=== PATIENT | female | born 1975 | race Caucasian/White ===

== ENCOUNTER 2017-04-26 12:59 | Inpatient (IN) | payer OTHER ==
[~2017-04-26] VITALS: Ht 157.5 cm; Wt 69.6 kg
[~2017-04-26 12:59] MED LIST: NORMOSOL R INJ 1,000 ML IV ONE; ONDANSETRON HCL 4 MG/2 ML VIAL IV PUSH ONE; PROPOFOL 200 MG/20 ML AMP IV ONE
[2017-04-26] MEDS ORDERED: SODIUM CHLOR 0.9% 1000 ML INJ 1,000 ML IV ONE (13:01)
[2017-04-26 13:13] LABS: BASOPHIL % 0.3 % (0.0-2.0); EOSINOPHIL # 0.3 TH/MM3 (0-0.4); EOSINOPHIL % 2.7 % (0.0-4.0); HEMATOCRIT 38.7 % (35.0-46.0); HEMO FLAGS DIFF FINAL; LYMPH % 26.9 % (9.0-44.0); LYMPHOCYTE # 2.6 TH/MM3 (1.0-4.8); MEAN CELL VOLUME 91.8 FL (80.0-100.0); MEAN CORPUSCULAR HEMOGLOBIN 31.3 PG (27.0-34.0); MONO % 9.7 % (0.0-8.0); NEUT % 60.4 % (16.0-70.0); PLATELET COUNT 364 TH/MM3 (150-450); RED BLOOD COUNT 4.22 MIL/MM3 (4.00-5.30); RED CELL DISTRIBUTION WIDTH 11.9 % (11.6-17.2); WHITE BLOOD COUNT 9.8 TH/MM3 (4.0-11.0)
--- NOTE | 2017-04-26 13:18 | RADHPO ---
EXAM DATE/TIME: 04/26/2017 12:51 [facility] COMPARISON: No previous studies available for comparison. INDICATIONS : Stroke alert. Left facial drooping and left extremity weakness. RADIATION DOSE: 58.56 CTDIvol (mGy) This report was called by Dr. Torres to Dr. Curtis at 1: 15 PM MEDICAL HISTORY : Non-responsive. SURGICAL HISTORY : Non-responsive. ENCOUNTER: Initial ACUITY: 1 day PAIN SCALE: Non-responsive LOCATION: cranial TECHNIQUE: Multiple contiguous axial images were obtained of the head. Using automated exposure control and adj ustment of the mA and/or kV according to patient size, radiation dose was kept as low as reasonably a chievable to obtain optimal diagnostic quality images. FINDINGS: CEREBRUM: The ventricles are normal for age. No evidence of midline shift, mass lesion, hemorrhage or acute in farction. No extra-axial fluid collections are seen. POSTERIOR FOSSA: The cerebellum and brainstem are intact. The 4th ventricle is midline. The cerebellopontine angle i s unremarkable. EXTRACRANIAL: The visualized portion of the orbits is intact. SKULL: The calvaria is intact. No evidence of skull fracture. CONCLUSION: Normal examination for a patient of this age. Jerry Torres MD on April 26, 2017 at 13:14 Board Certified Radiologist. This report was verified electronically.
[2017-04-26 13:23] LABS: CHLORIDE 106 MEQ/L (98-107); POTASSIUM 3.4 MEQ/L (3.5-5.1); SODIUM (NA) 138 MEQ/L (136-145)
[2017-04-26 13:30] VITALS: O2SAT 99
[2017-04-26] MEDS ORDERED: ALTEPLASE DRIP IV ONE (13:30)
[2017-04-26] MEDS ORDERED: MISCELLANEOUS NURSING INFORMATION XX PRN (13:30)
[2017-04-26] MEDS ORDERED: SODIUM CHLORIDE 0.9% 50 ML BAG IVF ONE (13:30)
[2017-04-26] MEDS ORDERED: ALTEPLASE BOLUS 9 MG/9 ML SYR IV ONE (13:30)
[2017-04-26 13:33] LABS: BETA HCG QUANT LESS THAN 1 MIU/ML (0-5)
[2017-04-26 13:36] LABS: BLOOD, URINE NEG (NEG); GLUCOSE,URINE NEG (NEG); KETONE, URINE NEG (NEG); NITRITE,URINE NEG (NEG)
[2017-04-26 13:40] LABS: METHOD OF COLLECTION CATH; URINE COLOR STRAW (YELLW/STRAW)
[2017-04-26 13:41] LABS: RBC, URINE 0-3 /hpf (0-3)
[2017-04-26 13:42] LABS: GLOMERULAR FILTRATION RATE 91 ML/MIN (>89)
[2017-04-26 13:43] LABS: BLOOD UREA NITROGEN 10 MG/DL (7-18)
--- NOTE | 2017-04-26 13:51 | PD ---
HPI Chief Complaint: Neuro Symptoms/ Deficits Time Seen by Provider: 13:01 Travel History International Travel<30 days: No Contact w/Intl Traveler<30days: No Traveled to known affect area: No History of Present Illness HPI Patient is a 42-year-old female who comes in with sudden onset of left-sided paralysis as well as left facial droop. 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 She says that she was feeling dizzy and hot and developed a right-sided headache prior to the symptoms. Per coworkers, she all of a sudden was unable to speak to them. On arrival to the emergency department, she is unable to move her left side. She says she has a slight right-sided headache, denies any other symptoms. She denies taking any medications or supplements. Her coworker says that she has been under a lot of stress lately. PFSH Past Medical History Medical other: Yes (UNABLE TO OBTAIN AT THIS TIME) ?: Unknown Social History Alcohol Use: No Tobacco Use: No Substance Use: No Allergies-Medications (Allergen,Severity, Reaction): Coded Allergies: Shellfish (Verified Allergy, Unknown, 04/26/17) Reported Meds & Prescriptions Reported Meds & Active Scripts Active No Active Prescriptions or Reported Medications Review of Systems Except as stated in HPI: all other systems reviewed are Neg General / Constitutional: No: Fever, Chills Eyes: No: Blurred Vision HENT: Positive: Headaches Cardiovascular: No: Chest Pain or Discomfort Respiratory: No: Shortness of Breath Gastrointestinal: No: Nausea, Vomiting Musculoskeletal: No: Pain Skin: No Change in Pigmentation Neurologic: Positive: Dizziness, Sensory Disturbance Physical Exam Narrative GENERAL: Awake and alert, in no acute distress. SKIN: Focused skin assessment warm/dry. HEAD: Atraumatic. Normocephalic. EYES: Pupils equal and round. No scleral icterus. Left-sided lateral gaze palsy. ENT: Mucous membranes pink and moist. NECK: Trachea midline. No JVD. CARDIOVASCULAR: Regular rate and rhythm. No murmur appreciated. RESPIRATORY: No accessory muscle use. Clear to auscultation. Breath sounds equal bilaterally. GASTROINTESTINAL: Abdomen soft, non-tender, nondistended. MUSCULOSKELETAL: No obvious deformities. No clubbing. No cyanosis. No edema. NEUROLOGICAL: Awake and alert. Left-sided facial droop. Slight slurring of speech. No resistance to gravity of the left arm. No resistance to gravity of the left leg. Slight movement of her left leg. PSYCHIATRIC: Appropriate mood and affect; insight and judgment normal. Data Data Last Documented VS Vital Signs Date Time Temp Pulse Resp B/P Pulse Ox O2 Delivery O2 Flow Rate FiO2 04/26/17 13:30 99 Room Air Orders Cath For Specimen (04/26/17 13:) Neuro Checks Q2HX12,Q4H (04/26/17 13:01) Nursing Bedside Swallow Assess .ONCE (04/26/17 13:) Activity Bed Rest (04/26/17 13:01) Diet Npo (04/26/17 Lunch) Prothrombin Time / Inr (Pt) (04/26/17 13:) Act Partial Throm Time (Ptt) (04/26/17 13:) Complete Blood Count With Diff (04/26/17 13:) Basic Metabolic Panel (Bmp) (04/26/17 13:) Fibrinogen (04/26/17 13:) Creatine Kinase (Cpk) (04/26/17 13:01) Troponin I (04/26/17 13:01) Ua Includes Microscopic (04/26/17 13:01) Drug Screen, Random Urine (04/26/17 13:) Type And Screen (04/26/17 13:) Ct Brain W/O Iv Contrast(Rout) (04/26/17 ) Chest, Single Ap (04/26/17 ) Beta Hcg (Quant/Titer) (04/26/17 13:01) Consult Neurology (04/26/17 13:01) Sodium Chlor 0.9% 1000 Ml Inj (Ns 1000 M (04/26/17 13:01) Blood Glucose (04/26/17 13:01) Ecg Monitoring (04/26/17 13:01) Iv Access Insert/Monitor (04/26/17 13:) NPO (04/26/17 13:01) Oximetry (04/26/17 13:01) Oxygen Administration (04/26/17 13:01) Resp Oxygen Hever C Titrat 1-4 L (04/26/17 13:01) Cta Brain W Iv Contrast W 3d (04/26/17 13:16) Cta Neck W Iv Contrast W 3d (04/26/17 13:16) ^ Call Pharmacy (04/26/17 13:16) Nih Stroke Scale - Nihss .ONCE (04/26/17 13:16) Urinary Catheter Management MEGHNA.Q8H (04/26/17 13:16) Urinary Catheter Insert/Apply (04/26/17 13:16) Anticoagulant Alert (04/26/17 13:16) ^ Post Infusion Restrictions (04/26/17 13:16) ^ Medication Alert (04/26/17 13:16) Vital Signs (Adult) .As directed (04/26/17 13:16) Notify Dr: Blood Pressure (04/26/17 13:16) ^ Medication Alert (04/26/17 13:16) Alteplase Bolus (Activase Bolus) (04/26/17 13:30) Alteplase Drip (Activase Drip) (04/26/17 13:30) Sodium Chloride 0.9% Inj (Ns Inj) (04/26/17 13:30) Misc Nursing Information (04/26/17 13:30) Resp Oxygen Hever C Titrat 1-4 L (04/26/17 ) (Hub Use Only)Inp Phy Cons/Ref (04/26/17 ) Lupus Anticoagulant Drvvt (04/26/17 13:41) Cardiolipin Abs Igg,Igm,Iga (04/26/17 13:41) Protein C Activity (04/26/17 13:41) Protein S Activity (04/26/17 13:41) Factor V (5) Mutation (Leiden) (04/26/17 13:41) Prothrombin [id number] Mutation (04/26/17 13:41) Lipid Profile (04/26/17 13:41) Scd Bilateral/Knee High MEGHNA.QSHIFT (04/26/17 13:41) Consult Rehab Medicine (04/26/17 ) Admit Order (Ed Use Only) (04/26/17 ) CKMB (04/26/17 13:05) CKMB% (04/26/17 13:05) Labs Laboratory Tests Test 04/26/17 04/26/17 13:05 13:33 White Blood Count 9.8 TH/MM3 Red Blood Count 4.22 MIL/MM3 Hemoglobin 13.2 GM/DL Hematocrit 38.7 % Mean Corpuscular Volume 91.8 FL Mean Corpuscular Hemoglobin 31.3 PG Mean Corpuscular Hemoglobin 34.0 % Concent Red Cell Distribution Width 11.9 % Platelet Count 364 TH/MM3 Mean Platelet Volume 8.0 FL Neutrophils (%) (Auto) 60.4 % Lymphocytes (%) (Auto) 26.9 % Monocytes (%) (Auto) 9.7 % Eosinophils (%) (Auto) 2.7 % Basophils (%) (Auto) 0.3 % Neutrophils # (Auto) 6.0 TH/MM3 Lymphocytes # (Auto) 2.6 TH/MM3 Monocytes # (Auto) 0.9 TH/MM3 Eosinophils # (Auto) 0.3 TH/MM3 Basophils # (Auto) 0.0 TH/MM3 CBC Comment DIFF FINAL Differential Comment Prothrombin Time 9.8 SEC Prothromb Time International 0.9 RATIO Ratio Activated Partial 25.8 SEC Thromboplast Time Fibrinogen 337 mg/dL Sodium Level 138 MEQ/L Potassium Level 3.4 MEQ/L Chloride Level 106 MEQ/L Carbon Dioxide Level 20.8 MEQ/L Anion Gap 11 MEQ/L Blood Urea Nitrogen 10 MG/DL Creatinine 0.70 MG/DL Estimat Glomerular Filtration 91 ML/MIN Rate Random Glucose 105 MG/DL Calcium Level 8.5 MG/DL Total Creatine Kinase 238 U/L Creatine Kinase MB 1.6 NG/ML Creatine Kinase MB % 0.7 % Troponin I LESS THAN 0.02 NG/ML Triglycerides Level 76 MG/DL Cholesterol Level 194 MG/DL LDL Cholesterol 81 MG/DL HDL Cholesterol 97.6 MG/DL Cholesterol/HDL Ratio 1.98 RATIO Human Chorionic Gonadotropin, LESS THAN 1 Quant MIU/ML Blood Type A POSITIVE Antibody Screen NEGATIVE Blood Bank Comment Urine Collection Type CATH Urine Color STRAW Urine Turbidity CLEAR Urine pH 6.0 Urine Specific [place] 1.005 Urine Protein NEG mg/dL Urine Glucose (UA) NEG mg/dL Urine Ketones NEG mg/dL Urine Occult Blood NEG Urine Nitrite NEG Urine Bilirubin NEG Urine Leukocyte Esterase NEG Urine RBC 0-3 /hpf Urine Opiates Screen NEG Urine Barbiturates Screen NEG Urine Amphetamines Screen NEG Urine Benzodiazepines Screen NEG Urine Cocaine Screen NEG Urine Cannabinoids Screen NEG MDM Medical Decision Making Medical Screen Exam Complete: Yes Emergency Medical Condition: Yes Interpretation(s) ECG shows normal sinus rhythm at 87, no ST elevation or depression, right bundle -branch block. Differential Diagnosis ICH versus ischemic stroke versus TIA Narrative Course Patient is a 42-year-old female comes in with sudden onset of left-sided weakness and facial droop. Exam shows a left-sided facial droop and flaccid paralysis of her left arm and leg. Patient placed on monitor, taken to CT immediately. CT head is negative for bleed. Patient's blood pressure is controlled. I spoke with Dr. Gomez of neurology who suggests starting TPA She was started on TPA. Labs were sent, so far show no acute abnormalities. CTA of the brain and neck performed. Patient monitored with there are checks. Monitored on patternmaker grader while on TPA. She'll be transferred to the main hospital for ICU admission. Critical Care Narrative Aggregate critical care time was 35 minutes. Time to perform other separately billable procedures was not included in the critical care time. My time did not include minutes spent treating any other patients simultaneously or on activities that did not directly contribute to the patient's treatment. The services I provided to this patient were to treat and/or prevent clinically significant deterioration that could result in: Serious injury or I provided critical care services requiring my management, as noted below: Chart data review, documentation time, medication orders and management, vital sign assessments/reviewing monitor data, ordering and reviewing lab tests, ordering and interpreting/reviewing x-rays and diagnostic studies, care of the patient and discussion of the patient with the admitting physicians. Diagnosis Primary Impression: CVA (cerebral vascular accident) Qualified Code: I63.9 - Cerebrovascular accident (CVA), unspecified mechanism Admitting Information Admitting Physician Requests: Admit Scripts No Active Prescriptions or Reported Meds Condition: Lisa Rankin MD April 26, 2017 13:51
[2017-04-26] MEDS: SODIUM CHLOR 0.9% 1000 ML INJ 1,000 ML IV SCH (14:10)
--- NOTE | 2017-04-26 14:11 | RADHPO ---
EXAM DATE/TIME: 04/26/2017 14:01 [facility] COMPARISON: No previous studies available for comparison. INDICATIONS : Stroke alert. MEDICAL HISTORY : None. SURGICAL HISTORY : None. ENCOUNTER: Initial ACUITY: 1 day PAIN SCORE: Non-responsive. LOCATION: Bilateral chest FINDINGS: A single view of the chest demonstrates the lungs to be symmetrically aerated without evidence of mas s, infiltrate or effusion. The cardiomediastinal contours are unremarkable. Osseous structures are intact. CONCLUSION: No acute cardiopulmonary disease radiographically. Cyrus Orozco MD on April 26, 2017 at 14:08 Board Certified Radiologist. This report was verified electronically.
[2017-04-26] MEDS ORDERED: MAGNESIUM OXIDE 400 MG TAB PO PRN (14:15)
[2017-04-26] MEDS ORDERED: POTASSIUM PHOSPHATE MONOBASIC 500 MG TAB PO PRN (14:15)
[2017-04-26] MEDS ORDERED: CHLORHEXIDINE GLUCONATE 2 % 1 PACK (2 CLOTHS) TOP PRN (14:15)
[2017-04-26] MEDS ORDERED: POTASSIUM CHLOR 20 MEQ PREMIX 100 ML IV PRN ×2 (14:15)
[2017-04-26] MEDS ORDERED: POTASSIUM PHOSPHATE MONOBASIC 500 MG TAB PO/TUBE PRN (14:15)
[2017-04-26] MEDS ORDERED: MAGNESIUM SULFATE INJ 4 GM in SODIUM CHLORIDE 0.9% INJ 92 ML IV PRN (14:15)
[2017-04-26] MEDS ORDERED: ONDANSETRON HCL 4 MG/2 ML VIAL IV PRN (14:15)
[2017-04-26] MEDS ORDERED: MISCELLANEOUS NURSING INFORMATION XX SCH (14:15)
[2017-04-26] MEDS ORDERED: MAGNESIUM SULFATE INJ 2 GM in SODIUM CHLORIDE 0.9% INJ 96 ML IV PRN (14:15)
[2017-04-26 14:22] LABS: APTT (PATIENT) 25.8 SEC (24.3-30.1); INTERNATIONAL NORMALIZED RATIO 0.9 RATIO; PROTHROMBIN TIME - PATIENT 9.8 SEC (9.8-11.6)
[2017-04-26] MEDS ORDERED: IOHEXOL 350 MG/ML 10 ML VIAL (for RAD DIAG) IV ONE (14:23)
--- NOTE | 2017-04-26 14:27 | RADHPO ---
EXAM DATE/TIME: 04/26/2017 13:39 [facility] COMPARISON: No previous studies available for comparison. INDICATIONS : Stroke alert. Left sided weakness and facial numbness. IV CONTRAST: 75 cc Omnipaque 350 (iohexol) IV ; Cumulative dose for multiple exams. RADIATION DOSE: 42.21 CTDIvol (mGy) ; Combined studies MEDICAL HISTORY : Non-responsive. SURGICAL HISTORY : Non-responsive. ENCOUNTER: Initial ACUITY: 1 day PAIN SCALE: 0/10 LOCATION: cranial TECHNIQUE: Volumetric scanning was performed using a multi-row detector CT scanner. The data was post processed with a variety of visualization algorithms including full volume maximum intensity projection, multi -planar sliding thin slab reformation, curved planar reformation, and surface rendering techniques. Using automated exposure control and adjustment of the mA and/or kV according to patient size, radiat ion dose was kept as low as reasonably achievable to obtain optimal diagnostic quality images. FINDINGS: CTA NECK: There is 3 vessel arch anatomy. The proximal arch vessels are widely patent. There is a dominant left vertebral artery. The vertebral arteies are otherwise patent bilaterally with filling of the basilar artery. The carotid arteries are patent bilaterally. There is no significant atherosclerosis or sten osis. Internal carotid arteries are patent with flow to the cervical vessels bilaterally. External ca rotid arteries are also patent bilaterally. CTA HEAD: There is occlusion of the right proximal M1 segment. There is collateral filling of the M2 and M3 bra nches. There is a complete point hope ira of [place]. There is excellent visualization of the major intracrani al arteries out to the second-order branch vessels. There is no evidence for aneurysm and no evidenc e for vascular malformation. NON-ANGIOGRAPHIC FINDINGS: The mendoza-white matter differentiation is grossly intact. Basal ganglia appear symmetrical bilaterally . Ventricles are normal in size without evidence for hydrocephalus. No significant intra-or extra-axi al fluid collections or hemorrhage. Paranasal sinuses are clear. No significant cervical adenopathy o r focal mass. Small 5 mm right thyroid nodule visualized lung apex is clear. The visualized main pulm onary artery branches are also patent. CONCLUSION: 1. Occlusion of the right M1 segment. Grossly intact mendoza-white matter differentiation with gross ASP ECT score of 10/10. 2. Incidental finding of 5 mm right thyroid nodule. This can be further evaluated with ultrasound on an outpatient basis. Cyrus Orozco MD on April 26, 2017 at 14:10 Board Certified Radiologist. This report was verified electronically.
--- NOTE | 2017-04-26 14:32 | RADHPO ---
EXAM DATE/TIME: 04/26/2017 13:39 [facility] COMPARISON: No previous studies available for comparison. INDICATIONS : Stroke alert. Left sided weakness and facial numbness. IV CONTRAST: 75 cc Omnipaque 350 (iohexol) IV ; Cumulative dose for multiple exams. RADIATION DOSE: 42.21 CTDIvol (mGy) ; Combined studies MEDICAL HISTORY : Non-responsive. SURGICAL HISTORY : Non-responsive. ENCOUNTER: Initial ACUITY: 1 day PAIN SCALE: 0/10 LOCATION: neck Elevated flow velocities and ICA/CCA ratios have been found to correlate with increased degrees of vessel stenosis, calculated as percentage of diameter relative to a normal segment of distal ICA/CCA. TECHNIQUE: Volumetric scanning was performed using a multirow detector CT scanner. The data was post processed with a variety of visualization algorithms including full-volume maximum intensity projection, multip lanar sliding thin-slab reformation, curved-planar reformation, and surface-rendering techniques. Us ing automated exposure control and adjustment of the mA and/or kV according to patient size, radiatio n dose was kept as low as reasonably achievable to obtain optimal diagnostic quality images. FINDINGS: AORTIC ARCH: There is a three-vessel origin of the great vessels from the aorta. No evidence of ostial narrowing. RIGHT CAROTID: The common carotid artery is intact. The carotid bulb has a normal configuration without ulceration o r narrowing. The internal carotid artery lumen is smooth without stenosis. The external carotid doretha ry is intact. LEFT CAROTID: The common carotid artery is intact. The carotid bulb has a normal configuration without ulceration or narrowing. The internal carotid artery lumen is smooth without stenosis. The external carotid ar keira is intact. VERTEBRALS: The right vertebral artery is small in caliber. No stenotic lesions are seen. NON-ANGIOGRAPHIC FINDINGS: No significant cervical mass or adenopathy. 5 mm right thyroid nodule. Lung apices are clear. Osseous structures are intact without evidence for acute bony fracture or focal bony destruction. CONCLUSION: 1. Standard 3 vessel arch anatomy. 2. Widely patent carotid arteries. 3. Dominant left vertebral artery. Vertebral arteries are patent bilaterally. 4. 5 mm right thyroid nodule. This can be further evaluated with ultrasound on an outpatient basis. Cyrus Orozco MD on April 26, 2017 at 14:26 Board Certified Radiologist. This report was verified electronically.
[2017-04-26] MEDS ORDERED: fentaNYL CITRATE 250 MCG/5 ML AMP ONE (14:43)
[2017-04-26] MEDS ORDERED: MIDAZOLAM HCL 5 MG/5 ML VIAL ONE (14:43)
[2017-04-26] MEDS ORDERED: VERAPAMIL HCL 5 MG/2 ML VIAL ONE ×3 (14:54→17:26)
[2017-04-26 15:00] LABS: AMPHETAMINE, URINE NEG (NEG); BARBITURATES, URINE NEG (NEG); COCAINE, URINE NEG (NEG)
[2017-04-26] MEDS ORDERED: DOPamine INJ PREMIX 500 ML ONE (15:03)
[2017-04-26] MEDS ORDERED: VASOPRESSIN INJ 20 UNITS/ML VIAL ONE ×2 (15:29→17:22)
[2017-04-26] MEDS ORDERED: niCARdipine INJ 25 MG in SODIUM CHLOR 0.9% 250 ML INJ 250 ML IV SCH (15:30)
--- NOTE | 2017-04-26 15:30 | HHI.HP ---
[facility] Service Critical Care Medicine Primary Care Physician Tenzin Villalba MD Admission Diagnosis CVA Diagnosis: Chief Complaint: left sided weakness Travel History International Travel<30 Days: No Contact w/Intl Traveler <30 Da: No Traveled to Known Affected Are: No History of Present Illness This is a 42yF with unremarkable past medical history who presents to the [facility] emergency department with new-onset left-sided weakness and slurred speech. She is an employee of [employer] who had a witnessed onset of her symptoms at 12:45pm. In the [facility] ED she was immediately taken for non-contrasted head CT which was negative for acute hemorrhage. She was given iv tpa which was instituted 36 minutes after arrival, per my conversation with the preventive maintenance coordinator. She was then emergently transferred to [facility]. CT angiography demonstrated acute right m1 cut-off. She was taken by [facility] and arrived directly to the IR suite, where I met and evaluated the patient. Due to the acute nature of her illness and her dysarthria, a complete history is not obtainable. She does endorse right-sided headache, although denied any chest pain, shortness of breath. Review of Systems ROS Limitations: Clinical Condition, Altered Mental Status, Speech Impaired Past Family Social History Allergies: Coded Allergies: Shellfish (Verified Allergy, Unknown, 04/26/17) Past Medical History per other records, none. patient is unable to participate in a complete past medical history. Past Surgical History per other records, none. patient is unable to participate in a complete past surgical history. Reported Medications per other records, none. patient is unable to participate in a complete medication list. she does deny any anticoagulant medicines. Active Ordered Medications See MAR Family History patient unable to participate in a complete family history due to her clinical condition. Social History patient is unable to participate in social history due to her clinical condition. 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 Physical Exam Vital Signs Vital Signs Date Time Temp Pulse Resp B/P Pulse Ox O2 Delivery O2 Flow Rate FiO2 04/26/17 13:30 99 Room Air 04/26/17 13:00 99 Physical Exam gen: middle-aged female, lying in bed, severe distress due to her new weakness heent: pupils, equal, round, reactive, conjugate. mucous membranes moist. noted left-sided facial droop neck: no jvd. trachea midline. chest: equal chest rise. not tachypneic cv: normal rate, regular rhythm. sinus by tele. abd: soft, nontender, nondistended. no guarding. extr: no peripheral edema. distal pulses 2+ neuro: RASS 0. MILY 0/5 in LUE/LLE. MILY 5/5 RUE/RLE. dysarthric. left-sided facial droop. receptive and expressive language intact. noted left-sided neglect.tongue is midline. Laboratory Laboratory Tests Test 04/26/17 04/26/17 13:05 13:33 White Blood Count 9.8 Red Blood Count 4.22 Hemoglobin 13.2 Hematocrit 38.7 Mean Corpuscular Volume 91.8 Mean Corpuscular Hemoglobin 31.3 Mean Corpuscular Hemoglobin 34.0 Concent Red Cell Distribution Width 11.9 Platelet Count 364 Mean Platelet Volume 8.0 Neutrophils (%) (Auto) 60.4 Lymphocytes (%) (Auto) 26.9 Monocytes (%) (Auto) 9.7 Eosinophils (%) (Auto) 2.7 Basophils (%) (Auto) 0.3 Neutrophils # (Auto) 6.0 Lymphocytes # (Auto) 2.6 Monocytes # (Auto) 0.9 Eosinophils # (Auto) 0.3 Basophils # (Auto) 0.0 CBC Comment DIFF FINAL Differential Comment Prothrombin Time 9.8 Prothromb Time International 0.9 Ratio Activated Partial 25.8 Thromboplast Time Fibrinogen 337 Sodium Level 138 Potassium Level 3.4 Chloride Level 106 Blood Urea Nitrogen 10 Creatinine 0.70 Estimat Glomerular Filtration 91 Rate Random Glucose 105 Human Chorionic Gonadotropin, LESS THAN 1 Quant Blood Type A POSITIVE Antibody Screen NEGATIVE Blood Bank Comment Urine Collection Type CATH Urine Color STRAW Urine Turbidity CLEAR Urine pH 6.0 Urine Specific [place] 1.005 Urine Protein NEG Urine Glucose (UA) NEG Urine Ketones NEG Urine Occult Blood NEG Urine Nitrite NEG Urine Bilirubin NEG Urine Leukocyte Esterase NEG Urine RBC 0-3 Urine Opiates Screen NEG Urine Barbiturates Screen NEG Urine Amphetamines Screen NEG Urine Benzodiazepines Screen NEG Urine Cocaine Screen NEG Urine Cannabinoids Screen NEG Result Diagram: 04/26/17 1305 04/26/17 1305 Imaging Last Impressions Neck CTA 04/26/17 1316 Signed Impressions: Service Date/Time: Wednesday, April 26, 2017 13:39 - CONCLUSION: 1. Standard 3 vessel arch anatomy. 2. Widely patent carotid arteries. 3. Dominant left vertebral artery. Vertebral arteries are patent bilaterally. 4. 5 mm right thyroid nodule. This can be further evaluated with ultrasound on an outpatient basis. Cyrus Orozco MD Head CTA 04/26/17 1316 Signed Impressions: Service Date/Time: Wednesday, April 26, 2017 13:39 - CONCLUSION: 1. Occlusion of the right M1 segment. Grossly intact mendoza-white matter differentiation with gross ASPECT score of 10/10. 2. Incidental finding of 5 mm right thyroid nodule. This can be further evaluated with ultrasound on an outpatient basis. Cyrus Orozco MD Head CT 04/26/17 0000 Signed Impressions: Service Date/Time: Wednesday, April 26, 2017 12:51 - CONCLUSION: Normal examination for a patient of this age. Jerry Torres MD Chest X-Ray 04/26/17 0000 Signed Impressions: Service Date/Time: Wednesday, April 26, 2017 14:01 - CONCLUSION: No acute cardiopulmonary disease radiographically. Cyrus Orozco MD Assessment and Plan Assessment and Plan Assessment: 42yF with acute right M1 MCA CVA now s/p systemic TPA and currently in interventional radiology for mechanical thrombectomy. She is very critically ill at this time. Active Problems: Acute right M1 MCA CVA s/p systemic TPA and endovascular thrombectomy Dysarthria Left-sided hemiparesis Left-sided facial droop Plan: -- admit to ICU -- SBP goals per my discussion with interventionalist will be 140 - 160 -- phenylephrine and nicardipine will be used prn to achieve these goals. -- q1h neuro checks -- interval head CT in 24h -- nursing bedside swallow eval before advancing diet -- 2d echo -- lipid panel -- telemetry -- holding off on ASA or anticoagulation given TPA. -- SCDs -- pepcid iv for gi prophylaxis Critical care time: 65 minutes, exclusive of separately billable procedures. Code Status Full Code Remi Freeman MD April 26, 2017 15:30
[2017-04-26 15:32] LABS: HDL CHOLESTEROL 97.6 MG/DL (40.0-60.0)
[2017-04-26] MEDS ORDERED: METOCLOPRAMIDE HCL 10 MG/2 ML VIAL ONE (15:38)
[2017-04-26 16:05] LABS: ANION GAP 11 MEQ/L (5-15); BICARBONATE 20.8 MEQ/L (21.0-32.0)
[2017-04-26 16:09] LABS: CREATINE KINASE 238 U/L (26-192)
[2017-04-26 16:26] LABS: CKMB 1.6 NG/ML (0.5-3.6)
[2017-04-26] MEDS ORDERED: HEPARIN SODIUM - IV 10,000 UNITS/10 ML VIAL ONE (16:32)
--- NOTE | 2017-04-26 17:04 | MB ---
cc: MIRIAM POP DATE OF CONSULTATION 04/26/17 REASON FOR CONSULTATION Stroke alert HISTORY OF PRESENT ILLNESS Ms. Toledo is a 42-year-old female who had the acute onset at 12:45 today of a dense left-sided weakness as well as speech difficulty. She came immediately to the emergency room and a stroke alert was called. In the interim, she has had improvement in his speech but continues with dense left-sided weakness as well as a left neglect. NIH stroke scale initially was 14. PAST MEDICAL HISTORY Unremarkable. MEDICATIONS None. ALLERGIES SHELLFISH She has never had IV contrast dye NEUROLOGIC EXAMINATION The patient is alert. Speech is dysarthric. Cranial nerves: There is a left facial droop. The pupils are equal. The extraocular movements are intact. She does have a left-sided neglect. On motor exam, she is very weak in the left arm rated at about 1/5 proximally and distally. Left leg is 2/5 proximal and distal. She has normal strength on the right side. Reflexes are symmetric. IMAGING STUDIES CT brain negative. LABORATORY DATA White count 9800, hemoglobin 13.2, hematocrit 38.7%, platelet count 364,000. Sodium is 138, potassium 3.4, chloride 106, glucose was normal at 98. Beta hCG less than one. Coags pending. UA pending. Telemetry sinus rhythm. IMPRESSION Acute right hemisphere stroke. RECOMMENDATIONS The patient is a candidate for IV TPA and has received the bolus of TPA and is currently receiving the infusion. Would also recommend CT angiography of the neck and brain stat to be sure there is no large vessel occlusion amendable to INR given the high NIH stroke scale. Follow the post TPA protocol. The patient will be transferred to the main hospital following the CT angiogram for further monitoring and evaluation. I discussed the case with Dr. Jason Grayson of interventional radiology who is going to be reviewing the CTA results as soon as they are available to determine whether or not she would be a candidate for intervention. MD DAKOTA Franco/ /1:42 PM /4:48 PM
[2017-04-26 17:47] LABS: BLOOD GAS BASE EXCESS -7.7 mmol/L (-2-2); BLOOD GAS CARBOXYHEMOGLOBIN 2.3 % (0-4); BLOOD GAS HCO3 17 mmol/L (22-26); BLOOD GAS METHEMOGLOBIN 0.7 % (0-2); BLOOD GAS O2 HGB SATURATION 96 % (90-100); BLOOD GAS OXYGEN CONTENT 14.3 Vol % (12.0-20.0); BLOOD GAS PCO2 35 mmHg (38-42); BLOOD GAS PO2 181 mmHG (61-120); BLOOD GAS TOTAL HGB 10.3 G/DL (12.0-16.0); TEMP CORR TO 98.6
[2017-04-26 17:48] LABS: CRITICAL VALUE NO; OXYGEN DEVICE VENTILATOR
[2017-04-26 17:52] LABS: DRAW SITE RT RADIAL; FIO2 100 %; NUMBER OF ARTERIAL PUNCTURES 1; STAT YES; ULNAR PULSE Y; VENT SETTINGS AC/VT500/R14/P5
--- NOTE | 2017-04-26 17:57 | PD.CONS ---
HPI Service Neurosurgery Consult Requested By Dr Freeman Reason for Consult Stroke alert Primary Care Physician Tenzin Villalba MD History of Present Illness This is a 42 year old female who presents to the [facility] emergency department with new-onset left-sided weakness and slurred speech. She is an employee of [employer] who had a witnessed onset of her symptoms at 12:45pm. In the [facility] ED she was immediately taken for non-contrasted head CT which was negative for acute hemorrhage. No seizure activity. She was given iv TPA. She was then emergently transferred to [facility]. CT angiography demonstrated acute right m1 cut-off. She was taken by [facility] and arrived directly to the IR suite Review of Systems ROS Limitations: Clinical Condition, Intubated, Altered Mental Status Past Family Social History Allergies: Coded Allergies: Shellfish (Verified Allergy, Unknown, 04/26/17) Past Medical History No medical conditions Active Ordered Medications Current Medications Sodium Chloride (NS 1000 ml Inj) 1,000 ml @ 70 mls/hr [id number] ONCE IV ; Start 04/26/17 at 13:01; Stop 04/27/17 at 03:18; Status DC Alteplase, Recombinant 5.6 mg 5.6 mg ONCE ONCE IV Last administered on 13:30; Start 04/26/17 at 13:30; Stop 04/26/17 at 13:31; Status DC Alteplase, Recombinant/ Syringe / Bag (Activase Drip/ Syringe/Bag) 50.4999 ml @ 50.5 mls/ hr ONCE ONCE IV Last administered on 04/26/17 13:30; Start at 13:30; Stop 04/26/17 at 14:29; Status DC Sodium Chloride (NS Inj) 30 ml ONCE ONCE IVF ; Start 04/26/17 at 13:30; Stop at 13:31; Status DC Miscellaneous Information No Heparin, Warfarin, Aspir... UNSCH PRN XX SEE DOSE INSTRUCTIONS; Start 04/26/17 at 13:30; Stop 04/27/17 at 13:29; Status DC Magnesium Oxide 800 mg 800 mg UNSCH PRN PO For Magnesium 1.2 - 1.6 mg/dL; Start 04/26/17 at 14:15 Magnesium Sulfate 4 gm/Sodium Chloride 100 ml @ 50 mls/hr UNSCH PRN IV For Magnesium 0.9 - 1.1 mg/dL; Start 04/26/17 at 14:15 Magnesium Sulfate 2 gm/Sodium Chloride 100 ml @ 50 mls/hr UNSCH PRN IV For Magnesium 1.2 - 1.6 mg/dL; Start 04/26/17 at 14:15 Potassium Chloride 100 ml @ 50 mls/hr Q2H PRN IV For Potassium 2.8 - 3.2 mEq/L ; Start 04/26/17 at 14:15 Potassium Chloride 100 ml @ 50 mls/hr Q2H PRN IV For Potassium 3.3 - 3.5 mEq/ L Last administered on 04/27/17 13:31; Start 04/26/17 at 14:15 Potassium Chloride 100 ml @ 50 mls/hr Q2H PRN IV For Potassium 2.8 - 3.2 mEq/ L Last administered on 04/30/17 01:53; Start 04/26/17 at 14:15 Potassium Chloride (KCl 40 Meq Premix Inj) 100 ml @ 25 mls/hr UNSCH PRN IV For Potassium 3.3 - 3.5 mEq/L Last administered on 04/29/17 06:28; Start at 14:15 Potassium Phosphate (K-Phos) 2,000 mg Q4H PRN PO For Phosphorus < 2.5 mg/dL Last administered on 04/28/17 05:25; Start 04/26/17 at 14:15 Potassium Phosphate 2000 mg 2,000 mg UNSCH PRN PO/TUBE SEE LABEL COMMENTS; Start 04/26/17 at 14:15 Sodium Phosphate/ Sodium Chloride (Sodium Phosphate Inj/NS 250 ml Inj) 250 ml @ 42 mls/hr UNSCH PRN IV For Phosphorus < 2.5 mg/dL Last administered on 18:52; Start 04/26/17 at 14:15 Dextrose (D50w (Vial) Inj) 25 ml UNSCH PRN IV PUSH HYPOGLYCEMIA-SEE COMMENTS; Start 04/26/17 at 14:15 Insulin Human Regular 1 1 ACHS AND 3AM SQ ; Start 04/26/17 at 16:00 Sodium Chloride (NS 1000 ml Inj) 1,000 ml @ 84 mls/hr [id number] IV ; Start at 14:10; Stop 04/27/17 at 13:32; Status DC Pantoprazole Sodium (Protonix Inj) 40 mg DAILY IV Last administered on 08:17; Start 04/27/17 at 09:00 Ondansetron HCl (Zofran Inj) 4 mg Q6H PRN IV NAUSEA OR VOMITING; Start at 14:15 Albuterol/ Ipratropium (Duoneb Neb) 1 ampule Q2HR NEB PRN INH WHEEZING; Start 04/26/17 at 14:15 Miscellaneous Information 1 [id number] XX ; Start 04/26/17 at 14:15 Chlorhexidine Gluconate (Chlorhexidine 2% Cloth) 3 pack Taper DAILY@04 TOP Last administered on 04/30/17 04:00; Start 04/27/17 at 04:00; Stop 04/23/18 at 03:59 Chlorhexidine Gluconate (Chlorhexidine 2% Cloth) 3 pack UNSCH PRN TOP HYGIENIC CARE; Start 04/26/17 at 14:15 Senna/Docusate Sodium (Avelina-Colace) 1 tab BID PO Last administered on 04/30/17 08:17; Start 04/26/17 at 21:00 Iohexol (Omnipaque 350 Inj) 75 ml STK-MED ONCE IV Last administered on 14:23; Start 04/26/17 at 14:23; Stop 04/26/17 at 14:24; Status DC Midazolam HCl (Versed Inj) 5 mg STK-MED ONCE .ROUTE ; Start 04/26/17 at 14:43; Stop 04/26/17 at 14:44; Status DC Fentanyl Citrate (fentaNYL INJ) 250 mcg STK-MED ONCE .ROUTE ; Start 04/26/17 at 14:43; Stop 04/26/17 at 14:44; Status DC Verapamil HCl 10 mg 10 mg STK-MED ONCE .ROUTE Last administered on 04/26/17 14 :54; Start 04/26/17 at 14:54; Stop 04/26/17 at 14:55; Status DC Dopamine HCl/ Dextrose (DOPamine INJ PREMIX) 500 ml @ As Directed STK-MED ONCE .ROUTE ; Start 04/26/17 at 15:03; Stop 04/26/17 at 15:04; Status DC Vasopressin 20 units 20 units STK-MED ONCE .ROUTE ; Start 04/26/17 at 15:29; Stop 04/26/17 at 15:30; Status DC Phenylephrine HCl 40 mg/Sodium Chloride 504 ml @ 0 mls/hr TITRATE IV Last administered on 04/30/17t 05:26; Start 04/26/17 at 16:30 Nicardipine HCl/ Sodium Chloride (Cardene Inj/NS 250 ml Inj) 260 ml @ 0 mls/hr TITRATE IV ; Start 04/26/17 at 15:30 Labetalol HCl (Trandate Inj) 20 mg Q15M PRN IV PUSH sbp > 160; Start 04/26/17 at 15:30 Hydralazine HCl (Apresoline Inj) 10 mg Q30M PRN IV PUSH sbp > 160; Start at 15:30 Metoclopramide HCl (Reglan Inj) 10 mg STK-MED ONCE .ROUTE ; Start 04/26/17 at 15 :38; Stop 04/26/17 at 15:39; Status DC Heparin Sodium (Porcine) (Heparin Inj) 10,000 units STK-MED ONCE .ROUTE ; Start 04/26/17 at 16:32; Stop 04/26/17 at 16:33; Status DC Verapamil HCl (Isoptin Inj) 5 mg STK-MED ONCE .ROUTE ; Start 04/26/17 at 16:57; Stop 04/26/17 at 16:58; Status DC Vasopressin (Pitressin Inj) 20 units STK-MED ONCE .ROUTE ; Start 04/26/17 at 17: 22; Stop 04/26/17 at 17:23; Status DC Verapamil HCl (Isoptin Inj) 30 mg STK-MED ONCE .ROUTE ; Start 04/26/17 at 17:26 ; Stop 04/26/17 at 17:27; Status DC Fentanyl Citrate 100 mcg 100 mcg STK-MED ONCE .ROUTE ; Start 04/26/17 at 18:14; Stop 04/26/17 at 18:15; Status DC Heparin Sodium/ Dextrose (Heparin-D5W Inj) 250 ml @ 0 mls/hr TITRATE IV Last administered on 04/26/17 21:26; Start 04/26/17 at 20:00; Stop 04/27/17 at 13:30 ; Status DC Iodixanol (VISIPAQUE 320 INJ (Rad Spec)) 165 ml STK-MED ONCE I-ARTERIAL Last administered on 04/26/17 20:00; Start 04/26/17 at 20:00; Stop 04/26/17 at 20:01 ; Status DC Heparin Sodium (Porcine) 70492 units 10,000 units STK-MED ONCE OTHER Last administered on 04/26/17 18:47; Start 04/26/17 at 18:47; Stop 04/26/17 at 20:21 ; Status DC Fentanyl Citrate 250 ml @ 0 mls/hr TITRATE IV Last administered on 04/30/17 14: 22; Start 04/26/17 at 21:45 Midazolam HCl 100 ml @ 0 mls/hr TITRATE IV Last administered on 04/28/17 06:49 ; Start 04/26/17 at 21:45; Stop 04/28/17 at 06:56; Status DC Propofol 100 ml @ 0 mls/hr TITRATE IV Last administered on 04/30/17 14:34; Start 04/26/17 at 22:00 Mannitol (Mannitol Inj) 50 ml @ As Directed STK-MED ONCE .ROUTE ; Start at 06:59; Stop 04/27/17 at 07:00; Status DC Fentanyl Citrate (fentaNYL INJ) 250 mcg STK-MED ONCE .ROUTE ; Start 04/27/17 at 07:16; Stop 04/27/17 at 07:17; Status DC Nicardipine HCl (Cardene Inj) 25 mg STK-MED ONCE .ROUTE ; Start 04/27/17 at 07: 18; Stop 04/27/17 at 07:19; Status DC Fentanyl Citrate (fentaNYL INJ) 250 mcg STK-MED ONCE .ROUTE ; Start 04/27/17 at 07:18; Stop 04/27/17 at 07:19; Status DC Vancomycin HCl (Vancomycin Inj) 1,000 mg STK-MED ONCE .ROUTE Last administered on 04/27/17 08:21; Start 04/27/17 at 07:24; Stop 04/27/17 at 07:25; Status DC Microfibriller Collagen Hemostat (Avitene Bandage) 1 bandage STK-MED ONCE .ROUTE Last administered on 04/27/17 09:58; Start 04/27/17 at 07:24; Stop at 07:25; Status DC Thrombin 09537 units 10,000 units STK-MED ONCE .ROUTE Last administered on 04/27 09:59; Start 04/27/17 at 07:24; Stop 04/27/17 at 07:25; Status DC Cefazolin Sodium/ Dextrose (Ancef 2 Gm Premix) 50 ml @ As Directed STK-MED ONCE .ROUTE ; Start 04/27/17 at 07:24; Stop 04/27/17 at 07:25; Status DC Gelatin (Gelfoam 100 Top) 1 foam STK-MED ONCE .ROUTE Last administered on 09:57; Start 04/27/17 at 07:24; Stop 04/27/17 at 07:25; Status DC Furosemide (Lasix Inj) 40 mg STK-MED ONCE .ROUTE ; Start 04/27/17 at 07:25; Stop 04/27/17 at 07:26; Status DC Levetriacetam (Keppra Inj) 1,000 mg STK-MED ONCE IV Last administered on 09:10; Start 04/27/17 at 07:25; Stop 04/27/17 at 07:26; Status DC Bacitracin (Baciguent Oint) 15 applic STK-MED ONCE .ROUTE Last administered on 04/27/17 09:57; Start 04/27/17 at 07:25; Stop 04/27/17 at 07:26; Status DC Gentamicin Sulfate 240 mg 240 mg STK-MED ONCE .ROUTE Last administered on 09:58; Start 04/27/17 at 07:25; Stop 04/27/17 at 07:26; Status DC Mannitol 50 ml @ As Directed STK-MED ONCE .ROUTE ; Start 04/27/17 at 07:25; Stop 04/27/17 at 07:26; Status DC Sodium Chloride (NS 250 ml Inj) 250 ml @ As Directed STK-MED ONCE .ROUTE ; Start 04/27/17 at 07:25; Stop 04/27/17 at 07:26; Status DC Mannitol 60 gm 60 gm NOW ONCE IV Last administered on 04/27/17 07:45; Start 04/27/17 at 07:45; Stop 04/27/17 at 07:46; Status DC Sodium Chloride (Sodium Chloride 3% Inj) 500 ml @ 10 mls/hr Q16H IV Last administered on 04/29/17 08:13; Start 04/27/17 at 07:45 Lidocaine/ Epinephrine 20 ml 20 ml STK-MED ONCE INFIL Last administered on 04/27 08:50; Start 04/27/17 at 08:50; Stop 04/27/17 at 10:02; Status DC Potassium Chloride/Sodium Chloride (NS + KCl 20 Meq Inj) 1,000 ml @ 20 mls/hr Q24H IV Last administered on 04/28/17 08:02; Start 04/27/17 at 10:16; Stop 04/28 at 11:42; Status DC IV Flush (NS Flush) 2 ml UNSCH PRN IVF FLUSH AFTER USING IV ACCESS; Start 04/27 at 10:30; Stop 04/29/17 at 17:45; Status DC IV Flush 2 ml 2 ml BID IVF Last administered on 04/29/17 08:16; Start 04/27/17 at 21:00; Stop 04/29/17 at 17:45; Status DC Cefazolin Sodium/ Dextrose 50 ml @ 100 mls/hr Q8H IV Last administered on 05:12; Start 04/27/17 at 14:00; Stop 04/28/17 at 06:29; Status DC Levetriacetam/ Sodium Chloride (Keppra Inj/NS Inj) 105 ml @ 400 mls/hr Q12H IV Last administered on 04/30/17 08:17; Start 04/27/17 at 21:00 Bisacodyl (Dulcolax Supp) 10 mg DAILY PRN RECTAL CONSTIPATION Last administered on 04/30/17 11:51; Start 04/27/17 at 10:30 Docusate Sodium (Colace) 100 mg BID PO Last administered on 04/30/17 08:17; Start 04/27/17 at 21:00 Pantoprazole Sodium (Protonix) 40 mg DAILY PO ; Start 04/28/17 at 09:00; Stop 04/28/17 at 09:00; Status DC Pantoprazole Sodium (Protonix Inj) 40 mg DAILY IVP ; Start 04/28/17 at 09:00; Status UNV Ondansetron HCl (Zofran Inj) 4 mg Q6H PRN IV NAUSEA OR VOMITING; Start at 10:30; Status UNV Calcium Gluconate 1 gm 1 gm UNSCH PRN IV SEE LABEL COMMENTS Last administered on 04/27/17 13:32; Start 04/27/17 at 10:30 Potassium Chloride 100 ml @ 50 mls/hr UNSCH PRN IV POTASSIUM LESS THAN 4; Start 04/27/17 at 10:30 Magnesium Sulfate/ Sodium Chloride (Magnesium Sulfate Inj/NS Inj) 108 ml @ 108 mls/hr UNSCH PRN IV MAGNESIUM LESS THAN 2 Last administered on 04/30/17 00:38; Start 04/27/17 at 10:30 Acetaminophen/ Hydrocodone Bitart (Eola 10-325 Mg) 1 tab Q4H PRN PO PAIN SCALE 1 TO 5; Start 04/27/17 at 10:30 Acetaminophen/ Hydrocodone Bitart (Eola 10-325 Mg) 2 tab Q4H PRN PO PAIN SCALE 6 TO 10 Last administered on 04/28/17 01:15; Start 04/27/17 at 10:30 Morphine Sulfate (Morphine Inj) 2 mg Q2H PRN IV PUSH PAIN SCALE 1 TO 6; Start 04/27/17 at 10:30 Morphine Sulfate (Morphine Inj) 4 mg Q2H PRN IV PUSH PAIN SCALE 7 TO 10 Last administered on 04/28/17 06:30; Start 04/27/17 at 10:30 Acetaminophen (Tylenol) 650 mg Q4HR PRN PO TEMPERATURE > 100.0 F; Start at 10:30 Lorazepam (Ativan Inj) 2 mg STK-MED ONCE .ROUTE ; Start 04/27/17 at 10:39; Stop 04/27/17 at 10:40; Status DC Lorazepam (Ativan Inj) 1 mg ONCE ONCE IV Last administered on 04/27/17 10:40 ; Start 04/27/17 at 13:45; Stop 04/27/17 at 13:46; Status DC Chlorhexidine Gluconate (Peridex 0.12% Liq) 15 ml BID@08,20 MT Last administered on 04/30/17 07:50; Start 04/27/17 at 20:00 Aspirin (Aspirin Supp) 300 mg DAILY RECTAL Last administered on 04/30/17 08:17 ; Start 04/27/17 at 16:15 Fentanyl Citrate (fentaNYL INJ) 100 mcg Q1H PRN IV PUSH SEE LABEL COMMENTS Last administered on 04/28/17 08:02; Start 04/28/17 at 02:00 Midazolam HCl (Versed Inj) 10 mg STK-MED ONCE .ROUTE Last administered on 06:48; Start 04/28/17 at 06:41; Stop 04/28/17 at 06:42; Status DC Midazolam HCl 10 mg 10 mg NOW ONCE IV PUSH ; Start 04/28/17 at 06:40; Stop at 06:55; Status DC Midazolam HCl 100 ml @ 0 mls/hr TITRATE IV Last administered on 04/30/17 04:43 ; Start 04/28/17 at 07:00 Sodium Chloride/ Syringe / Bag (Sodium Chloride 23.4% Inj/Syringe/ Bag) 60 ml @ 120 mls/hr ONCE ONCE IV Last administered on 04/28/17 08:25; Start 04/28/17 at 08:15; Stop 04/28/17 at 08:44; Status DC Acetaminophen (Ofirmev Inj) 1,000 mg Q6H PRN IV Temp > 101.; Start 04/28/17 at 08:15 Sodium Bicarbonate (Sodium Bicarbonate 8.4% Inj) 100 meq ONCE ONCE IV PUSH Last administered on 04/28/17 09:34; Start 04/28/17 at 08:15; Stop 04/28/17 at 08: 21; Status DC Propofol (Diprivan 200 Mg/20 ml Inj) 200 mg STK-MED ONCE IV ; Start 04/26/17 at 12:00; Stop 04/28/17 at 09:05; Status DC Ondansetron HCl 4 mg 4 mg STK-MED ONCE IV PUSH ; Start 04/26/17 at 12:00; Stop 04/28/17 at 09:05; Status DC Parenteral Electrolytes (Normosol R Inj) 1,000 ml @ As Directed STK-MED ONCE IV ; Start 04/26/17 at 12:00; Stop 04/28/17 at 09:05; Status DC Artificial Tears (Lacrilube Opht Oint) APPLY UNDER BOTH EYELIDS BID EACH EYE Last administered on 04/30/17 08:17; Start 04/28/17 at 21:00 Lorazepam 1 mg 1 mg Q1H PRN IV SEIZURES; Start 04/28/17 at 11:15 Miscellaneous Information ml @ 0 mls/hr UNSCH IV ; Start 04/28/17 at 11:15 Sodium Chloride (NS Flush) 2 ml UNSCH PRN IV FLUSH SEE LABEL COMMENTS Last administered on 04/29/17 08:14; Start 04/28/17 at 11:15 Sodium Chloride (NS Flush) 2 ml UNSCH PRN IV FLUSH IV FLUSH; Start 04/28/17 at 11:15 Meperidine HCl (Demerol Inj) 25 mg Q2H PRN IV PUSH SHIVERING; Start 04/28/17 at 11:15 Artificial Tears 1 applic 1 applic Q4H PRN EACH EYE SEE LABEL COMMENTS Last administered on 04/28/17 19:48; Start 04/28/17 at 11:15 Norepinephrine Bitartrate/Sodium Chloride (Levophed Inj/NS 250 ml Inj) 250 ml @ 0 mls/hr TITRATE IV Last administered on 04/29/17 10:58; Start 04/28/17 at 11:45 ; Stop 04/29/17 at 15:22; Status DC Terbutaline Sulfate (Brethine Inj) 1 mg UNSCH PRN SQ For Extravasation; Start 04/28/17 at 11:45 Propofol 200 mg 200 mg STK-MED ONCE IV ; Start 04/27/17 at 11:58; Stop 04/28/17 at 11:58; Status DC Lactated Ringer's 1,000 ml @ As Directed STK-MED ONCE IV ; Start 04/27/17 at 11 :58; Stop 04/28/17 at 11:58; Status DC Parenteral Electrolytes (Normosol R Inj) 1,000 ml @ As Directed STK-MED ONCE IV ; Start 04/27/17 at 11:58; Stop 04/28/17 at 11:58; Status DC Furosemide 20 mg 20 mg NOW ONCE IV PUSH Last administered on 04/28/17 17:29; Start 04/28/17 at 17:15; Stop 04/28/17 at 17:16; Status DC Potassium Phosphate 30 mmol/ Sodium Chloride 260 ml @ 43.333 mls/ hr NOW ONCE IV Last administered on 04/28/17 21:47; Start 04/28/17 at 21:45; Stop 04/29/17 at 03:44; Status DC Potassium Phosphate/Sodium Chloride (Potassium Phosphate Inj/NS 250 ml Inj) 250 ml @ 62.5 mls/hr ONCE ONCE IV Last administered on 04/29/17 06:45; Start 04/29 at 06:45; Stop 04/29/17 at 10:44; Status DC Furosemide 20 mg 20 mg ONCE ONCE IV PUSH Last administered on 04/29/17 15:32; Start 04/29/17 at 15:30; Stop 04/29/17 at 15:31; Status DC Norepinephrine Bitartrate 16 mg/ Sodium Chloride 250 ml @ 0 mls/hr TITRATE IV Last administered on 04/30/17 08:44; Start 04/29/17 at 15:30 Sodium Bicarbonate/ Sterile Water (Sodium Bicarbonate 8.4% Inj/Sterile Water For Inj) 1,000 ml @ 50 mls/hr Q20H IV Last administered on 04/30/17 12:32; Start 04/29/17 at 18:00 Sodium Bicarbonate (Sodium Bicarbonate 8.4% Inj) 100 meq ONCE ONCE IV PUSH Last administered on 04/29/17 19:03; Start 04/29/17 at 17:45; Stop 04/29/17 at 17: 46; Status DC Furosemide 20 mg 20 mg DAILY IV PUSH Last administered on 04/30/17 08:18; Start 04/30/17 at 06:45 Potassium Phosphate 30 mmol/ Sodium Chloride 250 ml @ 62.5 mls/hr ONCE ONCE IV Last administered on 04/30/17 08:18; Start 04/30/17 at 08:00; Stop 04/30/17 at 11:59; Status DC Potassium Phosphate/Sodium Chloride (Potassium Phosphate Inj/NS 250 ml Inj) 260 ml @ 43.333 mls/ hr UNSCH PRN IV ELECTROLYTE REPLACEMENT; Start 04/30/17 at 09: 00 Family History Father at young age due to heart attack Social History 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 No alcohol abuse No illicit drug use Physical Exam Vital Signs Vital Signs Date Time Temp Pulse Resp B/P Pulse Ox O2 Delivery O2 Flow Rate FiO2 04/26/17 13:30 99 Room Air 04/26/17 13:00 99 Physical Exam The patient is intubated and sedated. Localizes to painful stimuli with right side Cranial Nerves: Pupils equal, round, reactive to light. Eyes appear conjugated. There was no nystagmus, no papilledema. Face musculature appeared symmetrical at rest. Face sensation, olfaction, visual oquendo, and hearing cannot be adequately assessed due to her neurological condition. The patient has a corneal reflex. She has a gag reflex. The sternocleidomastoid and trapezius are symmetrical. Cervical Spine: Her neck is soft, supple Motor: muscle tone and bulk are normal on the right side. She moves purposefully right upper and lower extremities, no movement on the left Reflexes: Deep tendon reflexes are 1+ and symmetrical in the biceps, triceps, and brachioradialis, bilaterally, in the upper extremities. In the lower extremities, the patellar and ankles are 1+, bilaterally. There is a right plantar flexion response left Babinsky. There is no clonus Sensory: On examination there is response to painful stimuli, localizing with right upper and lower extremities. Cerebellar: Examination cannot be adequately assessed due to the patient's neurological condition. Laboratory Laboratory Tests Test 04/26/17 04/26/17 13:05 13:33 White Blood Count 9.8 Red Blood Count 4.22 Hemoglobin 13.2 Hematocrit 38.7 Mean Corpuscular Volume 91.8 Mean Corpuscular Hemoglobin 31.3 Mean Corpuscular Hemoglobin 34.0 Concent Red Cell Distribution Width 11.9 Platelet Count 364 Mean Platelet Volume 8.0 Neutrophils (%) (Auto) 60.4 Lymphocytes (%) (Auto) 26.9 Monocytes (%) (Auto) 9.7 Eosinophils (%) (Auto) 2.7 Basophils (%) (Auto) 0.3 Neutrophils # (Auto) 6.0 Lymphocytes # (Auto) 2.6 Monocytes # (Auto) 0.9 Eosinophils # (Auto) 0.3 Basophils # (Auto) 0.0 CBC Comment DIFF FINAL Differential Comment Prothrombin Time 9.8 Prothromb Time International 0.9 Ratio Activated Partial 25.8 Thromboplast Time Fibrinogen 337 Sodium Level 138 Potassium Level 3.4 Chloride Level 106 Carbon Dioxide Level 20.8 Anion Gap 11 Blood Urea Nitrogen 10 Creatinine 0.70 Estimat Glomerular Filtration 91 Rate Random Glucose 105 Calcium Level 8.5 Total Creatine Kinase 238 Creatine Kinase MB 1.6 Creatine Kinase MB % 0.7 Troponin I LESS THAN 0.02 Triglycerides Level 76 Cholesterol Level 194 LDL Cholesterol 81 HDL Cholesterol 97.6 Cholesterol/HDL Ratio 1.98 Human Chorionic Gonadotropin, LESS THAN 1 Quant Blood Type A POSITIVE Antibody Screen NEGATIVE Blood Bank Comment Urine Collection Type CATH Urine Color STRAW Urine Turbidity CLEAR Urine pH 6.0 Urine Specific Gilbert 1.005 Urine Protein NEG Urine Glucose (UA) NEG Urine Ketones NEG Urine Occult Blood NEG Urine Nitrite NEG Urine Bilirubin NEG Urine Leukocyte Esterase NEG Urine RBC 0-3 Urine Opiates Screen NEG Urine Barbiturates Screen NEG Urine Amphetamines Screen NEG Urine Benzodiazepines Screen NEG Urine Cocaine Screen NEG Urine Cannabinoids Screen NEG Result Diagram: 04/26/17 1305 04/26/17 1305 Imaging Last Impressions Neck CTA 04/26/17 1316 Signed Impressions: Service Date/Time: Wednesday, April 26, 2017 13:39 - CONCLUSION: 1. Standard 3 vessel arch anatomy. 2. Widely patent carotid arteries. 3. Dominant left vertebral artery. Vertebral arteries are patent bilaterally. 4. 5 mm right thyroid nodule. This can be further evaluated with ultrasound on an outpatient basis. Cyrus Orozco MD Head CTA 04/26/176 Signed Impressions: Service Date/Time: Wednesday, April 26, 2017 13:39 - CONCLUSION: 1. Occlusion of the right M1 segment. Grossly intact mendoza-white matter differentiation with gross ASPECT score of 10/10. 2. Incidental finding of 5 mm right thyroid nodule. This can be further evaluated with ultrasound on an outpatient basis. Cyrus Orozco MD Head CT 04/26/17 0000 Signed Impressions: Service Date/Time: Wednesday, April 26, 2017 12:51 - CONCLUSION: Normal examination for a patient of this age. Jerry Torres MD Chest X-Ray 04/26/17 0000 Signed Impressions: Service Date/Time: Wednesday, April 26, 2017 14:01 - CONCLUSION: No acute cardiopulmonary disease radiographically. Cyrus Orozco MD Attending Statement Continue neuro checks in a serial fashion. A follow-up CT of the head will be obtained upon completion of angiography. Recommend MRI of the brain in the morning If her condition worsens of if she develops midline shift, a surgical decompression will be performed Respiratory. Full mechanical ventilation in assist control mode of mechanical ventilation, pulmonary toilette, nasotracheal suction, and breathing treatments with nebulizers. Groing bleeding. Going to the operative room for repair by dr Chandler PT and OT eval Nutrition. NPO Renal. monitor closely urine output, BUN and creatinine Endocrine. Monitor serial Acu checks and SSI for tight control ID monitor for signs of infection Protonix for stress ulcer prophylaxis Jerome infante and SCD's for DVT prophylaxis Garry Nathan MD April 26, 2017 17:57
[2017-04-26] MEDS ORDERED: HEPARIN SODIUM - SQ 10,000 UNITS/ML VIAL OTHER ONE (18:47)
[2017-04-26] MEDS: PROPOFOL 1000 MG/100 ML IV SCH (19:00)
[2017-04-26 19:19] LABS: AUTOMATED NEUTROPHIL # 13.1 TH/MM3 (1.8-7.7); BASOPHIL % 0.1 % (0.0-2.0); EOSINOPHIL % 0.1 % (0.0-4.0); HEMO FLAGS DIFF FINAL; LYMPH % 4.3 % (9.0-44.0); LYMPHOCYTE # 0.6 TH/MM3 (1.0-4.8); MEAN CELL VOLUME 92.7 FL (80.0-100.0); MEAN CORPUSCULAR HEMOGLOBIN 31.3 PG (27.0-34.0); MEAN CORPUSCULAR HGB CONC 33.7 % (32.0-36.0); MONO % 3.2 % (0.0-8.0); NEUT % 92.3 % (16.0-70.0); PLATELET COUNT 259 TH/MM3 (150-450); RED BLOOD COUNT 3.45 MIL/MM3 (4.00-5.30); RED CELL DISTRIBUTION WIDTH 12.7 % (11.6-17.2); WHITE BLOOD COUNT 14.2 TH/MM3 (4.0-11.0)
[2017-04-26 20:00] VITALS: O2SAT 100
[2017-04-26] MEDS ORDERED: IODIXANOL 320 MG/ML 50 ML VIAL (for RAD SPEC) I-ARTERIAL ONE (20:00)
[2017-04-26] MEDS ORDERED: HEPARIN-D5W INJ 250 ML IV SCH (20:00)
[2017-04-26] MEDS: INSULIN NovoLIN REGULAR SUPPLEMENTAL SCALE SQ SCH (21:00)
[2017-04-26] MEDS: DOCUSATE SODIUM 50 MG/SENNA 8.6 MG TAB PO SCH (21:00)
[2017-04-26] MEDS ORDERED: MIDAZOLAM 100 MG/ML INJ 100 ML IV SCH (21:45)
[2017-04-26] MEDS: fentaNYL DRIP 250 ML IV SCH (21:51)
[2017-04-26 22:10] VITALS: O2SAT 100
[2017-04-26 23:48] LABS: HEMATOCRIT 28.8 % (35.0-46.0); MEAN CELL VOLUME 91.7 FL (80.0-100.0); MEAN CORPUSCULAR HGB CONC 33.8 % (32.0-36.0); PLATELET COUNT 240 TH/MM3 (150-450); RED BLOOD COUNT 3.14 MIL/MM3 (4.00-5.30); RED CELL DISTRIBUTION WIDTH 12.5 % (11.6-17.2); REVIEW FLAG FINAL; WHITE BLOOD COUNT 15.6 TH/MM3 (4.0-11.0)
[2017-04-27] VITALS (19 sets, daily range): BP systolic 129–153; BP diastolic 64–75; PULSE 48–72; RESP 12–20; TEMP 98.9–101.1; O2SAT 99–100
[2017-04-27 00:16] LABS: APTT (PATIENT) 54.4 SEC (24.3-30.1); PROTHROMBIN TIME - PATIENT 11.1 SEC (9.8-11.6)
[2017-04-27] MEDS: SODIUM CHLOR 0.9% 1000 ML INJ 1,000 ML IV SCH (02:05)
[2017-04-27] MEDS: INSULIN NovoLIN REGULAR SUPPLEMENTAL SCALE SQ SCH ×5 (03:00→20:40)
[2017-04-27] MEDS: CHLORHEXIDINE GLUCONATE 2 % 1 PACK (2 CLOTHS) TOP SCH (04:00)
[2017-04-27 05:33] LABS: HEMATOCRIT 27.9 % (35.0-46.0); MEAN CELL VOLUME 92.6 FL (80.0-100.0); MEAN CORPUSCULAR HEMOGLOBIN 30.9 PG (27.0-34.0); MEAN CORPUSCULAR HGB CONC 33.4 % (32.0-36.0); PLATELET COUNT 235 TH/MM3 (150-450); RED BLOOD COUNT 3.01 MIL/MM3 (4.00-5.30); RED CELL DISTRIBUTION WIDTH 12.5 % (11.6-17.2); REVIEW FLAG FINAL
[2017-04-27 06:00] LABS: APTT (PATIENT) 46.5 SEC (24.3-30.1)
[2017-04-27] MEDS: PROPOFOL 1000 MG/100 ML IV SCH ×4 (06:02→23:11)
[2017-04-27 06:04] LABS: BICARBONATE 23.5 MEQ/L (21.0-32.0); POTASSIUM 3.4 MEQ/L (3.5-5.1)
[2017-04-27 06:36] LABS: CALCIUM-PROTEIN CORRECTED 7.3 MG/DL (8.5-10.1)
--- NOTE | 2017-04-27 06:58 | MP ---
cc: CARLOS TURNER MD DATE OF SURGERY 04/26/2017 PREOPERATIVE DIAGNOSIS Acute MCA stroke status post embolectomy laceration of the right common femoral artery. POSTOPERATIVE DIAGNOSIS Acute MCA stroke status post embolectomy laceration of the right common femoral artery. OPERATIVE PROCEDURE Exploration and repair of the right femoral artery. SURGEON Carlos Turner MD ANESTHESIA General ESTIMATED BLOOD LOSS 50 cc INDICATIONS FOR PROCEDURE This pleasant 42-year-old lady suffered a right MCA stroke and went to the organic lab worker for transfemoral embolectomy and removal of the MCA clots and on completion of the procedure, the Perclose device failed creating, of course, a non-controlled opening in the femoral artery. The patient remains anticoagulated and hence the surgical procedure. PROCEDURE The patient was prepped and draped in the usual fashion and the right groin incision is made, deepened down to the level of the right common femoral artery. The first vessel is isolated above the level of the puncture while finger pressure is held on the vessel. A Vesseloop was placed around there and then distally the second Vesseloop was placed very carefully and then profunda clamps placed proximally and distally. The patient was fully heparinized. There is a small opening measure about 4 mm in the middle of the vessel. This one is closed with three interrupted 6-0 Prolene and then clamps are released. There is a bounding pulse in the vessel. The patient tolerated this part of the procedure well. The area was irrigated with saline. The incision closed in layers with 2-0 Vicryl and 4-0 subcuticular Monocryl. Carlos REESE/PB /7:49 PM /6:55 AM
[2017-04-27] MEDS ORDERED: MANNITOL INJ 50 ML ONE ×2 (06:59→07:25)
[2017-04-27] MEDS ORDERED: fentaNYL CITRATE 250 MCG/5 ML AMP ONE ×2 (07:16→07:18)
[2017-04-27] MEDS: MICROFIBRILLAR COLLAGEN HEMOSTAT 70 X 35 MM BANDAGE ONE ×2 (07:24→09:58)
[2017-04-27] MEDS: THROMBIN (TOPICAL) 5,000 UNIT VIAL ONE ×2 (07:24→09:59)
[2017-04-27] MEDS: VANCOMYCIN HCL 1000 MG VIAL ONE ×2 (07:24→08:21)
[2017-04-27] MEDS: GELFOAM SIZE 100 ONE ×2 (07:24→09:57)
[2017-04-27] MEDS ORDERED: ceFAZolin 2 GM PREMIX 50 ML ONE (07:24)
[2017-04-27] MEDS: BACITRACIN TOP OINT 15 GM TUBE ONE ×2 (07:25→09:57)
[2017-04-27] MEDS ORDERED: SODIUM CHLOR 0.9% 250 ML INJ 250 ML ONE (07:25)
[2017-04-27] MEDS ORDERED: FUROSEMIDE 40 MG/4 ML VIAL ONE (07:25)
[2017-04-27] MEDS: GENTAMICIN SULFATE 80 MG/2 ML VIAL ONE ×2 (07:25→09:58)
[2017-04-27] MEDS: levETIRAcetam 500 MG/5 ML VIAL IV ONE ×2 (07:25→09:10)
[2017-04-27] MEDS: 3% SALINE INJ 500 ML IV SCH ×3 (07:45→23:12)
[2017-04-27] MEDS ORDERED: MANNITOL 12.5 GM/50 ML VIAL IV ONE (07:45)
--- NOTE | 2017-04-27 08:26 | RADRPT ---
EXAM DATE/TIME: 04/27/2017 03:02 [facility] COMPARISON: No previous studies available for comparison. INDICATIONS : CVA. MEDICAL HISTORY : None. SURGICAL HISTORY : None. ENCOUNTER: Subsequent ACUITY: 1 day PAIN SCORE: Nonresponsive. LOCATION: cranial TECHNIQUE: Multiplanar, multisequence MRI of the brain was performed without contrast. FINDINGS: There is pronounced edema now present throughout the right hemisphere with some sparing of the fronta l region. The insular cortex and basal ganglia are involved. There is prominent compression of the ri ght lateral ventricle and about 1 cm of [id number] subfalcine shift. There is mild effacement of t he basal cisterns. CONCLUSION: Evolving right hemispheric stroke with prominent edema Juancho Jarvis MD on April 27, 2017 at 4:09 Board Certified Radiologist. This report was verified electronically.
--- NOTE | 2017-04-27 08:29 | RADRPT ---
EXAM DATE/TIME: 04/27/2017 07:10 [facility] COMPARISON: CHEST SINGLE AP, April 26, 2017, 14:01. INDICATIONS : Central line placement. MEDICAL HISTORY : Unobtainable. SURGICAL HISTORY : Unobtainable. ENCOUNTER: Subsequent ACUITY: 1 day PAIN SCORE: Non-responsive. LOCATION: Bilateral chest FINDINGS: ET tube, nasogastric tube are in good position. Central line is in the right atrium. Lungs are adriel r. Heart and pulmonary vascularity are normal. CONCLUSION: 1. Central line in the right atrium. 2. Lungs are clear. Phuc Younger MD FACR on April 27, 2017 at 7:49 Board Certified Radiologist. This report was verified electronically.
[2017-04-27] MEDS ORDERED: LIDOCAINE 1%/EPINEPHrine 1:200,000 PF SOLN 10 ML VIAL INFIL ONE (08:50)
[2017-04-27 08:58] LABS: BLOOD GAS BASE EXCESS -3.2 mmol/L (-2-2); BLOOD GAS CARBOXYHEMOGLOBIN 1.5 % (0-4); BLOOD GAS HCO3 20 mmol/L (22-26); BLOOD GAS METHEMOGLOBIN 1.6 % (0-2); BLOOD GAS O2 HGB SATURATION 97 % (90-100); BLOOD GAS OXYGEN CONTENT 13.9 Vol % (12.0-20.0); BLOOD GAS PCO2 29 mmHg (38-42); BLOOD GAS PO2 282 mmHg (61-120); BLOOD GAS TOTAL HGB 9.7 G/DL (12.0-16.0); TEMP CORR TO 98.6
[2017-04-27 08:59] LABS: CRITICAL VALUE NO; DRAW SITE ART LINE; FIO2 50 %; OXYGEN DEVICE VENTILATOR; STAT YES; VENT SETTINGS SEE OR
[2017-04-27] MEDS: DOCUSATE SODIUM 50 MG/SENNA 8.6 MG TAB PO SCH ×2 (09:00→20:39)
[2017-04-27] MEDS: PANTOPRAZOLE SODIUM 40 MG VIAL IV SCH (10:15)
[2017-04-27] MEDS ORDERED: SODIUM CHLORIDE 0.9% FLUSH 5 ML FLUSH IVF PRN (10:30)
[2017-04-27] MEDS ORDERED: MORPHINE SULFATE 4 MG/ML INJ IV PUSH PRN (10:30)
[2017-04-27] MEDS ORDERED: ONDANSETRON HCL 4 MG/2 ML VIAL IV PRN (10:30)
[2017-04-27] MEDS ORDERED: ACETAMINOPHEN 325 MG TAB PO PRN (10:30)
[2017-04-27] MEDS ORDERED: ACETAMINOPHEN/HYDROcodone 325 MG/10 MG TAB PO PRN ×2 (10:30)
[2017-04-27] MEDS ORDERED: LORazepam 2 MG/ML VIAL ONE (10:39)
[2017-04-27 11:17] LABS: BLOOD GAS BASE EXCESS -1.8 mmol/L (-2-2); BLOOD GAS CARBOXYHEMOGLOBIN 1.2 % (0-4); BLOOD GAS HCO3 21 mmol/L (22-26); BLOOD GAS O2 HGB SATURATION 97 % (90-100); BLOOD GAS OXYGEN CONTENT 12.6 Vol % (12.0-20.0); BLOOD GAS PCO2 28 mmHg (38-42); BLOOD GAS PO2 200 mmHg (61-120); BLOOD GAS TOTAL HGB 8.9 G/DL (12.0-16.0); CRITICAL VALUE NO; OXYGEN DEVICE VENTILATOR; TEMP CORR TO 98.6
[2017-04-27 11:18] LABS: DRAW SITE ART LINE; FIO2 40 %; STAT NO; VENT SETTINGS PRVC20 500IT.8PEEP5
[2017-04-27] MEDS ORDERED: PROPOFOL 200 MG/20 ML AMP IV ONE (11:58)
[2017-04-27] MEDS ORDERED: NORMOSOL R INJ 1,000 ML IV ONE (11:58)
[2017-04-27] MEDS ORDERED: LACTATED RINGER'S 1000 ML INJ 1,000 ML IV ONE (11:58)
[2017-04-27] MEDS: CALCIUM GLUCONATE 10% 1 GM/10 ML VIAL IV PRN (13:32)
[2017-04-27] MEDS: ceFAZolin 2 GM PREMIX 50 ML IV SCH ×2 (13:32→20:39)
[2017-04-27] MEDS: NS + KCL 20 MEQ INJ 1,000 ML IV SCH ×3 (13:32→23:11)
[2017-04-27] MEDS ORDERED: LORazepam 2 MG/ML VIAL IV ONE (13:45)
--- NOTE | 2017-04-27 14:14 | EC ---
Study Study Date:04/27/2017 STUDY CONCLUSIONS SUMMARY LEFT VENTRICLE: The cavity size was normal. Wall thickness was normal. Systolic function was normal. The estimated ejection fraction was 55%, in the range of 55% to 60%. Wall motion was normal; there were no regional wall motion abnormalities. Impressions: No cardiac source of emboli was indentified. Negative bubble study x2 consider MATY if clinically indicated If LV function is below 40, please consider prescribing an ACEI or ARB or document rationale for non-use. PROCEDURE DATA STUDY STATUS: Elective. Procedure: Transthoracic echocardiography. Image quality was good. Scanning was performed from the parasternal, apical, and subcostal acoustic windows. Study completion: The patient tolerated the procedure well. Transthoracic echocardiography. M-mode, complete 2D, complete spectral Doppler, and color Doppler. Patient status: Inpatient. CARDIAC ANATOMY LEFT VENTRICLE: The cavity size was normal. Wall thickness was normal. Systolic function was normal. The estimated ejection fraction was 55%, in the range of 55% to 60%. Wall motion was normal; there were no regional wall motion abnormalities. AORTIC VALVE: Trileaflet; normal thickness leaflets. Doppler: Transvalvular velocity was within the normal range. There was no stenosis. No regurgitation. Peak gradient: 16mm Hg (S). AORTA: Aortic root: The aortic root was normal in size. MITRAL VALVE: Structurally normal valve. Doppler: Transvalvular velocity was within the normal range. There was no evidence for stenosis. No regurgitation. Mean gradient: 2mm Hg (D). Peak gradient: 7mm Hg (D). LEFT ATRIUM: The atrium was normal in size. ATRIAL SEPTUM: Negative bubble study consider MATY if clinically indicated RIGHT VENTRICLE: The cavity size was normal. Wall thickness was normal. PULMONIC VALVE: Doppler: Transvalvular velocity was within the normal range. There was no evidence for stenosis. No regurgitation. TRICUSPID VALVE: Structurally normal valve. Doppler: Transvalvular velocity was within the normal range. No regurgitation. PULMONARY ARTERY: The main pulmonary artery was normal-sized. Systolic pressure was within the normal range. RIGHT ATRIUM: The atrium was normal in size. PERICARDIUM: There was no pericardial effusion. SYSTEMIC VEINS: Inferior vena cava: The vessel was normal in size. BASIC MEASUREMENTS ADULT Normal Left ventricle LV internal dimension, ED, chordal level, *40.8 mm 43-52 PLAX LV internal dimension, ES, chordal level, 26.7 mm 23-38 PLAX Fractional shortening, chordal level, PLAX 35 % >29 LV posterior wall thickness, ED 6.23 mm IVS/LVPW ratio, ED 1.13 <1.3 Ventricular septum Septal thickness, ED 7.05 mm Aortic valve Leaflet separation 20 mm 15-26 Left atrium Anterior-posterior dimension 28 mm Right ventricle RV internal dimension, ED, PLAX 19.6 mm 19-38 BASIC MEASUREMENTS ADULT Normal Aortic valve Leaflet separation 20 mm 15-26 Aorta Root diameter, ED 28 mm 20-37 DOPPLER MEASUREMENTS ADULT Normal Aortic valve Peak velocity, S 201 cm/s VTI, S 36.9 cm Peak gradient, S 16 mm Hg Mitral valve Peak E-wave velocity 98.1 cm/s Peak A-wave velocity 81.4 cm/s Mean velocity, D 64.9 cm/s Mean gradient, D 2 mm Hg Peak gradient, D 7 mm Hg Peak E/A ratio 1.2 Tricuspid valve Regurgitant peak velocity 191 cm/s Peak RV-RA gradient, S 15 mm Hg Maximal regurgitant velocity 191 cm/s LEGEND: Mean values are shown as u=mean value. Asterisk (*) adam values outside specified normal range. Prepared and signed by Milton Montalvo [id number]
--- NOTE | 2017-04-27 14:17 | HHI.CCPN ---
Subjective Remarks/Hospital Course This is a 42yF with unremarkable past medical history who presents to the [facility] emergency department with new-onset left-sided weakness and slurred speech. She is an employee of [employer] who had a witnessed onset of her symptoms at 12:45pm. In the [facility] ED she was immediately taken for non-contrasted head CT which was negative for acute hemorrhage. She was given iv tpa which was instituted 36 minutes after arrival, per my conversation with the regional education coordinator. She was then emergently transferred to [facility]. CT angiography demonstrated acute right m1 cut-off. She was taken by [facility] and arrived directly to the IR suite, where I met and evaluated the patient. Due to the acute nature of her illness and her dysarthria, a complete history is not obtainable. She does endorse right-sided headache, although denied any chest pain, shortness of breath. 04/27: Back from OR after right craniectomy for decompression s/p left MCA CVA. Heavily sedated. Some new history from a co-worker indicates that patient started taking oral contraceptive 2 months ago. 04/28: Continued problems with cerebral edema as expected. Push osmolality a little higher and restrict fluid. Tolerate pH mildly acidotic to avoid cerebral vascular constriction. Objective Vital Signs Date Time Temp Pulse Resp B/P Pulse Ox O2 Delivery O2 Flow Rate FiO2 04/27/17 13:20 100 40 04/27/17 06:00 62 04/26/17 19:00 Mechanical Ventilator Intake and Output 04/26/17 04/26/17 04/26/17 07:59 15:59 23:59 Intake Total 1680 ml Output Total 1050 ml Balance 630 ml Result Diagram: 04/27/1751904/27/17519 Other Results Laboratory Tests Test 04/26/17 04/27/17 04/27/17 17:35 08:45 10:56 Blood Gas Puncture Site RT RADIAL ART LINE ART LINE Blood Gas Patient Temperature 98.6 98.6 98.6 Blood Gas HCO3 17 mmol/L 20 mmol/L 21 mmol/L (22-26) (22-26) (22-26) Blood Gas Base Excess -7.7 mmol/L -3.2 mmol/L -1.8 mmol/L (-2-2) (-2-2) (-2-2) Blood Gas Oxygen Saturation 96 % (90-100) 97 % (90-100) 97 % (90-100) Arterial Blood pH 7.32 7.45 7.50 (7.380-7.420) (7.380-7.420) (7.380-7.420) Arterial Blood Partial 35 mmHg (38-42) 29 mmHg (38-42) 28 mmHg (38-42) Pressure CO2 Arterial Blood Partial 181 mmHG 282 mmHg 200 mmHg Pressure O2 (61-120) (61-120) (61-120) Arterial Blood Oxygen Content 14.3 Vol % 13.9 Vol % 12.6 Vol % (12.0-20.0) (12.0-20.0) (12.0-20.0) Arterial Blood 2.3 % (0-4) 1.5 % (0-4) 1.2 % (0-4) Carboxyhemoglobin Arterial Blood Methemoglobin 0.7 % (0-2) 1.6 % (0-2) 1.0 % (0-2) Blood Gas Hemoglobin 10.3 G/DL 9.7 G/DL 8.9 G/DL (12.0-16.0) (12.0-16.0) (12.0-16.0) Oxygen Delivery Device VENTILATOR VENTILATOR VENTILATOR Blood Gas Ventilator Setting AC/VT500/R14/P5 SEE OR PRVC20 [id number] Blood Gas Inspired Oxygen 100 % 50 % 40 % Imaging Last Impressions Neck CTA 04/26/176 Signed Impressions: Service Date/Time: Wednesday, April 26, 2017 13:39 - CONCLUSION: 1. Standard 3 vessel arch anatomy. 2. Widely patent carotid arteries. 3. Dominant left vertebral artery. Vertebral arteries are patent bilaterally. 4. 5 mm right thyroid nodule. This can be further evaluated with ultrasound on an outpatient basis. Cyrus Orozco MD Head CTA 04/26/17 1316 Signed Impressions: Service Date/Time: Wednesday, April 26, 2017 13:39 - CONCLUSION: 1. Occlusion of the right M1 segment. Grossly intact mendoza-white matter differentiation with gross ASPECT score of 10/10. 2. Incidental finding of 5 mm right thyroid nodule. This can be further evaluated with ultrasound on an outpatient basis. Cyrus Orozco MD Head CT 04/26/17 0000 Signed Impressions: Service Date/Time: Wednesday, April 26, 2017 12:51 - CONCLUSION: Normal examination for a patient of this age. Jerry Torres MD Chest X-Ray 04/26/17 0000 Signed Impressions: Service Date/Time: Wednesday, April 26, 2017 14:01 - CONCLUSION: No acute cardiopulmonary disease radiographically. Cyrus Orozco MD Objective Remarks gen: middle-aged female, heavily sedated for brain protection. heent: orally intubated. neck: trachea midline. chest: clear, no adventitious sounds, equal chest rise. not tachypneic cv: normal rate, regular rhythm. sinus by tele. no JVD. abd: soft, nontender, nondistended. no guarding. extr: no peripheral edema. distal pulses 2+ neuro: RASS -5; Heavily sedated. Left pupil 2 mm, reacts. Right pupil 3 mm, reacts slowly. Otherwise unresponsive as expected. A/P Assessment and Plan Assessment: 42yF with acute right M1 MCA CVA now s/p systemic TPA and currently in interventional radiology for mechanical thrombectomy. She is very critically ill at this time. Active Problems: Acute right M1 MCA CVA s/p systemic TPA and endovascular thrombectomy Dysarthria Left-sided hemiparesis Left-sided facial droop Plan: -- 3% saline -- SBP goals per my discussion with interventionalist will be 140 - 160 -- phenylephrine and nicardipine will be used prn to achieve these goals. -- Serial osmo, Na -- interval head CT in 24h -- nursing bedside swallow eval before advancing diet -- holding off on ASA or anticoagulation given TPA. -- SCDs -- pepcid iv for gi prophylaxis -- EtCO2 30 - 35 --Consider core cooling to 94 - 96 range --Further concentrate osmo. Overall impression: Large distribution right MCA CVA with shift requiring decompressive craniectomy in an attempt to rescue the dominant hemisphere. She is critically ill with an unstable neurological process and considerable cerebral edema. She may benefit from mild hypotehrmia for 2-3 days - will discuss with NS. Critical Care 60 mins Anthony Garcia MD April 27, 2017 14:16
[2017-04-27] MEDS: PHENYLEPHRINE INJ 40 MG in SODIUM CHLORID 0.9% 500 ML INJ 500 ML IV SCH ×2 (15:24→20:39)
--- NOTE | 2017-04-27 15:32 | RADRPT ---
EXAM DATE/TIME: 04/26/2017 14:57 [facility] COMPARISON: No previous studies available for comparison. INDICATIONS : MEDICAL HISTORY : Patient is a Stroke alert. No history obtainable SURGICAL HISTORY : No history obtainable ENCOUNTER: Initial ACUITY: 1 day PAIN SCORE: 3/10 LOCATION: Headache FLUORO TIME: 39 minutes IMAGE SERIES: 33 ACCESS SITE: Right Femoral artery CONTRAST: 165 cc Visipaque (iodixanol) MEDICATION(S): 1.) 10 mg Verapamil IV Proceduralists: Drs. Orozco and Renuka DEVICE(S): 1.) Right middle cerebral artery cello 9 fr/920mm mechanical thrombectomy 2.) Right midddle cerebral artery solitaire 6 -30 mechanical thrombectomy 3.) Right middle cerebral artery solitaire 4-40 mechanical thrombectomy 4.) Right middle cerebral artery ZAHEER 68 mechanical thrombectomy 5.) Right middle cerebral artery ZAHEER 60 mechanical thrombectomy TIMELINE: Interventional team called: Interventional team arrived: Interventional team ready: 1425 pm Patient arrival: 1431 pm Groin puncture: 1441 pm Recanalization: Anesthesia and pain control was provided by the Anesthesia department. PROCEDURE : 1. Ultrasound-guided puncture of the access site. 2. Conscious sedation with continuous EKG and Oximetry monitoring converted to general anesthesia du e to patient's inability to cooperate with exam 3. Selective catheter placement in the right internal carotid artery with string like jogger feeding 4. Multiple mechanical thrombectomy attempts utilizing a combination of 6 x 30 mm and 4 x 40 mm Shae tare retrieval devices utilizing Solumbra technique and 9 [place] occlusion balloon in the internal ca rotid artery (flow cessatiom) 5. multiple mechanical thrombectomy attempts utilizing a combination of Zaheer 68 and Zaheer 60 suction cat heters The risks, benefits and alternatives to the procedure were explained and verbal and written consent w as obtained. The site was prepped in sterile fashion. Full sterile technique was used, including ca p, mask, sterile gloves and gown and a large sterile sheet. Hand hygiene and 2% chlorhexidine and/or betadine/alcohol prep was utilized per protocol for cutaneous antisepsis. The skin and subcutaneous tissues were infiltrated with local anesthetic solution. Outside examination of the right common femoral artery demonstrated the artery to be patent. A single image was obtained and placed Micropuncture needle was advanced into the right common femoral artery under direct ultrasound alfa lugo. This was subsequently exchanged for a short 3-4 dilator over a 0.018 wire. Dilator was exchanged for a 9 [place]an sheath. Next, the right common carotid artery was selected with a MARIBELL 2 catheter which was subsequently advanced into the internal carotid artery. Cerebral angiography was then performed i n AP projection. This confirmed occlusion of the proximal right M1 segment with significant tortuosit y of the cavernous carotid. Next, catheter was exchanged for a 9 [place] Cello balloon catheter which was placed in the distal cervical segment. A Eurekaman microcatheter and Fathom 16 wire were then succ essfully advanced through the occluded proximal right M1 segment and an hand injection angiography wa s performed confirming patency of M2 segments. 6 x 30 mm Solitare stent retrieval device was then dep loyed. Angiography performed through the cello demonstrated patency of the M1 segment with the Solita re deployed. Following 5 minute all times the Solitare was retrieved followup angiography demonstrate d no significant interval improvement. Therefore, Solitare device was again redeployed and following 5 and well time retrieved. Followup angiography demonstrated patency of the proximal M1 segment with flow through the temporal M2 branches. There is continued significant occlusion involving the distal M1 branch at the bifurcation. Therefore, the 6 x 30 mm Solitare device was again redeployed and fol lowing 5 and well time retrieved. Followup angiography demonstrated occlusion of the MCA origin. Mult iple attempts to advance the Zaheer 68 suction catheter were unsuccessful. The 6 x 30 mm Solitare devic e was again redeployed and following 5 and well time retrieved. Followup angiography demonstrated min imal echographic improvement with continued occlusion of the proximal M1 segment. Therefore, the Zaheer 68 catheter was exchanged for an Zaheer 60 catheter which successfully advanced into the proximal M1 seg ment and following 2 separate suction thrombectomy attempts flow was not established. Zaheer 60 catheter was therefore exchanged for the Zaheer 68 catheter which was successfully advanced into the proximal M1 branch. Following 5 minutes dwell time, the catheter was retrieved and angiography was again perform ed. This demonstrated jew of flow to the M2 branches. There was continued occlusion of the t emporal branch with residual adherent thrombus distally at the MCA bifurcation. Delayed, approximatel y 30-60 seconds, angiography demonstrated rethrombosis of the middle cerebral arteries with thrombus now extending to the distal ICA. Repeat thrombectomy attempt was minimally successful restoring flow to the very proximal M1 segment. Subsequent thrombectomy attempt resulted in jew of flow with subtle non-flow limiting adherent thrombus in the distal M1 segment. Patient was fully anticoagulate d at this time to maintain patency. Wires and catheters were then removed. Closure attempts with an 8 [place] Angio-Seal was unsuccessful. Therefore, hemostasis was obtained with manual compression. The decision was made to surgically close the femoral puncture site due to need for full anticoagulation, 9 [place]an access, and patient's inability to cooperate with instructions. Patient was transferred to the OR suite for surgical femoral closure. CONCLUSION: 1. Proximal right M1 occlusion consistent with findings on CT exam. 2. Numerous mechanical thrombectomy attempts due to challenging thrombus extraction and rethrombosis following thrombectomy. In total, ten separate thrombectomy attempts were performed yielding TICI 2b recanalization. Cyrus Orozco MD on April 27, 2017 at 14:43 Board Certified Radiologist. This report was verified electronically.
--- NOTE | 2017-04-27 16:19 | OTSOAPIP ---
TIME SESSION COMPLETED: 1115 TREATMENT TIME: 0 MINS. CHART REVIEWED. RECEIVED ORDERS FOR OT CONSULT. PT S/P SURGERY THIS AM FOR CRANIOTOMY. WILL FOLLOW UP NEXT DAY. Therapist: ALFONZO IRWIN OT/L Signature on file
--- NOTE | 2017-04-27 16:22 | HHI.PR ---
Review/Management Diagnosis right MCA stroke, s/p iv tpa and thrombectomy of right M1 thrombus. Plan recheck CT in am start asa. Diagnosis/Plan: Subjective Subjective Comments s/p craniotomy for increasing edema associated with right MCA stroke with mass effect. Active Medications Current Medications Medications (Trade) Dose Ordered Sig/Elida Route Start Time Stop Time Status Last Admin Magnesium Oxide 800 mg 800 mg UNSCH PRN PO 04/26/17 14:15 Magnesium Sulfate 4 gm/Sodium Chloride 100 ml @ 50 mls/hr UNSCH PRN IV 04/26/17 14:15 Magnesium Sulfate 2 gm/Sodium Chloride 100 ml @ 50 mls/hr UNSCH PRN IV 04/26/17 14:15 Potassium Chloride 100 ml @ 50 mls/hr Q2H PRN IV 04/26/17 14:15 Potassium Chloride 100 ml @ 50 mls/hr Q2H PRN IV 04/26/17 14:15 04/27/17 13:31 Potassium Chloride 100 ml @ 50 mls/hr Q2H PRN IV 04/26/17 14:15 (KCl 40 Meq Premix Inj) 100 ml @ 25 mls/hr UNSCH PRN IV 04/26/17 14:15 (K-Phos) 2,000 mg Q4H PRN PO 04/26/17 14:15 Potassium Phosphate 2000 mg 2,000 mg UNSCH PRN PO/TUBE 04/26/17 14:15 (Sodium Phosphate Inj/NS 250 ml Inj) 250 ml @ 42 mls/hr UNSCH PRN IV 04/26/17 14:15 (D50w (Vial) Inj) 25 ml UNSCH PRN IV PUSH 04/26/17 14:15 (Protonix Inj) 40 mg DAILY IV 04/27/17 09:00 04/27/17 10:15 (Zofran Inj) 4 mg Q6H PRN IV 04/26/17 14:15 Miscellaneous Information 1 Q361D XX 04/26/17 14:15 (Chlorhexidine 2% Cloth) 3 pack Taper DAILY@04 TOP 04/27/17 04:00 04/23/18 03:59 (Chlorhexidine 2% Cloth) 3 pack UNSCH PRN TOP 04/26/17 14:15 Senna/Docusate Sodium 1 tab 1 tab BID PO 04/26/17 21:00 Phenylephrine HCl 40 mg/Sodium Chloride 504 ml @ 0 mls/hr TITRATE IV 04/26/17 16:30 04/27/17 15:24 (Cardene Inj/NS 250 ml Inj) 260 ml @ 0 mls/hr TITRATE IV 04/26/17 15:30 (Trandate Inj) 20 mg Q15M PRN IV PUSH 04/26/17 15:30 Hydralazine HCl 10 mg 10 mg Q30M PRN IV PUSH 04/26/17 15:30 Fentanyl Citrate 250 ml @ 0 mls/hr TITRATE IV 04/26/17 21:45 04/26/17 21:51 Midazolam HCl 100 ml @ 0 mls/hr TITRATE IV 04/26/17 21:45 Propofol 100 ml @ 0 mls/hr TITRATE IV 04/26/17 22:00 04/27/17 10:15 Sodium Chloride 500 ml @ 30 mls/hr Q16H IV 04/27/17 07:45 04/27/17 10:15 (NS + KCl 20 Meq Inj) 1,000 ml @ 100 mls/hr Q10H IV 04/27/17 10:16 04/27/17 13:32 (NS Flush) 2 ml UNSCH PRN IVF 04/27/17 10:30 IV Flush 2 ml 2 ml BID IVF 04/27/17 21:00 Cefazolin Sodium/ Dextrose 50 ml @ 100 mls/hr Q8H IV 04/27/17 14:00 04/28/17 06:29 04/27/17 13:32 (Keppra Inj/NS Inj) 105 ml @ 400 mls/hr Q12H IV 04/27/17 21:00 (Dulcolax Supp) 10 mg DAILY PRN RECTAL 04/27/17 10:30 (Colace) 100 mg BID PO 04/27/17 21:00 Calcium Gluconate 1 gm 1 gm UNSCH PRN IV 04/27/17 10:30 04/27/17 13:32 Potassium Chloride 100 ml @ 50 mls/hr UNSCH PRN IV 04/27/17 10:30 (Magnesium Sulfate Inj/NS Inj) 108 ml @ 108 mls/hr UNSCH PRN IV 04/27/17 10:30 ([place] 10-325 Mg) 1 tab Q4H PRN PO 04/27/17 10:30 ([place] 10-325 Mg) 2 tab Q4H PRN PO 04/27/17 10:30 (Morphine Inj) 2 mg Q2H PRN IV PUSH 04/27/17 10:30 (Morphine Inj) 4 mg Q2H PRN IV PUSH 04/27/17 10:30 (Tylenol) 650 mg Q4H PRN PO 04/27/17 10:30 (Peridex 0.12% Liq) 15 ml BID@08,20 MT 04/27/17 20:00 (Aspirin Supp) 300 mg DAILY RECTAL 04/27/17 16:15 UNV Allergies Allergies Coded Allergies Shellfish (Verified Allergy, Unknown, 04/26/17) Exam I&O / VS 04/26/17 04/26/17 04/27/17 15:00 23:00 07:00 Intake Total 1680 ml Output Total 1050 ml Balance 630 ml Intake IV Total 680 ml Other 1000 ml Output Urine Total 900 ml Gastric Drainage Total 150 ml # Bowel Movements 0 Vital Signs Date Time Temp Pulse Resp B/P Pulse Ox O2 Delivery O2 Flow Rate FiO2 04/27/17 13:20 100 40 04/27/17 10:48 100 40 04/27/17 06:00 62 04/27/17 04:00 62 04/27/17 02:40 100 100 04/27/17 02:00 64 04/27/17 01:41 100 50 04/27/17 00:00 62 04/26/17 22:10 100 100 04/26/17 20:00 100 50 04/26/17 19:00 100 Mechanical Ventilator 80 Exam Comments sedated pupils 2 mm symmetric and reactive no spontaneous limb movement and no withdrawal Objective Radiology Results MRI brain reviewed Micro and Labs Laboratory Tests Test 04/26/17 04/26/17 04/26/17 04/26/17 17:35 18:04 18:38 20:20 Blood Gas Puncture Site RT RADIAL Blood Gas Patient Temperature 98.6 Blood Gas HCO3 17 Blood Gas Base Excess -7.7 Blood Gas Oxygen Saturation 96 Arterial Blood pH 7.32 Arterial Blood Partial 35 Pressure CO2 Arterial Blood Partial 181 Pressure O2 Arterial Blood Oxygen Content 14.3 Arterial Blood 2.3 Carboxyhemoglobin Arterial Blood Methemoglobin 0.7 Blood Gas Hemoglobin 10.3 Oxygen Delivery Device VENTILATOR Blood Gas Ventilator Setting AC/VT500/R14/P5 Blood Gas Inspired Oxygen 100 Blood Type A POSITIVE A POSITIVE Crossmatch Leukocyte-Reduced Red Blood Cells Blood Bank Comment White Blood Count 14.2 Red Blood Count 3.45 Hemoglobin 10.8 Hematocrit 32.0 Mean Corpuscular Volume 92.7 Mean Corpuscular Hemoglobin 31.3 Mean Corpuscular Hemoglobin 33.7 Concent Red Cell Distribution Width 12.7 Platelet Count 259 Mean Platelet Volume 8.4 Neutrophils (%) (Auto) 92.3 Lymphocytes (%) (Auto) 4.3 Monocytes (%) (Auto) 3.2 Eosinophils (%) (Auto) 0.1 Basophils (%) (Auto) 0.1 Neutrophils # (Auto) 13.1 Lymphocytes # (Auto) 0.6 Monocytes # (Auto) 0.5 Eosinophils # (Auto) 0.0 Basophils # (Auto) 0.0 CBC Comment DIFF FINAL Differential Comment Nasal Screen MRSA (PCR) MRSA NOT DETECTED Test 04/26/17 04/27/17 04/27/17 04/27/17 23:30 05:20 08:45 10:56 White Blood Count 15.6 13.0 Red Blood Count 3.14 3.01 Hemoglobin 9.7 9.3 Hematocrit 28.8 27.9 Mean Corpuscular Volume 91.7 92.6 Mean Corpuscular Hemoglobin 31.0 30.9 Mean Corpuscular Hemoglobin 33.8 33.4 Concent Red Cell Distribution Width 12.5 12.5 Platelet Count 240 235 Mean Platelet Volume 8.2 8.1 Prothrombin Time 11.1 Prothromb Time International 1.0 Ratio Activated Partial 54.4 46.5 Thromboplast Time Sodium Level 138 Potassium Level 3.4 Chloride Level 105 Carbon Dioxide Level 23.5 Anion Gap 10 Blood Urea Nitrogen 4 Creatinine 0.50 Estimat Glomerular Filtration 134 Rate Random Glucose 120 Calcium Level 6.6 Protein Corrected Calcium 7.3 Total Protein 5.7 Blood Gas Puncture Site ART LINE ART LINE Blood Gas Patient Temperature 98.6 98.6 Blood Gas HCO3 20 21 Blood Gas Base Excess -3.2 -1.8 Blood Gas Oxygen Saturation 97 97 Arterial Blood pH 7.45 7.50 Arterial Blood Partial 29 28 Pressure CO2 Arterial Blood Partial 282 200 Pressure O2 Arterial Blood Oxygen Content 13.9 12.6 Arterial Blood 1.5 1.2 Carboxyhemoglobin Arterial Blood Methemoglobin 1.6 1.0 Blood Gas Hemoglobin 9.7 8.9 Oxygen Delivery Device VENTILATOR VENTILATOR Blood Gas Ventilator Setting SEE OR PRVC20 500IT.8PEEP5 Blood Gas Inspired Oxygen 50 40 Santana Gomez PhD April 27, 2017 16:22
--- NOTE | 2017-04-27 16:40 | PD.CAR.PN ---
CVT Progress Note Subjective/Hospital Course: Patient underwent yesterday repair of the right femoral artery laceration. Incisions clean and dry Good distal flow in both legs I reviewed the remainder of the today's notes and discussed her care The prognosis is unfortunately very poor in the current clinical and pathology setting. Objective: Vital Signs Date Time Temp Pulse Resp B/P Pulse Ox O2 Delivery O2 Flow Rate FiO2 04/27/17 13:20 100 40 04/27/17 10:48 100 40 04/27/17 06:00 62 04/27/17 04:00 62 04/27/17 02:40 100 100 04/27/17 02:00 64 04/27/17 01:41 100 50 04/27/17 00:00 62 04/26/17 22:10 100 100 04/26/17 20:00 100 50 04/26/17 19:00 100 Mechanical Ventilator 80 Labs: Laboratory Tests Test 04/27/17 04/27/17 04/27/17 05:20 08:45 10:56 White Blood Count 13.0 TH/MM3 (4.0-11.0) Red Blood Count 3.01 MIL/MM3 (4.00-5.30) Hemoglobin 9.3 GM/DL (11.6-15.3) Hematocrit 27.9 % (35.0-46.0) Mean Corpuscular Volume 92.6 FL (80.0-100.0) Mean Corpuscular Hemoglobin 30.9 PG (27.0-34.0) Mean Corpuscular Hemoglobin 33.4 % Concent (32.0-36.0) Red Cell Distribution Width 12.5 % (11.6-17.2) Platelet Count 235 TH/MM3 (150-450) Mean Platelet Volume 8.1 FL (7.0-11.0) Activated Partial 46.5 SEC Thromboplast Time (24.3-30.1) Sodium Level 138 MEQ/L (136-145) Potassium Level 3.4 MEQ/L (3.5-5.1) Chloride Level 105 MEQ/L (98-107) Carbon Dioxide Level 23.5 MEQ/L (21.0-32.0) Anion Gap 10 MEQ/L (5-15) Blood Urea Nitrogen 4 MG/DL (7-18) Creatinine 0.50 MG/DL (0.50-1.00) Estimat Glomerular Filtration 134 ML/MIN Rate (>89) Random Glucose 120 MG/DL (74-106) Calcium Level 6.6 MG/DL (8.5-10.1) Protein Corrected Calcium 7.3 MG/DL (8.5-10.1) Total Protein 5.7 GM/DL (6.4-8.2) Blood Gas Puncture Site ART LINE ART LINE Blood Gas Patient Temperature 98.6 98.6 Blood Gas HCO3 20 mmol/L 21 mmol/L (22-26) (22-26) Blood Gas Base Excess -3.2 mmol/L -1.8 mmol/L (-2-2) (-2-2) Blood Gas Oxygen Saturation 97 % (90-100) 97 % (90-100) Arterial Blood pH 7.45 7.50 (7.380-7.420) (7.380-7.420) Arterial Blood Partial 29 mmHg (38-42) 28 mmHg (38-42) Pressure CO2 Arterial Blood Partial 282 mmHg 200 mmHg Pressure O2 (61-120) (61-120) Arterial Blood Oxygen Content 13.9 Vol % 12.6 Vol % (12.0-20.0) (12.0-20.0) Arterial Blood 1.5 % (0-4) 1.2 % (0-4) Carboxyhemoglobin Arterial Blood Methemoglobin 1.6 % (0-2) 1.0 % (0-2) Blood Gas Hemoglobin 9.7 G/DL 8.9 G/DL (12.0-16.0) (12.0-16.0) Oxygen Delivery Device VENTILATOR VENTILATOR Blood Gas Ventilator Setting SEE OR PRVC20 500IT.8PEEP5 Blood Gas Inspired Oxygen 50 % 40 % Result Diagram: 04/27/1751904/27/17519 Carlos Edwards MD April 27, 2017 16:40
[2017-04-27] MEDS: fentaNYL DRIP 250 ML IV SCH ×2 (17:32→23:11)
[2017-04-27] MEDS: ASPIRIN 300 MG SUPP RECTAL SCH (17:52)
[2017-04-27 18:08] LABS: MAGNESIUM 1.8 MG/DL (1.5-2.5)
--- NOTE | 2017-04-27 18:10 | PD.OP ---
Operative Report Date of Surgery: April 27, 2017 Preoperative Diagnosis: Malignant right MCA infarction Postoperative Diagnosis: Malignant right MCA infarction Procedure: Right frontotemporal parietal decompressive craniectomy and cranioplasty Anesthesia: general Surgeon: Garry Nathan Easter Bunny(s): Janee Olivares Operation and Findings: INDICATIONS FOR THE PROCEDURE Ms Toledo is a 42-year-old female who suffered a very large right MCA territory infarction. Her condition was progressively deteriorating and she developed anisocoria with a right pupil dilated and fixed. A follow up MRI scan of the brain showed severe mass effect and midline shift. A surgical decompression was indicated in an attempt to save the patient's life. I have discussed the [id number] details of the procedure, its indications, alternatives, risks and potential complications with the patient's mother including but not limited to the risk of infection, hemorrhage, paralysis, stroke, heart attack, even vegetative state or even the possibility of . She understood All her questions were answered. No guarantees were given. She voiced requesting the procedure and provided informed consent. DETAILS OF THE SURGICAL PROCEDURE The patient was endotracheally intubated and mechanically ventilated. A Head catheter, bilateral ADDIE hose and sequential compression devices were placed and kept throughout the procedure. The patient was positioned supine on a 3080 table over a soft mattress. The head was placed on a horseshoe quantitative equity head over a horse shoe quantitative equity head. All pressure points were carefully padded with egg crate mattress. The eyes were tapped shut after ointment was applied by the anesthesiologist to prevent corneal abrasion. The frontotemporal parietal area was shaved, prepped and draped in the usual sterile fashion. A standard inverted question leslie incision was outlined on the right scalp and infiltrated with 1% lidocaine with epinephrine. The skin incision was made with a #10 blade down to the level of the periosteum in the frontoparietal region and to the temporalis fascia in the temporal region. Selin clips were applied to the scalp. Using a Bovie, the temporalis fascia and muscle were incised and a subperiosteal dissection was performed reflecting the scalp flap anteriorly. The scalp was covered with a moist sponge and held in position using fish hooks. The Mandyas Gerson was brought to the field and a bur hole was made in the temporal region using the craniotome attachment. Then, using the footplate attachment, a large frontotemporoparietal craniotomy flap was elevated. The dura was bulging, very tense with severe pressure. The dura was opened with a 15 blade and Metzenbaum scissors. The brain was bulging due to underling edema. The bone flap was packed in sterile conditions and stored in the operative room freezer. Then the incision was irrigated with saline solution. The dural edges were tacked to the bone. The Dura was losely reconstructed with Duragen. A 7 millimeter Pavan-Ariza drain was then left in the subgaleal space and externalized through a separate stab incision. The incision was then closed in layers. 0 Vicryl in interrupted sutures were used to close the temporalis fascia. The galea was closed with interrupted 3-0 Vicryl. Della were applied to the skin. The drain was secured with a 3-0 nylon. At the end of the procedure, the sponge, needle and instrument counts were all correct. Estimated blood loss was less than 100 cc. No blood transfusion was given. No intraoperative complications occurred. The patient received prophylactic antibiotics. The patient was then transferred to the recovery room in stable condition. COMPLICATIONS None ESTIMATED BLOOD LOSS Less than 100 cc. Garry Nathan MD April 27, 2017 18:10 Garry Nathan MD April 27, 2017 18:10
--- NOTE | 2017-04-27 18:15 | PD.OP ---
Operative Report Date of Surgery: April 27, 2017 Preoperative Diagnosis: Right malignant MCA infarction Postoperative Diagnosis: Right malignant MCA infarction Procedure: Left frontal bur hole with placement of an intracranial pressure monitor. Anesthesia: general Surgeon: Garry Nathan [employer] Management Professor(s): KWASI Operation and Findings: INDICATIONS FOR THE PROCEDURE Ms Toledo is a 42-year-old female who suffered a very large right MCA territory infarction. Her condition was progressively deteriorating and she developed anisocoria with a right pupil dilated and fixed. A follow up MRI scan of the brain showed severe mass effect and midline shift. Placement of ICP monitor was indicated as recommended by the [employer] [place] [employer] I have discussed the [id number] details of the procedure, its indications, alternatives, risks and potential complications with the patient's mother. All questions were answered. No guarantees were given. She voiced requesting the procedure and provided informed consent. DETAILS OF THE SURGICAL PROCEDURE The left frontal area was shaved, prepped and draped in the usual sterile fashion. An entry point was selected behind the hairline, approximately 30 mm lateral to the midline. The incision was infiltrated with 1% lidocaine with epinephrine 1:100,000 dilution. A small incision was made with a 15 blade down to the level of the periosteum. Using a twist drill a floresita hole was made. The dura was opened with a blunt stylet, and a Jalyn bolt was secured to the bone. A fiberoptic transducer was calibrated according to the wet process operator's instructions, and advanced into the parenchyma of the frontal lobe through the bolt. An intracranial pressure of 7 mmHg was achieved with a good waveform. A Betadine sterile dressing was applied. The patient tolerated the procedure well. There were no intraoperative complications. Blood loss was minimal. Garry Nathan MD April 27, 2017 18:15
[2017-04-27 18:34] LABS: BLOOD GAS BASE EXCESS -3.6 mmol/L (-2-2); BLOOD GAS CARBOXYHEMOGLOBIN 1.1 % (0-4); BLOOD GAS HCO3 20 mmol/L (22-26); BLOOD GAS O2 HGB SATURATION 97 % (90-100); BLOOD GAS OXYGEN CONTENT 16.1 Vol % (12.0-20.0); BLOOD GAS PCO2 29 mmHg (38-42); BLOOD GAS PO2 207 mmHg (61-120); BLOOD GAS TOTAL HGB 11.4 G/DL (12.0-16.0); CRITICAL VALUE NO; DRAW SITE ART LINE; FIO2 40 %; OXYGEN DEVICE VENTILATOR; TEMP CORR TO 98.6
[2017-04-27 18:35] LABS: STAT YES; ULNAR PULSE PRESENT
[2017-04-27] MEDS: levETIRAcetam INJ 500 MG in SODIUM CHLORIDE 0.9% INJ 100 ML IV SCH (20:39)
[2017-04-27] MEDS: CHLORHEXIDINE 0.12% (ORAL KIT) 15 ML CUP MT SCH (20:39)
[2017-04-27] MEDS: DOCUSATE SODIUM 100 MG CAP PO SCH (20:40)
[2017-04-27] MEDS: SODIUM CHLORIDE 0.9% FLUSH 5 ML FLUSH IVF SCH (20:40)
[2017-04-27] MEDS: SODIUM PHOSPHATE INJ 30 MMOL in SODIUM CHLOR 0.9% 250 ML INJ 240 ML IV PRN (20:41)
[2017-04-28] VITALS (20 sets, daily range): BP systolic 148–153; BP diastolic 71–80; PULSE 48–66; RESP 12–14; TEMP 93.6–98.8; O2SAT 100
[2017-04-28] MEDS: MORPHINE SULFATE 4 MG/ML INJ IV PUSH PRN ×2 (01:30→06:30)
[2017-04-28] MEDS: INSULIN NovoLIN REGULAR SUPPLEMENTAL SCALE SQ SCH ×5 (03:00→20:41)
[2017-04-28] MEDS: CHLORHEXIDINE GLUCONATE 2 % 1 PACK (2 CLOTHS) TOP SCH (04:00)
[2017-04-28 04:38] LABS: AUTOMATED NEUTROPHIL # 13.1 TH/MM3 (1.8-7.7); BASOPHIL % 0.2 % (0.0-2.0); EOSINOPHIL # 0.1 TH/MM3 (0-0.4); EOSINOPHIL % 0.4 % (0.0-4.0); HEMATOCRIT 25.3 % (35.0-46.0); HEMO FLAGS DIFF FINAL; LYMPH % 8.9 % (9.0-44.0); LYMPHOCYTE # 1.5 TH/MM3 (1.0-4.8); MEAN CELL VOLUME 94.9 FL (80.0-100.0); MEAN CORPUSCULAR HEMOGLOBIN 31.3 PG (27.0-34.0); MONO % 11.4 % (0.0-8.0); NEUT % 79.1 % (16.0-70.0); PLATELET COUNT 173 TH/MM3 (150-450); RED BLOOD COUNT 2.67 MIL/MM3 (4.00-5.30); RED CELL DISTRIBUTION WIDTH 13.1 % (11.6-17.2); WHITE BLOOD COUNT 16.5 TH/MM3 (4.0-11.0)
[2017-04-28 04:50] LABS: BLOOD GAS BASE EXCESS -7.2 mmol/L (-2-2); BLOOD GAS CARBOXYHEMOGLOBIN 0.9 % (0-4); BLOOD GAS HCO3 18 mmol/L (22-26); BLOOD GAS METHEMOGLOBIN 0.9 % (0-2); BLOOD GAS O2 HGB SATURATION 97 % (90-100); BLOOD GAS OXYGEN CONTENT 13.3 Vol % (12.0-20.0); BLOOD GAS PCO2 34 mmHg (38-42); BLOOD GAS PO2 159 mmHg (61-120); BLOOD GAS TOTAL HGB 9.5 G/DL (12.0-16.0); CRITICAL VALUE NO; OXYGEN DEVICE VENT; TEMP CORR TO 98.6
[2017-04-28 04:51] LABS: DRAW SITE ALINE; FIO2 40 %; STAT NO; ULNAR PULSE PRESENT; VENT SETTINGS SEE COMMENTS
[2017-04-28 05:04] LABS: MAGNESIUM 1.8 MG/DL (1.5-2.5)
[2017-04-28] MEDS: PROPOFOL 1000 MG/100 ML IV SCH ×5 (05:12→22:12)
[2017-04-28] MEDS: ceFAZolin 2 GM PREMIX 50 ML IV SCH (05:12)
[2017-04-28 05:16] LABS: POTASSIUM 3.6 MEQ/L (3.5-5.1)
[2017-04-28] MEDS: NS + KCL 20 MEQ INJ 1,000 ML IV SCH ×2 (05:24→08:02)
[2017-04-28] MEDS ORDERED: MIDAZOLAM HCL 5 MG/ML VIAL (1 ML) IV PUSH ONE (06:40)
[2017-04-28] MEDS ORDERED: MIDAZOLAM HCL 5 MG/ML VIAL (1 ML) ONE (06:41)
[2017-04-28] MEDS: levETIRAcetam INJ 500 MG in SODIUM CHLORIDE 0.9% INJ 100 ML IV SCH ×2 (08:01→19:48)
[2017-04-28] MEDS: DOCUSATE SODIUM 50 MG/SENNA 8.6 MG TAB PO SCH ×2 (08:02→19:49)
[2017-04-28] MEDS: PANTOPRAZOLE SODIUM 40 MG VIAL IV SCH (08:02)
[2017-04-28] MEDS: DOCUSATE SODIUM 100 MG CAP PO SCH ×2 (08:02→19:48)
[2017-04-28] MEDS ORDERED: SODIUM BICARBONATE 8.4% INJ 50 MEQ/50 ML SYR IV PUSH ONE (08:15)
[2017-04-28] MEDS ORDERED: SODIUM CHLORIDE 23.4% INJ 240 MEQ in SYRINGE/BAG 1 EA IV ONE (08:15)
[2017-04-28] MEDS ORDERED: ACETAMINOPHEN 1000 MG/100 ML VIAL IV PRN (08:15)
[2017-04-28] MEDS ORDERED: PANTOPRAZOLE SODIUM 40 MG VIAL IVP SCH (09:00)
[2017-04-28] MEDS ORDERED: PANTOPRAZOLE SOD 40 MG DELAYED RELEASE TAB PO SCH (09:00)
[2017-04-28] MEDS: ASPIRIN 300 MG SUPP RECTAL SCH (09:20)
[2017-04-28] MEDS: CHLORHEXIDINE 0.12% (ORAL KIT) 15 ML CUP MT SCH ×2 (09:20→19:48)
[2017-04-28] MEDS: SODIUM CHLORIDE 0.9% FLUSH 5 ML FLUSH IVF SCH ×2 (09:20→20:28)
[2017-04-28] MEDS: PHENYLEPHRINE INJ 40 MG in SODIUM CHLORID 0.9% 500 ML INJ 500 ML IV SCH (10:00)
[2017-04-28] MEDS ORDERED: MEPERIDINE HCL 25 MG/ML VIAL IV PUSH PRN (11:15)
[2017-04-28] MEDS ORDERED: LORazepam 2 MG/ML VIAL IV PRN (11:15)
[2017-04-28] MEDS ORDERED: SODIUM CHLORIDE 0.9% FLUSH 10 ML FLUSH IV FLUSH PRN (11:15)
[2017-04-28] MEDS ORDERED: Mix all IV Meds in NS IV SCH (11:15)
[2017-04-28] MEDS ORDERED: TERBUTALINE INJ 1 MG/ML AMP SQ PRN (11:45)
--- NOTE | 2017-04-28 12:07 | PD.PROCEDR ---
Procedure Note Procedure DX: Acute Right Hemispheric Stroke, Cerebral Edema OP: 1. Insertion Quattro Hypothermia Catheter (53799) 2. Insertion Arterial Monitoring Line (50410) Procedure: Time out identification performed. Left groin prepped and draped. Patient placed in steep reverse Trendelenburg position to maintain elevation of head. Using ultrasound guidance the left common femoral artery and vein were individually cannulated and wires advanced. A 2mm skin incision was made at the venous wire insertion site and dilators were passed. The Quattro cooling catheter was passed over the venous wire to 35 cm. The lumens aspirated and flushed. A 20 gauge cannula was then passed over the arterial wire to 12 cm , high pressure tubing connected, and a good waveform observed. Antibiotic patches were applied to both sites at the skin. Sutures placed to secure lines and dressings applied. DP pulse to left leg palpable at the end of the procedure. Anthony Garcia MD Apr 28, 2017 12:07
[2017-04-28] MEDS: NOREPINEPHRINE INJ 4 MG in SODIUM CHLOR 0.9% 250 ML INJ 246 ML IV SCH ×2 (13:13→20:31)
--- NOTE | 2017-04-28 13:37 | HHI.NSPN ---
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 Her MRI showed midline shift and was taken for emergent right decompressive craniectomy 04/27/17 with placement of ICP monitor. 04/28: pt seen this am during rounds: ICPs became elevated last evening and early this morning in the mid 20's. pt started on Versed drip with bolus of 23%. On Mannitol and 3% NS. ICPs now 11-14. Critical care aware will be initiating code cool. Unstable for repeat CT Head this am. (Sakina Israel) Labs, Micro, & Vital Signs Results Date Time Temp Pulse Resp B/P Pulse Ox O2 Delivery O2 Flow Rate FiO2 04/28/17 12:06 100 30 04/28/17 09:22 100 30 04/28/17 07:43 100 30 04/28/17 07:32 100 30 04/28/17 06:00 50 04/28/17 04:00 97.1 48 12 153/72 100 04/28/17 04:00 48 04/28/17 03:39 100 30 04/28/17 02:00 55 04/28/17 01:06 100 30 04/28/17 00:00 54 04/28/17 00:00 98.8 53 14 149/71 100 04/27/17 22:00 53 04/27/17 21:07 100 30 04/27/17 20:00 52 04/27/17 20:00 98.9 52 14 148/64 100 04/27/17 18:41 99 30 04/27/17 18:01 100 40 04/27/17 18:00 48 04/27/17 17:57 100 40 04/27/17 16:00 51 04/27/17 16:00 99.6 51 14 153/75 100 04/27/17 14:00 60 04/28/17 07:00 Intake Total 5144 ml Output Total 1960 ml Balance 3184 ml Constitutional Vital Signs Date Time Temp Pulse Resp B/P Pulse Ox O2 Delivery O2 Flow Rate FiO2 04/28/17 12:06 100 30 04/28/17 09:22 100 30 04/28/17 07:43 100 30 04/28/17 07:32 100 30 04/28/17 06:00 50 04/28/17 04:00 97.1 48 12 153/72 100 04/28/17 04:00 48 04/28/17 03:39 100 30 04/28/17 02:00 55 04/28/17 01:06 100 30 04/28/17 00:00 54 04/28/17 00:00 98.8 53 14 149/71 100 04/27/17 22:00 53 04/27/17 21:07 100 30 04/27/17 20:00 52 04/27/17 20:00 98.9 52 14 148/64 100 04/27/17 18:41 99 30 04/27/17 18:01 100 40 04/27/17 18:00 48 04/27/17 17:57 100 40 04/27/17 16:00 51 04/27/17 16:00 99.6 51 14 153/75 100 04/27/17 14:00 60 04/28/17 07:00 Intake Total 5144 ml Output Total 1960 ml Balance 3184 ml (Sakina Israel) Review of Systems/Exam Exam Ms. Toledo is intubated and currently well sedated on multiple sedatives. Right flap full and tight. ICP currently 14 - 16 Cranial Nerves: Left pupil 2. cannot assess right pupils due to severe eyelid swelling. Motor: No response, very well sedated Bilateral plantar response silent. (Sakina Israel) Medical Decision Making MDM Remarks 42 year old female with large right hemispheric CVA with mass effect and midline shift, s/p right decompressive craniectomy with placement of ICP monitor 04/27/17 (Sakina Israel) Plan Plan Remarks cont keep well sedated cont hyperosmotic tx with Mannitol and 3% NS, critical care mgt - code cool cont serial neuro checks nonchemical dvt prophylaxis due to ICH protonix for stress ulcer proph dw mother and fiance at bedside (Sakina Israel) Attending Statement The exam, history, and the medical decision-making described in the above note were completed with the assistance of the mid-level provider. I reviewed and agree with the findings presented. I attest that I had a [id number] encounter with the patient on the same day, and personally performed and documented my assessment and findings in the medical record. (Garry Nathan MD) Sakina Israel Apr 28, 2017 13:37 Garry Nathan MD Apr 30, 2017 20:16
[2017-04-28] MEDS: fentaNYL DRIP 250 ML IV SCH ×2 (13:58→22:12)
[2017-04-28 14:01] LABS: AUTOMATED NEUTROPHIL # 10.3 TH/MM3 (1.8-7.7); BASOPHIL % 0.1 % (0.0-2.0); EOSINOPHIL # 0.2 TH/MM3 (0-0.4); EOSINOPHIL % 1.3 % (0.0-4.0); HEMATOCRIT 25.1 % (35.0-46.0); HEMO FLAGS DIFF FINAL; LYMPH % 8.7 % (9.0-44.0); LYMPHOCYTE # 1.1 TH/MM3 (1.0-4.8); MEAN CELL VOLUME 95.2 FL (80.0-100.0); MEAN CORPUSCULAR HEMOGLOBIN 30.9 PG (27.0-34.0); MEAN CORPUSCULAR HGB CONC 32.5 % (32.0-36.0); MONO % 10.1 % (0.0-8.0); NEUT % 79.8 % (16.0-70.0); PLATELET COUNT 150 TH/MM3 (150-450); RED BLOOD COUNT 2.63 MIL/MM3 (4.00-5.30); RED CELL DISTRIBUTION WIDTH 13.4 % (11.6-17.2); WHITE BLOOD COUNT 12.9 TH/MM3 (4.0-11.0)
--- NOTE | 2017-04-28 14:01 | PD.CAR.PN ---
CVT Progress Note Subjective/Hospital Course: Patient underwent yesterday repair of the right femoral artery laceration. Incisions clean and dry Good distal flow in both legs I reviewed the remainder of the today's notes and discussed her care The prognosis is unfortunately very poor in the current clinical and pathology setting. 04/28/17 Right groin incisions clean and dry no swelling noted Can stay open to air Nothing to add from my point Objective: Vital Signs Date Time Temp Pulse Resp B/P Pulse Ox O2 Delivery O2 Flow Rate FiO2 04/28/17 12:06 100 30 04/28/17 09:22 100 30 04/28/17 07:43 100 30 04/28/17 07:32 100 30 04/28/17 06:00 50 04/28/17 04:00 97.1 48 12 153/72 100 04/28/17 04:00 48 04/28/17 03:39 100 30 04/28/17 02:00 55 04/28/17 01:06 100 30 04/28/17 00:00 54 04/28/17 00:00 98.8 53 14 149/71 100 04/27/17 22:00 53 04/27/17 21:07 100 30 04/27/17 20:00 52 04/27/17 20:00 98.9 52 14 148/64 100 04/27/17 18:41 99 30 04/27/17 18:01 100 40 04/27/17 18:00 48 04/27/17 17:57 100 40 04/27/17 16:00 51 04/27/17 16:00 99.6 51 14 153/75 100 Labs: Laboratory Tests Test 04/28/17 04/28/17 04/28/17 04:20 04:37 09:50 White Blood Count 16.5 TH/MM3 (4.0-11.0) Red Blood Count 2.67 MIL/MM3 (4.00-5.30) Hemoglobin 8.4 GM/DL (11.6-15.3) Hematocrit 25.3 % (35.0-46.0) Mean Corpuscular Volume 94.9 FL (80.0-100.0) Mean Corpuscular Hemoglobin 31.3 PG (27.0-34.0) Mean Corpuscular Hemoglobin 33.0 % Concent (32.0-36.0) Red Cell Distribution Width 13.1 % (11.6-17.2) Platelet Count 173 TH/MM3 (150-450) Mean Platelet Volume 8.4 FL (7.0-11.0) Neutrophils (%) (Auto) 79.1 % (16.0-70.0) Lymphocytes (%) (Auto) 8.9 % (9.0-44.0) Monocytes (%) (Auto) 11.4 % (0.0-8.0) Eosinophils (%) (Auto) 0.4 % (0.0-4.0) Basophils (%) (Auto) 0.2 % (0.0-2.0) Neutrophils # (Auto) 13.1 TH/MM3 (1.8-7.7) Lymphocytes # (Auto) 1.5 TH/MM3 (1.0-4.8) Monocytes # (Auto) 1.9 TH/MM3 (0-0.9) Eosinophils # (Auto) 0.1 TH/MM3 (0-0.4) Basophils # (Auto) 0.0 TH/MM3 (0-0.2) CBC Comment DIFF FINAL Differential Comment Sodium Level 151 MEQ/L 159 MEQ/L (136-145) (136-145) Potassium Level 3.6 MEQ/L (3.5-5.1) Serum Osmolality 305 MOSM/KG 315 MOSM/KG (275-295) (275-295) Phosphorus Level 2.4 MG/DL (2.5-4.9) Magnesium Level 1.8 MG/DL (1.5-2.5) Blood Gas Puncture Site MELVINA Blood Gas Patient Temperature 98.6 Blood Gas HCO3 18 mmol/L (22-26) Blood Gas Base Excess -7.2 mmol/L (-2-2) Blood Gas Oxygen Saturation 97 % (90-100) Arterial Blood pH 7.33 (7.380-7.420) Arterial Blood Partial 34 mmHg (38-42) Pressure CO2 Arterial Blood Partial 159 mmHg Pressure O2 (61-120) Arterial Blood Oxygen Content 13.3 Vol % (12.0-20.0) Arterial Blood 0.9 % (0-4) Carboxyhemoglobin Arterial Blood Methemoglobin 0.9 % (0-2) Blood Gas Hemoglobin 9.5 G/DL (12.0-16.0) Oxygen Delivery Device VENT Blood Gas Ventilator Setting SEE COMMENTS Blood Gas Inspired Oxygen 40 % Result Diagram: 04/28/17 0420 04/28/17 0950 Carlos Edwards MD Apr 28, 2017 14:01
[2017-04-28 14:23] LABS: CALCIUM-PROTEIN CORRECTED 8.4 MG/DL (8.5-10.1); POTASSIUM 3.5 MEQ/L (3.5-5.1); TOTAL BILIRUBIN ADULT 0.2 MG/DL (0.2-1.0)
[2017-04-28 15:01] LABS: BLOOD GAS BASE EXCESS -7.4 mmol/L (-2-2); BLOOD GAS CARBOXYHEMOGLOBIN 0.9 % (0-4); BLOOD GAS HCO3 18 mmol/L (22-26); BLOOD GAS O2 HGB SATURATION 94 % (90-100); BLOOD GAS OXYGEN CONTENT 11.3 Vol % (12.0-20.0); BLOOD GAS PCO2 41 mmHg (38-42); BLOOD GAS PO2 87 mmHg (61-120); BLOOD GAS TOTAL HGB 8.5 G/DL (12.0-16.0); CRITICAL VALUE YES; OXYGEN DEVICE VENTILATOR; TEMP CORR TO 98.6
[2017-04-28 15:03] LABS: DRAW SITE ART LINE; FIO2 30 %; NUMBER OF ARTERIAL PUNCTURES 0; STAT NO; ULNAR PULSE PRESENT; VENT SETTINGS PRVC/AC
[2017-04-28] MEDS: MIDAZOLAM 100 MG/NS 100 ML DRIP Premix IV SCH (16:19)
[2017-04-28] MEDS: 3% SALINE INJ 500 ML IV SCH (16:20)
[2017-04-28] MEDS ORDERED: FUROSEMIDE 20 MG/2 ML VIAL IV PUSH ONE (17:15)
--- NOTE | 2017-04-28 18:41 | HHI.PR ---
Review/Management Diagnosis right MCA stroke, s/p iv tpa and thrombectomy of right M1 thrombus. Diagnosis/Plan: Subjective Subjective Comments No acute events reported Active Medications Current Medications Medications (Trade) Dose Ordered Sig/Elida Route Start Time Stop Time Status Last Admin Magnesium Oxide 800 mg 800 mg UNSCH PRN PO 04/26/17 14:15 Magnesium Sulfate 4 gm/Sodium Chloride 100 ml @ 50 mls/hr UNSCH PRN IV 04/26/17 14:15 Magnesium Sulfate 2 gm/Sodium Chloride 100 ml @ 50 mls/hr UNSCH PRN IV 04/26/17 14:15 Potassium Chloride 100 ml @ 50 mls/hr Q2H PRN IV 04/26/17 14:15 Potassium Chloride 100 ml @ 50 mls/hr Q2H PRN IV 04/26/17 14:15 04/27/17 13:31 Potassium Chloride 100 ml @ 50 mls/hr Q2H PRN IV 04/26/17 14:15 (KCl 40 Meq Premix Inj) 100 ml @ 25 mls/hr UNSCH PRN IV 04/26/17 14:15 (K-Phos) 2,000 mg Q4H PRN PO 04/26/17 14:15 04/28/17 05:25 Potassium Phosphate 2000 mg 2,000 mg UNSCH PRN PO/TUBE 04/26/17 14:15 (Sodium Phosphate Inj/NS 250 ml Inj) 250 ml @ 42 mls/hr UNSCH PRN IV 04/26/17 14:15 04/27/17 20:41 (D50w (Vial) Inj) 25 ml UNSCH PRN IV PUSH 04/26/17 14:15 (Protonix Inj) 40 mg DAILY IV 04/27/17 09:00 04/28/17 08:02 (Zofran Inj) 4 mg Q6H PRN IV 04/26/17 14:15 Miscellaneous Information 1 Q361D XX 04/26/17 14:15 (Chlorhexidine 2% Cloth) 3 pack Taper DAILY@04 TOP 04/27/17 04:00 04/23/18 03:59 04/28/17 04:00 (Chlorhexidine 2% Cloth) 3 pack UNSCH PRN TOP 04/26/17 14:15 Senna/Docusate Sodium 1 tab 1 tab BID PO 04/26/17 21:00 04/28/17 08:02 Phenylephrine HCl 40 mg/Sodium Chloride 504 ml @ 0 mls/hr TITRATE IV 04/26/17 16:30 04/28/17 10:00 (Cardene Inj/NS 250 ml Inj) 260 ml @ 0 mls/hr TITRATE IV 04/26/17 15:30 (Trandate Inj) 20 mg Q15M PRN IV PUSH 04/26/17 15:30 Hydralazine HCl 10 mg 10 mg Q30M PRN IV PUSH 04/26/17 15:30 Fentanyl Citrate 250 ml @ 0 mls/hr TITRATE IV 04/26/17 21:45 04/28/17 13:58 Propofol 100 ml @ 0 mls/hr TITRATE IV 04/26/17 22:00 04/28/17 16:19 (Sodium Chloride 3% Inj) 500 ml @ 10 mls/hr Q16H IV 04/27/17 07:45 04/28/17 16:20 (NS Flush) 2 ml UNSCH PRN IVF 04/27/17 10:30 IV Flush 2 ml 2 ml BID IVF 04/27/17 21:00 04/28/17 09:20 (Keppra Inj/NS Inj) 105 ml @ 400 mls/hr Q12H IV 04/27/17 21:00 04/28/17 08:01 (Dulcolax Supp) 10 mg DAILY PRN RECTAL 04/27/17 10:30 (Colace) 100 mg BID PO 04/27/17 21:00 04/28/17 08:02 Calcium Gluconate 1 gm 1 gm UNSCH PRN IV 04/27/17 10:30 04/27/17 13:32 Potassium Chloride 100 ml @ 50 mls/hr UNSCH PRN IV 04/27/17 10:30 (Magnesium Sulfate Inj/NS Inj) 108 ml @ 108 mls/hr UNSCH PRN IV 04/27/17 10:30 ([place] 10-325 Mg) 1 tab Q4H PRN PO 04/27/17 10:30 ([place] 10-325 Mg) 2 tab Q4H PRN PO 04/27/17 10:30 04/28/17 01:15 (Morphine Inj) 2 mg Q2H PRN IV PUSH 04/27/17 10:30 (Morphine Inj) 4 mg Q2H PRN IV PUSH 04/27/17 10:30 04/28/17 06:30 (Tylenol) 650 mg Q4HR PRN PO 04/27/17 10:30 (Peridex 0.12% Liq) 15 ml BID@08,20 MT 04/27/17 20:00 04/28/17 09:20 (Aspirin Supp) 300 mg DAILY RECTAL 04/27/17 16:15 04/28/17 09:20 Fentanyl Citrate 100 mcg 100 mcg Q1H PRN IV PUSH 04/28/17 02:00 04/28/17 08:02 (Versed Inj) 100 ml @ 0 mls/hr TITRATE IV 04/28/17 07:00 04/28/17 16:19 (Ofirmev Inj) 1,000 mg Q6H PRN IV 04/28/17 08:15 (Lacrilube Opht Oint) APPLY UNDER BOTH EYELIDS BID EACH EYE 04/28/17 21:00 Lorazepam 1 mg 1 mg Q1H PRN IV 04/28/17 11:15 Miscellaneous Information ml @ 0 mls/hr UNSCH IV 04/28/17 11:15 (NS Flush) 2 ml UNSCH PRN IV FLUSH 04/28/17 11:15 (NS Flush) 2 ml UNSCH PRN IV FLUSH 04/28/17 11:15 (Demerol Inj) 25 mg Q2H PRN IV PUSH 04/28/17 11:15 Artificial Tears 1 applic 1 applic Q4H PRN EACH EYE 04/28/17 11:15 (Levophed Inj/NS 250 ml Inj) 250 ml @ 0 mls/hr TITRATE IV 04/28/17 11:45 04/28/17 13:13 (Brethine Inj) 1 mg UNSCH PRN SQ 04/28/17 11:45 Allergies Allergies Coded Allergies Shellfish (Verified Allergy, Unknown, 04/26/17) Exam I&O / VS 04/27/17 04/27/17 04/28/17 15:00 23:00 07:00 Intake Total 752 ml 2374 ml 2018 ml Output Total 1235 ml 375 ml 350 ml Balance -483 ml 1999 ml 1668 ml Intake Oral 0 ml IV Total 752 ml 2374 ml 2018 ml Output Urine Total 1000 ml 325 ml 350 ml Gastric Drainage Total 200 ml Drainage Total 35 ml 50 ml # Bowel Movements 0 Vital Signs Date Time Temp Pulse Resp B/P Pulse Ox O2 Delivery O2 Flow Rate FiO2 04/28/17 18:00 66 04/28/17 16:15 100 30 04/28/17 16:00 30 04/28/17 16:00 55 04/28/17 16:00 93.6 55 14 152/75 100 04/28/17 14:00 54 04/28/17 12:06 100 30 04/28/17 12:00 93.7 52 12 148/80 100 04/28/17 12:00 30 04/28/17 12:00 52 04/28/17 10:00 50 04/28/17 09:22 100 30 04/28/17 08:00 30 04/28/17 08:00 97.6 57 12 151/77 100 04/28/17 08:00 57 04/28/17 07:43 100 30 04/28/17 07:32 100 30 04/28/17 06:00 50 04/28/17 04:00 97.1 48 12 153/72 100 04/28/17 04:00 48 04/28/17 03:39 100 30 04/28/17 02:00 55 04/28/17 01:06 100 30 04/28/17 00:00 54 04/28/17 00:00 98.8 53 14 149/71 100 04/27/17 22:00 53 04/27/17 21:07 100 30 04/27/17 20:00 52 04/27/17 20:00 98.9 52 14 148/64 100 04/27/17 18:41 99 30 Exam Comments sedated pupils 2mm and reactive left. Unable to visualize pupil on right no spontaneous limb movement and no withdrawal Objective Micro and Labs Laboratory Tests Test 04/27/17 04/28/17 04/28/17 04/28/17 22:44 04:20 04:37 09:50 Sodium Level 148 151 159 Serum Osmolality 299 305 315 White Blood Count 16.5 Red Blood Count 2.67 Hemoglobin 8.4 Hematocrit 25.3 Mean Corpuscular Volume 94.9 Mean Corpuscular Hemoglobin 31.3 Mean Corpuscular Hemoglobin 33.0 Concent Red Cell Distribution Width 13.1 Platelet Count 173 Mean Platelet Volume 8.4 Neutrophils (%) (Auto) 79.1 Lymphocytes (%) (Auto) 8.9 Monocytes (%) (Auto) 11.4 Eosinophils (%) (Auto) 0.4 Basophils (%) (Auto) 0.2 Neutrophils # (Auto) 13.1 Lymphocytes # (Auto) 1.5 Monocytes # (Auto) 1.9 Eosinophils # (Auto) 0.1 Basophils # (Auto) 0.0 CBC Comment DIFF FINAL Differential Comment Potassium Level 3.6 Phosphorus Level 2.4 Magnesium Level 1.8 Blood Gas Puncture Site MELVINA Blood Gas Patient Temperature 98.6 Blood Gas HCO3 18 Blood Gas Base Excess -7.2 Blood Gas Oxygen Saturation 97 Arterial Blood pH 7.33 Arterial Blood Partial 34 Pressure CO2 Arterial Blood Partial 159 Pressure O2 Arterial Blood Oxygen Content 13.3 Arterial Blood 0.9 Carboxyhemoglobin Arterial Blood Methemoglobin 0.9 Blood Gas Hemoglobin 9.5 Oxygen Delivery Device VENT Blood Gas Ventilator Setting SEE COMMENTS Blood Gas Inspired Oxygen 40 Test 04/28/17 04/28/17 13:45 14:44 White Blood Count 12.9 Red Blood Count 2.63 Hemoglobin 8.1 Hematocrit 25.1 Mean Corpuscular Volume 95.2 Mean Corpuscular Hemoglobin 30.9 Mean Corpuscular Hemoglobin 32.5 Concent Red Cell Distribution Width 13.4 Platelet Count 150 Mean Platelet Volume 8.4 Neutrophils (%) (Auto) 79.8 Lymphocytes (%) (Auto) 8.7 Monocytes (%) (Auto) 10.1 Eosinophils (%) (Auto) 1.3 Basophils (%) (Auto) 0.1 Neutrophils # (Auto) 10.3 Lymphocytes # (Auto) 1.1 Monocytes # (Auto) 1.3 Eosinophils # (Auto) 0.2 Basophils # (Auto) 0.0 CBC Comment DIFF FINAL Differential Comment Sodium Level 158 Potassium Level 3.5 Chloride Level 128 Carbon Dioxide Level 22.0 Anion Gap 8 Blood Urea Nitrogen 4 Creatinine 0.38 Estimat Glomerular Filtration 184 Rate Random Glucose 94 Lactic Acid Level 1.1 Calcium Level 7.2 Protein Corrected Calcium 8.4 Total Bilirubin 0.2 Aspartate Amino Transf 87 (AST/SGOT) Alanine Aminotransferase 18 (ALT/SGPT) Alkaline Phosphatase 36 Total Protein 4.9 Albumin 1.9 Blood Gas Puncture Site ART LINE Blood Gas Patient Temperature 98.6 Blood Gas HCO3 18 Blood Gas Base Excess -7.4 Blood Gas Oxygen Saturation 94 Arterial Blood pH 7.27 Arterial Blood Partial 41 Pressure CO2 Arterial Blood Partial 87 Pressure O2 Arterial Blood Oxygen Content 11.3 Arterial Blood 0.9 Carboxyhemoglobin Arterial Blood Methemoglobin 1.0 Blood Gas Hemoglobin 8.5 Oxygen Delivery Device VENTILATOR Blood Gas Ventilator Setting [facility]/ Blood Gas Inspired Oxygen 30 Santana Gomez PhD Apr 28, 2017 18:41
[2017-04-28 18:46] LABS: BICARBONATE 21.7 MEQ/L (21.0-32.0); MAGNESIUM 1.8 MG/DL (1.5-2.5); POTASSIUM 3.3 MEQ/L (3.5-5.1)
[2017-04-28 19:14] LABS: CALCIUM-PROTEIN CORRECTED 8.3 MG/DL (8.5-10.1)
[2017-04-28] MEDS: ARTIFICIAL TEARS OPTH OINT 3.5 APPLIC/3.5 GM TUBO EACH EYE SCH (19:48)
[2017-04-28] MEDS: ARTIFICIAL TEARS OPTH OINT 3.5 APPLIC/3.5 GM TUBO EACH EYE PRN (19:48)
[2017-04-28] MEDS: POTASSIUM CHLOR 40 MEQ PREMIX 100 ML IV PRN ×2 (19:49→23:49)
[2017-04-28 21:17] LABS: BLOOD GAS BASE EXCESS -6.1 mmol/L (-2-2); BLOOD GAS CARBOXYHEMOGLOBIN 0.9 % (0-4); BLOOD GAS HCO3 19 mmol/L (22-26); BLOOD GAS O2 HGB SATURATION 97 % (90-100); BLOOD GAS OXYGEN CONTENT 12.2 Vol % (12.0-20.0); BLOOD GAS PCO2 30 mmHg (38-42); BLOOD GAS PO2 113 mmHg (61-120); BLOOD GAS TOTAL HGB 8.8 G/DL (12.0-16.0); TEMP CORR TO 93.2
[2017-04-28 21:18] LABS: CRITICAL VALUE NO; FIO2 30 %; OXYGEN DEVICE VENTILATOR; VENT SETTINGS PRVC/AC
[2017-04-28 21:19] LABS: DRAW SITE ART LINE; STAT NO
[2017-04-28] MEDS ORDERED: ICU - POTASSIUM PHOSPHATE 30 MMOL/NS 250 ML IV ONE ×2 (21:45)
[2017-04-28 23:43] LABS: BICARBONATE 20.3 MEQ/L (21.0-32.0); MAGNESIUM 1.8 MG/DL (1.5-2.5); POTASSIUM 3.8 MEQ/L (3.5-5.1)
[2017-04-29] VITALS (17 sets, daily range): BP systolic 134–157; BP diastolic 63–93; PULSE 59–84; RESP 14–16; TEMP 93–93.7; O2SAT 99–100
[2017-04-29] MEDS: MIDAZOLAM 100 MG/NS 100 ML DRIP Premix IV SCH ×3 (00:34→15:32)
[2017-04-29] MEDS: NOREPINEPHRINE INJ 4 MG in SODIUM CHLOR 0.9% 250 ML INJ 246 ML IV SCH ×3 (02:10→10:58)
[2017-04-29] MEDS: CHLORHEXIDINE GLUCONATE 2 % 1 PACK (2 CLOTHS) TOP SCH (02:12)
[2017-04-29] MEDS: PROPOFOL 1000 MG/100 ML IV SCH ×5 (02:15→20:45)
[2017-04-29] MEDS: INSULIN NovoLIN REGULAR SUPPLEMENTAL SCALE SQ SCH ×5 (03:00→21:00)
[2017-04-29 05:13] LABS: BLOOD GAS BASE EXCESS -7.4 mmol/L (-2-2); BLOOD GAS HCO3 17 mmol/L (22-26); BLOOD GAS METHEMOGLOBIN 0.9 % (0-2); BLOOD GAS O2 HGB SATURATION 97 % (90-100); BLOOD GAS OXYGEN CONTENT 11.5 Vol % (12.0-20.0); BLOOD GAS PCO2 26 mmHg (38-42); BLOOD GAS PO2 122 mmHg (61-120); BLOOD GAS TOTAL HGB 8.2 G/DL (12.0-16.0); CRITICAL VALUE NO; OXYGEN DEVICE VENTILATOR; TEMP CORR TO 93.2
[2017-04-29 05:14] LABS: DRAW SITE ART LINE; FIO2 30 %; STAT NO; VENT SETTINGS PRVC/AC
[2017-04-29 05:32] LABS: HEMATOCRIT 25.7 % (35.0-46.0); MEAN CELL VOLUME 94.5 FL (80.0-100.0); MEAN CORPUSCULAR HEMOGLOBIN 31.3 PG (27.0-34.0); MEAN CORPUSCULAR HGB CONC 33.2 % (32.0-36.0); PLATELET COUNT 153 TH/MM3 (150-450); RED BLOOD COUNT 2.72 MIL/MM3 (4.00-5.30); RED CELL DISTRIBUTION WIDTH 13.8 % (11.6-17.2); REVIEW FLAG FINAL; WHITE BLOOD COUNT 15.9 TH/MM3 (4.0-11.0)
[2017-04-29 05:52] LABS: BICARBONATE 19.5 MEQ/L (21.0-32.0); MAGNESIUM 1.7 MG/DL (1.5-2.5); POTASSIUM 3.4 MEQ/L (3.5-5.1)
[2017-04-29 06:06] LABS: CALCIUM-PROTEIN CORRECTED 8.4 MG/DL (8.5-10.1)
[2017-04-29] MEDS: POTASSIUM CHLOR 40 MEQ PREMIX 100 ML IV PRN (06:28)
[2017-04-29] MEDS ORDERED: SODIUM CHLOR 0.9% IV ONE (06:45)
[2017-04-29] MEDS ORDERED: POTASSIUM PHOSPHATE IV ONE (06:45)
--- NOTE | 2017-04-29 07:21 | HHI.CCPN ---
Subjective Remarks/Hospital Course This is a 42yF with unremarkable past medical history who presents to the [facility] emergency department with new-onset left-sided weakness and slurred speech. She is an employee of [email or web address] who had a witnessed onset of her symptoms at 12:45pm. In the [facility] ED she was immediately taken for non-contrasted head CT which was negative for acute hemorrhage. She was given iv tpa which was instituted 36 minutes after arrival, per my conversation with the international coordinator. She was then emergently transferred to [facility]. CT angiography demonstrated acute right m1 cut-off. She was taken by [facility] and arrived directly to the IR suite, where I met and evaluated the patient. Due to the acute nature of her illness and her dysarthria, a complete history is not obtainable. She does endorse right-sided headache, although denied any chest pain, shortness of breath. 04/27: Back from OR after right craniectomy for decompression s/p left MCA CVA. Heavily sedated. Some new history from a co-worker indicates that patient started taking oral contraceptive 2 months ago. 04/28: Continued problems with cerebral edema as expected. Push osmolality a little higher and restrict fluid. Tolerate pH mildly acidotic to avoid cerebral vascular constriction. 04/29: Osmolality in good range. ICP controlled. Hypothermia to 34 degrees. Raise to 35 slowly as long as ICP is acceptable. Unable to start tube feeds yet as gut motility will be poor at cooler temperature. Objective Vital Signs Date Time Temp Pulse Resp B/P Pulse Ox O2 Delivery O2 Flow Rate FiO2 04/29/17 06:00 78 04/29/17 04:15 100 30 04/29/17 04:00 93.6 16 157/74 04/27/17 07:00 Mechanical Ventilator Intake and Output 04/28/17 04/28/17 04/29/17 08:00 16:00 00:00 Intake Total 2018 ml 1976 ml 981 ml Output Total 350 ml 935 ml 1950 ml Balance 1668 ml 1041 ml -969 ml Result Diagram: 04/29/17 0510 04/29/17 0510 Other Results Laboratory Tests Test 04/28/17 04/28/17 04/29/17 14:44 21:02 05:02 Blood Gas Puncture Site ART LINE ART LINE ART LINE Blood Gas Patient Temperature 98.6 93.2 93.2 Blood Gas HCO3 18 mmol/L 19 mmol/L 17 mmol/L (22-26) (22-26) (22-26) Blood Gas Base Excess -7.4 mmol/L -6.1 mmol/L -7.4 mmol/L (-2-2) (-2-2) (-2-2) Blood Gas Oxygen Saturation 94 % (90-100) 97 % (90-100) 97 % (90-100) Arterial Blood pH 7.27 7.39 7.41 (7.380-7.420) (7.380-7.420) (7.380-7.420) Arterial Blood Partial 41 mmHg (38-42) 30 mmHg (38-42) 26 mmHg (38-42) Pressure CO2 Arterial Blood Partial 87 mmHg 113 mmHg 122 mmHg Pressure O2 (61-120) (61-120) (61-120) Arterial Blood Oxygen Content 11.3 Vol % 12.2 Vol % 11.5 Vol % (12.0-20.0) (12.0-20.0) (12.0-20.0) Arterial Blood 0.9 % (0-4) 0.9 % (0-4) 1.0 % (0-4) Carboxyhemoglobin Arterial Blood Methemoglobin 1.0 % (0-2) 1.0 % (0-2) 0.9 % (0-2) Blood Gas Hemoglobin 8.5 G/DL 8.8 G/DL 8.2 G/DL (12.0-16.0) (12.0-16.0) (12.0-16.0) Oxygen Delivery Device VENTILATOR VENTILATOR VENTILATOR Blood Gas Ventilator Setting PRVC/AC PRVC/AC PRVC/AC Blood Gas Inspired Oxygen 30 % 30 % 30 % Imaging Last Impressions Neck CTA 04/26/[id number] Signed Impressions: Service Date/Time: Wednesday, April 26, 2017 13:39 - CONCLUSION: 1. Standard 3 vessel arch anatomy. 2. Widely patent carotid arteries. 3. Dominant left vertebral artery. Vertebral arteries are patent bilaterally. 4. 5 mm right thyroid nodule. This can be further evaluated with ultrasound on an outpatient basis. Cyrus Orozco MD Head CTA 04/26/171315 Signed Impressions: Service Date/Time: Wednesday, April 26, 2017 13:39 - CONCLUSION: 1. Occlusion of the right M1 segment. Grossly intact mendoza-white matter differentiation with gross ASPECT score of 10/10. 2. Incidental finding of 5 mm right thyroid nodule. This can be further evaluated with ultrasound on an outpatient basis. Cyrus Orozco MD Head CT 04/26/17 0000 Signed Impressions: Service Date/Time: Wednesday, April 26, 2017 12:51 - CONCLUSION: Normal examination for a patient of this age. Jerry Torres MD Chest X-Ray 04/26/17 0000 Signed Impressions: Service Date/Time: Wednesday, April 26, 2017 14:01 - CONCLUSION: No acute cardiopulmonary disease radiographically. Cyrus Orozco MD Objective Remarks gen: middle-aged female, heavily sedated for brain protection. heent: orally intubated. mild facial edema. neck: trachea midline. orally intubated. chest: clear, no adventitious sounds, equal chest rise. not tachypneic cv: normal rate, regular rhythm. sinus by tele. no JVD. no m,r abd: soft, nontender, nondistended. no guarding. quiet. extr: no peripheral edema. distal pulses 2+, well perfused. neuro: RASS -5; Heavily sedated. Left pupil 2 mm, reacts. Right pupil 3 mm, reacts slowly. Otherwise unresponsive as expected. A/P Assessment and Plan Assessment: 42yF with acute right M1 MCA CVA now s/p systemic TPA and currently in interventional radiology for mechanical thrombectomy. She is very critically ill at this time. Active Problems: Acute right M1 MCA CVA s/p systemic TPA and endovascular thrombectomy Dysarthria Left-sided hemiparesis Left-sided facial droop Plan: -- 3% saline -- SBP goals per my discussion with interventionalist will be 140 - 160 -- phenylephrine and levophed will be used prn to achieve these goals. -- Serial osmo, Na -- interval head CT when more stable -- nursing bedside swallow eval before advancing diet, hold while cool -- OK for ASA, hold anticoagulation -- SCDs -- pepcid iv for gi prophylaxis -- EtCO2 27 - 33 --Core cooling to 34-35 --Stay with concentrated osmo. --Seizure prophylaxis with Keppra Overall impression: Large distribution right MCA CVA with shift required decompressive craniectomy 04/27 in an attempt to rescue the dominant hemisphere. She is critically ill with an unstable neurological process and considerable cerebral edema. We have induced hypothermia for protection of the perfused brain. Critical Care 55 mins Anthony Garcia MD Apr 29, 2017 07:21
[2017-04-29] MEDS: CHLORHEXIDINE 0.12% (ORAL KIT) 15 ML CUP MT SCH ×2 (08:12→20:00)
[2017-04-29] MEDS: levETIRAcetam INJ 500 MG in SODIUM CHLORIDE 0.9% INJ 100 ML IV SCH ×2 (08:13→20:44)
[2017-04-29] MEDS: 3% SALINE INJ 500 ML IV SCH ×2 (08:13→23:45)
[2017-04-29] MEDS: ARTIFICIAL TEARS OPTH OINT 3.5 APPLIC/3.5 GM TUBO EACH EYE SCH ×2 (08:13→20:41)
[2017-04-29] MEDS: fentaNYL DRIP 250 ML IV SCH ×2 (08:13→15:32)
[2017-04-29] MEDS: DOCUSATE SODIUM 50 MG/SENNA 8.6 MG TAB PO SCH ×2 (08:14→20:45)
[2017-04-29] MEDS: SODIUM CHLORIDE 0.9% FLUSH 10 ML FLUSH IV FLUSH PRN (08:14)
[2017-04-29] MEDS: ASPIRIN 300 MG SUPP RECTAL SCH (08:14)
[2017-04-29] MEDS: DOCUSATE SODIUM 100 MG CAP PO SCH ×2 (08:14→20:44)
[2017-04-29] MEDS: PANTOPRAZOLE SODIUM 40 MG VIAL IV SCH (08:14)
[2017-04-29] MEDS: SODIUM CHLORIDE 0.9% FLUSH 5 ML FLUSH IVF SCH (08:16)
--- NOTE | 2017-04-29 10:45 | HHI.NSPN ---
Note Status Status: Progress Note Interval History Interval History 42 y/o male suffered ischemic CVA, s/p tPA. Her MRI showed midline shift and was taken for emergent right decompressive craniectomy 04/27/17 with placement of ICP monitor. 04/28: pt seen this am during rounds: ICPs became elevated last evening and early this morning in the mid 20's. pt started on Versed drip with bolus of 23%. On Mannitol and 3% NS. ICPs now 11-14. Critical care aware will be initiating code cool. Unstable for repeat CT Head this am. 04/29: intubated and well sedated, hypothermic therapy. ICPs improved and stable overnight. Labs, Micro, & Vital Signs Results Date Time Temp Pulse Resp B/P Pulse Ox O2 Delivery O2 Flow Rate FiO2 04/29/17 10:00 81 04/29/17 08:49 100 30 04/29/17 08:00 84 04/29/17 08:00 93.6 84 15 134/63 100 04/29/17 08:00 30 04/29/17 06:00 78 04/29/17 04:15 100 30 04/29/17 04:00 30 04/29/17 04:00 93.6 60 16 157/74 100 04/29/17 04:00 62 04/29/17 02:00 62 04/29/17 01:19 100 30 04/29/17 00:00 59 04/29/17 00:00 30 04/29/17 00:00 93.6 67 14 144/66 100 04/28/17 22:00 56 04/28/17 20:12 100 30 04/28/17 20:00 62 04/28/17 20:00 93.6 62 14 148/73 100 04/28/17 20:00 30 04/28/17 18:00 66 04/28/17 16:15 100 30 04/28/17 16:00 30 04/28/17 16:00 55 04/28/17 16:00 93.6 55 14 152/75 100 04/28/17 14:00 54 04/28/17 12:06 100 30 04/28/17 12:00 93.7 52 12 148/80 100 04/28/17 12:00 30 04/28/17 12:00 52 04/29/17 07:00 Intake Total 4240 ml Output Total 3185 ml Balance 1055 ml Constitutional Vital Signs Date Time Temp Pulse Resp B/P Pulse Ox O2 Delivery O2 Flow Rate FiO2 04/29/17 10:00 81 04/29/17 08:49 100 30 04/29/17 08:00 84 04/29/17 08:00 93.6 84 15 134/63 100 04/29/17 08:00 30 04/29/17 06:00 78 04/29/17 04:15 100 30 04/29/17 04:00 30 04/29/17 04:00 93.6 60 16 157/74 100 04/29/17 04:00 62 04/29/17 02:00 62 04/29/17 01:19 100 30 04/29/17 00:00 59 04/29/17 00:00 30 04/29/17 00:00 93.6 67 14 144/66 100 04/28/17 22:00 56 04/28/17 20:12 100 30 04/28/17 20:00 62 04/28/17 20:00 93.6 62 14 148/73 100 04/28/17 20:00 30 04/28/17 18:00 66 04/28/17 16:15 100 30 04/28/17 16:00 30 04/28/17 16:00 55 04/28/17 16:00 93.6 55 14 152/75 100 04/28/17 14:00 54 04/28/17 12:06 100 30 04/28/17 12:00 93.7 52 12 148/80 100 04/28/17 12:00 30 04/28/17 12:00 52 04/29/17 07:00 Intake Total 4240 ml Output Total 3185 ml Balance 1055 ml Review of Systems/Exam Exam Ms. [place] is intubated and currently well sedated on multiple sedatives. Right flap full, slightly tight but felt better from yesterday. ICPs currently 12 Cranial Nerves: Left pupil 2. cannot assess right pupils due to severe eyelid swelling. Motor: No response, very well sedated Bilateral plantar response silent. Medications Current Medications Current Medications Medications (Trade) Dose Ordered Sig/Elida Route PRN Reason Start Time Stop Time Status Last Admin Dose Admin Magnesium Oxide 800 mg 800 mg UNSCH PRN PO For Magnesium 1.2 - 1.6 mg/dL 04/26/17 14:15 Magnesium Sulfate 4 gm/Sodium Chloride 100 ml @ 50 mls/hr UNSCH PRN IV For Magnesium 0.9 - 1.1 mg/dL 04/26/17 14:15 Magnesium Sulfate 2 gm/Sodium Chloride 100 ml @ 50 mls/hr UNSCH PRN IV For Magnesium 1.2 - 1.6 mg/dL 04/26/17 14:15 Potassium Chloride 100 ml @ 50 mls/hr Q2H PRN IV For Potassium 2.8 - 3.2 mEq/L 04/26/17 14:15 Potassium Chloride 100 ml @ 50 mls/hr Q2H PRN IV For Potassium 3.3 - 3.5 mEq/L 04/26/17 14:15 04/27/17 13:31 Potassium Chloride 100 ml @ 50 mls/hr Q2H PRN IV For Potassium 2.8 - 3.2 mEq/L 04/26/17 14:15 04/28/17 23:49 Potassium Chloride (KCl 40 Meq Premix Inj) 100 ml @ 25 mls/hr UNSCH PRN IV For Potassium 3.3 - 3.5 mEq/L 04/26/17 14:15 04/29/17 06:28 Potassium Phosphate (K-Phos) 2,000 mg Q4H PRN PO For Phosphorus < 2.5 mg/dL 04/26/17 14:15 04/28/17 05:25 Potassium Phosphate 2000 mg 2,000 mg UNSCH PRN PO/TUBE SEE LABEL COMMENTS 04/26/17 14:15 Sodium Phosphate/ Sodium Chloride (Sodium Phosphate Inj/NS 250 ml Inj) 250 ml @ 42 mls/hr UNSCH PRN IV For Phosphorus < 2.5 mg/dL 04/26/17 14:15 04/27/17 20:41 Dextrose (D50w (Vial) Inj) 25 ml UNSCH PRN IV PUSH HYPOGLYCEMIA-SEE COMMENTS 04/26/17 14:15 Pantoprazole Sodium (Protonix Inj) 40 mg DAILY IV 04/27/17 09:00 04/29/17 08:14 Ondansetron HCl (Zofran Inj) 4 mg Q6H PRN IV NAUSEA OR VOMITING 04/26/17 14:15 Miscellaneous Information 1 Q361D XX 04/26/17 14:15 Chlorhexidine Gluconate (Chlorhexidine 2% Cloth) 3 pack Taper DAILY@04 TOP 04/27/17 04:00 04/23/18 03:59 04/29/17 02:12 Chlorhexidine Gluconate (Chlorhexidine 2% Cloth) 3 pack UNSCH PRN TOP HYGIENIC CARE 04/26/17 14:15 Senna/Docusate Sodium 1 tab 1 tab BID PO 04/26/17 21:00 04/29/17 08:14 Phenylephrine HCl 40 mg/Sodium Chloride 504 ml @ 0 mls/hr TITRATE IV 04/26/17 16:30 04/28/17 10:00 Nicardipine HCl/ Sodium Chloride (Cardene Inj/NS 250 ml Inj) 260 ml @ 0 mls/hr TITRATE IV 04/26/17 15:30 Labetalol HCl (Trandate Inj) 20 mg Q15M PRN IV PUSH sbp > 160 04/26/17 15:30 Hydralazine HCl 10 mg 10 mg Q30M PRN IV PUSH sbp > 160 04/26/17 15:30 Fentanyl Citrate 250 ml @ 0 mls/hr TITRATE IV 04/26/17 21:45 04/29/17 08:13 Propofol 100 ml @ 0 mls/hr TITRATE IV 04/26/17 22:00 04/29/17 10:28 Sodium Chloride (Sodium Chloride 3% Inj) 500 ml @ 10 mls/hr Q16H IV 04/27/17 07:45 04/29/17 08:13 IV Flush (NS Flush) 2 ml UNSCH PRN IVF FLUSH AFTER USING IV ACCESS 04/27/17 10:30 IV Flush 2 ml 2 ml BID IVF 04/27/17 21:00 04/29/17 08:16 Levetriacetam/ Sodium Chloride (Keppra Inj/NS Inj) 105 ml @ 400 mls/hr Q12H IV 04/27/17 21:00 04/29/17 08:13 Bisacodyl (Dulcolax Supp) 10 mg DAILY PRN RECTAL CONSTIPATION 04/27/17 10:30 Docusate Sodium (Colace) 100 mg BID PO 04/27/17 21:00 04/29/17 08:14 Calcium Gluconate 1 gm 1 gm UNSCH PRN IV SEE LABEL COMMENTS 04/27/17 10:30 04/27/17 13:32 Potassium Chloride 100 ml @ 50 mls/hr UNSCH PRN IV POTASSIUM LESS THAN 4 04/27/17 10:30 Magnesium Sulfate/ Sodium Chloride (Magnesium Sulfate Inj/NS Inj) 108 ml @ 108 mls/hr UNSCH PRN IV MAGNESIUM LESS THAN 2 04/27/17 10:30 Acetaminophen/ Hydrocodone Bitart ([place] 10-325 Mg) 1 tab Q4H PRN PO PAIN SCALE 1 TO 5 04/27/17 10:30 Acetaminophen/ Hydrocodone Bitart ([place] 10-325 Mg) 2 tab Q4H PRN PO PAIN SCALE 6 TO 10 04/27/17 10:30 04/28/17 01:15 Morphine Sulfate (Morphine Inj) 2 mg Q2H PRN IV PUSH PAIN SCALE 1 TO 6 04/27/17 10:30 Morphine Sulfate (Morphine Inj) 4 mg Q2H PRN IV PUSH PAIN SCALE 7 TO 10 04/27/17 10:30 04/28/17 06:30 Acetaminophen (Tylenol) 650 mg Q4HR PRN PO TEMPERATURE > 100.0 F 04/27/17 10:30 Chlorhexidine Gluconate (Peridex 0.12% Liq) 15 ml BID@08,20 MT 04/27/17 20:00 04/29/17 08:12 Aspirin (Aspirin Supp) 300 mg DAILY RECTAL 04/27/17 16:15 04/29/17 08:14 Fentanyl Citrate 100 mcg 100 mcg Q1H PRN IV PUSH SEE LABEL COMMENTS 04/28/17 02:00 04/28/17 08:02 Midazolam HCl (Versed Inj) 100 ml @ 0 mls/hr TITRATE IV 04/28/17 07:00 04/29/17 10:14 Acetaminophen (Ofirmev Inj) 1,000 mg Q6H PRN IV Temp > 101. 04/28/17 08:15 Artificial Tears (Lacrilube Opht Oint) APPLY UNDER BOTH EYELIDS BID EACH EYE 04/28/17 21:00 04/29/17 08:13 Lorazepam 1 mg 1 mg Q1H PRN IV SEIZURES 04/28/17 11:15 Miscellaneous Information ml @ 0 mls/hr UNSCH IV 04/28/17 11:15 Sodium Chloride (NS Flush) 2 ml UNSCH PRN IV FLUSH SEE LABEL COMMENTS 04/28/17 11:15 04/29/17 08:14 Sodium Chloride (NS Flush) 2 ml UNSCH PRN IV FLUSH IV FLUSH 04/28/17 11:15 Meperidine HCl (Demerol Inj) 25 mg Q2H PRN IV PUSH SHIVERING 04/28/17 11:15 Artificial Tears 1 applic 1 applic Q4H PRN EACH EYE SEE LABEL COMMENTS 04/28/17 11:15 04/28/17 19:48 Norepinephrine Bitartrate/Sodium Chloride (Levophed Inj/NS 250 ml Inj) 250 ml @ 0 mls/hr TITRATE IV 04/28/17 11:45 04/29/17 06:28 Terbutaline Sulfate 1 mg 1 mg UNSCH PRN SQ For Extravasation 04/28/17 11:45 Potassium Phosphate/Sodium Chloride (Potassium Phosphate Inj/NS 250 ml Inj) 250 ml @ 62.5 mls/hr ONCE ONCE IV 04/29/17 06:45 04/29/17 10:44 04/29/17 06:45 Medical Decision Making MDM Remarks 42 year old female with large right hemispheric CVA with mass effect and midline shift, s/p right decompressive craniectomy with placement of ICP monitor 04/27/17 Plan Plan Remarks cont keep well sedated cont hyperosmotic tx with Mannitol and 3% NS, critical care mgt - hypothermic tx cont serial neuro checks nonchemical dvt prophylaxis due to ICH protonix for stress ulcer proph dw nursing Sakina Israel Apr 29, 2017 10:45
[2017-04-29 12:58] LABS: BICARBONATE 21.4 MEQ/L (21.0-32.0); MAGNESIUM 1.7 MG/DL (1.5-2.5); POTASSIUM 3.8 MEQ/L (3.5-5.1)
[2017-04-29] MEDS ORDERED: FUROSEMIDE 20 MG/2 ML VIAL IV PUSH ONE (15:30)
[2017-04-29] MEDS: NOREPINEPHRINE INJ 16 MG in SODIUM CHLOR 0.9% 250 ML INJ 234 ML IV SCH (15:33)
--- NOTE | 2017-04-29 17:07 | HHI.PR ---
Review/Management Diagnosis right MCA stroke, s/p iv tpa and thrombectomy of right M1 thrombus. Plan continue asa follow up hypercoag labs MATY when more stable Diagnosis/Plan: Subjective Subjective Comments No acute events reported Active Medications Current Medications Medications (Trade) Dose Ordered Sig/Elida Route Start Time Stop Time Status Last Admin Magnesium Oxide 800 mg 800 mg UNSCH PRN PO 04/26/17 14:15 Magnesium Sulfate 4 gm/Sodium Chloride 100 ml @ 50 mls/hr UNSCH PRN IV 04/26/17 14:15 Magnesium Sulfate 2 gm/Sodium Chloride 100 ml @ 50 mls/hr UNSCH PRN IV 04/26/17 14:15 Potassium Chloride 100 ml @ 50 mls/hr Q2H PRN IV 04/26/17 14:15 Potassium Chloride 100 ml @ 50 mls/hr Q2H PRN IV 04/26/17 14:15 04/27/17 13:31 Potassium Chloride 100 ml @ 50 mls/hr Q2H PRN IV 04/26/17 14:15 04/28/17 23:49 (KCl 40 Meq Premix Inj) 100 ml @ 25 mls/hr UNSCH PRN IV 04/26/17 14:15 04/29/17 06:28 (K-Phos) 2,000 mg Q4H PRN PO 04/26/17 14:15 04/28/17 05:25 Potassium Phosphate 2000 mg 2,000 mg UNSCH PRN PO/TUBE 04/26/17 14:15 (Sodium Phosphate Inj/NS 250 ml Inj) 250 ml @ 42 mls/hr UNSCH PRN IV 04/26/17 14:15 04/27/17 20:41 (D50w (Vial) Inj) 25 ml UNSCH PRN IV PUSH 04/26/17 14:15 (Protonix Inj) 40 mg DAILY IV 04/27/17 09:00 04/29/17 08:14 (Zofran Inj) 4 mg Q6H PRN IV 04/26/17 14:15 Miscellaneous Information 1 Q361D XX 04/26/17 14:15 (Chlorhexidine 2% Cloth) 3 pack Taper DAILY@04 TOP 04/27/17 04:00 04/23/18 03:59 04/29/17 02:12 (Chlorhexidine 2% Cloth) 3 pack UNSCH PRN TOP 04/26/17 14:15 Senna/Docusate Sodium 1 tab 1 tab BID PO 04/26/17 21:00 04/29/17 08:14 Phenylephrine HCl 40 mg/Sodium Chloride 504 ml @ 0 mls/hr TITRATE IV 04/26/17 16:30 04/28/17 10:00 (Cardene Inj/NS 250 ml Inj) 260 ml @ 0 mls/hr TITRATE IV 04/26/17 15:30 (Trandate Inj) 20 mg Q15M PRN IV PUSH 04/26/17 15:30 Hydralazine HCl 10 mg 10 mg Q30M PRN IV PUSH 04/26/17 15:30 Fentanyl Citrate 250 ml @ 0 mls/hr TITRATE IV 04/26/17 21:45 04/29/17 15:32 Propofol 100 ml @ 0 mls/hr TITRATE IV 04/26/17 22:00 04/29/17 15:33 (Sodium Chloride 3% Inj) 500 ml @ 10 mls/hr Q16H IV 04/27/17 07:45 04/29/17 08:13 (NS Flush) 2 ml UNSCH PRN IVF 04/27/17 10:30 IV Flush 2 ml 2 ml BID IVF 04/27/17 21:00 04/29/17 08:16 (Keppra Inj/NS Inj) 105 ml @ 400 mls/hr Q12H IV 04/27/17 21:00 04/29/17 08:13 (Dulcolax Supp) 10 mg DAILY PRN RECTAL 04/27/17 10:30 (Colace) 100 mg BID PO 04/27/17 21:00 04/29/17 08:14 Calcium Gluconate 1 gm 1 gm UNSCH PRN IV 04/27/17 10:30 04/27/17 13:32 Potassium Chloride 100 ml @ 50 mls/hr UNSCH PRN IV 04/27/17 10:30 (Magnesium Sulfate Inj/NS Inj) 108 ml @ 108 mls/hr UNSCH PRN IV 04/27/17 10:30 ([place] 10-325 Mg) 1 tab Q4H PRN PO 04/27/17 10:30 ([place] 10-325 Mg) 2 tab Q4H PRN PO 04/27/17 10:30 04/28/17 01:15 (Morphine Inj) 2 mg Q2H PRN IV PUSH 04/27/17 10:30 (Morphine Inj) 4 mg Q2H PRN IV PUSH 04/27/17 10:30 04/28/17 06:30 (Tylenol) 650 mg Q4HR PRN PO 04/27/17 10:30 (Peridex 0.12% Liq) 15 ml BID@08,20 MT 04/27/17 20:00 04/29/17 08:12 (Aspirin Supp) 300 mg DAILY RECTAL 04/27/17 16:15 04/29/17 08:14 Fentanyl Citrate 100 mcg 100 mcg Q1H PRN IV PUSH 04/28/17 02:00 04/28/17 08:02 (Versed Inj) 100 ml @ 0 mls/hr TITRATE IV 04/28/17 07:00 04/29/17 15:32 (Ofirmev Inj) 1,000 mg Q6H PRN IV 04/28/17 08:15 (Lacrilube Opht Oint) APPLY UNDER BOTH EYELIDS BID EACH EYE 04/28/17 21:00 04/29/17 08:13 Lorazepam 1 mg 1 mg Q1H PRN IV 04/28/17 11:15 Miscellaneous Information ml @ 0 mls/hr UNSCH IV 04/28/17 11:15 (NS Flush) 2 ml UNSCH PRN IV FLUSH 04/28/17 11:15 04/29/17 08:14 (NS Flush) 2 ml UNSCH PRN IV FLUSH 04/28/17 11:15 (Demerol Inj) 25 mg Q2H PRN IV PUSH 04/28/17 11:15 (Lacrilube Opht Oint) 1 applic Q4H PRN EACH EYE 04/28/17 11:15 04/28/17 19:48 Terbutaline Sulfate 1 mg 1 mg UNSCH PRN SQ 04/28/17 11:45 (Levophed Inj/NS 250 ml Inj) 250 ml @ 0 mls/hr TITRATE IV 04/29/17 15:30 04/29/17 15:33 Allergies Allergies Coded Allergies Shellfish (Verified Allergy, Unknown, 04/26/17) Exam I&O / VS 04/28/17 04/28/17 04/29/17 15:00 23:00 07:00 Intake Total 1976 ml 981 ml 1283 ml Output Total 935 ml 1950 ml 300 ml Balance 1041 ml -969 ml 983 ml Intake Oral 0 ml IV Total 1976 ml 981 ml 1283 ml Output Urine Total 850 ml 1750 ml 300 ml Gastric Drainage Total 50 ml 200 ml Drainage Total 35 ml 0 ml # Bowel Movements 0 Vital Signs Date Time Temp Pulse Resp B/P Pulse Ox O2 Delivery O2 Flow Rate FiO2 04/29/17 16:00 40 04/29/17 16:00 75 04/29/17 16:00 100 40 04/29/17 16:00 93.7 75 15 147/93 100 04/29/17 14:00 76 04/29/17 12:31 100 30 04/29/17 12:00 93.0 82 15 148/72 99 04/29/17 12:00 82 04/29/17 12:00 30 04/29/17 10:00 81 04/29/17 08:49 100 30 04/29/17 08:00 84 04/29/17 08:00 93.6 84 15 134/63 100 04/29/17 08:00 30 04/29/17 06:00 78 04/29/17 04:15 100 30 04/29/17 04:00 30 04/29/17 04:00 93.6 60 16 157/74 100 04/29/17 04:00 62 04/29/17 02:00 62 04/29/17 01:19 100 30 04/29/17 00:00 59 04/29/17 00:00 30 04/29/17 00:00 93.6 67 14 144/66 100 04/28/17 22:00 56 04/28/17 20:12 100 30 04/28/17 20:00 62 04/28/17 20:00 93.6 62 14 148/73 100 04/28/17 20:00 30 04/28/17 18:00 66 Exam Comments sedated pupils 2mm and reactive no spontaneous limb movement and no withdrawal Objective Micro and Labs Laboratory Tests Test 04/28/17 04/28/17 04/28/17 04/29/17 17:30 21:02 23:10 05:02 Sodium Level 158 153 Potassium Level 3.3 3.8 Chloride Level 127 124 Carbon Dioxide Level 21.7 20.3 Anion Gap 9 9 Blood Urea Nitrogen 5 4 Creatinine 0.39 0.43 Estimat Glomerular Filtration 179 160 Rate Random Glucose 110 124 Serum Osmolality 316 316 Calcium Level 7.2 7.8 Protein Corrected Calcium 8.3 Phosphorus Level 1.3 Magnesium Level 1.8 1.8 Total Protein 5.1 Blood Gas Puncture Site ART LINE ART LINE Blood Gas Patient Temperature 93.2 93.2 Blood Gas HCO3 19 17 Blood Gas Base Excess -6.1 -7.4 Blood Gas Oxygen Saturation 97 97 Arterial Blood pH 7.39 7.41 Arterial Blood Partial 30 26 Pressure CO2 Arterial Blood Partial 113 122 Pressure O2 Arterial Blood Oxygen Content 12.2 11.5 Arterial Blood 0.9 1.0 Carboxyhemoglobin Arterial Blood Methemoglobin 1.0 0.9 Blood Gas Hemoglobin 8.8 8.2 Oxygen Delivery Device VENTILATOR VENTILATOR Blood Gas Ventilator Setting PRVC/AC PRVC/AC Blood Gas Inspired Oxygen 30 30 Test 04/29/17 04/29/17 04/29/17 05:10 11:00 15:06 White Blood Count 15.9 Red Blood Count 2.72 Hemoglobin 8.5 Hematocrit 25.7 Mean Corpuscular Volume 94.5 Mean Corpuscular Hemoglobin 31.3 Mean Corpuscular Hemoglobin 33.2 Concent Red Cell Distribution Width 13.8 Platelet Count 153 Mean Platelet Volume 8.6 Sodium Level 155 156 Potassium Level 3.4 3.8 Chloride Level 127 128 Carbon Dioxide Level 19.5 21.4 Anion Gap 9 7 Blood Urea Nitrogen 4 4 Creatinine 0.37 0.35 Estimat Glomerular Filtration 190 202 Rate Random Glucose 114 101 Serum Osmolality 317 319 Calcium Level 7.4 7.5 Protein Corrected Calcium 8.4 Phosphorus Level 1.4 Magnesium Level 1.7 1.7 Total Protein 5.3 Blood Gas Puncture Site ART LINE Blood Gas Patient Temperature 98.6 Blood Gas HCO3 17 Blood Gas Base Excess -7.8 Blood Gas Oxygen Saturation 95 Arterial Blood pH 7.32 Arterial Blood Partial 34 Pressure CO2 Arterial Blood Partial 89 Pressure O2 Arterial Blood Oxygen Content 10.9 Arterial Blood 1.0 Carboxyhemoglobin Arterial Blood Methemoglobin 0.9 Blood Gas Hemoglobin 8.1 Oxygen Delivery Device VENTILATOR Blood Gas Ventilator Setting PRV/15/400/IT1.0/+5 Blood Gas Inspired Oxygen 30 Date/Time Procedure Status Source Growth 04/29/17 03:17 Aerobic Blood Culture Received Blood Peripheral Pending 04/29/17 03:17 Anaerobic Blood Culture Received Blood Peripheral Pending Santana Gomez PhD Apr 29, 2017 17:07
[2017-04-29 17:28] LABS: BICARBONATE 21.6 MEQ/L (21.0-32.0); POTASSIUM 3.6 MEQ/L (3.5-5.1)
[2017-04-29] MEDS ORDERED: SODIUM BICARBONATE 8.4% INJ 50 MEQ/50 ML SYR IV PUSH ONE (17:45)
[2017-04-29] MEDS: SODIUM BICARBONATE 8.4% INJ 150 MEQ in WATER STERILE FOR INJ 850 ML IV SCH (18:52)
[2017-04-29] MEDS: SODIUM PHOSPHATE INJ 30 MMOL in SODIUM CHLOR 0.9% 250 ML INJ 240 ML IV PRN (18:52)
[2017-04-29 22:59] LABS: BICARBONATE 25.4 MEQ/L (21.0-32.0); MAGNESIUM 1.5 MG/DL (1.5-2.5); POTASSIUM 3.2 MEQ/L (3.5-5.1)
[2017-04-29 23:22] LABS: CALCIUM-PROTEIN CORRECTED 8.2 MG/DL (8.5-10.1)
[2017-04-29 23:51] LABS: THROMBIN TIME FOR LA ND sec (13-19)
[2017-04-30] VITALS (19 sets, daily range): BP systolic 140–156; BP diastolic 69–81; PULSE 64–90; RESP 15–24; TEMP 93.3–95; O2SAT 97–100
[2017-04-30] MEDS: PROPOFOL 1000 MG/100 ML IV SCH ×6 (00:01→23:30)
[2017-04-30] MEDS: MAGNESIUM SULFATE INJ 4 GM in SODIUM CHLORIDE 0.9% INJ 100 ML IV PRN ×2 (00:38→18:31)
[2017-04-30] MEDS: POTASSIUM CHLOR 40 MEQ PREMIX 100 ML IV PRN ×3 (01:53→18:30)
[2017-04-30] MEDS: INSULIN NovoLIN REGULAR SUPPLEMENTAL SCALE SQ SCH ×5 (03:00→21:00)
[2017-04-30 03:21] LABS: BLOOD GAS BASE EXCESS -3.3 mmol/L (-2-2); BLOOD GAS CARBOXYHEMOGLOBIN 0.9 % (0-4); BLOOD GAS HCO3 21 mmol/L (22-26); BLOOD GAS METHEMOGLOBIN 1.1 % (0-2); BLOOD GAS O2 HGB SATURATION 92 % (90-100); BLOOD GAS OXYGEN CONTENT 11.4 Vol % (12.0-20.0); BLOOD GAS PCO2 32 mmHg (38-42); BLOOD GAS PO2 59 mmHg (61-120); BLOOD GAS TOTAL HGB 8.8 G/DL (12.0-16.0); TEMP CORR TO 93.1
[2017-04-30 03:22] LABS: CRITICAL VALUE YES; OXYGEN DEVICE VENTILATOR
[2017-04-30 03:24] LABS: DRAW SITE ART LINE; FIO2 40 %; STAT NO
[2017-04-30] MEDS: CHLORHEXIDINE GLUCONATE 2 % 1 PACK (2 CLOTHS) TOP SCH (04:00)
[2017-04-30] MEDS: MIDAZOLAM 100 MG/NS 100 ML DRIP Premix IV SCH ×2 (04:43→15:56)
[2017-04-30 04:47] LABS: HEMATOCRIT 23.3 % (35.0-46.0); MEAN CELL VOLUME 94.4 FL (80.0-100.0); MEAN CORPUSCULAR HEMOGLOBIN 31.5 PG (27.0-34.0); MEAN CORPUSCULAR HGB CONC 33.4 % (32.0-36.0); PLATELET COUNT 116 TH/MM3 (150-450); RED BLOOD COUNT 2.47 MIL/MM3 (4.00-5.30); RED CELL DISTRIBUTION WIDTH 13.7 % (11.6-17.2); REVIEW FLAG FINAL; WHITE BLOOD COUNT 7.6 TH/MM3 (4.0-11.0)
[2017-04-30] MEDS: PHENYLEPHRINE INJ 40 MG in SODIUM CHLORID 0.9% 500 ML INJ 500 ML IV SCH ×2 (05:26→21:59)
[2017-04-30 06:00] LABS: BICARBONATE 23.6 MEQ/L (21.0-32.0); POTASSIUM 3.7 MEQ/L (3.5-5.1)
[2017-04-30 06:19] LABS: CALCIUM-PROTEIN CORRECTED 8.6 MG/DL (8.5-10.1)
--- NOTE | 2017-04-30 06:35 | HHI.CCPN ---
Subjective Remarks/Hospital Course This is a 42yF with unremarkable past medical history who presents to the [facility] emergency department with new-onset left-sided weakness and slurred speech. She is an employee of [employer] who had a witnessed onset of her symptoms at 12:45pm. In the [facility] ED she was immediately taken for non-contrasted head CT which was negative for acute hemorrhage. She was given iv tpa which was instituted 36 minutes after arrival, per my conversation with the lean manufacturing coordinator. She was then emergently transferred to [facility]. CT angiography demonstrated acute right m1 cut-off. She was taken by [facility] and arrived directly to the IR suite, where I met and evaluated the patient. Due to the acute nature of her illness and her dysarthria, a complete history is not obtainable. She does endorse right-sided headache, although denied any chest pain, shortness of breath. 04/27: Back from OR after right craniectomy for decompression s/p left MCA CVA. Heavily sedated. Some new history from a co-worker indicates that patient started taking oral contraceptive 2 months ago. 04/28: Continued problems with cerebral edema as expected. Push osmolality a little higher and restrict fluid. Tolerate pH mildly acidotic to avoid cerebral vascular constriction. 04/29: Osmolality in good range. ICP controlled. Hypothermia to 34 degrees. Raise to 35 slowly as long as ICP is acceptable. Unable to start tube feeds yet as gut motility will be poor at cooler temperature. 04/30: ICP control good. Osmolality acceptable. Temp to 35 degrees. Objective Vital Signs Date Time Temp Pulse Resp B/P Pulse Ox O2 Delivery O2 Flow Rate FiO2 04/30/17 06:00 73 04/30/17 04:10 100 40 04/30/17 04:00 93.3 15 140/70 04/27/17 07:00 Mechanical Ventilator Intake and Output 04/29/17 04/29/17 04/30/17 08:00 16:00 00:00 Intake Total 1283 ml 1671 ml 1221 ml Output Total 300 ml 570 ml 1560 ml Balance 983 ml 1101 ml -339 ml Result Diagram: 04/30/17 0355 04/30/17 0355 Other Results Laboratory Tests Test 04/29/17 04/30/17 15:06 03:03 Blood Gas Puncture Site ART LINE ART LINE Blood Gas Patient Temperature 98.6 93.1 Blood Gas HCO3 17 mmol/L 21 mmol/L (22-26) (22-26) Blood Gas Base Excess -7.8 mmol/L -3.3 mmol/L (-2-2) (-2-2) Blood Gas Oxygen Saturation 95 % (90-100) 92 % (90-100) Arterial Blood pH 7.32 7.42 (7.380-7.420) (7.380-7.420) Arterial Blood Partial 34 mmHg (38-42) 32 mmHg (38-42) Pressure CO2 Arterial Blood Partial 89 mmHg 59 mmHg Pressure O2 (61-120) (61-120) Arterial Blood Oxygen Content 10.9 Vol % 11.4 Vol % (12.0-20.0) (12.0-20.0) Arterial Blood 1.0 % (0-4) 0.9 % (0-4) Carboxyhemoglobin Arterial Blood Methemoglobin 0.9 % (0-2) 1.1 % (0-2) Blood Gas Hemoglobin 8.1 G/DL 8.8 G/DL (12.0-16.0) (12.0-16.0) Oxygen Delivery Device VENTILATOR VENTILATOR Blood Gas Ventilator Setting PRVC/15/400/IT1.0/+5 COMMENT Blood Gas Inspired Oxygen 30 % 40 % Imaging Last Impressions Neck CTA 04/26/171315 Signed Impressions: Service Date/Time: Wednesday, April 26, 2017 13:39 - CONCLUSION: 1. Standard 3 vessel arch anatomy. 2. Widely patent carotid arteries. 3. Dominant left vertebral artery. Vertebral arteries are patent bilaterally. 4. 5 mm right thyroid nodule. This can be further evaluated with ultrasound on an outpatient basis. Cyrus Orozco MD Head CTA 04/26/176 Signed Impressions: Service Date/Time: Wednesday, April 26, 2017 13:39 - CONCLUSION: 1. Occlusion of the right M1 segment. Grossly intact mendoza-white matter differentiation with gross ASPECT score of 10/10. 2. Incidental finding of 5 mm right thyroid nodule. This can be further evaluated with ultrasound on an outpatient basis. Cyrus Orozco MD Head CT 04/26/17 0000 Signed Impressions: Service Date/Time: Wednesday, April 26, 2017 12:51 - CONCLUSION: Normal examination for a patient of this age. Jerry Torres MD Chest X-Ray 04/26/17 0000 Signed Impressions: Service Date/Time: Wednesday, April 26, 2017 14:01 - CONCLUSION: No acute cardiopulmonary disease radiographically. Cyrus Orozco MD Objective Remarks gen: middle-aged female, heavily sedated for brain protection. heent: orally intubated. mild facial edema. neck: trachea midline. orally intubated. chest: scattered rhonchi, good air movement equal chest rise. not tachypneic cv: normal rate, regular rhythm. sinus by tele. no JVD. no m,r abd: soft, nontender, nondistended. no guarding. quiet. extr: no peripheral edema. distal pulses palpable, well perfused. neuro: RASS -5; Heavily sedated. Left pupil 2 mm, reacts. Right pupil 3 mm, reacts slowly. Otherwise unresponsive as expected. Temp 34 degrees A/P Assessment and Plan Assessment: 42yF with acute right M1 MCA CVA now s/p systemic TPA and currently in interventional radiology for mechanical thrombectomy. She is very critically ill at this time. Active Problems: Acute right M1 MCA CVA s/p systemic TPA and endovascular thrombectomy Dysarthria Left-sided hemiparesis Left-sided facial droop Plan: -- 3% saline -- SBP goals per my discussion with interventionalist will be 140 - 160 -- phenylephrine and levophed will be used prn to achieve these goals. -- Serial osmo, Na -- interval head CT when more stable -- nursing bedside swallow eval before advancing diet, hold while cool -- OK for ASA, hold anticoagulation -- SCDs -- pepcid iv for gi prophylaxis -- EtCO2 26 - 33 --Core cooling to 35 --Stay with concentrated osmo. --Seizure prophylaxis with Keppra --PEEP to 8. --Lasix 20 X 1. Overall impression: Large distribution right MCA CVA with shift required decompressive craniectomy 04/27 in an attempt to rescue the dominant hemisphere. She is critically ill with an unstable neurological process and considerable cerebral edema. We have induced hypothermia for protection of the perfused brain and will raise temp to 35 today. Scalp tension right side is decreasing, ICP control acceptable. Swelling has hopefully peaked. Critical Care 48 mins Anthony Garcia MD Apr 30, 2017 06:35
[2017-04-30] MEDS: CHLORHEXIDINE 0.12% (ORAL KIT) 15 ML CUP MT SCH ×2 (07:50→20:00)
[2017-04-30] MEDS: FUROSEMIDE 20 MG/2 ML VIAL IV PUSH SCH ×2 (07:50→08:18)
[2017-04-30] MEDS ORDERED: SODIUM CHLOR 0.9% IV ONE (08:00)
[2017-04-30] MEDS ORDERED: POTASSIUM PHOSPHATE IV ONE (08:00)
[2017-04-30] MEDS: PANTOPRAZOLE SODIUM 40 MG VIAL IV SCH (08:17)
[2017-04-30] MEDS: DOCUSATE SODIUM 50 MG/SENNA 8.6 MG TAB PO SCH ×2 (08:17→20:04)
[2017-04-30] MEDS: levETIRAcetam INJ 500 MG in SODIUM CHLORIDE 0.9% INJ 100 ML IV SCH ×2 (08:17→20:04)
[2017-04-30] MEDS: ARTIFICIAL TEARS OPTH OINT 3.5 APPLIC/3.5 GM TUBO EACH EYE SCH ×2 (08:17→20:04)
[2017-04-30] MEDS: DOCUSATE SODIUM 100 MG CAP PO SCH ×2 (08:17→20:04)
[2017-04-30] MEDS: ASPIRIN 300 MG SUPP RECTAL SCH (08:17)
[2017-04-30] MEDS: NOREPINEPHRINE INJ 16 MG in SODIUM CHLOR 0.9% 250 ML INJ 234 ML IV SCH ×2 (08:44→21:59)
[2017-04-30] MEDS ORDERED: ICU - POTASSIUM PHOSPHATE 30 MMOL/NS 250 ML IV PRN ×2 (09:00)
[2017-04-30 11:35] LABS: BICARBONATE 28.5 MEQ/L (21.0-32.0); POTASSIUM 3.9 MEQ/L (3.5-5.1)
[2017-04-30] MEDS: BISACODYL 10 MG SUPP RECTAL PRN (11:51)
[2017-04-30] MEDS: SODIUM BICARBONATE 8.4% INJ 150 MEQ in WATER STERILE FOR INJ 850 ML IV SCH ×2 (12:32→18:00)
--- NOTE | 2017-04-30 12:47 | HHI.NSPN ---
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 Her MRI showed midline shift and was taken for emergent right decompressive craniectomy 04/27/17 with placement of ICP monitor. 04/28: pt seen this am during rounds: ICPs became elevated last evening and early this morning in the mid 20's. pt started on Versed drip with bolus of 23%. On Mannitol and 3% NS. ICPs now 11-14. Critical care aware will be initiating code cool. Unstable for repeat CT Head this am. 04/29: intubated and well sedated, hypothermic therapy. ICPs improved and stable overnight. 04/30: ICPs in the high teens. On max sedation. Elevated serums os and sodium levels. Increasing vent rate to decrease pCO2. Started rewarming. (Sakina Israel) Labs, Micro, & Vital Signs Results Date Time Temp Pulse Resp B/P Pulse Ox O2 Delivery O2 Flow Rate FiO2 04/30/17 12:10 97 30 04/30/17 12:00 95.0 90 17 146/69 97 04/30/17 08:43 99 30 04/30/17 08:40 99 40 04/30/17 08:00 73 04/30/17 08:00 40 04/30/17 08:00 94.0 73 15 144/71 99 04/30/17 06:00 73 04/30/17 04:10 100 40 04/30/17 04:00 93.3 70 15 140/70 100 04/30/17 04:00 40 04/30/17 04:00 70 04/30/17 02:00 65 04/30/17 00:39 100 40 04/30/17 00:00 40 04/30/17 00:00 93.3 64 15 156/81 100 04/30/17 00:00 64 04/29/17 22:00 63 04/29/17 21:42 100 40 04/29/17 20:00 93.3 66 15 144/68 100 04/29/17 20:00 66 04/29/17 20:00 40 04/29/17 18:00 72 04/29/17 16:00 40 04/29/17 16:00 75 04/29/17 16:00 100 40 04/29/17 16:00 93.7 75 15 147/93 100 04/29/17 14:00 76 04/30/17 07:00 Intake Total 4304 ml Output Total 3035 ml Balance 1269 ml Constitutional Vital Signs Date Time Temp Pulse Resp B/P Pulse Ox O2 Delivery O2 Flow Rate FiO2 04/30/17 12:10 97 30 04/30/17 12:00 95.0 90 17 146/69 97 04/30/17 08:43 99 30 04/30/17 08:40 99 40 04/30/17 08:00 73 04/30/17 08:00 40 04/30/17 08:00 94.0 73 15 144/71 99 04/30/17 06:00 73 04/30/17 04:10 100 40 04/30/17 04:00 93.3 70 15 140/70 100 04/30/17 04:00 40 04/30/17 04:00 70 04/30/17 02:00 65 04/30/17 00:39 100 40 04/30/17 00:00 40 04/30/17 00:00 93.3 64 15 156/81 100 04/30/17 00:00 64 04/29/17 22:00 63 04/29/17 21:42 100 40 04/29/17 20:00 93.3 66 15 144/68 100 04/29/17 20:00 66 04/29/17 20:00 40 04/29/17 18:00 72 04/29/17 16:00 40 04/29/17 16:00 75 04/29/17 16:00 100 40 04/29/17 16:00 93.7 75 15 147/93 100 04/29/17 14:00 76 04/30/17 07:00 Intake Total 4304 ml Output Total 3035 ml Balance 1269 ml (Sakina Israel) Review of Systems/Exam Exam Ms. [place] is intubated and currently well sedated on multiple sedatives. Right flap full and tight. ICPs currently 18-19 Facial swelling improving. Cranial Nerves: Left pupil 2. Right pupil 4 b/l nonreactive. Conjugate gaze. Motor: No response, very well sedated Bilateral plantar response silent. (Sakina Israel) Medications Current Medications Current Medications Medications (Trade) Dose Ordered Sig/Elida Route PRN Reason Start Time Stop Time Status Last Admin Dose Admin Magnesium Oxide 800 mg 800 mg UNSCH PRN PO For Magnesium 1.2 - 1.6 mg/dL 04/26/17 14:15 Magnesium Sulfate 4 gm/Sodium Chloride 100 ml @ 50 mls/hr UNSCH PRN IV For Magnesium 0.9 - 1.1 mg/dL 04/26/17 14:15 Magnesium Sulfate 2 gm/Sodium Chloride 100 ml @ 50 mls/hr UNSCH PRN IV For Magnesium 1.2 - 1.6 mg/dL 04/26/17 14:15 Potassium Chloride 100 ml @ 50 mls/hr Q2H PRN IV For Potassium 2.8 - 3.2 mEq/L 04/26/17 14:15 Potassium Chloride 100 ml @ 50 mls/hr Q2H PRN IV For Potassium 3.3 - 3.5 mEq/L 04/26/17 14:15 04/27/17 13:31 Potassium Chloride 100 ml @ 50 mls/hr Q2H PRN IV For Potassium 2.8 - 3.2 mEq/L 04/26/17 14:15 04/30/17 01:53 Potassium Chloride (KCl 40 Meq Premix Inj) 100 ml @ 25 mls/hr UNSCH PRN IV For Potassium 3.3 - 3.5 mEq/L 04/26/17 14:15 04/29/17 06:28 Potassium Phosphate (K-Phos) 2,000 mg Q4H PRN PO For Phosphorus < 2.5 mg/dL 04/26/17 14:15 04/28/17 05:25 Potassium Phosphate 2000 mg 2,000 mg UNSCH PRN PO/TUBE SEE LABEL COMMENTS 04/26/17 14:15 Sodium Phosphate/ Sodium Chloride (Sodium Phosphate Inj/NS 250 ml Inj) 250 ml @ 42 mls/hr UNSCH PRN IV For Phosphorus < 2.5 mg/dL 04/26/17 14:15 04/29/17 18:52 Dextrose (D50w (Vial) Inj) 25 ml UNSCH PRN IV PUSH HYPOGLYCEMIA-SEE COMMENTS 04/26/17 14:15 Pantoprazole Sodium (Protonix Inj) 40 mg DAILY IV 04/27/17 09:00 04/30/17 08:17 Ondansetron HCl (Zofran Inj) 4 mg Q6H PRN IV NAUSEA OR VOMITING 04/26/17 14:15 Miscellaneous Information 1 Q361D XX 04/26/17 14:15 Chlorhexidine Gluconate (Chlorhexidine 2% Cloth) 3 pack Taper DAILY@04 TOP 04/27/17 04:00 04/23/18 03:59 04/30/17 04:00 Chlorhexidine Gluconate (Chlorhexidine 2% Cloth) 3 pack UNSCH PRN TOP HYGIENIC CARE 04/26/17 14:15 Senna/Docusate Sodium 1 tab 1 tab BID PO 04/26/17 21:00 04/30/17 08:17 Phenylephrine HCl 40 mg/Sodium Chloride 504 ml @ 0 mls/hr TITRATE IV 04/26/17 16:30 04/30/17 05:26 Nicardipine HCl/ Sodium Chloride (Cardene Inj/NS 250 ml Inj) 260 ml @ 0 mls/hr TITRATE IV 04/26/17 15:30 Labetalol HCl (Trandate Inj) 20 mg Q15M PRN IV PUSH sbp > 160 04/26/17 15:30 Hydralazine HCl 10 mg 10 mg Q30M PRN IV PUSH sbp > 160 04/26/17 15:30 Fentanyl Citrate 250 ml @ 0 mls/hr TITRATE IV 04/26/17 21:45 04/30/17 00:00 Propofol 100 ml @ 0 mls/hr TITRATE IV 04/26/17 22:00 04/30/17 10:59 Sodium Chloride 500 ml @ 10 mls/hr Q16H IV 04/27/17 07:45 04/29/17 08:13 Levetriacetam/ Sodium Chloride (Keppra Inj/NS Inj) 105 ml @ 400 mls/hr Q12H IV 04/27/17 21:00 04/30/17 08:17 Bisacodyl (Dulcolax Supp) 10 mg DAILY PRN RECTAL CONSTIPATION 04/27/17 10:30 04/30/17 11:51 Docusate Sodium (Colace) 100 mg BID PO 04/27/17 21:00 04/30/17 08:17 Calcium Gluconate 1 gm 1 gm UNSCH PRN IV SEE LABEL COMMENTS 04/27/17 10:30 04/27/17 13:32 Potassium Chloride 100 ml @ 50 mls/hr UNSCH PRN IV POTASSIUM LESS THAN 4 04/27/17 10:30 Magnesium Sulfate/ Sodium Chloride (Magnesium Sulfate Inj/NS Inj) 108 ml @ 108 mls/hr UNSCH PRN IV MAGNESIUM LESS THAN 2 04/27/17 10:30 04/30/17 00:38 Acetaminophen/ Hydrocodone Bitart ([place] 10-325 Mg) 1 tab Q4H PRN PO PAIN SCALE 1 TO 5 04/27/17 10:30 Acetaminophen/ Hydrocodone Bitart ([place] 10-325 Mg) 2 tab Q4H PRN PO PAIN SCALE 6 TO 10 04/27/17 10:30 04/28/17 01:15 Morphine Sulfate (Morphine Inj) 2 mg Q2H PRN IV PUSH PAIN SCALE 1 TO 6 04/27/17 10:30 Morphine Sulfate (Morphine Inj) 4 mg Q2H PRN IV PUSH PAIN SCALE 7 TO 10 04/27/17 10:30 04/28/17 06:30 Acetaminophen (Tylenol) 650 mg Q4HR PRN PO TEMPERATURE > 100.0 F 04/27/17 10:30 Chlorhexidine Gluconate (Peridex 0.12% Liq) 15 ml BID@08,20 MT 04/27/17 20:00 04/30/17 07:50 Aspirin (Aspirin Supp) 300 mg DAILY RECTAL 04/27/17 16:15 04/30/17 08:17 Fentanyl Citrate 100 mcg 100 mcg Q1H PRN IV PUSH SEE LABEL COMMENTS 04/28/17 02:00 04/28/17 08:02 Midazolam HCl (Versed Inj) 100 ml @ 0 mls/hr TITRATE IV 04/28/17 07:00 04/30/17 04:43 Acetaminophen (Ofirmev Inj) 1,000 mg Q6H PRN IV Temp > 101. 04/28/17 08:15 Artificial Tears (Lacrilube Opht Oint) APPLY UNDER BOTH EYELIDS BID EACH EYE 04/28/17 21:00 04/30/17 08:17 Lorazepam 1 mg 1 mg Q1H PRN IV SEIZURES 04/28/17 11:15 Miscellaneous Information ml @ 0 mls/hr UNSCH IV 04/28/17 11:15 Sodium Chloride (NS Flush) 2 ml UNSCH PRN IV FLUSH SEE LABEL COMMENTS 04/28/17 11:15 04/29/17 08:14 Sodium Chloride (NS Flush) 2 ml UNSCH PRN IV FLUSH IV FLUSH 04/28/17 11:15 Meperidine HCl (Demerol Inj) 25 mg Q2H PRN IV PUSH SHIVERING 04/28/17 11:15 Artificial Tears (Lacrilube Opht Oint) 1 applic Q4H PRN EACH EYE SEE LABEL COMMENTS 04/28/17 11:15 04/28/17 19:48 Terbutaline Sulfate 1 mg 1 mg UNSCH PRN SQ For Extravasation 04/28/17 11:45 Norepinephrine Bitartrate 16 mg/ Sodium Chloride 250 ml @ 0 mls/hr TITRATE IV 04/29/17 15:30 04/30/17 08:44 Sodium Bicarbonate/ Sterile Water (Sodium Bicarbonate 8.4% Inj/Sterile Water For Inj) 1,000 ml @ 50 mls/hr Q20H IV 04/29/17 18:00 04/30/17 12:32 Furosemide 20 mg 20 mg DAILY IV PUSH 04/30/17 06:45 04/30/17 08:18 Potassium Phosphate/Sodium Chloride (Potassium Phosphate Inj/NS 250 ml Inj) 260 ml @ 43.333 mls/ hr UNSCH PRN IV ELECTROLYTE REPLACEMENT 04/30/17 09:00 (Sakina Israel) Medical Decision Making MDM Remarks 42 year old female with large right hemispheric CVA with mass effect and midline shift, s/p right decompressive craniectomy with placement of ICP monitor 04/27/17 hypothermic therapy, rewarming (Sakina Israel) Plan Plan Remarks cont keep well sedated cont close ICP monitoring f/u serum os and sodium levels for hyperosmotic tx critical care mgt - hypothermic tx cont serial neuro checks dw fiance in room (Sakina Israel) Attending Statement The exam, history, and the medical decision-making described in the above note were completed with the assistance of the mid-level provider. I reviewed and agree with the findings presented. I attest that I had a [id number] encounter with the patient on the same day, and personally performed and documented my assessment and findings in the medical record. (Garry Nathan MD) Sakina Israel Apr 30, 2017 12:47 Garry Nathan MD Apr 30, 2017 20:26
[2017-04-30] MEDS: fentaNYL DRIP 250 ML IV SCH ×3 (14:22→23:31)
[2017-04-30 14:59] LABS: BLOOD GAS BASE EXCESS -0.4 mmol/L (-2-2); BLOOD GAS CARBOXYHEMOGLOBIN 0.9 % (0-4); BLOOD GAS HCO3 24 mmol/L (22-26); BLOOD GAS METHEMOGLOBIN 0.9 % (0-2); BLOOD GAS O2 HGB SATURATION 90 % (90-100); BLOOD GAS OXYGEN CONTENT 13.3 Vol % (12.0-20.0); BLOOD GAS PCO2 42 mmHg (38-42); BLOOD GAS PO2 66 mmHg (61-120); BLOOD GAS TOTAL HGB 10.5 G/DL (12.0-16.0); CRITICAL VALUE NO; FIO2 30 %; OXYGEN DEVICE VENTILATOR; TEMP CORR TO 98.6; VENT SETTINGS PRVC 17/400/1.0IT/8+
[2017-04-30 15:00] LABS: DRAW SITE ART LINE; STAT NO
[2017-04-30] MEDS: 3% SALINE INJ 500 ML IV SCH (15:45)
[2017-04-30 18:08] LABS: BICARBONATE 25.2 MEQ/L (21.0-32.0); MAGNESIUM 1.9 MG/DL (1.5-2.5); POTASSIUM 3.4 MEQ/L (3.5-5.1)
[2017-04-30] MEDS ORDERED: MAGNESIUM SULFATE 1 GM PREMIX 100 ML ONE (18:26)
[2017-04-30 18:42] LABS: CALCIUM-PROTEIN CORRECTED 8.2 MG/DL (8.5-10.1)
[2017-04-30] MEDS: CALCIUM GLUCONATE 10% 1 GM/10 ML VIAL IV PRN (19:04)
[2017-04-30 21:28] LABS: BLOOD GAS BASE EXCESS -3.6 mmol/L (-2-2); BLOOD GAS CARBOXYHEMOGLOBIN 1.2 % (0-4); BLOOD GAS HCO3 19 mmol/L (22-26); BLOOD GAS O2 HGB SATURATION 95 % (90-100); BLOOD GAS OXYGEN CONTENT 16.1 Vol % (12.0-20.0); BLOOD GAS PCO2 26 mmHg (38-42); BLOOD GAS PO2 92 mmHg (61-120); CRITICAL VALUE NO; OXYGEN DEVICE VENT; TEMP CORR TO 98.6
[2017-04-30 21:29] LABS: DRAW SITE ALINE; FIO2 30 %; STAT NO; ULNAR PULSE PRESENT; VENT SETTINGS SEE COMMENTS
[2017-04-30] MEDS ORDERED: SODIUM CHLORIDE 23.4% INJ 120 MEQ in SYRINGE/BAG 1 EA IV ONE (22:30)
[2017-04-30 22:48] LABS: BLOOD GAS BASE EXCESS -3.4 mmol/L (-2-2); BLOOD GAS CARBOXYHEMOGLOBIN 1.1 % (0-4); BLOOD GAS HCO3 21 mmol/L (22-26); BLOOD GAS O2 HGB SATURATION 93 % (90-100); BLOOD GAS OXYGEN CONTENT 14.9 Vol % (12.0-20.0); BLOOD GAS PCO2 33 mmHg (38-42); BLOOD GAS PO2 79 mmHg (61-120); BLOOD GAS TOTAL HGB 11.3 G/DL (12.0-16.0); TEMP CORR TO 98.6
[2017-04-30 22:49] LABS: CRITICAL VALUE NO; DRAW SITE ALINE; FIO2 30 %; OXYGEN DEVICE PRVC18/400/1.0/+8; STAT NO; ULNAR PULSE PRESENT
[2017-05-01] VITALS (18 sets, daily range): BP systolic 141–151; BP diastolic 68–76; PULSE 61–90; RESP 18–23; TEMP 95–96.8; O2SAT 98–100
[2017-05-01 00:29] LABS: BICARBONATE 23.7 MEQ/L (21.0-32.0); POTASSIUM 4.3 MEQ/L (3.5-5.1)
[2017-05-01] MEDS: MIDAZOLAM 100 MG/NS 100 ML DRIP Premix IV SCH ×3 (01:00→19:48)
[2017-05-01] MEDS: INSULIN NovoLIN REGULAR SUPPLEMENTAL SCALE SQ SCH ×5 (03:00→21:00)
[2017-05-01] MEDS: CHLORHEXIDINE GLUCONATE 2 % 1 PACK (2 CLOTHS) TOP SCH (03:36)
[2017-05-01 04:20] LABS: HEMATOCRIT 24.3 % (35.0-46.0); MEAN CELL VOLUME 93.9 FL (80.0-100.0); MEAN CORPUSCULAR HEMOGLOBIN 31.7 PG (27.0-34.0); MEAN CORPUSCULAR HGB CONC 33.8 % (32.0-36.0); PLATELET COUNT 111 TH/MM3 (150-450); RED BLOOD COUNT 2.59 MIL/MM3 (4.00-5.30); RED CELL DISTRIBUTION WIDTH 13.7 % (11.6-17.2); REVIEW FLAG FINAL; WHITE BLOOD COUNT 8.4 TH/MM3 (4.0-11.0)
[2017-05-01 04:39] LABS: BICARBONATE 25.2 MEQ/L (21.0-32.0); POTASSIUM 4.1 MEQ/L (3.5-5.1)
[2017-05-01 05:02] LABS: BLOOD GAS BASE EXCESS -4.7 mmol/L (-2-2); BLOOD GAS CARBOXYHEMOGLOBIN 1.4 % (0-4); BLOOD GAS HCO3 20 mmol/L (22-26); BLOOD GAS O2 HGB SATURATION 91 % (90-100); BLOOD GAS OXYGEN CONTENT 12.8 Vol % (12.0-20.0); BLOOD GAS PCO2 35 mmHg (38-42); BLOOD GAS PO2 73 mmHg (61-120); BLOOD GAS TOTAL HGB 9.9 G/DL (12.0-16.0); TEMP CORR TO 98.6
[2017-05-01 05:03] LABS: CRITICAL VALUE NO
[2017-05-01 05:04] LABS: OXYGEN DEVICE VENT
[2017-05-01 05:05] LABS: DRAW SITE ALINE; FIO2 30 %; STAT NO; ULNAR PULSE PRESENT; VENT SETTINGS SEE COMMENTS
[2017-05-01 05:09] LABS: CALCIUM-PROTEIN CORRECTED 8.6 MG/DL (8.5-10.1)
[2017-05-01] MEDS: PROPOFOL 1000 MG/100 ML IV SCH ×5 (05:30→19:49)
[2017-05-01] MEDS: ALBUMIN HUMAN 5% 25 GM/500 ML BOTTLE IV SCH ×2 (05:34→17:44)
--- NOTE | 2017-05-01 05:41 | RADRPT ---
EXAM DATE/TIME: 05/01/2017 04:53 [place] COMPARISON: CHEST SINGLE AP, April 27, 2017, 7:10. INDICATIONS : Shortness of breath. MEDICAL HISTORY : None. SURGICAL HISTORY : None. ENCOUNTER: Subsequent ACUITY: 4 - 6 days PAIN SCORE: Non-responsive. LOCATION: Bilateral chest FINDINGS: Lines and tubes are present not significantly changed. There is significant bilateral mainly air spac e process in mid and lower lung oquendo not present previously. Heart and mediastinum are unremarkable for technique. CONCLUSION: Interval development of bilateral air space process. Ct Serrano MD on May 01, 2017 at 5:39 Board Certified Radiologist. This report was verified electronically.
--- NOTE | 2017-05-01 06:38 | HHI.CCPN ---
Subjective Remarks/Hospital Course This is a 42yF with unremarkable past medical history who presents to the [facility] emergency department with new-onset left-sided weakness and slurred speech. She is an employee of [employer] who had a witnessed onset of her symptoms at 12:45pm. In the [facility] ED she was immediately taken for non-contrasted head CT which was negative for acute hemorrhage. She was given iv tpa which was instituted 36 minutes after arrival, per my conversation with the international guest coordinator. She was then emergently transferred to [facility]. CT angiography demonstrated acute right m1 cut-off. She was taken by [facility] and arrived directly to the IR suite, where I met and evaluated the patient. Due to the acute nature of her illness and her dysarthria, a complete history is not obtainable. She does endorse right-sided headache, although denied any chest pain, shortness of breath. 04/27: Back from OR after right craniectomy for decompression s/p left MCA CVA. Heavily sedated. Some new history from a co-worker indicates that patient started taking oral contraceptive 2 months ago. 04/28: Continued problems with cerebral edema as expected. Push osmolality a little higher and restrict fluid. Tolerate pH mildly acidotic to avoid cerebral vascular constriction. 04/29: Osmolality in good range. ICP controlled. Hypothermia to 34 degrees. Raise to 35 slowly as long as ICP is acceptable. Unable to start tube feeds yet as gut motility will be poor at cooler temperature. 04/30: ICP control good. Osmolality acceptable. Temp to 35 degrees. 05/01: Raise temp to 36 degrees and hold. CXR with light basilar infiltrates, no leukocytosis. Heavily sedated for brain protection/ICP control. Persistent blood sugars 60s range - will start D5/NS at 30/hr. Objective Vital Signs Date Time Temp Pulse Resp B/P Pulse Ox O2 Delivery O2 Flow Rate FiO2 05/01/17 06:00 80 05/01/17 05:16 100 40 05/01/17 04:00 95.0 18 145/69 04/27/17 07:00 Mechanical Ventilator Intake and Output 04/30/17 04/30/17 04/30/17 07:59 15:59 23:59 Intake Total 1412 ml 1733 ml 1877 ml Output Total 905 ml 2225 ml 915 ml Balance 507 ml -492 ml 962 ml Result Diagram: 05/01/17 0350 05/01/17 0350 Other Results Laboratory Tests Test 04/30/17 04/30/17 04/30/17 05/01/17 14:55 21:14 22:40 04:50 Blood Gas Puncture Site ART LINE MELVINA HEIN Blood Gas Patient Temperature 98.6 98.6 98.6 98.6 Blood Gas HCO3 24 mmol/L 19 mmol/L 21 mmol/L 20 mmol/L (22-26) (22-26) (22-26) (22-26) Blood Gas Base Excess -0.4 mmol/L -3.6 mmol/L -3.4 mmol/L -4.7 mmol/L (-2-2) (-2-2) (-2-2) (-2-2) Blood Gas Oxygen Saturation 90 % (90-100) 95 % (90-100) 93 % (90-100) 91 % (90- 100) Arterial Blood pH 7.38 7.48 7.41 7.37 (7.380-7.420) (7.380-7.420) (7.380-7.420) (7.380-7.420) Arterial Blood Partial 42 mmHg (38-42) 26 mmHg (38-42) 33 mmHg (38-42) 35 mmHg ( 38-42) Pressure CO2 Arterial Blood Partial 66 mmHg 92 mmHg 79 mmHg 73 mmHg Pressure O2 (61-120) (61-120) (61-120) (61-120) Arterial Blood Oxygen Content 13.3 Vol % 16.1 Vol % 14.9 Vol % 12.8 Vol % (12.0-20.0) (12.0-20.0) (12.0-20.0) (12.0-20.0) Arterial Blood 0.9 % (0-4) 1.2 % (0-4) 1.1 % (0-4) 1.4 % (0-4) Carboxyhemoglobin Arterial Blood Methemoglobin 0.9 % (0-2) 1.0 % (0-2) 1.0 % (0-2) 1.0 % (0-2) Blood Gas Hemoglobin 10.5 G/DL 12.0 G/DL 11.3 G/DL 9.9 G/DL (12.0-16.0) (12.0-16.0) (12.0-16.0) (12.0-16.0) Oxygen Delivery Device VENTILATOR VENT PRVC18/400/1.0/+8 VENT Blood Gas Ventilator Setting PRVC SEE COMMENTS SEE COMMENTS 400/1.0IT/8+ Blood Gas Inspired Oxygen 30 % 30 % 30 % 30 % Imaging Last Impressions Neck CTA 04/26/17 1316 Signed Impressions: Service Date/Time: Wednesday, April 26, 2017 13:39 - CONCLUSION: 1. Standard 3 vessel arch anatomy. 2. Widely patent carotid arteries. 3. Dominant left vertebral artery. Vertebral arteries are patent bilaterally. 4. 5 mm right thyroid nodule. This can be further evaluated with ultrasound on an outpatient basis. Cyrus Orozco MD Head CTA 04/26/17 1316 Signed Impressions: Service Date/Time: Wednesday, April 26, 2017 13:39 - CONCLUSION: 1. Occlusion of the right M1 segment. Grossly intact mendoza-white matter differentiation with gross ASPECT score of 10/10. 2. Incidental finding of 5 mm right thyroid nodule. This can be further evaluated with ultrasound on an outpatient basis. Cyrus Orozco MD Head CT 04/26/17 0000 Signed Impressions: Service Date/Time: Wednesday, April 26, 2017 12:51 - CONCLUSION: Normal examination for a patient of this age. Jerry Torres MD Chest X-Ray 04/26/17 0000 Signed Impressions: Service Date/Time: Wednesday, April 26, 2017 14:01 - CONCLUSION: No acute cardiopulmonary disease radiographically. Cyrus Orozco MD Objective Remarks gen: middle-aged female, heavily sedated for brain protection. heent: mild facial edema resolving. neck: trachea midline. orally intubated. chest: few rhonchi, good air movement equal chest rise. PCO2 control good. cv: normal rate, regular rhythm. sinus by tele. no JVD. no m,r abd: soft, nontender, nondistended. no guarding. quiet. extr: no peripheral edema. distal pulses palpable, well perfused. neuro: RASS -5; Heavily sedated. Left pupil 2 mm, reacts. Right pupil 3 mm, reacts. Otherwise unresponsive as expected. Temp 35 degrees A/P Assessment and Plan Assessment: 42yF with acute right M1 MCA CVA now s/p systemic TPA and currently in interventional radiology for mechanical thrombectomy. She is very critically ill at this time. Active Problems: Acute right M1 MCA CVA s/p systemic TPA and endovascular thrombectomy Dysarthria Left-sided hemiparesis Left-sided facial droop Plan: -- 3% saline, keep osmo 310 - 320 for first few days, follow ICP -- SBP goals per my discussion with interventionalist will be 140 - 160 -- phenylephrine and levophed will be used prn to achieve these goals. -- Serial osmo, Na -- interval head CT when more stable -- nursing bedside swallow eval before advancing diet, hold while cool -- OK for ASA, hold anticoagulation -- SCDs -- pepcid iv for gi prophylaxis -- EtCO2 26 - 33 --Core cooling to 35 --Stay with concentrated osmo. --Seizure prophylaxis with Keppra --PEEP to 8. --Lasix 20 mg daily --Start trickle feeds --Add reglan. Hypoglycemia -- Start D5/NS at 30/hr. Titrate to keep glucose > 90. Overall impression: Large distribution right MCA CVA with shift required decompressive craniectomy 04/27 in an attempt to rescue the dominant hemisphere. She is critically ill with an unstable neurological process and considerable cerebral edema. We have induced hypothermia for protection of the perfused brain and will raise temp to 36 today. Scalp tension right side is decreasing, ICP control acceptable. Swelling has hopefully peaked; watch carefully during slow rewarming. Plan rewarming to 37 and hold tuesday, then d/c cooling catheter. Move a-line to wrist. (Both radial a-lines lasted only 12 hours each.) Start to lighten sedation starting tuesday if OK with Dr. Nathan. Critical Care 42 mins Anthony Garcia MD May 01, 2017 06:38
[2017-05-01] MEDS: 3% SALINE INJ 500 ML IV SCH ×2 (07:45→21:09)
[2017-05-01] MEDS: CHLORHEXIDINE 0.12% (ORAL KIT) 15 ML CUP MT SCH ×2 (08:00→19:48)
[2017-05-01] MEDS: BISACODYL 10 MG SUPP RECTAL PRN (08:29)
[2017-05-01] MEDS: DOCUSATE SODIUM 50 MG/SENNA 8.6 MG TAB PO SCH ×2 (08:29→19:49)
[2017-05-01] MEDS: DOCUSATE SODIUM 100 MG CAP PO SCH ×2 (08:29→19:49)
[2017-05-01] MEDS: ARTIFICIAL TEARS OPTH OINT 3.5 APPLIC/3.5 GM TUBO EACH EYE SCH ×2 (08:30→20:01)
[2017-05-01] MEDS: FUROSEMIDE 20 MG/2 ML VIAL IV PUSH SCH (08:30)
[2017-05-01] MEDS: PANTOPRAZOLE SODIUM 40 MG VIAL IV SCH (08:30)
[2017-05-01] MEDS: levETIRAcetam INJ 500 MG in SODIUM CHLORIDE 0.9% INJ 100 ML IV SCH ×2 (08:30→19:48)
[2017-05-01] MEDS: ASPIRIN 300 MG SUPP RECTAL SCH (08:30)
[2017-05-01] MEDS: METOCLOPRAMIDE HCL 10 MG/2 ML VIAL IV PUSH SCH ×2 (08:30→16:23)
[2017-05-01] MEDS: DEXTROSE 50% IN WATER 50 ML VIAL(D50) IV PUSH PRN ×4 (08:38→16:54)
[2017-05-01] MEDS: fentaNYL DRIP 250 ML IV SCH ×3 (09:07→19:48)
[2017-05-01] MEDS: PHENYLEPHRINE INJ 40 MG in SODIUM CHLORID 0.9% 500 ML INJ 500 ML IV SCH (10:00)
[2017-05-01 11:41] LABS: BICARBONATE 24.6 MEQ/L (21.0-32.0); POTASSIUM 3.9 MEQ/L (3.5-5.1)
[2017-05-01] MEDS: NOREPINEPHRINE INJ 16 MG in SODIUM CHLOR 0.9% 250 ML INJ 234 ML IV SCH ×2 (12:35→22:35)
--- NOTE | 2017-05-01 12:45 | HHI.NSPN ---
(Sakina Isreal) Note Status Status: Progress Note (Sakina Israel) Interval History Interval History 42 y/o male suffered ischemic CVA, s/p tPA. Her MRI showed midline shift and was taken for emergent right decompressive craniectomy 04/27/17 with placement of ICP monitor. 04/28: pt seen this am during rounds: ICPs became elevated last evening and early this morning in the mid 20's. pt started on Versed drip with bolus of 23%. On Mannitol and 3% NS. ICPs now 11-14. Critical care aware will be initiating code cool. Unstable for repeat CT Head this am. 04/29: intubated and well sedated, hypothermic therapy. ICPs improved and stable overnight. 04/30: ICPs in the high teens. On max sedation. Elevated serums os and sodium levels. Increasing vent rate to decrease pCO2. 05/01: slowly being rewarmed. ICPs high teens but stable. remains well sedated. (Sakina Israel) Labs, Micro, & Vital Signs Results Date Time Temp Pulse Resp B/P Pulse Ox O2 Delivery O2 Flow Rate FiO2 05/01/17 12:00 90 05/01/17 12:00 96.8 90 20 141/68 100 05/01/17 10:47 100 40 05/01/17 08:00 86 05/01/17 08:00 95.0 86 18 151/76 100 05/01/17 08:00 40 05/01/17 07:48 100 40 05/01/17 06:00 80 05/01/17 05:16 100 40 05/01/17 04:00 81 05/01/17 04:00 30 05/01/17 04:00 95.0 81 18 145/69 100 05/01/17 03:30 98 30 05/01/17 02:00 61 05/01/17 01:30 100 30 05/01/17 00:00 30 05/01/17 00:00 95.0 80 18 146/76 100 05/01/17 00:00 85 04/30/17 22:52 100 30 04/30/17 22:00 85 04/30/17 20:11 100 30 04/30/17 20:00 30 04/30/17 20:00 85 04/30/17 20:00 95.0 85 24 147/76 100 04/30/17 18:24 99 30 04/30/17 16:00 95.0 87 24 144/72 97 04/30/17 16:00 87 04/30/17 15:07 98 30 04/30/17 15:06 98 30 05/01/17 07:00 Intake Total 4427 ml Output Total 3340 ml Balance 1087 ml Constitutional Vital Signs Date Time Temp Pulse Resp B/P Pulse Ox O2 Delivery O2 Flow Rate FiO2 05/01/17 12:00 90 05/01/17 12:00 96.8 90 20 141/68 100 05/01/17 10:47 100 40 05/01/17 08:00 86 05/01/17 08:00 95.0 86 18 151/76 100 05/01/17 08:00 40 05/01/17 07:48 100 40 05/01/17 06:00 80 05/01/17 05:16 100 40 05/01/17 04:00 81 05/01/17 04:00 30 05/01/17 04:00 95.0 81 18 145/69 100 05/01/17 03:30 98 30 05/01/17 02:00 61 05/01/17 01:30 100 30 05/01/17 00:00 30 05/01/17 00:00 95.0 80 18 146/76 100 05/01/17 00:00 85 04/30/17 22:52 100 30 04/30/17 22:00 85 04/30/17 20:11 100 30 04/30/17 20:00 30 04/30/17 20:00 85 04/30/17 20:00 95.0 85 24 147/76 100 04/30/17 18:24 99 30 04/30/17 16:00 95.0 87 24 144/72 97 04/30/17 16:00 87 04/30/17 15:07 98 30 04/30/17 15:06 98 30 05/01/17 07:00 Intake Total 4427 ml Output Total 3340 ml Balance 1087 ml (Sakina Israel) Review of Systems/Exam Exam Ms. Toledo is intubated and currently well sedated on multiple sedatives. Right flap remains full and tight. ICPs 18 Facial swelling improving. Cranial Nerves: Left pupil 2. Right pupil 4 b/l nonreactive. Conjugate gaze. Motor: No response, very well sedated Bilateral plantar response silent. (Sakina Israel) Medications Current Medications Current Medications Medications (Trade) Dose Ordered Sig/Elida Route PRN Reason Start Time Stop Time Status Last Admin Dose Admin Magnesium Oxide 800 mg 800 mg UNSCH PRN PO For Magnesium 1.2 - 1.6 mg/dL 04/26/17 14:15 Magnesium Sulfate 4 gm/Sodium Chloride 100 ml @ 50 mls/hr UNSCH PRN IV For Magnesium 0.9 - 1.1 mg/dL 04/26/17 14:15 Magnesium Sulfate 2 gm/Sodium Chloride 100 ml @ 50 mls/hr UNSCH PRN IV For Magnesium 1.2 - 1.6 mg/dL 04/26/17 14:15 Potassium Chloride 100 ml @ 50 mls/hr Q2H PRN IV For Potassium 2.8 - 3.2 mEq/L 04/26/17 14:15 Potassium Chloride 100 ml @ 50 mls/hr Q2H PRN IV For Potassium 3.3 - 3.5 mEq/L 04/26/17 14:15 04/27/17 13:31 Potassium Chloride 100 ml @ 50 mls/hr Q2H PRN IV For Potassium 2.8 - 3.2 mEq/L 04/26/17 14:15 04/30/17 01:53 Potassium Chloride (KCl 40 Meq Premix Inj) 100 ml @ 25 mls/hr UNSCH PRN IV For Potassium 3.3 - 3.5 mEq/L 04/26/17 14:15 04/30/17 18:30 Potassium Phosphate (K-Phos) 2,000 mg Q4H PRN PO For Phosphorus < 2.5 mg/dL 04/26/17 14:15 04/28/17 05:25 Potassium Phosphate 2000 mg 2,000 mg UNSCH PRN PO/TUBE SEE LABEL COMMENTS 04/26/17 14:15 Sodium Phosphate/ Sodium Chloride (Sodium Phosphate Inj/NS 250 ml Inj) 250 ml @ 42 mls/hr UNSCH PRN IV For Phosphorus < 2.5 mg/dL 04/26/17 14:15 04/29/17 18:52 Dextrose (D50w (Vial) Inj) 25 ml UNSCH PRN IV PUSH HYPOGLYCEMIA-SEE COMMENTS 04/26/17 14:15 05/01/17 12:32 Pantoprazole Sodium (Protonix Inj) 40 mg DAILY IV 04/27/17 09:00 05/01/17 08:30 Ondansetron HCl (Zofran Inj) 4 mg Q6H PRN IV NAUSEA OR VOMITING 04/26/17 14:15 Miscellaneous Information 1 Q361D XX 04/26/17 14:15 Chlorhexidine Gluconate (Chlorhexidine 2% Cloth) 3 pack Taper DAILY@04 TOP 04/27/17 04:00 04/23/18 03:59 04/30/17 04:00 Chlorhexidine Gluconate (Chlorhexidine 2% Cloth) 3 pack UNSCH PRN TOP HYGIENIC CARE 04/26/17 14:15 Senna/Docusate Sodium 1 tab 1 tab BID PO 04/26/17 21:00 05/01/17 08:29 Phenylephrine HCl 40 mg/Sodium Chloride 504 ml @ 0 mls/hr TITRATE IV 04/26/17 16:30 05/01/17 10:00 Nicardipine HCl/ Sodium Chloride (Cardene Inj/NS 250 ml Inj) 260 ml @ 0 mls/hr TITRATE IV 04/26/17 15:30 Labetalol HCl (Trandate Inj) 20 mg Q15M PRN IV PUSH sbp > 160 04/26/17 15:30 Hydralazine HCl 10 mg 10 mg Q30M PRN IV PUSH sbp > 160 04/26/17 15:30 Fentanyl Citrate 250 ml @ 0 mls/hr TITRATE IV 04/26/17 21:45 05/01/17 09:07 Propofol 100 ml @ 0 mls/hr TITRATE IV 04/26/17 22:00 05/01/17 09:44 Sodium Chloride 500 ml @ 10 mls/hr Q16H IV 04/27/17 07:45 04/29/17 08:13 Levetriacetam/ Sodium Chloride (Keppra Inj/NS Inj) 105 ml @ 400 mls/hr Q12H IV 04/27/17 21:00 05/01/17 08:30 Bisacodyl (Dulcolax Supp) 10 mg DAILY PRN RECTAL CONSTIPATION 04/27/17 10:30 05/01/17 08:29 Docusate Sodium (Colace) 100 mg BID PO 04/27/17 21:00 05/01/17 08:29 Calcium Gluconate 1 gm 1 gm UNSCH PRN IV SEE LABEL COMMENTS 04/27/17 10:30 04/30/17 19:04 Potassium Chloride 100 ml @ 50 mls/hr UNSCH PRN IV POTASSIUM LESS THAN 4 04/27/17 10:30 Magnesium Sulfate/ Sodium Chloride (Magnesium Sulfate Inj/NS Inj) 108 ml @ 108 mls/hr UNSCH PRN IV MAGNESIUM LESS THAN 2 04/27/17 10:30 04/30/17 18:31 Acetaminophen/ Hydrocodone Bitart ([place] 10-325 Mg) 1 tab Q4H PRN PO PAIN SCALE 1 TO 5 04/27/17 10:30 Acetaminophen/ Hydrocodone Bitart ([place] 10-325 Mg) 2 tab Q4H PRN PO PAIN SCALE 6 TO 10 04/27/17 10:30 04/28/17 01:15 Morphine Sulfate (Morphine Inj) 2 mg Q2H PRN IV PUSH PAIN SCALE 1 TO 6 04/27/17 10:30 Morphine Sulfate (Morphine Inj) 4 mg Q2H PRN IV PUSH PAIN SCALE 7 TO 10 04/27/17 10:30 04/28/17 06:30 Acetaminophen (Tylenol) 650 mg Q4HR PRN PO TEMPERATURE > 100.0 F 04/27/17 10:30 Chlorhexidine Gluconate (Peridex 0.12% Liq) 15 ml BID@08,20 MT 04/27/17 20:00 05/01/17 08:00 Aspirin (Aspirin Supp) 300 mg DAILY RECTAL 04/27/17 16:15 05/01/17 08:30 Fentanyl Citrate 100 mcg 100 mcg Q1H PRN IV PUSH SEE LABEL COMMENTS 04/28/17 02:00 04/28/17 08:02 Midazolam HCl (Versed Inj) 100 ml @ 0 mls/hr TITRATE IV 04/28/17 07:00 05/01/17 05:34 Acetaminophen (Ofirmev Inj) 1,000 mg Q6H PRN IV Temp > 101. 04/28/17 08:15 Artificial Tears (Lacrilube Opht Oint) APPLY UNDER BOTH EYELIDS BID EACH EYE 04/28/17 21:00 05/01/17 08:30 Lorazepam 1 mg 1 mg Q1H PRN IV SEIZURES 04/28/17 11:15 Miscellaneous Information ml @ 0 mls/hr UNSCH IV 04/28/17 11:15 Sodium Chloride (NS Flush) 2 ml UNSCH PRN IV FLUSH SEE LABEL COMMENTS 04/28/17 11:15 04/29/17 08:14 Sodium Chloride (NS Flush) 2 ml UNSCH PRN IV FLUSH IV FLUSH 04/28/17 11:15 Meperidine HCl (Demerol Inj) 25 mg Q2H PRN IV PUSH SHIVERING 04/28/17 11:15 Artificial Tears (Lacrilube Opht Oint) 1 applic Q4H PRN EACH EYE SEE LABEL COMMENTS 04/28/17 11:15 04/28/17 19:48 Terbutaline Sulfate 1 mg 1 mg UNSCH PRN SQ For Extravasation 04/28/17 11:45 Norepinephrine Bitartrate/Sodium Chloride (Levophed Inj/NS 250 ml Inj) 250 ml @ 0 mls/hr TITRATE IV 04/29/17 15:30 05/01/17 12:35 Furosemide 20 mg 20 mg DAILY IV PUSH 04/30/17 06:45 05/01/17 08:30 Potassium Phosphate/Sodium Chloride (Potassium Phosphate Inj/NS 250 ml Inj) 260 ml @ 43.333 mls/ hr UNSCH PRN IV ELECTROLYTE REPLACEMENT 04/30/17 09:00 Albumin Human (Albumin 5% Inj) 25 gm Q12H IV 05/01/17 06:00 05/01/17 05:34 Metoclopramide HCl (Reglan Inj) 10 mg Q8H IV PUSH 05/01/17 08:00 05/01/17 08:30 (Sakina Israel) Medical Decision Making MDM Remarks 42 year old female with large right hemispheric CVA with mass effect and midline shift, s/p right decompressive craniectomy with placement of ICP monitor 04/27/17 hypothermic therapy, being rewarmed (Sakina Israel) Plan Plan Remarks cont keep well sedated cont ICP monitoring f/u serum os and sodium levels for hyperosmotic tx critical care mgt - hypothermic mgt, rewarming cont serial neuro checks dw fiance in room (Sakina Israel) Attending Statement The exam, history, and the medical decision-making described in the above note were completed with the assistance of the mid-level provider. I reviewed and agree with the findings presented. I attest that I had a [id number] encounter with the patient on the same day, and personally performed and documented my assessment and findings in the medical record. (Garry Nathan MD) Sakina Israel May 01, 2017 12:45 Garry Nathan MD May 01, 2017 18:32
[2017-05-01] MEDS: PHENYLEPHRINE INJ 160 MG in SODIUM CHLORID 0.9% 500 ML INJ 484 ML IV SCH ×2 (13:32→22:35)
[2017-05-01 13:35] LABS: BLOOD GAS BASE EXCESS -3.2 mmol/L (-2-2); BLOOD GAS CARBOXYHEMOGLOBIN 1.3 % (0-4); BLOOD GAS HCO3 21 mmol/L (22-26); BLOOD GAS METHEMOGLOBIN 1.3 % (0-2); BLOOD GAS O2 HGB SATURATION 91 % (90-100); BLOOD GAS OXYGEN CONTENT 9.9 Vol % (12.0-20.0); BLOOD GAS PCO2 36 mmHg (38-42); BLOOD GAS PO2 70 mmHg (61-120); BLOOD GAS TOTAL HGB 7.6 G/DL (12.0-16.0); CRITICAL VALUE NO; OXYGEN DEVICE VENTILATOR; TEMP CORR TO 98.6; VENT SETTINGS PRVC22/400/PEEP8IT1.
[2017-05-01 13:36] LABS: DRAW SITE ART LINE; FIO2 40 %; STAT NO
[2017-05-01] MEDS ORDERED: PHENYLEPHRINE HCL 160 MG/D5W 484 ML ADMIX IV SCH ×2 (15:00)
[2017-05-01] MEDS ORDERED: TERBUTALINE INJ 1 MG/ML AMP SQ PRN (15:00)
[2017-05-01] MEDS ORDERED: DEXT 5%-NACL 0.9% 1000 ML INJ 1,000 ML IV ONE (16:15)
[2017-05-01 17:48] LABS: BICARBONATE 24.9 MEQ/L (21.0-32.0); MAGNESIUM 1.8 MG/DL (1.5-2.5); POTASSIUM 3.7 MEQ/L (3.5-5.1)
[2017-05-01] MEDS ORDERED: MAGNESIUM SULFATE 1 GM PREMIX 100 ML ONE ×2 (17:53→18:16)
[2017-05-01] MEDS: MAGNESIUM SULFATE INJ 4 GM in SODIUM CHLORIDE 0.9% INJ 100 ML IV PRN (17:56)
[2017-05-01] MEDS ORDERED: DEXT 5%-NACL 0.9% 1000 ML INJ 1,000 ML IV SCH (19:00)
[2017-05-01] MEDS: ARTIFICIAL TEARS OPTH OINT 3.5 APPLIC/3.5 GM TUBO EACH EYE PRN (19:49)
[2017-05-01 23:12] LABS: BICARBONATE 24.2 MEQ/L (21.0-32.0); POTASSIUM 3.7 MEQ/L (3.5-5.1)
[2017-05-02] VITALS (22 sets, daily range): BP systolic 115–161; BP diastolic 57–78; PULSE 89–98; RESP 23–24; TEMP 95–97; O2SAT 93–100
[2017-05-02] MEDS: METOCLOPRAMIDE HCL 10 MG/2 ML VIAL IV PUSH SCH ×4 (00:24→22:33)
[2017-05-02] MEDS: PROPOFOL 1000 MG/100 ML IV SCH ×6 (00:24→22:33)
[2017-05-02] MEDS: INSULIN NovoLIN REGULAR SUPPLEMENTAL SCALE SQ SCH ×5 (03:00→20:15)
[2017-05-02] MEDS: MIDAZOLAM 100 MG/NS 100 ML DRIP Premix IV SCH ×2 (03:32→13:09)
[2017-05-02] MEDS: fentaNYL DRIP 250 ML IV SCH ×2 (03:33→20:14)
[2017-05-02] MEDS: CHLORHEXIDINE GLUCONATE 2 % 1 PACK (2 CLOTHS) TOP SCH (04:00)
[2017-05-02 04:04] LABS: HEMATOCRIT 23.6 % (35.0-46.0); MEAN CELL VOLUME 93.6 FL (80.0-100.0); MEAN CORPUSCULAR HEMOGLOBIN 30.7 PG (27.0-34.0); MEAN CORPUSCULAR HGB CONC 32.8 % (32.0-36.0); PLATELET COUNT 101 TH/MM3 (150-450); RED BLOOD COUNT 2.52 MIL/MM3 (4.00-5.30); RED CELL DISTRIBUTION WIDTH 13.7 % (11.6-17.2); REVIEW FLAG FINAL; WHITE BLOOD COUNT 13.3 TH/MM3 (4.0-11.0)
[2017-05-02 04:20] LABS: BICARBONATE 23.2 MEQ/L (21.0-32.0); MAGNESIUM 2.1 MG/DL (1.5-2.5); POTASSIUM 3.5 MEQ/L (3.5-5.1)
[2017-05-02] MEDS: ALBUMIN HUMAN 5% 25 GM/500 ML BOTTLE IV SCH (04:25)
[2017-05-02] MEDS: 3% SALINE INJ 500 ML IV SCH ×2 (04:54→21:41)
[2017-05-02] MEDS ORDERED: ICU - POTASSIUM PHOSPHATE 30 MMOL/NS 250 ML IV ONE ×2 (05:00)
[2017-05-02] MEDS: MORPHINE SULFATE 4 MG/ML INJ IV PUSH PRN (05:29)
[2017-05-02] MEDS: DEXTROSE 50% IN WATER 50 ML VIAL(D50) IV PUSH PRN (05:32)
[2017-05-02] MEDS: POTASSIUM CHLOR 40 MEQ PREMIX 100 ML IV PRN (05:33)
[2017-05-02 05:40] LABS: BLOOD GAS BASE EXCESS -4.8 mmol/L (-2-2); BLOOD GAS HCO3 20 mmol/L (22-26); BLOOD GAS METHEMOGLOBIN 1.2 % (0-2); BLOOD GAS O2 HGB SATURATION 89 % (90-100); BLOOD GAS OXYGEN CONTENT 10.4 Vol % (12.0-20.0); BLOOD GAS PCO2 35 mmHg (38-42); BLOOD GAS PO2 68 mmHg (61-120); BLOOD GAS TOTAL HGB 8.2 G/DL (12.0-16.0); TEMP CORR TO 98.6
[2017-05-02 05:42] LABS: CRITICAL VALUE YES; OXYGEN DEVICE VENTILATOR
[2017-05-02 05:43] LABS: DRAW SITE ALINE; FIO2 40 %; STAT NO
[2017-05-02] MEDS: DEXT 5%-NACL 0.9% 1000 ML INJ 1,000 ML IV SCH ×2 (05:44→10:34)
[2017-05-02] MEDS: CHLORHEXIDINE 0.12% (ORAL KIT) 15 ML CUP MT SCH ×2 (08:12→20:14)
[2017-05-02] MEDS: FUROSEMIDE 20 MG/2 ML VIAL IV PUSH SCH (08:13)
[2017-05-02] MEDS: DOCUSATE SODIUM 50 MG/SENNA 8.6 MG TAB PO SCH ×2 (08:13→20:15)
[2017-05-02] MEDS: ARTIFICIAL TEARS OPTH OINT 3.5 APPLIC/3.5 GM TUBO EACH EYE SCH ×2 (08:13→21:00)
[2017-05-02] MEDS: PANTOPRAZOLE SODIUM 40 MG VIAL IV SCH (08:13)
[2017-05-02] MEDS: DOCUSATE SODIUM 100 MG CAP PO SCH ×2 (08:13→20:15)
[2017-05-02] MEDS: SODIUM CHLORIDE 0.9% FLUSH 10 ML FLUSH IV FLUSH PRN (08:14)
[2017-05-02] MEDS: ASPIRIN 300 MG SUPP RECTAL SCH (08:14)
[2017-05-02] MEDS: NOREPINEPHRINE INJ 16 MG in SODIUM CHLOR 0.9% 250 ML INJ 234 ML IV SCH (08:14)
[2017-05-02] MEDS: levETIRAcetam INJ 500 MG in SODIUM CHLORIDE 0.9% INJ 100 ML IV SCH ×2 (08:14→20:14)
--- NOTE | 2017-05-02 10:03 | HHI.CCPN ---
Subjective Remarks/Hospital Course This is a 42yF with unremarkable past medical history who presents to the [facility] emergency department with new-onset left-sided weakness and slurred speech. She is an employee of [employer] who had a witnessed onset of her symptoms at 12:45pm. In the [facility] ED she was immediately taken for non-contrasted head CT which was negative for acute hemorrhage. She was given iv tpa which was instituted 36 minutes after arrival, per my conversation with the coding quality coordinator. She was then emergently transferred to [facility]. CT angiography demonstrated acute right m1 cut-off. She was taken by [facility] and arrived directly to the IR suite, where I met and evaluated the patient. Due to the acute nature of her illness and her dysarthria, a complete history is not obtainable. She does endorse right-sided headache, although denied any chest pain, shortness of breath. 04/27: Back from OR after right craniectomy for decompression s/p left MCA CVA. Heavily sedated. Some new history from a co-worker indicates that patient started taking oral contraceptive 2 months ago. 04/28: Continued problems with cerebral edema as expected. Push osmolality a little higher and restrict fluid. Tolerate pH mildly acidotic to avoid cerebral vascular constriction. 04/29: Osmolality in good range. ICP controlled. Hypothermia to 34 degrees. Raise to 35 slowly as long as ICP is acceptable. Unable to start tube feeds yet as gut motility will be poor at cooler temperature. 04/30: ICP control good. Osmolality acceptable. Temp to 35 degrees. 05/01: Raise temp to 36 degrees and hold. CXR with light basilar infiltrates, no leukocytosis. Heavily sedated for brain protection/ICP control. Persistent blood sugars 60s range - will start D5/NS at 30/hr. 05/02: vasopressor requirement uptrending. wbc uptrending as well. repeat head ct with persistent edema, although ICPs slightly improved. Objective Vital Signs Date Time Temp Pulse Resp B/P Pulse Ox O2 Delivery O2 Flow Rate FiO2 05/02/17 08:09 98 45 05/02/17 06:00 93 05/02/17 04:00 96.8 23 141/59 Intake and Output 05/01/17 05/01/17 05/02/17 08:00 16:00 00:00 Intake Total 817 ml 1467 ml 2532 ml Output Total 200 ml 1600.0 ml 700 ml Balance 617 ml -133.0 ml 1832 ml Result Diagram: 05/02/17 0340 05/02/17 0340 Other Results Laboratory Tests Test 05/01/17 05/02/17 14:35 05:30 Blood Gas Puncture Site ART LINE MELVINA Blood Gas Patient Temperature 98.6 98.6 Blood Gas HCO3 21 mmol/L 20 mmol/L (22-26) (22-26) Blood Gas Base Excess -3.2 mmol/L -4.8 mmol/L (-2-2) (-2-2) Blood Gas Oxygen Saturation 91 % (90-100) 89 % (90-100) Arterial Blood pH 7.39 7.37 (7.380-7.420) (7.380-7.420) Arterial Blood Partial 36 mmHg (38-42) 35 mmHg (38-42) Pressure CO2 Arterial Blood Partial 70 mmHg 68 mmHg Pressure O2 (61-120) (61-120) Arterial Blood Oxygen Content 9.9 Vol % 10.4 Vol % (12.0-20.0) (12.0-20.0) Arterial Blood 1.3 % (0-4) 1.0 % (0-4) Carboxyhemoglobin Arterial Blood Methemoglobin 1.3 % (0-2) 1.2 % (0-2) Blood Gas Hemoglobin 7.6 G/DL 8.2 G/DL (12.0-16.0) (12.0-16.0) Oxygen Delivery Device VENTILATOR VENTILATOR Blood Gas Ventilator Setting [id number]. SEE COMMENT Blood Gas Inspired Oxygen 40 % 40 % Imaging Last Impressions Neck CTA 04/26/171315 Signed Impressions: Service Date/Time: Wednesday, April 26, 2017 13:39 - CONCLUSION: 1. Standard 3 vessel arch anatomy. 2. Widely patent carotid arteries. 3. Dominant left vertebral artery. Vertebral arteries are patent bilaterally. 4. 5 mm right thyroid nodule. This can be further evaluated with ultrasound on an outpatient basis. yCrus Orozco MD Head CTA 04/26/171315 Signed Impressions: Service Date/Time: Wednesday, April 26, 2017 13:39 - CONCLUSION: 1. Occlusion of the right M1 segment. Grossly intact mendoza-white matter differentiation with gross ASPECT score of 10/10. 2. Incidental finding of 5 mm right thyroid nodule. This can be further evaluated with ultrasound on an outpatient basis. Cyrus Orozco MD Head CT 04/26/17 Signed Impressions: Service Date/Time: Wednesday, April 26, 2017 12:51 - CONCLUSION: Normal examination for a patient of this age. Jerry Torres MD Chest X-Ray 04/26/17 Signed Impressions: Service Date/Time: Wednesday, April 26, 2017 14:01 - CONCLUSION: No acute cardiopulmonary disease radiographically. Cyrus Orozco MD Objective Remarks gen: middle-aged female, heavily sedated for brain protection. heent: mild facial edema resolving. neck: trachea midline. orally intubated. chest: few rhonchi, good air movement equal chest rise. PCO2 control good. cv: normal rate, regular rhythm. sinus by tele. no JVD. no m,r abd: soft, nontender, nondistended. no guarding. quiet. extr: no peripheral edema. distal pulses palpable, well perfused. neuro: RASS -5; Heavily sedated. Left pupil 2 mm, reacts. Right pupil 3 mm, reacts. Otherwise unresponsive as expected. Temp 36 degrees A/P Assessment and Plan Assessment: 42yF with acute right M1 MCA CVA now s/p systemic TPA and attempted interventional mechanical thrombectomy. Her course is complicated by malignant cerebral edema requiring decompressive craniectomy and therapeutic hypothermia. She remains with significant cerebral edema, very critically ill, and with high vasopressor requirements. She has a lactic acidosis and this may represent a component of distributive shock on top of her other ongoing critical illnesses. She is very critically ill at this time. Plan by Systems: Neuro: Acute right M1 MCA CVA s/p systemic TPA and endovascular thrombectomy Dysarthria Left-sided hemiparesis Left-sided facial droop Malignant Cerebral Edema s/p Decompressive Craniectomy Elevated ICP -- q1h neuro checks -- no sedation vacation -- continue propofol, fentanyl -- wean versed today as long as ICP < 15. -- repeat head CT 05/02: stable edema, slightly enlarged left lateral ventricle, evolving right hemispheric cva -- will remove cooling catheter. maintain temp 36 - 37 with cooling blanket. -- 3% nacl @ 10cc/hr. goal Na 145-155. -- serial bmps -- SBP goal 140 - 160. -- keppra for seizure ppx Respiratory: Acute hypoxic and Hypercarbic respiratory failure -- no SBT today given persistent cerebral edema -- wean fio2 for goal spo2 > 90% -- etco2 monitoring with q12h abg. goal pco2 35 - 40. -- vent bundle -- elevated HOB Cardiovascular Distributive Shock -- goal sbp 140 - 160 for cerebral perfusion -- levophed, phenylephrine titrated to obtain goal -- trend lactates -- 2L NS bolus x 1 -- increase ivf to 150cc/hr maintenance. -- d/c lasix -- pulse contour analysis and cvp monitoring. Renal: Acute Kidney Injury -- likely secondary to intravascular volume depletion -- hold lasix -- continue ribera with strict i/o's -- trend Cr on daily bmp -- ivf as above. FEN/GI Acute protein calorie malnutrition- mild Intravascular volume depletion Hypernatremia Lactic Acidosis Anion-gap metabolic acidosis -- hold TF given high vasopressor requirements with elevated lactate -- ICU electrolyte protocol -- ivf resuscitation as above -- daily bmp -- hold on further diuresis. Heme/ID: Anemia secondary to acute blood loss Leukocytosis -- 1 unit prbc given worsening anemia -- start Zosyn 4.5 gm iv q6h -- recheck sputum, blood, urine cultures -- daily cbc -- am cxr Endo: Hypoglycemia -- continue d5NS @ 75cc/hr -- frequent glucose checks. Prophy: -- SCDs -- pepcid iv for gi prophylaxis Lines: -- LIJ TLC -- left femoral art line -- cooling catheter- will remove today. Overall impression: Large distribution right MCA CVA with shift required decompressive craniectomy 04/27 in an attempt to rescue the dominant hemisphere. She is critically ill with an unstable neurological process and considerable cerebral edema. This patient remains critically ill with one or more organ systems which are or may become a threat to life. I have spent in excess of 83 minutes discontinuously in the care and management of this patient. This time is exclusive of procedures, and includes, but is not limited to, evaluation of the patient, review of the medical record, discussions with family, consultants, nursing staff, or respiratory therapy, and documentation in the medical record. Remi Freeman MD May 02, 2017 10:03
[2017-05-02] MEDS: PHENYLEPHRINE INJ 160 MG in SODIUM CHLORID 0.9% 500 ML INJ 484 ML IV SCH ×2 (10:48→18:07)
[2017-05-02 11:15] LABS: BICARBONATE 23.4 MEQ/L (21.0-32.0); MAGNESIUM 2.1 MG/DL (1.5-2.5); POTASSIUM 4.1 MEQ/L (3.5-5.1)
--- NOTE | 2017-05-02 11:48 | RADRPT ---
EXAM DATE/TIME: 05/02/2017 11:18 [place] COMPARISON: CT BRAIN W/O CONTRAST, April 26, 2017, 12:51. INDICATIONS : Post craniotomy, stroke RADIATION DOSE: 55.10 CTDIvol (mGy) MEDICAL HISTORY : None SURGICAL HISTORY : None. ENCOUNTER: Initial ACUITY: 1 week PAIN SCALE: Non-responsive LOCATION: Cranial TECHNIQUE: Multiple contiguous axial images were obtained of the head. Using automated exposure control and adj ustment of the mA and/or kV according to patient size, radiation dose was kept as low as reasonably a chievable to obtain optimal diagnostic quality images. FINDINGS: There is a large infarct involving most of the right cerebral hemisphere with parenchymal hemorrhage deep in the basal ganglia. There is effacement of the lateral ventricle. Small amount of hygroma persists along the tentorial edge posteriorly. There is compression across the third ventricle. The left ventricle is becoming prominent. Posterio r fossa is unremarkable. CONCLUSION: 1. Significant edema in the right hemisphere. 2. Third ventricle is compressed. The left lateral ventricle is becoming larger. 3. Large amount of parenchymal hemorrhage is present in the deep right thalamus. Phuc Younger MD FACR on May 02, 2017 at 11:30 Board Certified Radiologist. This report was verified electronically.
--- NOTE | 2017-05-02 11:58 | HHI.NSPN ---
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 Her MRI showed midline shift and was taken for emergent right decompressive craniectomy 04/27/17 with placement of ICP monitor. 04/28: pt seen this am during rounds: ICPs became elevated last evening and early this morning in the mid 20's. pt started on Versed drip with bolus of 23%. On Mannitol and 3% NS. ICPs now 11-14. Critical care aware will be initiating code cool. Unstable for repeat CT Head this am. 04/29: intubated and well sedated, hypothermic therapy. ICPs improved and stable overnight. 04/30: ICPs in the high teens. On max sedation. Elevated serums os and sodium levels. Increasing vent rate to decrease pCO2. Started rewarming. 05/01: slowly being rewarmed. ICPs high teens but stable. remains well sedated 05/02: ICPs better today in the mid teens. Well sedated. Febrile. (Sakina Israel) Labs, Micro, & Vital Signs Results Date Time Temp Pulse Resp B/P Pulse Ox O2 Delivery O2 Flow Rate FiO2 05/02/17 08:09 98 45 05/02/17 06:00 93 05/02/17 04:07 95 40 05/02/17 04:00 30 05/02/17 04:00 96.8 96 23 141/59 100 05/02/17 04:00 95 05/02/17 02:00 90 05/02/17 01:18 99 40 05/02/17 00:00 89 05/02/17 00:00 30 05/02/17 00:00 96.8 89 23 134/65 100 05/01/17 22:09 100 40 05/01/17 22:00 87 05/01/17 20:00 30 05/01/17 20:00 90 05/01/17 20:00 96.8 89 23 146/72 100 05/01/17 19:15 98 40 05/01/17 16:00 96.8 90 22 141/68 100 05/01/17 16:00 90 05/01/17 15:12 100 40 05/01/17 13:07 99 40 05/01/17 12:00 90 05/01/17 12:00 96.8 90 20 141/68 100 05/02/17 07:00 Intake Total 6028 ml Output Total 2750.0 ml Balance 3278.0 ml Constitutional Vital Signs Date Time Temp Pulse Resp B/P Pulse Ox O2 Delivery O2 Flow Rate FiO2 05/02/17 08:09 98 45 05/02/17 06:00 93 05/02/17 04:07 95 40 05/02/17 04:00 30 05/02/17 04:00 96.8 96 23 141/59 100 05/02/17 04:00 95 05/02/17 02:00 90 05/02/17 01:18 99 40 05/02/17 00:00 89 05/02/17 00:00 30 05/02/17 00:00 96.8 89 23 134/65 100 05/01/17 22:09 100 40 05/01/17 22:00 87 05/01/17 20:00 30 05/01/17 20:00 90 05/01/17 20:00 96.8 89 23 146/72 100 05/01/17 19:15 98 40 05/01/17 16:00 96.8 90 22 141/68 100 05/01/17 16:00 90 05/01/17 15:12 100 40 05/01/17 13:07 99 40 05/01/17 12:00 90 05/01/17 12:00 96.8 90 20 141/68 100 05/02/17 07:00 Intake Total 6028 ml Output Total 2750.0 ml Balance 3278.0 ml (Sakina Israel) Review of Systems/Exam Exam Ms. [place] is intubated and currently well sedated on multiple sedatives. No eye opening. Right flap remains full, slightly softer to palpate today. ICPs 13. Left bolt intact, clean with iodine gauze dressing Cranial Nerves: Left pupil 4, right pupil 6, b/l nonreactive. Conjugate gaze. Motor: No response, very well sedated Generalized edema to extremities Bilateral plantar response silent. (Sakina Israel) Medications Current Medications Current Medications Medications (Trade) Dose Ordered Sig/Elida Route PRN Reason Start Time Stop Time Status Last Admin Dose Admin Magnesium Oxide 800 mg 800 mg UNSCH PRN PO For Magnesium 1.2 - 1.6 mg/dL 04/26/17 14:15 Magnesium Sulfate 4 gm/Sodium Chloride 100 ml @ 50 mls/hr UNSCH PRN IV For Magnesium 0.9 - 1.1 mg/dL 04/26/17 14:15 Magnesium Sulfate 2 gm/Sodium Chloride 100 ml @ 50 mls/hr UNSCH PRN IV For Magnesium 1.2 - 1.6 mg/dL 04/26/17 14:15 Potassium Chloride 100 ml @ 50 mls/hr Q2H PRN IV For Potassium 2.8 - 3.2 mEq/L 04/26/17 14:15 Potassium Chloride 100 ml @ 50 mls/hr Q2H PRN IV For Potassium 3.3 - 3.5 mEq/L 04/26/17 14:15 04/27/17 13:31 Potassium Chloride 100 ml @ 50 mls/hr Q2H PRN IV For Potassium 2.8 - 3.2 mEq/L 04/26/17 14:15 04/30/17 01:53 Potassium Chloride (KCl 40 Meq Premix Inj) 100 ml @ 25 mls/hr UNSCH PRN IV For Potassium 3.3 - 3.5 mEq/L 04/26/17 14:15 05/02/17 05:33 Potassium Phosphate (K-Phos) 2,000 mg Q4H PRN PO For Phosphorus < 2.5 mg/dL 04/26/17 14:15 04/28/17 05:25 Potassium Phosphate 2000 mg 2,000 mg UNSCH PRN PO/TUBE SEE LABEL COMMENTS 04/26/17 14:15 Sodium Phosphate/ Sodium Chloride (Sodium Phosphate Inj/NS 250 ml Inj) 250 ml @ 42 mls/hr UNSCH PRN IV For Phosphorus < 2.5 mg/dL 04/26/17 14:15 04/29/17 18:52 Dextrose (D50w (Vial) Inj) 25 ml UNSCH PRN IV PUSH HYPOGLYCEMIA-SEE COMMENTS 04/26/17 14:15 05/02/17 05:32 Pantoprazole Sodium (Protonix Inj) 40 mg DAILY IV 04/27/17 09:00 05/02/17 08:13 Ondansetron HCl (Zofran Inj) 4 mg Q6H PRN IV NAUSEA OR VOMITING 04/26/17 14:15 Miscellaneous Information 1 [id number] XX 04/26/17 14:15 Chlorhexidine Gluconate (Chlorhexidine 2% Cloth) Taper DAILY@04 TOP 04/27/17 04:00 04/23/18 03:59 04/30/17 04:00 Chlorhexidine Gluconate (Chlorhexidine 2% Cloth) 3 pack UNSCH PRN TOP HYGIENIC CARE 04/26/17 14:15 Senna/Docusate Sodium 1 tab 1 tab BID PO 04/26/17 21:00 05/02/17 08:13 Nicardipine HCl/ Sodium Chloride (Cardene Inj/NS 250 ml Inj) 260 ml @ 0 mls/hr TITRATE IV 04/26/17 15:30 Labetalol HCl (Trandate Inj) 20 mg Q15M PRN IV PUSH sbp > 160 04/26/17 15:30 Hydralazine HCl 10 mg 10 mg Q30M PRN IV PUSH sbp > 160 04/26/17 15:30 Fentanyl Citrate 250 ml @ 0 mls/hr TITRATE IV 04/26/17 21:45 05/02/17 03:33 Propofol 100 ml @ 0 mls/hr TITRATE IV 04/26/17 22:00 05/02/17 10:34 Levetriacetam/ Sodium Chloride (Keppra Inj/NS Inj) 105 ml @ 400 mls/hr Q12H IV 04/27/17 21:00 05/02/17 08:14 Bisacodyl (Dulcolax Supp) 10 mg DAILY PRN RECTAL CONSTIPATION 04/27/17 10:30 05/01/17 08:29 Docusate Sodium (Colace) 100 mg BID PO 04/27/17 21:00 05/02/17 08:13 Calcium Gluconate 1 gm 1 gm UNSCH PRN IV SEE LABEL COMMENTS 04/27/17 10:30 04/30/17 19:04 Potassium Chloride 100 ml @ 50 mls/hr UNSCH PRN IV POTASSIUM LESS THAN 4 04/27/17 10:30 Magnesium Sulfate/ Sodium Chloride (Magnesium Sulfate Inj/NS Inj) 108 ml @ 108 mls/hr UNSCH PRN IV MAGNESIUM LESS THAN 2 04/27/17 10:30 05/01/17 17:56 Morphine Sulfate (Morphine Inj) 2 mg Q2H PRN IV PUSH PAIN SCALE 1 TO 6 04/27/17 10:30 Morphine Sulfate (Morphine Inj) 4 mg Q2H PRN IV PUSH PAIN SCALE 7 TO 10 04/27/17 10:30 05/02/17 05:29 Chlorhexidine Gluconate (Peridex 0.12% Liq) 15 ml BID@08,20 MT 04/27/17 20:00 05/02/17 08:12 Fentanyl Citrate 100 mcg 100 mcg Q1H PRN IV PUSH SEE LABEL COMMENTS 04/28/17 02:00 05/02/17 05:29 Midazolam HCl (Versed Inj) 100 ml @ 0 mls/hr TITRATE IV 04/28/17 07:00 05/02/17 03:32 Artificial Tears (Lacrilube Opht Oint) APPLY UNDER BOTH EYELIDS BID EACH EYE 04/28/17 21:00 05/02/17 08:13 Lorazepam 1 mg 1 mg Q1H PRN IV SEIZURES 04/28/17 11:15 Miscellaneous Information ml @ 0 mls/hr UNSCH IV 04/28/17 11:15 Sodium Chloride (NS Flush) 2 ml UNSCH PRN IV FLUSH SEE LABEL COMMENTS 04/28/17 11:15 05/02/17 08:14 Sodium Chloride (NS Flush) 2 ml UNSCH PRN IV FLUSH IV FLUSH 04/28/17 11:15 Artificial Tears 1 applic 1 applic Q4H PRN EACH EYE SEE LABEL COMMENTS 04/28/17 11:15 05/01/17 19:49 Potassium Phosphate/Sodium Chloride (Potassium Phosphate Inj/NS 250 ml Inj) 260 ml @ 43.333 mls/ hr UNSCH PRN IV ELECTROLYTE REPLACEMENT 04/30/17 09:00 Albumin Human (Albumin 5% Inj) 25 gm Q12H IV 05/01/17 06:00 05/02/17 04:25 Metoclopramide HCl 10 mg 10 mg Q8H IV PUSH 05/01/17 08:00 05/02/17 08:12 Phenylephrine HCl 160 mg/Sodium Chloride 500 ml @ 0 mls/hr TITRATE IV 05/01/17 15:00 05/02/17 10:48 Norepinephrine Bitartrate 16 mg/ Sodium Chloride 250 ml @ 0 mls/hr TITRATE IV 05/01/17 21:45 05/02/17 08:14 Sodium Chloride 500 ml @ 5 mls/hr Q24H IV 05/02/17 04:54 Dextrose/Sodium Chloride (D5W-NS 1000 ml Inj) 1,000 ml @ 75 mls/hr [id number] IV 05/02/17 05:45 05/02/17 10:34 Acetaminophen (Ofirmev Inj) 1,000 mg Q6H PRN IV temp > 37 05/02/17 09:45 Aspirin (Aspirin) 325 mg DAILY PO 05/03/17 09:00 (Sakina Israel) Medical Decision Making MDM Remarks 42 year old female with large right hemispheric CVA with mass effect and midline shift, s/p right decompressive craniectomy with placement of ICP monitor 04/27/17 hypothermic therapy, rewarming (Sakina Israel) Plan Plan Remarks critical care management f/u CT Head today, discontinue intracranial PJ drains x 2 cont keep well sedated cont ICP monitoring f/u serum os and sodium levels for hyperosmotic tx critical care mgt - hypothermic mgt, rewarming cont serial neuro checks Dr. Jac Freeman (Sakina Israel) Attending Statement The exam, history, and the medical decision-making described in the above note were completed with the assistance of the mid-level provider. I reviewed and agree with the findings presented. I attest that I had a [id number] encounter with the patient on the same day, and personally performed and documented my assessment and findings in the medical record. (Garry Nathan MD) Sakina Israel May 02, 2017 11:58 Garry Nathan MD May 08, 2017 19:13
[2017-05-02 15:16] LABS: BLOOD GAS CARBOXYHEMOGLOBIN 0.7 % (0-4); BLOOD GAS HCO3 20 mmol/L (22-26); BLOOD GAS METHEMOGLOBIN 1.3 % (0-2); BLOOD GAS O2 HGB SATURATION 86 % (90-100); BLOOD GAS OXYGEN CONTENT 11.2 Vol % (12.0-20.0); BLOOD GAS PCO2 42 mmHg (38-42); BLOOD GAS PO2 64 mmHg (61-120); BLOOD GAS TOTAL HGB 9.1 G/DL (12.0-16.0); TEMP CORR TO 98.6
[2017-05-02 15:17] LABS: CRITICAL VALUE YES; DRAW SITE ART LINE; FIO2 45 %; NUMBER OF ARTERIAL PUNCTURES 0; OXYGEN DEVICE VENTILATOR; STAT NO; ULNAR PULSE PRESENT; VENT SETTINGS PRVC/AC
[2017-05-02 15:30] LABS: BLOOD, URINE NEG (NEG); COMMENT (UR) CULT NOT INDICATED; CULTURE IF INDICATED CULT NOT INDICATED; GLUCOSE,URINE NEG (NEG); KETONE, URINE NEG (NEG); MUCUS URINE FEW /lpf (OCC); NITRITE,URINE NEG (NEG); URINE COLOR LIGHT-YELLOW (YELLW/STRAW)
--- NOTE | 2017-05-02 16:29 | OTSOAPIP ---
TIME SESSION COMPLETED: AM TREATMENT TIME: 0 MINS. CHART REVIEWED. PT REMAINS ON HOLD. ASSESSMENT TO BE COMPLETED WHEN STABLE AND APPROPRIATE. Therapist: ALFONZO IRWIN OT/L Signature on file
[2017-05-02 17:06] LABS: HEMATOCRIT 21.9 % (35.0-46.0); MEAN CELL VOLUME 92.8 FL (80.0-100.0); MEAN CORPUSCULAR HEMOGLOBIN 31.3 PG (27.0-34.0); MEAN CORPUSCULAR HGB CONC 33.7 % (32.0-36.0); PLATELET COUNT 83 TH/MM3 (150-450); RED BLOOD COUNT 2.36 MIL/MM3 (4.00-5.30); WHITE BLOOD COUNT 16.4 TH/MM3 (4.0-11.0)
[2017-05-02 17:10] LABS: REVIEW FLAG FINAL
[2017-05-02] MEDS ORDERED: SODIUM CHLOR 0.9% 250 ML INJ 250 ML IV ONE (17:30)
[2017-05-02 17:40] LABS: BICARBONATE 23.7 MEQ/L (21.0-32.0); MAGNESIUM 1.9 MG/DL (1.5-2.5); POTASSIUM 3.8 MEQ/L (3.5-5.1)
[2017-05-02] MEDS: SODIUM CHLOR 0.9% 1000 ML INJ 1,000 ML IV SCH (17:54)
[2017-05-02] MEDS: PIPERACIL-TAZO 4.5 GM PREMIX 100 ML IV SCH ×2 (17:54→22:33)
[2017-05-02] MEDS ORDERED: SODIUM CHLOR 0.9% 1000 ML INJ 1,000 ML IV ONE ×2 (18:00)
--- NOTE | 2017-05-02 19:57 | HHI.PR ---
Review/Management Diagnosis right MCA stroke, s/p iv tpa and thrombectomy of right M1 thrombus. Plan continue asa, hypertonic saline Diagnosis/Plan: Subjective Subjective Comments No acute events reported Active Medications Current Medications Medications (Trade) Dose Ordered Sig/Elida Route Start Time Stop Time Status Last Admin Magnesium Oxide 800 mg 800 mg UNSCH PRN PO 04/26/17 14:15 Magnesium Sulfate 4 gm/Sodium Chloride 100 ml @ 50 mls/hr UNSCH PRN IV 04/26/17 14:15 Magnesium Sulfate 2 gm/Sodium Chloride 100 ml @ 50 mls/hr UNSCH PRN IV 04/26/17 14:15 Potassium Chloride 100 ml @ 50 mls/hr Q2H PRN IV 04/26/17 14:15 Potassium Chloride 100 ml @ 50 mls/hr Q2H PRN IV 04/26/17 14:15 04/27/17 13:31 Potassium Chloride 100 ml @ 50 mls/hr Q2H PRN IV 04/26/17 14:15 04/30/17 01:53 (KCl 40 Meq Premix Inj) 100 ml @ 25 mls/hr UNSCH PRN IV 04/26/17 14:15 05/02/17 05:33 (K-Phos) 2,000 mg Q4H PRN PO 04/26/17 14:15 04/28/17 05:25 Potassium Phosphate 2000 mg 2,000 mg UNSCH PRN PO/TUBE 04/26/17 14:15 (Sodium Phosphate Inj/NS 250 ml Inj) 250 ml @ 42 mls/hr UNSCH PRN IV 04/26/17 14:15 04/29/17 18:52 (D50w (Vial) Inj) 25 ml UNSCH PRN IV PUSH 04/26/17 14:15 05/02/17 05:32 (Protonix Inj) 40 mg DAILY IV 04/27/17 09:00 05/02/17 08:13 (Zofran Inj) 4 mg Q6H PRN IV 04/26/17 14:15 Miscellaneous Information 1 [id number] XX 04/26/17 14:15 (Chlorhexidine 2% Cloth) Taper DAILY@04 TOP 04/27/17 04:00 04/23/18 03:59 04/30/17 04:00 (Chlorhexidine 2% Cloth) 3 pack UNSCH PRN TOP 04/26/17 14:15 Senna/Docusate Sodium 1 tab 1 tab BID PO 04/26/17 21:00 05/02/17 08:13 (Cardene Inj/NS 250 ml Inj) 260 ml @ 0 mls/hr TITRATE IV 04/26/17 15:30 (Trandate Inj) 20 mg Q15M PRN IV PUSH 04/26/17 15:30 Hydralazine HCl 10 mg 10 mg Q30M PRN IV PUSH 04/26/17 15:30 Fentanyl Citrate 250 ml @ 0 mls/hr TITRATE IV 04/26/17 21:45 05/02/17 03:33 Propofol 100 ml @ 0 mls/hr TITRATE IV 04/26/17 22:00 05/02/17 17:53 (Keppra Inj/NS Inj) 105 ml @ 400 mls/hr Q12H IV 04/27/17 21:00 05/02/17 08:14 (Dulcolax Supp) 10 mg DAILY PRN RECTAL 04/27/17 10:30 05/01/17 08:29 (Colace) 100 mg BID PO 04/27/17 21:00 05/02/17 08:13 Calcium Gluconate 1 gm 1 gm UNSCH PRN IV 04/27/17 10:30 04/30/17 19:04 Potassium Chloride 100 ml @ 50 mls/hr UNSCH PRN IV 04/27/17 10:30 (Magnesium Sulfate Inj/NS Inj) 108 ml @ 108 mls/hr UNSCH PRN IV 04/27/17 10:30 05/01/17 17:56 (Morphine Inj) 2 mg Q2H PRN IV PUSH 04/27/17 10:30 (Morphine Inj) 4 mg Q2H PRN IV PUSH 04/27/17 10:30 05/02/17 05:29 (Peridex 0.12% Liq) 15 ml BID@08,20 MT 04/27/17 20:00 05/02/17 08:12 Fentanyl Citrate 100 mcg 100 mcg Q1H PRN IV PUSH 04/28/17 02:00 05/02/17 05:29 (Versed Inj) 100 ml @ 0 mls/hr TITRATE IV 04/28/17 07:00 05/02/17 13:09 (Lacrilube Opht Oint) APPLY UNDER BOTH EYELIDS BID EACH EYE 04/28/17 21:00 05/02/17 08:13 Lorazepam 1 mg 1 mg Q1H PRN IV 04/28/17 11:15 Miscellaneous Information ml @ 0 mls/hr UNSCH IV 04/28/17 11:15 (NS Flush) 2 ml UNSCH PRN IV FLUSH 04/28/17 11:15 05/02/17 08:14 (NS Flush) 2 ml UNSCH PRN IV FLUSH 04/28/17 11:15 Artificial Tears 1 applic 1 applic Q4H PRN EACH EYE 04/28/17 11:15 05/01/17 19:49 (Potassium Phosphate Inj/NS 250 ml Inj) 260 ml @ 43.333 mls/ hr UNSCH PRN IV 04/30/17 09:00 Metoclopramide HCl 10 mg 10 mg Q8H IV PUSH 05/01/17 08:00 05/02/17 17:54 Phenylephrine HCl 160 mg/Sodium Chloride 500 ml @ 0 mls/hr TITRATE IV 05/01/17 15:00 05/02/17 18:07 Norepinephrine Bitartrate 16 mg/ Sodium Chloride 250 ml @ 0 mls/hr TITRATE IV 05/01/17 21:45 05/02/17 08:14 Sodium Chloride 500 ml @ 5 mls/hr Q24H IV 05/02/17 04:54 (D5W-NS 1000 ml Inj) 1,000 ml @ 75 mls/hr [id number] IV 05/02/17 05:45 05/02/17 10:34 (Ofirmev Inj) 1,000 mg Q6H PRN IV 05/02/17 09:45 Aspirin 325 mg 325 mg DAILY PO 05/03/17 09:00 Sodium Chloride 1,000 ml @ 75 mls/hr [id number] IV 05/02/17 17:15 05/02/17 17:54 Piperacillin Sod/ Tazobactam Sod 100 ml @ 200 mls/hr Q6H IV 05/02/17 18:00 05/02/17 17:54 (NS 250 ml Inj) 250 ml @ 15 mls/hr ONCE ONCE IV 05/02/17 17:30 05/03/17 10:09 05/02/17 18:07 Allergies Allergies Coded Allergies Shellfish (Verified Allergy, Unknown, 04/26/17) Exam I&O / VS 05/01/17 05/01/17 05/02/17 15:00 23:00 07:00 Intake Total 1467 ml 2532 ml 2029 ml Output Total 1600 ml 700 ml 450 ml Balance -133 ml 1832 ml 1579 ml IV Total 1467 ml 2032 ml 1248 ml Albumin 500 ml 500 ml Tube Irrigant 281 ml Output Urine Total 1600 ml 700 ml 450 ml Gastric Drainage Total 0 ml Tube Feeding Residual Discard 0 ml 0 ml Drainage Total 0 ml # Bowel Movements 0 Vital Signs Date Time Temp Pulse Resp B/P Pulse Ox O2 Delivery O2 Flow Rate FiO2 05/02/17 18:00 96 05/02/17 16:00 60 05/02/17 16:00 95.7 94 23 153/59 95 05/02/17 16:00 94 05/02/17 15:30 93 45 05/02/17 14:00 98 05/02/17 12:31 95 45 05/02/17 12:00 45 05/02/17 12:00 96 05/02/17 12:00 97.0 96 23 115/58 98 05/02/17 10:30 99 60 05/02/17 10:00 94 05/02/17 08:09 98 45 05/02/17 08:00 95 05/02/17 08:00 97.0 95 23 130/57 98 05/02/17 08:00 45 05/02/17 06:00 93 05/02/17 04:07 95 40 05/02/17 04:00 30 05/02/17 04:00 96.8 96 23 141/59 100 05/02/17 04:00 95 05/02/17 02:00 90 05/02/17 01:18 99 40 05/02/17 00:00 89 05/02/17 00:00 30 05/02/17 00:00 96.8 89 23 134/65 100 05/01/17 22:09 100 40 05/01/17 22:00 87 05/01/17 20:00 30 05/01/17 20:00 90 05/01/17 20:00 96.8 89 23 146/72 100 Exam Comments sedated pupils 4 mm right nonreactive, 2 mm left and reactive no spontaneous limb movement and no withdrawal Objective Radiology Results CT brain--right hemisphere edema with right to left shift and small amount of hemorrhage Micro and Labs Laboratory Tests Test 05/01/17 05/02/17 05/02/17 05/02/17 22:30 03:40 05:30 10:44 Sodium Level 154 154 154 Potassium Level 3.7 3.5 4.1 Chloride Level 122 121 122 Carbon Dioxide Level 24.2 23.2 23.4 Anion Gap 8 10 9 Blood Urea Nitrogen 3 3 4 Creatinine 1.13 1.22 1.33 Estimat Glomerular Filtration 52 48 43 Rate Random Glucose 78 72 80 Calcium Level 7.7 7.7 7.9 White Blood Count 13.3 Red Blood Count 2.52 Hemoglobin 7.7 Hematocrit 23.6 Mean Corpuscular Volume 93.6 Mean Corpuscular Hemoglobin 30.7 Mean Corpuscular Hemoglobin 32.8 Concent Red Cell Distribution Width 13.7 Platelet Count 101 Mean Platelet Volume 9.0 Phosphorus Level 3.8 Magnesium Level 2.1 2.1 Blood Gas Puncture Site MELVINA Blood Gas Patient Temperature 98.6 Blood Gas HCO3 20 Blood Gas Base Excess -4.8 Blood Gas Oxygen Saturation 89 Arterial Blood pH 7.37 Arterial Blood Partial 35 Pressure CO2 Arterial Blood Partial 68 Pressure O2 Arterial Blood Oxygen Content 10.4 Arterial Blood 1.0 Carboxyhemoglobin Arterial Blood Methemoglobin 1.2 Blood Gas Hemoglobin 8.2 Oxygen Delivery Device VENTILATOR Blood Gas Ventilator Setting SEE COMMENT Blood Gas Inspired Oxygen 40 Lactic Acid Level 3.0 Test 05/02/17 05/02/17 05/02/17 05/02/17 14:10 15:00 16:45 18:04 Urine Color LIGHT-YELLOW Urine Turbidity CLEAR Urine pH 5.0 Urine Specific [place] 1.006 Urine Protein NEG Urine Glucose (UA) NEG Urine Ketones NEG Urine Occult Blood NEG Urine Nitrite NEG Urine Bilirubin NEG Urine Urobilinogen LESS THAN 2.0 Urine Leukocyte Esterase NEG Urine RBC LESS THAN 1 Urine WBC 1 Urine Mucus FEW Microscopic Urinalysis Comment CULT NOT INDICATED Blood Gas Puncture Site ART LINE Blood Gas Patient Temperature 98.6 Blood Gas HCO3 20 Blood Gas Base Excess -5.0 Blood Gas Oxygen Saturation 86 Arterial Blood pH 7.30 Arterial Blood Partial 42 Pressure CO2 Arterial Blood Partial 64 Pressure O2 Arterial Blood Oxygen Content 11.2 Arterial Blood 0.7 Carboxyhemoglobin Arterial Blood Methemoglobin 1.3 Blood Gas Hemoglobin 9.1 Oxygen Delivery Device VENTILATOR Blood Gas Ventilator Setting PRVC/AC Blood Gas Inspired Oxygen 45 White Blood Count 16.4 Red Blood Count 2.36 Hemoglobin 7.4 Hematocrit 21.9 Mean Corpuscular Volume 92.8 Mean Corpuscular Hemoglobin 31.3 Mean Corpuscular Hemoglobin 33.7 Concent Red Cell Distribution Width 14.0 Platelet Count 83 Mean Platelet Volume 9.3 Sodium Level 154 Potassium Level 3.8 Chloride Level 123 Carbon Dioxide Level 23.7 Anion Gap 7 Blood Urea Nitrogen 4 Creatinine 1.30 Estimat Glomerular Filtration 44 Rate Random Glucose 73 Calcium Level 7.5 Phosphorus Level 4.9 Magnesium Level 1.9 Blood Type A POSITIVE Antibody Screen NEGATIVE Crossmatch Leukocyte-Reduced Red Blood Cells Blood Bank Comment Date/Time Procedure Status Source Growth 05/02/17 13:30 Aerobic Blood Culture Received Blood Peripheral Pending 05/02/17 13:30 Anaerobic Blood Culture Received Blood Peripheral Pending 05/01/17 06:58 Gram Stain - Final Resulted Sputum Endotracheal 05/01/17 06:58 Sputum Culture - Preliminary Resulted Gram Negative Nadeem 04/29/17 03:17 Aerobic Blood Culture - Preliminary Resulted Blood Peripheral NO GROWTH IN 3 DAYS 04/29/17 03:17 Anaerobic Blood Culture - Preliminary Resulted Blood Peripheral NO GROWTH IN 3 DAYS Santana Gomez PhD May 02, 2017 19:57
[2017-05-02 23:39] LABS: BICARBONATE 19.9 MEQ/L (21.0-32.0); POTASSIUM 3.3 MEQ/L (3.5-5.1)
[2017-05-03] VITALS (18 sets, daily range): BP systolic 123–154; BP diastolic 56–87; PULSE 73–97; RESP 24; TEMP 95–97.9; O2SAT 94–100
[2017-05-03 00:10] LABS: CALCIUM-PROTEIN CORRECTED 8.9 MG/DL (8.5-10.1)
[2017-05-03] MEDS: PROPOFOL 1000 MG/100 ML IV SCH ×4 (02:37→23:20)
[2017-05-03] MEDS: MIDAZOLAM 100 MG/NS 100 ML DRIP Premix IV SCH (02:37)
[2017-05-03] MEDS: fentaNYL DRIP 250 ML IV SCH ×2 (02:37→10:04)
[2017-05-03] MEDS: PHENYLEPHRINE INJ 160 MG in SODIUM CHLORID 0.9% 500 ML INJ 484 ML IV SCH ×2 (02:37→12:02)
[2017-05-03] MEDS: CHLORHEXIDINE GLUCONATE 2 % 1 PACK (2 CLOTHS) TOP SCH (02:37)
[2017-05-03] MEDS: INSULIN NovoLIN REGULAR SUPPLEMENTAL SCALE SQ SCH ×5 (03:00→21:00)
[2017-05-03] MEDS: 3% SALINE INJ 500 ML IV SCH (04:32)
[2017-05-03 04:33] LABS: HEMATOCRIT 27.6 % (35.0-46.0); MEAN CELL VOLUME 91.7 FL (80.0-100.0); MEAN CORPUSCULAR HEMOGLOBIN 30.5 PG (27.0-34.0); MEAN CORPUSCULAR HGB CONC 33.3 % (32.0-36.0); PLATELET COUNT 71 TH/MM3 (150-450); RED BLOOD COUNT 3.01 MIL/MM3 (4.00-5.30); RED CELL DISTRIBUTION WIDTH 15.1 % (11.6-17.2); WHITE BLOOD COUNT 14.9 TH/MM3 (4.0-11.0)
[2017-05-03 04:35] LABS: REVIEW FLAG FINAL
[2017-05-03] MEDS: POTASSIUM CHLOR 40 MEQ PREMIX 100 ML IV PRN ×2 (04:56→05:44)
[2017-05-03] MEDS: PIPERACIL-TAZO 4.5 GM PREMIX 100 ML IV SCH ×4 (04:56→23:21)
[2017-05-03 05:03] LABS: BICARBONATE 20.1 MEQ/L (21.0-32.0); MAGNESIUM 1.8 MG/DL (1.5-2.5)
[2017-05-03 05:24] LABS: POTASSIUM 2.7 MEQ/L (3.5-5.1)
[2017-05-03] MEDS: SODIUM CHLOR 0.9% 1000 ML INJ 1,000 ML IV SCH ×2 (05:37→18:06)
[2017-05-03 05:46] LABS: BLOOD GAS BASE EXCESS -6.8 mmol/L (-2-2); BLOOD GAS CARBOXYHEMOGLOBIN 0.9 % (0-4); BLOOD GAS HCO3 18 mmol/L (22-26); BLOOD GAS METHEMOGLOBIN 1.5 % (0-2); BLOOD GAS O2 HGB SATURATION 91 % (90-100); BLOOD GAS OXYGEN CONTENT 11.4 Vol % (12.0-20.0); BLOOD GAS PCO2 37 mmHg (38-42); BLOOD GAS PO2 73 mmHg (61-120); BLOOD GAS TOTAL HGB 8.9 G/DL (12.0-16.0); CRITICAL VALUE NO; OXYGEN DEVICE VENTILATOR; TEMP CORR TO 98.6
[2017-05-03 05:48] LABS: DRAW SITE ART LINE; FIO2 60 %; NUMBER OF ARTERIAL PUNCTURES 0; STAT NO
--- NOTE | 2017-05-03 05:57 | RADRPT ---
EXAM DATE/TIME: 05/03/2017 04:35 [facility] COMPARISON: CHEST SINGLE AP, May 01, 2017, 4:53. INDICATIONS : Short of breath. MEDICAL HISTORY : None. SURGICAL HISTORY : None. ENCOUNTER: Subsequent ACUITY: 1 week PAIN SCORE: Non-responsive. LOCATION: Bilateral chest FINDINGS: A single view of the chest demonstrates the endotracheal tube, nasogastric tube and left IJ central l ine all in good position. There is persistent small lung volumes with bibasilar areas of infiltrate a nd consolidation which are unchanged.. The cardiomediastinal contours are unremarkable. Osseous str uctures are intact. CONCLUSION: Tubes and the catheter are in good position. Bilateral lower lobe areas of consolidation with small lung volumes unchanged Bertin White MD on May 03, 2017 at 5:54 Board Certified Radiologist. This report was verified electronically.
[2017-05-03] MEDS: DEXTROSE 50% IN WATER 50 ML VIAL(D50) IV PUSH PRN (06:49)
[2017-05-03] MEDS ORDERED: Vancomycin Consult Pharmacy 1 EA OTHER SCH (08:00)
[2017-05-03] MEDS ORDERED: HYDROCORTISONE SOD SUCCINATE 100 MG VIAL IV PUSH ONE (08:30)
[2017-05-03] MEDS ORDERED: VANCOMYCIN INJ 1,250 MG in SODIUM CHLOR 0.9% 250 ML INJ 250 ML IV ONE (09:00)
[2017-05-03] MEDS: ARTIFICIAL TEARS OPTH OINT 3.5 APPLIC/3.5 GM TUBO EACH EYE SCH ×2 (09:00→20:11)
[2017-05-03] MEDS: DOCUSATE SODIUM 50 MG/SENNA 8.6 MG TAB PO SCH ×2 (09:00→20:11)
[2017-05-03 09:48] LABS: BLOOD GAS BASE EXCESS -7.9 mmol/L (-2-2); BLOOD GAS CARBOXYHEMOGLOBIN 0.8 % (0-4); BLOOD GAS HCO3 17 mmol/L (22-26); BLOOD GAS METHEMOGLOBIN 1.5 % (0-2); BLOOD GAS O2 HGB SATURATION 93 % (90-100); BLOOD GAS OXYGEN CONTENT 12.3 Vol % (12.0-20.0); BLOOD GAS PCO2 35 mmHg (38-42); BLOOD GAS PO2 83 mmHg (61-120); BLOOD GAS TOTAL HGB 9.4 G/DL (12.0-16.0); TEMP CORR TO 98.6
[2017-05-03 09:49] LABS: CRITICAL VALUE NO; FIO2 60 %; OXYGEN DEVICE VENTILATOR
[2017-05-03 09:50] LABS: DRAW SITE ART LINE; STAT NO
[2017-05-03] MEDS: VASOPRESSIN INJ 40 UNITS in DEXTROSE 5% IN WATER 100ML INJ 98 ML IV SCH ×4 (10:03→23:51)
[2017-05-03] MEDS: PANTOPRAZOLE SODIUM 40 MG VIAL IV SCH (10:04)
[2017-05-03] MEDS: levETIRAcetam INJ 500 MG in SODIUM CHLORIDE 0.9% INJ 100 ML IV SCH ×2 (10:04→20:11)
[2017-05-03] MEDS: ASPIRIN 325 MG TAB PO SCH (10:05)
[2017-05-03] MEDS: DOCUSATE SODIUM 100 MG CAP PO SCH ×2 (10:05→20:11)
[2017-05-03] MEDS: METOCLOPRAMIDE HCL 10 MG/2 ML VIAL IV PUSH SCH ×3 (10:05→23:21)
[2017-05-03] MEDS: DEXT 5%-NACL 0.9% 1000 ML INJ 1,000 ML IV SCH ×2 (10:06→21:07)
[2017-05-03] MEDS: CHLORHEXIDINE 0.12% (ORAL KIT) 15 ML CUP MT SCH ×2 (10:06→20:10)
[2017-05-03 11:21] LABS: BICARBONATE 19.5 MEQ/L (21.0-32.0); POTASSIUM 3.8 MEQ/L (3.5-5.1)
[2017-05-03] MEDS: NOREPINEPHRINE INJ 16 MG in SODIUM CHLOR 0.9% 250 ML INJ 234 ML IV SCH (12:02)
[2017-05-03] MEDS: HYDROCORTISONE SOD SUCCINATE 100 MG VIAL IV PUSH SCH ×3 (12:11→23:21)
--- NOTE | 2017-05-03 12:32 | HHI.NSPN ---
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 Her MRI showed midline shift and was taken for emergent right decompressive craniectomy 04/27/17 with placement of ICP monitor. 04/28: pt seen this am during rounds: ICPs became elevated last evening and early this morning in the mid 20's. pt started on Versed drip with bolus of 23%. On Mannitol and 3% NS. ICPs now 11-14. Critical care aware will be initiating code cool. Unstable for repeat CT Head this am. 04/29: intubated and well sedated, hypothermic therapy. ICPs improved and stable overnight. 04/30: ICPs in the high teens. On max sedation. Elevated serums os and sodium levels. Increasing vent rate to decrease pCO2. Started rewarming. 05/01: slowly being rewarmed. ICPs high teens but stable. remains well sedated 05/02: ICPs better today in the mid teens. Well sedated. Febrile. 05/03: ICPs 11-17 overnight, currently 12. Versed off, and off hypothermic tx. ( Sakina Israel) Labs, Micro, & Vital Signs Results Date Time Temp Pulse Resp B/P Pulse Ox O2 Delivery O2 Flow Rate FiO2 05/03/17 12:04 97 60 05/03/17 09:15 96 60 05/03/17 06:00 96 05/03/17 04:24 100 60 05/03/17 04:00 95.4 97 24 144/68 100 05/03/17 04:00 96 05/03/17 04:00 60 05/03/17 02:00 92 05/03/17 01:12 100 60 05/03/17 00:00 60 05/03/17 00:00 91 05/03/17 00:00 95.2 91 24 152/73 99 05/02/17 22:36 95.0 93 24 157/77 100 05/02/17 22:25 98 60 05/02/17 22:00 94 05/02/17 20:43 95.2 94 24 161/78 100 05/02/17 20:07 99 60 05/02/17 20:00 95.2 97 24 147/69 99 05/02/17 20:00 60 05/02/17 20:00 96 05/02/17 18:00 96 05/02/17 16:00 60 05/02/17 16:00 95.7 94 23 153/59 95 05/02/17 16:00 94 05/02/17 15:30 93 45 05/02/17 14:00 98 05/02/17 12:31 95 45 05/03/17 07:00 Intake Total 8688 ml Output Total 6855.0 ml Balance 1833.0 ml Constitutional Vital Signs Date Time Temp Pulse Resp B/P Pulse Ox O2 Delivery O2 Flow Rate FiO2 05/03/17 12:04 97 60 05/03/17 09:15 96 60 05/03/17 06:00 96 05/03/17 04:24 100 60 05/03/17 04:00 95.4 97 24 144/68 100 05/03/17 04:00 96 05/03/17 04:00 60 05/03/17 02:00 92 05/03/17 01:12 100 60 05/03/17 00:00 60 05/03/17 00:00 91 05/03/17 00:00 95.2 91 24 152/73 99 05/02/17 22:36 95.0 93 24 157/77 100 05/02/17 22:25 98 60 05/02/17 22:00 94 05/02/17 20:43 95.2 94 24 161/78 100 05/02/17 20:07 99 60 05/02/17 20:00 95.2 97 24 147/69 99 05/02/17 20:00 60 05/02/17 20:00 96 05/02/17 18:00 96 05/02/17 16:00 60 05/02/17 16:00 95.7 94 23 153/59 95 05/02/17 16:00 94 05/02/17 15:30 93 45 05/02/17 14:00 98 05/02/17 12:31 95 45 05/03/17 07:00 Intake Total 8688 ml Output Total 6855.0 ml Balance 1833.0 ml (Sakina Israel) Review of Systems/Exam Exam Ms. [place]edo is intubated and currently well sedated on fentanyl and Diprivan. No eye opening. Right flap remains full, slightly softer to palpate today. ICPs 13. Left bolt intact, clean with iodine gauze dressing Cranial Nerves: Left pupil 4, right pupil 6, b/l nonreactive. Conjugate gaze. Motor: No response, very well sedated Generalized edema to extremities Bilateral plantar response silent. (Sakina Israel) Medical Decision Making MDM Remarks 42 year old female with large right hemispheric CVA with mass effect and midline shift, s/p right decompressive craniectomy with placement of ICP monitor 04/27/17 hypothermic therapy, rewarming (Sakina Israel) Plan Plan Remarks cont ICP monitor for f/u CT Head tomorrow am clear to start decreasing sedation with close ICP monitoring f/u serum os and sodium levels for hyperosmotic tx (Sakina Israel) Attending Statement The exam, history, and the medical decision-making described in the above note were completed with the assistance of the mid-level provider. I reviewed and agree with the findings presented. I attest that I had a [id number] encounter with the patient on the same day, and personally performed and documented my assessment and findings in the medical record. (Garry Nathan MD) Sakina Israel May 03, 2017 12:32 Garry Nathan MD May 08, 2017 19:15
--- NOTE | 2017-05-03 13:09 | HHI.CCPN ---
Subjective Remarks/Hospital Course This is a 42yF with unremarkable past medical history who presents to the [facility] emergency department with new-onset left-sided weakness and slurred speech. She is an employee of [employer] who had a witnessed onset of her symptoms at 12:45pm. In the [facility] ED she was immediately taken for non-contrasted head CT which was negative for acute hemorrhage. She was given iv tpa which was instituted 36 minutes after arrival, per my conversation with the health coordinator. She was then emergently transferred to [facility]. CT angiography demonstrated acute right m1 cut-off. She was taken by [facility] and arrived directly to the IR suite, where I met and evaluated the patient. Due to the acute nature of her illness and her dysarthria, a complete history is not obtainable. She does endorse right-sided headache, although denied any chest pain, shortness of breath. 04/27: Back from OR after right craniectomy for decompression s/p left MCA CVA. Heavily sedated. Some new history from a co-worker indicates that patient started taking oral contraceptive 2 months ago. 04/28: Continued problems with cerebral edema as expected. Push osmolality a little higher and restrict fluid. Tolerate pH mildly acidotic to avoid cerebral vascular constriction. 04/29: Osmolality in good range. ICP controlled. Hypothermia to 34 degrees. Raise to 35 slowly as long as ICP is acceptable. Unable to start tube feeds yet as gut motility will be poor at cooler temperature. 04/30: ICP control good. Osmolality acceptable. Temp to 35 degrees. 05/01: Raise temp to 36 degrees and hold. CXR with light basilar infiltrates, no leukocytosis. Heavily sedated for brain protection/ICP control. Persistent blood sugars 60s range - will start D5/NS at 30/hr. 05/02: vasopressor requirement uptrending. wbc uptrending as well. repeat head ct with persistent edema, although ICPs slightly improved. 05/03: slight improvement in vasopressors and lactate with ivf resuscitation. however, still persists on high doses of multiple vasopressors. ICPs stable. off versed. sputum growing chowdhury-sensitive e-coli. I performed critical care bedside echo this morning which demonstrated preserved biventricular function, no significant valvular lesions, ivc with 20% variability and measures at 1.6cm. by echo appears clinically euvolemic. Objective Vital Signs Date Time Temp Pulse Resp B/P Pulse Ox O2 Delivery O2 Flow Rate FiO2 05/03/17 12:04 97 60 05/03/17 06:00 96 05/03/17 04:00 95.4 24 144/68 Intake and Output 05/02/17 05/02/17 05/03/17 08:00 16:00 00:00 Intake Total 2029 ml 1627 ml 4764 ml Output Total 1050.0 ml 2780 ml 1775 ml Balance 979.0 ml -1153 ml 2989 ml Result Diagram: 05/03/17 0410 05/03/17 1030 Other Results Microbiology Date/Time Procedure Status Source Growth 05/01/17 06:58 Gram Stain - Final Complete Sputum Endotracheal 05/01/17 06:58 Sputum Culture - Final Complete Escherichia Coli Laboratory Tests Test 05/02/17 05/03/17 05/03/17 15:00 05:30 09:39 Blood Gas Puncture Site ART LINE ART LINE ART LINE Blood Gas Patient Temperature 98.6 98.6 98.6 Blood Gas HCO3 20 mmol/L 18 mmol/L 17 mmol/L (22-26) (22-26) (22-26) Blood Gas Base Excess -5.0 mmol/L -6.8 mmol/L -7.9 mmol/L (-2-2) (-2-2) (-2-2) Blood Gas Oxygen Saturation 86 % (90-100) 91 % (90-100) 93 % (90-100) Arterial Blood pH 7.30 7.32 7.31 (7.380-7.420) (7.380-7.420) (7.380-7.420) Arterial Blood Partial 42 mmHg (38-42) 37 mmHg (38-42) 35 mmHg (38-42) Pressure CO2 Arterial Blood Partial 64 mmHg 73 mmHg 83 mmHg Pressure O2 (61-120) (61-120) (61-120) Arterial Blood Oxygen Content 11.2 Vol % 11.4 Vol % 12.3 Vol % (12.0-20.0) (12.0-20.0) (12.0-20.0) Arterial Blood 0.7 % (0-4) 0.9 % (0-4) 0.8 % (0-4) Carboxyhemoglobin Arterial Blood Methemoglobin 1.3 % (0-2) 1.5 % (0-2) 1.5 % (0-2) Blood Gas Hemoglobin 9.1 G/DL 8.9 G/DL 9.4 G/DL (12.0-16.0) (12.0-16.0) (12.0-16.0) Oxygen Delivery Device VENTILATOR VENTILATOR VENTILATOR Blood Gas Ventilator Setting PRVC/AC Blood Gas Inspired Oxygen 45 % 60 % 60 % Imaging Last Impressions Neck CTA 04/26/17 1316 Signed Impressions: Service Date/Time: Wednesday, April 26, 2017 13:39 - CONCLUSION: 1. Standard 3 vessel arch anatomy. 2. Widely patent carotid arteries. 3. Dominant left vertebral artery. Vertebral arteries are patent bilaterally. 4. 5 mm right thyroid nodule. This can be further evaluated with ultrasound on an outpatient basis. Cyrus Orozco MD Head CTA 04/26/17 1316 Signed Impressions: Service Date/Time: Wednesday, April 26, 2017 13:39 - CONCLUSION: 1. Occlusion of the right M1 segment. Grossly intact mendoza-white matter differentiation with gross ASPECT score of 10/10. 2. Incidental finding of 5 mm right thyroid nodule. This can be further evaluated with ultrasound on an outpatient basis. Cyrus Orozco MD Head CT 04/26/17 0000 Signed Impressions: Service Date/Time: Wednesday, April 26, 2017 12:51 - CONCLUSION: Normal examination for a patient of this age. Jerry Torres MD Chest X-Ray 04/26/17 0000 Signed Impressions: Service Date/Time: Wednesday, April 26, 2017 14:01 - CONCLUSION: No acute cardiopulmonary disease radiographically. Cyrus Orozco MD Objective Remarks gen: middle-aged female, heavily sedated for brain protection. heent: mild facial edema resolving. neck: trachea midline. orally intubated. chest: few rhonchi, good air movement equal chest rise. PCO2 control good. cv: normal rate, regular rhythm. sinus by tele. no JVD. no m,r abd: soft, nontender, nondistended. no guarding. quiet. extr: no peripheral edema. distal pulses palpable, well perfused. neuro: RASS -5; Heavily sedated. Left pupil 2 mm, reacts. Right pupil 3 mm, reacts. Otherwise unresponsive as expected. A/P Assessment and Plan Assessment: 42yF with acute right M1 MCA CVA now s/p systemic TPA and attempted interventional mechanical thrombectomy. Her course is complicated by malignant cerebral edema requiring decompressive craniectomy and therapeutic hypothermia. She remains with significant cerebral edema, very critically ill, and with high vasopressor requirements. She persists in what appears to now be septic shock. Her lactate is slowly improving. We will add vancomycin to our empiric abx coverage and follow culture data. Her random cortisol is 6 which is inappropriately low for her critical illness so we will start empiric therapy for presumed adrenal insufficiency. She is very critically ill at this time. Plan by Systems: Neuro: Acute right M1 MCA CVA s/p systemic TPA and endovascular thrombectomy Dysarthria Left-sided hemiparesis Left-sided facial droop Malignant Cerebral Edema s/p Decompressive Craniectomy Elevated ICP -- q1h neuro checks -- no sedation vacation -- continue propofol, fentanyl -- off versed. -- repeat head CT 05/02: stable edema, slightly enlarged left lateral ventricle, evolving right hemispheric cva -- will remove cooling catheter. maintain temp 36 - 37 with cooling blanket. -- 3% nacl currently on hold. goal Na 145-155. -- serial bmps -- SBP goal 140 - 160. -- keppra for seizure ppx Respiratory: Acute hypoxic and Hypercarbic respiratory failure -- no SBT today given persistent cerebral edema -- wean fio2 for goal spo2 > 90% -- etco2 monitoring with q12h abg. goal pco2 35 - 40. -- vent bundle -- elevated HOB Cardiovascular Septic Shock Adrenal Insufficiency -- goal sbp 140 - 160 for cerebral perfusion -- levophed, phenylephrine titrated to obtain goal -- start vasopressin. -- trend lactates -- continue ivf 150cc/hr -- continue to hold lasix -- pulse contour analysis and cvp monitoring. Renal: Acute Kidney Injury -- likely secondary to intravascular volume depletion -- hold lasix -- continue ribera with strict i/o's -- trend Cr on daily bmp -- ivf as above. FEN/GI Acute protein calorie malnutrition- mild Intravascular volume depletion Hypernatremia Lactic Acidosis Anion-gap metabolic acidosis -- hold TF given high vasopressor requirements with elevated lactate -- ICU electrolyte protocol -- ivf resuscitation as above -- daily bmp -- hold on further diuresis. Heme/ID: Anemia secondary to acute blood loss Leukocytosis E. Coli Pneumonia, likely secondary to aspiration at time of stroke -- Zosyn 4.5 gm iv q6h -- add vancomycin with pharmacy dosing. -- sputum culture 05/01: e.coli, chowdhury sensitive -- urine, blood cultures 05/02 NGTD. -- daily cbc Endo: Hypoglycemia Adrenal Insufficiency -- continue d5NS @ 75cc/hr -- frequent glucose checks. -- hydrocortisone 150mg iv x 1 then 50mg iv q6h. Prophy: -- SCDs -- pepcid iv for gi prophylaxis Lines: -- LIJ TLC -- left femoral art line, will attempt to place radial arterial line and d/c femoral art line, though in the past, she has clotted radial arterial lines. Overall impression: Large distribution right MCA CVA with shift required decompressive craniectomy 04/27 in an attempt to rescue the dominant hemisphere. She is critically ill with an unstable neurological process and considerable cerebral edema. This patient remains critically ill with one or more organ systems which are or may become a threat to life. I have spent in excess of 77 minutes discontinuously in the care and management of this patient. This time is exclusive of procedures, and includes, but is not limited to, evaluation of the patient, review of the medical record, discussions with family, consultants, nursing staff, or respiratory therapy, and documentation in the medical record. Remi Freeman MD May 03, 2017 13:09
[2017-05-03 17:14] LABS: MAGNESIUM 1.8 MG/DL (1.5-2.5); POTASSIUM 5.5 MEQ/L (3.5-5.1)
--- NOTE | 2017-05-03 20:53 | HHI.PR ---
Review/Management Diagnosis right MCA stroke, s/p iv tpa and thrombectomy of right M1 thrombus. Plan continue asa, repeat CT in am Diagnosis/Plan: Subjective Subjective Comments No acute events reported Active Medications Current Medications Medications (Trade) Dose Ordered Sig/Elida Route Start Time Stop Time Status Last Admin Magnesium Oxide 800 mg 800 mg UNSCH PRN PO 04/26/17 14:15 Magnesium Sulfate 4 gm/Sodium Chloride 100 ml @ 50 mls/hr UNSCH PRN IV 04/26/17 14:15 Magnesium Sulfate 2 gm/Sodium Chloride 100 ml @ 50 mls/hr UNSCH PRN IV 04/26/17 14:15 Potassium Chloride 100 ml @ 50 mls/hr Q2H PRN IV 04/26/17 14:15 Potassium Chloride 100 ml @ 50 mls/hr Q2H PRN IV 04/26/17 14:15 04/27/17 13:31 Potassium Chloride 100 ml @ 50 mls/hr Q2H PRN IV 04/26/17 14:15 05/03/17 05:44 (KCl 40 Meq Premix Inj) 100 ml @ 25 mls/hr UNSCH PRN IV 04/26/17 14:15 05/03/17 04:56 (K-Phos) 2,000 mg Q4H PRN PO 04/26/17 14:15 04/28/17 05:25 Potassium Phosphate 2000 mg 2,000 mg UNSCH PRN PO/TUBE 04/26/17 14:15 (Sodium Phosphate Inj/NS 250 ml Inj) 250 ml @ 42 mls/hr UNSCH PRN IV 04/26/17 14:15 04/29/17 18:52 (D50w (Vial) Inj) 25 ml UNSCH PRN IV PUSH 04/26/17 14:15 05/03/17 06:49 (Protonix Inj) 40 mg DAILY IV 04/27/17 09:00 05/03/17 10:04 (Zofran Inj) 4 mg Q6H PRN IV 04/26/17 14:15 Miscellaneous Information 1 Q361D XX 04/26/17 14:15 (Chlorhexidine 2% Cloth) Taper DAILY@04 TOP 04/27/17 04:00 04/23/18 03:59 04/30/17 04:00 (Chlorhexidine 2% Cloth) 3 pack UNSCH PRN TOP 04/26/17 14:15 Senna/Docusate Sodium 1 tab 1 tab BID PO 04/26/17 21:00 05/03/17 09:00 (Cardene Inj/NS 250 ml Inj) 260 ml @ 0 mls/hr TITRATE IV 04/26/17 15:30 (Trandate Inj) 20 mg Q15M PRN IV PUSH 04/26/17 15:30 Hydralazine HCl 10 mg 10 mg Q30M PRN IV PUSH 04/26/17 15:30 Fentanyl Citrate 250 ml @ 0 mls/hr TITRATE IV 04/26/17 21:45 05/03/17 10:04 Propofol 100 ml @ 0 mls/hr TITRATE IV 04/26/17 22:00 05/03/17 16:22 (Keppra Inj/NS Inj) 105 ml @ 400 mls/hr Q12H IV 04/27/17 21:00 05/03/17 20:11 (Dulcolax Supp) 10 mg DAILY PRN RECTAL 04/27/17 10:30 05/01/17 08:29 (Colace) 100 mg BID PO 04/27/17 21:00 05/03/17 10:05 Calcium Gluconate 1 gm 1 gm UNSCH PRN IV 04/27/17 10:30 04/30/17 19:04 Potassium Chloride 100 ml @ 50 mls/hr UNSCH PRN IV 04/27/17 10:30 (Magnesium Sulfate Inj/NS Inj) 108 ml @ 108 mls/hr UNSCH PRN IV 04/27/17 10:30 05/01/17 17:56 (Morphine Inj) 2 mg Q2H PRN IV PUSH 04/27/17 10:30 (Morphine Inj) 4 mg Q2H PRN IV PUSH 04/27/17 10:30 05/02/17 05:29 (Peridex 0.12% Liq) 15 ml BID@08,20 MT 04/27/17 20:00 05/03/17 20:10 Fentanyl Citrate 100 mcg 100 mcg Q1H PRN IV PUSH 04/28/17 02:00 05/02/17 05:29 (Versed Inj) 100 ml @ 0 mls/hr TITRATE IV 04/28/17 07:00 05/03/17 02:37 (Lacrilube Opht Oint) APPLY UNDER BOTH EYELIDS BID EACH EYE 04/28/17 21:00 05/03/17 20:11 Lorazepam 1 mg 1 mg Q1H PRN IV 04/28/17 11:15 Miscellaneous Information ml @ 0 mls/hr UNSCH IV 04/28/17 11:15 (NS Flush) 2 ml UNSCH PRN IV FLUSH 04/28/17 11:15 05/02/17 08:14 (NS Flush) 2 ml UNSCH PRN IV FLUSH 04/28/17 11:15 Artificial Tears 1 applic 1 applic Q4H PRN EACH EYE 04/28/17 11:15 05/01/17 19:49 (Potassium Phosphate Inj/NS 250 ml Inj) 260 ml @ 43.333 mls/ hr UNSCH PRN IV 04/30/17 09:00 Metoclopramide HCl 10 mg 10 mg Q8H IV PUSH 05/01/17 08:00 05/03/17 16:22 Phenylephrine HCl 160 mg/Sodium Chloride 500 ml @ 0 mls/hr TITRATE IV 05/01/17 15:00 05/03/17 12:02 Norepinephrine Bitartrate 16 mg/ Sodium Chloride 250 ml @ 0 mls/hr TITRATE IV 05/01/17 21:45 05/03/17 12:02 Sodium Chloride 500 ml @ 5 mls/hr Q24H IV 05/02/17 04:54 05/02/17 21:41 (D5W-NS 1000 ml Inj) 1,000 ml @ 75 mls/hr [id number] IV 05/02/17 05:45 05/03/17 10:06 (Ofirmev Inj) 1,000 mg Q6H PRN IV 05/02/17 09:45 Aspirin 325 mg 325 mg DAILY PO 05/03/17 09:00 05/03/17 10:05 Sodium Chloride 1,000 ml @ 75 mls/hr [id number] IV 05/02/17 17:15 05/03/17 18:06 Piperacillin Sod/ Tazobactam Sod 100 ml @ 200 mls/hr Q6H IV 05/02/17 18:00 05/03/17 18:05 Pharmacy Profile Note 0 ml @ 0 mls/hr UNSCH OTHER 05/03/17 08:00 (Pitressin Inj/ D5W 100 ml Inj) 100 ml @ 4.5 mls/hr [id number] IV 05/03/17 08:00 05/03/17 10:03 (SoluCORTEF INJ) 50 mg Q6HR IV PUSH 05/03/17 12:00 05/03/17 18:05 Allergies Allergies Coded Allergies Shellfish (Verified Allergy, Unknown, 04/26/17) Exam I&O / VS 05/02/17 05/02/17 05/03/17 15:00 23:00 07:00 Intake Total 1627 ml 4764 ml 2297 ml Output Total 3380.0 ml 1775 ml 1700 ml Balance -1753.0 ml 2989 ml 597 ml IV Total 1445 ml 4514 ml 2297 ml Tube Feeding 182 ml Packed Cells 250 ml Output Urine Total 2175 ml 1525 ml 1550 ml Gastric Drainage Total 600 ml 250 ml 150 ml Tube Feeding Residual Discard 600.0 ml Drainage Total 5 ml # Bowel Movements 1 Vital Signs Date Time Temp Pulse Resp B/P Pulse Ox O2 Delivery O2 Flow Rate FiO2 05/03/17 20:13 98 60 05/03/17 20:00 83 05/03/17 20:00 97.3 84 24 140/87 99 05/03/17 20:00 60 05/03/17 18:00 90 05/03/17 17:27 98 60 05/03/17 16:00 95 05/03/17 16:00 60 05/03/17 16:00 97.9 95 24 154/81 96 05/03/17 14:00 96 05/03/17 12:04 97 60 05/03/17 12:00 96.3 93 24 139/68 98 05/03/17 12:00 93 05/03/17 12:00 60 05/03/17 10:00 94 05/03/17 09:15 96 60 05/03/17 08:00 60 05/03/17 08:00 96 05/03/17 08:00 95.0 96 24 123/56 94 05/03/17 06:00 96 05/03/17 04:24 100 60 05/03/17 04:00 95.4 97 24 144/68 100 05/03/17 04:00 96 05/03/17 04:00 60 05/03/17 02:00 92 05/03/17 01:12 100 60 05/03/17 00:00 60 05/03/17 00:00 91 05/03/17 00:00 95.2 91 24 152/73 99 05/02/17 22:36 95.0 93 24 157/77 100 05/02/17 22:25 98 60 05/02/17 22:00 94 Exam Comments sedated pupils 4 mm right nonreactive, 2 mm left and reactive no spontaneous limb movement and no withdrawal Objective Micro and Labs Laboratory Tests Test 05/02/17 05/03/17 05/03/17 05/03/17 22:51 04:10 05:30 07:11 Sodium Level 157 156 Potassium Level 3.3 2.7 Chloride Level 126 126 Carbon Dioxide Level 19.9 20.1 Anion Gap 11 10 Blood Urea Nitrogen 4 5 Creatinine 1.26 1.30 Estimat Glomerular Filtration 46 44 Rate Random Glucose 91 75 Calcium Level 7.4 7.6 Protein Corrected Calcium 8.9 Total Protein 4.5 White Blood Count 14.9 Red Blood Count 3.01 Hemoglobin 9.2 Hematocrit 27.6 Mean Corpuscular Volume 91.7 Mean Corpuscular Hemoglobin 30.5 Mean Corpuscular Hemoglobin 33.3 Concent Red Cell Distribution Width 15.1 Platelet Count 71 Mean Platelet Volume 9.1 Lactic Acid Level 2.2 Phosphorus Level 3.1 Magnesium Level 1.8 Blood Gas Puncture Site ART LINE Blood Gas Patient Temperature 98.6 Blood Gas HCO3 18 Blood Gas Base Excess -6.8 Blood Gas Oxygen Saturation 91 Arterial Blood pH 7.32 Arterial Blood Partial 37 Pressure CO2 Arterial Blood Partial 73 Pressure O2 Arterial Blood Oxygen Content 11.4 Arterial Blood 0.9 Carboxyhemoglobin Arterial Blood Methemoglobin 1.5 Blood Gas Hemoglobin 8.9 Oxygen Delivery Device VENTILATOR Blood Gas Ventilator Setting Blood Gas Inspired Oxygen 60 Random Cortisol 6.4 Test 05/03/17 05/03/17 05/03/17 05/03/17 09:39 10:30 13:05 16:15 Blood Gas Puncture Site ART LINE Blood Gas Patient Temperature 98.6 Blood Gas HCO3 17 Blood Gas Base Excess -7.9 Blood Gas Oxygen Saturation 93 Arterial Blood pH 7.31 Arterial Blood Partial 35 Pressure CO2 Arterial Blood Partial 83 Pressure O2 Arterial Blood Oxygen Content 12.3 Arterial Blood 0.8 Carboxyhemoglobin Arterial Blood Methemoglobin 1.5 Blood Gas Hemoglobin 9.4 Oxygen Delivery Device VENTILATOR Blood Gas Ventilator Setting Blood Gas Inspired Oxygen 60 Sodium Level 159 152 Potassium Level 3.8 5.5 Chloride Level 128 125 Carbon Dioxide Level 19.5 20.0 Anion Gap 12 7 Blood Urea Nitrogen 5 6 Creatinine 1.31 1.38 Estimat Glomerular Filtration 44 42 Rate Random Glucose 72 104 Calcium Level 7.6 7.8 Lactic Acid Level 2.0 Phosphorus Level 5.2 Magnesium Level 1.8 Date/Time Procedure Status Source Growth 05/02/17 13:30 Aerobic Blood Culture - Preliminary Resulted Blood Peripheral NO GROWTH IN 1 DAY 05/02/17 13:30 Anaerobic Blood Culture - Preliminary Resulted Blood Peripheral NO GROWTH IN 1 DAY 05/01/17 06:58 Gram Stain - Final Complete Sputum Endotracheal 05/01/17 06:58 Sputum Culture - Final Complete Escherichia Coli Santana Gomez PhD May 03, 2017 20:53
[2017-05-03 22:46] LABS: BLOOD GAS BASE EXCESS -8.5 mmol/L (-2-2); BLOOD GAS CARBOXYHEMOGLOBIN 0.9 % (0-4); BLOOD GAS HCO3 16 mmol/L (22-26); BLOOD GAS METHEMOGLOBIN 1.4 % (0-2); BLOOD GAS O2 HGB SATURATION 95 % (90-100); BLOOD GAS OXYGEN CONTENT 11.9 Vol % (12.0-20.0); BLOOD GAS PCO2 29 mmHg (38-42); BLOOD GAS PO2 91 mmHg (61-120); BLOOD GAS TOTAL HGB 8.8 G/DL (12.0-16.0); TEMP CORR TO 96.4
[2017-05-03 22:48] LABS: CRITICAL VALUE YES; DRAW SITE ART LINE; FIO2 60 %; OXYGEN DEVICE VENTILATOR; STAT NO; VENT SETTINGS PRVC/AC
[2017-05-03 23:51] LABS: BICARBONATE 19.3 MEQ/L (21.0-32.0); POTASSIUM 5.3 MEQ/L (3.5-5.1)
[2017-05-04] VITALS (19 sets, daily range): BP systolic 113–153; BP diastolic 67–86; PULSE 63–81; RESP 18–22; TEMP 96.2–98.5; O2SAT 94–100
[2017-05-04 00:05] LABS: CALCIUM-PROTEIN CORRECTED 8.7 MG/DL (8.5-10.1)
[2017-05-04] MEDS: PHENYLEPHRINE INJ 160 MG in SODIUM CHLORID 0.9% 500 ML INJ 484 ML IV SCH (02:41)
[2017-05-04] MEDS: NOREPINEPHRINE INJ 16 MG in SODIUM CHLOR 0.9% 250 ML INJ 234 ML IV SCH (02:41)
[2017-05-04] MEDS: DEXT 5%-NACL 0.9% 1000 ML INJ 1,000 ML IV SCH ×2 (02:47→11:43)
[2017-05-04] MEDS: INSULIN NovoLIN REGULAR SUPPLEMENTAL SCALE SQ SCH ×5 (03:00→21:00)
[2017-05-04 03:57] LABS: HEMATOCRIT 26.2 % (35.0-46.0); MEAN CELL VOLUME 91.9 FL (80.0-100.0); MEAN CORPUSCULAR HGB CONC 32.7 % (32.0-36.0); PLATELET COUNT 69 TH/MM3 (150-450); RED BLOOD COUNT 2.85 MIL/MM3 (4.00-5.30); RED CELL DISTRIBUTION WIDTH 15.7 % (11.6-17.2); WHITE BLOOD COUNT 15.6 TH/MM3 (4.0-11.0)
[2017-05-04] MEDS: CHLORHEXIDINE GLUCONATE 2 % 1 PACK (2 CLOTHS) TOP SCH (04:00)
[2017-05-04 04:03] LABS: REVIEW FLAG FINAL
[2017-05-04 04:35] LABS: BICARBONATE 20.2 MEQ/L (21.0-32.0); POTASSIUM 5.1 MEQ/L (3.5-5.1)
[2017-05-04] MEDS: 3% SALINE INJ 500 ML IV SCH (04:54)
--- NOTE | 2017-05-04 04:57 | RADRPT ---
EXAM DATE/TIME: 05/04/2017 04:34 [place] COMPARISON: No previous studies available for comparison. INDICATIONS : Follow up hydrocephalus. RADIATION DOSE: 50.66 CTDIvol (mGy) MEDICAL HISTORY : None SURGICAL HISTORY : None. ENCOUNTER: Subsequent ACUITY: 1 day PAIN SCALE: Non-responsive LOCATION: cranial TECHNIQUE: Multiple contiguous axial images were obtained of the head. Using automated exposure control and adj ustment of the mA and/or kV according to patient size, radiation dose was kept as low as reasonably a chievable to obtain optimal diagnostic quality images. FINDINGS: CEREBRUM: Patient's had a right-sided temporal craniotomy with a large right MCA stroke continuing to involve . There is significant brain herniating through the defect with considerable edema and slight shift f rom [id number] at the level of the third ventricle . The left sided lateral ventricle may be slig htly smaller than on the fifth. No evidence of new hemorrhage or acute infarction. Some mixed areas of density in the right centrum semi-ovale region and basal ganglia continuing to evolve as hemorrhag e No extra-axial fluid collections are seen. POSTERIOR FOSSA: The cerebellum and brainstem are intact. The 4th ventricle is midline. The cerebellopontine angle i s unremarkable. EXTRACRANIAL: The visualized portion of the orbits is intact. SKULL: The calvaria is intact. No evidence of skull fracture. CONCLUSION: Continued evolution of the large right MCA stroke with significant herniation of soft tissue out the craniotomy defect. Continued significant mass effect and evolving areas of small hemorrhage. The lef t lateral ventricle may be slightly more decompressed today than on the fifth Bertin White MD on May 04, 2017 at 4:53 Board Certified Radiologist. This report was verified electronically.
[2017-05-04] MEDS: PIPERACIL-TAZO 4.5 GM PREMIX 100 ML IV SCH ×4 (05:49→23:45)
[2017-05-04] MEDS: fentaNYL DRIP 250 ML IV SCH (05:49)
[2017-05-04] MEDS: HYDROCORTISONE SOD SUCCINATE 100 MG VIAL IV PUSH SCH ×4 (05:49→23:45)
[2017-05-04] MEDS: VASOPRESSIN INJ 40 UNITS in DEXTROSE 5% IN WATER 100ML INJ 98 ML IV SCH ×4 (05:49→23:46)
[2017-05-04 06:01] LABS: BLOOD GAS BASE EXCESS -8.3 mmol/L (-2-2); BLOOD GAS CARBOXYHEMOGLOBIN 0.8 % (0-4); BLOOD GAS HCO3 17 mmol/L (22-26); BLOOD GAS METHEMOGLOBIN 1.1 % (0-2); BLOOD GAS O2 HGB SATURATION 94 % (90-100); BLOOD GAS OXYGEN CONTENT 10.9 Vol % (12.0-20.0); BLOOD GAS PCO2 34 mmHg (38-42); BLOOD GAS PO2 85 mmHg (61-120); BLOOD GAS TOTAL HGB 8.2 G/DL (12.0-16.0); CRITICAL VALUE NO; OXYGEN DEVICE VENTILATOR; TEMP CORR TO 98.6
[2017-05-04 06:02] LABS: DRAW SITE ART LINE; FIO2 60 %; STAT NO; VENT SETTINGS PRVC/AC
[2017-05-04] MEDS: SODIUM CHLOR 0.9% 1000 ML INJ 1,000 ML IV SCH ×2 (06:09→09:40)
[2017-05-04 07:00] LABS: BLOOD, URINE SMALL (NEG); GLUCOSE,URINE NEG (NEG); KETONE, URINE NEG (NEG); MUCUS URINE FEW /lpf (OCC); NITRITE,URINE NEG (NEG); PH, URINE 5.5 (5.0-8.5); SQUAMOUS EPITHELIAL CELL URINE 1 /hpf (0-5); URINE COLOR YELLOW (YELLW/STRAW)
[2017-05-04] MEDS: DOCUSATE SODIUM 100 MG CAP PO SCH ×2 (09:00→21:03)
[2017-05-04] MEDS: levETIRAcetam INJ 500 MG in SODIUM CHLORIDE 0.9% INJ 100 ML IV SCH ×2 (09:38→21:03)
[2017-05-04] MEDS: ASPIRIN 325 MG TAB PO SCH (09:38)
[2017-05-04] MEDS: PANTOPRAZOLE SODIUM 40 MG VIAL IV SCH (09:39)
[2017-05-04] MEDS: METOCLOPRAMIDE HCL 10 MG/2 ML VIAL IV PUSH SCH ×3 (09:39→23:45)
[2017-05-04] MEDS: ARTIFICIAL TEARS OPTH OINT 3.5 APPLIC/3.5 GM TUBO EACH EYE SCH ×2 (09:39→23:32)
[2017-05-04] MEDS: DOCUSATE SODIUM 50 MG/SENNA 8.6 MG TAB PO SCH ×2 (09:39→21:03)
[2017-05-04] MEDS: CHLORHEXIDINE 0.12% (ORAL KIT) 15 ML CUP MT SCH ×2 (09:39→21:04)
--- NOTE | 2017-05-04 09:47 | PD.CONS ---
HPI Service Rehabilitation Medicine Consult Requested By Reason for Consult Comprehensive rehabilitation evaluation. Primary Care Physician Tenzin Villalba MD Past Family Social History Allergies: Coded Allergies: Shellfish (Verified Allergy, Unknown, 04/26/17) Current Medications Current Medications Medications (Trade) Dose Ordered Sig/Elida Route Start Time Stop Time Status Last Admin Magnesium Oxide 800 mg 800 mg UNSCH PRN PO 04/26/17 14:15 Magnesium Sulfate 4 gm/Sodium Chloride 100 ml @ 50 mls/hr UNSCH PRN IV 04/26/17 14:15 Magnesium Sulfate 2 gm/Sodium Chloride 100 ml @ 50 mls/hr UNSCH PRN IV 04/26/17 14:15 Potassium Chloride 100 ml @ 50 mls/hr Q2H PRN IV 04/26/17 14:15 Potassium Chloride 100 ml @ 50 mls/hr Q2H PRN IV 04/26/17 14:15 04/27/17 13:31 Potassium Chloride 100 ml @ 50 mls/hr Q2H PRN IV 04/26/17 14:15 05/03/17 05:44 (KCl 40 Meq Premix Inj) 100 ml @ 25 mls/hr UNSCH PRN IV 04/26/17 14:15 05/03/17 04:56 (K-Phos) 2,000 mg Q4H PRN PO 04/26/17 14:15 04/28/17 05:25 Potassium Phosphate 2000 mg 2,000 mg UNSCH PRN PO/TUBE 04/26/17 14:15 (Sodium Phosphate Inj/NS 250 ml Inj) 250 ml @ 42 mls/hr UNSCH PRN IV 04/26/17 14:15 04/29/17 18:52 (D50w (Vial) Inj) 25 ml UNSCH PRN IV PUSH 04/26/17 14:15 05/03/17 06:49 (Protonix Inj) 40 mg DAILY IV 04/27/17 09:00 05/04/17 09:39 (Zofran Inj) 4 mg Q6H PRN IV 04/26/17 14:15 Miscellaneous Information 1 Q361D XX 04/26/17 14:15 (Chlorhexidine 2% Cloth) Taper DAILY@04 TOP 04/27/17 04:00 04/23/18 03:59 04/30/17 04:00 (Chlorhexidine 2% Cloth) 3 pack UNSCH PRN TOP 04/26/17 14:15 Senna/Docusate Sodium 1 tab 1 tab BID PO 04/26/17 21:00 05/04/17 09:39 (Cardene Inj/NS 250 ml Inj) 260 ml @ 0 mls/hr TITRATE IV 04/26/17 15:30 (Trandate Inj) 20 mg Q15M PRN IV PUSH 04/26/17 15:30 Hydralazine HCl 10 mg 10 mg Q30M PRN IV PUSH 04/26/17 15:30 Fentanyl Citrate 250 ml @ 0 mls/hr TITRATE IV 04/26/17 21:45 05/04/17 05:49 Propofol 100 ml @ 0 mls/hr TITRATE IV 04/26/17 22:00 05/03/17 23:20 (Keppra Inj/NS Inj) 105 ml @ 400 mls/hr Q12H IV 04/27/17 21:00 05/04/17 09:38 (Dulcolax Supp) 10 mg DAILY PRN RECTAL 04/27/17 10:30 05/01/17 08:29 (Colace) 100 mg BID PO 04/27/17 21:00 05/03/17 10:05 Calcium Gluconate 1 gm 1 gm UNSCH PRN IV 04/27/17 10:30 04/30/17 19:04 Potassium Chloride 100 ml @ 50 mls/hr UNSCH PRN IV 04/27/17 10:30 (Magnesium Sulfate Inj/NS Inj) 108 ml @ 108 mls/hr UNSCH PRN IV 04/27/17 10:30 05/01/17 17:56 (Morphine Inj) 2 mg Q2H PRN IV PUSH 04/27/17 10:30 (Morphine Inj) 4 mg Q2H PRN IV PUSH 04/27/17 10:30 05/02/17 05:29 (Peridex 0.12% Liq) 15 ml BID@08,20 MT 04/27/17 20:00 05/04/17 09:39 Fentanyl Citrate 100 mcg 100 mcg Q1H PRN IV PUSH 04/28/17 02:00 05/02/17 05:29 (Versed Inj) 100 ml @ 0 mls/hr TITRATE IV 04/28/17 07:00 05/03/17 02:37 (Lacrilube Opht Oint) APPLY UNDER BOTH EYELIDS BID EACH EYE 04/28/17 21:00 05/04/17 09:39 Lorazepam 1 mg 1 mg Q1H PRN IV 04/28/17 11:15 Miscellaneous Information ml @ 0 mls/hr UNSCH IV 04/28/17 11:15 (NS Flush) 2 ml UNSCH PRN IV FLUSH 04/28/17 11:15 05/02/17 08:14 (NS Flush) 2 ml UNSCH PRN IV FLUSH 04/28/17 11:15 Artificial Tears 1 applic 1 applic Q4H PRN EACH EYE 04/28/17 11:15 05/01/17 19:49 (Potassium Phosphate Inj/NS 250 ml Inj) 260 ml @ 43.333 mls/ hr UNSCH PRN IV 04/30/17 09:00 Metoclopramide HCl 10 mg 10 mg Q8H IV PUSH 05/01/17 08:00 05/04/17 09:39 Phenylephrine HCl 160 mg/Sodium Chloride 500 ml @ 0 mls/hr TITRATE IV 05/01/17 15:00 05/04/17 02:41 Norepinephrine Bitartrate 16 mg/ Sodium Chloride 250 ml @ 0 mls/hr TITRATE IV 05/01/17 21:45 05/04/17 02:41 Sodium Chloride 500 ml @ 5 mls/hr Q24H IV 05/02/17 04:54 05/02/17 21:41 (D5W-NS 1000 ml Inj) 1,000 ml @ 75 mls/hr [id number] IV 05/02/17 05:45 05/04/17 02:47 (Ofirmev Inj) 1,000 mg Q6H PRN IV 05/02/17 09:45 Aspirin 325 mg 325 mg DAILY PO 05/03/17 09:00 05/04/17 09:38 Sodium Chloride 1,000 ml @ 75 mls/hr [id number] IV 05/02/17 17:15 05/04/17 09:40 Piperacillin Sod/ Tazobactam Sod 100 ml @ 200 mls/hr Q6H IV 05/02/17 18:00 05/04/17 05:49 Pharmacy Profile Note 0 ml @ 0 mls/hr UNSCH OTHER 05/03/17 08:00 (Pitressin Inj/ D5W 100 ml Inj) 100 ml @ 4.5 mls/hr [id number] IV 05/03/17 08:00 05/03/17 23:51 Hydrocortisone Sodium Succinate 50 mg 50 mg Q6HR IV PUSH 05/03/17 12:00 05/04/17 05:49 (Vancomycin Inj/ NS 250 ml Inj) 262.5 ml @ 250 mls/hr Q24H IV 05/04/17 11:00 Miscellaneous Information SPECIFIC LAB TO BE DRAWN:VANCOMYCIN TROUGH DATE TO... ONCE ONCE .XX 05/06/17 10:45 05/06/17 10:46 Exam I&O / VS 05/03/17 05/03/17 05/04/17 15:00 23:00 07:00 Intake Total 2823 ml 2124 ml 1580 ml Output Total 2000 ml 650 ml 400 ml Balance 823 ml 1474 ml 1180 ml IV Total 2823 ml 2124 ml 1580 ml Output Urine Total 1300 ml 550 ml 300 ml Stool Total 600 ml Gastric Drainage Total 100 ml 100 ml 100 ml Vital Signs Date Time Temp Pulse Resp B/P Pulse Ox O2 Delivery O2 Flow Rate FiO2 05/04/17 07:44 96 60 05/04/17 06:00 71 05/04/17 04:45 99 60 05/04/17 04:00 98.5 80 20 129/67 94 05/04/17 04:00 60 05/04/17 04:00 67 05/04/17 02:00 81 05/04/17 00:14 99 60 05/04/17 00:00 73 05/04/17 00:00 96.2 74 18 129/72 99 05/04/17 00:00 60 05/03/17 22:00 73 05/03/17 20:13 98 60 05/03/17 20:00 83 05/03/17 20:00 97.3 84 24 140/87 99 05/03/17 20:00 60 05/03/17 18:00 90 05/03/17 17:27 98 60 05/03/17 16:00 95 05/03/17 16:00 60 05/03/17 16:00 97.9 95 24 154/81 96 05/03/17 14:00 96 05/03/17 12:04 97 60 05/03/17 12:00 96.3 93 24 139/68 98 05/03/17 12:00 93 05/03/17 12:00 60 05/03/17 10:00 94 Assessment and Plan Diagnosis: (1) CVA (cerebral vascular accident) CVA mechanism: unspecified Qualified Code: I63.9 - Cerebrovascular accident (CVA), unspecified mechanism Assessment Plan 1. PT/OT on hold until medical/neurological status allows 2. Will follow regarding rehabilitation needs while hospitalized and at discharge in conjunction with case management. Rehab plan of care discussed with patient's brother and questions answered 3. SCDs in place for DVT prophylaxis 4. Monitor skin carefully and continue to reposition Thank you for this consult Fany Dupont MD May 04, 2017 09:47
[2017-05-04] MEDS ORDERED: VANCOMYCIN INJ 1,250 MG in SODIUM CHLOR 0.9% 250 ML INJ 250 ML IV SCH (11:00)
--- NOTE | 2017-05-04 11:09 | HHI.NSPN ---
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 Her MRI showed midline shift and was taken for emergent right decompressive craniectomy 04/27/17 with placement of ICP monitor. 04/28: pt seen this am during rounds: ICPs became elevated last evening and early this morning in the mid 20's. pt started on Versed drip with bolus of 23%. On Mannitol and 3% NS. ICPs now 11-14. Critical care aware will be initiating code cool. Unstable for repeat CT Head this am. 04/29: intubated and well sedated, hypothermic therapy. ICPs improved and stable overnight. 04/30: ICPs in the high teens. On max sedation. Elevated serums os and sodium levels. Increasing vent rate to decrease pCO2. Started rewarming. 05/01: slowly being rewarmed. ICPs high teens but stable. remains well sedated 05/02: ICPs better today in the mid teens. Well sedated. Febrile. 05/03: ICPs 11-17 overnight, currently 12. Versed off, and off hypothermic tx. 05/04: stable ICPs overnight, no changes to neuro check (Sakina Israel) Labs, Micro, & Vital Signs Results Date Time Temp Pulse Resp B/P Pulse Ox O2 Delivery O2 Flow Rate FiO2 05/04/17 10:30 97 60 05/04/17 10:00 71 05/04/17 08:00 97.9 71 22 149/81 96 05/04/17 08:00 71 05/04/17 08:00 60 05/04/17 07:44 96 60 05/04/17 06:00 71 05/04/17 04:45 99 60 05/04/17 04:00 98.5 80 20 129/67 94 05/04/17 04:00 60 05/04/17 04:00 67 05/04/17 02:00 81 05/04/17 00:14 99 60 05/04/17 00:00 73 05/04/17 00:00 96.2 74 18 129/72 99 05/04/17 00:00 60 05/03/17 22:00 73 05/03/17 20:13 98 60 05/03/17 20:00 83 05/03/17 20:00 97.3 84 24 140/87 99 05/03/17 20:00 60 05/03/17 18:00 90 05/03/17 17:27 98 60 05/03/17 16:00 95 05/03/17 16:00 60 05/03/17 16:00 97.9 95 24 154/81 96 05/03/17 14:00 96 05/03/17 12:04 97 60 05/03/17 12:00 96.3 93 24 139/68 98 05/03/17 12:00 93 05/03/17 12:00 60 05/04/17 07:00 Intake Total 6527 ml Output Total 3050 ml Balance 3477 ml Constitutional Vital Signs Date Time Temp Pulse Resp B/P Pulse Ox O2 Delivery O2 Flow Rate FiO2 05/04/17 10:30 97 60 05/04/17 10:00 71 05/04/17 08:00 97.9 71 22 149/81 96 05/04/17 08:00 71 05/04/17 08:00 60 05/04/17 07:44 96 60 05/04/17 06:00 71 05/04/17 04:45 99 60 05/04/17 04:00 98.5 80 20 129/67 94 05/04/17 04:00 60 05/04/17 04:00 67 05/04/17 02:00 81 05/04/17 00:14 99 60 05/04/17 00:00 73 05/04/17 00:00 96.2 74 18 129/72 99 05/04/17 00:00 60 05/03/17 22:00 73 05/03/17 20:13 98 60 05/03/17 20:00 83 05/03/17 20:00 97.3 84 24 140/87 99 05/03/17 20:00 60 05/03/17 18:00 90 05/03/17 17:27 98 60 05/03/17 16:00 95 05/03/17 16:00 60 05/03/17 16:00 97.9 95 24 154/81 96 05/03/17 14:00 96 05/03/17 12:04 97 60 05/03/17 12:00 96.3 93 24 139/68 98 05/03/17 12:00 93 05/03/17 12:00 60 05/04/17 07:00 Intake Total 6527 ml Output Total 3050 ml Balance 3477 ml (Sakina Israel) Review of Systems/Exam Exam Ms. Toledo is intubated and sedated on fentanyl and Diprivan which is being decreased. No eye opening. Right flap remains full, slightly softer to palpate today. Left bolt removed with steri strips place, bolt site is clean, dry, no redness, swelling or signs of infection. Surgical wound healing well. clean and dry. Cranial Nerves: Left pupil 4, right pupil 6, b/l nonreactive. Conjugate gaze. Motor: No response, very well sedated Generalized edema to extremities Bilateral plantar response silent. (Sakina Israel) Medications Current Medications Current Medications Medications (Trade) Dose Ordered Sig/Elida Route PRN Reason Start Time Stop Time Status Last Admin Dose Admin Magnesium Oxide 800 mg 800 mg UNSCH PRN PO For Magnesium 1.2 - 1.6 mg/dL 04/26/17 14:15 Magnesium Sulfate 4 gm/Sodium Chloride 100 ml @ 50 mls/hr UNSCH PRN IV For Magnesium 0.9 - 1.1 mg/dL 04/26/17 14:15 Magnesium Sulfate 2 gm/Sodium Chloride 100 ml @ 50 mls/hr UNSCH PRN IV For Magnesium 1.2 - 1.6 mg/dL 04/26/17 14:15 Potassium Chloride 100 ml @ 50 mls/hr Q2H PRN IV For Potassium 2.8 - 3.2 mEq/L 04/26/17 14:15 Potassium Chloride 100 ml @ 50 mls/hr Q2H PRN IV For Potassium 3.3 - 3.5 mEq/L 04/26/17 14:15 04/27/17 13:31 Potassium Chloride 100 ml @ 50 mls/hr Q2H PRN IV For Potassium 2.8 - 3.2 mEq/L 04/26/17 14:15 05/03/17 05:44 Potassium Chloride (KCl 40 Meq Premix Inj) 100 ml @ 25 mls/hr UNSCH PRN IV For Potassium 3.3 - 3.5 mEq/L 04/26/17 14:15 05/03/17 04:56 Potassium Phosphate (K-Phos) 2,000 mg Q4H PRN PO For Phosphorus < 2.5 mg/dL 04/26/17 14:15 04/28/17 05:25 Potassium Phosphate 2000 mg 2,000 mg UNSCH PRN PO/TUBE SEE LABEL COMMENTS 04/26/17 14:15 Sodium Phosphate/ Sodium Chloride (Sodium Phosphate Inj/NS 250 ml Inj) 250 ml @ 42 mls/hr UNSCH PRN IV For Phosphorus < 2.5 mg/dL 04/26/17 14:15 04/29/17 18:52 Dextrose (D50w (Vial) Inj) 25 ml UNSCH PRN IV PUSH HYPOGLYCEMIA-SEE COMMENTS 04/26/17 14:15 05/03/17 06:49 Pantoprazole Sodium (Protonix Inj) 40 mg DAILY IV 04/27/17 09:00 05/04/17 09:39 Ondansetron HCl (Zofran Inj) 4 mg Q6H PRN IV NAUSEA OR VOMITING 04/26/17 14:15 Miscellaneous Information 1 Q361D XX 04/26/17 14:15 Chlorhexidine Gluconate (Chlorhexidine 2% Cloth) Taper DAILY@04 TOP 04/27/17 04:00 04/23/18 03:59 04/30/17 04:00 Chlorhexidine Gluconate (Chlorhexidine 2% Cloth) 3 pack UNSCH PRN TOP HYGIENIC CARE 04/26/17 14:15 Senna/Docusate Sodium 1 tab 1 tab BID PO 04/26/17 21:00 05/04/17 09:39 Nicardipine HCl/ Sodium Chloride (Cardene Inj/NS 250 ml Inj) 260 ml @ 0 mls/hr TITRATE IV 04/26/17 15:30 Labetalol HCl (Trandate Inj) 20 mg Q15M PRN IV PUSH sbp > 160 04/26/17 15:30 Hydralazine HCl 10 mg 10 mg Q30M PRN IV PUSH sbp > 160 04/26/17 15:30 Fentanyl Citrate 250 ml @ 0 mls/hr TITRATE IV 04/26/17 21:45 05/04/17 05:49 Propofol 100 ml @ 0 mls/hr TITRATE IV 04/26/17 22:00 05/03/17 23:20 Levetriacetam/ Sodium Chloride (Keppra Inj/NS Inj) 105 ml @ 400 mls/hr Q12H IV 04/27/17 21:00 05/04/17 09:38 Bisacodyl (Dulcolax Supp) 10 mg DAILY PRN RECTAL CONSTIPATION 04/27/17 10:30 05/01/17 08:29 Docusate Sodium (Colace) 100 mg BID PO 04/27/17 21:00 05/03/17 10:05 Calcium Gluconate 1 gm 1 gm UNSCH PRN IV SEE LABEL COMMENTS 04/27/17 10:30 04/30/17 19:04 Potassium Chloride 100 ml @ 50 mls/hr UNSCH PRN IV POTASSIUM LESS THAN 4 04/27/17 10:30 Magnesium Sulfate/ Sodium Chloride (Magnesium Sulfate Inj/NS Inj) 108 ml @ 108 mls/hr UNSCH PRN IV MAGNESIUM LESS THAN 2 04/27/17 10:30 05/01/17 17:56 Morphine Sulfate (Morphine Inj) 2 mg Q2H PRN IV PUSH PAIN SCALE 1 TO 6 04/27/17 10:30 Morphine Sulfate (Morphine Inj) 4 mg Q2H PRN IV PUSH PAIN SCALE 7 TO 10 04/27/17 10:30 05/02/17 05:29 Chlorhexidine Gluconate (Peridex 0.12% Liq) 15 ml BID@08,20 MT 04/27/17 20:00 05/04/17 09:39 Fentanyl Citrate 100 mcg 100 mcg Q1H PRN IV PUSH SEE LABEL COMMENTS 04/28/17 02:00 05/02/17 05:29 Midazolam HCl (Versed Inj) 100 ml @ 0 mls/hr TITRATE IV 04/28/17 07:00 05/03/17 02:37 Artificial Tears (Lacrilube Opht Oint) APPLY UNDER BOTH EYELIDS BID EACH EYE 04/28/17 21:00 05/04/17 09:39 Lorazepam 1 mg 1 mg Q1H PRN IV SEIZURES 04/28/17 11:15 Miscellaneous Information ml @ 0 mls/hr UNSCH IV 04/28/17 11:15 Sodium Chloride (NS Flush) 2 ml UNSCH PRN IV FLUSH SEE LABEL COMMENTS 04/28/17 11:15 05/02/17 08:14 Sodium Chloride (NS Flush) 2 ml UNSCH PRN IV FLUSH IV FLUSH 04/28/17 11:15 Artificial Tears 1 applic 1 applic Q4H PRN EACH EYE SEE LABEL COMMENTS 04/28/17 11:15 05/01/17 19:49 Potassium Phosphate/Sodium Chloride (Potassium Phosphate Inj/NS 250 ml Inj) 260 ml @ 43.333 mls/ hr UNSCH PRN IV ELECTROLYTE REPLACEMENT 04/30/17 09:00 Metoclopramide HCl 10 mg 10 mg Q8H IV PUSH 05/01/17 08:00 05/04/17 09:39 Phenylephrine HCl 160 mg/Sodium Chloride 500 ml @ 0 mls/hr TITRATE IV 05/01/17 15:00 05/04/17 02:41 Norepinephrine Bitartrate 16 mg/ Sodium Chloride 250 ml @ 0 mls/hr TITRATE IV 05/01/17 21:45 05/04/17 02:41 Sodium Chloride 500 ml @ 5 mls/hr Q24H IV 05/02/17 04:54 05/02/17 21:41 Dextrose/Sodium Chloride (D5W-NS 1000 ml Inj) 1,000 ml @ 75 mls/hr [id number] IV 05/02/17 05:45 05/04/17 02:47 Acetaminophen (Ofirmev Inj) 1,000 mg Q6H PRN IV temp > 37 05/02/17 09:45 Aspirin 325 mg 325 mg DAILY PO 05/03/17 09:00 05/04/17 09:38 Sodium Chloride 1,000 ml @ 75 mls/hr [id number] IV 05/02/17 17:15 05/04/17 09:40 Piperacillin Sod/ Tazobactam Sod 100 ml @ 200 mls/hr Q6H IV 05/02/17 18:00 05/04/17 05:49 Pharmacy Profile Note 0 ml @ 0 mls/hr UNSCH OTHER 05/03/17 08:00 Vasopressin/ Dextrose (Pitressin Inj/ D5W 100 ml Inj) 100 ml @ 4.5 mls/hr [id number] IV 05/03/17 08:00 05/03/17 23:51 Hydrocortisone Sodium Succinate 50 mg 50 mg Q6HR IV PUSH 05/03/17 12:00 05/04/17 05:49 Vancomycin HCl/ Sodium Chloride (Vancomycin Inj/ NS 250 ml Inj) 262.5 ml @ 250 mls/hr Q24H IV 05/04/17 11:00 Miscellaneous Information SPECIFIC LAB TO BE DRAWN:VANCOMYCIN TROUGH DATE TO... ONCE ONCE .XX 05/06/17 10:45 05/06/17 10:46 (Sakina Israel) Medical Decision Making MDM Remarks 42 year old female with large right hemispheric CVA with mass effect and midline shift, s/p right decompressive craniectomy with placement of ICP monitor 04/27/17 s/p hypothermic therapy (Sakina Israel) Plan Plan Remarks ICPs remains stable, bolt monitor removed cont sedation weaning cont critical care management f/u neuro examination (Sakina Israel) Attending Statement The exam, history, and the medical decision-making described in the above note were completed with the assistance of the mid-level provider. I reviewed and agree with the findings presented. I attest that I had a [id number] encounter with the patient on the same day, and personally performed and documented my assessment and findings in the medical record. (Garry Nathan MD) Sakina Israel May 04, 2017 11:09 Garry Nathan MD May 08, 2017 19:18
--- NOTE | 2017-05-04 11:38 | HHI.PR ---
Review/Management Diagnosis right MCA stroke, s/p iv tpa and thrombectomy of right M1 thrombus. Plan continue asa, Diagnosis/Plan: Subjective Subjective Comments No acute events reported Active Medications Current Medications Medications (Trade) Dose Ordered Sig/Elida Route Start Time Stop Time Status Last Admin Magnesium Oxide 800 mg 800 mg UNSCH PRN PO 04/26/17 14:15 Magnesium Sulfate 4 gm/Sodium Chloride 100 ml @ 50 mls/hr UNSCH PRN IV 04/26/17 14:15 Magnesium Sulfate 2 gm/Sodium Chloride 100 ml @ 50 mls/hr UNSCH PRN IV 04/26/17 14:15 Potassium Chloride 100 ml @ 50 mls/hr Q2H PRN IV 04/26/17 14:15 Potassium Chloride 100 ml @ 50 mls/hr Q2H PRN IV 04/26/17 14:15 04/27/17 13:31 Potassium Chloride 100 ml @ 50 mls/hr Q2H PRN IV 04/26/17 14:15 05/03/17 05:44 (KCl 40 Meq Premix Inj) 100 ml @ 25 mls/hr UNSCH PRN IV 04/26/17 14:15 05/03/17 04:56 (K-Phos) 2,000 mg Q4H PRN PO 04/26/17 14:15 04/28/17 05:25 Potassium Phosphate 2000 mg 2,000 mg UNSCH PRN PO/TUBE 04/26/17 14:15 (Sodium Phosphate Inj/NS 250 ml Inj) 250 ml @ 42 mls/hr UNSCH PRN IV 04/26/17 14:15 04/29/17 18:52 (D50w (Vial) Inj) 25 ml UNSCH PRN IV PUSH 04/26/17 14:15 05/03/17 06:49 (Protonix Inj) 40 mg DAILY IV 04/27/17 09:00 05/04/17 09:39 (Zofran Inj) 4 mg Q6H PRN IV 04/26/17 14:15 Miscellaneous Information 1 Q361D XX 04/26/17 14:15 (Chlorhexidine 2% Cloth) Taper DAILY@04 TOP 04/27/17 04:00 04/23/18 03:59 04/30/17 04:00 (Chlorhexidine 2% Cloth) 3 pack UNSCH PRN TOP 04/26/17 14:15 Senna/Docusate Sodium 1 tab 1 tab BID PO 04/26/17 21:00 05/04/17 09:39 (Cardene Inj/NS 250 ml Inj) 260 ml @ 0 mls/hr TITRATE IV 04/26/17 15:30 (Trandate Inj) 20 mg Q15M PRN IV PUSH 04/26/17 15:30 Hydralazine HCl 10 mg 10 mg Q30M PRN IV PUSH 04/26/17 15:30 Fentanyl Citrate 250 ml @ 0 mls/hr TITRATE IV 04/26/17 21:45 05/04/17 05:49 Propofol 100 ml @ 0 mls/hr TITRATE IV 04/26/17 22:00 05/03/17 23:20 (Keppra Inj/NS Inj) 105 ml @ 400 mls/hr Q12H IV 04/27/17 21:00 05/04/17 09:38 (Dulcolax Supp) 10 mg DAILY PRN RECTAL 04/27/17 10:30 05/01/17 08:29 (Colace) 100 mg BID PO 04/27/17 21:00 05/03/17 10:05 Calcium Gluconate 1 gm 1 gm UNSCH PRN IV 04/27/17 10:30 04/30/17 19:04 Potassium Chloride 100 ml @ 50 mls/hr UNSCH PRN IV 04/27/17 10:30 (Magnesium Sulfate Inj/NS Inj) 108 ml @ 108 mls/hr UNSCH PRN IV 04/27/17 10:30 05/01/17 17:56 (Morphine Inj) 2 mg Q2H PRN IV PUSH 04/27/17 10:30 (Morphine Inj) 4 mg Q2H PRN IV PUSH 04/27/17 10:30 05/02/17 05:29 (Peridex 0.12% Liq) 15 ml BID@08,20 MT 04/27/17 20:00 05/04/17 09:39 Fentanyl Citrate 100 mcg 100 mcg Q1H PRN IV PUSH 04/28/17 02:00 05/02/17 05:29 (Versed Inj) 100 ml @ 0 mls/hr TITRATE IV 04/28/17 07:00 05/03/17 02:37 (Lacrilube Opht Oint) APPLY UNDER BOTH EYELIDS BID EACH EYE 04/28/17 21:00 05/04/17 09:39 Lorazepam 1 mg 1 mg Q1H PRN IV 04/28/17 11:15 Miscellaneous Information ml @ 0 mls/hr UNSCH IV 04/28/17 11:15 (NS Flush) 2 ml UNSCH PRN IV FLUSH 04/28/17 11:15 05/02/17 08:14 (NS Flush) 2 ml UNSCH PRN IV FLUSH 04/28/17 11:15 Artificial Tears 1 applic 1 applic Q4H PRN EACH EYE 04/28/17 11:15 05/01/17 19:49 (Potassium Phosphate Inj/NS 250 ml Inj) 260 ml @ 43.333 mls/ hr UNSCH PRN IV 04/30/17 09:00 Metoclopramide HCl 10 mg 10 mg Q8H IV PUSH 05/01/17 08:00 05/04/17 09:39 Phenylephrine HCl 160 mg/Sodium Chloride 500 ml @ 0 mls/hr TITRATE IV 05/01/17 15:00 05/04/17 02:41 Norepinephrine Bitartrate 16 mg/ Sodium Chloride 250 ml @ 0 mls/hr TITRATE IV 05/01/17 21:45 05/04/17 02:41 Sodium Chloride 500 ml @ 5 mls/hr Q24H IV 05/02/17 04:54 05/02/17 21:41 (D5W-NS 1000 ml Inj) 1,000 ml @ 75 mls/hr [id number] IV 05/02/17 05:45 05/04/17 02:47 (Ofirmev Inj) 1,000 mg Q6H PRN IV 05/02/17 09:45 Aspirin 325 mg 325 mg DAILY PO 05/03/17 09:00 05/04/17 09:38 Sodium Chloride 1,000 ml @ 75 mls/hr [id number] IV 05/02/17 17:15 05/04/17 09:40 Piperacillin Sod/ Tazobactam Sod 100 ml @ 200 mls/hr Q6H IV 05/02/17 18:00 05/04/17 05:49 Pharmacy Profile Note 0 ml @ 0 mls/hr UNSCH OTHER 05/03/17 08:00 (Pitressin Inj/ D5W 100 ml Inj) 100 ml @ 4.5 mls/hr [id number] IV 05/03/17 08:00 05/03/17 23:51 Hydrocortisone Sodium Succinate 50 mg 50 mg Q6HR IV PUSH 05/03/17 12:00 05/04/17 05:49 (Vancomycin Inj/ NS 250 ml Inj) 262.5 ml @ 250 mls/hr Q24H IV 05/04/17 11:00 Miscellaneous Information SPECIFIC LAB TO BE DRAWN:VANCOMYCIN TROUGH DATE TO... ONCE ONCE .XX 05/06/17 10:45 05/06/17 10:46 Allergies Allergies Coded Allergies Shellfish (Verified Allergy, Unknown, 04/26/17) Exam I&O / VS 05/03/17 05/03/17 05/04/17 15:00 23:00 07:00 Intake Total 2823 ml 2124 ml 1580 ml Output Total 2000 ml 650 ml 400 ml Balance 823 ml 1474 ml 1180 ml IV Total 2823 ml 2124 ml 1580 ml Output Urine Total 1300 ml 550 ml 300 ml Stool Total 600 ml Gastric Drainage Total 100 ml 100 ml 100 ml Vital Signs Date Time Temp Pulse Resp B/P Pulse Ox O2 Delivery O2 Flow Rate FiO2 05/04/17 10:30 97 60 05/04/17 10:00 71 05/04/17 08:00 97.9 71 22 149/81 96 05/04/17 08:00 71 05/04/17 08:00 60 05/04/17 07:44 96 60 05/04/17 06:00 71 05/04/17 04:45 99 60 05/04/17 04:00 98.5 80 20 129/67 94 05/04/17 04:00 60 05/04/17 04:00 67 05/04/17 02:00 81 05/04/17 00:14 99 60 05/04/17 00:00 73 05/04/17 00:00 96.2 74 18 129/72 99 05/04/17 00:00 60 05/03/17 22:00 73 05/03/17 20:13 98 60 05/03/17 20:00 83 05/03/17 20:00 97.3 84 24 140/87 99 05/03/17 20:00 60 05/03/17 18:00 90 05/03/17 17:27 98 60 05/03/17 16:00 95 05/03/17 16:00 60 05/03/17 16:00 97.9 95 24 154/81 96 05/03/17 14:00 96 05/03/17 12:04 97 60 05/03/17 12:00 96.3 93 24 139/68 98 05/03/17 12:00 93 05/03/17 12:00 60 Exam Comments sedated pupils 4 mm right nonreactive, 2 mm left and reactive no spontaneous limb movement and no withdrawal Objective Micro and Labs Laboratory Tests Test 05/03/17 05/03/17 05/03/17 05/03/17 13:05 16:15 22:25 23:15 Lactic Acid Level 2.0 Sodium Level 152 154 Potassium Level 5.5 5.3 Chloride Level 125 126 Carbon Dioxide Level 20.0 19.3 Anion Gap 7 9 Blood Urea Nitrogen 6 9 Creatinine 1.38 1.36 Estimat Glomerular Filtration 42 42 Rate Random Glucose 104 140 Calcium Level 7.8 7.3 Phosphorus Level 5.2 Magnesium Level 1.8 Blood Gas Puncture Site ART LINE Blood Gas Patient Temperature 96.4 Blood Gas HCO3 16 Blood Gas Base Excess -8.5 Blood Gas Oxygen Saturation 95 Arterial Blood pH 7.36 Arterial Blood Partial 29 Pressure CO2 Arterial Blood Partial 91 Pressure O2 Arterial Blood Oxygen Content 11.9 Arterial Blood 0.9 Carboxyhemoglobin Arterial Blood Methemoglobin 1.4 Blood Gas Hemoglobin 8.8 Oxygen Delivery Device VENTILATOR Blood Gas Ventilator Setting PRVC/AC Blood Gas Inspired Oxygen 60 Protein Corrected Calcium 8.7 Total Protein 4.6 Test 05/04/17 05/04/17 05/04/17 03:40 05:45 06:12 White Blood Count 15.6 Red Blood Count 2.85 Hemoglobin 8.6 Hematocrit 26.2 Mean Corpuscular Volume 91.9 Mean Corpuscular Hemoglobin 30.0 Mean Corpuscular Hemoglobin 32.7 Concent Red Cell Distribution Width 15.7 Platelet Count 69 Mean Platelet Volume 9.8 Sodium Level 156 Potassium Level 5.1 Chloride Level 125 Carbon Dioxide Level 20.2 Anion Gap 11 Blood Urea Nitrogen 11 Creatinine 1.45 Estimat Glomerular Filtration 39 Rate Random Glucose 133 Serum Osmolality 318 Calcium Level 7.9 Phosphorus Level 4.9 Magnesium Level 2.0 Random Vancomycin Level 9.0 Blood Gas Puncture Site ART LINE Blood Gas Patient Temperature 98.6 Blood Gas HCO3 17 Blood Gas Base Excess -8.3 Blood Gas Oxygen Saturation 94 Arterial Blood pH 7.32 Arterial Blood Partial 34 Pressure CO2 Arterial Blood Partial 85 Pressure O2 Arterial Blood Oxygen Content 10.9 Arterial Blood 0.8 Carboxyhemoglobin Arterial Blood Methemoglobin 1.1 Blood Gas Hemoglobin 8.2 Oxygen Delivery Device VENTILATOR Blood Gas Ventilator Setting PRVC/AC Blood Gas Inspired Oxygen 60 Urine Color YELLOW Urine Turbidity CLOUDY Urine pH 5.5 Urine Specific [place] 1.029 Urine Protein 100 Urine Glucose (UA) NEG Urine Ketones NEG Urine Occult Blood SMALL Urine Nitrite NEG Urine Bilirubin NEG Urine Urobilinogen LESS THAN 2.0 Urine Leukocyte Esterase LARGE Urine RBC 6 Urine WBC 80 Urine WBC Clumps OCC Urine Squamous Epithelial 1 Cells Urine Amorphous Sediment FEW Urine Mucus FEW Urine Yeast (Budding) FEW Microscopic Urinalysis Comment Date/Time Procedure Status Source Growth 05/02/17 13:30 Aerobic Blood Culture - Preliminary Resulted Blood Peripheral NO GROWTH IN 2 DAYS 05/02/17 13:30 Anaerobic Blood Culture - Preliminary Resulted Blood Peripheral NO GROWTH IN 2 DAYS 05/01/17 06:58 Gram Stain - Final Complete Sputum Endotracheal 05/01/17 06:58 Sputum Culture - Final Complete Escherichia Coli Santana Gomez PhD May 04, 2017 11:38
[2017-05-04 15:08] LABS: BLOOD GAS BASE EXCESS -8.2 mmol/L (-2-2); BLOOD GAS CARBOXYHEMOGLOBIN 0.6 % (0-4); BLOOD GAS HCO3 17 mmol/L (22-26); BLOOD GAS METHEMOGLOBIN 1.1 % (0-2); BLOOD GAS O2 HGB SATURATION 93 % (90-100); BLOOD GAS OXYGEN CONTENT 16.8 Vol % (12.0-20.0); BLOOD GAS PCO2 36 mmHg (38-42); BLOOD GAS PO2 84 mmHg (61-120); BLOOD GAS TOTAL HGB 12.8 G/DL (12.0-16.0); TEMP CORR TO 98.6
[2017-05-04 15:09] LABS: CRITICAL VALUE YES; DRAW SITE ART LINE; FIO2 60 %; NUMBER OF ARTERIAL PUNCTURES 0; OXYGEN DEVICE VENTILATOR; STAT NO; ULNAR PULSE PRESENT; VENT SETTINGS PRVC/AC
[2017-05-04] MEDS ORDERED: FUROSEMIDE 40 MG/4 ML VIAL IV PUSH ONE (16:00)
[2017-05-04] MEDS: DEXTROSE 10%-NS 1000 ML IV SCH ×2 (16:38)
--- NOTE | 2017-05-04 18:57 | HHI.CCPN ---
Subjective Remarks/Hospital Course This is a 42yF with unremarkable past medical history who presents to the [facility] emergency department with new-onset left-sided weakness and slurred speech. She is an employee of [employer] who had a witnessed onset of her symptoms at 12:45pm. In the [facility] ED she was immediately taken for non-contrasted head CT which was negative for acute hemorrhage. She was given iv tpa which was instituted 36 minutes after arrival, per my conversation with the educational technology coordinator. She was then emergently transferred to [facility]. CT angiography demonstrated acute right m1 cut-off. She was taken by [facility] and arrived directly to the IR suite, where I met and evaluated the patient. Due to the acute nature of her illness and her dysarthria, a complete history is not obtainable. She does endorse right-sided headache, although denied any chest pain, shortness of breath. 04/27: Back from OR after right craniectomy for decompression s/p left MCA CVA. Heavily sedated. Some new history from a co-worker indicates that patient started taking oral contraceptive 2 months ago. 04/28: Continued problems with cerebral edema as expected. Push osmolality a little higher and restrict fluid. Tolerate pH mildly acidotic to avoid cerebral vascular constriction. 04/29: Osmolality in good range. ICP controlled. Hypothermia to 34 degrees. Raise to 35 slowly as long as ICP is acceptable. Unable to start tube feeds yet as gut motility will be poor at cooler temperature. 04/30: ICP control good. Osmolality acceptable. Temp to 35 degrees. 05/01: Raise temp to 36 degrees and hold. CXR with light basilar infiltrates, no leukocytosis. Heavily sedated for brain protection/ICP control. Persistent blood sugars 60s range - will start D5/NS at 30/hr. 05/02: vasopressor requirement uptrending. wbc uptrending as well. repeat head ct with persistent edema, although ICPs slightly improved. 05/03: slight improvement in vasopressors and lactate with ivf resuscitation. however, still persists on high doses of multiple vasopressors. ICPs stable. off versed. sputum growing chowdhury-sensitive e-coli. I performed critical care bedside echo this morning which demonstrated preserved biventricular function, no significant valvular lesions, ivc with 20% variability and measures at 1.6cm. by echo appears clinically euvolemic. 05/04: vasopressors significantly improved throughout the night. but remains on two vasopressors. this morning, cvp climbing. weaning off sedation. bolt removed. icp's controlled. still poor neurologic exam, despite weaning off sedation. (delayed note entry. seen and evaluated at 06:20am). Objective Vital Signs Date Time Temp Pulse Resp B/P Pulse Ox O2 Delivery O2 Flow Rate FiO2 05/04/17 17:07 97 50 05/04/17 16:00 66 05/04/17 12:00 98.2 22 140/77 Intake and Output 05/03/17 05/03/17 05/03/17 07:59 15:59 23:59 Intake Total 2297 ml 2823 ml 2124 ml Output Total 1700 ml 2000 ml 650 ml Balance 597 ml 823 ml 1474 ml Result Diagram: 05/04/17 0340 05/04/17 0340 Other Results Laboratory Tests Test 05/03/17 05/04/17 05/04/17 22:25 05:45 14:55 Blood Gas Puncture Site ART LINE ART LINE ART LINE Blood Gas Patient Temperature 96.4 98.6 98.6 Blood Gas HCO3 16 mmol/L 17 mmol/L 17 mmol/L (22-26) (22-26) (22-26) Blood Gas Base Excess -8.5 mmol/L -8.3 mmol/L -8.2 mmol/L (-2-2) (-2-2) (-2-2) Blood Gas Oxygen Saturation 95 % (90-100) 94 % (90-100) 93 % (90-100) Arterial Blood pH 7.36 7.32 7.29 (7.380-7.420) (7.380-7.420) (7.380-7.420) Arterial Blood Partial 29 mmHg (38-42) 34 mmHg (38-42) 36 mmHg (38-42) Pressure CO2 Arterial Blood Partial 91 mmHg 85 mmHg 84 mmHg Pressure O2 (61-120) (61-120) (61-120) Arterial Blood Oxygen Content 11.9 Vol % 10.9 Vol % 16.8 Vol % (12.0-20.0) (12.0-20.0) (12.0-20.0) Arterial Blood 0.9 % (0-4) 0.8 % (0-4) 0.6 % (0-4) Carboxyhemoglobin Arterial Blood Methemoglobin 1.4 % (0-2) 1.1 % (0-2) 1.1 % (0-2) Blood Gas Hemoglobin 8.8 G/DL 8.2 G/DL 12.8 G/DL (12.0-16.0) (12.0-16.0) (12.0-16.0) Oxygen Delivery Device VENTILATOR VENTILATOR VENTILATOR Blood Gas Ventilator Setting PRVC/AC PRVC/AC PRVC/AC Blood Gas Inspired Oxygen 60 % 60 % 60 % Imaging Last Impressions Neck CTA 04/26/171315 Signed Impressions: Service Date/Time: Wednesday, April 26, 2017 13:39 - CONCLUSION: 1. Standard 3 vessel arch anatomy. 2. Widely patent carotid arteries. 3. Dominant left vertebral artery. Vertebral arteries are patent bilaterally. 4. 5 mm right thyroid nodule. This can be further evaluated with ultrasound on an outpatient basis. Cyrus Orozco MD Head CTA 04/26/171315 Signed Impressions: Service Date/Time: Wednesday, April 26, 2017 13:39 - CONCLUSION: 1. Occlusion of the right M1 segment. Grossly intact mendoza-white matter differentiation with gross ASPECT score of 10/10. 2. Incidental finding of 5 mm right thyroid nodule. This can be further evaluated with ultrasound on an outpatient basis. Cyrus Orozco MD Head CT 04/26/17 Signed Impressions: Service Date/Time: Wednesday, April 26, 2017 12:51 - CONCLUSION: Normal examination for a patient of this age. Jerry Torres MD Chest X-Ray 04/26/17 Signed Impressions: Service Date/Time: Wednesday, April 26, 2017 14:01 - CONCLUSION: No acute cardiopulmonary disease radiographically. Cyrus Orozco MD Objective Remarks gen: middle-aged female, lying in bed, unresponsive. heent: mild facial edema resolving. neck: trachea midline. orally intubated. chest: few rhonchi, good air movement equal chest rise. PCO2 control good. cv: normal rate, regular rhythm. sinus by tele. no JVD. no m,r abd: soft, nontender, nondistended. no guarding. quiet. extr: no peripheral edema. distal pulses palpable, well perfused. neuro: RASS -5;. Left pupil 2 mm, reacts. Right pupil 3 mm, reacts. Otherwise unresponsive. weak cough. A/P Assessment and Plan Assessment: 42yF with acute right M1 MCA CVA now s/p systemic TPA and attempted interventional mechanical thrombectomy. Her course is complicated by malignant cerebral edema requiring decompressive craniectomy and therapeutic hypothermia. She remains with significant cerebral edema, very critically ill, and with high vasopressor requirements. Vasopressors slightly improved, but neuro exam remains poor despite weaning sedation. we will repeat EEG to confirm she is not in subclinical status. She is also becoming more volume overloaded, likely secondary to her acute kidney injury and large volume resuscitation. we may be forced to pursue diuresis despite vasopressors at this point. She is very critically ill at this time. Plan by Systems: Neuro: Acute right M1 MCA CVA s/p systemic TPA and endovascular thrombectomy Dysarthria Left-sided hemiparesis Left-sided facial droop Malignant Cerebral Edema s/p Decompressive Craniectomy Elevated ICP -- q1h neuro checks -- wean sedation to obtain neuro exam. -- continue propofol, fentanyl -- repeat EEG today. -- repeat head CT 05/02, 05/04: stable edema, slightly enlarged left lateral ventricle, evolving right hemispheric cva -- 3% nacl currently on hold. goal Na 145-155. -- serial bmps -- SBP goal 110 - 160. -- keppra for seizure ppx Respiratory: Acute hypoxic and Hypercarbic respiratory failure -- no SBT today given persistent cerebral edema -- wean fio2 for goal spo2 > 90% -- etco2 monitoring with q12h abg. goal pco2 35 - 40. -- vent bundle -- elevated HOB Cardiovascular Septic Shock- resolving. Adrenal Insufficiency -- goal sbp 110 - 160 -- levophed, phenylephrine titrated to obtain goal -- vasopressin. -- d/c mivf given rising filling pressures. -- pulse contour analysis and cvp monitoring. Renal: Acute Kidney Injury -- likely multifactorial at this point including ATN. currently starting to become hypervolemic. -- continue ribera with strict i/o's -- trend Cr on daily bmp -- may be forced to start diuresis despite FADUMO. FEN/GI Acute protein calorie malnutrition- mild Hypernatremia Lactic Acidosis- resolving. Anion-gap metabolic acidosis -- hold TF given high vasopressor requirements with elevated lactate -- ICU electrolyte protocol -- daily bmp Heme/ID: Anemia secondary to acute blood loss Leukocytosis E. Coli Pneumonia, likely secondary to aspiration at time of stroke -- Zosyn 4.5 gm iv q6h -- keep vancomycin 1 more day. if cultures remain negative, will d/c. -- sputum culture 05/01: e.coli, chowdhury sensitive -- urine, blood cultures 05/02 NGTD. -- daily cbc Endo: Hypoglycemia Adrenal Insufficiency -- d/c d5NS and start d10NS for dextrose source to minimize fluids. -- frequent glucose checks. -- hydrocortisone 50mg iv q6h. Prophy: -- SCDs -- pepcid iv for gi prophylaxis Lines: -- LIJ TLC -- left femoral art line Overall impression: Large distribution right MCA CVA with shift required decompressive craniectomy 04/27 in an attempt to rescue the dominant hemisphere. She is critically ill with an unstable neurological process and considerable cerebral edema. This patient remains critically ill with one or more organ systems which are or may become a threat to life. I have spent in excess of 47 minutes discontinuously in the care and management of this patient. This time is exclusive of procedures, and includes, but is not limited to, evaluation of the patient, review of the medical record, discussions with family, consultants, nursing staff, or respiratory therapy, and documentation in the medical record. Remi Freeman MD May 04, 2017 18:57
--- NOTE | 2017-05-04 20:24 | MG ---
cc: MIRIAM POP M.D. Lab No: Date: 05/04/2017 Age: Sex: F Race: TEST NUMBER [id number] Christina. TECHNIQUE This is 17 channel EEG. DESCRIPTION The background activity reveals a severely attenuated rhythm with very low amplitude roughly 2 microvolts. There are periodic bilateral delta waves of higher amplitude with some sharp transients over the right hemisphere very rarely. Almost a burst suppression type pattern. Photic stimulation was done with no significant driving response. INTERPRETATION Severely abnormal EEG on the basis of severely attenuated amplitude as well as a burst suppression type pattern. In addition there is occasional sharp activity over the right hemisphere. This is indicative of a significant severe encephalopathic state, as well as possible epileptogenic focus over the right hemisphere. MD DAKOTA Franco/KK /6:23 PM /8:11 PM
[2017-05-05] VITALS (22 sets, daily range): BP systolic 97–136; BP diastolic 52–79; PULSE 54–67; RESP 22; TEMP 97.2–98.2; O2SAT 91–100
[2017-05-05] MEDS: INSULIN NovoLIN REGULAR SUPPLEMENTAL SCALE SQ SCH ×5 (03:00→21:00)
[2017-05-05] MEDS: CHLORHEXIDINE GLUCONATE 2 % 1 PACK (2 CLOTHS) TOP SCH (04:00)
[2017-05-05 04:34] LABS: BLOOD GAS BASE EXCESS -6.6 mmol/L (-2-2); BLOOD GAS HCO3 18 mmol/L (22-26); BLOOD GAS METHEMOGLOBIN 1.3 % (0-2); BLOOD GAS O2 HGB SATURATION 94 % (90-100); BLOOD GAS OXYGEN CONTENT 10.1 Vol % (12.0-20.0); BLOOD GAS PCO2 36 mmHg (38-42); BLOOD GAS PO2 97 mmHg (61-120); BLOOD GAS TOTAL HGB 7.5 G/DL (12.0-16.0); CRITICAL VALUE NO; OXYGEN DEVICE VENTILATOR; TEMP CORR TO 98.6
[2017-05-05 04:34] LABS: AUTOMATED NEUTROPHIL # 7.8 TH/MM3 (1.8-7.7); BASOPHIL % 0.4 % (0.0-2.0); EOSINOPHIL % 0.1 % (0.0-4.0); HEMATOCRIT 22.9 % (35.0-46.0); HEMO FLAGS AUTO DIFF; LYMPH % 13.8 % (9.0-44.0); LYMPHOCYTE # 1.4 TH/MM3 (1.0-4.8); MEAN CORPUSCULAR HEMOGLOBIN 30.5 PG (27.0-34.0); MEAN CORPUSCULAR HGB CONC 33.5 % (32.0-36.0); MONO % 9.9 % (0.0-8.0); NEUT % 75.8 % (16.0-70.0); PLATELET COUNT 61 TH/MM3 (150-450); RED BLOOD COUNT 2.52 MIL/MM3 (4.00-5.30); RED CELL DISTRIBUTION WIDTH 15.6 % (11.6-17.2); WHITE BLOOD COUNT 10.2 TH/MM3 (4.0-11.0)
[2017-05-05 04:35] LABS: DRAW SITE ART LINE; FIO2 100 %; STAT NO; VENT SETTINGS PRVC/AC
[2017-05-05] MEDS ORDERED: FUROSEMIDE 100 MG/10 ML VIAL IV PUSH ONE (04:45)
--- NOTE | 2017-05-05 04:48 | RADRPT ---
EXAM DATE/TIME: 05/05/2017 03:59 [place] COMPARISON: CHEST SINGLE AP, May 03, 2017, 4:35. INDICATIONS : Short of breath. MEDICAL HISTORY : None. SURGICAL HISTORY : None. ENCOUNTER: Subsequent ACUITY: 1 week PAIN SCORE: Non-responsive. LOCATION: Bilateral chest FINDINGS: A single view of the chest demonstrates the endotracheal tube, nasogastric tube and left IJ central v enous catheter in good position. There moderate size bilateral pleural effusion with bibasilar infilt rates, stable. Osseous structures are intact. CONCLUSION: Prominent bibasilar infiltrates. Tubes and catheters are all in good position Bertin White MD on May 05, 2017 at 4:46 Board Certified Radiologist. This report was verified electronically.
[2017-05-05] MEDS: 3% SALINE INJ 500 ML IV SCH (04:54)
[2017-05-05 05:02] LABS: BANDS 8 % (0-6); BASOPHILS 1 % (0-2); BICARBONATE 20.7 MEQ/L (21.0-32.0); CORRECTED NUCLEATED RBC 5 /100 WBC (0-0); METAMYELOCYTES 2 % (0-1); MYELOCYTES 1 % (0-0); NEUTROPHIL # MANUAL DIFF 7.9 TH/MM3 (1.8-7.7); PLATELET ESTIMATE SMEAR LOW (NORMAL); PLATELET MORPHOLOGY NORMAL (NORMAL); POLYS (SEG NEUTROPHILS) 66 % (16-70); POTASSIUM 3.6 MEQ/L (3.5-5.1); SCAN/DIFF FINAL DIFF MANUAL; WBC DIFF SAMPLE 100
[2017-05-05 05:04] LABS: ACANTHOCYTES OCC (NORMAL); DOHLE BODIES PRESENT (NONE SEEN); KERATOCYTES OCC (NORMAL); OVALOCYTES 1+ (NORMAL)
[2017-05-05] MEDS: PIPERACIL-TAZO 4.5 GM PREMIX 100 ML IV SCH (05:11)
[2017-05-05] MEDS: HYDROCORTISONE SOD SUCCINATE 100 MG VIAL IV PUSH SCH ×4 (05:12→23:45)
[2017-05-05] MEDS: CHLORHEXIDINE 0.12% (ORAL KIT) 15 ML CUP MT SCH ×2 (08:00→20:00)
[2017-05-05] MEDS: ARTIFICIAL TEARS OPTH OINT 3.5 APPLIC/3.5 GM TUBO EACH EYE SCH ×2 (08:19→21:00)
[2017-05-05] MEDS: ASPIRIN 325 MG TAB PO SCH (08:19)
[2017-05-05] MEDS: DOCUSATE SODIUM 50 MG/SENNA 8.6 MG TAB PO SCH ×2 (08:19→21:00)
[2017-05-05] MEDS: PANTOPRAZOLE SODIUM 40 MG VIAL IV SCH (08:19)
[2017-05-05] MEDS: levETIRAcetam INJ 500 MG in SODIUM CHLORIDE 0.9% INJ 100 ML IV SCH ×2 (08:19→22:17)
[2017-05-05] MEDS: DOCUSATE SODIUM 100 MG CAP PO SCH ×2 (08:20→22:17)
[2017-05-05] MEDS: METOCLOPRAMIDE HCL 10 MG/2 ML VIAL IV PUSH SCH ×3 (09:31→23:46)
[2017-05-05] MEDS ORDERED: PHARMACY ORDERED LAB ONE (10:45)
[2017-05-05 12:42] LABS: BICARBONATE 19.6 MEQ/L (21.0-32.0); MAGNESIUM 2.2 MG/DL (1.5-2.5); POTASSIUM 3.4 MEQ/L (3.5-5.1)
[2017-05-05] MEDS ORDERED: VANCOMYCIN INJ 1,250 MG in SODIUM CHLOR 0.9% 250 ML INJ 250 ML IV ONE (13:00)
--- NOTE | 2017-05-05 14:06 | HHI.NSPN ---
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 Her MRI showed midline shift and was taken for emergent right decompressive craniectomy 04/27/17 with placement of ICP monitor. 04/28: pt seen this am during rounds: ICPs became elevated last evening and early this morning in the mid 20's. pt started on Versed drip with bolus of 23%. On Mannitol and 3% NS. ICPs now 11-14. Critical care aware will be initiating code cool. Unstable for repeat CT Head this am. 04/29: intubated and well sedated, hypothermic therapy. ICPs improved and stable overnight. 04/30: ICPs in the high teens. On max sedation. Elevated serums os and sodium levels. Increasing vent rate to decrease pCO2. Started rewarming. 05/01: slowly being rewarmed. ICPs high teens but stable. remains well sedated 05/02: ICPs better today in the mid teens. Well sedated. Febrile. 05/03: ICPs 11-17 overnight, currently 12. Versed off, and off hypothermic tx. 05/04: stable ICPs overnight, no changes to neuro check 05/05: sedation off since 1529 yesterday. No eye opening, no spontaneous movements. (Sakina Israel) Labs, Micro, & Vital Signs Results Date Time Temp Pulse Resp B/P Pulse Ox O2 Delivery O2 Flow Rate FiO2 05/05/17 13:55 94 80 05/05/17 12:00 97.3 54 22 123/60 96 97/52 05/05/17 12:00 60 05/05/17 12:00 80 05/05/17 11:10 96 100 05/05/17 10:00 60 05/05/17 08:00 61 05/05/17 08:00 100 05/05/17 08:00 97.9 61 22 131/71 92 112/79 05/05/17 07:50 96 100 05/05/17 06:00 135/74 109/74 05/05/17 06:00 60 05/05/17 04:49 100 05/05/17 04:45 95 100 05/05/17 04:12 96 100 05/05/17 04:00 62 05/05/17 04:00 100 05/05/17 04:00 98.2 62 22 136/75 96 109/77 05/05/17 03:45 100 05/05/17 03:45 94 100 05/05/17 03:30 91 70 05/05/17 03:10 70 05/05/17 02:00 67 05/05/17 00:23 100 45 05/05/17 00:00 64 05/05/17 00:00 98.1 64 22 135/75 100 112/73 05/05/17 00:00 45 05/04/17 22:00 64 05/04/17 20:59 100 50 05/04/17 20:00 133/72 113/67 05/04/17 20:00 98.1 66 22 130/68 100 113/67 05/04/17 20:00 66 05/04/17 20:00 50 05/04/17 18:00 63 05/04/17 17:07 97 50 05/04/17 16:00 66 05/04/17 16:00 50 05/04/17 16:00 97.7 66 22 153/86 97 05/05/17 07:00 Intake Total 2591 ml Output Total 2450 ml Balance 141 ml Constitutional Vital Signs Date Time Temp Pulse Resp B/P Pulse Ox O2 Delivery O2 Flow Rate FiO2 05/05/17 13:55 94 80 05/05/17 12:00 97.3 54 22 123/60 96 97/52 05/05/17 12:00 60 05/05/17 12:00 80 05/05/17 11:10 96 100 05/05/17 10:00 60 05/05/17 08:00 61 05/05/17 08:00 100 05/05/17 08:00 97.9 61 22 131/71 92 112/79 05/05/17 07:50 96 100 05/05/17 06:00 135/74 109/74 05/05/17 06:00 60 05/05/17 04:49 100 05/05/17 04:45 95 100 6/8/17 04:12 96 100 05/05/17 04:00 62 05/05/17 04:00 100 05/05/17 04:00 98.2 62 22 136/75 96 109/77 05/05/17 03:45 100 05/05/17 03:45 94 100 05/05/17 03:30 91 70 05/05/17 03:10 70 05/05/17 02:00 67 05/05/17 00:23 100 45 05/05/17 00:00 64 05/05/17 00:00 98.1 64 22 135/75 100 112/73 05/05/17 00:00 45 05/04/17 22:00 64 05/04/17 20:59 100 50 05/04/17 20:00 133/72 113/67 05/04/17 20:00 98.1 66 22 130/68 100 113/67 05/04/17 20:00 66 05/04/17 20:00 50 05/04/17 18:00 63 05/04/17 17:07 97 50 05/04/17 16:00 66 05/04/17 16:00 50 05/04/17 16:00 97.7 66 22 153/86 97 05/05/17 07:00 Intake Total 2591 ml Output Total 2450 ml Balance 141 ml (Sakina Israel) Review of Systems/Exam Exam Ms. Toledo is intubated, off IV sedation. No eye opening. Right flap remains full, slightly softer to palpate today. Surgical wound healing well. clean and dry. Cranial Nerves: Left pupil 4, right pupil 6, b/l nonreactive. Conjugate gaze. Motor: No response, very well sedated Generalized edema to extremities Bilateral plantar response silent. (Sakina Israel) Medications Current Medications Current Medications Medications (Trade) Dose Ordered Sig/Elida Route PRN Reason Start Time Stop Time Status Last Admin Dose Admin Dextrose (D50w (Vial) Inj) 25 ml UNSCH PRN IV PUSH HYPOGLYCEMIA-SEE COMMENTS 04/26/17 14:15 05/03/17 06:49 Pantoprazole Sodium (Protonix Inj) 40 mg DAILY IV 04/27/17 09:00 05/05/17 08:19 Ondansetron HCl (Zofran Inj) 4 mg Q6H PRN IV NAUSEA OR VOMITING 04/26/17 14:15 Miscellaneous Information 1 Q361D XX 04/26/17 14:15 Chlorhexidine Gluconate (Chlorhexidine 2% Cloth) Taper DAILY@04 TOP 04/27/17 04:00 04/23/18 03:59 04/30/17 04:00 Chlorhexidine Gluconate (Chlorhexidine 2% Cloth) 3 pack UNSCH PRN TOP HYGIENIC CARE 04/26/17 14:15 Senna/Docusate Sodium (Avelina-Colace) 1 tab BID PO 04/26/17 21:00 05/05/17 08:19 Labetalol HCl (Trandate Inj) 20 mg Q15M PRN IV PUSH sbp > 160 04/26/17 15:30 Hydralazine HCl 10 mg 10 mg Q30M PRN IV PUSH sbp > 160 04/26/17 15:30 Fentanyl Citrate 250 ml @ 0 mls/hr TITRATE IV 04/26/17 21:45 05/04/17 05:49 Propofol 100 ml @ 0 mls/hr TITRATE IV 04/26/17 22:00 05/03/17 23:20 Levetriacetam/ Sodium Chloride (Keppra Inj/NS Inj) 105 ml @ 400 mls/hr Q12H IV 04/27/17 21:00 05/05/17 08:19 Bisacodyl (Dulcolax Supp) 10 mg DAILY PRN RECTAL CONSTIPATION 04/27/17 10:30 05/01/17 08:29 Docusate Sodium (Colace) 100 mg BID PO 04/27/17 21:00 05/04/17 21:03 Calcium Gluconate 1 gm 1 gm UNSCH PRN IV SEE LABEL COMMENTS 04/27/17 10:30 04/30/17 19:04 Potassium Chloride 100 ml @ 50 mls/hr UNSCH PRN IV POTASSIUM LESS THAN 4 04/27/17 10:30 Magnesium Sulfate/ Sodium Chloride (Magnesium Sulfate Inj/NS Inj) 108 ml @ 108 mls/hr UNSCH PRN IV MAGNESIUM LESS THAN 2 04/27/17 10:30 05/01/17 17:56 Morphine Sulfate (Morphine Inj) 2 mg Q2H PRN IV PUSH PAIN SCALE 1 TO 6 04/27/17 10:30 Morphine Sulfate (Morphine Inj) 4 mg Q2H PRN IV PUSH PAIN SCALE 7 TO 10 04/27/17 10:30 05/02/17 05:29 Chlorhexidine Gluconate (Peridex 0.12% Liq) 15 ml BID@08,20 MT 04/27/17 20:00 05/05/17 08:00 Fentanyl Citrate (fentaNYL INJ) 100 mcg Q1H PRN IV PUSH SEE LABEL COMMENTS 04/28/17 02:00 05/02/17 05:29 Artificial Tears (Lacrilube Opht Oint) APPLY UNDER BOTH EYELIDS BID EACH EYE 04/28/17 21:00 05/05/17 08:19 Lorazepam 1 mg 1 mg Q1H PRN IV SEIZURES 04/28/17 11:15 Miscellaneous Information ml @ 0 mls/hr UNSCH IV 04/28/17 11:15 Sodium Chloride (NS Flush) 2 ml UNSCH PRN IV FLUSH SEE LABEL COMMENTS 04/28/17 11:15 05/02/17 08:14 Sodium Chloride (NS Flush) 2 ml UNSCH PRN IV FLUSH IV FLUSH 04/28/17 11:15 Artificial Tears (Lacrilube Opht Oint) 1 applic Q4H PRN EACH EYE SEE LABEL COMMENTS 04/28/17 11:15 05/01/17 19:49 Metoclopramide HCl 10 mg 10 mg Q8H IV PUSH 05/01/17 08:00 05/05/17 09:31 Phenylephrine HCl 160 mg/Sodium Chloride 500 ml @ 0 mls/hr TITRATE IV 05/01/17 15:00 05/04/17 02:41 Sodium Chloride (Sodium Chloride 3% Inj) 500 ml @ 5 mls/hr Q24H IV 05/02/17 04:54 05/02/17 21:41 Acetaminophen (Ofirmev Inj) 1,000 mg Q6H PRN IV temp > 37 05/02/17 09:45 Aspirin 325 mg 325 mg DAILY PO 05/03/17 09:00 05/05/17 08:19 Piperacillin Sod/ Tazobactam Sod 100 ml @ 200 mls/hr Q6H IV 05/02/17 18:00 05/05/17 05:11 Pharmacy Profile Note (Vancomycin Consult Pharmacy) 0 ml @ 0 mls/hr UNSCH OTHER 05/03/17 08:00 Hydrocortisone Sodium Succinate 50 mg 50 mg Q6HR IV PUSH 05/03/17 12:00 05/05/17 11:26 Sodium Chloride 154 meq/Dextrose 1,000 ml @ 30 mls/hr Q24H IV 05/04/17 17:00 05/04/17 16:38 Vancomycin HCl/ Sodium Chloride (Vancomycin Inj/ NS 250 ml Inj) 262.5 ml @ 250 mls/hr ONCE ONCE IV 05/05/17 13:00 05/05/17 14:02 05/05/17 12:41 (Sakina Israel) Medical Decision Making MDM Remarks 42 year old female with large right hemispheric CVA with mass effect and midline shift, s/p right decompressive craniectomy with placement of ICP monitor 04/27/17, ICP monitor dc'ed 05/04/17 s/p hypothermic therapy IV sedation off 05/04/17 afternoon (Sakina Israel) Plan Plan Remarks cont neuro check follow up neurological examination cont critical care management dw fiance again in room (Sakina Israel) Attending Statement The exam, history, and the medical decision-making described in the above note were completed with the assistance of the mid-level provider. I reviewed and agree with the findings presented. I attest that I had a [id number] encounter with the patient on the same day, and personally performed and documented my assessment and findings in the medical record. (Garry Nathan MD) Sakina Israel May 05, 2017 14:06 Garry Nathan MD May 08, 2017 19:24
[2017-05-05 15:40] LABS: BLOOD GAS BASE EXCESS -5.2 mmol/L (-2-2); BLOOD GAS CARBOXYHEMOGLOBIN 0.9 % (0-4); BLOOD GAS HCO3 19 mmol/L (22-26); BLOOD GAS O2 HGB SATURATION 92 % (90-100); BLOOD GAS OXYGEN CONTENT 9.5 Vol % (12.0-20.0); BLOOD GAS PCO2 36 mmHg (38-42); BLOOD GAS PO2 74 mmHg (61-120); BLOOD GAS TOTAL HGB 7.3 G/DL (12.0-16.0); CRITICAL VALUE NO; TEMP CORR TO 98.6
[2017-05-05 15:41] LABS: OXYGEN DEVICE VENTILATOR
[2017-05-05 15:42] LABS: FIO2 80 %
[2017-05-05 15:43] LABS: DRAW SITE ART LINE; NUMBER OF ARTERIAL PUNCTURES 0; STAT NO; ULNAR PULSE PRESENT; VENT SETTINGS PRVC22/400/1.0/12
[2017-05-05] MEDS: ALBUMIN HUMAN 25% 25 GM/100 ML BAGP IV SCH ×2 (16:28→23:44)
[2017-05-05] MEDS: PIPERACIL-TAZO 3.375 GM PREMIX 50 ML IV SCH ×2 (16:28→22:17)
[2017-05-05] MEDS: BUMETANIDE INJ 100 ML IV SCH (16:48)
[2017-05-05] MEDS: POTASSIUM CHLORIDE 30 MEQ/NS 100 ML IV-CENTRAL SCH ×4 (16:49→20:00)
[2017-05-05] MEDS ORDERED: BUMETANIDE INJ 1 MG/4 ML VIAL IV PUSH ONE (17:00)
[2017-05-05] MEDS: DEXTROSE 10%-NS 1000 ML IV SCH ×4 (17:00→22:22)
[2017-05-05] MEDS ORDERED: CHLOROTHIAZIDE SOD 500 MG VIAL IV ONE (17:00)
[2017-05-05 18:28] LABS: BICARBONATE 22.3 MEQ/L (21.0-32.0); MAGNESIUM 2.3 MG/DL (1.5-2.5); POTASSIUM 3.4 MEQ/L (3.5-5.1)
[2017-05-05] MEDS ORDERED: POTASSIUM CHLOR 40 MEQ PREMIX 100 ML IV ONE (19:45)
--- NOTE | 2017-05-05 19:45 | HHI.CCPN ---
Subjective Remarks/Hospital Course This is a 42yF with unremarkable past medical history who presents to the [facility] emergency department with new-onset left-sided weakness and slurred speech. She is an employee of [employer] who had a witnessed onset of her symptoms at 12:45pm. In the [facility] ED she was immediately taken for non-contrasted head CT which was negative for acute hemorrhage. She was given iv tpa which was instituted 36 minutes after arrival, per my conversation with the relations coordinator. She was then emergently transferred to [facility]. CT angiography demonstrated acute right m1 cut-off. She was taken by [facility] and arrived directly to the IR suite, where I met and evaluated the patient. Due to the acute nature of her illness and her dysarthria, a complete history is not obtainable. She does endorse right-sided headache, although denied any chest pain, shortness of breath. 04/27: Back from OR after right craniectomy for decompression s/p left MCA CVA. Heavily sedated. Some new history from a co-worker indicates that patient started taking oral contraceptive 2 months ago. 04/28: Continued problems with cerebral edema as expected. Push osmolality a little higher and restrict fluid. Tolerate pH mildly acidotic to avoid cerebral vascular constriction. 04/29: Osmolality in good range. ICP controlled. Hypothermia to 34 degrees. Raise to 35 slowly as long as ICP is acceptable. Unable to start tube feeds yet as gut motility will be poor at cooler temperature. 04/30: ICP control good. Osmolality acceptable. Temp to 35 degrees. 05/01: Raise temp to 36 degrees and hold. CXR with light basilar infiltrates, no leukocytosis. Heavily sedated for brain protection/ICP control. Persistent blood sugars 60s range - will start D5/NS at 30/hr. 05/02: vasopressor requirement uptrending. wbc uptrending as well. repeat head ct with persistent edema, although ICPs slightly improved. 05/03: slight improvement in vasopressors and lactate with ivf resuscitation. however, still persists on high doses of multiple vasopressors. ICPs stable. off versed. sputum growing chowdhury-sensitive e-coli. I performed critical care bedside echo this morning which demonstrated preserved biventricular function, no significant valvular lesions, ivc with 20% variability and measures at 1.6cm. by echo appears clinically euvolemic. 05/04: vasopressors significantly improved throughout the night. but remains on two vasopressors. this morning, cvp climbing. weaning off sedation. bolt removed. icp's controlled. still poor neurologic exam, despite weaning off sedation. (delayed note entry. seen and evaluated at 06:20am). 05/05: patient seen and evaluated at 06:15am. almost off vasopressors. however, renal function significantly worse. patient is non-oliguric, but failing to diurese fast enough for rising filling pressures. FIO2 up to 100% this morning. CXR with evidence of volume overload. bedside ultrasound of the lungs demonstrate trace pleural effusions with densely consolidated lung oquendo. echo with dilated ivc without respiratory variation, RVSP ~50 mmHg based on trace TR jet. preserved LV and RV function. neuro exam remains poor. Objective Vital Signs Date Time Temp Pulse Resp B/P Pulse Ox O2 Delivery O2 Flow Rate FiO2 05/05/17 18:00 56 05/05/17 18:00 125/68 127/74 Arterial Line 05/05/17 17:01 95 100 05/05/17 16:00 97.2 22 Intake and Output 05/04/17 05/04/17 05/05/17 08:00 16:00 00:00 Intake Total 1580 ml 1824 ml 337 ml Output Total 400 ml 500 ml 1050 ml Balance 1180 ml 1324 ml -713 ml Result Diagram: 05/05/17 0410 05/05/17 1747 Other Results Laboratory Tests Test 05/05/17 05/05/17 04:21 15:31 Blood Gas Puncture Site ART LINE ART LINE Blood Gas Patient Temperature 98.6 98.6 Blood Gas HCO3 18 mmol/L 19 mmol/L (22-26) (22-26) Blood Gas Base Excess -6.6 mmol/L -5.2 mmol/L (-2-2) (-2-2) Blood Gas Oxygen Saturation 94 % (90-100) 92 % (90-100) Arterial Blood pH 7.33 7.35 (7.380-7.420) (7.380-7.420) Arterial Blood Partial 36 mmHg (38-42) 36 mmHg (38-42) Pressure CO2 Arterial Blood Partial 97 mmHg 74 mmHg Pressure O2 (61-120) (61-120) Arterial Blood Oxygen Content 10.1 Vol % 9.5 Vol % (12.0-20.0) (12.0-20.0) Arterial Blood 1.0 % (0-4) 0.9 % (0-4) Carboxyhemoglobin Arterial Blood Methemoglobin 1.3 % (0-2) 1.0 % (0-2) Blood Gas Hemoglobin 7.5 G/DL 7.3 G/DL (12.0-16.0) (12.0-16.0) Oxygen Delivery Device VENTILATOR VENTILATOR Blood Gas Ventilator Setting PRVC/AC PRVC22/400/1.0/12 Blood Gas Inspired Oxygen 100 % 80 % Imaging Last 24 hours Impressions Chest X-Ray 05/05/17 0000 Signed Impressions: Service Date/Time: April 03:59 - CONCLUSION: Prominent bibasilar infiltrates. Tubes and catheters are all in good position Bertin White MD Objective Remarks gen: middle-aged female, lying in bed, unresponsive. heent: mild facial edema resolving. neck: trachea midline. orally intubated. chest: coarse crackles at the bases, good air movement equal chest rise. PCO2 control good. fio2 100%. peep 12. cv: normal rate, regular rhythm. sinus by tele. + JVD. no m,r abd: soft, nontender, nondistended. no guarding. quiet. extr: no peripheral edema. distal pulses palpable, well perfused. neuro: RASS -5;. Left pupil 2 mm, reacts. Right pupil 3 mm, reacts. Otherwise unresponsive. weak cough. A/P Assessment and Plan Assessment: 42yF with acute right M1 MCA CVA now s/p systemic TPA and attempted interventional mechanical thrombectomy. Her course is complicated by malignant cerebral edema requiring decompressive craniectomy and therapeutic hypothermia. She remains with cerebral edema, very critically ill, on vasopressors and now with worsening acute kidney injury and severe volume overload. Neuro exam remains poor despite weaning sedation. I do not think she will do well with renal replacement therapy given cerebral edema. we will ask nephrology to weigh in, and will start more aggressive forced diuresis, but it appears her volume overload is contributing significantly to her maximal ventilatory support. She is very critically ill at this time. Plan by Systems: Neuro: Acute right M1 MCA CVA s/p systemic TPA and endovascular thrombectomy Dysarthria Left-sided hemiparesis Left-sided facial droop Malignant Cerebral Edema s/p Decompressive Craniectomy Elevated ICP -- q1h neuro checks -- wean sedation to obtain neuro exam. -- continue propofol, fentanyl, though hold both of these as long as neuro exam is poor. -- repeat EEG 05/04: generalized slowing. ?ictal focus over right hemisphere. -- repeat head CT 05/02, 05/04: stable edema, slightly enlarged left lateral ventricle, evolving right hemispheric cva -- 3% nacl currently on hold. goal Na 145-155. -- serial bmps -- SBP goal 110 - 160. -- keppra for seizure ppx Respiratory: Acute hypoxic and Hypercarbic respiratory failure -- no SBT today given persistent cerebral edema -- wean fio2 for goal spo2 > 90% -- etco2 monitoring with q12h abg. goal pco2 35 - 40. -- vent bundle -- elevated HOB Cardiovascular Septic Shock- resolved Adrenal Insufficiency Acute intravascular volume overload -- goal sbp 110 - 160 -- phenylephrine titrated to obtain goal -- vasopressin. -- pulse contour analysis and cvp monitoring. Renal: Acute Kidney Injury -- likely multifactorial at this point including ATN. currently hypervolemic. -- continue ribera with strict i/o's -- trend Cr on daily bmp -- start aggressive forced diuresis: Bumex drip 2mg/hr, diuril 500mg iv x 1. FEN/GI Acute protein calorie malnutrition- mild Hypernatremia Lactic Acidosis- resolved. Anion-gap metabolic acidosis -- start trickle TF, nepro. -- ICU electrolyte protocol -- daily bmp, mg, phos. serial electrolytes while on bumex drip. Heme/ID: Anemia secondary to acute blood loss Leukocytosis E. Coli Pneumonia, likely secondary to aspiration at time of stroke -- Zosyn 2.5 gm iv q8h, renally dosed, pulmonary source. -- d/c vancomycin. -- sputum culture 05/01: e.coli, chowdhury sensitive -- urine, blood cultures 05/02 NGTD. -- daily cbc Endo: Hypoglycemia Adrenal Insufficiency -- d10NS for dextrose source to minimize fluids. -- frequent glucose checks. -- hydrocortisone 50mg iv q6h, continue this while still on vasopressors. Prophy: -- SCDs -- pepcid iv for gi prophylaxis Lines: -- LIJ TLC -- left femoral art line. d/c and place radial art line. Overall impression: Large distribution right MCA CVA with shift required decompressive craniectomy 04/27 in an attempt to rescue the dominant hemisphere. She is critically ill with an unstable neurological process and considerable cerebral edema, along with multi organ system dysfunction at this point. This patient remains critically ill with one or more organ systems which are or may become a threat to life. I have spent in excess of 55 minutes discontinuously in the care and management of this patient. This time is exclusive of procedures, and includes, but is not limited to, evaluation of the patient, review of the medical record, discussions with family, consultants, nursing staff, or respiratory therapy, and documentation in the medical record. Remi Freeman MD May 05, 2017 19:45
--- NOTE | 2017-05-05 19:46 | PD.PROCEDR ---
Procedure Note Procedure Procedure: Arterial Line Placement Right radial arterial line placement Diagnosis: Right MCA CVA Indications: Need for beat to beat hemodynamic monitoring Consent: Consent was obtained from the mother Description of the Procedure: The right wrist was prepped and draped sterilely. 1% lidocaine was used for local anesthesia. Ultrasound guidance was used. Under direct ultrasound guidance, the right radial artery was identified. The vascular anatomy of the right wrist was deemed normal. Under direct ultrasound visualization, a needle was advanced into the artery. A 20 gauge, 12 cm catheter was advanced into the artery using a modified Seldinger technique. The catheter was sutured to the skin and a sterile dressing was applied. The catheter was connected to a pressure transducer and an arterial waveform was noted. There were no immediate complications noted. There was minimal EBL. I personally performed the procedure. Remi Freeman MD May 05, 2017 19:46
--- NOTE | 2017-05-05 20:42 | HHI.PR ---
Review/Management Diagnosis right MCA stroke, s/p iv tpa and thrombectomy of right M1 thrombus. Plan continue asa, Diagnosis/Plan: Subjective Subjective Comments No acute events reported Active Medications Current Medications Medications (Trade) Dose Ordered Sig/Elida Route Start Time Stop Time Status Last Admin (D50w (Vial) Inj) 25 ml UNSCH PRN IV PUSH 04/26/17 14:15 05/03/17 06:49 (Protonix Inj) 40 mg DAILY IV 04/27/17 09:00 05/05/17 08:19 (Zofran Inj) 4 mg Q6H PRN IV 04/26/17 14:15 Miscellaneous Information 1 Q361D XX 04/26/17 14:15 (Chlorhexidine 2% Cloth) Taper DAILY@04 TOP 04/27/17 04:00 04/23/18 03:59 04/30/17 04:00 (Chlorhexidine 2% Cloth) 3 pack UNSCH PRN TOP 04/26/17 14:15 (Avelina-Colace) 1 tab BID PO 04/26/17 21:00 05/05/17 08:19 (Trandate Inj) 20 mg Q15M PRN IV PUSH 04/26/17 15:30 Hydralazine HCl 10 mg 10 mg Q30M PRN IV PUSH 04/26/17 15:30 Fentanyl Citrate 250 ml @ 0 mls/hr TITRATE IV 04/26/17 21:45 05/04/17 05:49 Propofol 100 ml @ 0 mls/hr TITRATE IV 04/26/17 22:00 05/03/17 23:20 (Keppra Inj/NS Inj) 105 ml @ 400 mls/hr Q12H IV 04/27/17 21:00 05/05/17 08:19 (Dulcolax Supp) 10 mg DAILY PRN RECTAL 04/27/17 10:30 05/01/17 08:29 (Colace) 100 mg BID PO 04/27/17 21:00 05/04/17 21:03 Calcium Gluconate 1 gm 1 gm UNSCH PRN IV 04/27/17 10:30 04/30/17 19:04 Potassium Chloride 100 ml @ 50 mls/hr UNSCH PRN IV 04/27/17 10:30 (Magnesium Sulfate Inj/NS Inj) 108 ml @ 108 mls/hr UNSCH PRN IV 04/27/17 10:30 05/01/17 17:56 (Morphine Inj) 2 mg Q2H PRN IV PUSH 04/27/17 10:30 (Morphine Inj) 4 mg Q2H PRN IV PUSH 04/27/17 10:30 05/02/17 05:29 (Peridex 0.12% Liq) 15 ml BID@08,20 MT 04/27/17 20:00 05/05/17 08:00 (fentaNYL INJ) 100 mcg Q1H PRN IV PUSH 04/28/17 02:00 05/02/17 05:29 (Lacrilube Opht Oint) APPLY UNDER BOTH EYELIDS BID EACH EYE 04/28/17 21:00 05/05/17 08:19 Lorazepam 1 mg 1 mg Q1H PRN IV 04/28/17 11:15 Miscellaneous Information ml @ 0 mls/hr UNSCH IV 04/28/17 11:15 (NS Flush) 2 ml UNSCH PRN IV FLUSH 04/28/17 11:15 05/02/17 08:14 (NS Flush) 2 ml UNSCH PRN IV FLUSH 04/28/17 11:15 (Lacrilube Opht Oint) 1 applic Q4H PRN EACH EYE 04/28/17 11:15 05/01/17 19:49 Metoclopramide HCl 10 mg 10 mg Q8H IV PUSH 05/01/17 08:00 05/05/17 16:28 Phenylephrine HCl 160 mg/Sodium Chloride 500 ml @ 0 mls/hr TITRATE IV 05/01/17 15:00 05/04/17 02:41 (Sodium Chloride 3% Inj) 500 ml @ 5 mls/hr Q24H IV 05/02/17 04:54 05/02/17 21:41 (Ofirmev Inj) 1,000 mg Q6H PRN IV 05/02/17 09:45 (Aspirin) 325 mg DAILY PO 05/03/17 09:00 05/05/17 08:19 Hydrocortisone Sodium Succinate 50 mg 50 mg Q6HR IV PUSH 05/03/17 12:00 05/05/17 18:00 Sodium Chloride 154 meq/Dextrose 1,000 ml @ 30 mls/hr Q24H IV 05/04/17 17:00 05/05/17 17:00 (Bumex Inj) 100 ml @ 8 mls/hr CONTINUOUS IV 05/05/17 17:00 05/05/17 16:48 Albumin Human 25 gm 25 gm Q8H IV 05/05/17 17:00 05/06/17 09:01 05/05/17 16:28 Piperacillin Sod/ Tazobactam Sod 50 ml @ 100 mls/hr Q6H IV 05/05/17 16:00 05/05/17 16:28 (KCl Inj/NS Inj) 100 ml @ 33.333 mls/ hr Q3H IV-CENTRAL 05/05/17 17:00 05/05/17 22:59 05/05/17 16:49 Allergies Allergies Coded Allergies Shellfish (Verified Allergy, Unknown, 04/26/17) Exam I&O / VS 05/04/17 05/04/17 05/05/17 15:00 23:00 07:00 Intake Total 1824 ml 337 ml 430 ml Output Total 500 ml 1050 ml 900 ml Balance 1324 ml -713 ml -470 ml IV Total 1824 ml 337 ml 430 ml Output Urine Total 300 ml 1000 ml 750 ml Stool Total 100 ml 0 ml 100 ml Gastric Drainage Total 100 ml 50 ml 50 ml Vital Signs Date Time Temp Pulse Resp B/P Pulse Ox O2 Delivery O2 Flow Rate FiO2 05/05/17 18:00 56 05/05/17 18:00 125/68 127/74 Arterial Line 05/05/17 17:01 95 100 05/05/17 17:00 100 05/05/17 16:30 100 05/05/17 16:00 56 05/05/17 16:00 80 05/05/17 16:00 97.2 56 22 119/65 93 105/69 05/05/17 14:00 60 05/05/17 13:55 94 80 05/05/17 12:00 97.3 54 22 123/60 96 97/52 05/05/17 12:00 60 05/05/17 12:00 80 05/05/17 11:10 96 100 05/05/17 10:00 60 05/05/17 08:00 61 05/05/17 08:00 100 05/05/17 08:00 97.9 61 22 131/71 92 112/79 05/05/17 07:50 96 100 05/05/17 06:00 135/74 109/74 05/05/17 06:00 60 05/05/17 04:49 100 05/05/17 04:45 95 100 05/05/17 04:12 96 100 05/05/17 04:00 62 05/05/17 04:00 100 05/05/17 04:00 98.2 62 22 136/75 96 109/77 05/05/17 03:45 100 05/05/17 03:45 94 100 05/05/17 03:30 91 70 05/05/17 03:10 70 05/05/17 02:00 67 05/05/17 00:23 100 45 05/05/17 00:00 64 05/05/17 00:00 98.1 64 22 135/75 100 112/73 05/05/17 00:00 45 05/04/17 22:00 64 05/04/17 20:59 100 50 Exam Comments sedated pupils 4 mm right nonreactive, 2 mm left and reactive no spontaneous limb movement and no withdrawal Objective Micro and Labs Laboratory Tests Test 05/05/17 05/05/17 05/05/17 05/05/17 04:10 04:21 10:45 11:40 White Blood Count 10.2 Red Blood Count 2.52 Hemoglobin 7.7 Hematocrit 22.9 Mean Corpuscular Volume 91.0 Mean Corpuscular Hemoglobin 30.5 Mean Corpuscular Hemoglobin 33.5 Concent Red Cell Distribution Width 15.6 Platelet Count 61 Mean Platelet Volume 10.5 Neutrophils (%) (Auto) 75.8 Lymphocytes (%) (Auto) 13.8 Monocytes (%) (Auto) 9.9 Eosinophils (%) (Auto) 0.1 Basophils (%) (Auto) 0.4 Neutrophils # (Auto) 7.8 Lymphocytes # (Auto) 1.4 Monocytes # (Auto) 1.0 Eosinophils # (Auto) 0.0 Basophils # (Auto) 0.0 CBC Comment AUTO DIFF Differential Total Cells 100 Counted Neutrophils % (Manual) 66 Band Neutrophils % 8 Lymphocytes % 15 Monocytes % 7 Basophils % 1 Neutrophils # (Manual) 7.9 Metamyelocytes 2 Myelocytes 1 Nucleated Red Blood Cells 5 Differential Comment FINAL DIFF MANUAL Dohle Bodies PRESENT Platelet Estimate LOW Platelet Morphology Comment NORMAL Ovalocytes 1+ Acanthocytes OCC Keratocytes OCC Sodium Level 155 156 Potassium Level 3.6 3.4 Chloride Level 123 124 Carbon Dioxide Level 20.7 19.6 Anion Gap 11 12 Blood Urea Nitrogen 27 34 Creatinine 2.03 2.24 Estimat Glomerular Filtration 27 24 Rate Random Glucose 120 127 Calcium Level 7.9 7.8 Blood Gas Puncture Site ART LINE Blood Gas Patient Temperature 98.6 Blood Gas HCO3 18 Blood Gas Base Excess -6.6 Blood Gas Oxygen Saturation 94 Arterial Blood pH 7.33 Arterial Blood Partial 36 Pressure CO2 Arterial Blood Partial 97 Pressure O2 Arterial Blood Oxygen Content 10.1 Arterial Blood 1.0 Carboxyhemoglobin Arterial Blood Methemoglobin 1.3 Blood Gas Hemoglobin 7.5 Oxygen Delivery Device VENTILATOR Blood Gas Ventilator Setting PRVC/AC Blood Gas Inspired Oxygen 100 Vancomycin Level Trough 13.3 Magnesium Level 2.2 Test 05/05/17 05/05/17 05/05/17 12:37 15:31 17:47 B-Type Natriuretic Peptide 1238 Blood Gas Puncture Site ART LINE Blood Gas Patient Temperature 98.6 Blood Gas HCO3 19 Blood Gas Base Excess -5.2 Blood Gas Oxygen Saturation 92 Arterial Blood pH 7.35 Arterial Blood Partial 36 Pressure CO2 Arterial Blood Partial 74 Pressure O2 Arterial Blood Oxygen Content 9.5 Arterial Blood 0.9 Carboxyhemoglobin Arterial Blood Methemoglobin 1.0 Blood Gas Hemoglobin 7.3 Oxygen Delivery Device VENTILATOR Blood Gas Ventilator Setting PRVC22/400/1.0/12 Blood Gas Inspired Oxygen 80 Sodium Level 156 Potassium Level 3.4 Chloride Level 122 Carbon Dioxide Level 22.3 Anion Gap 12 Blood Urea Nitrogen 40 Creatinine 2.34 Estimat Glomerular Filtration 23 Rate Random Glucose 125 Calcium Level 8.0 Magnesium Level 2.3 Date/Time Procedure Status Source Growth 05/02/17 13:30 Aerobic Blood Culture - Preliminary Resulted Blood Peripheral NO GROWTH IN 3 DAYS 05/02/17 13:30 Anaerobic Blood Culture - Preliminary Resulted Blood Peripheral NO GROWTH IN 3 DAYS 05/01/17 06:58 Gram Stain - Final Complete Sputum Endotracheal 05/01/17 06:58 Sputum Culture - Final Complete Escherichia Coli Santana Gomez PhD May 05, 2017 20:42
[2017-05-06] VITALS (21 sets, daily range): BP systolic 113–170; BP diastolic 65–89; PULSE 61–94; RESP 22–24; TEMP 96.8–98.8; O2SAT 93–98
[2017-05-06 00:55] LABS: BICARBONATE 24.6 MEQ/L (21.0-32.0); MAGNESIUM 2.4 MG/DL (1.5-2.5); POTASSIUM 3.3 MEQ/L (3.5-5.1)
[2017-05-06] MEDS ORDERED: POTASSIUM CHLORIDE 25 MEQ EFFERVESCENT TAB OG-TUBE ONE (02:15)
[2017-05-06] MEDS ORDERED: SODIUM CHLOR 0.45% IV ONE ×2 (02:30→20:00)
[2017-05-06] MEDS ORDERED: POTASSIUM CHLORIDE IV ONE ×2 (02:30→20:00)
[2017-05-06] MEDS: INSULIN NovoLIN REGULAR SUPPLEMENTAL SCALE SQ SCH ×5 (03:00→21:00)
[2017-05-06] MEDS: CHLORHEXIDINE GLUCONATE 2 % 1 PACK (2 CLOTHS) TOP SCH (04:00)
[2017-05-06] MEDS: 3% SALINE INJ 500 ML IV SCH (04:54)
[2017-05-06 05:41] LABS: BLOOD GAS BASE EXCESS -1.3 mmol/L (-2-2); BLOOD GAS HCO3 23 mmol/L (22-26); BLOOD GAS METHEMOGLOBIN 1.3 % (0-2); BLOOD GAS O2 HGB SATURATION 91 % (90-100); BLOOD GAS OXYGEN CONTENT 9.8 Vol % (12.0-20.0); BLOOD GAS PCO2 37 mmHg (38-42); BLOOD GAS PO2 72 mmHg (61-120); BLOOD GAS TOTAL HGB 7.6 G/DL (12.0-16.0); CRITICAL VALUE NO; FIO2 90 %; OXYGEN DEVICE VENTILATOR; TEMP CORR TO 98.6; VENT SETTINGS PRVC/AC
[2017-05-06 05:42] LABS: DRAW SITE ART LINE; STAT NO
[2017-05-06] MEDS: PHENYLEPHRINE INJ 160 MG in SODIUM CHLORID 0.9% 500 ML INJ 484 ML IV SCH (05:55)
[2017-05-06] MEDS: HYDROCORTISONE SOD SUCCINATE 100 MG VIAL IV PUSH SCH ×3 (05:55→17:20)
[2017-05-06] MEDS: PIPERACIL-TAZO 3.375 GM PREMIX 50 ML IV SCH ×3 (05:55→17:21)
[2017-05-06 06:16] LABS: HEMATOCRIT 22.4 % (35.0-46.0); MEAN CELL VOLUME 90.1 FL (80.0-100.0); MEAN CORPUSCULAR HEMOGLOBIN 29.8 PG (27.0-34.0); MEAN CORPUSCULAR HGB CONC 33.1 % (32.0-36.0); PLATELET COUNT 59 TH/MM3 (150-450); RED BLOOD COUNT 2.49 MIL/MM3 (4.00-5.30); RED CELL DISTRIBUTION WIDTH 15.1 % (11.6-17.2); WHITE BLOOD COUNT 12.4 TH/MM3 (4.0-11.0)
[2017-05-06 06:21] LABS: REVIEW FLAG FINAL
[2017-05-06 06:46] LABS: BICARBONATE 25.3 MEQ/L (21.0-32.0); MAGNESIUM 2.5 MG/DL (1.5-2.5); POTASSIUM 3.6 MEQ/L (3.5-5.1)
[2017-05-06] MEDS: CHLORHEXIDINE 0.12% (ORAL KIT) 15 ML CUP MT SCH ×2 (08:00→20:00)
[2017-05-06] MEDS: METOCLOPRAMIDE HCL 10 MG/2 ML VIAL IV PUSH SCH ×3 (08:00→17:21)
[2017-05-06] MEDS: DOCUSATE SODIUM 50 MG/SENNA 8.6 MG TAB PO SCH ×2 (08:54→20:32)
[2017-05-06] MEDS: PANTOPRAZOLE SODIUM 40 MG VIAL IV SCH (08:54)
[2017-05-06] MEDS: ASPIRIN 325 MG TAB PO SCH (08:54)
[2017-05-06] MEDS: ARTIFICIAL TEARS OPTH OINT 3.5 APPLIC/3.5 GM TUBO EACH EYE SCH ×2 (08:55→20:33)
[2017-05-06] MEDS: DOCUSATE SODIUM 100 MG CAP PO SCH ×2 (08:55→20:32)
[2017-05-06] MEDS: levETIRAcetam INJ 500 MG in SODIUM CHLORIDE 0.9% INJ 100 ML IV SCH ×2 (08:55→20:33)
[2017-05-06] MEDS: ALBUMIN HUMAN 25% 25 GM/100 ML BAGP IV SCH (08:55)
[2017-05-06 10:03] LABS: BICARBONATE 23.9 MEQ/L (21.0-32.0); POTASSIUM 3.6 MEQ/L (3.5-5.1)
--- NOTE | 2017-05-06 10:35 | HHI.PR ---
Review/Management Diagnosis right MCA stroke, s/p iv tpa and thrombectomy of right M1 thrombus. Plan continue asa, Diagnosis/Plan: Subjective Subjective Comments No acute events reported Active Medications Current Medications Medications (Trade) Dose Ordered Sig/Elida Route Start Time Stop Time Status Last Admin (D50w (Vial) Inj) 25 ml UNSCH PRN IV PUSH 04/26/17 14:15 05/03/17 06:49 (Protonix Inj) 40 mg DAILY IV 04/27/17 09:00 05/06/17 08:54 (Zofran Inj) 4 mg Q6H PRN IV 04/26/17 14:15 Miscellaneous Information 1 Q361D XX 04/26/17 14:15 (Chlorhexidine 2% Cloth) Taper DAILY@04 TOP 04/27/17 04:00 04/23/18 03:59 04/30/17 04:00 (Chlorhexidine 2% Cloth) 3 pack UNSCH PRN TOP 04/26/17 14:15 (Avelina-Colace) 1 tab BID PO 04/26/17 21:00 05/06/17 08:54 (Trandate Inj) 20 mg Q15M PRN IV PUSH 04/26/17 15:30 Hydralazine HCl 10 mg 10 mg Q30M PRN IV PUSH 04/26/17 15:30 Fentanyl Citrate 250 ml @ 0 mls/hr TITRATE IV 04/26/17 21:45 05/04/17 05:49 Propofol 100 ml @ 0 mls/hr TITRATE IV 04/26/17 22:00 05/03/17 23:20 (Keppra Inj/NS Inj) 105 ml @ 400 mls/hr Q12H IV 04/27/17 21:00 05/06/17 08:55 (Dulcolax Supp) 10 mg DAILY PRN RECTAL 04/27/17 10:30 05/01/17 08:29 (Colace) 100 mg BID PO 04/27/17 21:00 05/05/17 22:17 Calcium Gluconate 1 gm 1 gm UNSCH PRN IV 04/27/17 10:30 04/30/17 19:04 Potassium Chloride 100 ml @ 50 mls/hr UNSCH PRN IV 04/27/17 10:30 (Magnesium Sulfate Inj/NS Inj) 108 ml @ 108 mls/hr UNSCH PRN IV 04/27/17 10:30 05/01/17 17:56 (Morphine Inj) 2 mg Q2H PRN IV PUSH 04/27/17 10:30 (Morphine Inj) 4 mg Q2H PRN IV PUSH 04/27/17 10:30 05/02/17 05:29 (Peridex 0.12% Liq) 15 ml BID@08,20 MT 04/27/17 20:00 05/06/17 08:00 (fentaNYL INJ) 100 mcg Q1H PRN IV PUSH 04/28/17 02:00 05/02/17 05:29 (Lacrilube Opht Oint) APPLY UNDER BOTH EYELIDS BID EACH EYE 04/28/17 21:00 05/06/17 08:55 Lorazepam 1 mg 1 mg Q1H PRN IV 04/28/17 11:15 Miscellaneous Information ml @ 0 mls/hr UNSCH IV 04/28/17 11:15 (NS Flush) 2 ml UNSCH PRN IV FLUSH 04/28/17 11:15 05/02/17 08:14 (NS Flush) 2 ml UNSCH PRN IV FLUSH 04/28/17 11:15 Artificial Tears 1 applic 1 applic Q4H PRN EACH EYE 04/28/17 11:15 05/01/17 19:49 Phenylephrine HCl 160 mg/Sodium Chloride 500 ml @ 0 mls/hr TITRATE IV 05/01/17 15:00 05/06/17 05:55 (Sodium Chloride 3% Inj) 500 ml @ 5 mls/hr Q24H IV 05/02/17 04:54 05/02/17 21:41 (Ofirmev Inj) 1,000 mg Q6H PRN IV 05/02/17 09:45 (Aspirin) 325 mg DAILY PO 05/03/17 09:00 05/06/17 08:54 Hydrocortisone Sodium Succinate 50 mg 50 mg Q6HR IV PUSH 05/03/17 12:00 05/06/17 05:55 Sodium Chloride 154 meq/Dextrose 1,000 ml @ 30 mls/hr Q24H IV 05/04/17 17:00 05/05/17 22:22 Bumetanide 100 ml @ 8 mls/hr CONTINUOUS IV 05/05/17 17:00 05/05/17 16:48 (Zosyn 3.375 Gm Premix) 50 ml @ 100 mls/hr Q6H IV 05/05/17 16:00 05/06/17 08:56 (Reglan Inj) 5 mg Q8H IV PUSH 05/06/17 00:00 05/06/17 08:00 Allergies Allergies Coded Allergies Shellfish (Verified Allergy, Unknown, 04/26/17) Exam I&O / VS 05/05/17 05/05/17 05/06/17 15:00 23:00 07:00 Intake Total 748 ml 747 ml Output Total 1700 ml 3950 ml 2900 ml Balance -952 ml -3203 ml -2900 ml IV Total 748 ml 747 ml Output Urine Total 1450 ml 3800 ml 2800 ml Stool Total 100 ml 100 ml 0 ml Gastric Drainage Total 150 ml 50 ml 100 ml Vital Signs Date Time Temp Pulse Resp B/P Pulse Ox O2 Delivery O2 Flow Rate FiO2 05/06/17 10:00 73 05/06/17 08:20 93 60 05/06/17 08:00 73 05/06/17 08:00 60 05/06/17 08:00 97.2 73 22 156/79 95 132/82 05/06/17 06:12 93 60 05/06/17 06:00 63 157/85 144/75 05/06/17 06:00 64 05/06/17 04:33 98 90 05/06/17 04:00 66 05/06/17 04:00 96.8 66 22 144/75 96 139/78 05/06/17 04:00 90 05/06/17 02:00 94 05/06/17 01:29 97 90 05/06/17 00:00 90 05/06/17 00:00 61 05/06/17 00:00 98.6 61 22 145/89 96 05/05/17 22:00 60 05/05/17 21:34 95 90 05/05/17 20:00 98.1 61 22 135/75 96 05/05/17 20:00 61 05/05/17 20:00 90 05/05/17 18:00 56 05/05/17 18:00 125/68 127/74 Arterial Line 05/05/17 17:01 95 100 05/05/17 17:00 100 05/05/17 16:30 100 05/05/17 16:00 56 05/05/17 16:00 80 05/05/17 16:00 97.2 56 22 119/65 93 105/69 05/05/17 14:00 60 05/05/17 13:55 94 80 05/05/17 12:00 97.3 54 22 123/60 96 97/52 05/05/17 12:00 60 05/05/17 12:00 80 05/05/17 11:10 96 100 Exam Comments nonresponsive pupils 3 mm right nonreactive, 2 mm left and reactive no spontaneous limb movement and no withdrawal Objective Micro and Labs Laboratory Tests Test 05/05/17 05/05/17 05/05/17 05/05/17 10:45 11:40 12:37 15:31 Vancomycin Level Trough 13.3 Sodium Level 156 Potassium Level 3.4 Chloride Level 124 Carbon Dioxide Level 19.6 Anion Gap 12 Blood Urea Nitrogen 34 Creatinine 2.24 Estimat Glomerular Filtration 24 Rate Random Glucose 127 Calcium Level 7.8 Magnesium Level 2.2 B-Type Natriuretic Peptide 1238 Blood Gas Puncture Site ART LINE Blood Gas Patient Temperature 98.6 Blood Gas HCO3 19 Blood Gas Base Excess -5.2 Blood Gas Oxygen Saturation 92 Arterial Blood pH 7.35 Arterial Blood Partial 36 Pressure CO2 Arterial Blood Partial 74 Pressure O2 Arterial Blood Oxygen Content 9.5 Arterial Blood 0.9 Carboxyhemoglobin Arterial Blood Methemoglobin 1.0 Blood Gas Hemoglobin 7.3 Oxygen Delivery Device VENTILATOR Blood Gas Ventilator Setting PRVC22/400/1.0/12 Blood Gas Inspired Oxygen 80 Test 05/05/17 05/06/17 05/06/17 05/06/17 17:47 00:15 05:29 06:00 Sodium Level 156 156 155 Potassium Level 3.4 3.3 3.6 Chloride Level 122 120 119 Carbon Dioxide Level 22.3 24.6 25.3 Anion Gap 12 11 11 Blood Urea Nitrogen 40 46 47 Creatinine 2.34 2.40 2.46 Estimat Glomerular Filtration 23 22 21 Rate Random Glucose 125 114 116 Calcium Level 8.0 8.4 8.5 Magnesium Level 2.3 2.4 2.5 Blood Gas Puncture Site ART LINE Blood Gas Patient Temperature 98.6 Blood Gas HCO3 23 Blood Gas Base Excess -1.3 Blood Gas Oxygen Saturation 91 Arterial Blood pH 7.40 Arterial Blood Partial 37 Pressure CO2 Arterial Blood Partial 72 Pressure O2 Arterial Blood Oxygen Content 9.8 Arterial Blood 1.0 Carboxyhemoglobin Arterial Blood Methemoglobin 1.3 Blood Gas Hemoglobin 7.6 Oxygen Delivery Device VENTILATOR Blood Gas Ventilator Setting PRVC/AC Blood Gas Inspired Oxygen 90 White Blood Count 12.4 Red Blood Count 2.49 Hemoglobin 7.4 Hematocrit 22.4 Mean Corpuscular Volume 90.1 Mean Corpuscular Hemoglobin 29.8 Mean Corpuscular Hemoglobin 33.1 Concent Red Cell Distribution Width 15.1 Platelet Count 59 Mean Platelet Volume 9.4 Phosphorus Level 4.6 Test 05/06/17 09:18 Sodium Level 155 Potassium Level 3.6 Chloride Level 119 Carbon Dioxide Level 23.9 Anion Gap 12 Blood Urea Nitrogen 50 Creatinine 2.45 Estimat Glomerular Filtration 21 Rate Random Glucose 106 Calcium Level 8.7 Date/Time Procedure Status Source Growth 05/02/17 13:30 Aerobic Blood Culture - Preliminary Resulted Blood Peripheral NO GROWTH IN 3 DAYS 05/02/17 13:30 Anaerobic Blood Culture - Preliminary Resulted Blood Peripheral NO GROWTH IN 3 DAYS Santana Gomez PhD May 06, 2017 10:34
--- NOTE | 2017-05-06 10:44 | HHI.CCPN ---
Subjective Remarks/Hospital Course This is a 42yF with unremarkable past medical history who presents to the [facility] emergency department with new-onset left-sided weakness and slurred speech. She is an employee of [employer] who had a witnessed onset of her symptoms at 12:45pm. In the [facility] ED she was immediately taken for non-contrasted head CT which was negative for acute hemorrhage. She was given iv tpa which was instituted 36 minutes after arrival, per my conversation with the real estate transaction coordinator. She was then emergently transferred to [facility]. CT angiography demonstrated acute right m1 cut-off. She was taken by [facility] and arrived directly to the IR suite, where I met and evaluated the patient. Due to the acute nature of her illness and her dysarthria, a complete history is not obtainable. She does endorse right-sided headache, although denied any chest pain, shortness of breath. 04/27: Back from OR after right craniectomy for decompression s/p left MCA CVA. Heavily sedated. Some new history from a co-worker indicates that patient started taking oral contraceptive 2 months ago. 04/28: Continued problems with cerebral edema as expected. Push osmolality a little higher and restrict fluid. Tolerate pH mildly acidotic to avoid cerebral vascular constriction. 04/29: Osmolality in good range. ICP controlled. Hypothermia to 34 degrees. Raise to 35 slowly as long as ICP is acceptable. Unable to start tube feeds yet as gut motility will be poor at cooler temperature. 04/30: ICP control good. Osmolality acceptable. Temp to 35 degrees. 05/01: Raise temp to 36 degrees and hold. CXR with light basilar infiltrates, no leukocytosis. Heavily sedated for brain protection/ICP control. Persistent blood sugars 60s range - will start D5/NS at 30/hr. 05/02: vasopressor requirement uptrending. wbc uptrending as well. repeat head ct with persistent edema, although ICPs slightly improved. 05/03: slight improvement in vasopressors and lactate with ivf resuscitation. however, still persists on high doses of multiple vasopressors. ICPs stable. off versed. sputum growing chowdhury-sensitive e-coli. I performed critical care bedside echo this morning which demonstrated preserved biventricular function, no significant valvular lesions, ivc with 20% variability and measures at 1.6cm. by echo appears clinically euvolemic. 05/04: vasopressors significantly improved throughout the night. but remains on two vasopressors. this morning, cvp climbing. weaning off sedation. bolt removed. icp's controlled. still poor neurologic exam, despite weaning off sedation. (delayed note entry. seen and evaluated at 06:20am). 05/05: patient seen and evaluated at 06:15am. almost off vasopressors. however, renal function significantly worse. patient is non-oliguric, but failing to diurese fast enough for rising filling pressures. FIO2 up to 100% this morning. CXR with evidence of volume overload. bedside ultrasound of the lungs demonstrate trace pleural effusions with densely consolidated lung oquendo. echo with dilated ivc without respiratory variation, RVSP ~50 mmHg based on trace TR jet. preserved LV and RV function. neuro exam remains poor. 05/06: diuresed > 8L uop overnight. fio2 down to 60%. Cr stabilized. Nephrology consulted. neuro exam still poor. Objective Vital Signs Date Time Temp Pulse Resp B/P Pulse Ox O2 Delivery O2 Flow Rate FiO2 05/06/17 10:00 73 05/06/17 08:20 93 60 05/06/17 08:00 97.2 22 156/79 132/82 Intake and Output 05/05/17 05/05/17 05/06/17 08:00 16:00 00:00 Intake Total 430 ml 748 ml 747 ml Output Total 900 ml 1700 ml 3950 ml Balance -470 ml -952 ml -3203 ml Result Diagram: 05/06/17 0600 05/06/17 0918 Other Results Laboratory Tests Test 05/05/17 05/06/17 15:31 05:29 Blood Gas Puncture Site ART LINE ART LINE Blood Gas Patient Temperature 98.6 98.6 Blood Gas HCO3 19 mmol/L 23 mmol/L (22-26) (22-26) Blood Gas Base Excess -5.2 mmol/L -1.3 mmol/L (-2-2) (-2-2) Blood Gas Oxygen Saturation 92 % (90-100) 91 % (90-100) Arterial Blood pH 7.35 7.40 (7.380-7.420) (7.380-7.420) Arterial Blood Partial 36 mmHg (38-42) 37 mmHg (38-42) Pressure CO2 Arterial Blood Partial 74 mmHg 72 mmHg Pressure O2 (61-120) (61-120) Arterial Blood Oxygen Content 9.5 Vol % 9.8 Vol % (12.0-20.0) (12.0-20.0) Arterial Blood 0.9 % (0-4) 1.0 % (0-4) Carboxyhemoglobin Arterial Blood Methemoglobin 1.0 % (0-2) 1.3 % (0-2) Blood Gas Hemoglobin 7.3 G/DL 7.6 G/DL (12.0-16.0) (12.0-16.0) Oxygen Delivery Device VENTILATOR VENTILATOR Blood Gas Ventilator Setting PRVC22/400/1.0/12 PRVC/AC Blood Gas Inspired Oxygen 80 % 90 % Imaging Last 24 hours Impressions Chest X-Ray 05/05/17 0000 Signed Impressions: Service Date/Time: April 03:59 - CONCLUSION: Prominent bibasilar infiltrates. Tubes and catheters are all in good position Bertin White MD Objective Remarks gen: middle-aged female, lying in bed, unresponsive. heent: mild facial edema resolving. neck: trachea midline. orally intubated. chest: coarse crackles at the bases, good air movement equal chest rise. PCO2 control good. fio2 60%. peep 12. cv: normal rate, regular rhythm. sinus by tele. + JVD. no m,r abd: soft, nontender, nondistended. no guarding. extr: no peripheral edema. distal pulses palpable, well perfused. neuro: RASS -5;. Left pupil 2 mm, reacts. Right pupil 3 mm, reacts. Otherwise unresponsive. weak cough. A/P Assessment and Plan Assessment: 42yF with acute right M1 MCA CVA now s/p systemic TPA and attempted interventional mechanical thrombectomy. Her course is complicated by malignant cerebral edema requiring decompressive craniectomy and therapeutic hypothermia. She remains with cerebral edema, very critically ill, on vasopressors and now with worsening acute kidney injury and severe volume overload. Neuro exam remains poor despite weaning sedation. I do not think she will do well with renal replacement therapy given cerebral edema. Continue aggressive forced diuresis in an attempt to improve oxygenation. She is very critically ill at this time and off pathway. without current maximal level of support, she would . Plan by Systems: Neuro: Acute right M1 MCA CVA s/p systemic TPA and endovascular thrombectomy Dysarthria Left-sided hemiparesis Left-sided facial droop Malignant Cerebral Edema s/p Decompressive Craniectomy Elevated ICP -- q1h neuro checks -- wean sedation to obtain neuro exam. -- continue to hold all sedation. -- repeat EEG 05/04: generalized slowing. ?ictal focus over right hemisphere. -- repeat head CT 05/02, 05/04: stable edema, slightly enlarged left lateral ventricle, evolving right hemispheric cva -- 3% nacl currently on hold. goal Na 145-155. -- serial bmps -- SBP goal 110 - 160. -- keppra for seizure ppx Respiratory: Acute hypoxic and Hypercarbic respiratory failure -- no SBT today given persistent cerebral edema and high vent requirements. -- wean fio2 for goal spo2 > 90% -- etco2 monitoring with q12h abg. goal pco2 35 - 40. -- vent bundle -- elevated HOB Cardiovascular Septic Shock- resolved Adrenal Insufficiency Acute intravascular volume overload -- goal sbp 110 - 160 -- phenylephrine titrated to obtain goal -- pulse contour analysis and cvp monitoring. Renal: Acute Kidney Injury -- likely multifactorial at this point including ATN. currently hypervolemic. -- continue ribera with strict i/o's -- trend Cr on daily bmp -- continue aggressive forced diuresis: Bumex drip 2mg/hr FEN/GI Acute protein calorie malnutrition- mild Hypernatremia Lactic Acidosis- resolved. Anion-gap metabolic acidosis -- TF, nepro. -- ICU electrolyte protocol -- daily bmp, mg, phos. serial electrolytes while on bumex drip. Heme/ID: Anemia secondary to acute blood loss Leukocytosis E. Coli Pneumonia, likely secondary to aspiration at time of stroke -- Zosyn 2.5 gm iv q8h, renally dosed, pulmonary source. -- sputum culture 05/01: e.coli, chowdhury sensitive -- urine, blood cultures 05/02 NGTD. -- daily cbc Endo: Hypoglycemia Adrenal Insufficiency -- d10NS for dextrose source to minimize fluids. -- frequent glucose checks. -- hydrocortisone 50mg iv q6h, continue this while still on vasopressors. Prophy: -- SCDs -- pepcid iv for gi prophylaxis Lines: -- LIJ TLC -- right radial art line 05/05 Overall impression: Large distribution right MCA CVA with shift required decompressive craniectomy 04/27 in an attempt to rescue the dominant hemisphere. She is critically ill with an unstable neurological process and considerable cerebral edema, along with multi organ system dysfunction at this point. This patient remains critically ill with one or more organ systems which are or may become a threat to life. I have spent in excess of 39 minutes discontinuously in the care and management of this patient. This time is exclusive of procedures, and includes, but is not limited to, evaluation of the patient, review of the medical record, discussions with family, consultants, nursing staff, or respiratory therapy, and documentation in the medical record. Remi Freeman MD May 06, 2017 10:43
[2017-05-06] MEDS ORDERED: PHARMACY ORDERED LAB ONE (10:45)
--- NOTE | 2017-05-06 11:17 | PD.CONS ---
HPI Service Nephrology Consult Requested By Reason for Consult Acute renal failure, fluid overload Primary Care Physician Tenzin Villalba MD History of Present Illness This is a 42 y/o female with no PMH. She was at work when she suffered a CVA, received TPA. That was on 04/26. She later went to OR for craniotomy, clot removal, apparently suffered pawan in femoral artery that was later repaired in OR. She received a blood transfusion at that time. She became hypotensive and was on mulitple pressors, the last of which was turned off this morning and BP is holding. Her renal function was normal on arrival, creatinine was 0.5. On 05/01 it was 0.96. Since then it has been fluctuant and is 2.46 today. As of yesterday her urine output had dropped, she was demonstrating fluid overload, and was started on Bumex gtt at 2 mg/hr. She has permissive hypernatremia for cerebral edema. We were consulted for renal management. (Edna Nicole) Review of Systems ROS Limitations: Intubated, Unresponsive (Edna Nicole) Past Family Social History Allergies: Coded Allergies: Shellfish (Verified Allergy, Unknown, 04/26/17) Past Medical History NOne Past Surgical History None Reported Medications None Active Ordered Medications Current Medications Medications (Trade) Dose Ordered Sig/Elida Route Start Time Stop Time Status Last Admin (D50w (Vial) Inj) 25 ml UNSCH PRN IV PUSH 04/26/17 14:15 05/03/17 06:49 (Protonix Inj) 40 mg DAILY IV 04/27/17 09:00 05/06/17 08:54 (Zofran Inj) 4 mg Q6H PRN IV 04/26/17 14:15 Miscellaneous Information 1 Q361D XX 04/26/17 14:15 (Chlorhexidine 2% Cloth) Taper DAILY@04 TOP 04/27/17 04:00 04/23/18 03:59 04/30/17 04:00 (Chlorhexidine 2% Cloth) 3 pack UNSCH PRN TOP 04/26/17 14:15 (Avelina-Colace) 1 tab BID PO 04/26/17 21:00 05/06/17 08:54 (Trandate Inj) 20 mg Q15M PRN IV PUSH 04/26/17 15:30 Hydralazine HCl 10 mg 10 mg Q30M PRN IV PUSH 04/26/17 15:30 (Keppra Inj/NS Inj) 105 ml @ 400 mls/hr Q12H IV 04/27/17 21:00 05/06/17 08:55 (Dulcolax Supp) 10 mg DAILY PRN RECTAL 04/27/17 10:30 05/01/17 08:29 (Colace) 100 mg BID PO 04/27/17 21:00 05/05/17 22:17 Calcium Gluconate 1 gm 1 gm UNSCH PRN IV 04/27/17 10:30 04/30/17 19:04 Potassium Chloride 100 ml @ 50 mls/hr UNSCH PRN IV 04/27/17 10:30 (Magnesium Sulfate Inj/NS Inj) 108 ml @ 108 mls/hr UNSCH PRN IV 04/27/17 10:30 05/01/17 17:56 (Morphine Inj) 2 mg Q2H PRN IV PUSH 04/27/17 10:30 (Morphine Inj) 4 mg Q2H PRN IV PUSH 04/27/17 10:30 05/02/17 05:29 (Peridex 0.12% Liq) 15 ml BID@08,20 MT 04/27/17 20:00 05/06/17 08:00 (Lacrilube Opht Oint) APPLY UNDER BOTH EYELIDS BID EACH EYE 04/28/17 21:00 05/06/17 08:55 Lorazepam 1 mg 1 mg Q1H PRN IV 04/28/17 11:15 Miscellaneous Information ml @ 0 mls/hr UNSCH IV 04/28/17 11:15 (NS Flush) 2 ml UNSCH PRN IV FLUSH 04/28/17 11:15 05/02/17 08:14 (NS Flush) 2 ml UNSCH PRN IV FLUSH 04/28/17 11:15 Artificial Tears 1 applic 1 applic Q4H PRN EACH EYE 04/28/17 11:15 05/01/17 19:49 (Neosynephrine Inj/NS 500 ml Inj) 500 ml @ 0 mls/hr TITRATE IV 05/01/17 15:00 05/06/17 05:55 (Ofirmev Inj) 1,000 mg Q6H PRN IV 05/02/17 09:45 (Aspirin) 325 mg DAILY PO 05/03/17 09:00 05/06/17 08:54 Hydrocortisone Sodium Succinate 50 mg 50 mg Q6HR IV PUSH 05/03/17 12:00 05/06/17 05:55 Sodium Chloride 154 meq/Dextrose 1,000 ml @ 30 mls/hr Q24H IV 05/04/17 17:00 05/05/17 22:22 Bumetanide 100 ml @ 8 mls/hr CONTINUOUS IV 05/05/17 17:00 05/05/17 16:48 (Zosyn 3.375 Gm Premix) 50 ml @ 100 mls/hr Q6H IV 05/05/17 16:00 05/06/17 08:56 (Reglan Inj) 5 mg Q8H IV PUSH 05/06/17 00:00 05/06/17 08:00 Family History unable to obtain Social History no smoking unable to obtain other information 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 [employer] (Edna Nicole) Physical Exam Vital Signs Vital Signs Date Time Temp Pulse Resp B/P Pulse Ox O2 Delivery O2 Flow Rate FiO2 05/06/17 10:00 73 05/06/17 08:20 93 60 05/06/17 08:00 73 05/06/17 08:00 60 05/06/17 08:00 97.2 73 22 156/79 95 132/82 05/06/17 06:12 93 60 05/06/17 06:00 63 157/85 144/75 05/06/17 06:00 64 05/06/17 04:33 98 90 05/06/17 04:00 66 05/06/17 04:00 96.8 66 22 144/75 96 139/78 05/06/17 04:00 90 05/06/17 02:00 94 05/06/17 01:29 97 90 05/06/17 00:00 90 05/06/17 00:00 61 05/06/17 00:00 98.6 61 22 145/89 96 05/05/17 22:00 60 05/05/17 21:34 95 90 05/05/17 20:00 98.1 61 22 135/75 96 05/05/17 20:00 61 05/05/17 20:00 90 05/05/17 18:00 56 05/05/17 18:00 125/68 127/74 Arterial Line 05/05/17 17:01 95 100 05/05/17 17:00 100 05/05/17 16:30 100 05/05/17 16:00 56 05/05/17 16:00 80 05/05/17 16:00 97.2 56 22 119/65 93 105/69 05/05/17 14:00 60 05/05/17 13:55 94 80 05/05/17 12:00 97.3 54 22 123/60 96 97/52 05/05/17 12:00 60 05/05/17 12:00 80 05/05/17 11:10 96 100 Physical Exam Young female, on vent, unresponsive does not open eyes S1/S2, regular without murmurs lungs; rales throughout abdomen soft, NG tube to suction Ext: 3+ edema throughout skin intact aside from craniotomy site with anne Laboratory Laboratory Tests Test 05/05/17 05/05/17 05/05/17 05/05/17 11:40 12:37 15:31 17:47 Sodium Level 156 156 Potassium Level 3.4 3.4 Chloride Level 124 122 Carbon Dioxide Level 19.6 22.3 Anion Gap 12 12 Blood Urea Nitrogen 34 40 Creatinine 2.24 2.34 Estimat Glomerular Filtration 24 23 Rate Random Glucose 127 125 Calcium Level 7.8 8.0 Magnesium Level 2.2 2.3 B-Type Natriuretic Peptide 1238 Blood Gas Puncture Site ART LINE Blood Gas Patient Temperature 98.6 Blood Gas HCO3 19 Blood Gas Base Excess -5.2 Blood Gas Oxygen Saturation 92 Arterial Blood pH 7.35 Arterial Blood Partial 36 Pressure CO2 Arterial Blood Partial 74 Pressure O2 Arterial Blood Oxygen Content 9.5 Arterial Blood 0.9 Carboxyhemoglobin Arterial Blood Methemoglobin 1.0 Blood Gas Hemoglobin 7.3 Oxygen Delivery Device VENTILATOR Blood Gas Ventilator Setting PRVC22/400/1.0/12 Blood Gas Inspired Oxygen 80 Test 05/06/17 05/06/17 05/06/17 05/06/17 00:15 05:29 06:00 09:18 Sodium Level 156 155 155 Potassium Level 3.3 3.6 3.6 Chloride Level 120 119 119 Carbon Dioxide Level 24.6 25.3 23.9 Anion Gap 11 11 12 Blood Urea Nitrogen 46 47 50 Creatinine 2.40 2.46 2.45 Estimat Glomerular Filtration 22 21 21 Rate Random Glucose 114 116 106 Calcium Level 8.4 8.5 8.7 Magnesium Level 2.4 2.5 Blood Gas Puncture Site ART LINE Blood Gas Patient Temperature 98.6 Blood Gas HCO3 23 Blood Gas Base Excess -1.3 Blood Gas Oxygen Saturation 91 Arterial Blood pH 7.40 Arterial Blood Partial 37 Pressure CO2 Arterial Blood Partial 72 Pressure O2 Arterial Blood Oxygen Content 9.8 Arterial Blood 1.0 Carboxyhemoglobin Arterial Blood Methemoglobin 1.3 Blood Gas Hemoglobin 7.6 Oxygen Delivery Device VENTILATOR Blood Gas Ventilator Setting PRVC/AC Blood Gas Inspired Oxygen 90 White Blood Count 12.4 Red Blood Count 2.49 Hemoglobin 7.4 Hematocrit 22.4 Mean Corpuscular Volume 90.1 Mean Corpuscular Hemoglobin 29.8 Mean Corpuscular Hemoglobin 33.1 Concent Red Cell Distribution Width 15.1 Platelet Count 59 Mean Platelet Volume 9.4 Phosphorus Level 4.6 Date/Time Procedure Status Source Growth 05/02/17 13:30 Aerobic Blood Culture - Preliminary Resulted Blood Peripheral NO GROWTH IN 4 DAYS 05/02/17 13:30 Anaerobic Blood Culture - Preliminary Resulted Blood Peripheral NO GROWTH IN 4 DAYS (Edna Nicole) Result Diagram: 05/06/17 0600 05/06/17 0918 Imaging Last Impressions Chest X-Ray 05/05/17 0000 Signed Impressions: Service Date/Time: April 03:59 - CONCLUSION: Prominent bibasilar infiltrates. Tubes and catheters are all in good position Bertin White MD Head CT 05/04/17 0600 Signed Impressions: Service Date/Time: Thursday, May 04, 2017 04:34 - CONCLUSION: Continued evolution of the large right MCA stroke with significant herniation of soft tissue out the craniotomy defect. Continued significant mass effect and evolving areas of small hemorrhage. The left lateral ventricle may be slightly more decompressed today than on the fifth Bertin White MD Neck CTA 04/26/17 1316 Signed Impressions: Service Date/Time: Wednesday, April 26, 2017 13:39 - CONCLUSION: 1. Standard 3 vessel arch anatomy. 2. Widely patent carotid arteries. 3. Dominant left vertebral artery. Vertebral arteries are patent bilaterally. 4. 5 mm right thyroid nodule. This can be further evaluated with ultrasound on an outpatient basis. Cyrus Orozco MD Head CTA 04/26/17 1316 Signed Impressions: Service Date/Time: Wednesday, April 26, 2017 13:39 - CONCLUSION: 1. Occlusion of the right M1 segment. Grossly intact mendoza-white matter differentiation with gross ASPECT score of 10/10. 2. Incidental finding of 5 mm right thyroid nodule. This can be further evaluated with ultrasound on an outpatient basis. Cyrus Orozco MD Cerebral Arteriogram 04/26/17 0000 Signed Impressions: Service Date/Time: Wednesday, April 26, 2017 14:57 - CONCLUSION: 1. Proximal right M1 occlusion consistent with findings on CT exam. 2. Numerous mechanical thrombectomy attempts due to challenging thrombus extraction and rethrombosis following thrombectomy. In total, ten separate thrombectomy attempts were performed yielding TICI 2b recanalization. Cyrus Orozco MD Brain MRI 04/26/17 0000 Signed Impressions: Service Date/Time: Thursday, April 27, 2017 03:02 - CONCLUSION: Evolving right hemispheric stroke with prominent edema Juancho Jarvis MD (Edna Nicole) Assessment and Plan Problem List: (1) FADUMO (acute kidney injury) Plan: In a pt with normal renal function at baseline renal function has stabilized overnight FADUMO likely due to hypotension and decreased renal perfusion, may have progressed to ATN her urine output had dropped but has responded to diuretics continue diuresis, cautiously follow electrolytes daily renal panel (2) CVA (cerebral vascular accident) Plan: neurosurgery following s/p crani unsure what penitentiary prognosis is permissive hypernatremia (3) Fluid overload Plan: cautious diuresis, on Bumex 2 BID continue and monitor response avoid IVF (Edna Nicole) Problem List: (1) FADUMO (acute kidney injury) Plan: In a pt with normal renal function at baseline renal function has stabilized overnight FADUMO likely due to hypotension and decreased renal perfusion, may have progressed to ATN her urine output had dropped but has responded to diuretics continue diuresis, cautiously follow electrolytes daily renal panel (2) CVA (cerebral vascular accident) Plan: neurosurgery following s/p crani 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 continue and monitor response avoid IVF Assessment and Plan patient was seen and examined. FADUMO due to ATN most likely. Continue diuresis. Prognosis is guarded to poor. (Rohit Bains MD) Problem Qualifiers (1) CVA (cerebral vascular accident): Qualified Code: I63.9 - Cerebrovascular accident (CVA), unspecified mechanism Edna Nicole [facility] May 06, 2017 11:17 Rohit Bains MD May 06, 2017 17:31
[2017-05-06] MEDS ORDERED: POTASSIUM CHLOR 40 MEQ PREMIX 100 ML IV ONE (11:30)
--- NOTE | 2017-05-06 13:09 | HHI.NSPN ---
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 Her MRI showed midline shift and was taken for emergent right decompressive craniectomy 04/27/17 with placement of ICP monitor. 04/28: pt seen this am during rounds: ICPs became elevated last evening and early this morning in the mid 20's. pt started on Versed drip with bolus of 23%. On Mannitol and 3% NS. ICPs now 11-14. Critical care aware will be initiating code cool. Unstable for repeat CT Head this am. 04/29: intubated and well sedated, hypothermic therapy. ICPs improved and stable overnight. 04/30: ICPs in the high teens. On max sedation. Elevated serums os and sodium levels. Increasing vent rate to decrease pCO2. Started rewarming. 05/01: slowly being rewarmed. ICPs high teens but stable. remains well sedated 05/02: ICPs better today in the mid teens. Well sedated. Febrile. 05/03: ICPs 11-17 overnight, currently 12. Versed off, and off hypothermic tx. 05/04: stable ICPs overnight, no changes to neuro check 05/05: sedation off since 1529 yesterday. No eye opening, no spontaneous movements. 05/06: positive for pneumonia, poor renal function. no changes to neuro checks. ( Sakina Israel) Labs, Micro, & Vital Signs Results Date Time Temp Pulse Resp B/P Pulse Ox O2 Delivery O2 Flow Rate FiO2 05/06/17 12:46 96 60 05/06/17 12:00 98.4 71 22 144/71 94 113/65 05/06/17 12:00 60 05/06/17 12:00 73 05/06/17 10:00 73 05/06/17 08:20 93 60 05/06/17 08:00 73 05/06/17 08:00 60 05/06/17 08:00 97.2 73 22 156/79 95 132/82 05/06/17 06:12 93 60 05/06/17 06:00 63 157/85 144/75 05/06/17 06:00 64 05/06/17 04:33 98 90 05/06/17 04:00 66 05/06/17 04:00 96.8 66 22 144/75 96 139/78 05/06/17 04:00 90 05/06/17 02:00 94 05/06/17 01:29 97 90 05/06/17 00:00 90 05/06/17 00:00 61 05/06/17 00:00 98.6 61 22 145/89 96 05/05/17 22:00 60 05/05/17 21:34 95 90 05/05/17 20:00 98.1 61 22 135/75 96 05/05/17 20:00 61 05/05/17 20:00 90 05/05/17 18:00 56 05/05/17 18:00 125/68 127/74 Arterial Line 05/05/17 17:01 95 100 05/05/17 17:00 100 05/05/17 16:30 100 05/05/17 16:00 56 05/05/17 16:00 80 05/05/17 16:00 97.2 56 22 119/65 93 105/69 05/05/17 14:00 60 05/05/17 13:55 94 80 05/06/17 07:00 Intake Total 1495 ml Output Total 8550 ml Balance -7055 ml Constitutional Vital Signs Date Time Temp Pulse Resp B/P Pulse Ox O2 Delivery O2 Flow Rate FiO2 05/06/17 12:46 96 60 05/06/17 12:00 98.4 71 22 144/71 94 113/65 05/06/17 12:00 60 05/06/17 12:00 73 05/06/17 10:00 73 05/06/17 08:20 93 60 05/06/17 08:00 73 05/06/17 08:00 60 05/06/17 08:00 97.2 73 22 156/79 95 132/82 05/06/17 06:12 93 60 05/06/17 06:00 63 157/85 144/75 05/06/17 06:00 64 05/06/17 04:33 98 90 05/06/17 04:00 66 05/06/17 04:00 96.8 66 22 144/75 96 139/78 05/06/17 04:00 90 05/06/17 02:00 94 05/06/17 01:29 97 90 05/06/17 00:00 90 05/06/17 00:00 61 05/06/17 00:00 98.6 61 22 145/89 96 05/05/17 22:00 60 05/05/17 21:34 95 90 05/05/17 20:00 98.1 61 22 135/75 96 05/05/17 20:00 61 05/05/17 20:00 90 05/05/17 18:00 56 05/05/17 18:00 125/68 127/74 Arterial Line 05/05/17 17:01 95 100 05/05/17 17:00 100 05/05/17 16:30 100 05/05/17 16:00 56 05/05/17 16:00 80 05/05/17 16:00 97.2 56 22 119/65 93 105/69 05/05/17 14:00 60 05/05/17 13:55 94 80 05/06/17 07:00 Intake Total 1495 ml Output Total 8550 ml Balance -7055 ml (Sakina Israel) Review of Systems/Exam Exam Ms. Toledo is intubated, no IV sedatives. She does not eye opening. No spontaneous movements. Right flap remains full, soft to palpate. Surgical wound healing well. clean and dry. Cranial Nerves: Left pupil 4, right pupil 6, b/l nonreactive. mild right lateral disconjugate. Motor: No response, very well sedated Generalized edema to extremities Bilateral plantar response silent. Absent corneals b/l. Nursing reports positive cough when suctioned. (Sakina Israel) Medications Current Medications Current Medications Medications (Trade) Dose Ordered Sig/Elida Route PRN Reason Start Time Stop Time Status Last Admin Dose Admin Dextrose (D50w (Vial) Inj) 25 ml UNSCH PRN IV PUSH HYPOGLYCEMIA-SEE COMMENTS 04/26/17 14:15 05/03/17 06:49 Pantoprazole Sodium (Protonix Inj) 40 mg DAILY IV 04/27/17 09:00 05/06/17 08:54 Ondansetron HCl (Zofran Inj) 4 mg Q6H PRN IV NAUSEA OR VOMITING 04/26/17 14:15 Miscellaneous Information 1 Q361D XX 04/26/17 14:15 Chlorhexidine Gluconate (Chlorhexidine 2% Cloth) Taper DAILY@04 TOP 04/27/17 04:00 04/23/18 03:59 04/30/17 04:00 Chlorhexidine Gluconate (Chlorhexidine 2% Cloth) 3 pack UNSCH PRN TOP HYGIENIC CARE 04/26/17 14:15 Senna/Docusate Sodium (Avelina-Colace) 1 tab BID PO 04/26/17 21:00 05/06/17 08:54 Labetalol HCl (Trandate Inj) 20 mg Q15M PRN IV PUSH sbp > 160 04/26/17 15:30 Hydralazine HCl 10 mg 10 mg Q30M PRN IV PUSH sbp > 160 04/26/17 15:30 Levetriacetam/ Sodium Chloride (Keppra Inj/NS Inj) 105 ml @ 400 mls/hr Q12H IV 04/27/17 21:00 05/06/17 08:55 Bisacodyl (Dulcolax Supp) 10 mg DAILY PRN RECTAL CONSTIPATION 04/27/17 10:30 05/01/17 08:29 Docusate Sodium (Colace) 100 mg BID PO 04/27/17 21:00 05/05/17 22:17 Calcium Gluconate 1 gm 1 gm UNSCH PRN IV SEE LABEL COMMENTS 04/27/17 10:30 04/30/17 19:04 Potassium Chloride 100 ml @ 50 mls/hr UNSCH PRN IV POTASSIUM LESS THAN 4 04/27/17 10:30 Magnesium Sulfate/ Sodium Chloride (Magnesium Sulfate Inj/NS Inj) 108 ml @ 108 mls/hr UNSCH PRN IV MAGNESIUM LESS THAN 2 04/27/17 10:30 05/01/17 17:56 Morphine Sulfate (Morphine Inj) 2 mg Q2H PRN IV PUSH PAIN SCALE 1 TO 6 04/27/17 10:30 Morphine Sulfate (Morphine Inj) 4 mg Q2H PRN IV PUSH PAIN SCALE 7 TO 10 04/27/17 10:30 05/02/17 05:29 Chlorhexidine Gluconate (Peridex 0.12% Liq) 15 ml BID@08,20 MT 04/27/17 20:00 05/06/17 08:00 Artificial Tears (Lacrilube Opht Oint) APPLY UNDER BOTH EYELIDS BID EACH EYE 04/28/17 21:00 05/06/17 08:55 Lorazepam 1 mg 1 mg Q1H PRN IV SEIZURES 04/28/17 11:15 Miscellaneous Information ml @ 0 mls/hr UNSCH IV 04/28/17 11:15 Sodium Chloride (NS Flush) 2 ml UNSCH PRN IV FLUSH SEE LABEL COMMENTS 04/28/17 11:15 05/02/17 08:14 Sodium Chloride (NS Flush) 2 ml UNSCH PRN IV FLUSH IV FLUSH 04/28/17 11:15 Artificial Tears 1 applic 1 applic Q4H PRN EACH EYE SEE LABEL COMMENTS 04/28/17 11:15 05/01/17 19:49 Phenylephrine HCl/ Sodium Chloride (Neosynephrine Inj/NS 500 ml Inj) 500 ml @ 0 mls/hr TITRATE IV 05/01/17 15:00 05/06/17 05:55 Acetaminophen (Ofirmev Inj) 1,000 mg Q6H PRN IV temp > 37 05/02/17 09:45 Aspirin (Aspirin) 325 mg DAILY PO 05/03/17 09:00 05/06/17 08:54 Hydrocortisone Sodium Succinate 50 mg 50 mg Q6HR IV PUSH 05/03/17 12:00 05/06/17 11:10 Sodium Chloride 154 meq/Dextrose 1,000 ml @ 30 mls/hr Q24H IV 05/04/17 17:00 05/05/17 22:22 Bumetanide 100 ml @ 8 mls/hr CONTINUOUS IV 05/05/17 17:00 05/05/17 16:48 Piperacillin Sod/ Tazobactam Sod (Zosyn 3.375 Gm Premix) 50 ml @ 100 mls/hr Q6H IV 05/05/17 16:00 05/06/17 08:56 Metoclopramide HCl 5 mg 5 mg Q8H IV PUSH 05/06/17 00:00 05/06/17 08:00 Potassium Chloride (KCl 40 Meq Premix Inj) 100 ml @ 25 mls/hr ONCE ONCE IV 05/06/17 11:30 05/06/17 15:29 05/06/17 11:23 (Sakina Israel) Medical Decision Making MDM Remarks 42 year old female with large right hemispheric CVA with mass effect and midline shift, s/p right decompressive craniectomy with placement of ICP monitor 04/27/17, ICP monitor dc'ed 05/04/17 s/p hypothermic therapy (Sakina Israel) Plan Plan Remarks critical care management cont neuro checks follow up neurological examination Dr. Jac Freeman (Sakina Israel) Attending Statement The exam, history, and the medical decision-making described in the above note were completed with the assistance of the mid-level provider. I reviewed and agree with the findings presented. I attest that I had a [id number] encounter with the patient on the same day, and personally performed and documented my assessment and findings in the medical record. (Garry Nathan MD) Sakina Israel May 06, 2017 13:09 Garry Nathan MD May 08, 2017 19:28
[2017-05-06 14:53] LABS: BICARBONATE 28.4 MEQ/L (21.0-32.0); MAGNESIUM 2.4 MG/DL (1.5-2.5); POTASSIUM 3.4 MEQ/L (3.5-5.1)
[2017-05-06] MEDS: BUMETANIDE INJ 100 ML IV SCH (15:17)
[2017-05-06] MEDS: DEXTROSE 10%-NS 1000 ML IV SCH ×2 (17:00)
[2017-05-06] MEDS: ACETAMINOPHEN 1000 MG/100 ML VIAL IV PRN (18:05)
[2017-05-06 18:48] LABS: BICARBONATE 26.9 MEQ/L (21.0-32.0); MAGNESIUM 2.5 MG/DL (1.5-2.5); POTASSIUM 3.1 MEQ/L (3.5-5.1)
[2017-05-06] MEDS: hydrALAZINE HCL 20 MG/ML VIAL IV PUSH PRN (20:33)
[2017-05-06] MEDS: RESP: ALBUTEROL 2.5 MG/IPRATROPIUM 0.5 MG NEB (PRN) INH ×2 (21:47→23:47)
[2017-05-07] VITALS (20 sets, daily range): BP systolic 113–168; BP diastolic 53–88; PULSE 61–109; RESP 23–28; TEMP 98.6–99.2; O2SAT 92–100
[2017-05-07] MEDS: PIPERACIL-TAZO 3.375 GM PREMIX 50 ML IV SCH ×5 (00:09→20:32)
[2017-05-07] MEDS: METOCLOPRAMIDE HCL 10 MG/2 ML VIAL IV PUSH SCH ×4 (00:09→23:01)
[2017-05-07] MEDS: HYDROCORTISONE SOD SUCCINATE 100 MG VIAL IV PUSH SCH ×5 (00:09→23:02)
[2017-05-07 01:26] LABS: BICARBONATE 29.3 MEQ/L (21.0-32.0); MAGNESIUM 2.6 MG/DL (1.5-2.5); POTASSIUM 3.1 MEQ/L (3.5-5.1)
[2017-05-07] MEDS: INSULIN NovoLIN REGULAR SUPPLEMENTAL SCALE SQ SCH ×5 (03:00→20:58)
[2017-05-07] MEDS: CHLORHEXIDINE GLUCONATE 2 % 1 PACK (2 CLOTHS) TOP SCH (04:00)
[2017-05-07] MEDS: RESP: ALBUTEROL 2.5 MG/IPRATROPIUM 0.5 MG NEB (PRN) INH ×5 (04:40→20:19)
[2017-05-07 05:32] LABS: HEMATOCRIT 23.4 % (35.0-46.0); MEAN CELL VOLUME 90.1 FL (80.0-100.0); MEAN CORPUSCULAR HEMOGLOBIN 29.8 PG (27.0-34.0); MEAN CORPUSCULAR HGB CONC 33.1 % (32.0-36.0); PLATELET COUNT 101 TH/MM3 (150-450); RED CELL DISTRIBUTION WIDTH 14.8 % (11.6-17.2); REVIEW FLAG FINAL; WHITE BLOOD COUNT 16.6 TH/MM3 (4.0-11.0)
[2017-05-07 05:41] LABS: BLOOD GAS BASE EXCESS 5.9 mmol/L (-2-2); BLOOD GAS CARBOXYHEMOGLOBIN 1.1 % (0-4); BLOOD GAS HCO3 29 mmol/L (22-26); BLOOD GAS METHEMOGLOBIN 1.2 % (0-2); BLOOD GAS O2 HGB SATURATION 90 % (90-100); BLOOD GAS OXYGEN CONTENT 10.1 Vol % (12.0-20.0); BLOOD GAS PCO2 38 mmHg (38-42); BLOOD GAS PO2 66 mmHg (61-120); BLOOD GAS TOTAL HGB 7.9 G/DL (12.0-16.0); CRITICAL VALUE NO; OXYGEN DEVICE VENTILATOR; TEMP CORR TO 98.6
[2017-05-07 05:42] LABS: DRAW SITE ART LINE; FIO2 60 %; STAT NO; VENT SETTINGS PRVC/AC
[2017-05-07] MEDS: AMANTADINE HCL SOLN 100 MG/10 ML UDC PO SCH ×2 (05:43→11:55)
[2017-05-07 06:23] LABS: BICARBONATE 31.9 MEQ/L (21.0-32.0); MAGNESIUM 2.8 MG/DL (1.5-2.5); POTASSIUM 3.2 MEQ/L (3.5-5.1)
[2017-05-07] MEDS: CHLORHEXIDINE 0.12% (ORAL KIT) 15 ML CUP MT SCH ×2 (08:00→20:32)
[2017-05-07] MEDS: levETIRAcetam INJ 500 MG in SODIUM CHLORIDE 0.9% INJ 100 ML IV SCH ×2 (08:41→20:32)
[2017-05-07] MEDS: PANTOPRAZOLE SODIUM 40 MG VIAL IV SCH (08:41)
[2017-05-07] MEDS: DOCUSATE SODIUM 50 MG/SENNA 8.6 MG TAB PO SCH ×2 (08:42→20:33)
[2017-05-07] MEDS: ASPIRIN 325 MG TAB PO SCH (08:42)
[2017-05-07] MEDS: POTASSIUM CHLOR 40 MEQ PREMIX 100 ML IV SCH ×5 (08:42→20:34)
[2017-05-07] MEDS: ARTIFICIAL TEARS OPTH OINT 3.5 APPLIC/3.5 GM TUBO EACH EYE SCH ×2 (08:43→20:32)
[2017-05-07] MEDS: DOCUSATE SODIUM 100 MG CAP PO SCH ×2 (09:00→20:32)
--- NOTE | 2017-05-07 09:32 | HHI.NSPN ---
History Chief Complaint: right hemisphere CVA status post right decompressive craniectomy Interval History 42 y/o male suffered ischemic CVA, s/p tPA. Her MRI showed midline shift and was taken for emergent right decompressive craniectomy 04/27/17 with placement of ICP monitor. 04/28: pt seen this am during rounds: ICPs became elevated last evening and early this morning in the mid 20's. pt started on Versed drip with bolus of 23%. On Mannitol and 3% NS. ICPs now 11-14. Critical care aware will be initiating code cool. Unstable for repeat CT Head this am. 04/29: intubated and well sedated, hypothermic therapy. ICPs improved and stable overnight. 04/30: ICPs in the high teens. On max sedation. Elevated serums os and sodium levels. Increasing vent rate to decrease pCO2. Started rewarming. 05/01: slowly being rewarmed. ICPs high teens but stable. remains well sedated 05/02: ICPs better today in the mid teens. Well sedated. Febrile. 05/03: ICPs 11-17 overnight, currently 12. Versed off, and off hypothermic tx. 05/04: stable ICPs overnight, no changes to neuro check 05/05: sedation off since 1530 yesterday. No eye opening, no spontaneous movements. 05/06: positive for pneumonia, poor renal function. no changes to neuro checks. 05/07: Patient opening eyes not following commands. Right pupil 4 mm nonreactive left pupil 3 mm nonreactive. Patient is not on any sedative drips. System Review Comments Not able to obtain given clinical condition. Exam Results Vital Signs Date Time Temp Pulse Resp B/P Pulse Ox O2 Delivery O2 Flow Rate FiO2 05/07/17 06:00 87 161/68 124/83 05/07/17 04:41 92 60 05/07/17 04:00 98.8 25 Intake and Output 05/06/17 05/06/17 05/07/17 08:00 16:00 00:00 Intake Total 1432 ml 773 ml Output Total 2900 ml 3500 ml 4000 ml Balance -2900 ml -2068 ml -3227 ml Physical Examination Resp: CTA bilaterally. Intubated. PRPC. Rate 22 PEEP 10 FiO2 60% Heart: NSR no murmrus Abd: Soft positive bs Skin: Incision clean and dry. No signs of infection Muscle: Not following for muscle testing. Reportedly patient withdraws right side to pain without withdrawal from left side. Neuro: Pt off sedative drips. Not opening eyes. Right pupil 4 mm nonreactive left pupil 3 mm nonreactive. Not following commands. Lab, Micro, Other Results Last Impressions Chest X-Ray 05/05/17 0000 Signed Impressions: Service Date/Time: April 03:59 - CONCLUSION: Prominent bibasilar infiltrates. Tubes and catheters are all in good position Bertin White MD Head CT 05/04/17 0600 Signed Impressions: Service Date/Time: Thursday, May 04, 2017 04:34 - CONCLUSION: Continued evolution of the large right MCA stroke with significant herniation of soft tissue out the craniotomy defect. Continued significant mass effect and evolving areas of small hemorrhage. The left lateral ventricle may be slightly more decompressed today than on the fifth Bertin White MD Neck CTA 04/26/17 1316 Signed Impressions: Service Date/Time: Wednesday, April 26, 2017 13:39 - CONCLUSION: 1. Standard 3 vessel arch anatomy. 2. Widely patent carotid arteries. 3. Dominant left vertebral artery. Vertebral arteries are patent bilaterally. 4. 5 mm right thyroid nodule. This can be further evaluated with ultrasound on an outpatient basis. Cyrus Orozco MD Head CTA 04/26/17 1316 Signed Impressions: Service Date/Time: Wednesday, April 26, 2017 13:39 - CONCLUSION: 1. Occlusion of the right M1 segment. Grossly intact mendoza-white matter differentiation with gross ASPECT score of 10/10. 2. Incidental finding of 5 mm right thyroid nodule. This can be further evaluated with ultrasound on an outpatient basis. Cyrus Orozco MD Cerebral Arteriogram 04/26/17 0000 Signed Impressions: Service Date/Time: Wednesday, April 26, 2017 14:57 - CONCLUSION: 1. Proximal right M1 occlusion consistent with findings on CT exam. 2. Numerous mechanical thrombectomy attempts due to challenging thrombus extraction and rethrombosis following thrombectomy. In total, ten separate thrombectomy attempts were performed yielding TICI 2b recanalization. Cyrus Orozco MD Brain MRI 04/26/17 0000 Signed Impressions: Service Date/Time: Thursday, April 27, 2017 03:02 - CONCLUSION: Evolving right hemispheric stroke with prominent edema Juancho Jarvis MD Laboratory Tests Test 05/06/17 05/06/17 05/07/17 05/07/17 13:27 18:15 00:30 05:20 Sodium Level 154 MEQ/L 154 MEQ/L 155 MEQ/L 154 MEQ/L Potassium Level 3.4 MEQ/L 3.1 MEQ/L 3.1 MEQ/L 3.2 MEQ/L Chloride Level 118 MEQ/L 117 MEQ/L 115 MEQ/L 114 MEQ/L Carbon Dioxide Level 28.4 MEQ/L 26.9 MEQ/L 29.3 MEQ/L 31.9 MEQ/L Anion Gap 8 MEQ/L 10 MEQ/L 11 MEQ/L 8 MEQ/L Blood Urea Nitrogen 57 MG/DL 59 MG/DL 61 MG/DL 64 MG/DL Creatinine 2.51 MG/DL 2.54 MG/DL 2.46 MG/DL 2.39 MG/DL Estimat Glomerular Filtration 21 ML/MIN 21 ML/MIN 21 ML/MIN 22 ML/MIN Rate Random Glucose 94 MG/DL 100 MG/DL 107 MG/DL 109 MG/DL Calcium Level 8.6 MG/DL 8.2 MG/DL 8.6 MG/DL 8.7 MG/DL Magnesium Level 2.4 MG/DL 2.5 MG/DL 2.6 MG/DL 2.8 MG/DL Random Vancomycin Level 18.1 COMMENT White Blood Count 16.6 TH/MM3 Red Blood Count 2.60 MIL/MM3 Hemoglobin 7.8 GM/DL Hematocrit 23.4 % Mean Corpuscular Volume 90.1 FL Mean Corpuscular Hemoglobin 29.8 PG Mean Corpuscular Hemoglobin 33.1 % Concent Red Cell Distribution Width 14.8 % Platelet Count 101 TH/MM3 Mean Platelet Volume 10.3 FL Phosphorus Level 4.5 MG/DL Test 05/07/17 05:27 Blood Gas Puncture Site ART LINE Blood Gas Patient Temperature 98.6 Blood Gas HCO3 29 mmol/L Blood Gas Base Excess 5.9 mmol/L Blood Gas Oxygen Saturation 90 % Arterial Blood pH 7.50 Arterial Blood Partial 38 mmHg Pressure CO2 Arterial Blood Partial 66 mmHg Pressure O2 Arterial Blood Oxygen Content 10.1 Vol % Arterial Blood 1.1 % Carboxyhemoglobin Arterial Blood Methemoglobin 1.2 % Blood Gas Hemoglobin 7.9 G/DL Oxygen Delivery Device VENTILATOR Blood Gas Ventilator Setting PRVC/AC Blood Gas Inspired Oxygen 60 % 05/06/17 05/06/17 05/07/17 15:00 23:00 07:00 Intake Total 1432 ml 773 ml 630 ml Output Total 3500 ml 4000 ml 4200 ml Balance -2068 ml -3227 ml -3570 ml IV Total 1332 ml 653 ml 510 ml Albumin 100 ml Other 120 ml 120 ml Output Urine Total 3300 ml 3900 ml 4000 ml Stool Total 0 ml 100 ml 100 ml Gastric Drainage Total 200 ml 100 ml Medical Decision Making Impression and Plan A: 42 year old female with large right hemispheric CVA with mass effect and midline shift, s/p right decompressive craniectomy with placement of ICP monitor 04/27/17, ICP monitor dc'ed 05/04/17 s/p hypothermic therapy Plan Plan Plan Remarks continue with critical care cont with neuro checks Jarrell Fitzgerald May 07, 2017 09:32
--- NOTE | 2017-05-07 10:50 | RADRPT ---
EXAM DATE/TIME: 05/07/2017 10:19 [facility] COMPARISON: MRI BRAIN W/O CONTRAST, April 27, 2017, 3:02. INDICATIONS : CVA. MEDICAL HISTORY : None. SURGICAL HISTORY : Craniotomy. ENCOUNTER: Initial ACUITY: 1 week PAIN SCORE: 0/10 LOCATION: Cranial TECHNIQUE: Multiplanar, multisequence MRI of the brain was performed without contrast. FINDINGS: There is significantly less edema present. There is evolving hemorrhage involving the deep white mat ter on the right. Structures containing hemorrhage include the head of the caudate globus pallidus. There is hemorrhage across the deep white matter tracts in the anterior limb of the internal capsule . Minimal involvement of the genu and posterior limb are evident. There are no ischemic changes in the right hemisphere. Restricted diffusion in a punctate fashion is seen scattered in the right cerebellar hemisphere. There are no extra-axial fluid collections appreciated. Midline shift has substantially improved. CONCLUSION: Interval improvement. Significant hemorrhagic inversion remains in the deep white matter structures involving head of the caudate globus pallidus, anterior limb of internal capsule and part of the post erior limb. There are no new areas of ischemia. There are scattered areas of lenticular type hemorr jean involving the cortical surface of the left sylvian region that is new from the comparison study. There is no evidence for an evolving infarct in the left hemisphere. Phuc Younger MD FACR on May 07, 2017 at 10:39 Board Certified Radiologist. This report was verified electronically.
[2017-05-07] MEDS ORDERED: BUMETANIDE INJ 100 ML IV SCH (12:00)
[2017-05-07 12:45] LABS: BICARBONATE 29.4 MEQ/L (21.0-32.0); MAGNESIUM 2.8 MG/DL (1.5-2.5)
[2017-05-07 12:50] LABS: POTASSIUM 2.8 MEQ/L (3.5-5.1)
[2017-05-07] MEDS: hydrALAZINE HCL 20 MG/ML VIAL IV PUSH PRN ×3 (12:55→20:32)
--- NOTE | 2017-05-07 13:15 | HHI.NPPN ---
Subjective History of Present Illness 42 y/o female with no PMH. She was at work when she suffered a CVA, received TPA. That was on 04/26. She later went to OR for craniotomy, clot removal. She received a blood transfusion at that time. She became hypotensive and was on multiple pressors Additional Remarks Patient remain intubated and sedated, off pressors, on Bumex infusion. Objective Data Data 05/06/17 05/07/17 19:00 07:00 Intake Total 1432 ml 1403 ml Output Total 3500 ml 8200 ml Balance -2068 ml -6797 ml IV Total 1332 ml 1163 ml Albumin 100 ml Other 240 ml Output Urine Total 3300 ml 7900 ml Stool Total 0 ml 200 ml Gastric Drainage Total 200 ml 100 ml Vital Signs Date Time Temp Pulse Resp B/P Pulse Ox O2 Delivery O2 Flow Rate FiO2 05/07/17 12:59 96 60 05/07/17 12:00 83 05/07/17 10:10 98 100 05/07/17 10:00 83 05/07/17 09:20 94 60 05/07/17 09:20 94 60 05/07/17 08:00 99.1 78 25 127/67 94 136/81 05/07/17 08:00 60 05/07/17 08:00 78 05/07/17 06:00 87 161/68 124/83 05/07/17 06:00 89 05/07/17 04:41 92 60 05/07/17 04:00 84 05/07/17 04:00 98.8 83 25 168/70 94 146/88 05/07/17 04:00 45 05/07/17 02:00 61 05/07/17 01:42 100 60 05/07/17 00:00 45 05/07/17 00:00 71 05/07/17 00:00 98.6 72 23 100 129/74 05/06/17 23:53 70 05/06/17 23:47 97 70 05/06/17 22:00 69 05/06/17 21:53 94 75 05/06/17 21:28 95 45 05/06/17 20:00 98.6 65 24 170/82 94 141/84 05/06/17 20:00 45 05/06/17 20:00 71 05/06/17 18:11 97 45 05/06/17 18:00 73 05/06/17 18:00 63 166/81 129/78 05/06/17 16:00 45 05/06/17 16:00 60 05/06/17 16:00 98.8 75 22 160/79 97 05/06/17 16:00 73 05/06/17 14:00 73 -: 05/07/17 0520 05/07/17 1205 Physical Exam General Appearance Remarks Intubated and sedated. Eyes Eye Exam: Pupils Equal Throat Throat Exam: Oral Mucosa Gautier & Moist Neck Neck Exam: Neck Supple Pulmonary Resp Exam: No Distress, Rhonchi, Decreased Bases Cardiology CV Exam: Regular, Normal Sinus Rhythm Gastrointestinal/Abdomen GI Exam: Soft, Non-Tender, Bowel Sounds Present Extremeties Extremities Exam: Trace Edema Neurologic Neuro Exam: Unresponsive, Sedated Assessment/Plan Assessment Summary: FADUMO/Acute Renal Failure Problem List: (1) FADUMO (acute kidney injury) Plan: In a pt with normal renal function at baseline renal function has stabilized overnight FADUMO likely due to hypotension and decreased renal perfusion, may have progressed to ATN her urine output had dropped but has responded to diuretics continue diuresis, cautiously Creatinine is slightly better. K is low, and Na. is elevated, to replace K. (2) CVA (cerebral vascular accident) Plan: neurosurgery following s/p crani unsure what senior care prognosis is 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 continue and monitor response avoid IVF Problem Qualifiers (1) CVA (cerebral vascular accident): Qualified Code: I63.9 - Cerebrovascular accident (CVA), unspecified mechanism Satnam Torres MD May 07, 2017 13:15
[2017-05-07 15:07] LABS: BLOOD GAS BASE EXCESS 6.9 mmol/L (-2-2); BLOOD GAS HCO3 30 mmol/L (22-26); BLOOD GAS METHEMOGLOBIN 1.3 % (0-2); BLOOD GAS O2 HGB SATURATION 96 % (90-100); BLOOD GAS OXYGEN CONTENT 11.2 Vol % (12.0-20.0); BLOOD GAS PCO2 38 mmHg (38-42); BLOOD GAS PO2 102 mmHg (61-120); BLOOD GAS TOTAL HGB 8.2 G/DL (12.0-16.0); TEMP CORR TO 98.6
[2017-05-07 15:09] LABS: CRITICAL VALUE YES; DRAW SITE ART LINE; FIO2 60 %; OXYGEN DEVICE VENTILATOR
[2017-05-07 15:10] LABS: STAT NO
--- NOTE | 2017-05-07 15:52 | HHI.PR ---
Review/Management Diagnosis right MCA stroke, s/p iv tpa and thrombectomy of right M1 thrombus. Diagnosis/Plan: Subjective Subjective Comments No acute events reported Active Medications Current Medications Medications (Trade) Dose Ordered Sig/Elida Route Start Time Stop Time Status Last Admin (D50w (Vial) Inj) 25 ml UNSCH PRN IV PUSH 04/26/17 14:15 05/03/17 06:49 (Protonix Inj) 40 mg DAILY IV 04/27/17 09:00 05/07/17 08:41 (Zofran Inj) 4 mg Q6H PRN IV 04/26/17 14:15 Miscellaneous Information 1 Q361D XX 04/26/17 14:15 (Chlorhexidine 2% Cloth) Taper DAILY@04 TOP 04/27/17 04:00 04/23/18 03:59 04/30/17 04:00 (Chlorhexidine 2% Cloth) 3 pack UNSCH PRN TOP 04/26/17 14:15 (Avelina-Colace) 1 tab BID PO 04/26/17 21:00 05/07/17 08:42 (Trandate Inj) 20 mg Q15M PRN IV PUSH 04/26/17 15:30 Hydralazine HCl 10 mg 10 mg Q30M PRN IV PUSH 04/26/17 15:30 05/07/17 12:55 (Keppra Inj/NS Inj) 105 ml @ 400 mls/hr Q12H IV 04/27/17 21:00 05/07/17 08:41 (Dulcolax Supp) 10 mg DAILY PRN RECTAL 04/27/17 10:30 05/01/17 08:29 (Colace) 100 mg BID PO 04/27/17 21:00 05/06/17 20:32 Calcium Gluconate 1 gm 1 gm UNSCH PRN IV 04/27/17 10:30 04/30/17 19:04 Potassium Chloride 100 ml @ 50 mls/hr UNSCH PRN IV 04/27/17 10:30 (Magnesium Sulfate Inj/NS Inj) 108 ml @ 108 mls/hr UNSCH PRN IV 04/27/17 10:30 05/01/17 17:56 (Morphine Inj) 2 mg Q2H PRN IV PUSH 04/27/17 10:30 (Morphine Inj) 4 mg Q2H PRN IV PUSH 04/27/17 10:30 6/5/17 05:29 (Peridex 0.12% Liq) 15 ml BID@08,20 MT 04/27/17 20:00 05/07/17 08:00 (Lacrilube Opht Oint) APPLY UNDER BOTH EYELIDS BID EACH EYE 04/28/17 21:00 05/07/17 08:43 Lorazepam 1 mg 1 mg Q1H PRN IV 04/28/17 11:15 Miscellaneous Information ml @ 0 mls/hr UNSCH IV 04/28/17 11:15 (NS Flush) 2 ml UNSCH PRN IV FLUSH 04/28/17 11:15 05/02/17 08:14 (NS Flush) 2 ml UNSCH PRN IV FLUSH 04/28/17 11:15 Artificial Tears 1 applic 1 applic Q4H PRN EACH EYE 04/28/17 11:15 05/01/17 19:49 (Neosynephrine Inj/NS 500 ml Inj) 500 ml @ 0 mls/hr TITRATE IV 05/01/17 15:00 05/06/17 05:55 (Ofirmev Inj) 1,000 mg Q6H PRN IV 05/02/17 09:45 05/06/17 18:05 (Aspirin) 325 mg DAILY PO 05/03/17 09:00 05/07/17 08:42 Hydrocortisone Sodium Succinate 50 mg 50 mg Q6HR IV PUSH 05/03/17 12:00 05/07/17 11:55 Sodium Chloride 154 meq/Dextrose 1,000 ml @ 30 mls/hr Q24H IV 05/04/17 17:00 05/06/17 17:00 (Zosyn 3.375 Gm Premix) 50 ml @ 100 mls/hr Q6H IV 05/05/17 16:00 05/07/17 08:42 (Reglan Inj) 5 mg Q8H IV PUSH 05/06/17 00:00 05/07/17 08:42 (Symmetrel Liq) 200 mg BID@07,12 PO 05/07/17 07:00 05/07/17 11:55 Acetazolamide Sodium 500 mg 500 mg Q8H IV PUSH 05/07/17 06:00 05/07/17 22:01 05/07/17 13:31 (Bumex Inj) 100 ml @ 4 mls/hr CONTINUOUS IV 05/07/17 12:00 Allergies Allergies Coded Allergies Shellfish (Verified Allergy, Unknown, 04/26/17) Exam I&O / VS 05/06/17 05/06/17 05/07/17 15:00 23:00 07:00 Intake Total 1432 ml 773 ml 630 ml Output Total 3500 ml 4000 ml 4200 ml Balance -2068 ml -3227 ml -3570 ml IV Total 1332 ml 653 ml 510 ml Albumin 100 ml Other 120 ml 120 ml Output Urine Total 3300 ml 3900 ml 4000 ml Stool Total 0 ml 100 ml 100 ml Gastric Drainage Total 200 ml 100 ml Vital Signs Date Time Temp Pulse Resp B/P Pulse Ox O2 Delivery O2 Flow Rate FiO2 05/07/17 14:00 83 05/07/17 12:59 96 60 05/07/17 12:00 83 05/07/17 12:00 60 05/07/17 12:00 99.2 68 24 136/81 97 130/74 05/07/17 10:10 98 100 05/07/17 10:00 83 05/07/17 09:20 94 60 05/07/17 09:20 94 60 05/07/17 08:00 99.1 78 25 127/67 94 136/81 05/07/17 08:00 60 05/07/17 08:00 78 05/07/17 06:00 87 161/68 124/83 05/07/17 06:00 89 05/07/17 04:41 92 60 05/07/17 04:00 84 05/07/17 04:00 98.8 83 25 168/70 94 146/88 05/07/17 04:00 45 05/07/17 02:00 61 05/07/17 01:42 100 60 05/07/17 00:00 45 05/07/17 00:00 71 05/07/17 00:00 98.6 72 23 100 129/74 05/06/17 23:53 70 05/06/17 23:47 97 70 05/06/17 22:00 69 05/06/17 21:53 94 75 05/06/17 21:28 95 45 05/06/17 20:00 98.6 65 24 170/82 94 141/84 05/06/17 20:00 45 05/06/17 20:00 71 05/06/17 18:11 97 45 05/06/17 18:00 73 05/06/17 18:00 63 166/81 129/78 05/06/17 16:00 45 05/06/17 16:00 60 05/06/17 16:00 98.8 75 22 160/79 97 05/06/17 16:00 73 Exam Comments nonresponsive pupils 3 mm right nonreactive, 2 mm left and reactive no spontaneous limb movement and no withdrawal Objective Radiology Results MRI brain--reduced amount of edema. hemorrhage in right cva present and new hamorrhage left temporal lobe Micro and Labs Laboratory Tests Test 05/06/17 05/07/17 05/07/17 05/07/17 18:15 00:30 05:20 05:27 Sodium Level 154 155 154 Potassium Level 3.1 3.1 3.2 Chloride Level 117 115 114 Carbon Dioxide Level 26.9 29.3 31.9 Anion Gap 10 11 8 Blood Urea Nitrogen 59 61 64 Creatinine 2.54 2.46 2.39 Estimat Glomerular Filtration 21 21 22 Rate Random Glucose 100 107 109 Calcium Level 8.2 8.6 8.7 Magnesium Level 2.5 2.6 2.8 Random Vancomycin Level 18.1 White Blood Count 16.6 Red Blood Count 2.60 Hemoglobin 7.8 Hematocrit 23.4 Mean Corpuscular Volume 90.1 Mean Corpuscular Hemoglobin 29.8 Mean Corpuscular Hemoglobin 33.1 Concent Red Cell Distribution Width 14.8 Platelet Count 101 Mean Platelet Volume 10.3 Phosphorus Level 4.5 Blood Gas Puncture Site ART LINE Blood Gas Patient Temperature 98.6 Blood Gas HCO3 29 Blood Gas Base Excess 5.9 Blood Gas Oxygen Saturation 90 Arterial Blood pH 7.50 Arterial Blood Partial 38 Pressure CO2 Arterial Blood Partial 66 Pressure O2 Arterial Blood Oxygen Content 10.1 Arterial Blood 1.1 Carboxyhemoglobin Arterial Blood Methemoglobin 1.2 Blood Gas Hemoglobin 7.9 Oxygen Delivery Device VENTILATOR Blood Gas Ventilator Setting PRVC/AC Blood Gas Inspired Oxygen 60 Test 05/07/17 05/07/17 12:05 14:53 Sodium Level 156 Potassium Level 2.8 Chloride Level 112 Carbon Dioxide Level 29.4 Anion Gap 15 Blood Urea Nitrogen 66 Creatinine 2.30 Estimat Glomerular Filtration 23 Rate Random Glucose 115 Calcium Level 8.9 Magnesium Level 2.8 Blood Gas Puncture Site ART LINE Blood Gas Patient Temperature 98.6 Blood Gas HCO3 30 Blood Gas Base Excess 6.9 Blood Gas Oxygen Saturation 96 Arterial Blood pH 7.52 Arterial Blood Partial 38 Pressure CO2 Arterial Blood Partial 102 Pressure O2 Arterial Blood Oxygen Content 11.2 Arterial Blood 1.0 Carboxyhemoglobin Arterial Blood Methemoglobin 1.3 Blood Gas Hemoglobin 8.2 Oxygen Delivery Device VENTILATOR Blood Gas Ventilator Setting SEE NOTE Blood Gas Inspired Oxygen 60 Santana Gomez PhD, MD May 07, 2017 15:52
[2017-05-07] MEDS: ACETAMINOPHEN 1000 MG/100 ML VIAL IV PRN ×2 (16:10→21:32)
[2017-05-07] MEDS: DEXTROSE 10%-NS 1000 ML IV SCH ×2 (16:15)
--- NOTE | 2017-05-07 16:17 | HHI.CCPN ---
Subjective Remarks/Hospital Course This is a 42yF with unremarkable past medical history who presents to the [facility] emergency department with new-onset left-sided weakness and slurred speech. She is an employee of [employer] who had a witnessed onset of her symptoms at 12:45pm. In the [facility] ED she was immediately taken for non-contrasted head CT which was negative for acute hemorrhage. She was given iv tpa which was instituted 36 minutes after arrival, per my conversation with the yoga coordinator. She was then emergently transferred to [facility]. CT angiography demonstrated acute right m1 cut-off. She was taken by [facility] and arrived directly to the IR suite, where I met and evaluated the patient. Due to the acute nature of her illness and her dysarthria, a complete history is not obtainable. She does endorse right-sided headache, although denied any chest pain, shortness of breath. 04/27: Back from OR after right craniectomy for decompression s/p left MCA CVA. Heavily sedated. Some new history from a co-worker indicates that patient started taking oral contraceptive 2 months ago. 04/28: Continued problems with cerebral edema as expected. Push osmolality a little higher and restrict fluid. Tolerate pH mildly acidotic to avoid cerebral vascular constriction. 04/29: Osmolality in good range. ICP controlled. Hypothermia to 34 degrees. Raise to 35 slowly as long as ICP is acceptable. Unable to start tube feeds yet as gut motility will be poor at cooler temperature. 04/30: ICP control good. Osmolality acceptable. Temp to 35 degrees. 05/01: Raise temp to 36 degrees and hold. CXR with light basilar infiltrates, no leukocytosis. Heavily sedated for brain protection/ICP control. Persistent blood sugars 60s range - will start D5/NS at 30/hr. 05/02: vasopressor requirement uptrending. wbc uptrending as well. repeat head ct with persistent edema, although ICPs slightly improved. 05/03: slight improvement in vasopressors and lactate with ivf resuscitation. however, still persists on high doses of multiple vasopressors. ICPs stable. off versed. sputum growing chowdhury-sensitive e-coli. I performed critical care bedside echo this morning which demonstrated preserved biventricular function, no significant valvular lesions, ivc with 20% variability and measures at 1.6cm. by echo appears clinically euvolemic. 05/04: vasopressors significantly improved throughout the night. but remains on two vasopressors. this morning, cvp climbing. weaning off sedation. bolt removed. icp's controlled. still poor neurologic exam, despite weaning off sedation. (delayed note entry. seen and evaluated at 06:20am). 05/05: patient seen and evaluated at 06:15am. almost off vasopressors. however, renal function significantly worse. patient is non-oliguric, but failing to diurese fast enough for rising filling pressures. FIO2 up to 100% this morning. CXR with evidence of volume overload. bedside ultrasound of the lungs demonstrate trace pleural effusions with densely consolidated lung oquendo. echo with dilated ivc without respiratory variation, RVSP ~50 mmHg based on trace TR jet. preserved LV and RV function. neuro exam remains poor. 05/06: diuresed > 8L uop overnight. fio2 down to 60%. Cr stabilized. Nephrology consulted. neuro exam still poor. 05/07: continues to diurese, >7L/24h. fio2 still at 50%. Cr stable. neuro exam: starting to withdraw x 4. MRI today without evidence of new infarction on the left. Objective Vital Signs Date Time Temp Pulse Resp B/P Pulse Ox O2 Delivery O2 Flow Rate FiO2 05/07/17 14:00 83 05/07/17 12:59 96 60 05/07/17 12:00 99.2 24 136/81 130/74 Intake and Output 05/06/17 05/06/17 05/07/17 08:00 16:00 00:00 Intake Total 1432 ml 773 ml Output Total 2900 ml 3500 ml 4000 ml Balance -2900 ml -2068 ml -3227 ml Result Diagram: 05/07/17 0520 05/07/17 1205 Other Results Laboratory Tests Test 05/07/17 05/07/17 05:27 14:53 Blood Gas Puncture Site ART LINE ART LINE Blood Gas Patient Temperature 98.6 98.6 Blood Gas HCO3 29 mmol/L 30 mmol/L (22-26) (22-26) Blood Gas Base Excess 5.9 mmol/L 6.9 mmol/L (-2-2) (-2-2) Blood Gas Oxygen Saturation 90 % (90-100) 96 % (90-100) Arterial Blood pH 7.50 7.52 (7.380-7.420) (7.380-7.420) Arterial Blood Partial 38 mmHg (38-42) 38 mmHg (38-42) Pressure CO2 Arterial Blood Partial 66 mmHg 102 mmHg Pressure O2 (61-120) (61-120) Arterial Blood Oxygen Content 10.1 Vol % 11.2 Vol % (12.0-20.0) (12.0-20.0) Arterial Blood 1.1 % (0-4) 1.0 % (0-4) Carboxyhemoglobin Arterial Blood Methemoglobin 1.2 % (0-2) 1.3 % (0-2) Blood Gas Hemoglobin 7.9 G/DL 8.2 G/DL (12.0-16.0) (12.0-16.0) Oxygen Delivery Device VENTILATOR VENTILATOR Blood Gas Ventilator Setting PRVC/AC SEE NOTE Blood Gas Inspired Oxygen 60 % 60 % Imaging Last 24 hours Impressions Chest X-Ray 05/05/17 0000 Signed Impressions: Service Date/Time: April 03:59 - CONCLUSION: Prominent bibasilar infiltrates. Tubes and catheters are all in good position Bertin White MD Objective Remarks gen: middle-aged female, lying in bed, unresponsive. heent: mild facial edema resolving. neck: trachea midline. orally intubated. chest: coarse crackles at the bases, good air movement equal chest rise. PCO2 control good. fio2 60%. peep 12. cv: normal rate, regular rhythm. sinus by tele. + JVD. no m,r abd: soft, nontender, nondistended. no guarding. extr: no peripheral edema. distal pulses palpable, well perfused. neuro: RASS -4;. pupils are now 3mm, equal and reactive. withdraws x 4 weakly. weak cough. A/P Assessment and Plan Assessment: 42yF with acute right M1 MCA CVA now s/p systemic TPA and attempted interventional mechanical thrombectomy. Her course is complicated by malignant cerebral edema requiring decompressive craniectomy and therapeutic hypothermia. She remains with cerebral edema, very critically ill, on vasopressors and now with worsening acute kidney injury and severe volume overload. First evidence of slight neuro improvement, although overall neuro exam is poor. Continue aggressive forced diuresis in an attempt to improve oxygenation. She is very critically ill at this time and off pathway. without current maximal level of support, she would . Plan by Systems: Neuro: Acute right M1 MCA CVA s/p systemic TPA and endovascular thrombectomy Dysarthria Left-sided hemiparesis Left-sided facial droop Malignant Cerebral Edema s/p Decompressive Craniectomy Elevated ICP -- q1h neuro checks -- wean sedation to obtain neuro exam. -- continue to hold all sedation. -- repeat EEG 05/04: generalized slowing. ?ictal focus over right hemisphere. -- repeat head CT 05/02, 05/04: stable edema, slightly enlarged left lateral ventricle, evolving right hemispheric cva -- 3% nacl currently on hold. goal Na 145-155. -- serial bmps -- SBP goal 110 - 160. -- keppra for seizure ppx Respiratory: Acute hypoxic and Hypercarbic respiratory failure -- no SBT today given persistent cerebral edema and high vent requirements. -- wean fio2 for goal spo2 > 90% -- etco2 monitoring with q12h abg. goal pco2 35 - 40. -- vent bundle -- elevated HOB Cardiovascular Septic Shock- resolved Adrenal Insufficiency Acute intravascular volume overload -- goal sbp 110 - 160 -- off vasopressors. -- pulse contour analysis and cvp monitoring. Renal: Acute Kidney Injury -- likely multifactorial at this point including ATN. currently hypervolemic. -- continue ribera with strict i/o's -- trend Cr on daily bmp -- continue aggressive forced diuresis: Bumex drip 2mg/hr FEN/GI Acute protein calorie malnutrition- mild Hypernatremia Lactic Acidosis- resolved. Anion-gap metabolic acidosis- resolved. Metabolic Alkalosis secondary to intravascular contraction -- TF, nepro. -- ICU electrolyte protocol -- daily bmp, mg, phos. serial electrolytes while on bumex drip. -- diamox 500mg iv q8h. Heme/ID: Anemia secondary to acute blood loss Leukocytosis E. Coli Pneumonia, likely secondary to aspiration at time of stroke -- Zosyn 2.5 gm iv q8h, renally dosed, pulmonary source. -- sputum culture 05/01: e.coli, chowdhury sensitive -- urine, blood cultures 05/02 NGTD. -- daily cbc Endo: Hypoglycemia Adrenal Insufficiency -- d10NS for dextrose source to minimize fluids. -- frequent glucose checks. -- hydrocortisone 50mg iv q6h, continue this while still on vasopressors. Prophy: -- SCDs -- pepcid iv for gi prophylaxis Lines: -- LIJ TLC -- right radial art line 05/05 Overall impression: Large distribution right MCA CVA with shift required decompressive craniectomy 04/27 in an attempt to rescue the dominant hemisphere. She is critically ill with an unstable neurological process and considerable cerebral edema, along with multi organ system dysfunction at this point. This patient remains critically ill with one or more organ systems which are or may become a threat to life. I have spent in excess of 32 minutes discontinuously in the care and management of this patient. This time is exclusive of procedures, and includes, but is not limited to, evaluation of the patient, review of the medical record, discussions with family, consultants, nursing staff, or respiratory therapy, and documentation in the medical record. Remi Freeman MD May 07, 2017 16:17
[2017-05-07 19:16] LABS: BICARBONATE 30.9 MEQ/L (21.0-32.0)
[2017-05-08] VITALS (18 sets, daily range): BP systolic 99–156; BP diastolic 52–68; PULSE 65–94; RESP 22–28; TEMP 97.5–99.3; O2SAT 97–100
[2017-05-08] MEDS: LABETALOL HCL 100 MG/20 ML VIAL IV PUSH PRN ×2 (00:09→06:45)
[2017-05-08] MEDS: INSULIN NovoLIN REGULAR SUPPLEMENTAL SCALE SQ SCH ×5 (03:00→21:00)
[2017-05-08] MEDS: POTASSIUM CHLOR 20 MEQ PREMIX 100 ML IV PRN ×5 (03:20→14:40)
[2017-05-08] MEDS: PIPERACIL-TAZO 3.375 GM PREMIX 50 ML IV SCH ×4 (03:21→21:25)
[2017-05-08] MEDS: ACETAMINOPHEN 1000 MG/100 ML VIAL IV PRN ×2 (03:21→14:37)
[2017-05-08] MEDS: CHLORHEXIDINE GLUCONATE 2 % 1 PACK (2 CLOTHS) TOP SCH (03:22)
[2017-05-08] MEDS: hydrALAZINE HCL 20 MG/ML VIAL IV PUSH PRN ×3 (03:52→14:38)
[2017-05-08] MEDS: DEXTROSE 10%-NS 1000 ML IV SCH ×2 (04:10)
[2017-05-08 05:26] LABS: BLOOD GAS BASE EXCESS 7.2 mmol/L (-2-2); BLOOD GAS CARBOXYHEMOGLOBIN 1.1 % (0-4); BLOOD GAS HCO3 31 mmol/L (22-26); BLOOD GAS METHEMOGLOBIN 1.2 % (0-2); BLOOD GAS O2 HGB SATURATION 95 % (90-100); BLOOD GAS OXYGEN CONTENT 10.9 Vol % (12.0-20.0); BLOOD GAS PCO2 41 mmHg (38-42); BLOOD GAS PO2 100 mmHg (61-120); CRITICAL VALUE NO; DRAW SITE ART LINE; FIO2 45 %; OXYGEN DEVICE VENTILATOR; TEMP CORR TO 98.6; VENT SETTINGS PRVC/AC
[2017-05-08 05:27] LABS: STAT NO
[2017-05-08 05:47] LABS: HEMATOCRIT 23.2 % (35.0-46.0); MEAN CELL VOLUME 92.1 FL (80.0-100.0); MEAN CORPUSCULAR HEMOGLOBIN 30.2 PG (27.0-34.0); MEAN CORPUSCULAR HGB CONC 32.8 % (32.0-36.0); PLATELET COUNT 166 TH/MM3 (150-450); RED BLOOD COUNT 2.52 MIL/MM3 (4.00-5.30); RED CELL DISTRIBUTION WIDTH 15.2 % (11.6-17.2); REVIEW FLAG FINAL; WHITE BLOOD COUNT 20.3 TH/MM3 (4.0-11.0)
[2017-05-08] MEDS: HYDROCORTISONE SOD SUCCINATE 100 MG VIAL IV PUSH SCH ×3 (05:54→21:25)
[2017-05-08] MEDS: AMANTADINE HCL SOLN 100 MG/10 ML UDC PO SCH ×2 (05:55→12:37)
[2017-05-08 06:57] LABS: BICARBONATE 29.9 MEQ/L (21.0-32.0); MAGNESIUM 3.5 MG/DL (1.5-2.5)
[2017-05-08] MEDS: FREE WATER PO SCH ×4 (07:17→23:36)
--- NOTE | 2017-05-08 07:43 | HHI.NSPN ---
History Chief Complaint: right hemisphere CVA status post right decompressive craniectomy Interval History 42 y/o FM suffered ischemic CVA, s/p tPA. Her MRI showed midline shift and was taken for emergent right decompressive craniectomy 04/27/17 with placement of ICP monitor. 04/28: pt seen this am during rounds: ICPs became elevated last evening and early this morning in the mid 20's. pt started on Versed drip with bolus of 23%. On Mannitol and 3% NS. ICPs now 11-14. Critical care aware will be initiating code cool. Unstable for repeat CT Head this am. 04/29: intubated and well sedated, hypothermic therapy. ICPs improved and stable overnight. 04/30: ICPs in the high teens. On max sedation. Elevated serums os and sodium levels. Increasing vent rate to decrease pCO2. Started rewarming. 05/01: slowly being rewarmed. ICPs high teens but stable. remains well sedated 05/02: ICPs better today in the mid teens. Well sedated. Febrile. 05/03: ICPs 11-17 overnight, currently 12. Versed off, and off hypothermic tx. 05/04: stable ICPs overnight, no changes to neuro check 05/05: sedation off since 1530 yesterday. No eye opening, no spontaneous movements. 05/06: positive for pneumonia, poor renal function. no changes to neuro checks. 05/07: Patient not opening eyes not following commands. Right pupil 4 mm nonreactive left pupil 3 mm nonreactive. Patient is not on any sedative drips. 05/08: Patient not opening eyes. She is not on any sedative drips. Right pupil 5 mm nonreactive left pupil 3 mm slight reaction. Not following commands. Patient withdraws extremities to pain. System Review Comments Not able to obtain given clinical condition. Exam Results Vital Signs Date Time Temp Pulse Resp B/P Pulse Ox O2 Delivery O2 Flow Rate FiO2 05/08/17 06:00 85 05/08/17 06:00 156/67 122/65 05/08/17 04:19 99 45 05/08/17 04:00 99.3 28 Intake and Output 05/07/17 05/07/17 05/08/17 08:00 16:00 00:00 Intake Total 630 ml 633 ml 856 ml Output Total 4200 ml 300 ml 3700 ml Balance -3570 ml 333 ml -2844 ml Physical Examination Resp: CTA bilaterally. Intubated. PRVC. A/C Rate 22 PEEP 8 FiO2 40% Heart: NSR Abd: Soft positive bs Skin: Incision clean and dry. No signs of infection Muscle: Not following for muscle testing. Patient withdraws all 4. Withdraws the LUE a little more than the right. Neuro: Pt off sedative drips. Not opening eyes. Right pupil 4 mm nonreactive left pupil 3 mm nonreactive. Not following commands. Lab, Micro, Other Results Last Impressions Brain MRI 05/07/17 0000 Signed Impressions: Service Date/Time: Sunday, May 07, 2017 10:19 - CONCLUSION: Interval improvement. Significant hemorrhagic inversion remains in the deep white matter structures involving head of the caudate globus pallidus, anterior limb of internal capsule and part of the posterior limb. There are no new areas of ischemia. There are scattered areas of lenticular type hemorrhage involving the cortical surface of the left sylvian region that is new from the comparison study. There is no evidence for an evolving infarct in the left hemisphere. Phuc Younger MD FACR Chest X-Ray 05/05/17 0000 Signed Impressions: Service Date/Time: April 03:59 - CONCLUSION: Prominent bibasilar infiltrates. Tubes and catheters are all in good position Bertin White MD Head CT 05/04/17 0600 Signed Impressions: Service Date/Time: Thursday, May 04, 2017 04:34 - CONCLUSION: Continued evolution of the large right MCA stroke with significant herniation of soft tissue out the craniotomy defect. Continued significant mass effect and evolving areas of small hemorrhage. The left lateral ventricle may be slightly more decompressed today than on the fifth Bertin White MD Neck CTA 04/26/17 1316 Signed Impressions: Service Date/Time: Wednesday, April 26, 2017 13:39 - CONCLUSION: 1. Standard 3 vessel arch anatomy. 2. Widely patent carotid arteries. 3. Dominant left vertebral artery. Vertebral arteries are patent bilaterally. 4. 5 mm right thyroid nodule. This can be further evaluated with ultrasound on an outpatient basis. Cyrus Orozco MD Head CTA 04/26/17 1316 Signed Impressions: Service Date/Time: Wednesday, April 26, 2017 13:39 - CONCLUSION: 1. Occlusion of the right M1 segment. Grossly intact mendoza-white matter differentiation with gross ASPECT score of 10/10. 2. Incidental finding of 5 mm right thyroid nodule. This can be further evaluated with ultrasound on an outpatient basis. Cyrus Orozco MD Cerebral Arteriogram 04/26/17 0000 Signed Impressions: Service Date/Time: Wednesday, April 26, 2017 14:57 - CONCLUSION: 1. Proximal right M1 occlusion consistent with findings on CT exam. 2. Numerous mechanical thrombectomy attempts due to challenging thrombus extraction and rethrombosis following thrombectomy. In total, ten separate thrombectomy attempts were performed yielding TICI 2b recanalization. Cyrus Orozco MD Laboratory Tests Test 05/07/17 05/07/17 05/07/17 05/07/17 12:05 14:30 14:53 18:30 Sodium Level 156 MEQ/L 156 MEQ/L Potassium Level 2.8 MEQ/L 3.0 MEQ/L Chloride Level 112 MEQ/L 113 MEQ/L Carbon Dioxide Level 29.4 MEQ/L 30.9 MEQ/L Anion Gap 15 MEQ/L 12 MEQ/L Blood Urea Nitrogen 66 MG/DL 69 MG/DL Creatinine 2.30 MG/DL 2.45 MG/DL Estimat Glomerular Filtration 23 ML/MIN 21 ML/MIN Rate Random Glucose 115 MG/DL 121 MG/DL Calcium Level 8.9 MG/DL 8.1 MG/DL Magnesium Level 2.8 MG/DL 3.0 MG/DL Urine Eosinophils NONE SEEN /HPF Blood Gas Puncture Site ART LINE Blood Gas Patient Temperature 98.6 Blood Gas HCO3 30 mmol/L Blood Gas Base Excess 6.9 mmol/L Blood Gas Oxygen Saturation 96 % Arterial Blood pH 7.52 Arterial Blood Partial 38 mmHg Pressure CO2 Arterial Blood Partial 102 mmHg Pressure O2 Arterial Blood Oxygen Content 11.2 Vol % Arterial Blood 1.0 % Carboxyhemoglobin Arterial Blood Methemoglobin 1.3 % Blood Gas Hemoglobin 8.2 G/DL Oxygen Delivery Device VENTILATOR Blood Gas Ventilator Setting SEE NOTE Blood Gas Inspired Oxygen 60 % Test 05/08/17 05/08/17 05:03 05:16 Blood Gas Puncture Site ART LINE Blood Gas Patient Temperature 98.6 Blood Gas HCO3 31 mmol/L Blood Gas Base Excess 7.2 mmol/L Blood Gas Oxygen Saturation 95 % Arterial Blood pH 7.49 Arterial Blood Partial 41 mmHg Pressure CO2 Arterial Blood Partial 100 mmHg Pressure O2 Arterial Blood Oxygen Content 10.9 Vol % Arterial Blood 1.1 % Carboxyhemoglobin Arterial Blood Methemoglobin 1.2 % Blood Gas Hemoglobin 8.0 G/DL Oxygen Delivery Device VENTILATOR Blood Gas Ventilator Setting PRVC/AC Blood Gas Inspired Oxygen 45 % White Blood Count 20.3 TH/MM3 Red Blood Count 2.52 MIL/MM3 Hemoglobin 7.6 GM/DL Hematocrit 23.2 % Mean Corpuscular Volume 92.1 FL Mean Corpuscular Hemoglobin 30.2 PG Mean Corpuscular Hemoglobin 32.8 % Concent Red Cell Distribution Width 15.2 % Platelet Count 166 TH/MM3 Mean Platelet Volume 10.9 FL Sodium Level 157 MEQ/L Potassium Level 3.0 MEQ/L Chloride Level 115 MEQ/L Carbon Dioxide Level 29.9 MEQ/L Anion Gap 12 MEQ/L Blood Urea Nitrogen 73 MG/DL Creatinine 2.54 MG/DL Estimat Glomerular Filtration 21 ML/MIN Rate Random Glucose 119 MG/DL Calcium Level 8.6 MG/DL Phosphorus Level 4.9 MG/DL Magnesium Level 3.5 MG/DL 05/07/17 05/07/17 05/08/17 15:00 23:00 07:00 Intake Total 633 ml 856 ml 730 ml Output Total 300 ml 3700 ml 2900 ml Balance 333 ml -2844 ml -2170 ml IV Total 513 ml 816 ml 730 ml Other 120 ml 40 ml 0 ml Output Urine Total 200 ml 3400 ml 2600 ml Stool Total 100 ml 200 ml 300 ml Gastric Drainage Total 0 ml 100 ml 0 ml Medical Decision Making Impression and Plan A: 42 year old female with large right hemispheric CVA with mass effect and midline shift, s/p right decompressive craniectomy with placement of ICP monitor 04/27/17, ICP monitor dc'ed 05/04/17 s/p hypothermic therapy Plan Plan Plan Remarks continue with critical care cont with neuro checks Jarrell Fitzgerald May 08, 2017 07:43
--- NOTE | 2017-05-08 08:22 | HHI.CCPN ---
Subjective Remarks/Hospital Course This is a 42yF with unremarkable past medical history who presents to the [facility] emergency department with new-onset left-sided weakness and slurred speech. She is an employee of [employer] who had a witnessed onset of her symptoms at 12:45pm. In the [facility] ED she was immediately taken for non-contrasted head CT which was negative for acute hemorrhage. She was given iv tpa which was instituted 36 minutes after arrival, per my conversation with the manufacturing coordinator. She was then emergently transferred to [facility]. CT angiography demonstrated acute right m1 cut-off. She was taken by [facility] and arrived directly to the IR suite, where I met and evaluated the patient. Due to the acute nature of her illness and her dysarthria, a complete history is not obtainable. She does endorse right-sided headache, although denied any chest pain, shortness of breath. 04/27: Back from OR after right craniectomy for decompression s/p left MCA CVA. Heavily sedated. Some new history from a co-worker indicates that patient started taking oral contraceptive 2 months ago. 04/28: Continued problems with cerebral edema as expected. Push osmolality a little higher and restrict fluid. Tolerate pH mildly acidotic to avoid cerebral vascular constriction. 04/29: Osmolality in good range. ICP controlled. Hypothermia to 34 degrees. Raise to 35 slowly as long as ICP is acceptable. Unable to start tube feeds yet as gut motility will be poor at cooler temperature. 04/30: ICP control good. Osmolality acceptable. Temp to 35 degrees. 05/01: Raise temp to 36 degrees and hold. CXR with light basilar infiltrates, no leukocytosis. Heavily sedated for brain protection/ICP control. Persistent blood sugars 60s range - will start D5/NS at 30/hr. 05/02: vasopressor requirement uptrending. wbc uptrending as well. repeat head ct with persistent edema, although ICPs slightly improved. 05/03: slight improvement in vasopressors and lactate with ivf resuscitation. however, still persists on high doses of multiple vasopressors. ICPs stable. off versed. sputum growing chowdhury-sensitive e-coli. I performed critical care bedside echo this morning which demonstrated preserved biventricular function, no significant valvular lesions, ivc with 20% variability and measures at 1.6cm. by echo appears clinically euvolemic. 05/04: vasopressors significantly improved throughout the night. but remains on two vasopressors. this morning, cvp climbing. weaning off sedation. bolt removed. icp's controlled. still poor neurologic exam, despite weaning off sedation. (delayed note entry. seen and evaluated at 06:20am). 05/05: patient seen and evaluated at 06:15am. almost off vasopressors. however, renal function significantly worse. patient is non-oliguric, but failing to diurese fast enough for rising filling pressures. FIO2 up to 100% this morning. CXR with evidence of volume overload. bedside ultrasound of the lungs demonstrate trace pleural effusions with densely consolidated lung oquendo. echo with dilated ivc without respiratory variation, RVSP ~50 mmHg based on trace TR jet. preserved LV and RV function. neuro exam remains poor. 05/06: diuresed > 8L uop overnight. fio2 down to 60%. Cr stabilized. Nephrology consulted. neuro exam still poor. 05/07: continues to diurese, >7L/24h. fio2 still at 50%. Cr stable. neuro exam: starting to withdraw x 4. MRI today without evidence of new infarction on the left. 05/08: slowly improving neurologic exam. fio2 improved as well. continues to diurese, and almost at dry weight. wbc uptrending and low-grade fever. remains on broad spectrum abx. Objective Vital Signs Date Time Temp Pulse Resp B/P Pulse Ox O2 Delivery O2 Flow Rate FiO2 05/08/17 06:00 85 05/08/17 06:00 156/67 122/65 05/08/17 04:19 99 45 05/08/17 04:00 99.3 28 Intake and Output 05/07/17 05/07/17 05/08/17 08:00 16:00 00:00 Intake Total 630 ml 633 ml 856 ml Output Total 4200 ml 300 ml 3700 ml Balance -3570 ml 333 ml -2844 ml Result Diagram: 05/08/17 0516 05/08/17 0516 Other Results Laboratory Tests Test 05/07/17 05/08/17 14:53 05:03 Blood Gas Puncture Site ART LINE ART LINE Blood Gas Patient Temperature 98.6 98.6 Blood Gas HCO3 30 mmol/L 31 mmol/L (22-26) (22-26) Blood Gas Base Excess 6.9 mmol/L 7.2 mmol/L (-2-2) (-2-2) Blood Gas Oxygen Saturation 96 % (90-100) 95 % (90-100) Arterial Blood pH 7.52 7.49 (7.380-7.420) (7.380-7.420) Arterial Blood Partial 38 mmHg (38-42) 41 mmHg (38-42) Pressure CO2 Arterial Blood Partial 102 mmHg 100 mmHg Pressure O2 (61-120) (61-120) Arterial Blood Oxygen Content 11.2 Vol % 10.9 Vol % (12.0-20.0) (12.0-20.0) Arterial Blood 1.0 % (0-4) 1.1 % (0-4) Carboxyhemoglobin Arterial Blood Methemoglobin 1.3 % (0-2) 1.2 % (0-2) Blood Gas Hemoglobin 8.2 G/DL 8.0 G/DL (12.0-16.0) (12.0-16.0) Oxygen Delivery Device VENTILATOR VENTILATOR Blood Gas Ventilator Setting SEE NOTE PRVC/AC Blood Gas Inspired Oxygen 60 % 45 % Imaging Last 24 hours Impressions Chest X-Ray 05/05/17 0000 Signed Impressions: Service Date/Time: April 03:59 - CONCLUSION: Prominent bibasilar infiltrates. Tubes and catheters are all in good position Bertin White MD Objective Remarks gen: middle-aged female, lying in bed, encephalopathic heent: mild facial edema resolving. neck: trachea midline. orally intubated. chest: coarse crackles at the bases, improved from yesterday, good air movement equal chest rise. PCO2 control good. fio2 40%. peep 8. cv: normal rate, regular rhythm. sinus by tele. - JVD. no m,r abd: soft, nontender, nondistended. no guarding. extr: no peripheral edema. distal pulses palpable, well perfused. neuro: RASS -4;. pupils are now 3mm, equal and reactive. withdraws x 4. is now almost purposeful with the LUE. weak cough. A/P Assessment and Plan Assessment: 42yF with acute right M1 MCA CVA now s/p systemic TPA and attempted interventional mechanical thrombectomy. Her course is complicated by malignant cerebral edema requiring decompressive craniectomy and therapeutic hypothermia. She remains with cerebral edema, very critically ill, on vasopressors and now with worsening acute kidney injury and severe volume overload. First evidence of slight neuro improvement, although overall neuro exam is poor. Now almost at dry weight. will stop aggressive forced diuresis and attempt to maintain euvolemia to a slightly negative balance today. will start to gently normalize sodium as well. Family meeting planned for today, will update family on progress. From my standpoint, I think a trach/peg is reasonable as her neuro exam begins to slowly improve. She still remains very critically ill, however, with ongoing end organ dysfunction and off pathway. Plan by Systems: Neuro: Acute right M1 MCA CVA s/p systemic TPA and endovascular thrombectomy Dysarthria Left-sided hemiparesis Left-sided facial droop Malignant Cerebral Edema s/p Decompressive Craniectomy Elevated ICP -- q1h neuro checks -- wean sedation to obtain neuro exam. -- continue to hold all sedation. -- repeat EEG 05/04: generalized slowing. ?ictal focus over right hemisphere. -- repeat head CT 05/02, 05/04: stable edema, slightly enlarged left lateral ventricle, evolving right hemispheric cva -- stop hyperosmolar therapy. slowly normalize sodium. -- serial bmps -- SBP goal 110 - 160. -- keppra for seizure ppx Respiratory: Acute hypoxic and Hypercarbic respiratory failure -- start SBTs today. unlikely to pass due to mental status. -- wean fio2 for goal spo2 > 90% -- d/c etco2 monitoring. -- vent bundle -- elevated HOB Cardiovascular Septic Shock- resolved Adrenal Insufficiency Acute intravascular volume overload -- goal sbp 110 - 160 -- off vasopressors. -- pulse contour analysis and cvp monitoring. Renal: Acute Kidney Injury -- likely multifactorial at this point including ATN. currently hypervolemic. -- continue ribera with strict i/o's -- trend Cr on daily bmp -- stop bumex drip. FEN/GI Acute protein calorie malnutrition- mild Hypernatremia Lactic Acidosis- resolved. Anion-gap metabolic acidosis- resolved. Metabolic Alkalosis secondary to intravascular contraction -- TF, nepro. -- ICU electrolyte protocol -- daily bmp, mg, phos. -- diamox 500mg iv q8h. -- start gentle free water per tube: 200 q6h. Heme/ID: Anemia secondary to acute blood loss Leukocytosis E. Coli Pneumonia, likely secondary to aspiration at time of stroke -- Zosyn, renally dosed, pulmonary source. -- sputum culture 05/01: e.coli, chowdhury sensitive -- urine, blood cultures 05/02 NGTD. -- daily cbc -- leukocytosis is concerning, but patient is nontoxic appearing and on BSAbx. will replace CVL and send u/a, keep current abx regimen. today would be day 7/7 of full abx course, but will keep zosyn today and repeat cbc in AM, if it improves, will consider d/c abx tomorrow. Endo: Hypoglycemia- improved. Adrenal Insufficiency -- d/c d10w, glycemic control improved. -- frequent glucose checks. -- out of shock. decrease hydrocortisone to 50 mg iv q12h. would plan on a very slow taper given degree of adrenal insufficiency with random cortisol in shock of 6. Prophy: -- SCDs -- pepcid iv for gi prophylaxis Lines: -- LIJ TLC- will change today. -- right radial art line 05/05 Overall impression: Large distribution right MCA CVA with shift required decompressive craniectomy 04/27 in an attempt to rescue the dominant hemisphere. She is critically ill with an unstable neurological process, along with multi organ system dysfunction at this point. This patient remains critically ill with one or more organ systems which are or may become a threat to life. I have spent in excess of 44 minutes discontinuously in the care and management of this patient. This time is exclusive of procedures, and includes, but is not limited to, evaluation of the patient, review of the medical record, discussions with family, consultants, nursing staff, or respiratory therapy, and documentation in the medical record. Remi Freeman MD May 08, 2017 08:21
[2017-05-08] MEDS: RESP: ALBUTEROL 2.5 MG/IPRATROPIUM 0.5 MG NEB (PRN) INH ×2 (08:45→17:15)
[2017-05-08] MEDS: SODIUM CHLORIDE 0.9% FLUSH 10 ML FLUSH IV FLUSH PRN (08:47)
[2017-05-08] MEDS: PANTOPRAZOLE SODIUM 40 MG VIAL IV SCH (08:47)
[2017-05-08] MEDS: DOCUSATE SODIUM 100 MG CAP PO SCH ×2 (08:49→21:26)
[2017-05-08] MEDS: DOCUSATE SODIUM 50 MG/SENNA 8.6 MG TAB PO SCH ×2 (08:49→21:25)
[2017-05-08] MEDS: METOCLOPRAMIDE HCL 10 MG/2 ML VIAL IV PUSH SCH ×3 (08:49→23:33)
[2017-05-08] MEDS: ASPIRIN 325 MG TAB PO SCH (08:49)
[2017-05-08] MEDS: levETIRAcetam INJ 500 MG in SODIUM CHLORIDE 0.9% INJ 100 ML IV SCH ×2 (08:49→21:25)
[2017-05-08] MEDS: CHLORHEXIDINE 0.12% (ORAL KIT) 15 ML CUP MT SCH ×2 (08:50→21:23)
[2017-05-08] MEDS: ARTIFICIAL TEARS OPTH OINT 3.5 APPLIC/3.5 GM TUBO EACH EYE SCH ×2 (08:50→21:00)
--- NOTE | 2017-05-08 10:00 | EKG ---
Date Performed: 05/06/2017 Time Performed: 21:24:18 PTAGE: 42 years EKG: Sinus rhythm Anterior T wave changes are nonspecific Borderline ECG PREVIOUS TRACING : 05/06/2017 21.22 DOCTOR: Bertin Veliz Interpretating Date/Time 05/08/2017 09:48:14
[2017-05-08 11:15] LABS: BACTERIA, URINE OCC /hpf; BLOOD, URINE NEG (NEG); COMMENT (UR) CATH-CULTURE IND; CULTURE IF INDICATED CATH CULTURE IND; GLUCOSE,URINE NEG (NEG); KETONE, URINE NEG (NEG); MUCUS URINE FEW /lpf (OCC); NITRITE,URINE NEG (NEG); PH, URINE 8.5 (5.0-8.5); URINE COLOR LIGHT-YELLOW (YELLW/STRAW)
--- NOTE | 2017-05-08 11:41 | HHI.NPPN ---
Subjective History of Present Illness 42 y/o female with no PMH. She was at work when she suffered a CVA, received TPA. That was on 04/26. She later went to OR for craniotomy, clot removal. She received a blood transfusion at that time. She became hypotensive and was on multiple pressors Additional Remarks Patient remain intubated and sedated, on CPAP now. Objective Data Data 05/07/17 05/08/17 19:00 07:00 Intake Total 633 ml 1586 ml Output Total 300 ml 6600 ml Balance 333 ml -5014 ml IV Total 513 ml 1546 ml Other 120 ml 40 ml Output Urine Total 200 ml 6000 ml Stool Total 100 ml 500 ml Gastric Drainage Total 0 ml 100 ml Vital Signs Date Time Temp Pulse Resp B/P Pulse Ox O2 Delivery O2 Flow Rate FiO2 05/08/17 08:20 99 40 05/08/17 08:20 100 Ventilator 40 05/08/17 08:20 40 05/08/17 06:00 85 05/08/17 06:00 85 156/67 122/65 05/08/17 04:19 99 45 05/08/17 04:00 99.3 92 28 156/67 100 120/68 05/08/17 04:00 92 05/08/17 04:00 45 05/08/17 02:00 87 05/08/17 00:00 98.3 94 26 155/66 100 124/61 05/08/17 00:00 45 05/08/17 00:00 86 05/07/17 23:58 100 45 05/07/17 23:46 28 05/07/17 22:15 23 05/07/17 22:00 86 05/07/17 20:30 45 05/07/17 20:00 98.9 92 28 159/63 94 126/65 05/07/17 20:00 92 05/07/17 20:00 45 05/07/17 19:57 93 45 05/07/17 18:00 107 05/07/17 18:00 109 138/53 113/53 05/07/17 16:41 95 45 05/07/17 16:00 99.2 73 25 168/71 99 126/65 05/07/17 16:00 83 05/07/17 16:00 45 05/07/17 14:00 83 05/07/17 12:59 96 60 05/07/17 12:00 83 05/07/17 12:00 60 05/07/17 12:00 99.2 68 24 136/81 97 130/74 -: 05/08/17 0516 05/08/17 0516 Microbiology 05/08/17 Urine Culture, Received Pending Physical Exam General Appearance Remarks Intubated and unresponsive. Eyes Eye Exam: Pupils Equal Throat Throat Exam: Oral Mucosa [place] & Moist Neck Neck Exam: Neck Supple Pulmonary Resp Exam: No Distress, Rhonchi, Decreased Bases Cardiology CV Exam: Regular, Normal Sinus Rhythm Gastrointestinal/Abdomen GI Exam: Soft, Non-Tender, Bowel Sounds Present Extremeties Extremities Exam: Trace Edema Neurologic Neuro Exam: Unresponsive Assessment/Plan Assessment Summary: FADUMO/Acute Renal Failure Problem List: (1) FADUMO (acute kidney injury) Plan: In a pt with normal renal function at baseline renal function has stabilized overnight FADUMO likely due to hypotension and decreased renal perfusion, may have progressed to ATN her urine output had dropped but has responded to diuretics continue diuresis, cautiously Creatinine is almost same. K is low, and Na. is elevated. Bumex stopped, started on Diamox, as PH increased. Also started on free water, need to keep Na 145-150. Dr. Bains will follow in AM. (2) CVA (cerebral vascular accident) Plan: neurosurgery following s/p crani unsure what manager intermediate prognosis is 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 continue and monitor response avoid IVF Problem Qualifiers (1) CVA (cerebral vascular accident): Qualified Code: I63.9 - Cerebrovascular accident (CVA), unspecified mechanism Satnam Torres MD May 08, 2017 11:41
--- NOTE | 2017-05-08 11:57 | PD.PROCEDR ---
Procedure Note Procedure Central Line Procedure Note Right subclavian triple lumen catheter Diagnosis: Right MCA CVA Indications: Need for central pressure monitoring in a patient with acute volume overload and acute kidney injury Consent: Written consent was obtained Anesthesia: Lidocaine 1% locally Description of the Procedure: The patient was placed in the supine, mild- Trendelenburg position. The area was prepped and draped sterilely. A 19g needle was inserted under negative pressure aspiration and dark venous blood was obtained. A guidewire was inserted easily without resistance. A small incision was made using a #11 blade. Using a modified Seldinger technique, the dilator and 7 [place], 20 cm catheter were advanced over the guidewire without resistance. All ports were aspirated and flushed, and had brisk blood return. The line was secured at 18 cm at the skin using 2-0 silk interrupted sutures. A Biopatch and Transparent sterile dressing were applied. There were no immediate complications noted. There was minimal EBL. The patient tolerated the procedure well. Ultrasound guidance was not used for this procedure A Chest x-ray has been ordered. I personally performed the procedure. Remi Freeman MD May 08, 2017 11:56
--- NOTE | 2017-05-08 12:16 | RADRPT ---
EXAM DATE/TIME: 05/08/2017 11:52 [facility] COMPARISON: CHEST SINGLE AP, April 26, 2017, 14:01. INDICATIONS : Central line placement. MEDICAL HISTORY : None. SURGICAL HISTORY : None. ENCOUNTER: Initial ACUITY: 1 day PAIN SCORE: Non-responsive. LOCATION: Bilateral chest FINDINGS: Decreased consolidation of the bases, now very mild on the right and [id number] on the left. Sm all left pleural effusion possible. No pneumothorax. I believe there may be a hiatal hernia. Nasogastric tube courses below the diaphragm. Endotracheal tube tip is about 4 cm above the tricia. T here is a left internal jugular central venous catheter with tip in the right atrium and a new right subclavian central venous catheter with tip at the atriocaval junction. CONCLUSION: 1. New right subclavian central venous catheter with tip at the atriocaval junction. No pneumothorax. 2. Unchanged other lines and tubes, including a left internal jugular central venous catheter with ti p in the right atrium. 3. Left greater than right basilar consolidation, both sides improved. Juancho Dolan MD on May 08, 2017 at 12:11 Board Certified Radiologist. This report was verified electronically.
[2017-05-08 13:13] LABS: MAGNESIUM 3.5 MG/DL (1.5-2.5)
[2017-05-08 13:17] LABS: POTASSIUM 2.6 MEQ/L (3.5-5.1)
--- NOTE | 2017-05-08 13:42 | RADRPT ---
EXAM DATE/TIME: 05/08/2017 13:20 [facility] COMPARISON: CT BRAIN W/O CONTRAST, April 26, 2017, 12:51. MRI BRAIN W/O CONTRAST, May 07, 2017, 10:19. CT BRAIN W/O CONTRAST, May 04, 2017, 4:34. INDICATIONS : Altered mental status. RADIATION DOSE: 56.35 CTDIvol (mGy) MEDICAL HISTORY : Stroke. SURGICAL HISTORY : Craniotomy. ENCOUNTER: Subsequent ACUITY: 1 day PAIN SCALE: Non-responsive LOCATION: Bilateral head TECHNIQUE: Multiple contiguous axial images were obtained of the head. Using automated exposure control and adj ustment of the mA and/or kV according to patient size, radiation dose was kept as low as reasonably a chievable to obtain optimal diagnostic quality images. FINDINGS: Subacute, evolving right middle cerebral artery distribution infarct again noted status post cranioto my decompression. Large area of herniation seen in the right temporal, parietal and frontal lobes. An approximately 3.2 cm area of parenchymal hemorrhage has developed of the right temporal lobe within the herniated area, series 2 image 13. Approximately 2 mm of leftward midline shift present. No new ischemic event demonstrated. No mass lesion seen. CONCLUSION: Evolving subacute right middle cerebral artery distribution infarct. 3.2 cm acute parenchymal hemorrh age has developed within the infarcted and herniated right temporal lobe. Minimal midline shift. Juancho Dolan MD on May 08, 2017 at 13:33 Board Certified Radiologist. This report was verified electronically.
--- NOTE | 2017-05-08 13:59 | HHI.PR ---
Review/Management Diagnosis right MCA stroke, s/p iv tpa and thrombectomy of right M1 thrombus. Plan stop aspirin given the hemorrhage in right mca stroke. recheck coags and lft hematology consult RE elevated aptt and r/o hypercoag state Diagnosis/Plan: Subjective Subjective Comments pt developed left eye deviation Active Medications Current Medications Medications (Trade) Dose Ordered Sig/Elida Route Start Time Stop Time Status Last Admin (D50w (Vial) Inj) 25 ml UNSCH PRN IV PUSH 04/26/17 14:15 05/03/17 06:49 (Protonix Inj) 40 mg DAILY IV 04/27/17 09:00 05/08/17 08:47 (Zofran Inj) 4 mg Q6H PRN IV 04/26/17 14:15 Miscellaneous Information 1 Q361D XX 04/26/17 14:15 (Chlorhexidine 2% Cloth) Taper DAILY@04 TOP 04/27/17 04:00 04/23/18 03:59 04/30/17 04:00 (Chlorhexidine 2% Cloth) 3 pack UNSCH PRN TOP 04/26/17 14:15 (Avelina-Colace) 1 tab BID PO 04/26/17 21:00 05/07/17 08:42 (Trandate Inj) 20 mg Q15M PRN IV PUSH 04/26/17 15:30 05/08/17 06:45 Hydralazine HCl 10 mg 10 mg Q30M PRN IV PUSH 04/26/17 15:30 05/08/17 08:53 (Keppra Inj/NS Inj) 105 ml @ 400 mls/hr Q12H IV 04/27/17 21:00 05/08/17 08:49 (Dulcolax Supp) 10 mg DAILY PRN RECTAL 04/27/17 10:30 05/01/17 08:29 (Colace) 100 mg BID PO 04/27/17 21:00 05/06/17 20:32 Calcium Gluconate 1 gm 1 gm UNSCH PRN IV 04/27/17 10:30 04/30/17 19:04 Potassium Chloride 100 ml @ 50 mls/hr UNSCH PRN IV 04/27/17 10:30 05/08/17 03:20 (Magnesium Sulfate Inj/NS Inj) 108 ml @ 108 mls/hr UNSCH PRN IV 04/27/17 10:30 05/01/17 17:56 (Morphine Inj) 2 mg Q2H PRN IV PUSH 04/27/17 10:30 05/07/17 23:02 (Morphine Inj) 4 mg Q2H PRN IV PUSH 04/27/17 10:30 05/02/17 05:29 (Peridex 0.12% Liq) 15 ml BID@08,20 MT 04/27/17 20:00 05/08/17 08:50 (Lacrilube Opht Oint) APPLY UNDER BOTH EYELIDS BID EACH EYE 04/28/17 21:00 05/08/17 08:50 Lorazepam 1 mg 1 mg Q1H PRN IV 04/28/17 11:15 Miscellaneous Information ml @ 0 mls/hr UNSCH IV 04/28/17 11:15 (NS Flush) 2 ml UNSCH PRN IV FLUSH 04/28/17 11:15 05/08/17 08:47 (NS Flush) 2 ml UNSCH PRN IV FLUSH 04/28/17 11:15 Artificial Tears 1 applic 1 applic Q4H PRN EACH EYE 04/28/17 11:15 05/01/17 19:49 (Neosynephrine Inj/NS 500 ml Inj) 500 ml @ 0 mls/hr TITRATE IV 05/01/17 15:00 05/06/17 05:55 Acetaminophen 1000 mg 1,000 mg Q6H PRN IV 05/02/17 09:45 05/08/17 03:21 (Zosyn 3.375 Gm Premix) 50 ml @ 100 mls/hr Q6H IV 05/05/17 16:00 05/08/17 08:49 (Reglan Inj) 5 mg Q8H IV PUSH 05/06/17 00:00 05/08/17 08:49 (Symmetrel Liq) 200 mg BID@07,12 PO 05/07/17 07:00 05/08/17 12:37 (Diamox Inj) 500 mg Q8H IV PUSH 05/08/17 07:00 05/08/17 23:01 05/08/17 08:48 (SoluCORTEF INJ) 50 mg Q12HR IV PUSH 05/08/17 09:00 05/08/17 08:48 (Free Water) 200 ml Q6HR PO 05/08/17 07:17 05/08/17 12:00 Allergies Allergies Coded Allergies Shellfish (Verified Allergy, Unknown, 04/26/17) Exam I&O / VS 05/07/17 05/07/17 05/08/17 15:00 23:00 07:00 Intake Total 633 ml 856 ml 730 ml Output Total 300 ml 3700 ml 2900 ml Balance 333 ml -2844 ml -2170 ml IV Total 513 ml 816 ml 730 ml Other 120 ml 40 ml 0 ml Output Urine Total 200 ml 3400 ml 2600 ml Stool Total 100 ml 200 ml 300 ml Gastric Drainage Total 0 ml 100 ml 0 ml Vital Signs Date Time Temp Pulse Resp B/P Pulse Ox O2 Delivery O2 Flow Rate FiO2 05/08/17 13:15 99 100 05/08/17 08:20 99 40 05/08/17 08:20 100 Ventilator 40 05/08/17 08:20 40 05/08/17 06:00 85 05/08/17 06:00 85 156/67 122/65 05/08/17 04:19 99 45 05/08/17 04:00 99.3 92 28 156/67 100 120/68 05/08/17 04:00 92 05/08/17 04:00 45 05/08/17 02:00 87 05/08/17 00:00 98.3 94 26 155/66 100 124/61 05/08/17 00:00 45 05/08/17 00:00 86 05/07/17 23:58 100 45 05/07/17 23:46 28 05/07/17 22:15 23 05/07/17 22:00 86 05/07/17 20:30 45 05/07/17 20:00 98.9 92 28 159/63 94 126/65 05/07/17 20:00 92 05/07/17 20:00 45 05/07/17 19:57 93 45 05/07/17 18:00 107 05/07/17 18:00 109 138/53 113/53 05/07/17 16:41 95 45 05/07/17 16:00 99.2 73 25 168/71 99 126/65 05/07/17 16:00 83 05/07/17 16:00 45 05/07/17 14:00 83 Exam Comments nonresponsive pupils 3 mm right nonreactive, 2 mm left and reactive, disconjugate gaze with left eye deviated temporally does withdraw BLE Objective Radiology Results CT brain--new area of hemorrhage in right parietal infarct. Still with significant mass effect. Micro and Labs Laboratory Tests Test 05/07/17 05/07/17 05/07/17 05/08/17 14:30 14:53 18:30 05:03 Urine Eosinophils NONE SEEN Blood Gas Puncture Site ART LINE ART LINE Blood Gas Patient Temperature 98.6 98.6 Blood Gas HCO3 30 31 Blood Gas Base Excess 6.9 7.2 Blood Gas Oxygen Saturation 96 95 Arterial Blood pH 7.52 7.49 Arterial Blood Partial 38 41 Pressure CO2 Arterial Blood Partial 102 100 Pressure O2 Arterial Blood Oxygen Content 11.2 10.9 Arterial Blood 1.0 1.1 Carboxyhemoglobin Arterial Blood Methemoglobin 1.3 1.2 Blood Gas Hemoglobin 8.2 8.0 Oxygen Delivery Device VENTILATOR VENTILATOR Blood Gas Ventilator Setting SEE NOTE PRVC/AC Blood Gas Inspired Oxygen 60 45 Sodium Level 156 Potassium Level 3.0 Chloride Level 113 Carbon Dioxide Level 30.9 Anion Gap 12 Blood Urea Nitrogen 69 Creatinine 2.45 Estimat Glomerular Filtration 21 Rate Random Glucose 121 Calcium Level 8.1 Magnesium Level 3.0 Test 05/08/17 05/08/17 05/08/17 05:16 10:35 12:15 White Blood Count 20.3 Red Blood Count 2.52 Hemoglobin 7.6 Hematocrit 23.2 Mean Corpuscular Volume 92.1 Mean Corpuscular Hemoglobin 30.2 Mean Corpuscular Hemoglobin 32.8 Concent Red Cell Distribution Width 15.2 Platelet Count 166 Mean Platelet Volume 10.9 Sodium Level 157 160 Potassium Level 3.0 2.6 Chloride Level 115 119 Carbon Dioxide Level 29.9 32.0 Anion Gap 12 9 Blood Urea Nitrogen 73 75 Creatinine 2.54 2.47 Estimat Glomerular Filtration 21 21 Rate Random Glucose 119 117 Calcium Level 8.6 8.6 Phosphorus Level 4.9 Magnesium Level 3.5 3.5 Urine Color LIGHT-YELLOW Urine Turbidity CLEAR Urine pH 8.5 Urine Specific [place] 1.015 Urine Protein TRACE Urine Glucose (UA) NEG Urine Ketones NEG Urine Occult Blood NEG Urine Nitrite NEG Urine Bilirubin NEG Urine Urobilinogen LESS THAN 2.0 Urine Leukocyte Esterase NEG Urine RBC 2 Urine WBC 6 Urine Bacteria OCC Urine Mucus FEW Urine Yeast (Budding) FEW Microscopic Urinalysis Comment CATH-CULTURE IND Date/Time Procedure Status Source Growth 05/08/17 10:35 Urine Culture Received Urine Catheterized Urine Pending Santana Gomez PhD May 08, 2017 13:59
[2017-05-08] MEDS: MORPHINE SULFATE 4 MG/ML INJ IV PUSH PRN ×2 (14:47→21:25)
--- NOTE | 2017-05-08 16:00 | MG ---
cc: MIRIAM POP M.D. Lab No: [id number] Date: 05/09/2017 Age: Sex: F Race: TECHNIQUE: 17 channel EEG. DESCRIPTION: Background rhythm reveals generalized slowing in the delta frequency at about 3-4 Hz. There is some muscle artifact present bilaterally. The response is attenuated over the right hemisphere. No epileptiform features are identified. INTERPRETATION: Abnormal study consistent with a diffuse encephalopathy with attenuated activity over the right hemisphere consistent with the patient's known history of cerebral infarction in that distribution. No epileptiform features are seen. MD DAKOTA Franco/OLENA /3:55 PM /4:03 PM
[2017-05-08 16:42] LABS: BLOOD GAS BASE EXCESS 3.2 mmol/L (-2-2); BLOOD GAS HCO3 27 mmol/L (22-26); BLOOD GAS METHEMOGLOBIN 1.3 % (0-2); BLOOD GAS O2 HGB SATURATION 96 % (90-100); BLOOD GAS OXYGEN CONTENT 10.6 Vol % (12.0-20.0); BLOOD GAS PCO2 41 mmHg (38-42); BLOOD GAS PO2 111 mmHg (61-120); BLOOD GAS TOTAL HGB 7.8 G/DL (12.0-16.0); CRITICAL VALUE NO; OXYGEN DEVICE VENTILATOR; TEMP CORR TO 98.6
[2017-05-08 16:43] LABS: DRAW SITE ART LINE; FIO2 40 %; STAT NO; VENT SETTINGS PRVC/AC 400/22/
[2017-05-08 16:49] LABS: AUTOMATED NEUTROPHIL # 17.7 TH/MM3 (1.8-7.7); BASOPHIL % 0.2 % (0.0-2.0); HEMATOCRIT 23.7 % (35.0-46.0); LYMPH % 6.2 % (9.0-44.0); LYMPHOCYTE # 1.2 TH/MM3 (1.0-4.8); MEAN CELL VOLUME 95.9 FL (80.0-100.0); MEAN CORPUSCULAR HEMOGLOBIN 29.9 PG (27.0-34.0); MEAN CORPUSCULAR HGB CONC 31.2 % (32.0-36.0); MONO % 3.7 % (0.0-8.0); NEUT % 89.9 % (16.0-70.0); PLATELET COUNT 181 TH/MM3 (150-450); RED BLOOD COUNT 2.48 MIL/MM3 (4.00-5.30); RED CELL DISTRIBUTION WIDTH 15.6 % (11.6-17.2); WHITE BLOOD COUNT 19.8 TH/MM3 (4.0-11.0)
[2017-05-08 16:55] LABS: HEMO FLAGS AUTO DIFF
[2017-05-08 16:57] LABS: APTT (PATIENT) 24.6 SEC (24.3-30.1); INTERNATIONAL NORMALIZED RATIO 1.1 RATIO; PROTHROMBIN TIME - PATIENT 12.4 SEC (9.8-11.6)
[2017-05-08 17:13] LABS: INDIRECT BILIRUBIN 0.3 MG/DL (0.0-0.8); TOTAL BILIRUBIN ADULT 0.5 MG/DL (0.2-1.0)
[2017-05-08 17:42] LABS: BANDS 24 % (0-6); NEUTROPHIL # MANUAL DIFF 18.8 TH/MM3 (1.8-7.7); POLYS (SEG NEUTROPHILS) 71 % (16-70); WBC DIFF SAMPLE 100
[2017-05-08 17:43] LABS: PLATELET ESTIMATE SMEAR NORMAL (NORMAL); PLATELET MORPHOLOGY NORMAL (NORMAL); SCAN/DIFF FINAL DIFF MANUAL
[2017-05-08] MEDS: ARTIFICIAL TEARS OPTH OINT 3.5 APPLIC/3.5 GM TUBO EACH EYE PRN ×2 (23:32→23:34)
[2017-05-09] VITALS (19 sets, daily range): BP systolic 121–157; BP diastolic 59–80; PULSE 65–102; RESP 20–25; TEMP 97.7–99.2; O2SAT 98–100
[2017-05-09] MEDS: INSULIN NovoLIN REGULAR SUPPLEMENTAL SCALE SQ SCH ×5 (03:00→21:00)
[2017-05-09] MEDS: ACETAMINOPHEN 1000 MG/100 ML VIAL IV PRN ×3 (03:34→20:39)
[2017-05-09] MEDS: PIPERACIL-TAZO 3.375 GM PREMIX 50 ML IV SCH ×4 (03:34→21:47)
[2017-05-09] MEDS: CHLORHEXIDINE GLUCONATE 2 % 1 PACK (2 CLOTHS) TOP SCH (03:36)
[2017-05-09 05:05] LABS: BLOOD GAS CARBOXYHEMOGLOBIN 1.1 % (0-4); BLOOD GAS HCO3 24 mmol/L (22-26); BLOOD GAS METHEMOGLOBIN 1.2 % (0-2); BLOOD GAS O2 HGB SATURATION 97 % (90-100); BLOOD GAS OXYGEN CONTENT 9.6 Vol % (12.0-20.0); BLOOD GAS PCO2 36 mmHg (38-42); BLOOD GAS PO2 173 mmHg (61-120); BLOOD GAS TOTAL HGB 6.7 G/DL (12.0-16.0); CRITICAL VALUE YES; OXYGEN DEVICE VENTILATOR; TEMP CORR TO 98.6
[2017-05-09 05:06] LABS: DRAW SITE ART LINE; FIO2 40 %; STAT NO; VENT SETTINGS PRVC/AC
[2017-05-09 05:49] LABS: HEMATOCRIT 21.6 % (35.0-46.0); MEAN CELL VOLUME 95.4 FL (80.0-100.0); MEAN CORPUSCULAR HEMOGLOBIN 30.5 PG (27.0-34.0); PLATELET COUNT 204 TH/MM3 (150-450); RED BLOOD COUNT 2.26 MIL/MM3 (4.00-5.30); RED CELL DISTRIBUTION WIDTH 15.5 % (11.6-17.2); WHITE BLOOD COUNT 17.4 TH/MM3 (4.0-11.0)
[2017-05-09 05:56] LABS: REVIEW FLAG FINAL
[2017-05-09 06:13] LABS: BICARBONATE 27.9 MEQ/L (21.0-32.0); MAGNESIUM 3.4 MG/DL (1.5-2.5)
[2017-05-09 06:38] LABS: POTASSIUM 2.6 MEQ/L (3.5-5.1)
[2017-05-09] MEDS: AMANTADINE HCL SOLN 100 MG/10 ML UDC PO SCH ×2 (07:00→14:03)
--- NOTE | 2017-05-09 07:06 | MB ---
cc: MIRIAM GOMEZ M.D., ABDUL J. M.D. DATE OF CONSULTATION 05/08/2017 REASON FOR CONSULTATION Consult requested by Dr. Gomez for evaluation of a prolonged PTT and hypercoagulable state. HISTORY OF PRESENT ILLNESS Linda is a pleasant 42-year-old female. 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 She was at work on April 26. She developed slurring of speech and left-sided weakness. She came down to the emergency room. The patient underwent immediate CAT scan of the head which was read as normal. Clearly the patient had a stroke with no brain hemorrhage. She had received t-PA and was transferred to the [facility]. The patient underwent cerebral angiogram which showed proximal right M1 occlusion consistent with findings on the CAT scan. Numerous mechanical thrombectomy attempts were done due to challenging thrombus extraction and the thrombosis following the thrombectomy. In total 10 separate thrombectomy attempts were performed yielding recanalization. The patient had a laceration of the femoral artery which was repaired by Dr. Chandler. Subsequent to that the patient's neurological condition deteriorated. The MRI of the brain showed evolving right hemispheric stroke with prominent edema. The patient had developed severe mass effect and midline shift and required decompressive craniotomy and cranioplasty which was performed by Dr. Nathan on April 27. Hypercoagulable workup was ordered at that time. Her PTT was prolonged on April 26 at 54 and on April [address] Gomez is requesting hematology consult for elevated PTT but he also ordered to repeat the PTT and PT for today. He is asking for hypercoagulable workup and prolonged PTT. The patient is on the ventilator, unable to give any history. Mother was present at the bedside. REVIEW OF SYSTEMS Not possible. The patient is on the ventilator, sedated. PAST MEDICAL HISTORY None. PAST SURGICAL HISTORY Prior to admission was none. ALLERGIES SHELLFISH. MEDICATIONS Prior to coming to the were none. FAMILY HISTORY No family history of thromboembolic disease. SOCIAL HISTORY The patient does not smoke cigarettes, does not drink alcohol. She is a nurse pr manager for [employer]. PHYSICAL EXAMINATION GENERAL: This is a well-developed, ill-appearing white female who is sedated. VITAL SIGNS: Temperature 97.5, heart rate is 65, blood pressure is 110/59. HEENT: Pupils are reactive but unequal. ET-tube noted. NECK: No lymphadenopathy. LUNGS: Clear. No wheezing, rhonchi or rales. HEART: Regular rate and rhythm. ABDOMEN: Soft, nondistended. EXTREMITIES: No pedal edema. NEUROLOGY: The patient is sedated. SKIN: No significant lesions noted. ASSESSMENT 1. Prolonged PTT which is due to the t-PA on April 26. Now the repeat PTT is back to normal as of today. No evidence of coagulopathy. 2. Massive acute MCA, status post t-PA, status post thrombectomy, status post decompressive craniotomy with cranioplasty. PLAN I have reviewed her available records and I have discussed with the patient's mom regarding the prolonged PTT and hypercoagulable panel results. On April 26 prior to the t-PA her PTT was normal at 25.8. After the t-PA was on the same night her PTT was prolonged at 54.4 and the next day in the morning the PTT was 46.5. She has not had a repeat PTT up until this afternoon when it came back at 24.6. So the prolonged PTT was due to the t-PA infusion. Now the PTT is back to normal. No further intervention is required for that. Regarding the hypercoagulable state, the patient underwent hypercoagulable panel on April 26. The patient does not have Factor V Leiden mutation. The prothrombin gene mutation is also negative. She does not have any lupus anticoagulant. The protein C and S both are normal. Phospholipid antibodies were negative. Antithrombin III and other tests were not ordered. Her hypercoagulable panel is essentially negative except that the antithrombin III , homocysteine and full APL panel needs to be checked to complete the hypercoagulable work up. Her acute stroke management is per Dr. Gomez and Dr. Nathan. No further oncology intervention is required. I will order the antithrombin III , homocystine and full APL panel. Further recommendations based on her hospital stay. Thank you for asking my opinion. MD LAUREN Patel/CAIT /2:31 AM /6:53 AM SERGE
[2017-05-09] MEDS: CHLORHEXIDINE 0.12% (ORAL KIT) 15 ML CUP MT SCH ×2 (07:56→21:48)
[2017-05-09] MEDS: METOCLOPRAMIDE HCL 10 MG/2 ML VIAL IV PUSH SCH ×3 (08:00→23:06)
[2017-05-09] MEDS ORDERED: POTASSIUM CHLOR 40 MEQ PREMIX 100 ML IV ONE ×4 (08:00→22:00)
[2017-05-09] MEDS: FREE WATER PO SCH ×3 (08:21→18:00)
[2017-05-09] MEDS: DOCUSATE SODIUM 50 MG/SENNA 8.6 MG TAB PO SCH ×2 (09:00→20:39)
[2017-05-09] MEDS: DOCUSATE SODIUM 100 MG CAP PO SCH ×2 (09:00→20:39)
--- NOTE | 2017-05-09 09:38 | RADRPT ---
EXAM DATE/TIME: 05/09/2017 08:46 [place] COMPARISON: CT BRAIN W/O CONTRAST, May 08, 2017, 13:20. INDICATIONS : Follow up bleed RADIATION DOSE: 35 CTDIvol (mGy) MEDICAL HISTORY : None SURGICAL HISTORY : Craniotomy. ENCOUNTER: Subsequent ACUITY: 2 weeks PAIN SCALE: Non-responsive LOCATION: Cranial TECHNIQUE: Multiple contiguous axial images were obtained of the head. Using automated exposure control and adj ustment of the mA and/or kV according to patient size, radiation dose was kept as low as reasonably a chievable to obtain optimal diagnostic quality images. FINDINGS: There is no significant change in the areas of intraparenchymal hemorrhage within the right temporal and parietal lobes. The largest of intraparenchymal hemorrhage measures 3 cm. There is persistent herniation of the right temporal, parietal and frontal lobes through the craniectomy defect which is stable. Large area of c ytotoxic edema is noted throughout the right middle cerebral artery distribution and is stable. No significan t midline shift is noted. no new areas of acute intraparenchymal or extraaxial bleed are noted. CONCLUSION: 1. Stable areas of acute intraparenchymal hemorrhage within the right temporal and parietal lobes wi th the largest area measuring 3 cm. Extensive cytotoxic edema is also noted throughout the right mid dle cerebral artery distribution and is stable. There is persistent herniation of the right temporal , parietal and frontal lobes through the right craniectomy defect which is stable. Nam Rivas MD on May 09, 2017 at 9:25 Board Certified Radiologist. This report was verified electronically.
[2017-05-09] MEDS: PANTOPRAZOLE SODIUM 40 MG VIAL IV SCH (10:11)
[2017-05-09] MEDS: levETIRAcetam INJ 500 MG in SODIUM CHLORIDE 0.9% INJ 100 ML IV SCH ×2 (10:11→20:38)
[2017-05-09] MEDS: ARTIFICIAL TEARS OPTH OINT 3.5 APPLIC/3.5 GM TUBO EACH EYE SCH ×2 (10:11→20:47)
[2017-05-09] MEDS: hydrALAZINE HCL 20 MG/ML VIAL IV PUSH PRN ×2 (10:11→21:47)
[2017-05-09] MEDS: HYDROCORTISONE SOD SUCCINATE 100 MG VIAL IV PUSH SCH ×2 (10:12→20:38)
--- NOTE | 2017-05-09 11:15 | HHI.NSPN ---
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 Her MRI showed midline shift and was taken for emergent right decompressive craniectomy 04/27/17 with placement of ICP monitor. 04/28: pt seen this am during rounds: ICPs became elevated last evening and early this morning in the mid 20's. pt started on Versed drip with bolus of 23%. On Mannitol and 3% NS. ICPs now 11-14. Critical care aware will be initiating code cool. Unstable for repeat CT Head this am. 04/29: intubated and well sedated, hypothermic therapy. ICPs improved and stable overnight. 04/30: ICPs in the high teens. On max sedation. Elevated serums os and sodium levels. Increasing vent rate to decrease pCO2. Started rewarming. 05/01: slowly being rewarmed. ICPs high teens but stable. remains well sedated 05/02: ICPs better today in the mid teens. Well sedated. Febrile. 05/03: ICPs 11-17 overnight, currently 12. Versed off, and off hypothermic tx. 05/04: stable ICPs overnight, no changes to neuro check 05/05: sedation off since 1529 yesterday. No eye opening, no spontaneous movements. 05/06: positive for pneumonia, poor renal function. no changes to neuro checks. 05/09: remains off sedation, nursing reports ? tried to reach when being suctioned. EEG 05/08 neg for seizures. f/u CT Head completed this am (Sakina Israel) Labs, Micro, & Vital Signs Results Date Time Temp Pulse Resp B/P Pulse Ox O2 Delivery O2 Flow Rate FiO2 05/09/17 10:00 67 05/09/17 09:33 40 05/09/17 09:29 100 40 05/09/17 09:04 100 100 05/09/17 08:00 40 05/09/17 08:00 98.9 67 25 155/79 100 05/09/17 08:00 67 05/09/17 06:00 85 157/80 123/68 05/09/17 06:00 65 05/09/17 04:12 100 40 05/09/17 04:00 98.7 75 24 153/77 100 05/09/17 04:00 74 05/09/17 04:00 40 05/09/17 02:00 74 05/09/17 00:20 100 40 05/09/17 00:00 74 05/09/17 00:00 98.0 74 24 132/59 100 05/09/17 00:00 40 05/08/17 22:00 87 05/08/17 20:43 100 40 05/08/17 20:00 82 05/08/17 20:00 98.0 91 25 145/65 100 05/08/17 20:00 40 05/08/17 18:00 82 05/08/17 18:00 85 127/52 99/57 05/08/17 17:16 97 40 05/08/17 16:00 45 05/08/17 16:00 97.5 89 22 110/59 99 05/08/17 16:00 65 05/08/17 14:07 100 40 05/08/17 14:00 89 05/08/17 13:15 99 100 05/08/17 13:00 45 05/08/17 12:00 98.3 77 23 154/67 98 05/08/17 12:00 77 05/09/17 07:00 Intake Total 3428 ml Output Total 4500.0 ml Balance -1072.0 ml Constitutional Vital Signs Date Time Temp Pulse Resp B/P Pulse Ox O2 Delivery O2 Flow Rate FiO2 05/09/17 10:00 67 05/09/17 09:33 40 05/09/17 09:29 100 40 05/09/17 09:04 100 100 05/09/17 08:00 40 05/09/17 08:00 98.9 67 25 155/79 100 05/09/17 08:00 67 05/09/17 06:00 85 157/80 123/68 05/09/17 06:00 65 05/09/17 04:12 100 40 05/09/17 04:00 98.7 75 24 153/77 100 05/09/17 04:00 74 05/09/17 04:00 40 05/09/17 02:00 74 05/09/17 00:20 100 40 05/09/17 00:00 74 05/09/17 00:00 98.0 74 24 132/59 100 05/09/17 00:00 40 05/08/17 22:00 87 05/08/17 20:43 100 40 05/08/17 20:00 82 05/08/17 20:00 98.0 91 25 145/65 100 05/08/17 20:00 40 05/08/17 18:00 82 05/08/17 18:00 85 127/52 99/57 05/08/17 17:16 97 40 05/08/17 16:00 45 05/08/17 16:00 97.5 89 22 110/59 99 05/08/17 16:00 65 05/08/17 14:07 100 40 05/08/17 14:00 89 05/08/17 13:15 99 100 05/08/17 13:00 45 05/08/17 12:00 98.3 77 23 154/67 98 05/08/17 12:00 77 05/09/17 07:00 Intake Total 3428 ml Output Total 4500.0 ml Balance -1072.0 ml (Sakina Israel) Review of Systems/Exam Exam Ms. Toledo is intubated, no IV sedatives. Eyes appear slightly open but does not focus or track No spontaneous movements. Right flap remains full, soft to palpate. Surgical wound healing well. clean and dry. Cranial Nerves: Left pupil 4, right pupil 6, b/l nonreactive. left disconjugate gaze. Prince: mild withdrawals in feet to nailbed stimulation Bilateral plantar response silent. (Sakina Israel) Medications Current Medications Current Medications Medications (Trade) Dose Ordered Sig/Elida Route PRN Reason Start Time Stop Time Status Last Admin Dose Admin Dextrose (D50w (Vial) Inj) 25 ml UNSCH PRN IV PUSH HYPOGLYCEMIA-SEE COMMENTS 04/26/17 14:15 05/03/17 06:49 Pantoprazole Sodium (Protonix Inj) 40 mg DAILY IV 04/27/17 09:00 05/09/17 10:11 Ondansetron HCl (Zofran Inj) 4 mg Q6H PRN IV NAUSEA OR VOMITING 04/26/17 14:15 Miscellaneous Information 1 Q361D XX 04/26/17 14:15 Chlorhexidine Gluconate (Chlorhexidine 2% Cloth) Taper DAILY@04 TOP 04/27/17 04:00 04/23/18 03:59 05/09/17 03:36 Chlorhexidine Gluconate (Chlorhexidine 2% Cloth) 3 pack UNSCH PRN TOP HYGIENIC CARE 04/26/17 14:15 Senna/Docusate Sodium (Avelina-Colace) 1 tab BID PO 04/26/17 21:00 05/08/17 21:25 Labetalol HCl (Trandate Inj) 20 mg Q15M PRN IV PUSH sbp > 160 04/26/17 15:30 05/08/17 06:45 Hydralazine HCl 10 mg 10 mg Q30M PRN IV PUSH sbp > 160 04/26/17 15:30 05/09/17 10:11 Levetriacetam/ Sodium Chloride (Keppra Inj/NS Inj) 105 ml @ 400 mls/hr Q12H IV 04/27/17 21:00 05/09/17 10:11 Bisacodyl (Dulcolax Supp) 10 mg DAILY PRN RECTAL CONSTIPATION 04/27/17 10:30 05/01/17 08:29 Docusate Sodium (Colace) 100 mg BID PO 04/27/17 21:00 05/08/17 21:26 Calcium Gluconate 1 gm 1 gm UNSCH PRN IV SEE LABEL COMMENTS 04/27/17 10:30 04/30/17 19:04 Potassium Chloride 100 ml @ 50 mls/hr UNSCH PRN IV POTASSIUM LESS THAN 4 04/27/17 10:30 05/08/17 14:40 Magnesium Sulfate/ Sodium Chloride (Magnesium Sulfate Inj/NS Inj) 108 ml @ 108 mls/hr UNSCH PRN IV MAGNESIUM LESS THAN 2 04/27/17 10:30 05/01/17 17:56 Morphine Sulfate (Morphine Inj) 2 mg Q2H PRN IV PUSH PAIN SCALE 1 TO 6 04/27/17 10:30 05/07/17 23:02 Morphine Sulfate (Morphine Inj) 4 mg Q2H PRN IV PUSH PAIN SCALE 7 TO 10 04/27/17 10:30 05/08/17 21:25 Chlorhexidine Gluconate (Peridex 0.12% Liq) 15 ml BID@08,20 MT 04/27/17 20:00 05/09/17 07:56 Artificial Tears (Lacrilube Opht Oint) APPLY UNDER BOTH EYELIDS BID EACH EYE 04/28/17 21:00 05/09/17 10:11 Lorazepam 1 mg 1 mg Q1H PRN IV SEIZURES 04/28/17 11:15 Miscellaneous Information ml @ 0 mls/hr UNSCH IV 04/28/17 11:15 Sodium Chloride (NS Flush) 2 ml UNSCH PRN IV FLUSH SEE LABEL COMMENTS 04/28/17 11:15 05/08/17 08:47 Sodium Chloride (NS Flush) 2 ml UNSCH PRN IV FLUSH IV FLUSH 04/28/17 11:15 Artificial Tears 1 applic 1 applic Q4H PRN EACH EYE SEE LABEL COMMENTS 04/28/17 11:15 05/08/17 23:34 Phenylephrine HCl/ Sodium Chloride (Neosynephrine Inj/NS 500 ml Inj) 500 ml @ 0 mls/hr TITRATE IV 05/01/17 15:00 05/06/17 05:55 Acetaminophen 1000 mg 1,000 mg Q6H PRN IV temp > 37 05/02/17 09:45 05/09/17 10:11 Piperacillin Sod/ Tazobactam Sod (Zosyn 3.375 Gm Premix) 50 ml @ 100 mls/hr Q6H IV 05/05/17 16:00 05/09/17 10:12 Metoclopramide HCl (Reglan Inj) 5 mg Q8H IV PUSH 05/06/17 00:00 05/08/17 23:33 Amantadine HCl (Symmetrel Liq) 200 mg BID@07,12 PO 05/07/17 07:00 05/08/17 12:37 Hydrocortisone Sodium Succinate (SoluCORTEF INJ) 50 mg Q12HR IV PUSH 05/08/17 09:00 05/09/17 10:12 Water 200 ml 200 ml Q6HR PO 05/08/17 07:17 05/09/17 08:21 Potassium Chloride 100 ml @ 25 mls/hr ONCE ONCE IV 05/09/17 08:00 05/09/17 11:59 05/09/17 07:55 Potassium Chloride 100 ml @ 25 mls/hr ONCE ONCE IV 05/09/17 11:00 05/09/17 14:59 05/09/17 10:12 Dextrose (D5W 1000 ml Inj) 1,000 ml @ 75 mls/hr [id number] IV 05/09/17 11:00 (Sakina Israel) Medical Decision Making MDM Remarks 42 year old female with large right hemispheric CVA with mass effect and midline shift, s/p right decompressive craniectomy with placement of ICP monitor 04/27/17, ICP monitor dc'ed 05/04/17 IV sedation off 05/04/17 f/u CT Head 05/09 stable right temporal intraparenchymal bleed (Sakina Irsael) Plan Plan Remarks f/u CT Head reviewed, cont neuro check cont follow up neuro examination cont critical care management cont nonchemical dvt prophylaxis in view of ICH (Sakina Israel) Attending Statement The exam, history, and the medical decision-making described in the above note were completed with the assistance of the mid-level provider. I reviewed and agree with the findings presented. I attest that I had a [id number] encounter with the patient on the same day, and personally performed and documented my assessment and findings in the medical record. (Garry Nathan MD) Sakina Israel May 09, 2017 11:15 Garry Nathan MD May 10, 2017 20:45
--- NOTE | 2017-05-09 11:15 | HHI.NPPN ---
Subjective General Problems: Anemia Renal Failure: Acute Interval History renal function is better. She is severely hypokalemic and anemic. Family at bedside. (Edna Nicole) Review of Systems General General Remarks unable to obtain (Edna Nicole) Objective Data Data 05/08/17 05/09/17 19:00 07:00 Intake Total 933 ml 2495 ml Output Total 2000.0 ml 2500 ml Balance -1067.0 ml -5 ml IV Total 270 ml 1377 ml Tube Feeding 263 ml 598 ml Other 400 ml 520 ml Output Urine Total 1500 ml 1900 ml Stool Total 500 ml 600 ml Tube Feeding Residual Discard 0 ml Vital Signs Date Time Temp Pulse Resp B/P Pulse Ox O2 Delivery O2 Flow Rate FiO2 05/09/17 10:00 67 05/09/17 09:33 40 05/09/17 09:29 100 40 05/09/17 09:04 100 100 05/09/17 08:00 40 05/09/17 08:00 98.9 67 25 155/79 100 05/09/17 08:00 67 05/09/17 06:00 85 157/80 123/68 05/09/17 06:00 65 05/09/17 04:12 100 40 05/09/17 04:00 98.7 75 24 153/77 100 05/09/17 04:00 74 05/09/17 04:00 40 05/09/17 02:00 74 05/09/17 00:20 100 40 05/09/17 00:00 74 05/09/17 00:00 98.0 74 24 132/59 100 05/09/17 00:00 40 05/08/17 22:00 87 05/08/17 20:43 100 40 05/08/17 20:00 82 05/08/17 20:00 98.0 91 25 145/65 100 05/08/17 20:00 40 05/08/17 18:00 82 05/08/17 18:00 85 127/52 99/57 05/08/17 17:16 97 40 05/08/17 16:00 45 05/08/17 16:00 97.5 89 22 110/59 99 05/08/17 16:00 65 05/08/17 14:07 100 40 05/08/17 14:00 89 05/08/17 13:15 99 100 05/08/17 13:00 45 05/08/17 12:00 98.3 77 23 154/67 98 05/08/17 12:00 77 (Edna Nicole) -: 05/09/17 0530 05/09/17 0530 Imaging Last [address] 05/09/17 0800 Signed Impressions: Service Date/Time: Tuesday, May 09, 2017 08:46 - CONCLUSION: 1. Stable areas of acute intraparenchymal hemorrhage within the right temporal and parietal lobes with the largest area measuring 3 cm. Extensive cytotoxic edema is also noted throughout the right middle cerebral artery distribution and is stable. There is persistent herniation of the right temporal, parietal and frontal lobes through the right craniectomy defect which is stable. Nam Rivas MD Head CT 05/08/17 0000 Signed Impressions: Service Date/Time: Monday, May 08, 2017 13:20 - CONCLUSION: Evolving subacute right middle cerebral artery distribution infarct. 3.2 cm acute parenchymal hemorrhage has developed within the infarcted and herniated right temporal lobe. Minimal midline shift. Juancho Doaln MD Chest X-Ray 05/08/17 0000 Signed Impressions: Service Date/Time: Monday, May 08, 2017 11:52 - CONCLUSION: 1. New right subclavian central venous catheter with tip at the atriocaval junction. No pneumothorax. 2. Unchanged other lines and tubes, including a left internal jugular central venous catheter with tip in the right atrium. 3. Left greater than right basilar consolidation, both sides improved. Juancho Dolan MD Brain MRI 05/07/17 0000 Signed Impressions: Service Date/Time: Sunday, May 07, 2017 10:19 - CONCLUSION: Interval improvement. Significant hemorrhagic inversion remains in the deep white matter structures involving head of the caudate globus pallidus, anterior limb of internal capsule and part of the posterior limb. There are no new areas of ischemia. There are scattered areas of lenticular type hemorrhage involving the cortical surface of the left sylvian region that is new from the comparison study. There is no evidence for an evolving infarct in the left hemisphere. Phuc Younger MD FACR Tubes & Lines: Head Tubes & Lines Comment A line right radial; TLC right IJ (Corey,Edna B. DIST[employer]ED [employer]ATION PROJECT MANAGER) Physical Exam General Appearance: Well Developed, Comfortable, Sleeping (Edna Nicole [employer]ED [employer] PROJECT MANAGER) Eyes Eye Exam: Pupils Equal (Edna Nicole [employer]ED [employer] PROJECT MANAGER) Throat Throat Exam: Oral Mucosa [place] & Moist (Edna Nicole [employer]ED [employer] PROJECT MANAGER) Neck Neck Exam: Neck Supple (Edna Nicole [employer]ED [employer] PROJECT MANAGER) Pulmonary Resp Exam: No Distress, Rhonchi, Decreased Bases Resp Remarks intubated, vented lung sounds (Edna Nicole [employer]ED [employer] MANAGER) Cardiology CV Exam: Regular, Normal Sinus Rhythm (Edna Nicole [employer]ED [employer] MANAGER) Gastrointestinal/Abdomen GI Exam: Soft, Non-Tender, Bowel Sounds Present (Edna Nicole [employer]ED [employer] MANAGER) Musculoskeletal MS Exam: Joints Intact, Good Strength (Edna Nicole) Integumentary Skin Exam: Warm, Dry (Edna Nicole [employer]ED [employer] MANAGER) Extremeties Extremities Exam: No Edema, Pedal Pulses Palpable (Edna Nicole) Neurologic Neuro Exam: Unresponsive (Edna Nicole) Assessment/Plan Discussed Condition With: Son Assessment Summary: FADUMO/Acute Renal Failure Problem List: (1) FADUMO (acute kidney injury) Plan: In a pt with normal renal function at baseline renal function has improved FADUMO likely due to hypotension and decreased renal perfusion, may have progressed to ATN her urine output is adequate replace potassium IV she is off diuretics daily renal panel (2) CVA (cerebral vascular accident) Plan: neurosurgery following, s/p crani unsure what long line teamster prognosis is CT head today showing continued cerebral edema permissive hypernatremia, goal 155mg/dL, begin D5W at 75cc/hr, check serum Na Q6h (3) Fluid overload Plan: improved, now with negative fluid balance off bumex gtt (4) Anemia Plan: blood transfusion ordered (Edna Nicole) Plan patient was seen and examined. GFR is better. Replace potassium. Started D5W because of extreme hypernatremia. Discussed with Dr. Acuan. When serum Na improves to about 155, to stop D5W. (Rohit Bains MD) Problem Qualifiers (1) CVA (cerebral vascular accident): Qualified Code: I63.9 - Cerebrovascular accident (CVA), unspecified mechanism Edna Nicole May 09, 2017 11:15 Rohit Bains MD May 10, 2017 14:51
--- NOTE | 2017-05-09 11:40 | PD.ONC.PN ---
Subjective Subjective Remarks Afebrile overnight. Patient intubated, sedated. No family members at bedside. Per nurse no overnight events. No obvious bleeding. Objective Data Date Time Temp Pulse Resp B/P Pulse Ox O2 Delivery O2 Flow Rate FiO2 05/09/17 10:00 67 05/09/17 09:33 40 05/09/17 09:29 100 40 05/09/17 09:04 100 100 05/09/17 08:00 40 05/09/17 08:00 98.9 67 25 155/79 100 05/09/17 08:00 67 05/09/17 06:00 85 157/80 123/68 05/09/17 06:00 65 05/09/17 04:12 100 40 05/09/17 04:00 98.7 75 24 153/77 100 05/09/17 04:00 74 05/09/17 04:00 40 05/09/17 02:00 74 05/09/17 00:20 100 40 05/09/17 00:00 74 05/09/17 00:00 98.0 74 24 132/59 100 05/09/17 00:00 40 05/08/17 22:00 87 05/08/17 20:43 100 40 05/08/17 20:00 82 05/08/17 20:00 98.0 91 25 145/65 100 05/08/17 20:00 40 05/08/17 18:00 82 05/08/17 18:00 85 127/52 99/57 05/08/17 17:16 97 40 05/08/17 16:00 45 05/08/17 16:00 97.5 89 22 110/59 99 05/08/17 16:00 65 05/08/17 14:07 100 40 05/08/17 14:00 89 05/08/17 13:15 99 100 05/08/17 13:00 45 05/08/17 12:00 98.3 77 23 154/67 98 05/08/17 12:00 77 05/09/17 05/09/17 05/09/17 07:00 15:00 23:00 Intake Total 1254 ml Output Total 1150 ml Balance 104 ml Result Diagram: 05/09/1730 05/09/1730 Laboratory Results Laboratory Tests Test 05/08/17 05/08/17 05/08/17 6/12/17 12:15 15:30 16:34 04:49 Sodium Level 160 MEQ/L Potassium Level 2.6 MEQ/L Chloride Level 119 MEQ/L Carbon Dioxide Level 32.0 MEQ/L Anion Gap 9 MEQ/L Blood Urea Nitrogen 75 MG/DL Creatinine 2.47 MG/DL Estimat Glomerular Filtration 21 ML/MIN Rate Random Glucose 117 MG/DL Calcium Level 8.6 MG/DL Magnesium Level 3.5 MG/DL White Blood Count 19.8 TH/MM3 Red Blood Count 2.48 MIL/MM3 Hemoglobin 7.4 GM/DL Hematocrit 23.7 % Mean Corpuscular Volume 95.9 FL Mean Corpuscular Hemoglobin 29.9 PG Mean Corpuscular Hemoglobin 31.2 % Concent Red Cell Distribution Width 15.6 % Platelet Count 181 TH/MM3 Mean Platelet Volume 11.1 FL Neutrophils (%) (Auto) 89.9 % Lymphocytes (%) (Auto) 6.2 % Monocytes (%) (Auto) 3.7 % Eosinophils (%) (Auto) 0.0 % Basophils (%) (Auto) 0.2 % Neutrophils # (Auto) 17.7 TH/MM3 Lymphocytes # (Auto) 1.2 TH/MM3 Monocytes # (Auto) 0.7 TH/MM3 Eosinophils # (Auto) 0.0 TH/MM3 Basophils # (Auto) 0.0 TH/MM3 CBC Comment AUTO DIFF Differential Total Cells 100 Counted Neutrophils % (Manual) 71 % Band Neutrophils % 24 % Lymphocytes % 4 % Monocytes % 1 % Neutrophils # (Manual) 18.8 TH/MM3 Differential Comment FINAL DIFF MANUAL Platelet Estimate NORMAL Platelet Morphology Comment NORMAL Red Cell Morphology Comment NORMAL Prothrombin Time 12.4 SEC Prothromb Time International 1.1 RATIO Ratio Activated Partial 24.6 SEC Thromboplast Time Serum Osmolality 362 MOSM/KG Total Bilirubin 0.5 MG/DL Direct Bilirubin 0.2 MG/DL Indirect Bilirubin 0.3 MG/DL Aspartate Amino Transf 37 U/L (AST/SGOT) Alanine Aminotransferase 30 U/L (ALT/SGPT) Alkaline Phosphatase 105 U/L Total Protein 6.9 GM/DL Albumin 3.1 GM/DL Blood Gas Puncture Site ART LINE ART LINE Blood Gas Patient Temperature 98.6 98.6 Blood Gas HCO3 27 mmol/L 24 mmol/L Blood Gas Base Excess 3.2 mmol/L 0.0 mmol/L Blood Gas Oxygen Saturation 96 % 97 % Arterial Blood pH 7.44 7.44 Arterial Blood Partial 41 mmHg 36 mmHg Pressure CO2 Arterial Blood Partial 111 mmHg 173 mmHg Pressure O2 Arterial Blood Oxygen Content 10.6 Vol % 9.6 Vol % Arterial Blood 1.0 % 1.1 % Carboxyhemoglobin Arterial Blood Methemoglobin 1.3 % 1.2 % Blood Gas Hemoglobin 7.8 G/DL 6.7 G/DL Oxygen Delivery Device VENTILATOR VENTILATOR Blood Gas Ventilator Setting PRVC/AC PRVC/AC 400/22/ Blood Gas Inspired Oxygen 40 % 40 % Test 05/09/17 05:30 White Blood Count 17.4 TH/MM3 Red Blood Count 2.26 MIL/MM3 Hemoglobin 6.9 GM/DL Hematocrit 21.6 % Mean Corpuscular Volume 95.4 FL Mean Corpuscular Hemoglobin 30.5 PG Mean Corpuscular Hemoglobin 32.0 % Concent Red Cell Distribution Width 15.5 % Platelet Count 204 TH/MM3 Mean Platelet Volume 10.6 FL Sodium Level 162 MEQ/L Potassium Level 2.6 MEQ/L Chloride Level 124 MEQ/L Carbon Dioxide Level 27.9 MEQ/L Anion Gap 10 MEQ/L Blood Urea Nitrogen 72 MG/DL Creatinine 2.00 MG/DL Estimat Glomerular Filtration 27 ML/MIN Rate Random Glucose 105 MG/DL Calcium Level 8.5 MG/DL Phosphorus Level 3.5 MG/DL Magnesium Level 3.4 MG/DL Culture Results Microbiology Date/Time Procedure Status Source Growth 05/08/17 10:35 Urine Culture Received Urine Catheterized Urine Pending Imaging Studies Last [address] 05/09/17 0800 Signed Impressions: Service Date/Time: Tuesday, May 09, 2017 08:46 - CONCLUSION: 1. Stable areas of acute intraparenchymal hemorrhage within the right temporal and parietal lobes with the largest area measuring 3 cm. Extensive cytotoxic edema is also noted throughout the right middle cerebral artery distribution and is stable. There is persistent herniation of the right temporal, parietal and frontal lobes through the right craniectomy defect which is stable. Nam Rivas MD Administered Medications Medications (Trade) Dose Ordered Sig/Elida Route PRN Reason Start Time Stop Time Status Last Admin Dose Admin Dextrose (D50w (Vial) Inj) 25 ml UNSCH PRN IV PUSH HYPOGLYCEMIA-SEE COMMENTS 04/26/17 14:15 05/03/17 06:49 Pantoprazole Sodium (Protonix Inj) 40 mg DAILY IV 04/27/17 09:00 05/09/17 10:11 Chlorhexidine Gluconate (Chlorhexidine 2% Cloth) Taper DAILY@04 TOP 04/27/17 04:00 04/23/18 03:59 05/09/17 03:36 Senna/Docusate Sodium (Avelina-Colace) 1 tab BID PO 04/26/17 21:00 05/08/17 21:25 Labetalol HCl (Trandate Inj) 20 mg Q15M PRN IV PUSH sbp > 160 04/26/17 15:30 05/08/17 06:45 Hydralazine HCl 10 mg 10 mg Q30M PRN IV PUSH sbp > 160 04/26/17 15:30 05/09/17 10:11 Levetriacetam/ Sodium Chloride (Keppra Inj/NS Inj) 105 ml @ 400 mls/hr Q12H IV 04/27/17 21:00 05/09/17 10:11 Bisacodyl (Dulcolax Supp) 10 mg DAILY PRN RECTAL CONSTIPATION 04/27/17 10:30 05/01/17 08:29 Docusate Sodium (Colace) 100 mg BID PO 04/27/17 21:00 05/08/17 21:26 Calcium Gluconate 1 gm 1 gm UNSCH PRN IV SEE LABEL COMMENTS 04/27/17 10:30 04/30/17 19:04 Potassium Chloride 100 ml @ 50 mls/hr UNSCH PRN IV POTASSIUM LESS THAN 4 04/27/17 10:30 05/08/17 14:40 Magnesium Sulfate/ Sodium Chloride (Magnesium Sulfate Inj/NS Inj) 108 ml @ 108 mls/hr UNSCH PRN IV MAGNESIUM LESS THAN 2 04/27/17 10:30 05/01/17 17:56 Morphine Sulfate (Morphine Inj) 2 mg Q2H PRN IV PUSH PAIN SCALE 1 TO 6 04/27/17 10:30 05/07/17 23:02 Morphine Sulfate (Morphine Inj) 4 mg Q2H PRN IV PUSH PAIN SCALE 7 TO 10 04/27/17 10:30 05/08/17 21:25 Chlorhexidine Gluconate (Peridex 0.12% Liq) 15 ml BID@08,20 MT 04/27/17 20:00 05/09/17 07:56 Artificial Tears (Lacrilube Opht Oint) APPLY UNDER BOTH EYELIDS BID EACH EYE 04/28/17 21:00 05/09/17 10:11 Sodium Chloride (NS Flush) 2 ml UNSCH PRN IV FLUSH SEE LABEL COMMENTS 04/28/17 11:15 05/08/17 08:47 Artificial Tears 1 applic 1 applic Q4H PRN EACH EYE SEE LABEL COMMENTS 04/28/17 11:15 05/08/17 23:34 Phenylephrine HCl/ Sodium Chloride (Neosynephrine Inj/NS 500 ml Inj) 500 ml @ 0 mls/hr TITRATE IV 05/01/17 15:00 05/06/17 05:55 Acetaminophen 1000 mg 1,000 mg Q6H PRN IV temp > 37 05/02/17 09:45 05/09/17 10:11 Piperacillin Sod/ Tazobactam Sod (Zosyn 3.375 Gm Premix) 50 ml @ 100 mls/hr Q6H IV 05/05/17 16:00 05/09/17 10:12 Metoclopramide HCl (Reglan Inj) 5 mg Q8H IV PUSH 05/06/17 00:00 05/08/17 23:33 Amantadine HCl (Symmetrel Liq) 200 mg BID@07,12 PO 05/07/17 07:00 05/08/17 12:37 Hydrocortisone Sodium Succinate (SoluCORTEF INJ) 50 mg Q12HR IV PUSH 05/08/17 09:00 05/09/17 10:12 Water 200 ml 200 ml Q6HR PO 05/08/17 07:17 05/09/17 08:21 Potassium Chloride 100 ml @ 25 mls/hr ONCE ONCE IV 05/09/17 08:00 05/09/17 11:59 05/09/17 07:55 Potassium Chloride (KCl 40 Meq Premix Inj) 100 ml @ 25 mls/hr ONCE ONCE IV 05/09/17 11:00 05/09/17 14:59 05/09/17 10:12 Objective Remarks GENERAL: Young woman, lying supine in bed intubated, sedated SKIN: Warm and dry. HEAD: Normocephalic. EYES: No injection or drainage. NECK: Supple, trachea midline. CARDIOVASCULAR: Regular rate and rhythm RESPIRATORY: anterior oquendo clear. on mechanical ventilation. GASTROINTESTINAL: Abdomen nondistended. EXTREMITIES: No cyanosis NEUROLOGICAL: intubated, sedated Assessment/Plan Problem List: (1) CVA (cerebral vascular accident) Status: Acute Plan: 05/09: await antithrombin III. monitor clinical status. --Massive acute MCA, status post t-PA, status post thrombectomy, status post decompressive craniotomy with cranioplasty. --no Factor V Leiden mutation. --prothrombin gene mutation negative. --no lupus anticoagulant. --protein C and S are normal. --Phospholipid antibodies negative. --Antithrombin III pending. Assessment 42y/o female admitted with CVA, s/p t-PA Hematology consulted for prolonged PTT and question of hypercoagulable state. History (from initial consult): cerebral angiogram showed proximal right M1 occlusion consistent with findings on the CAT scan. --patient developed laceration of the femoral artery which was repaired by Dr. Chandler. Subsequent to that the patient's neurological condition deteriorated. MRI of the brain showed evolving right hemispheric stroke with prominent edema. The patient had developed severe mass effect and midline shift and required decompressive craniotomy and cranioplasty which was performed by Dr. Nathan on April 27. Attending Statement Patient is Sedated and on the ventilator No bleeding noted PTT is normal Rest of the Hyper coag panel is still Pending The exam, history, and the medical decision-making described in the above note were completed with the assistance of the mid-level provider. I reviewed and agree with the findings presented. I attest that I had a [id number] encounter with the patient on the same day, and personally performed and documented my assessment and findings in the medical record. Problem Qualifiers (1) CVA (cerebral vascular accident): Qualified Code: I63.9 - Cerebrovascular accident (CVA), unspecified mechanism Yue Castorena May 09, 2017 11:40 Ruddy Ward MD May 09, 2017 23:54
[2017-05-09] MEDS: DEXTROSE 5% IN WATE 1000ML INJ 1,000 ML IV SCH (14:04)
--- NOTE | 2017-05-09 16:15 | HHI.CCPN ---
Subjective Remarks/Hospital Course This is a 42yF with unremarkable past medical history who presents to the [facility] emergency department with new-onset left-sided weakness and slurred speech. She is an employee of [email or web address] who had a witnessed onset of her symptoms at 12:45pm. In the [facility] ED she was immediately taken for non-contrasted head CT which was negative for acute hemorrhage. She was given iv tpa which was instituted 36 minutes after arrival, per my conversation with the accounting coordinator. She was then emergently transferred to [facility]. CT angiography demonstrated acute right m1 cut-off. She was taken by [facility] and arrived directly to the IR suite, where I met and evaluated the patient. Due to the acute nature of her illness and her dysarthria, a complete history is not obtainable. She does endorse right-sided headache, although denied any chest pain, shortness of breath. 04/27: Back from OR after right craniectomy for decompression s/p left MCA CVA. Heavily sedated. Some new history from a co-worker indicates that patient started taking oral contraceptive 2 months ago. 04/28: Continued problems with cerebral edema as expected. Push osmolality a little higher and restrict fluid. Tolerate pH mildly acidotic to avoid cerebral vascular constriction. 04/29: Osmolality in good range. ICP controlled. Hypothermia to 34 degrees. Raise to 35 slowly as long as ICP is acceptable. Unable to start tube feeds yet as gut motility will be poor at cooler temperature. 04/30: ICP control good. Osmolality acceptable. Temp to 35 degrees. 05/01: Raise temp to 36 degrees and hold. CXR with light basilar infiltrates, no leukocytosis. Heavily sedated for brain protection/ICP control. Persistent blood sugars 60s range - will start D5/NS at 30/hr. 05/02: vasopressor requirement uptrending. wbc uptrending as well. repeat head ct with persistent edema, although ICPs slightly improved. 05/03: slight improvement in vasopressors and lactate with ivf resuscitation. however, still persists on high doses of multiple vasopressors. ICPs stable. off versed. sputum growing chowdhury-sensitive e-coli. I performed critical care bedside echo this morning which demonstrated preserved biventricular function, no significant valvular lesions, ivc with 20% variability and measures at 1.6cm. by echo appears clinically euvolemic. 05/04: vasopressors significantly improved throughout the night. but remains on two vasopressors. this morning, cvp climbing. weaning off sedation. bolt removed. icp's controlled. still poor neurologic exam, despite weaning off sedation. (delayed note entry. seen and evaluated at 06:20am). 05/05: patient seen and evaluated at 06:15am. almost off vasopressors. however, renal function significantly worse. patient is non-oliguric, but failing to diurese fast enough for rising filling pressures. FIO2 up to 100% this morning. CXR with evidence of volume overload. bedside ultrasound of the lungs demonstrate trace pleural effusions with densely consolidated lung oquendo. echo with dilated ivc without respiratory variation, RVSP ~50 mmHg based on trace TR jet. preserved LV and RV function. neuro exam remains poor. 05/06: diuresed > 8L uop overnight. fio2 down to 60%. Cr stabilized. Nephrology consulted. neuro exam still poor. 05/07: continues to diurese, >7L/24h. fio2 still at 50%. Cr stable. neuro exam: starting to withdraw x 4. MRI today without evidence of new infarction on the left. 05/08: slowly improving neurologic exam. fio2 improved as well. continues to diurese, and almost at dry weight. wbc uptrending and low-grade fever. remains on broad spectrum abx. 05/09: Remains encephalopathic off sedation, orally intubated on mechanical ventilation. One unit PRBCs ordered this morning for hemoglobin 6.9. No melena or rectal bleeding per RN. Objective Vital Signs Date Time Temp Pulse Resp B/P Pulse Ox O2 Delivery O2 Flow Rate FiO2 05/09/17 15:28 100 40 05/09/17 12:00 78 05/09/17 08:00 98.9 25 155/79 05/08/17 08:20 Ventilator Intake and Output 05/08/17 05/08/17 05/09/17 08:00 16:00 00:00 Intake Total 730 ml 933 ml 1241 ml Output Total 2900.0 ml 2000.0 ml 1350 ml Balance -2170.0 ml -1067.0 ml -109 ml Result Diagram: 05/09/17 0530 05/09/17 0530 Other Results Laboratory Tests Test 05/08/17 05/09/17 05/09/17 05/09/17 16:34 04:49 05:30 10:58 Blood Gas Puncture Site ART LINE ART LINE Blood Gas Patient Temperature 98.6 98.6 Blood Gas HCO3 27 mmol/L 24 mmol/L Blood Gas Base Excess 3.2 mmol/L 0.0 mmol/L Blood Gas Oxygen Saturation 96 % 97 % Arterial Blood pH 7.44 7.44 Arterial Blood Partial 41 mmHg 36 mmHg Pressure CO2 Arterial Blood Partial 111 mmHg 173 mmHg Pressure O2 Arterial Blood Oxygen Content 10.6 Vol % 9.6 Vol % Arterial Blood 1.0 % 1.1 % Carboxyhemoglobin Arterial Blood Methemoglobin 1.3 % 1.2 % Blood Gas Hemoglobin 7.8 G/DL 6.7 G/DL Oxygen Delivery Device VENTILATOR VENTILATOR Blood Gas Ventilator Setting PRVC/AC PRVC/AC 400/22/ Blood Gas Inspired Oxygen 40 % 40 % White Blood Count 17.4 TH/MM3 Red Blood Count 2.26 MIL/MM3 Hemoglobin 6.9 GM/DL Hematocrit 21.6 % Mean Corpuscular Volume 95.4 FL Mean Corpuscular Hemoglobin 30.5 PG Mean Corpuscular Hemoglobin 32.0 % Concent Red Cell Distribution Width 15.5 % Platelet Count 204 TH/MM3 Mean Platelet Volume 10.6 FL Sodium Level 162 MEQ/L Potassium Level 2.6 MEQ/L Chloride Level 124 MEQ/L Carbon Dioxide Level 27.9 MEQ/L Anion Gap 10 MEQ/L Blood Urea Nitrogen 72 MG/DL Creatinine 2.00 MG/DL Estimat Glomerular Filtration 27 ML/MIN Rate Random Glucose 105 MG/DL Calcium Level 8.5 MG/DL Phosphorus Level 3.5 MG/DL Magnesium Level 3.4 MG/DL Blood Type A POSITIVE Antibody Screen NEGATIVE Crossmatch Leukocyte-Reduced Red Blood Cells Blood Bank Comment Imaging Last [address] 05/09/17 0800 Signed Impressions: Service Date/Time: Tuesday, May 09, 2017 08:46 - CONCLUSION: 1. Stable areas of acute intraparenchymal hemorrhage within the right temporal and parietal lobes with the largest area measuring 3 cm. Extensive cytotoxic edema is also noted throughout the right middle cerebral artery distribution and is stable. There is persistent herniation of the right temporal, parietal and frontal lobes through the right craniectomy defect which is stable. aNm Rivas MD Head CT 05/08/17 0000 Signed Impressions: Service Date/Time: Monday, May 08, 2017 13:20 - CONCLUSION: Evolving subacute right middle cerebral artery distribution infarct. 3.2 cm acute parenchymal hemorrhage has developed within the infarcted and herniated right temporal lobe. Minimal midline shift. Juancho Dolan MD Chest X-Ray 05/08/17 0000 Signed Impressions: Service Date/Time: Monday, May 08, 2017 11:52 - CONCLUSION: 1. New right subclavian central venous catheter with tip at the atriocaval junction. No pneumothorax. 2. Unchanged other lines and tubes, including a left internal jugular central venous catheter with tip in the right atrium. 3. Left greater than right basilar consolidation, both sides improved. Juancho Dolan MD Last 24 hours Impressions Chest X-Ray 05/05/17 0000 Signed Impressions: Service Date/Time: April 03:59 - CONCLUSION: Prominent bibasilar infiltrates. Tubes and catheters are all in good position Bertin White MD Objective Remarks gen: middle-aged female, lying in bed, encephalopathic heent: mild facial edema resolving. neck: trachea midline. orally intubated. chest: coarse crackles at the bases, improved from yesterday, good air movement equal chest rise. PCO2 control good. fio2 40%. peep 8. cv: normal rate, regular rhythm. sinus by tele. - JVD. no m,r abd: soft, nontender, nondistended. no guarding. extr: no peripheral edema. distal pulses palpable, well perfused. neuro: RASS -4;. pupils are now 3mm, equal and reactive. withdraws x 4. is now almost purposeful with the LUE. weak cough. A/P Assessment and Plan Assessment: 42yF with acute right M1 MCA CVA now s/p systemic TPA and attempted interventional mechanical thrombectomy. Her course is complicated by malignant cerebral edema requiring decompressive craniectomy and therapeutic hypothermia. She remains with cerebral edema, very critically ill, off pressors now. First evidence of slight neuro improvement, although overall neuro exam is poor. Now almost at dry weight.Off aggressive forced diuresis and attempt to maintain euvolemia to a slightly negative balance today. will start to gently normalize sodium as well. Trach/peg is reasonable as her neuro exam begins to slowly improve. She still remains very critically ill, however, with ongoing end organ dysfunction and off pathway. Plan by Systems: Neuro: Acute right M1 MCA CVA s/p systemic TPA and endovascular thrombectomy Dysarthria Left-sided hemiparesis Left-sided facial droop Malignant Cerebral Edema s/p Decompressive Craniectomy Elevated ICP -- q1h neuro checks -- wean sedation to obtain neuro exam. -- continue to hold all sedation. -- repeat EEG 05/04: generalized slowing. ?ictal focus over right hemisphere. -- repeat head CT 05/02, 05/04: stable edema, slightly enlarged left lateral ventricle, evolving right hemispheric cva. Head CT 05/08 and 05/09 with right temporopareital 3cm intraparenchymal hemorrhage in herniated area. Neurosurgery following. -- stop hyperosmolar therapy. slowly normalize sodium. -- serial bmps -- SBP goal 110 - 160. -- keppra for seizure ppx Respiratory: Acute hypoxic and Hypercarbic respiratory failure --Daily C Pap trials as tolerated. Unable to protect airway currently and will need a tracheostomy. -- wean fio2 for goal spo2 > 90% -- vent bundle -- elevated HOB Cardiovascular Septic Shock- resolved Adrenal Insufficiency Acute intravascular volume overload -- goal sbp 110 - 160 -- off vasopressors. -- cvp monitoring. Renal: Acute Kidney Injury -- likely multifactorial at this point including ATN. . -- continue ribera with strict i/o's -- Sodium up to 162. Nephrology started D5, will hold when sodium gets closer to 155. -- Off bumex drip/ Diamox since 05/08 FEN/GI Acute protein calorie malnutrition- mild Hypernatremia Lactic Acidosis- resolved. Anion-gap metabolic acidosis- resolved. Metabolic Alkalosis secondary to intravascular contraction -- TF, nepro. -- ICU electrolyte protocol -- daily bmp, mg, phos. -- diamox 500mg iv q8h - stopped 05/08 -- Free water per tube: 200 q6h. Nephrology started D5W, will stop when sodium gets to 155. Heme/ID: Anemia secondary to acute blood loss Leukocytosis E. Coli Pneumonia, likely secondary to aspiration at time of stroke -- Zosyn, renally dosed, pulmonary source. -- sputum culture 05/01: e.coli, chowdhury sensitive -- urine, blood cultures 05/02 NGTD. -- daily cbc -- leukocytosis is concerning, CVL replaced 05/08, urine culture with Myla from 05/08, will replace Ribera and resend urine culture and start fluconazole 100 mg via OG tube daily on 05/09. On Zosyn day #8. Leukocytosis persists. Will consider stopping Zosyn following 10 days of therapy. Endo: Hypoglycemia- improved. Adrenal Insufficiency -- Off d10w, glycemic control improved. -- frequent glucose checks. -- out of shock. decrease hydrocortisone to 50 mg iv q12h. would plan on a very slow taper given degree of adrenal insufficiency with random cortisol in shock of 6. Prophy: -- SCDs -- pepcid iv for gi prophylaxis Lines: -- LIJ TLC-discontinued 05/08. Right subclavian central line placed 05/08 -- right radial art line 05/05 Overall impression: Large distribution right MCA CVA with shift required decompressive craniectomy 04/27 in an attempt to rescue the dominant hemisphere. She is critically ill with an unstable neurological process, along with multi organ system dysfunction at this point. This patient remains critically ill with one or more organ systems which are or may become a threat to life. I have spent in excess of 40 minutes discontinuously in the care and management of this patient. This time is exclusive of procedures, and includes, but is not limited to, evaluation of the patient, review of the medical record, discussions with family, consultants, nursing staff, or respiratory therapy, and documentation in the medical record. Casa Acuna MD May 09, 2017 16:15
[2017-05-09 17:01] LABS: BLOOD GAS BASE EXCESS -2.9 mmol/L (-2-2); BLOOD GAS CARBOXYHEMOGLOBIN 1.3 % (0-4); BLOOD GAS HCO3 21 mmol/L (22-26); BLOOD GAS METHEMOGLOBIN 1.2 % (0-2); BLOOD GAS O2 HGB SATURATION 97 % (90-100); BLOOD GAS OXYGEN CONTENT 11.2 Vol % (12.0-20.0); BLOOD GAS PCO2 33 mmHg (38-42); BLOOD GAS PO2 164 mmHg (61-120); BLOOD GAS TOTAL HGB 7.9 G/DL (12.0-16.0); TEMP CORR TO 98.6
[2017-05-09 17:02] LABS: CRITICAL VALUE YES; FIO2 40 %; OXYGEN DEVICE VENT
[2017-05-09 17:04] LABS: DRAW SITE ALINE; STAT NO
[2017-05-09 17:49] LABS: POTASSIUM 2.4 MEQ/L (3.5-5.1)
[2017-05-09] MEDS ORDERED: POTASSIUM CHLORIDE 25 MEQ EFFERVESCENT TAB PO ONE ×2 (18:00→20:00)
--- NOTE | 2017-05-09 20:17 | HHI.PR ---
Review/Management Diagnosis right MCA stroke, s/p iv tpa and thrombectomy of right M1 thrombus. Plan stop aspirin given the hemorrhage in right mca stroke. Diagnosis/Plan: Subjective Subjective Comments No acute events reported Active Medications Current Medications Medications (Trade) Dose Ordered Sig/Elida Route Start Time Stop Time Status Last Admin (D50w (Vial) Inj) 25 ml UNSCH PRN IV PUSH 04/26/17 14:15 05/03/17 06:49 (Protonix Inj) 40 mg DAILY IV 04/27/17 09:00 05/09/17 10:11 (Zofran Inj) 4 mg Q6H PRN IV 04/26/17 14:15 Miscellaneous Information 1 Q361D XX 04/26/17 14:15 (Chlorhexidine 2% Cloth) Taper DAILY@04 TOP 04/27/17 04:00 04/23/18 03:59 05/09/17 03:36 (Chlorhexidine 2% Cloth) 3 pack UNSCH PRN TOP 04/26/17 14:15 (Avelina-Colace) 1 tab BID PO 04/26/17 21:00 05/08/17 21:25 (Trandate Inj) 20 mg Q15M PRN IV PUSH 04/26/17 15:30 05/08/17 06:45 Hydralazine HCl 10 mg 10 mg Q30M PRN IV PUSH 04/26/17 15:30 05/09/17 10:11 (Keppra Inj/NS Inj) 105 ml @ 400 mls/hr Q12H IV 04/27/17 21:00 05/09/17 10:11 (Dulcolax Supp) 10 mg DAILY PRN RECTAL 04/27/17 10:30 05/01/17 08:29 (Colace) 100 mg BID PO 04/27/17 21:00 05/08/17 21:26 Calcium Gluconate 1 gm 1 gm UNSCH PRN IV 04/27/17 10:30 04/30/17 19:04 Potassium Chloride 100 ml @ 50 mls/hr UNSCH PRN IV 04/27/17 10:30 05/08/17 14:40 (Magnesium Sulfate Inj/NS Inj) 108 ml @ 108 mls/hr UNSCH PRN IV 04/27/17 10:30 05/01/17 17:56 (Morphine Inj) 2 mg Q2H PRN IV PUSH 04/27/17 10:30 05/07/17 23:02 (Morphine Inj) 4 mg Q2H PRN IV PUSH 04/27/17 10:30 05/08/17 21:25 (Peridex 0.12% Liq) 15 ml BID@08,20 MT 04/27/17 20:00 05/09/17 07:56 (Lacrilube Opht Oint) APPLY UNDER BOTH EYELIDS BID EACH EYE 04/28/17 21:00 05/09/17 10:11 Lorazepam 1 mg 1 mg Q1H PRN IV 04/28/17 11:15 Miscellaneous Information ml @ 0 mls/hr UNSCH IV 04/28/17 11:15 (NS Flush) 2 ml UNSCH PRN IV FLUSH 04/28/17 11:15 05/08/17 08:47 (NS Flush) 2 ml UNSCH PRN IV FLUSH 04/28/17 11:15 Artificial Tears 1 applic 1 applic Q4H PRN EACH EYE 04/28/17 11:15 05/08/17 23:34 (Neosynephrine Inj/NS 500 ml Inj) 500 ml @ 0 mls/hr TITRATE IV 05/01/17 15:00 05/06/17 05:55 Acetaminophen 1000 mg 1,000 mg Q6H PRN IV 05/02/17 09:45 05/09/17 10:11 (Zosyn 3.375 Gm Premix) 50 ml @ 100 mls/hr Q6H IV 05/05/17 16:00 05/09/17 18:01 (Reglan Inj) 5 mg Q8H IV PUSH 05/06/17 00:00 05/08/17 23:33 (Symmetrel Liq) 200 mg BID@07,12 PO 05/07/17 07:00 05/09/17 14:03 (SoluCORTEF INJ) 50 mg Q12HR IV PUSH 05/08/17 09:00 05/09/17 10:12 Water 200 ml 200 ml Q6HR PO 05/08/17 07:17 05/09/17 18:00 (D5W 1000 ml Inj) 1,000 ml @ 75 mls/hr [id number] IV 05/09/17 11:00 05/09/17 14:04 Fluconazole 100 mg 100 mg DAILY OG-TUBE 05/09/17 20:00 Potassium Chloride 100 ml @ 25 mls/hr ONCE ONCE IV 05/09/17 18:00 05/09/17 21:59 05/09/17 18:00 (KCl 40 Meq Premix Inj) 100 ml @ 25 mls/hr ONCE ONCE IV 05/09/17 22:00 05/10/17 01:59 Allergies Allergies Coded Allergies Shellfish (Verified Allergy, Unknown, 04/26/17) Exam I&O / VS 05/08/17 05/08/17 05/09/17 15:00 23:00 07:00 Intake Total 933 ml 1241 ml 1254 ml Output Total 2000 ml 1350 ml 1150 ml Balance -1067 ml -109 ml 104 ml IV Total 270 ml 836 ml 541 ml Tube Feeding 263 ml 285 ml 313 ml Other 400 ml 120 ml 400 ml Output Urine Total 1500 ml 950 ml 950 ml Stool Total 500 ml 400 ml 200 ml Tube Feeding Residual Discard 0 ml 0 ml Vital Signs Date Time Temp Pulse Resp B/P Pulse Ox O2 Delivery O2 Flow Rate FiO2 05/09/17 18:00 84 121/64 123/68 05/09/17 18:00 84 05/09/17 16:00 40 05/09/17 16:00 69 05/09/17 16:00 98.2 86 20 135/74 100 05/09/17 15:28 100 40 05/09/17 14:00 77 05/09/17 12:13 98 40 05/09/17 12:00 97.7 102 24 135/68 99 05/09/17 12:00 78 05/09/17 12:00 40 05/09/17 10:00 67 05/09/17 09:33 40 05/09/17 09:29 100 40 05/09/17 09:04 100 100 05/09/17 08:00 40 05/09/17 08:00 98.9 67 25 155/79 100 05/09/17 08:00 67 05/09/17 06:00 85 157/80 123/68 05/09/17 06:00 65 05/09/17 04:12 100 40 05/09/17 04:00 98.7 75 24 153/77 100 05/09/17 04:00 74 05/09/17 04:00 40 05/09/17 02:00 74 05/09/17 00:20 100 40 05/09/17 00:00 74 05/09/17 00:00 98.0 74 24 132/59 100 05/09/17 00:00 40 05/08/17 22:00 87 05/08/17 20:43 100 40 Exam Comments nonresponsive pupils 3 mm right nonreactive, 2 mm left and reactive, disconjugate gaze improved today does withdraw BLE Objective Micro and Labs Laboratory Tests Test 05/09/17 05/09/17 05/09/17 05/09/17 04:49 05:30 10:58 16:18 Blood Gas Puncture Site ART LINE Blood Gas Patient Temperature 98.6 Blood Gas HCO3 24 Blood Gas Base Excess 0.0 Blood Gas Oxygen Saturation 97 Arterial Blood pH 7.44 Arterial Blood Partial 36 Pressure CO2 Arterial Blood Partial 173 Pressure O2 Arterial Blood Oxygen Content 9.6 Arterial Blood 1.1 Carboxyhemoglobin Arterial Blood Methemoglobin 1.2 Blood Gas Hemoglobin 6.7 Oxygen Delivery Device VENTILATOR Blood Gas Ventilator Setting PRVC/AC Blood Gas Inspired Oxygen 40 White Blood Count 17.4 Red Blood Count 2.26 Hemoglobin 6.9 Hematocrit 21.6 Mean Corpuscular Volume 95.4 Mean Corpuscular Hemoglobin 30.5 Mean Corpuscular Hemoglobin 32.0 Concent Red Cell Distribution Width 15.5 Platelet Count 204 Mean Platelet Volume 10.6 Sodium Level 162 159 Potassium Level 2.6 2.4 Chloride Level 124 126 Carbon Dioxide Level 27.9 24.0 Anion Gap 10 9 Blood Urea Nitrogen 72 63 Creatinine 2.00 1.70 Estimat Glomerular Filtration 27 33 Rate Random Glucose 105 122 Calcium Level 8.5 8.2 Phosphorus Level 3.5 Magnesium Level 3.4 Blood Type A POSITIVE Antibody Screen NEGATIVE Crossmatch Leukocyte-Reduced Red Blood Cells Blood Bank Comment Test 05/09/17 16:55 Blood Gas Puncture Site MELVINA Blood Gas Patient Temperature 98.6 Blood Gas HCO3 21 Blood Gas Base Excess -2.9 Blood Gas Oxygen Saturation 97 Arterial Blood pH 7.42 Arterial Blood Partial 33 Pressure CO2 Arterial Blood Partial 164 Pressure O2 Arterial Blood Oxygen Content 11.2 Arterial Blood 1.3 Carboxyhemoglobin Arterial Blood Methemoglobin 1.2 Blood Gas Hemoglobin 7.9 Oxygen Delivery Device VENT Blood Gas Ventilator Setting Blood Gas Inspired Oxygen 40 Date/Time Procedure Status Source Growth 05/09/17 17:51 Urine Culture Received Urine Catheterized Urine Pending 05/09/17 17:51 Gram Stain Ordered Sputum Endotracheal Pending 05/09/17 17:51 Sputum Culture Ordered Sputum Endotracheal Pending 05/08/17 10:35 Urine Culture - Preliminary Resulted Urine Catheterized Urine Myla Albicans Santana Gomez PhD May 09, 2017 20:17
[2017-05-09] MEDS: ARTIFICIAL TEARS OPTH OINT 3.5 APPLIC/3.5 GM TUBO EACH EYE PRN (20:38)
[2017-05-09] MEDS: FLUCONAZOLE 100 MG TAB OG-TUBE SCH (20:47)
[2017-05-09 21:31] LABS: HEMATOCRIT 25.5 % (35.0-46.0); MEAN CELL VOLUME 94.7 FL (80.0-100.0); MEAN CORPUSCULAR HEMOGLOBIN 29.8 PG (27.0-34.0); MEAN CORPUSCULAR HGB CONC 31.5 % (32.0-36.0); PLATELET COUNT 248 TH/MM3 (150-450); RED BLOOD COUNT 2.69 MIL/MM3 (4.00-5.30); RED CELL DISTRIBUTION WIDTH 15.6 % (11.6-17.2); REVIEW FLAG FINAL; WHITE BLOOD COUNT 17.9 TH/MM3 (4.0-11.0)
[2017-05-09] MEDS: LABETALOL HCL 100 MG/20 ML VIAL IV PUSH PRN (22:57)
[2017-05-10] VITALS (18 sets, daily range): BP systolic 125–143; BP diastolic 67–82; PULSE 64–87; RESP 24–30; TEMP 98.3–99.5; O2SAT 99–100
[2017-05-10] MEDS: DEXTROSE 5% IN WATE 1000ML INJ 1,000 ML IV SCH (02:29)
[2017-05-10] MEDS: ACETAMINOPHEN 1000 MG/100 ML VIAL IV PRN ×4 (02:30→22:54)
[2017-05-10] MEDS: INSULIN NovoLIN REGULAR SUPPLEMENTAL SCALE SQ SCH ×5 (03:00→20:41)
[2017-05-10] MEDS: PIPERACIL-TAZO 3.375 GM PREMIX 50 ML IV SCH ×4 (03:25→22:55)
[2017-05-10] MEDS: MORPHINE SULFATE 4 MG/ML INJ IV PUSH PRN (03:25)
[2017-05-10] MEDS: CHLORHEXIDINE GLUCONATE 2 % 1 PACK (2 CLOTHS) TOP SCH (03:25)
[2017-05-10 05:30] LABS: HEMATOCRIT 23.3 % (35.0-46.0); MEAN CELL VOLUME 94.7 FL (80.0-100.0); MEAN CORPUSCULAR HGB CONC 31.7 % (32.0-36.0); PLATELET COUNT 225 TH/MM3 (150-450); RED BLOOD COUNT 2.46 MIL/MM3 (4.00-5.30); RED CELL DISTRIBUTION WIDTH 15.3 % (11.6-17.2); REVIEW FLAG FINAL
[2017-05-10 05:54] LABS: BICARBONATE 19.2 MEQ/L (21.0-32.0); MAGNESIUM 2.7 MG/DL (1.5-2.5); POTASSIUM 3.1 MEQ/L (3.5-5.1)
[2017-05-10] MEDS: FREE WATER PO SCH ×5 (06:00→22:55)
[2017-05-10] MEDS ORDERED: POTASSIUM PHOSPHATE MONOBASIC 500 MG TAB PO ONE (06:45)
[2017-05-10] MEDS: CHLORHEXIDINE 0.12% (ORAL KIT) 15 ML CUP MT SCH ×2 (08:00→20:00)
[2017-05-10] MEDS: levETIRAcetam INJ 500 MG in SODIUM CHLORIDE 0.9% INJ 100 ML IV SCH ×2 (08:16→20:40)
[2017-05-10] MEDS: HYDROCORTISONE SOD SUCCINATE 100 MG VIAL IV PUSH SCH ×2 (08:16→20:40)
[2017-05-10] MEDS: PANTOPRAZOLE SODIUM 40 MG VIAL IV SCH (08:16)
[2017-05-10] MEDS: FLUCONAZOLE 100 MG TAB OG-TUBE SCH (08:17)
[2017-05-10] MEDS: METOCLOPRAMIDE HCL 10 MG/2 ML VIAL IV PUSH SCH ×3 (08:17→22:55)
[2017-05-10] MEDS: DOCUSATE SODIUM 50 MG/SENNA 8.6 MG TAB PO SCH ×2 (08:17→20:41)
[2017-05-10] MEDS: AMANTADINE HCL SOLN 100 MG/10 ML UDC PO SCH ×2 (08:17→11:26)
[2017-05-10] MEDS: ARTIFICIAL TEARS OPTH OINT 3.5 APPLIC/3.5 GM TUBO EACH EYE SCH ×2 (08:18→20:40)
[2017-05-10] MEDS: DOCUSATE SODIUM 100 MG CAP PO SCH ×4 (09:00→22:55)
--- NOTE | 2017-05-10 09:44 | HHI.NPPN ---
Subjective General Problems: Anemia Renal Failure: Acute Interval History Renal function and sodium are better. Family at bedside. (Edna Nicole) Review of Systems General General Remarks unable to obtain (Edna Nicole) Objective Data Data 05/09/17 05/10/17 19:00 07:00 Intake Total 1492 ml 2735 ml Output Total 1000 ml 2100 ml Balance 492 ml 635 ml IV Total 669 ml 1609 ml Tube Feeding 423 ml 526 ml Other 400 ml 600 ml Output Urine Total 600 ml 1600 ml Stool Total 400 ml 500 ml Vital Signs Date Time Temp Pulse Resp B/P Pulse Ox O2 Delivery O2 Flow Rate FiO2 05/10/17 08:15 100 40 05/10/17 08:09 100 40 05/10/17 06:00 84 133/80 130/74 05/10/17 06:00 78 05/10/17 04:38 100 40 05/10/17 04:00 40 05/10/17 04:00 98.9 76 27 131/76 99 05/10/17 02:00 70 05/10/17 00:20 99 40 05/10/17 00:00 98.3 74 24 125/73 99 05/10/17 00:00 40 05/10/17 00:00 74 05/09/17 22:00 84 05/09/17 20:32 100 40 05/09/17 20:00 40 05/09/17 20:00 97 05/09/17 20:00 99.2 97 24 127/77 99 05/09/17 18:00 84 121/64 123/68 05/09/17 18:00 84 05/09/17 16:00 40 05/09/17 16:00 69 05/09/17 16:00 98.2 86 20 135/74 100 05/09/17 15:28 100 40 05/09/17 14:00 77 05/09/17 12:13 98 40 05/09/17 12:00 97.7 102 24 135/68 99 05/09/17 12:00 78 05/09/17 12:00 40 05/09/17 10:00 67 (Edna Nicole) -: 05/10/17 0520 05/10/17 0520 Microbiology 05/09/17 Gram Stain - Final, Resulted 05/09/17 Sputum Culture, Resulted Pending 05/09/17 Gram Stain, Ordered Pending 05/09/17 Sputum Culture, Ordered Pending 05/09/17 Urine Culture, Received Pending Imaging Last [address] 05/09/17 0800 Signed Impressions: Service Date/Time: Tuesday, May 09, 2017 08:46 - CONCLUSION: 1. Stable areas of acute intraparenchymal hemorrhage within the right temporal and parietal lobes with the largest area measuring 3 cm. Extensive cytotoxic edema is also noted throughout the right middle cerebral artery distribution and is stable. There is persistent herniation of the right temporal, parietal and frontal lobes through the right craniectomy defect which is stable. Nam Rivas MD Head CT 05/08/17 0000 Signed Impressions: Service Date/Time: Monday, May 08, 2017 13:20 - CONCLUSION: Evolving subacute right middle cerebral artery distribution infarct. 3.2 cm acute parenchymal hemorrhage has developed within the infarcted and herniated right temporal lobe. Minimal midline shift. Juancho Dolan MD Chest X-Ray 05/08/17 0000 Signed Impressions: Service Date/Time: Monday, May 08, 2017 11:52 - CONCLUSION: 1. New right subclavian central venous catheter with tip at the atriocaval junction. No pneumothorax. 2. Unchanged other lines and tubes, including a left internal jugular central venous catheter with tip in the right atrium. 3. Left greater than right basilar consolidation, both sides improved. Juancho Dolan MD Tubes & Lines: Head Tubes & Lines Comment A line right radial; TLC right IJ (Edna Nicole) Physical Exam General Appearance: Well Developed, Comfortable, Sleeping (Edna Nicole) Eyes Eye Exam: Pupils Equal (Edna Nicole) Throat Throat Exam: Oral Mucosa [place] & Moist (Edna Nicole) Neck Neck Exam: Neck Supple (Edna Nicole) Pulmonary Resp Exam: No Distress, Rhonchi, Decreased Bases Resp Remarks intubated, vented lung sounds (Edna Nicole) Cardiology CV Exam: Regular, Normal Sinus Rhythm (Edna Nicole) Gastrointestinal/Abdomen GI Exam: Soft, Non-Tender, Bowel Sounds Present (Edna Nicole) Musculoskeletal MS Exam: Joints Intact, Good Strength (Edna Nicole) Integumentary Skin Exam: Warm, Dry (Edna Nicole) Extremeties Extremities Exam: No Edema, Pedal Pulses Palpable (Edna Nicole) Neurologic Neuro Exam: Unresponsive (Edna Nicole) Assessment/Plan Discussed Condition With: Relative Assessment Summary: FADUMO/Acute Renal Failure Electrolyte Assessment: Hypernatremia Problem List: (1) FADUMO (acute kidney injury) Plan: In a pt with normal renal function at baseline renal function improving FADUMO likely due to hypotension and decreased renal perfusion, may have progressed to ATN her urine output is adequate continue to replace potassium, also replaced phosphorus she is off diuretics obtain daily renal panel (2) CVA (cerebral vascular accident) Plan: neurosurgery following, s/p crani unsure what rn long term care prognosis is CT head showing continued cerebral edema permissive hypernatremia, goal 155mg/dL, continue D5W at 75cc/hr, check serum Na Q6h (3) Fluid overload Plan: improved, now with negative fluid balance off diuretics (4) Anemia Plan: persistent anemia despite blood transfusions (Edna Nicole) Plan patient was seen and examined. Agree with above assessment and plan. D5W can be stopped. (Rohit Bains MD) Problem Qualifiers (1) CVA (cerebral vascular accident): Qualified Code: I63.9 - Cerebrovascular accident (CVA), unspecified mechanism Edna Nicole May 10, 2017 09:44 Rohit Bains MD May 10, 2017 15:04
--- NOTE | 2017-05-10 10:07 | PD.ONC.PN ---
Subjective Subjective Remarks Afebrile overnight. patient intubated, sedated. Hgb with slight drop overnight, but no obvious bleeding per nursing staff. No overnight events. Objective Data Date Time Temp Pulse Resp B/P Pulse Ox O2 Delivery O2 Flow Rate FiO2 05/10/17 08:15 100 40 05/10/17 08:09 100 40 05/10/17 08:00 98.3 64 27 138/72 100 05/10/17 08:00 78 05/10/17 08:00 40 05/10/17 06:00 84 133/80 130/74 05/10/17 06:00 78 05/10/17 04:38 100 40 05/10/17 04:00 40 05/10/17 04:00 98.9 76 27 131/76 99 05/10/17 02:00 70 05/10/17 00:20 99 40 05/10/17 00:00 98.3 74 24 125/73 99 05/10/17 00:00 40 05/10/17 00:00 74 05/09/17 22:00 84 05/09/17 20:32 100 40 05/09/17 20:00 40 05/09/17 20:00 97 05/09/17 20:00 99.2 97 24 127/77 99 05/09/17 18:00 84 121/64 123/68 05/09/17 18:00 84 05/09/17 16:00 40 05/09/17 16:00 69 05/09/17 16:00 98.2 86 20 135/74 100 05/09/17 15:28 100 40 05/09/17 14:00 77 05/09/17 12:13 98 40 05/09/17 12:00 97.7 102 24 135/68 99 05/09/17 12:00 78 05/09/17 12:00 40 05/10/17 05/10/17 05/10/17 07:00 15:00 23:00 Intake Total 1408 ml Output Total 1100 ml Balance 308 ml Result Diagram: 05/10/1751905/10/17519 Laboratory Results Laboratory Tests Test 05/09/17 05/09/17 05/09/17 05/09/17 10:58 16:18 16:55 20:20 Blood Type A POSITIVE Antibody Screen NEGATIVE Crossmatch Leukocyte-Reduced Red Blood Cells Blood Bank Comment Sodium Level 159 MEQ/L 160 MEQ/L Potassium Level 2.4 MEQ/L Chloride Level 126 MEQ/L Carbon Dioxide Level 24.0 MEQ/L Anion Gap 9 MEQ/L Blood Urea Nitrogen 63 MG/DL Creatinine 1.70 MG/DL Estimat Glomerular Filtration 33 ML/MIN Rate Random Glucose 122 MG/DL Calcium Level 8.2 MG/DL Blood Gas Puncture Site MELVINA Blood Gas Patient Temperature 98.6 Blood Gas HCO3 21 mmol/L Blood Gas Base Excess -2.9 mmol/L Blood Gas Oxygen Saturation 97 % Arterial Blood pH 7.42 Arterial Blood Partial 33 mmHg Pressure CO2 Arterial Blood Partial 164 mmHg Pressure O2 Arterial Blood Oxygen Content 11.2 Vol % Arterial Blood 1.3 % Carboxyhemoglobin Arterial Blood Methemoglobin 1.2 % Blood Gas Hemoglobin 7.9 G/DL Oxygen Delivery Device VENT Blood Gas Ventilator Setting Blood Gas Inspired Oxygen 40 % White Blood Count 17.9 TH/MM3 Red Blood Count 2.69 MIL/MM3 Hemoglobin 8.0 GM/DL Hematocrit 25.5 % Mean Corpuscular Volume 94.7 FL Mean Corpuscular Hemoglobin 29.8 PG Mean Corpuscular Hemoglobin 31.5 % Concent Red Cell Distribution Width 15.6 % Platelet Count 248 TH/MM3 Mean Platelet Volume 10.8 FL Test 05/10/17 05:20 White Blood Count 13.0 TH/MM3 Red Blood Count 2.46 MIL/MM3 Hemoglobin 7.4 GM/DL Hematocrit 23.3 % Mean Corpuscular Volume 94.7 FL Mean Corpuscular Hemoglobin 30.0 PG Mean Corpuscular Hemoglobin 31.7 % Concent Red Cell Distribution Width 15.3 % Platelet Count 225 TH/MM3 Mean Platelet Volume 10.3 FL Sodium Level 157 MEQ/L Potassium Level 3.1 MEQ/L Chloride Level 126 MEQ/L Carbon Dioxide Level 19.2 MEQ/L Anion Gap 12 MEQ/L Blood Urea Nitrogen 50 MG/DL Creatinine 1.43 MG/DL Estimat Glomerular Filtration 40 ML/MIN Rate Random Glucose 135 MG/DL Calcium Level 7.7 MG/DL Phosphorus Level 2.2 MG/DL Magnesium Level 2.7 MG/DL Culture Results Microbiology Date/Time Procedure Status Source Growth 05/08/17 10:35 Urine Culture - Final Complete Urine Catheterized Urine Myla Albicans 05/09/17 17:10 Gram Stain - Final Resulted Sputum Endotracheal 05/09/17 17:10 Sputum Culture Resulted Sputum Endotracheal Pending 05/09/17 17:51 Gram Stain Ordered Sputum Endotracheal Pending 05/09/17 17:51 Sputum Culture Ordered Sputum Endotracheal Pending 05/09/17 17:51 Urine Culture Received Urine Catheterized Urine Pending Administered Medications Medications (Trade) Dose Ordered Sig/Elida Route PRN Reason Start Time Stop Time Status Last Admin Dose Admin Dextrose (D50w (Vial) Inj) 25 ml UNSCH PRN IV PUSH HYPOGLYCEMIA-SEE COMMENTS 04/26/17 14:15 05/03/17 06:49 Pantoprazole Sodium (Protonix Inj) 40 mg DAILY IV 04/27/17 09:00 05/10/17 08:16 Chlorhexidine Gluconate (Chlorhexidine 2% Cloth) Taper DAILY@04 TOP 04/27/17 04:00 04/23/18 03:59 05/10/17 03:25 Senna/Docusate Sodium (Avelina-Colace) 1 tab BID PO 04/26/17 21:00 05/10/17 08:17 Labetalol HCl (Trandate Inj) 20 mg Q15M PRN IV PUSH sbp > 160 04/26/17 15:30 05/09/17 22:57 Hydralazine HCl 10 mg 10 mg Q30M PRN IV PUSH sbp > 160 04/26/17 15:30 05/09/17 21:47 Levetriacetam/ Sodium Chloride (Keppra Inj/NS Inj) 105 ml @ 400 mls/hr Q12H IV 04/27/17 21:00 05/10/17 08:16 Bisacodyl (Dulcolax Supp) 10 mg DAILY PRN RECTAL CONSTIPATION 04/27/17 10:30 05/01/17 08:29 Docusate Sodium (Colace) 100 mg BID PO 04/27/17 21:00 05/09/17 20:39 Calcium Gluconate 1 gm 1 gm UNSCH PRN IV SEE LABEL COMMENTS 04/27/17 10:30 04/30/17 19:04 Potassium Chloride 100 ml @ 50 mls/hr UNSCH PRN IV POTASSIUM LESS THAN 4 04/27/17 10:30 05/08/17 14:40 Magnesium Sulfate/ Sodium Chloride (Magnesium Sulfate Inj/NS Inj) 108 ml @ 108 mls/hr UNSCH PRN IV MAGNESIUM LESS THAN 2 04/27/17 10:30 05/01/17 17:56 Morphine Sulfate (Morphine Inj) 2 mg Q2H PRN IV PUSH PAIN SCALE 1 TO 6 04/27/17 10:30 05/07/17 23:02 Morphine Sulfate (Morphine Inj) 4 mg Q2H PRN IV PUSH PAIN SCALE 7 TO 10 04/27/17 10:30 05/10/17 03:25 Chlorhexidine Gluconate (Peridex 0.12% Liq) 15 ml BID@08,20 MT 04/27/17 20:00 05/10/17 08:00 Artificial Tears (Lacrilube Opht Oint) APPLY UNDER BOTH EYELIDS BID EACH EYE 04/28/17 21:00 05/10/17 08:18 Sodium Chloride (NS Flush) 2 ml UNSCH PRN IV FLUSH SEE LABEL COMMENTS 04/28/17 11:15 05/08/17 08:47 Artificial Tears 1 applic 1 applic Q4H PRN EACH EYE SEE LABEL COMMENTS 04/28/17 11:15 05/09/17 20:38 Phenylephrine HCl/ Sodium Chloride (Neosynephrine Inj/NS 500 ml Inj) 500 ml @ 0 mls/hr TITRATE IV 05/01/17 15:00 05/06/17 05:55 Acetaminophen 1000 mg 1,000 mg Q6H PRN IV temp > 37 05/02/17 09:45 05/10/17 02:30 Piperacillin Sod/ Tazobactam Sod (Zosyn 3.375 Gm Premix) 50 ml @ 100 mls/hr Q6H IV 05/05/17 16:00 05/10/17 08:16 Metoclopramide HCl (Reglan Inj) 5 mg Q8H IV PUSH 05/06/17 00:00 05/10/17 08:17 Amantadine HCl (Symmetrel Liq) 200 mg BID@07,12 PO 05/07/17 07:00 05/10/17 08:17 Hydrocortisone Sodium Succinate (SoluCORTEF INJ) 50 mg Q12HR IV PUSH 05/08/17 09:00 05/10/17 08:16 Water 200 ml 200 ml Q6HR PO 05/08/17 07:17 05/10/17 00:00 Dextrose (D5W 1000 ml Inj) 1,000 ml @ 75 mls/hr [id number] IV 05/09/17 11:00 05/10/17 02:29 Fluconazole (Diflucan) 100 mg DAILY OG-TUBE 05/09/17 20:00 05/10/17 08:17 Objective Remarks GENERAL: Intubated, sedated young woman, supine in bed. SKIN: Warm and dry. bandages along right groin, no swelling, no ecchymoses, no bleeding. HEAD: Normocephalic. EYES: No injection or drainage. NECK: Supple, trachea midline. CARDIOVASCULAR: Regular rate and rhythm RESPIRATORY: anterior oquendo clear. on mechanical ventilation. GASTROINTESTINAL: Abdomen nondistended. EXTREMITIES: No cyanosis NEUROLOGICAL: intubated, sedated Assessment/Plan Problem List: (1) CVA (cerebral vascular accident) Status: Acute Plan: 05/10: await rest of hypercoagulable workup. monitor CBC --Massive acute MCA, status post t-PA, status post thrombectomy, status post decompressive craniotomy with cranioplasty. --no Factor V Leiden mutation. --prothrombin gene mutation negative. --no lupus anticoagulant. --protein C and S are normal. --Phospholipid antibodies negative. --Antithrombin III pending. Assessment 42y/o female admitted with CVA, s/p t-PA Hematology consulted for prolonged PTT and question of hypercoagulable state. History (from initial consult): cerebral angiogram showed proximal right M1 occlusion consistent with findings on the CAT scan. --patient developed laceration of the femoral artery which was repaired by Dr. Chandler. Subsequent to that the patient's neurological condition deteriorated. MRI of the brain showed evolving right hemispheric stroke with prominent edema. The patient had developed severe mass effect and midline shift and required decompressive craniotomy and cranioplasty which was performed by Dr. Nathan on April 27. Attending Statement Patient is on the ventilator Rest of the hypercoagulable work up is still pending Discuss with the [place] surgeon Dr. Nathan. He agrees to resume aspirin The exam, history, and the medical decision-making described in the above note were completed with the assistance of the mid-level provider. I reviewed and agree with the findings presented. I attest that I had a [id number] encounter with the patient on the same day, and personally performed and documented my assessment and findings in the medical record. Problem Qualifiers (1) CVA (cerebral vascular accident): Qualified Code: I63.9 - Cerebrovascular accident (CVA), unspecified mechanism Yue Castorena May 10, 2017 10:07 Ruddy Ward MD May 11, 2017 01:28
[2017-05-10 12:23] LABS: BICARBONATE 20.6 MEQ/L (21.0-32.0); POTASSIUM 3.2 MEQ/L (3.5-5.1)
[2017-05-10] MEDS: POTASSIUM CHLOR 20 MEQ PREMIX 100 ML IV SCH ×4 (13:37→17:48)
--- NOTE | 2017-05-10 13:49 | HHI.NSPN ---
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 Her MRI showed midline shift and was taken for emergent right decompressive craniectomy 04/27/17 with placement of ICP monitor. 04/28: pt seen this am during rounds: ICPs became elevated last evening and early this morning in the mid 20's. pt started on Versed drip with bolus of 23%. On Mannitol and 3% NS. ICPs now 11-14. Critical care aware will be initiating code cool. Unstable for repeat CT Head this am. 04/29: intubated and well sedated, hypothermic therapy. ICPs improved and stable overnight. 04/30: ICPs in the high teens. On max sedation. Elevated serums os and sodium levels. Increasing vent rate to decrease pCO2. Started rewarming. 05/01: slowly being rewarmed. ICPs high teens but stable. remains well sedated 05/02: ICPs better today in the mid teens. Well sedated. Febrile. 05/03: ICPs 11-17 overnight, currently 12. Versed off, and off hypothermic tx. 05/04: stable ICPs overnight, no changes to neuro check 05/05: sedation off since 1529 yesterday. No eye opening, no spontaneous movements. 05/06: positive for pneumonia, poor renal function. no changes to neuro checks. 05/09: remains off sedation, nursing reports ? tried to reach when being suctioned. EEG 05/08 neg for seizures. f/u CT Head completed this am 05/10: fiance reports patient lifted arms yesterday. Still no eye opening, not following commands. (Sakina Israel) Labs, Micro, & Vital Signs Results Date Time Temp Pulse Resp B/P Pulse Ox O2 Delivery O2 Flow Rate FiO2 05/10/17 13:00 100 40 05/10/17 12:00 40 05/10/17 12:00 81 05/10/17 12:00 99.5 72 26 142/82 100 05/10/17 10:00 81 05/10/17 08:15 100 40 05/10/17 08:09 100 40 05/10/17 08:00 98.3 64 27 138/72 100 05/10/17 08:00 78 05/10/17 08:00 40 05/10/17 06:00 84 133/80 130/74 05/10/17 06:00 78 05/10/17 04:38 100 40 05/10/17 04:00 40 05/10/17 04:00 98.9 76 27 131/76 99 05/10/17 02:00 70 05/10/17 00:20 99 40 05/10/17 00:00 98.3 74 24 125/73 99 05/10/17 00:00 40 05/10/17 00:00 74 05/09/17 22:00 84 05/09/17 20:32 100 40 05/09/17 20:00 40 05/09/17 20:00 97 05/09/17 20:00 99.2 97 24 127/77 99 05/09/17 18:00 84 121/64 123/68 05/09/17 18:00 84 05/09/17 16:00 40 05/09/17 16:00 69 05/09/17 16:00 98.2 86 20 135/74 100 05/09/17 15:28 100 40 05/09/17 14:00 77 05/10/17 07:00 Intake Total 4227 ml Output Total 3100 ml Balance 1127 ml Constitutional Vital Signs Date Time Temp Pulse Resp B/P Pulse Ox O2 Delivery O2 Flow Rate FiO2 05/10/17 13:00 100 40 05/10/17 12:00 40 05/10/17 12:00 81 05/10/17 12:00 99.5 72 26 142/82 100 05/10/17 10:00 81 05/10/17 08:15 100 40 05/10/17 08:09 100 40 05/10/17 08:00 98.3 64 27 138/72 100 05/10/17 08:00 78 05/10/17 08:00 40 05/10/17 06:00 84 133/80 130/74 05/10/17 06:00 78 05/10/17 04:38 100 40 05/10/17 04:00 40 05/10/17 04:00 98.9 76 27 131/76 99 05/10/17 02:00 70 05/10/17 00:20 99 40 05/10/17 00:00 98.3 74 24 125/73 99 05/10/17 00:00 40 05/10/17 00:00 74 05/09/17 22:00 84 05/09/17 20:32 100 40 05/09/17 20:00 40 05/09/17 20:00 97 05/09/17 20:00 99.2 97 24 127/77 99 05/09/17 18:00 84 121/64 123/68 05/09/17 18:00 84 05/09/17 16:00 40 05/09/17 16:00 69 05/09/17 16:00 98.2 86 20 135/74 100 05/09/17 15:28 100 40 05/09/17 14:00 77 05/10/17 07:00 Intake Total 4227 ml Output Total 3100 ml Balance 1127 ml (Sakina Israel) Review of Systems/Exam Exam Ms. Toledo is intubated, no IV sedatives. Eyes appear slightly open but does not focus or track No spontaneous movements. Right flap remains full, soft to palpate. Surgical wound healing well. clean and dry. Cranial Nerves: Left pupil 4, right pupil 6, b/l nonreactive. left disconjugate gaze. Prince: withdraws to all four extremities Bilateral plantar response silent. (Sakina Israel) Medications Current Medications Current Medications Medications (Trade) Dose Ordered Sig/Elida Route PRN Reason Start Time Stop Time Status Last Admin Dose Admin Dextrose (D50w (Vial) Inj) 25 ml UNSCH PRN IV PUSH HYPOGLYCEMIA-SEE COMMENTS 04/26/17 14:15 05/03/17 06:49 Pantoprazole Sodium (Protonix Inj) 40 mg DAILY IV 04/27/17 09:00 05/10/17 08:16 Ondansetron HCl (Zofran Inj) 4 mg Q6H PRN IV NAUSEA OR VOMITING 04/26/17 14:15 Miscellaneous Information 1 Q361D XX 04/26/17 14:15 Chlorhexidine Gluconate (Chlorhexidine 2% Cloth) Taper DAILY@04 TOP 04/27/17 04:00 04/23/18 03:59 05/10/17 03:25 Chlorhexidine Gluconate (Chlorhexidine 2% Cloth) 3 pack UNSCH PRN TOP HYGIENIC CARE 04/26/17 14:15 Senna/Docusate Sodium (Avelina-Colace) 1 tab BID PO 04/26/17 21:00 05/10/17 08:17 Labetalol HCl (Trandate Inj) 20 mg Q15M PRN IV PUSH sbp > 160 04/26/17 15:30 05/09/17 22:57 Hydralazine HCl 10 mg 10 mg Q30M PRN IV PUSH sbp > 160 04/26/17 15:30 05/09/17 21:47 Levetriacetam/ Sodium Chloride (Keppra Inj/NS Inj) 105 ml @ 400 mls/hr Q12H IV 04/27/17 21:00 05/10/17 08:16 Bisacodyl (Dulcolax Supp) 10 mg DAILY PRN RECTAL CONSTIPATION 04/27/17 10:30 05/01/17 08:29 Docusate Sodium (Colace) 100 mg BID PO 04/27/17 21:00 05/09/17 20:39 Calcium Gluconate 1 gm 1 gm UNSCH PRN IV SEE LABEL COMMENTS 04/27/17 10:30 04/30/17 19:04 Potassium Chloride 100 ml @ 50 mls/hr UNSCH PRN IV POTASSIUM LESS THAN 4 04/27/17 10:30 05/08/17 14:40 Magnesium Sulfate/ Sodium Chloride (Magnesium Sulfate Inj/NS Inj) 108 ml @ 108 mls/hr UNSCH PRN IV MAGNESIUM LESS THAN 2 04/27/17 10:30 05/01/17 17:56 Morphine Sulfate (Morphine Inj) 2 mg Q2H PRN IV PUSH PAIN SCALE 1 TO 6 04/27/17 10:30 05/07/17 23:02 Morphine Sulfate (Morphine Inj) 4 mg Q2H PRN IV PUSH PAIN SCALE 7 TO 10 04/27/17 10:30 05/10/17 03:25 Chlorhexidine Gluconate (Peridex 0.12% Liq) 15 ml BID@08,20 MT 04/27/17 20:00 05/10/17 08:00 Artificial Tears (Lacrilube Opht Oint) APPLY UNDER BOTH EYELIDS BID EACH EYE 04/28/17 21:00 05/10/17 08:18 Lorazepam 1 mg 1 mg Q1H PRN IV SEIZURES 04/28/17 11:15 Miscellaneous Information ml @ 0 mls/hr UNSCH IV 04/28/17 11:15 Sodium Chloride (NS Flush) 2 ml UNSCH PRN IV FLUSH SEE LABEL COMMENTS 04/28/17 11:15 05/08/17 08:47 Sodium Chloride (NS Flush) 2 ml UNSCH PRN IV FLUSH IV FLUSH 04/28/17 11:15 Artificial Tears 1 applic 1 applic Q4H PRN EACH EYE SEE LABEL COMMENTS 04/28/17 11:15 05/09/17 20:38 Phenylephrine HCl/ Sodium Chloride (Neosynephrine Inj/NS 500 ml Inj) 500 ml @ 0 mls/hr TITRATE IV 05/01/17 15:00 05/06/17 05:55 Acetaminophen 1000 mg 1,000 mg Q6H PRN IV temp > 37 05/02/17 09:45 05/10/17 10:34 Piperacillin Sod/ Tazobactam Sod (Zosyn 3.375 Gm Premix) 50 ml @ 100 mls/hr Q6H IV 05/05/17 16:00 05/10/17 08:16 Metoclopramide HCl (Reglan Inj) 5 mg Q8H IV PUSH 05/06/17 00:00 05/10/17 08:17 Amantadine HCl (Symmetrel Liq) 200 mg BID@07,12 PO 05/07/17 07:00 05/10/17 11:26 Hydrocortisone Sodium Succinate (SoluCORTEF INJ) 50 mg Q12HR IV PUSH 05/08/17 09:00 05/10/17 08:16 Water (Free Water) 200 ml Q6HR PO 05/08/17 07:17 05/10/17 11:26 Fluconazole 100 mg 100 mg DAILY OG-TUBE 05/09/17 20:00 05/10/17 08:17 Potassium Chloride (KCl 20 Meq Premix Inj) 100 ml @ 50 mls/hr Q2H IV 05/10/17 13:30 05/10/17 21:29 05/10/17 13:37 (Sakina Israel) Medical Decision Making MDM Remarks 42 year old female with large right hemispheric CVA with mass effect and midline shift, s/p right decompressive craniectomy with placement of ICP monitor 04/27/17, ICP monitor dc'ed 05/04/17 IV sedation off 05/04/17 f/u CT Head 05/09 stable right temporal intraparenchymal bleed (Sakina Israel) Plan Plan Remarks cont current care, ok to start ASA 325 from NRS standpoint, cont follow up neuro examination (Sakina Israel) Attending Statement The exam, history, and the medical decision-making described in the above note were completed with the assistance of the mid-level provider. I reviewed and agree with the findings presented. I attest that I had a [id number] encounter with the patient on the same day, and personally performed and documented my assessment and findings in the medical record. (Garry Nathan MD) Sakina Israel May 10, 2017 13:49 Garry Nathan MD May 13, 2017 16:02
--- NOTE | 2017-05-10 14:59 | HHI.CCPN ---
Subjective Remarks/Hospital Course This is a 42yF with unremarkable past medical history who presents to the [facility] emergency department with new-onset left-sided weakness and slurred speech. She is an employee of [employer] who had a witnessed onset of her symptoms at 12:45pm. In the [facility] ED she was immediately taken for non-contrasted head CT which was negative for acute hemorrhage. She was given iv tpa which was instituted 36 minutes after arrival, per my conversation with the after school program coordinator. She was then emergently transferred to [facility]. CT angiography demonstrated acute right m1 cut-off. She was taken by [facility] and arrived directly to the IR suite, where I met and evaluated the patient. Due to the acute nature of her illness and her dysarthria, a complete history is not obtainable. She does endorse right-sided headache, although denied any chest pain, shortness of breath. 04/27: Back from OR after right craniectomy for decompression s/p left MCA CVA. Heavily sedated. Some new history from a co-worker indicates that patient started taking oral contraceptive 2 months ago. 04/28: Continued problems with cerebral edema as expected. Push osmolality a little higher and restrict fluid. Tolerate pH mildly acidotic to avoid cerebral vascular constriction. 04/29: Osmolality in good range. ICP controlled. Hypothermia to 34 degrees. Raise to 35 slowly as long as ICP is acceptable. Unable to start tube feeds yet as gut motility will be poor at cooler temperature. 04/30: ICP control good. Osmolality acceptable. Temp to 35 degrees. 05/01: Raise temp to 36 degrees and hold. CXR with light basilar infiltrates, no leukocytosis. Heavily sedated for brain protection/ICP control. Persistent blood sugars 60s range - will start D5/NS at 30/hr. 05/02: vasopressor requirement uptrending. wbc uptrending as well. repeat head ct with persistent edema, although ICPs slightly improved. 05/03: slight improvement in vasopressors and lactate with ivf resuscitation. however, still persists on high doses of multiple vasopressors. ICPs stable. off versed. sputum growing chowdhury-sensitive e-coli. I performed critical care bedside echo this morning which demonstrated preserved biventricular function, no significant valvular lesions, ivc with 20% variability and measures at 1.6cm. by echo appears clinically euvolemic. 05/04: vasopressors significantly improved throughout the night. but remains on two vasopressors. this morning, cvp climbing. weaning off sedation. bolt removed. icp's controlled. still poor neurologic exam, despite weaning off sedation. (delayed note entry. seen and evaluated at 06:20am). 05/05: patient seen and evaluated at 06:15am. almost off vasopressors. however, renal function significantly worse. patient is non-oliguric, but failing to diurese fast enough for rising filling pressures. FIO2 up to 100% this morning. CXR with evidence of volume overload. bedside ultrasound of the lungs demonstrate trace pleural effusions with densely consolidated lung oquendo. echo with dilated ivc without respiratory variation, RVSP ~50 mmHg based on trace TR jet. preserved LV and RV function. neuro exam remains poor. 05/06: diuresed > 8L uop overnight. fio2 down to 60%. Cr stabilized. Nephrology consulted. neuro exam still poor. 05/07: continues to diurese, >7L/24h. fio2 still at 50%. Cr stable. neuro exam: starting to withdraw x 4. MRI today without evidence of new infarction on the left. 05/08: slowly improving neurologic exam. fio2 improved as well. continues to diurese, and almost at dry weight. wbc uptrending and low-grade fever. remains on broad spectrum abx. 05/09: Remains encephalopathic off sedation, orally intubated on mechanical ventilation. One unit PRBCs ordered this morning for hemoglobin 6.9. No melena or rectal bleeding per RN. 05/10: Remains encephalopathic off sedation. Withdraws all 4 extremities to pain. Remains orally intubated on mechanical ventilation. Tolerating tube feeds. Objective Vital Signs Date Time Temp Pulse Resp B/P Pulse Ox O2 Delivery O2 Flow Rate FiO2 05/10/17 13:00 100 40 05/10/17 12:00 81 05/10/17 12:00 99.5 26 142/82 05/08/17 08:20 Ventilator Intake and Output 05/09/17 05/09/17 05/10/17 08:00 16:00 00:00 Intake Total 1254 ml 1492 ml 1327 ml Output Total 1150 ml 1000 ml 1000 ml Balance 104 ml 492 ml 327 ml Result Diagram: 05/10/17 0520 05/10/17 1147 Other Results Laboratory Tests Test 05/09/17 05/09/17 05/09/17 05/10/17 16:18 16:55 20:20 05:20 Sodium Level 159 MEQ/L 160 MEQ/L 157 MEQ/L Potassium Level 2.4 MEQ/L 3.1 MEQ/L Chloride Level 126 MEQ/L 126 MEQ/L Carbon Dioxide Level 24.0 MEQ/L 19.2 MEQ/L Anion Gap 9 MEQ/L 12 MEQ/L Blood Urea Nitrogen 63 MG/DL 50 MG/DL Creatinine 1.70 MG/DL 1.43 MG/DL Estimat Glomerular Filtration 33 ML/MIN 40 ML/MIN Rate Random Glucose 122 MG/DL 135 MG/DL Calcium Level 8.2 MG/DL 7.7 MG/DL Blood Gas Puncture Site MELVINA Blood Gas Patient Temperature 98.6 Blood Gas HCO3 21 mmol/L Blood Gas Base Excess -2.9 mmol/L Blood Gas Oxygen Saturation 97 % Arterial Blood pH 7.42 Arterial Blood Partial 33 mmHg Pressure CO2 Arterial Blood Partial 164 mmHg Pressure O2 Arterial Blood Oxygen Content 11.2 Vol % Arterial Blood 1.3 % Carboxyhemoglobin Arterial Blood Methemoglobin 1.2 % Blood Gas Hemoglobin 7.9 G/DL Oxygen Delivery Device VENT Blood Gas Ventilator Setting Blood Gas Inspired Oxygen 40 % White Blood Count 17.9 TH/MM3 13.0 TH/MM3 Red Blood Count 2.69 MIL/MM3 2.46 MIL/MM3 Hemoglobin 8.0 GM/DL 7.4 GM/DL Hematocrit 25.5 % 23.3 % Mean Corpuscular Volume 94.7 FL 94.7 FL Mean Corpuscular Hemoglobin 29.8 PG 30.0 PG Mean Corpuscular Hemoglobin 31.5 % 31.7 % Concent Red Cell Distribution Width 15.6 % 15.3 % Platelet Count 248 TH/MM3 225 TH/MM3 Mean Platelet Volume 10.8 FL 10.3 FL Phosphorus Level 2.2 MG/DL Magnesium Level 2.7 MG/DL Test 05/10/17 11:47 Sodium Level 155 MEQ/L Potassium Level 3.2 MEQ/L Chloride Level 125 MEQ/L Carbon Dioxide Level 20.6 MEQ/L Anion Gap 9 MEQ/L Blood Urea Nitrogen 49 MG/DL Creatinine 1.46 MG/DL Estimat Glomerular Filtration 39 ML/MIN Rate Random Glucose 136 MG/DL Calcium Level 8.5 MG/DL Microbiology Date/Time Procedure Status Source Growth 05/08/17 10:35 Urine Culture - Final Complete Urine Catheterized Urine [facility] Last [address] 05/09/17 0800 Signed Impressions: Service Date/Time: Tuesday, May 09, 2017 08:46 - CONCLUSION: 1. Stable areas of acute intraparenchymal hemorrhage within the right temporal and parietal lobes with the largest area measuring 3 cm. Extensive cytotoxic edema is also noted throughout the right middle cerebral artery distribution and is stable. There is persistent herniation of the right temporal, parietal and frontal lobes through the right craniectomy defect which is stable. Nam Rivas MD Head CT 05/08/17 0000 Signed Impressions: Service Date/Time: Monday, May 08, 2017 13:20 - CONCLUSION: Evolving subacute right middle cerebral artery distribution infarct. 3.2 cm acute parenchymal hemorrhage has developed within the infarcted and herniated right temporal lobe. Minimal midline shift. Juancho Dolan MD Chest X-Ray 05/08/17 0000 Signed Impressions: Service Date/Time: Monday, May 08, 2017 11:52 - CONCLUSION: 1. New right subclavian central venous catheter with tip at the atriocaval junction. No pneumothorax. 2. Unchanged other lines and tubes, including a left internal jugular central venous catheter with tip in the right atrium. 3. Left greater than right basilar consolidation, both sides improved. Juancho Dolan MD Last 24 hours Impressions Chest X-Ray 05/05/17 0000 Signed Impressions: Service Date/Time: April 03:59 - CONCLUSION: Prominent bibasilar infiltrates. Tubes and catheters are all in good position Bertin White MD Objective Remarks gen: middle-aged female, lying in bed, encephalopathic heent: mild facial edema resolving. neck: trachea midline. orally intubated. chest: coarse crackles at the bases, improved from yesterday, good air movement equal chest rise. PCO2 control good. fio2 40%. peep 8. cv: normal rate, regular rhythm. sinus by tele. - JVD. no m,r abd: soft, nontender, nondistended. no guarding. extr: no peripheral edema. distal pulses palpable, well perfused. neuro: Remains encephalopathic, pupils are now 3mm, equal and reactive. withdraws x 4. Weak gag. Urinary Catheter: Yes Assessment to: Continue Vascular Central Line Catheter: Yes Assessment to: Continue A/P Assessment and Plan Assessment: 42yF with acute right M1 MCA CVA now s/p systemic TPA and attempted interventional mechanical thrombectomy. Her course is complicated by malignant cerebral edema requiring decompressive craniectomy and therapeutic hypothermia. She remains with cerebral edema, very critically ill, off pressors now. Trach/peg is reasonable as her neuro exam begins to slowly improve. She still remains very critically ill, however, with ongoing end organ dysfunction and off pathway. Plan by Systems: Neuro: Acute right M1 MCA CVA s/p systemic TPA and endovascular thrombectomy Dysarthria Left-sided hemiparesis Left-sided facial droop Malignant Cerebral Edema s/p Decompressive Craniectomy Elevated ICP -- q1h neuro checks -- wean sedation to obtain neuro exam. -- continue to hold all sedation. -- repeat EEG 05/04: generalized slowing. ?ictal focus over right hemisphere. -- repeat head CT 05/02, 05/04: stable edema, slightly enlarged left lateral ventricle, evolving right hemispheric cva. Head CT 05/08 and 05/09 with right temporopareital 3cm intraparenchymal hemorrhage in herniated area. Neurosurgery following. -- Off hyperosmolar therapy. slowly normalize sodium. -- serial bmps -- SBP goal 110 - 160. -- keppra for seizure ppx Respiratory: Acute hypoxic and Hypercarbic respiratory failure --Daily C Pap trials as tolerated. Unable to protect airway currently. Schedule for perc tracheostomy on 05/11. -- wean fio2 for goal spo2 > 90% -- vent bundle -- elevated HOB Cardiovascular Septic Shock- resolved Adrenal Insufficiency Acute intravascular volume overload -- goal sbp 110 - 160 -- off vasopressors. -- cvp monitoring. Renal: Acute Kidney Injury -- likely multifactorial at this point including ATN. . -- continue ribera with strict i/o's -- Nephrology started D5, hold when sodium gets closer to 155. -- Off bumex drip/ Diamox since 05/08 FEN/GI Acute protein calorie malnutrition- mild Hypernatremia Lactic Acidosis- resolved. Anion-gap metabolic acidosis- resolved. Metabolic Alkalosis secondary to intravascular contraction -- TF, nepro. -- ICU electrolyte protocol -- daily bmp, mg, phos. -- diamox 500mg iv q8h - stopped 05/08 -- Free water per tube: 200 q6h. Nephrology started D5W on 05/09, stopped on 05/10 Heme/ID: Anemia secondary to acute blood loss Leukocytosis E. Coli Pneumonia, likely secondary to aspiration at time of stroke -- Zosyn, renally dosed, pulmonary source. -- sputum culture 05/01: e.coli, chowdhury sensitive -- urine, blood cultures 05/02 NGTD. -- daily cbc -- leukocytosis is concerning, CVL replaced 05/08, urine culture with Myla from 05/08, replaced Ribera and resent urine culture. Started fluconazole 100 mg via OG tube daily on 05/09. On Zosyn day #9. Leukocytosis improving. Will consider stopping Zosyn following 10 days of therapy. Endo: Hypoglycemia- improved. Adrenal Insufficiency -- Off d10w, glycemic control improved. -- frequent glucose checks. -- out of shock. decrease hydrocortisone to 50 mg iv q12h. would plan on a very slow taper given degree of adrenal insufficiency with random cortisol in shock of 6. Prophy: -- SCDs -- pepcid iv for gi prophylaxis Lines: -- LIJ TLC-discontinued 05/08. Right subclavian central line placed 05/08 -- right radial art line 05/05 Discussed with patient's mother at bedside in detail. Awaiting improvement in neurologic status. Discussed need for tracheostomy and PEG tube placement and she has agreed. Consulted GI for PEG tube placement. Schedule for perc trach on 05/11. Overall impression: Large distribution right MCA CVA with shift required decompressive craniectomy 04/27 in an attempt to rescue the dominant hemisphere. She is critically ill with an unstable neurological process, along with multi organ system dysfunction at this point. This patient remains critically ill with one or more organ systems which are or may become a threat to life. I have spent in excess of 40 minutes discontinuously in the care and management of this patient. This time is exclusive of procedures, and includes, but is not limited to, evaluation of the patient, review of the medical record, discussions with family, consultants, nursing staff, or respiratory therapy, and documentation in the medical record. Casa Acuna MD May 10, 2017 14:59
--- NOTE | 2017-05-10 16:43 | PD.CONS ---
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 She is intubated on the ventilator and unable to provide any history and therefore the history has been obtained from the EMR. She was seen as a stroke alert, given TPA, and then transferred as an emergent transfer to [facility]. She then went for a right craniectomy for decompression on 04/27/17. She remains in the surgical ICU, being treated for the above, as well as acute hypoxic and hypercarbic respiratory failure, adrenal insufficiency, acute kidney injury, acute protein calorie malnutrition, hypernatremia, anemia, leukocytosis, and E. Coli pneumonia. She is off of sedation, but is not waking up/following. She does move some spontaneously and withdraws to pain. She remains intubated, as she cannot protect her airway and the plan is for a tracheostomy tomorrow morning at 10am. GI has been consulted for PEG tube placement. She has OGT and is receiving Nepro with a goal rate of 40 mls/hr, as recommended by the household assistant. Her mother, Dary Benedict is her healthcare surrogate and is at the bedside. Discussed EGD with PEG tube placement, procedure, risks, benefits and she would like to speak with one more person before making a final decision, but states she will most likely proceed with this. She is hoping this can be done tomorrow. Informed her that we will try to schedule this for tomorrow, although it may need to be done on and she verbalized understanding. (Maria R Roca) PFSH Past Medical History Per EMR, none Past Surgical History Per EMR, none (Maria R Roca) Coded Allergies: Shellfish (Verified Allergy, Unknown, 04/26/17) Medications Allergies Coded Allergies Type Severity Reaction Last Updated Verified Shellfish Allergy Unknown 04/26/17 Yes Active Scripts Medications Dose Route/Sig Days Date Category No Active Prescriptions or Reported Medications Rx Family History Unable to obtain Social History Unable to obtain (Maria R Roca) Review of Systems ROS Unable to obtain (Maria R Roca) GI Exam Vitals I&O Vital Signs Date Time Temp Pulse Resp B/P Pulse Ox O2 Delivery O2 Flow Rate FiO2 05/10/17 14:00 70 05/10/17 13:00 100 40 05/10/17 12:00 40 05/10/17 12:00 81 05/10/17 12:00 99.5 72 26 142/82 100 05/10/17 10:00 81 05/10/17 08:15 100 40 05/10/17 08:09 100 40 05/10/17 08:00 98.3 64 27 138/72 100 05/10/17 08:00 78 05/10/17 08:00 40 05/10/17 06:00 84 133/80 130/74 05/10/17 06:00 78 05/10/17 04:38 100 40 05/10/17 04:00 40 05/10/17 04:00 98.9 76 27 131/76 99 05/10/17 02:00 70 05/10/17 00:20 99 40 05/10/17 00:00 98.3 74 24 125/73 99 05/10/17 00:00 40 05/10/17 00:00 74 05/09/17 22:00 84 05/09/17 20:32 100 40 05/09/17 20:00 40 05/09/17 20:00 97 05/09/17 20:00 99.2 97 24 127/77 99 05/09/17 18:00 84 121/64 123/68 05/09/17 18:00 84 05/09/17 16:00 40 05/09/17 16:00 69 05/09/17 16:00 98.2 86 20 135/74 100 I/O 05/09/17 05/09/17 05/09/17 05/10/17 05/10/17 05/10/17 07:00 15:00 23:00 07:00 15:00 23:00 Intake Total 1254 ml 1492 ml 1327 ml 1408 ml 1526 ml Output Total 1150 ml 1000 ml 1000 ml 1100 ml 1050 ml Balance 104 ml 492 ml 327 ml 308 ml 476 ml IV Total 541 ml 669 ml 881 ml 728 ml 886 ml Tube Feeding 313 ml 423 ml 246 ml 280 ml 320 ml Other 400 ml 400 ml 200 ml 400 ml 320 ml Output Urine Total 950 ml 600 ml 800 ml 800 ml 550 ml Stool Total 200 ml 400 ml 200 ml 300 ml 500 ml Imaging Last Impressions Head CT 05/09/17 0800 Signed Impressions: Service Date/Time: Tuesday, May 09, 2017 08:46 - CONCLUSION: 1. Stable areas of acute intraparenchymal hemorrhage within the right temporal and parietal lobes with the largest area measuring 3 cm. Extensive cytotoxic edema is also noted throughout the right middle cerebral artery distribution and is stable. There is persistent herniation of the right temporal, parietal and frontal lobes through the right craniectomy defect which is stable. Nam Rivas MD Chest X-Ray 05/08/17 0000 Signed Impressions: Service Date/Time: Monday, May 08, 2017 11:52 - CONCLUSION: 1. New right subclavian central venous catheter with tip at the atriocaval junction. No pneumothorax. 2. Unchanged other lines and tubes, including a left internal jugular central venous catheter with tip in the right atrium. 3. Left greater than right basilar consolidation, both sides improved. Juancho Dolan MD Brain MRI 05/07/17 0000 Signed Impressions: Service Date/Time: Sunday, May 07, 2017 10:19 - CONCLUSION: Interval improvement. Significant hemorrhagic inversion remains in the deep white matter structures involving head of the caudate globus pallidus, anterior limb of internal capsule and part of the posterior limb. There are no new areas of ischemia. There are scattered areas of lenticular type hemorrhage involving the cortical surface of the left sylvian region that is new from the comparison study. There is no evidence for an evolving infarct in the left hemisphere. Phuc Younger MD FACR Neck CTA 04/26/176 Signed Impressions: Service Date/Time: Wednesday, April 26, 2017 13:39 - CONCLUSION: 1. Standard 3 vessel arch anatomy. 2. Widely patent carotid arteries. 3. Dominant left vertebral artery. Vertebral arteries are patent bilaterally. 4. 5 mm right thyroid nodule. This can be further evaluated with ultrasound on an outpatient basis. Cyrus Orozco MD Head CTA 04/26/171315 Signed Impressions: Service Date/Time: Wednesday, April 26, 2017 13:39 - CONCLUSION: 1. Occlusion of the right M1 segment. Grossly intact mendoza-white matter differentiation with gross ASPECT score of 10/10. 2. Incidental finding of 5 mm right thyroid nodule. This can be further evaluated with ultrasound on an outpatient basis. Cyrus Orozco MD Cerebral Arteriogram 04/26/17 0000 Signed Impressions: Service Date/Time: Wednesday, April 26, 2017 14:57 - CONCLUSION: 1. Proximal right M1 occlusion consistent with findings on CT exam. 2. Numerous mechanical thrombectomy attempts due to challenging thrombus extraction and rethrombosis following thrombectomy. In total, ten separate thrombectomy attempts were performed yielding TICI 2b recanalization. Cyrus Orozco MD Laboratory Test 05/09/17 05/09/17 05/09/17 05/10/17 16:18 16:55 20:20 05:20 Sodium Level 159 MEQ/L 160 MEQ/L 157 MEQ/L Potassium Level 2.4 MEQ/L 3.1 MEQ/L Chloride Level 126 MEQ/L 126 MEQ/L Carbon Dioxide Level 24.0 MEQ/L 19.2 MEQ/L Anion Gap 9 MEQ/L 12 MEQ/L Blood Urea Nitrogen 63 MG/DL 50 MG/DL Creatinine 1.70 MG/DL 1.43 MG/DL Estimat Glomerular Filtration 33 ML/MIN 40 ML/MIN Rate Random Glucose 122 MG/DL 135 MG/DL Calcium Level 8.2 MG/DL 7.7 MG/DL Blood Gas Puncture Site MELVINA Blood Gas Patient Temperature 98.6 Blood Gas HCO3 21 mmol/L Blood Gas Base Excess -2.9 mmol/L Blood Gas Oxygen Saturation 97 % Arterial Blood pH 7.42 Arterial Blood Partial 33 mmHg Pressure CO2 Arterial Blood Partial 164 mmHg Pressure O2 Arterial Blood Oxygen Content 11.2 Vol % Arterial Blood 1.3 % Carboxyhemoglobin Arterial Blood Methemoglobin 1.2 % Blood Gas Hemoglobin 7.9 G/DL Oxygen Delivery Device VENT Blood Gas Ventilator Setting Blood Gas Inspired Oxygen 40 % White Blood Count 17.9 TH/MM3 13.0 TH/MM3 Red Blood Count 2.69 MIL/MM3 2.46 MIL/MM3 Hemoglobin 8.0 GM/DL 7.4 GM/DL Hematocrit 25.5 % 23.3 % Mean Corpuscular Volume 94.7 FL 94.7 FL Mean Corpuscular Hemoglobin 29.8 PG 30.0 PG Mean Corpuscular Hemoglobin 31.5 % 31.7 % Concent Red Cell Distribution Width 15.6 % 15.3 % Platelet Count 248 TH/MM3 225 TH/MM3 Mean Platelet Volume 10.8 FL 10.3 FL Phosphorus Level 2.2 MG/DL Magnesium Level 2.7 MG/DL Test 05/10/17 11:47 Sodium Level 155 MEQ/L Potassium Level 3.2 MEQ/L Chloride Level 125 MEQ/L Carbon Dioxide Level 20.6 MEQ/L Anion Gap 9 MEQ/L Blood Urea Nitrogen 49 MG/DL Creatinine 1.46 MG/DL Estimat Glomerular Filtration 39 ML/MIN Rate Random Glucose 136 MG/DL Calcium Level 8.5 MG/DL Date/Time Procedure Status Source Growth 05/09/17 17:51 Urine Culture - Preliminary Resulted Urine Catheterized Urine IMMATURE GROWTH - REINCUBATE 05/09/17 17:51 Gram Stain Ordered Sputum Endotracheal Pending 05/09/17 17:51 Sputum Culture Ordered Sputum Endotracheal Pending 05/09/17 17:10 Gram Stain - Final Resulted Sputum Endotracheal 05/09/17 17:10 Sputum Culture - Preliminary Resulted Sputum Endotracheal MODERATE GROWTH NORMAL RESPIRATORY FL... 05/08/17 10:35 Urine Culture - Final Complete Urine Catheterized Urine Myla Albicans Physical Examination HEENT: Incision line right scalp CHEST: Course breath sounds, OETT to vent. CARDIAC: RRR ABDOMEN: Soft, nondistended, nontender; no hepatosplenomegaly; bowel sounds are present in all four quadrants. EXTREMITIES: No clubbing, cyanosis, or edema. SKIN: Normal; no rash; no jaundice. LAND EXAMINER: Pt eyes closed, does not follow commands, withdraws to pain (Maria R Roca) Assessment and Plan Plan ASSESSMENT: - Dysphagia, FEN. Currently hospitalized with acute right M1 MCA CVA, respiratory failure, adrenal insufficiency, acute kidney injury with electrolyte abnormalities, anemia, acute protein calorie malnutrition, and E. Coli pneumonia, who remains on the ventilator for airway protection. GI has been consulted for PEG tube placement. She has OGT and is receiving Nepro with a goal rate of 40 mls/hr, as recommended by the household assistant. Her mother, Dary Benedict is her healthcare surrogate and is at the bedside. Discussed EGD with PEG tube placement, procedure, risks, benefits and she would like to speak with one more person before making a final decision, but states she will most likely proceed with this. She is hoping this can be done tomorrow. Informed her that we will try to schedule this for tomorrow, although it may need to be done on and she verbalized understanding. - Acute right M1 MCA CVA, Cerebral edema, s/p TPA. S/P Decompressive craniectomy per NSx/Neurology - Respiratory failure, E. Coli Pneumonia. Vent per [facility], plan for trach tomorrow at 10am - FADUMO, electrolyte abnormalities. Improving. Per renal PLAN: - Possible EGD with PEG tube placement tomorrow vs. - Obtain consents (spoke to mother, would like to speak to one more person before making decision, but will most likely want to proceed) - NPO after MN - On Zosyn - Personnel Manager recommends Nepro with a goal rate of 40 mls/hr - Supportive care - Further recommendations to follow based on results of above - Pt seen and examined by Dr. Rich and this note is written on his behalf ( Maria R Roca) Physician Comments Seen and examined with TYRONE, egd/ peg planned, will be co ordinated with Tracheostomy to minimize sedation. On antibiotics. Will follow, thank you ( Francisco Rich MD) Maria R Roca May 10, 2017 16:43 Francisco Rich MD May 11, 2017 13:08
[2017-05-10 17:09] LABS: REVIEW FLAG FINAL
[2017-05-10] MEDS: PROPOFOL 1000 MG/100 ML IV SCH ×2 (17:23→23:08)
[2017-05-10 17:37] LABS: ALT (GPT) 36 U/L (10-53); AST (GOT) 49 U/L (15-37); LDH SERUM 489 U/L (84-246)
[2017-05-10 18:07] LABS: ALKALINE PHOSPHATASE 122 U/L (45-117); FERRITIN 345 NG/ML (8-252); INDIRECT BILIRUBIN 0.3 MG/DL (0.0-0.8); TOTAL BILIRUBIN ADULT 0.4 MG/DL (0.2-1.0); TRANSFERRIN IRON PROFILE 152 MG/DL (200-360)
--- NOTE | 2017-05-10 20:27 | HHI.PR ---
Review/Management Diagnosis right MCA stroke, s/p iv tpa and thrombectomy of right M1 thrombus. Plan resume aspirin Diagnosis/Plan: Subjective Subjective Comments No acute events reported Active Medications Current Medications Medications (Trade) Dose Ordered Sig/Elida Route Start Time Stop Time Status Last Admin (D50w (Vial) Inj) 25 ml UNSCH PRN IV PUSH 04/26/17 14:15 05/03/17 06:49 (Protonix Inj) 40 mg DAILY IV 04/27/17 09:00 05/10/17 08:16 (Zofran Inj) 4 mg Q6H PRN IV 04/26/17 14:15 Miscellaneous Information 1 Q361D XX 04/26/17 14:15 (Chlorhexidine 2% Cloth) Taper DAILY@04 TOP 04/27/17 04:00 04/23/18 03:59 05/10/17 03:25 (Chlorhexidine 2% Cloth) 3 pack UNSCH PRN TOP 04/26/17 14:15 (Avelina-Colace) 1 tab BID PO 04/26/17 21:00 05/10/17 08:17 (Trandate Inj) 20 mg Q15M PRN IV PUSH 04/26/17 15:30 05/09/17 22:57 Hydralazine HCl 10 mg 10 mg Q30M PRN IV PUSH 04/26/17 15:30 05/09/17 21:47 (Keppra Inj/NS Inj) 105 ml @ 400 mls/hr Q12H IV 04/27/17 21:00 05/10/17 08:16 (Dulcolax Supp) 10 mg DAILY PRN RECTAL 04/27/17 10:30 05/01/17 08:29 (Colace) 100 mg BID PO 04/27/17 21:00 05/09/17 20:39 Calcium Gluconate 1 gm 1 gm UNSCH PRN IV 04/27/17 10:30 04/30/17 19:04 Potassium Chloride 100 ml @ 50 mls/hr UNSCH PRN IV 04/27/17 10:30 05/08/17 14:40 (Magnesium Sulfate Inj/NS Inj) 108 ml @ 108 mls/hr UNSCH PRN IV 04/27/17 10:30 05/01/17 17:56 (Peridex 0.12% Liq) 15 ml BID@08,20 MT 04/27/17 20:00 05/10/17 08:00 (Lacrilube Opht Oint) APPLY UNDER BOTH EYELIDS BID EACH EYE 04/28/17 21:00 05/10/17 08:18 Lorazepam 1 mg 1 mg Q1H PRN IV 04/28/17 11:15 Miscellaneous Information ml @ 0 mls/hr UNSCH IV 04/28/17 11:15 (NS Flush) 2 ml UNSCH PRN IV FLUSH 04/28/17 11:15 05/08/17 08:47 (NS Flush) 2 ml UNSCH PRN IV FLUSH 04/28/17 11:15 Artificial Tears 1 applic 1 applic Q4H PRN EACH EYE 04/28/17 11:15 05/09/17 20:38 (Neosynephrine Inj/NS 500 ml Inj) 500 ml @ 0 mls/hr TITRATE IV 05/01/17 15:00 05/06/17 05:55 Acetaminophen 1000 mg 1,000 mg Q6H PRN IV 05/02/17 09:45 05/10/17 16:47 (Zosyn 3.375 Gm Premix) 50 ml @ 100 mls/hr Q6H IV 05/05/17 16:00 05/10/17 16:47 (Reglan Inj) 5 mg Q8H IV PUSH 05/06/17 00:00 05/10/17 08:17 (Symmetrel Liq) 200 mg BID@07,12 PO 05/07/17 07:00 05/10/17 11:26 (SoluCORTEF INJ) 50 mg Q12HR IV PUSH 05/08/17 09:00 05/10/17 08:16 (Free Water) 200 ml Q6HR PO 05/08/17 07:17 05/10/17 17:31 Fluconazole 100 mg 100 mg DAILY OG-TUBE 05/09/17 20:00 05/10/17 08:17 Potassium Chloride 100 ml @ 50 mls/hr Q2H IV 05/10/17 13:30 05/10/17 21:29 05/10/17 17:48 (Diprivan 1000 Mg/100ml Inj) 100 ml @ 0 mls/hr TITRATE IV 05/10/17 17:15 05/10/17 17:23 Allergies Allergies Coded Allergies Shellfish (Verified Allergy, Unknown, 04/26/17) Exam I&O / VS 05/09/17 05/09/17 05/10/17 15:00 23:00 07:00 Intake Total 1492 ml 1327 ml 1408 ml Output Total 1000 ml 1000 ml 1100 ml Balance 492 ml 327 ml 308 ml IV Total 669 ml 881 ml 728 ml Tube Feeding 423 ml 246 ml 280 ml Other 400 ml 200 ml 400 ml Output Urine Total 600 ml 800 ml 800 ml Stool Total 400 ml 200 ml 300 ml Vital Signs Date Time Temp Pulse Resp B/P Pulse Ox O2 Delivery O2 Flow Rate FiO2 05/10/17 18:00 86 05/10/17 16:10 40 05/10/17 16:00 70 05/10/17 16:00 40 05/10/17 16:00 98.9 87 30 143/67 100 Arterial Line 05/10/17 14:00 70 05/10/17 13:00 100 40 05/10/17 12:00 40 05/10/17 12:00 81 05/10/17 12:00 99.5 72 26 142/82 100 05/10/17 10:00 81 05/10/17 08:15 100 40 05/10/17 08:09 100 40 05/10/17 08:00 98.3 64 27 138/72 100 05/10/17 08:00 78 05/10/17 08:00 40 05/10/17 06:00 84 133/80 130/74 05/10/17 06:00 78 05/10/17 04:38 100 40 05/10/17 04:00 40 05/10/17 04:00 98.9 76 27 131/76 99 05/10/17 02:00 70 05/10/17 00:20 99 40 05/10/17 00:00 98.3 74 24 125/73 99 05/10/17 00:00 40 05/10/17 00:00 74 05/09/17 22:00 84 05/09/17 20:32 100 40 Exam Comments nonresponsive pupils 3 mm right nonreactive, 2 mm left and reactive, disconjugate gaze improved today does withdraw BLE to tactile stim Objective Micro and Labs Laboratory Tests Test 05/10/17 05/10/17 05/10/17 05:20 11:47 16:23 White Blood Count 13.0 Red Blood Count 2.46 Hemoglobin 7.4 Hematocrit 23.3 Mean Corpuscular Volume 94.7 Mean Corpuscular Hemoglobin 30.0 Mean Corpuscular Hemoglobin 31.7 Concent Red Cell Distribution Width 15.3 Platelet Count 225 Mean Platelet Volume 10.3 Sodium Level 157 155 Potassium Level 3.1 3.2 Chloride Level 126 125 Carbon Dioxide Level 19.2 20.6 Anion Gap 12 9 Blood Urea Nitrogen 50 49 Creatinine 1.43 1.46 Estimat Glomerular Filtration 40 39 Rate Random Glucose 135 136 Calcium Level 7.7 8.5 Phosphorus Level 2.2 Magnesium Level 2.7 Reticulocyte Count 4.0 Absolute Reticulocyte Count 96.7 Haptoglobin 210 Iron Level 30 Total Iron Binding Capacity 213 Percent Iron Saturation 14.1 Ferritin 345 Total Bilirubin 0.4 Direct Bilirubin 0.1 Indirect Bilirubin 0.3 Aspartate Amino Transf 49 (AST/SGOT) Alanine Aminotransferase 36 (ALT/SGPT) Alkaline Phosphatase 122 Lactate Dehydrogenase 489 Total Protein 6.0 Albumin 2.5 Vitamin B12 Level GREATER THAN 2000 Folate 10.3 Blood Type A POSITIVE Direct Antiglobulin Test NEGATIVE (Indigo) Date/Time Procedure Status Source Growth 05/10/17 16:30 Stool Occult Blood (MILO) - Final Complete Stool Stool HEMOCCULT NEGATIVE 05/09/17 17:51 Urine Culture - Preliminary Resulted Urine Catheterized Urine IMMATURE GROWTH - REINCUBATE 05/09/17 17:51 Gram Stain Ordered Sputum Endotracheal Pending 05/09/17 17:51 Sputum Culture Ordered Sputum Endotracheal Pending 05/09/17 17:10 Gram Stain - Final Resulted Sputum Endotracheal 05/09/17 17:10 Sputum Culture - Preliminary Resulted Sputum Endotracheal MODERATE GROWTH NORMAL RESPIRATORY FL... 05/08/17 10:35 Urine Culture - Final Complete Urine Catheterized Urine Myla Albicans Santana Gomez PhD May 10, 2017 20:27
[2017-05-10] MEDS: fentaNYL 2,500 MCG/NS 250 ML IV SCH (22:40)
[2017-05-11] VITALS (17 sets, daily range): BP systolic 130–136; BP diastolic 62–88; PULSE 58–93; RESP 18–30; TEMP 96.5–99.3; O2SAT 100
[2017-05-11] MEDS: INSULIN NovoLIN REGULAR SUPPLEMENTAL SCALE SQ SCH ×5 (03:00→20:37)
[2017-05-11] MEDS: CHLORHEXIDINE GLUCONATE 2 % 1 PACK (2 CLOTHS) TOP SCH (04:00)
[2017-05-11] MEDS: PROPOFOL 1000 MG/100 ML IV SCH ×3 (05:05→15:26)
[2017-05-11] MEDS: PIPERACIL-TAZO 3.375 GM PREMIX 50 ML IV SCH ×4 (05:06→22:36)
[2017-05-11 05:22] LABS: AUTOMATED NEUTROPHIL # 12.8 TH/MM3 (1.8-7.7); BASOPHIL % 0.1 % (0.0-2.0); EOSINOPHIL # 0.1 TH/MM3 (0-0.4); EOSINOPHIL % 0.5 % (0.0-4.0); HEMATOCRIT 24.3 % (35.0-46.0); HEMO FLAGS DIFF FINAL; LYMPHOCYTE # 1.7 TH/MM3 (1.0-4.8); MEAN CELL VOLUME 95.7 FL (80.0-100.0); MEAN CORPUSCULAR HEMOGLOBIN 29.7 PG (27.0-34.0); MONO % 3.9 % (0.0-8.0); NEUT % 84.5 % (16.0-70.0); PLATELET COUNT 298 TH/MM3 (150-450); RED BLOOD COUNT 2.54 MIL/MM3 (4.00-5.30); RED CELL DISTRIBUTION WIDTH 15.6 % (11.6-17.2); WHITE BLOOD COUNT 15.1 TH/MM3 (4.0-11.0)
[2017-05-11 05:36] LABS: BICARBONATE 21.7 MEQ/L (21.0-32.0); MAGNESIUM 2.4 MG/DL (1.5-2.5)
[2017-05-11 05:56] LABS: APTT (PATIENT) 23.9 SEC (24.3-30.1); PROTHROMBIN TIME - PATIENT 11.3 SEC (9.8-11.6)
[2017-05-11] MEDS: FREE WATER PO SCH ×3 (06:00→18:00)
[2017-05-11] MEDS: AMANTADINE HCL SOLN 100 MG/10 ML UDC PO SCH ×2 (06:37→13:06)
[2017-05-11] MEDS: METOCLOPRAMIDE HCL 10 MG/2 ML VIAL IV PUSH SCH ×2 (08:00→15:26)
[2017-05-11] MEDS: CHLORHEXIDINE 0.12% (ORAL KIT) 15 ML CUP MT SCH ×2 (08:00→19:50)
[2017-05-11] MEDS: PANTOPRAZOLE SODIUM 40 MG VIAL IV SCH (08:26)
[2017-05-11] MEDS: HYDROCORTISONE SOD SUCCINATE 100 MG VIAL IV PUSH SCH ×2 (08:26→20:03)
[2017-05-11] MEDS: levETIRAcetam INJ 500 MG in SODIUM CHLORIDE 0.9% INJ 100 ML IV SCH ×2 (08:27→20:03)
[2017-05-11] MEDS: FLUCONAZOLE 100 MG TAB OG-TUBE SCH (08:27)
[2017-05-11] MEDS: ASPIRIN 325 MG TAB PO SCH (08:28)
[2017-05-11] MEDS: ARTIFICIAL TEARS OPTH OINT 3.5 APPLIC/3.5 GM TUBO EACH EYE SCH ×2 (08:28→20:03)
[2017-05-11] MEDS: DOCUSATE SODIUM 50 MG/SENNA 8.6 MG TAB PO SCH ×2 (08:29→20:03)
[2017-05-11] MEDS: DOCUSATE SODIUM 100 MG CAP PO SCH ×2 (08:29→20:03)
--- NOTE | 2017-05-11 08:57 | HHI.CCPN ---
Subjective Remarks/Hospital Course This is a 42yF with unremarkable past medical history who presents to the [facility] emergency department with new-onset left-sided weakness and slurred speech. She is an employee of [employer] who had a witnessed onset of her symptoms at 12:45pm. In the [facility] ED she was immediately taken for non-contrasted head CT which was negative for acute hemorrhage. She was given iv tpa which was instituted 36 minutes after arrival, per my conversation with the product marketing coordinator. She was then emergently transferred to [facility]. CT angiography demonstrated acute right m1 cut-off. She was taken by [facility] and arrived directly to the IR suite, where I met and evaluated the patient. Due to the acute nature of her illness and her dysarthria, a complete history is not obtainable. She does endorse right-sided headache, although denied any chest pain, shortness of breath. 04/27: Back from OR after right craniectomy for decompression s/p left MCA CVA. Heavily sedated. Some new history from a co-worker indicates that patient started taking oral contraceptive 2 months ago. 04/28: Continued problems with cerebral edema as expected. Push osmolality a little higher and restrict fluid. Tolerate pH mildly acidotic to avoid cerebral vascular constriction. 04/29: Osmolality in good range. ICP controlled. Hypothermia to 34 degrees. Raise to 35 slowly as long as ICP is acceptable. Unable to start tube feeds yet as gut motility will be poor at cooler temperature. 04/30: ICP control good. Osmolality acceptable. Temp to 35 degrees. 05/01: Raise temp to 36 degrees and hold. CXR with light basilar infiltrates, no leukocytosis. Heavily sedated for brain protection/ICP control. Persistent blood sugars 60s range - will start D5/NS at 30/hr. 05/02: vasopressor requirement uptrending. wbc uptrending as well. repeat head ct with persistent edema, although ICPs slightly improved. 05/03: slight improvement in vasopressors and lactate with ivf resuscitation. however, still persists on high doses of multiple vasopressors. ICPs stable. off versed. sputum growing chowdhury-sensitive e-coli. I performed critical care bedside echo this morning which demonstrated preserved biventricular function, no significant valvular lesions, ivc with 20% variability and measures at 1.6cm. by echo appears clinically euvolemic. 05/04: vasopressors significantly improved throughout the night. but remains on two vasopressors. this morning, cvp climbing. weaning off sedation. bolt removed. icp's controlled. still poor neurologic exam, despite weaning off sedation. (delayed note entry. seen and evaluated at 06:20am). 05/05: patient seen and evaluated at 06:15am. almost off vasopressors. however, renal function significantly worse. patient is non-oliguric, but failing to diurese fast enough for rising filling pressures. FIO2 up to 100% this morning. CXR with evidence of volume overload. bedside ultrasound of the lungs demonstrate trace pleural effusions with densely consolidated lung oquendo. echo with dilated ivc without respiratory variation, RVSP ~50 mmHg based on trace TR jet. preserved LV and RV function. neuro exam remains poor. 05/06: diuresed > 8L uop overnight. fio2 down to 60%. Cr stabilized. Nephrology consulted. neuro exam still poor. 05/07: continues to diurese, >7L/24h. fio2 still at 50%. Cr stable. neuro exam: starting to withdraw x 4. MRI today without evidence of new infarction on the left. 05/08: slowly improving neurologic exam. fio2 improved as well. continues to diurese, and almost at dry weight. wbc uptrending and low-grade fever. remains on broad spectrum abx. 05/09: Remains encephalopathic off sedation, orally intubated on mechanical ventilation. One unit PRBCs ordered this morning for hemoglobin 6.9. No melena or rectal bleeding per RN. 05/10: Remains encephalopathic off sedation. Withdraws all 4 extremities to pain. Remains orally intubated on mechanical ventilation. Tolerating tube feeds. 05/11: Started on propofol last evening she began to hyperventilate and gets tachypneic while on mechanical ventilation. Currently sedated, orally intubated on mechanical ventilation. Awaiting tracheostomy and PEG tube placement. Objective Vital Signs Date Time Temp Pulse Resp B/P Pulse Ox O2 Delivery O2 Flow Rate FiO2 05/11/17 06:00 65 05/11/17 04:00 40 05/11/17 04:00 98.4 30 136/72 100 05/08/17 08:20 Ventilator Intake and Output 05/10/17 05/10/17 05/11/17 08:00 16:00 00:00 Intake Total 1408 ml 1526 ml 991 ml Output Total 1100 ml 1050 ml 800 ml Balance 308 ml 476 ml 191 ml Result Diagram: 05/11/17 0450 05/11/17 0450 Other Results Laboratory Tests Test 05/10/17 05/10/17 05/11/17 11:47 16:23 04:50 Sodium Level 155 MEQ/L 155 MEQ/L Potassium Level 3.2 MEQ/L 4.0 MEQ/L Chloride Level 125 MEQ/L 125 MEQ/L Carbon Dioxide Level 20.6 MEQ/L 21.7 MEQ/L Anion Gap 9 MEQ/L 8 MEQ/L Blood Urea Nitrogen 49 MG/DL 46 MG/DL Creatinine 1.46 MG/DL 1.15 MG/DL Estimat Glomerular Filtration 39 ML/MIN 51 ML/MIN Rate Random Glucose 136 MG/DL 95 MG/DL Calcium Level 8.5 MG/DL 8.2 MG/DL Reticulocyte Count 4.0 % Absolute Reticulocyte Count 96.7 MIL/L Haptoglobin 210 MG/DL Iron Level 30 MCG/DL Total Iron Binding Capacity 213 MCG/DL Percent Iron Saturation 14.1 % Ferritin 345 NG/ML Total Bilirubin 0.4 MG/DL Direct Bilirubin 0.1 MG/DL Indirect Bilirubin 0.3 MG/DL Aspartate Amino Transf 49 U/L (AST/SGOT) Alanine Aminotransferase 36 U/L (ALT/SGPT) Alkaline Phosphatase 122 U/L Lactate Dehydrogenase 489 U/L Total Protein 6.0 GM/DL Albumin 2.5 GM/DL Vitamin B12 Level GREATER THAN 2000 PG/ML Folate 10.3 NG/ML Blood Type A POSITIVE Direct Antiglobulin Test NEGATIVE (Indigo) White Blood Count 15.1 TH/MM3 Red Blood Count 2.54 MIL/MM3 Hemoglobin 7.5 GM/DL Hematocrit 24.3 % Mean Corpuscular Volume 95.7 FL Mean Corpuscular Hemoglobin 29.7 PG Mean Corpuscular Hemoglobin 31.0 % Concent Red Cell Distribution Width 15.6 % Platelet Count 298 TH/MM3 Mean Platelet Volume 10.8 FL Neutrophils (%) (Auto) 84.5 % Lymphocytes (%) (Auto) 11.0 % Monocytes (%) (Auto) 3.9 % Eosinophils (%) (Auto) 0.5 % Basophils (%) (Auto) 0.1 % Neutrophils # (Auto) 12.8 TH/MM3 Lymphocytes # (Auto) 1.7 TH/MM3 Monocytes # (Auto) 0.6 TH/MM3 Eosinophils # (Auto) 0.1 TH/MM3 Basophils # (Auto) 0.0 TH/MM3 CBC Comment DIFF FINAL Differential Comment Prothrombin Time 11.3 SEC Prothromb Time International 1.0 RATIO Ratio Activated Partial 23.9 SEC Thromboplast Time Fibrinogen 306 mg/dL Magnesium Level 2.4 MG/DL Microbiology Date/Time Procedure Status Source Growth 05/08/17 10:35 Urine Culture - Final Complete Urine Catheterized Urine Myla Albicans 05/10/17 16:30 Stool Occult Blood (MILO) - Final Complete Stool Stool HEMOCCULT NEGATIVE Imaging Last [address] 05/09/17 0800 Signed Impressions: Service Date/Time: Tuesday, May 09, 2017 08:46 - CONCLUSION: 1. Stable areas of acute intraparenchymal hemorrhage within the right temporal and parietal lobes with the largest area measuring 3 cm. Extensive cytotoxic edema is also noted throughout the right middle cerebral artery distribution and is stable. There is persistent herniation of the right temporal, parietal and frontal lobes through the right craniectomy defect which is stable. Nam Rivas MD Head CT 05/08/17 0000 Signed Impressions: Service Date/Time: Monday, May 08, 2017 13:20 - CONCLUSION: Evolving subacute right middle cerebral artery distribution infarct. 3.2 cm acute parenchymal hemorrhage has developed within the infarcted and herniated right temporal lobe. Minimal midline shift. Juancho Dolan MD Chest X-Ray 05/08/17 0000 Signed Impressions: Service Date/Time: Monday, May 08, 2017 11:52 - CONCLUSION: 1. New right subclavian central venous catheter with tip at the atriocaval junction. No pneumothorax. 2. Unchanged other lines and tubes, including a left internal jugular central venous catheter with tip in the right atrium. 3. Left greater than right basilar consolidation, both sides improved. Juancho Dolan MD Last 24 hours Impressions Chest X-Ray 05/05/17 0000 Signed Impressions: Service Date/Time: April 03:59 - CONCLUSION: Prominent bibasilar infiltrates. Tubes and catheters are all in good position Bertin White MD Objective Remarks gen: middle-aged female, lying in bed, encephalopathic heent: mild facial edema resolving. neck: trachea midline. orally intubated. chest: coarse crackles at the bases, improved from yesterday, good air movement equal chest rise. PCO2 control good. fio2 40%. peep 8. cv: normal rate, regular rhythm. sinus by tele. - JVD. no m,r abd: soft, nontender, nondistended. no guarding. extr: no peripheral edema. distal pulses palpable, well perfused. neuro: Remains encephalopathic, pupils are now 3mm, equal and reactive. withdraws x 4. Weak gag. Urinary Catheter: Yes Assessment to: Continue Vascular Central Line Catheter: Yes Assessment to: Continue A/P Assessment and Plan Assessment: 42yF with acute right M1 MCA CVA now s/p systemic TPA and attempted interventional mechanical thrombectomy. Her course is complicated by malignant cerebral edema requiring decompressive craniectomy and therapeutic hypothermia. She remains with cerebral edema, very critically ill, off pressors now. Trach/peg is reasonable as her neuro exam begins to slowly improve. She still remains very critically ill, however, with ongoing end organ dysfunction and off pathway. Plan by Systems: Neuro: Acute right M1 MCA CVA s/p systemic TPA and endovascular thrombectomy Dysarthria Left-sided hemiparesis Left-sided facial droop Malignant Cerebral Edema s/p Decompressive Craniectomy Elevated ICP -- Continue neuro checks --Propofol for sedation as needed. Started on fentanyl on night as tachypnea persisted despite propofol. Daily sedation vacation. -- repeat EEG 05/04: generalized slowing. ?ictal focus over right hemisphere. -- repeat head CT 05/02, 05/04: stable edema, slightly enlarged left lateral ventricle, evolving right hemispheric cva. Head CT 05/08 and 05/09 with right temporopareital 3cm intraparenchymal hemorrhage in herniated area. Neurosurgery following. -- Off hyperosmolar therapy. slowly normalize sodium. -- serial bmps -- SBP goal 110 - 160. -- keppra for seizure ppx -- To be started on aspirin 325 mg daily on 05/11 (cleared by Dr. Nathan) Respiratory: Acute hypoxic and Hypercarbic respiratory failure --Daily C Pap trials as tolerated. Unable to protect airway currently. Scheduled for perc tracheostomy on 05/11. -- wean fio2 for goal spo2 > 90% -- vent bundle -- elevated HOB Cardiovascular Septic Shock- resolved Adrenal Insufficiency Acute intravascular volume overload -- goal sbp 110 - 160 -- off vasopressors. -- cvp monitoring. Renal: Acute Kidney Injury -- likely multifactorial at this point including ATN. . -- continue ribera with strict i/o's -- Nephrology started D5, stopped on 05/10 as sodium down from 162 to 155. Remains on free water via OGT. -- Off bumex drip/ Diamox since 05/08 FEN/GI Acute protein calorie malnutrition- mild Hypernatremia Lactic Acidosis- resolved. Anion-gap metabolic acidosis- resolved. Metabolic Alkalosis secondary to intravascular contraction -- TF, nepro. -- ICU electrolyte protocol -- Monitor and replete electrolytes. -- diamox 500mg iv q8h - stopped 05/08 -- Free water per tube: 200 q6h. Nephrology started D5W on 05/09, stopped on 05/10 Heme/ID: Anemia secondary to acute blood loss Leukocytosis E. Coli Pneumonia, likely secondary to aspiration at time of stroke -- Zosyn, pulmonary source. -- sputum culture 05/01: e.coli, chowdhury sensitive -- urine, blood cultures 05/02 NGTD. -- daily cbc. Labs suggest and efficiency. Initiating iron sucrose 200 mg IV daily 3 days. -- leukocytosis is concerning, CVL replaced 05/08, urine culture with Myla from 05/08, replaced Ribera and resent urine culture. Started fluconazole 100 mg via OG tube daily on 05/09. On Zosyn day #10. Leukocytosis noted. Will stop Zosyn following 10 days of therapy on 05/11. Endo: Hypoglycemia- improved. Adrenal Insufficiency -- Off d10w, glycemic control improved. -- frequent glucose checks. -- out of shock. decrease hydrocortisone to 50 mg iv q12h. would plan on a very slow taper given degree of adrenal insufficiency with random cortisol in shock of 6. Prophy: -- SCDs -- pepcid iv for gi prophylaxis Lines: -- LIJ TLC-discontinued 05/08. Right subclavian central line placed 05/08 -- right radial art line 05/05 Discussed with patient's mother at bedside in detail on 05/11. Awaiting improvement in neurologic status. Discussed need for tracheostomy and PEG tube placement and she has agreed. Consulted GI for PEG tube placement. Schedule for perc trach on 05/11. Overall impression: Large distribution right MCA CVA with shift required decompressive craniectomy 04/27 in an attempt to rescue the dominant hemisphere. She is critically ill with an unstable neurological process, along with multi organ system dysfunction at this point. This patient remains critically ill with one or more organ systems which are or may become a threat to life. I have spent in excess of 40 minutes discontinuously in the care and management of this patient. This time is exclusive of procedures, and includes, but is not limited to, evaluation of the patient, review of the medical record, discussions with family, consultants, nursing staff, or respiratory therapy, and documentation in the medical record. Casa Acuna MD May 11, 2017 08:57
[2017-05-11] MEDS ORDERED: fentaNYL CITRATE 250 MCG/5 ML AMP IV ONE (09:15)
[2017-05-11] MEDS ORDERED: MIDAZOLAM HCL 5 MG/5 ML VIAL IV ONE (09:15)
[2017-05-11] MEDS ORDERED: VECURONIUM BROMIDE 10 MG VIAL IV ONE (09:15)
[2017-05-11] MEDS: fentaNYL 2,500 MCG/NS 250 ML IV SCH (09:28)
--- NOTE | 2017-05-11 09:58 | HHI.NPPN ---
Subjective General Problems: Anemia Renal Failure: Acute Interval History She is being prepped for trach this morning. Renal function is better. Sodium has improved. (Edna Nicole) Review of Systems General General Remarks unable to obtain (Edna Nicole) Objective Data Data 05/10/17 05/11/17 19:00 07:00 Intake Total 1526 ml 1252 ml Output Total 1050 ml 1200 ml Balance 476 ml 52 ml IV Total 886 ml 749 ml Tube Feeding 320 ml 337 ml Lipid 166 ml Other 320 ml Output Urine Total 550 ml 1200 ml Stool Total 500 ml 0 ml Vital Signs Date Time Temp Pulse Resp B/P Pulse Ox O2 Delivery O2 Flow Rate FiO2 05/11/17 08:00 65 05/11/17 08:00 97.2 68 22 130/75 100 05/11/17 08:00 40 05/11/17 06:00 65 05/11/17 04:00 40 05/11/17 04:00 98.4 70 30 136/72 100 05/11/17 04:00 66 05/11/17 02:48 100 40 05/11/17 02:00 58 05/11/17 00:00 66 05/11/17 00:00 98.4 70 30 136/72 100 05/11/17 00:00 40 05/10/17 22:00 71 05/10/17 20:00 98.4 70 30 136/72 100 05/10/17 20:00 70 05/10/17 20:00 40 05/10/17 19:45 100 40 05/10/17 18:00 86 05/10/17 16:10 40 05/10/17 16:00 70 05/10/17 16:00 40 05/10/17 16:00 98.9 87 30 143/67 100 Arterial Line 05/10/17 14:00 70 05/10/17 13:00 100 40 05/10/17 12:00 40 05/10/17 12:00 81 05/10/17 12:00 99.5 72 26 142/82 100 05/10/17 10:00 81 (Edna Nicole) -: 05/11/17 0450 05/11/17 0450 Microbiology 05/10/17 Stool Occult Blood (MILO) - Final, Complete HEMOCCULT NEGATIVE Imaging Last [address] 05/09/17 0800 Signed Impressions: Service Date/Time: Tuesday, May 09, 2017 08:46 - CONCLUSION: 1. Stable areas of acute intraparenchymal hemorrhage within the right temporal and parietal lobes with the largest area measuring 3 cm. Extensive cytotoxic edema is also noted throughout the right middle cerebral artery distribution and is stable. There is persistent herniation of the right temporal, parietal and frontal lobes through the right craniectomy defect which is stable. Nam Rivas MD Tubes & Lines: Head Tubes & Lines Comment A line right radial; TLC right IJ (Edna Nicole B. PARTICIPANT ADMINISTRATOR) Physical Exam General Appearance: Well Developed, Comfortable, Sleeping (Edna Nicole B. PARTICIPANT ADMINISTRATOR) Eyes Eye Exam: Pupils Equal (CoreyEdna B. PARTICIPANT ADMINISTRATOR) Throat Throat Exam: Oral Mucosa Baker & Moist (CoreyEdna B. PARTICIPANT ADMINISTRATOR) Neck Neck Exam: Neck Supple (CoreyEdna B. PARTICIPANT ADMINISTRATOR) Pulmonary Resp Exam: No Distress, Rhonchi, Decreased Bases Resp Remarks intubated, vented lung sounds (Edna Nicole B. PARTICIPANT ADMINISTRATOR) Cardiology CV Exam: Regular, Normal Sinus Rhythm (Edna Nicole B. PARTICIPANT ADMINISTRATOR) Gastrointestinal/Abdomen GI Exam: Soft, Non-Tender, Bowel Sounds Present (Herbert Nicoleon B. PARTICIPANT ADMINISTRATOR) Musculoskeletal MS Exam: Joints Intact, Good Strength, Unable to Ambulate (Herbert Nicoleon B. PARTICIPANT ADMINISTRATOR) Integumentary Skin Exam: Warm, Dry (Edna Nicole B. PARTICIPANT ADMINISTRATOR) Extremeties Extremities Exam: No Edema, Pedal Pulses Palpable (CoreyEdna B. PARTICIPANT ADMINISTRATOR) Neurologic Neuro Exam: Unresponsive (CoreyEdna B. PARTICIPANT ADMINISTRATOR) Assessment/Plan Discussed Condition With: Relative Assessment Summary: FADUMO/Acute Renal Failure Electrolyte Assessment: Hypernatremia Problem List: (1) FADUMO (acute kidney injury) Plan: In a pt with normal renal function at baseline FADUMO likely due to hypotension and decreased renal perfusion, may have progressed to ATN renal function improving her urine output is adequate, she is off diuretics potassium has corrected obtain daily renal panel (2) CVA (cerebral vascular accident) Plan: neurosurgery following, s/p crani unsure what terminal worker prognosis is CT head showing continued cerebral edema tracheostomy placement today permissive hypernatremia, goal 155mg/dL, D5W has been stopped (3) Fluid overload Plan: improved, now with negative fluid balance off diuretics (4) Anemia Plan: persistent anemia despite blood transfusions labs indicating iron deficiency Plan we will sign off at this time, call us if needed (Edna Nicole) Plan patient was seen and examined. Agree with above assessment and plan. We will see her as needed. (Rohit Bains MD) Problem Qualifiers (1) CVA (cerebral vascular accident): Qualified Code: I63.9 - Cerebrovascular accident (CVA), unspecified mechanism Edna Nicole May 11, 2017 09:58 Rohit Bains MD May 11, 2017 10:11
--- NOTE | 2017-05-11 10:19 | HHI.NSPN ---
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 Her MRI showed midline shift and was taken for emergent right decompressive craniectomy 04/27/17 with placement of ICP monitor. 04/28: pt seen this am during rounds: ICPs became elevated last evening and early this morning in the mid 20's. pt started on Versed drip with bolus of 23%. On Mannitol and 3% NS. ICPs now 11-14. Critical care aware will be initiating code cool. Unstable for repeat CT Head this am. 04/29: intubated and well sedated, hypothermic therapy. ICPs improved and stable overnight. 04/30: ICPs in the high teens. On max sedation. Elevated serums os and sodium levels. Increasing vent rate to decrease pCO2. Started rewarming. 05/01: slowly being rewarmed. ICPs high teens but stable. remains well sedated 05/02: ICPs better today in the mid teens. Well sedated. Febrile. 05/03: ICPs 11-17 overnight, currently 12. Versed off, and off hypothermic tx. 05/04: stable ICPs overnight, no changes to neuro check 05/05: sedation off since 1529 yesterday. No eye opening, no spontaneous movements. 05/06: positive for pneumonia, poor renal function. no changes to neuro checks. 05/09: remains off sedation, nursing reports ? tried to reach when being suctioned. EEG 05/08 neg for seizures. f/u CT Head completed this am 05/10: fiance reports patient lifted arms yesterday. Still no eye opening, not following commands. 05/11: sedated - for tracheostomy and PEG today. (Sakina Israel) Labs, Micro, & Vital Signs Results Date Time Temp Pulse Resp B/P Pulse Ox O2 Delivery O2 Flow Rate FiO2 05/11/17 08:00 65 05/11/17 08:00 97.2 68 22 130/75 100 05/11/17 08:00 40 05/11/17 06:00 65 05/11/17 04:00 40 05/11/17 04:00 98.4 70 30 136/72 100 05/11/17 04:00 66 05/11/17 02:48 100 40 05/11/17 02:00 58 05/11/17 00:00 66 05/11/17 00:00 98.4 70 30 136/72 100 05/11/17 00:00 40 05/10/17 22:00 71 05/10/17 20:00 98.4 70 30 136/72 100 05/10/17 20:00 70 05/10/17 20:00 40 05/10/17 19:45 100 40 05/10/17 18:00 86 05/10/17 16:10 40 05/10/17 16:00 70 05/10/17 16:00 40 05/10/17 16:00 98.9 87 30 143/67 100 Arterial Line 05/10/17 14:00 70 05/10/17 13:00 100 40 05/10/17 12:00 40 05/10/17 12:00 81 05/10/17 12:00 99.5 72 26 142/82 100 05/11/17 06:59 Intake Total 2778 ml Output Total 2250 ml Balance 528 ml Constitutional Vital Signs Date Time Temp Pulse Resp B/P Pulse Ox O2 Delivery O2 Flow Rate FiO2 05/11/17 08:00 65 05/11/17 08:00 97.2 68 22 130/75 100 05/11/17 08:00 40 05/11/17 06:00 65 05/11/17 04:00 40 05/11/17 04:00 98.4 70 30 136/72 100 05/11/17 04:00 66 05/11/17 02:48 100 40 05/11/17 02:00 58 05/11/17 00:00 66 05/11/17 00:00 98.4 70 30 136/72 100 05/11/17 00:00 40 05/10/17 22:00 71 05/10/17 20:00 98.4 70 30 136/72 100 05/10/17 20:00 70 05/10/17 20:00 40 05/10/17 19:45 100 40 05/10/17 18:00 86 05/10/17 16:10 40 05/10/17 16:00 70 05/10/17 16:00 40 05/10/17 16:00 98.9 87 30 143/67 100 Arterial Line 05/10/17 14:00 70 05/10/17 13:00 100 40 05/10/17 12:00 40 05/10/17 12:00 81 05/10/17 12:00 99.5 72 26 142/82 100 05/11/17 06:59 Intake Total 2778 ml Output Total 2250 ml Balance 528 ml (Sakina Israel) Review of Systems/Exam Exam Ms. Toledo is intubated, no IV sedatives. Eyes appear slightly open but does not focus or track No spontaneous movements. Right flap remains full, soft to palpate. Surgical wound healing well. clean and dry. Cranial Nerves: Left pupil 4, right pupil 6, b/l nonreactive. left disconjugate gaze. Prince: withdraws to all four extremities Bilateral plantar response silent. (Sakina Israel) Medications Current Medications Current Medications Medications (Trade) Dose Ordered Sig/Elida Route PRN Reason Start Time Stop Time Status Last Admin Dose Admin Dextrose (D50w (Vial) Inj) 25 ml UNSCH PRN IV PUSH HYPOGLYCEMIA-SEE COMMENTS 04/26/17 14:15 05/03/17 06:49 Pantoprazole Sodium (Protonix Inj) 40 mg DAILY IV 04/27/17 09:00 05/11/17 08:26 Ondansetron HCl (Zofran Inj) 4 mg Q6H PRN IV NAUSEA OR VOMITING 04/26/17 14:15 Miscellaneous Information 1 Q361D XX 04/26/17 14:15 Chlorhexidine Gluconate (Chlorhexidine 2% Cloth) Taper DAILY@04 TOP 04/27/17 04:00 04/23/18 03:59 05/11/17 04:00 Chlorhexidine Gluconate (Chlorhexidine 2% Cloth) 3 pack UNSCH PRN TOP HYGIENIC CARE 04/26/17 14:15 Senna/Docusate Sodium (Avelina-Colace) 1 tab BID PO 04/26/17 21:00 05/10/17 08:17 Labetalol HCl (Trandate Inj) 20 mg Q15M PRN IV PUSH sbp > 160 04/26/17 15:30 05/09/17 22:57 Hydralazine HCl 10 mg 10 mg Q30M PRN IV PUSH sbp > 160 04/26/17 15:30 05/09/17 21:47 Levetriacetam/ Sodium Chloride (Keppra Inj/NS Inj) 105 ml @ 400 mls/hr Q12H IV 04/27/17 21:00 05/11/17 08:27 Bisacodyl (Dulcolax Supp) 10 mg DAILY PRN RECTAL CONSTIPATION 04/27/17 10:30 05/01/17 08:29 Docusate Sodium (Colace) 100 mg BID PO 04/27/17 21:00 05/10/17 22:55 Calcium Gluconate 1 gm 1 gm UNSCH PRN IV SEE LABEL COMMENTS 04/27/17 10:30 04/30/17 19:04 Potassium Chloride 100 ml @ 50 mls/hr UNSCH PRN IV POTASSIUM LESS THAN 4 04/27/17 10:30 05/08/17 14:40 Magnesium Sulfate/ Sodium Chloride (Magnesium Sulfate Inj/NS Inj) 108 ml @ 108 mls/hr UNSCH PRN IV MAGNESIUM LESS THAN 2 04/27/17 10:30 05/01/17 17:56 Chlorhexidine Gluconate (Peridex 0.12% Liq) 15 ml BID@08,20 MT 04/27/17 20:00 05/11/17 08:00 Artificial Tears (Lacrilube Opht Oint) APPLY UNDER BOTH EYELIDS BID EACH EYE 04/28/17 21:00 05/11/17 08:28 Lorazepam 1 mg 1 mg Q1H PRN IV SEIZURES 04/28/17 11:15 Miscellaneous Information ml @ 0 mls/hr UNSCH IV 04/28/17 11:15 Sodium Chloride (NS Flush) 2 ml UNSCH PRN IV FLUSH SEE LABEL COMMENTS 04/28/17 11:15 05/08/17 08:47 Sodium Chloride (NS Flush) 2 ml UNSCH PRN IV FLUSH IV FLUSH 04/28/17 11:15 Artificial Tears 1 applic 1 applic Q4H PRN EACH EYE SEE LABEL COMMENTS 04/28/17 11:15 05/09/17 20:38 Phenylephrine HCl/ Sodium Chloride (Neosynephrine Inj/NS 500 ml Inj) 500 ml @ 0 mls/hr TITRATE IV 05/01/17 15:00 05/06/17 05:55 Acetaminophen 1000 mg 1,000 mg Q6H PRN IV temp > 37 05/02/17 09:45 05/10/17 22:54 Piperacillin Sod/ Tazobactam Sod (Zosyn 3.375 Gm Premix) 50 ml @ 100 mls/hr Q6H IV 05/05/17 16:00 05/11/17 23:00 05/11/17 08:27 Metoclopramide HCl (Reglan Inj) 5 mg Q8H IV PUSH 05/06/17 00:00 05/10/17 22:55 Amantadine HCl (Symmetrel Liq) 200 mg BID@07,12 PO 05/07/17 07:00 05/10/17 11:26 Hydrocortisone Sodium Succinate (SoluCORTEF INJ) 50 mg Q12HR IV PUSH 05/08/17 09:00 05/11/17 08:26 Water (Free Water) 200 ml Q6HR PO 05/08/17 07:17 05/10/17 22:55 Fluconazole 100 mg 100 mg DAILY OG-TUBE 05/09/17 20:00 05/11/17 08:27 Propofol (Diprivan 1000 Mg/100ml Inj) 100 ml @ 0 mls/hr TITRATE IV 05/10/17 17:15 05/11/17 09:28 Aspirin 325 mg 325 mg DAILY PO 05/11/17 09:00 Fentanyl Citrate 250 ml @ 0 mls/hr TITRATE IV 05/10/17 22:15 05/11/17 09:28 Iron Sucrose/ Sodium Chloride (Venofer Inj/NS Inj) 110 ml @ 110 mls/hr Q24H IV 05/11/17 14:00 05/13/17 14:59 (Sakina Israel) Medical Decision Making MDM Remarks 42 year old female with large right hemispheric CVA with mass effect and midline shift, s/p right decompressive craniectomy with placement of ICP monitor 04/27/17, ICP monitor dc'ed 05/04/17 f/u CT Head 05/09 stable right temporal intraparenchymal bleed (Sakina Israel) Plan Plan Remarks cont current care, cont follow up neuro examination for tracheostomy and PEG today ok for ASA and sq heparin (Sakina Israel) Attending Statement The exam, history, and the medical decision-making described in the above note were completed with the assistance of the mid-level provider. I reviewed and agree with the findings presented. I attest that I had a [id number] encounter with the patient on the same day, and personally performed and documented my assessment and findings in the medical record. (Garry Nathan MD) Sakina Israel May 11, 2017 10:19 Garry Nathan MD May 13, 2017 16:03
--- NOTE | 2017-05-11 11:37 | PD.PROCEDR ---
Procedure Note Procedure Procedure: Fiberoptic bronchoscopy. Indication: Guidance for percutaneous tracheostomy tube placement by Dr. Acuna Details of procedure: Informed consent was obtained. Patients neck remained in extended position. The patient was preoxygenated with 100% FiO2 on ACV ventilation via endotracheal tube and sedated with fentanyl and propofol drips and NM paralysis with Vecuronium 10 mg IV. I entered the endotracheal tube with a flexible bronchoscope. The endotracheal tube was withdrawn approximately 17 cm. An introducer needle with angiocatheter was placed in the trachea without any damage to the posterior wall. Following Blue Rhino dilation, a size 8 Shiley percutaneous tracheostomy tube was placed. I removed the bronchoscope from the endotracheal tube and inserted it through the new tracheostomy tube and visualized normal tracheal structures and tricia. I removed the bronchoscope and the tracheostomy tube was connected to the ventilator circuit. The patient tolerated the procedure well without any apparent complications. The bronchoscope was withdrawn. Saturations remained above 98-100% all times. A stat chest x-ray was ordered. Yunior Dawkins MD May 11, 2017 11:37
[2017-05-11] MEDS ORDERED: PROPOFOL 200 MG/20 ML AMP IV PUSH ONE (11:40)
--- NOTE | 2017-05-11 11:47 | RADRPT ---
EXAM DATE/TIME: 05/11/2017 10:36 [facility] COMPARISON: CHEST SINGLE AP, May 08, 2017, 11:52. INDICATIONS : Post trach placement MEDICAL HISTORY : Stroke. SURGICAL HISTORY : Craniotomy. ENCOUNTER: Initial ACUITY: 2 weeks PAIN SCORE: Non-responsive. LOCATION: Bilateral chest FINDINGS: The tracheostomy is in good position. The heart is normal in size. There are atelectatic changes in t he left lung base. These are similar to previous exam. The right subclavian lines in good position. There are mild atelectatic changes within the right lowe r lobe as well. CONCLUSION: 1. Tracheostomy in good position. 2. Atelectatic changes in the lung bases. Olivier Younger MD on May 11, 2017 at 11:44 Board Certified Radiologist. This report was verified electronically.
--- NOTE | 2017-05-11 12:26 | PD.PROCEDR ---
Procedure Note Procedure Procedure: Percutaneous tracheostomy with bronchoscopic guidance Operators: Dr. Casa Acuna for percutaneous tracheostomy, Dr. Dawkins for bronchoscopy Informed consent obtained from family and documented on chart Preoperative diagnosis: CVA, cerebral edema, acute resp failure Postoperative diagnosis: Same Anesthesia used: Versed 5 mg IV, fentanyl 200 g IV, vecuronium 10 mg IV for neuromuscular blockade. 1.5% lidocaine for local infiltration anesthesia Procedure: After ensuring adequate sedation/analgesia neuromuscular blockade, patient was positioned appropriately. Patient's ET tube was exchanged to a size 8 Thai prior to initiating tracheostomy. After sterile prepping and draping, 1% lidocaine was used for local infiltration anesthesia. Dr. Dawkins proceeded with bronchoscopy and withdrawing ET tube. Tracheal position was visualized by transillumination. Introducer Angiocath was inserted into the trachea under bronchoscopic guidance and Angiocath was advanced into the trachea following which needle was removed. A guidewire was passed via Angiocath and was visualized passing down the trachea following which Angiocath was then removed. Punch dilator was used to dilate the tracheal ring following which tracheostomy dilator assembly was mounted over the guidewire and advanced to dilate the trachea with dilator being visualized via bronchoscopic guidance entering the trachea during dilation without injuring the posterior tracheal wall. Following this dilator assembly was removed and percutaneous tracheostomy mounted over dilator was advanced over the guidewire into the trachea under direct visualization following which guidewire/dilator were removed. Bronchoscope was inserted at this point by Dr. Dawkins via newly inserted tracheostomy and appropriate placement was confirmed by visualizing tracheal rings following which bronchoscope was withdrawn and inner cannula was placed via tracheostomy. After inflating cuff patient was connected to mechanical ventilation via tracheostomy. 4 interrupted sutures were used to secure tracheostomy to neck. Patient tolerated the procedure well with no immediate complications noted. Good hemostasis was achieved at the end of procedure. Postprocedure chest x-ray was ordered and reviewed with good placement of tracheostomy noted. Patient tolerated the procedure well with no immediate competitions noted. Dr. Gracia assisted with tracheostomy during procedure. Casa Acuna MD May 11, 2017 12:26
[2017-05-11] MEDS: IRON SUCROSE INJ 200 MG in SODIUM CHLORIDE 0.9% INJ 100 ML IV SCH (13:06)
--- NOTE | 2017-05-11 13:37 | MR ---
cc: CAITLIN MEDINA M.D., JOHN, MD DATE 05/11/2017 PROCEDURE PERFORMED EGD with PEG tube placement REASON FOR PROCEDURE Dysphagia status post CVA PROCEDURE After informed consent and explaining the risks of the procedure to the patient's mother, Ms. Toledo was electively was sedated with the help of anesthesia. She is on appropriate preprocedure antibiotics. Endoscope advanced from the mouth into the second portion of the duodenum. Normal duodenum seen. The scope withdrawn through the stomach revealing some gastritis in the body and antrum. Under direct vision, a 20-Belarusian gastrostomy tube was placed in the body of the stomach with pull-through technique. The patient appeared tolerate procedure well. There were no apparent complications. IMPRESSION Successful Peg tube placement. RECOMMENDATIONS Please follow post Peg orders and post Peg protocol. MD TESSY Montalvo/PB /11:55 AM /1:35 PM
[2017-05-11] MEDS: ACETAMINOPHEN 1000 MG/100 ML VIAL IV PRN ×2 (14:48→22:35)
--- NOTE | 2017-05-11 15:02 | PD.ONC.PN ---
Subjective Subjective Remarks (seen at 11AM) Afebrile overnight. Intubated, sedated. No family members at bedside. Objective Data Date Time Temp Pulse Resp B/P Pulse Ox O2 Delivery O2 Flow Rate FiO2 05/11/17 14:00 65 05/11/17 12:00 96.5 59 22 136/88 100 05/11/17 12:00 40 05/11/17 12:00 65 05/11/17 11:52 100 50 05/11/17 10:30 50 05/11/17 10:10 100 100 05/11/17 10:00 65 05/11/17 08:00 65 05/11/17 08:00 97.2 68 22 130/75 100 05/11/17 08:00 40 05/11/17 06:00 65 05/11/17 04:00 40 05/11/17 04:00 98.4 70 30 136/72 100 05/11/17 04:00 66 05/11/17 02:48 100 40 05/11/17 02:00 58 05/11/17 00:00 66 05/11/17 00:00 98.4 70 30 136/72 100 05/11/17 00:00 40 05/10/17 22:00 71 05/10/17 20:00 98.4 70 30 136/72 100 05/10/17 20:00 70 05/10/17 20:00 40 05/10/17 19:45 100 40 05/10/17 18:00 86 05/10/17 16:10 40 05/10/17 16:00 70 05/10/17 16:00 40 05/10/17 16:00 98.9 87 30 143/67 100 Arterial Line 05/11/17 05/11/17 05/11/17 07:00 15:00 23:00 Intake Total 261 ml 589 ml Output Total 400 ml 750 ml Balance -139 ml -161 ml Result Diagram: 05/11/17 0450 05/11/17 045 Laboratory Results Laboratory Tests Test 05/10/17 05/11/17 16:23 04:50 Reticulocyte Count 4.0 % Absolute Reticulocyte Count 96.7 MIL/L Haptoglobin 210 MG/DL Iron Level 30 MCG/DL Total Iron Binding Capacity 213 MCG/DL Percent Iron Saturation 14.1 % Ferritin 345 NG/ML Total Bilirubin 0.4 MG/DL Direct Bilirubin 0.1 MG/DL Indirect Bilirubin 0.3 MG/DL Aspartate Amino Transf 49 U/L (AST/SGOT) Alanine Aminotransferase 36 U/L (ALT/SGPT) Alkaline Phosphatase 122 U/L Lactate Dehydrogenase 489 U/L Total Protein 6.0 GM/DL Albumin 2.5 GM/DL Vitamin B12 Level GREATER THAN 2000 PG/ML Folate 10.3 NG/ML Blood Type A POSITIVE Direct Antiglobulin Test NEGATIVE (Indigo) White Blood Count 15.1 TH/MM3 Red Blood Count 2.54 MIL/MM3 Hemoglobin 7.5 GM/DL Hematocrit 24.3 % Mean Corpuscular Volume 95.7 FL Mean Corpuscular Hemoglobin 29.7 PG Mean Corpuscular Hemoglobin 31.0 % Concent Red Cell Distribution Width 15.6 % Platelet Count 298 TH/MM3 Mean Platelet Volume 10.8 FL Neutrophils (%) (Auto) 84.5 % Lymphocytes (%) (Auto) 11.0 % Monocytes (%) (Auto) 3.9 % Eosinophils (%) (Auto) 0.5 % Basophils (%) (Auto) 0.1 % Neutrophils # (Auto) 12.8 TH/MM3 Lymphocytes # (Auto) 1.7 TH/MM3 Monocytes # (Auto) 0.6 TH/MM3 Eosinophils # (Auto) 0.1 TH/MM3 Basophils # (Auto) 0.0 TH/MM3 CBC Comment DIFF FINAL Differential Comment Prothrombin Time 11.3 SEC Prothromb Time International 1.0 RATIO Ratio Activated Partial 23.9 SEC Thromboplast Time Fibrinogen 306 mg/dL Sodium Level 155 MEQ/L Potassium Level 4.0 MEQ/L Chloride Level 125 MEQ/L Carbon Dioxide Level 21.7 MEQ/L Anion Gap 8 MEQ/L Blood Urea Nitrogen 46 MG/DL Creatinine 1.15 MG/DL Estimat Glomerular Filtration 51 ML/MIN Rate Random Glucose 95 MG/DL Calcium Level 8.2 MG/DL Magnesium Level 2.4 MG/DL Culture Results Microbiology Date/Time Procedure Status Source Growth 05/09/17 17:10 Gram Stain - Final Resulted Sputum Endotracheal 05/09/17 17:10 Sputum Culture - Preliminary Resulted Gram Negative Nadeem 05/09/17 17:51 Gram Stain Ordered Sputum Endotracheal Pending 05/09/17 17:51 Sputum Culture Ordered Sputum Endotracheal Pending 05/09/17 17:51 Urine Culture - Final Complete Urine Catheterized Urine Myla Albicans 05/10/17 16:30 Stool Occult Blood (MILO) - Final Complete Stool Stool HEMOCCULT NEGATIVE Imaging Studies Last 24 hours Impressions Chest X-Ray 05/11/17 0000 Signed Impressions: Service Date/Time: Thursday, May 11, 2017 10:36 - CONCLUSION: 1. Tracheostomy in good position. 2. Atelectatic changes in the lung bases. Olivier Younger MD Administered Medications Medications (Trade) Dose Ordered Sig/Elida Route PRN Reason Start Time Stop Time Status Last Admin Dose Admin Dextrose (D50w (Vial) Inj) 25 ml UNSCH PRN IV PUSH HYPOGLYCEMIA-SEE COMMENTS 04/26/17 14:15 05/03/17 06:49 Pantoprazole Sodium (Protonix Inj) 40 mg DAILY IV 04/27/17 09:00 05/11/17 08:26 Chlorhexidine Gluconate (Chlorhexidine 2% Cloth) Taper DAILY@04 TOP 04/27/17 04:00 04/23/18 03:59 05/11/17 04:00 Senna/Docusate Sodium (Avelina-Colace) 1 tab BID PO 04/26/17 21:00 05/10/17 08:17 Labetalol HCl (Trandate Inj) 20 mg Q15M PRN IV PUSH sbp > 160 04/26/17 15:30 05/09/17 22:57 Hydralazine HCl 10 mg 10 mg Q30M PRN IV PUSH sbp > 160 04/26/17 15:30 05/09/17 21:47 Levetriacetam/ Sodium Chloride (Keppra Inj/NS Inj) 105 ml @ 400 mls/hr Q12H IV 04/27/17 21:00 05/11/17 08:27 Bisacodyl (Dulcolax Supp) 10 mg DAILY PRN RECTAL CONSTIPATION 04/27/17 10:30 05/01/17 08:29 Docusate Sodium (Colace) 100 mg BID PO 04/27/17 21:00 05/10/17 22:55 Calcium Gluconate 1 gm 1 gm UNSCH PRN IV SEE LABEL COMMENTS 04/27/17 10:30 04/30/17 19:04 Potassium Chloride 100 ml @ 50 mls/hr UNSCH PRN IV POTASSIUM LESS THAN 4 04/27/17 10:30 05/08/17 14:40 Magnesium Sulfate/ Sodium Chloride (Magnesium Sulfate Inj/NS Inj) 108 ml @ 108 mls/hr UNSCH PRN IV MAGNESIUM LESS THAN 2 04/27/17 10:30 05/01/17 17:56 Chlorhexidine Gluconate (Peridex 0.12% Liq) 15 ml BID@08,20 MT 04/27/17 20:00 05/11/17 08:00 Artificial Tears (Lacrilube Opht Oint) APPLY UNDER BOTH EYELIDS BID EACH EYE 04/28/17 21:00 05/11/17 08:28 Sodium Chloride (NS Flush) 2 ml UNSCH PRN IV FLUSH SEE LABEL COMMENTS 04/28/17 11:15 05/08/17 08:47 Artificial Tears 1 applic 1 applic Q4H PRN EACH EYE SEE LABEL COMMENTS 04/28/17 11:15 05/09/17 20:38 Phenylephrine HCl/ Sodium Chloride (Neosynephrine Inj/NS 500 ml Inj) 500 ml @ 0 mls/hr TITRATE IV 05/01/17 15:00 05/06/17 05:55 Acetaminophen 1000 mg 1,000 mg Q6H PRN IV temp > 37 05/02/17 09:45 05/11/17 14:48 Piperacillin Sod/ Tazobactam Sod (Zosyn 3.375 Gm Premix) 50 ml @ 100 mls/hr Q6H IV 05/05/17 16:00 05/11/17 23:00 05/11/17 08:27 Metoclopramide HCl (Reglan Inj) 5 mg Q8H IV PUSH 05/06/17 00:00 05/10/17 22:55 Amantadine HCl (Symmetrel Liq) 200 mg BID@07,12 PO 05/07/17 07:00 05/11/17 13:06 Hydrocortisone Sodium Succinate (SoluCORTEF INJ) 50 mg Q12HR IV PUSH 05/08/17 09:00 05/11/17 08:26 Water (Free Water) 200 ml Q6HR PO 05/08/17 07:17 05/11/17 12:00 Fluconazole 100 mg 100 mg DAILY OG-TUBE 05/09/17 20:00 05/11/17 08:27 Propofol 100 ml @ 0 mls/hr TITRATE IV 05/10/17 17:15 05/11/17 09:28 Fentanyl Citrate 250 ml @ 0 mls/hr TITRATE IV 05/10/17 22:15 05/11/17 09:28 Iron Sucrose/ Sodium Chloride (Venofer Inj/NS Inj) 110 ml @ 110 mls/hr Q24H IV 05/11/17 14:00 05/13/17 14:59 05/11/17 13:06 Objective Remarks GENERAL: Intubated, sedated female, supine in bed. SKIN: Warm and dry. no bleeding from lines. HEAD: Normocephalic. EYES: No injection or drainage. NECK: Supple, trachea midline. CARDIOVASCULAR: Regular rate and rhythm RESPIRATORY: occasional rhonchi. on mechanical ventilation GASTROINTESTINAL: Abdomen nondistended. EXTREMITIES: No cyanosis NEUROLOGICAL: intubated, sedated Assessment/Plan Problem List: (1) CVA (cerebral vascular accident) Status: Acute Plan: 05/10: anti-thrombin III negative. monitor CBC. supportive care. --Massive acute MCA, status post t-PA, status post thrombectomy, status post decompressive craniotomy with cranioplasty. --no Factor V Leiden mutation. --prothrombin gene mutation negative. --no lupus anticoagulant. --protein C and S are normal. --Phospholipid antibodies negative. --Antithrombin III negative Assessment 42y/o female admitted with CVA, s/p t-PA Hematology consulted for prolonged PTT and question of hypercoagulable state. History (from initial consult): cerebral angiogram showed proximal right M1 occlusion consistent with findings on the CAT scan. --patient developed laceration of the femoral artery which was repaired by Dr. Chandler. Subsequent to that the patient's neurological condition deteriorated. MRI of the brain showed evolving right hemispheric stroke with prominent edema. The patient had developed severe mass effect and midline shift and required decompressive craniotomy and cranioplasty which was performed by Dr. Nathan on April 27. Attending Statement Patient is on the ventilator Sedated Rest of the hypercoag panel came back negative ( AT III, Homocysteine, antiphospholipid antibodies all are negative. Nothing else to offer from My standpoint Signing off Available PRN The exam, history, and the medical decision-making described in the above note were completed with the assistance of the mid-level provider. I reviewed and agree with the findings presented. I attest that I had a [id number] encounter with the patient on the same day, and personally performed and documented my assessment and findings in the medical record.. Problem Qualifiers (1) CVA (cerebral vascular accident): Qualified Code: I63.9 - Cerebrovascular accident (CVA), unspecified mechanism Yue Castorena May 11, 2017 15:02 Ruddy Ward MD May 12, 2017 06:35
[2017-05-11] MEDS: DEXTROSE 50% IN WATER 50 ML VIAL(D50) IV PUSH PRN (15:45)
[2017-05-11 15:53] LABS: PHOSPHATIDYLSERINE AB IGA LESS THAN 20.0 U/mL (()); PHOSPHATIDYLSERINE AB IGM LESS THAN 25.0 U/mL (())
[2017-05-11] MEDS: ARTIFICIAL TEARS OPTH OINT 3.5 APPLIC/3.5 GM TUBO EACH EYE PRN (20:03)
--- NOTE | 2017-05-11 20:44 | HHI.PR ---
Review/Management Diagnosis right MCA stroke, s/p iv tpa and thrombectomy of right M1 thrombus. Plan Diagnosis/Plan: Subjective Subjective Comments s/p tracheostomy and PEG tube placement Active Medications Current Medications Medications (Trade) Dose Ordered Sig/Elida Route Start Time Stop Time Status Last Admin (D50w (Vial) Inj) 25 ml UNSCH PRN IV PUSH 04/26/17 14:15 05/11/17 15:45 (Protonix Inj) 40 mg DAILY IV 04/27/17 09:00 05/11/17 08:26 (Zofran Inj) 4 mg Q6H PRN IV 04/26/17 14:15 Miscellaneous Information 1 Q361D XX 04/26/17 14:15 (Chlorhexidine 2% Cloth) Taper DAILY@04 TOP 04/27/17 04:00 04/23/18 03:59 05/11/17 04:00 (Chlorhexidine 2% Cloth) 3 pack UNSCH PRN TOP 04/26/17 14:15 (Avelina-Colace) 1 tab BID PO 04/26/17 21:00 05/10/17 08:17 (Trandate Inj) 20 mg Q15M PRN IV PUSH 04/26/17 15:30 05/09/17 22:57 Hydralazine HCl 10 mg 10 mg Q30M PRN IV PUSH 04/26/17 15:30 05/09/17 21:47 (Keppra Inj/NS Inj) 105 ml @ 400 mls/hr Q12H IV 04/27/17 21:00 05/11/17 20:03 (Dulcolax Supp) 10 mg DAILY PRN RECTAL 04/27/17 10:30 05/01/17 08:29 (Colace) 100 mg BID PO 04/27/17 21:00 05/10/17 22:55 Calcium Gluconate 1 gm 1 gm UNSCH PRN IV 04/27/17 10:30 04/30/17 19:04 Potassium Chloride 100 ml @ 50 mls/hr UNSCH PRN IV 04/27/17 10:30 05/08/17 14:40 (Magnesium Sulfate Inj/NS Inj) 108 ml @ 108 mls/hr UNSCH PRN IV 04/27/17 10:30 05/01/17 17:56 (Peridex 0.12% Liq) 15 ml BID@08,20 MT 04/27/17 20:00 05/11/17 19:50 (Lacrilube Opht Oint) APPLY UNDER BOTH EYELIDS BID EACH EYE 04/28/17 21:00 05/11/17 20:03 Lorazepam 1 mg 1 mg Q1H PRN IV 04/28/17 11:15 Miscellaneous Information ml @ 0 mls/hr UNSCH IV 04/28/17 11:15 (NS Flush) 2 ml UNSCH PRN IV FLUSH 04/28/17 11:15 05/08/17 08:47 (NS Flush) 2 ml UNSCH PRN IV FLUSH 04/28/17 11:15 Artificial Tears 1 applic 1 applic Q4H PRN EACH EYE 04/28/17 11:15 05/11/17 20:03 (Neosynephrine Inj/NS 500 ml Inj) 500 ml @ 0 mls/hr TITRATE IV 05/01/17 15:00 05/06/17 05:55 Acetaminophen 1000 mg 1,000 mg Q6H PRN IV 05/02/17 09:45 05/11/17 14:48 (Zosyn 3.375 Gm Premix) 50 ml @ 100 mls/hr Q6H IV 05/05/17 16:00 05/11/17 23:00 05/11/17 15:26 (Reglan Inj) 5 mg Q8H IV PUSH 05/06/17 00:00 05/10/17 22:55 (Symmetrel Liq) 200 mg BID@07,12 PO 05/07/17 07:00 05/11/17 13:06 (SoluCORTEF INJ) 50 mg Q12HR IV PUSH 05/08/17 09:00 05/11/17 20:03 (Free Water) 200 ml Q6HR PO 05/08/17 07:17 05/11/17 18:00 Fluconazole 100 mg 100 mg DAILY OG-TUBE 05/09/17 20:00 05/11/17 08:27 (Diprivan 1000 Mg/100ml Inj) 100 ml @ 0 mls/hr TITRATE IV 05/10/17 17:15 05/11/17 15:26 Aspirin 325 mg 325 mg DAILY PO 05/11/17 09:00 Fentanyl Citrate 250 ml @ 0 mls/hr TITRATE IV 05/10/17 22:15 05/11/17 09:28 Iron Sucrose 200 mg/Sodium Chloride 110 ml @ 110 mls/hr Q24H IV 05/11/17 14:00 05/13/17 14:59 05/11/17 13:06 (D10w Inj) 1,000 ml @ 0 mls/hr Q0M IV 05/11/17 20:45 Allergies Allergies Coded Allergies Shellfish (Verified Allergy, Unknown, 04/26/17) Exam I&O / VS 05/10/17 05/10/17 05/11/17 15:00 23:00 07:00 Intake Total 1526 ml 991 ml 261 ml Output Total 1050 ml 800 ml 400 ml Balance 476 ml 191 ml -139 ml IV Total 886 ml 581 ml 168 ml Tube Feeding 320 ml 337 ml 0 ml Lipid 73 ml 93 ml Other 320 ml Output Urine Total 550 ml 800 ml 400 ml Stool Total 500 ml 0 ml 0 ml Vital Signs Date Time Temp Pulse Resp B/P Pulse Ox O2 Delivery O2 Flow Rate FiO2 05/11/17 20:20 100 50 05/11/17 18:26 50 05/11/17 18:00 82 05/11/17 17:56 100 50 05/11/17 16:00 50 05/11/17 16:00 99.3 93 22 133/62 100 05/11/17 16:00 93 05/11/17 14:00 65 05/11/17 12:00 96.5 59 22 136/88 100 05/11/17 12:00 50 05/11/17 12:00 65 05/11/17 11:52 100 50 05/11/17 10:30 50 05/11/17 10:10 100 100 05/11/17 10:00 65 05/11/17 08:00 65 05/11/17 08:00 97.2 68 22 130/75 100 05/11/17 08:00 40 05/11/17 06:00 65 05/11/17 04:00 40 05/11/17 04:00 98.4 70 30 136/72 100 05/11/17 04:00 66 05/11/17 02:48 100 40 05/11/17 02:00 58 05/11/17 00:00 66 05/11/17 00:00 98.4 70 30 136/72 100 05/11/17 00:00 40 05/10/17 22:00 71 Exam Comments nonresponsive pupils 3 mm right nonreactive, 2 mm left and reactive, disconjugate gaze improved today does withdraw BLE to tactile stim Objective Micro and Labs Laboratory Tests Test 05/11/17 04:50 White Blood Count 15.1 Red Blood Count 2.54 Hemoglobin 7.5 Hematocrit 24.3 Mean Corpuscular Volume 95.7 Mean Corpuscular Hemoglobin 29.7 Mean Corpuscular Hemoglobin 31.0 Concent Red Cell Distribution Width 15.6 Platelet Count 298 Mean Platelet Volume 10.8 Neutrophils (%) (Auto) 84.5 Lymphocytes (%) (Auto) 11.0 Monocytes (%) (Auto) 3.9 Eosinophils (%) (Auto) 0.5 Basophils (%) (Auto) 0.1 Neutrophils # (Auto) 12.8 Lymphocytes # (Auto) 1.7 Monocytes # (Auto) 0.6 Eosinophils # (Auto) 0.1 Basophils # (Auto) 0.0 CBC Comment DIFF FINAL Differential Comment Prothrombin Time 11.3 Prothromb Time International 1.0 Ratio Activated Partial 23.9 Thromboplast Time Fibrinogen 306 Sodium Level 155 Potassium Level 4.0 Chloride Level 125 Carbon Dioxide Level 21.7 Anion Gap 8 Blood Urea Nitrogen 46 Creatinine 1.15 Estimat Glomerular Filtration 51 Rate Random Glucose 95 Calcium Level 8.2 Magnesium Level 2.4 Date/Time Procedure Status Source Growth 05/10/17 16:30 Stool Occult Blood (MILO) - Final Complete Stool Stool HEMOCCULT NEGATIVE 05/09/17 17:51 Urine Culture - Final Complete Urine Catheterized Urine Myla Albicans 05/09/17 17:51 Gram Stain Ordered Sputum Endotracheal Pending 05/09/17 17:51 Sputum Culture Ordered Sputum Endotracheal Pending 05/09/17 17:10 Gram Stain - Final Resulted Sputum Endotracheal 05/09/17 17:10 Sputum Culture - Preliminary Resulted Gram Negative Nadeem Santana Gomez PhD MD May 11, 2017 20:44
[2017-05-11] MEDS ORDERED: DEXTROSE 10% INJ 1,000 ML IV SCH (20:45)
[2017-05-12] VITALS (23 sets, daily range): BP systolic 132–158; BP diastolic 69–88; PULSE 63–98; RESP 12–28; TEMP 98.7–99.9; O2SAT 97–100
[2017-05-12] MEDS: METOCLOPRAMIDE HCL 10 MG/2 ML VIAL IV PUSH SCH ×3 (00:39→16:00)
[2017-05-12] MEDS: FREE WATER PO SCH ×4 (00:39→18:00)
[2017-05-12] MEDS: INSULIN NovoLIN REGULAR SUPPLEMENTAL SCALE SQ SCH ×5 (02:21→21:00)
[2017-05-12] MEDS: CHLORHEXIDINE GLUCONATE 2 % 1 PACK (2 CLOTHS) TOP SCH (02:46)
[2017-05-12] MEDS ORDERED: ATROPINE SULFATE 1 MG/10 ML SYRINGE ONE (03:57)
[2017-05-12] MEDS ORDERED: EPINEPHrine HCL (1:10,000) 1 MG/10 ML SYRINGE ONE (03:57)
[2017-05-12 04:26] LABS: BASOPHIL % 0.2 % (0.0-2.0); EOSINOPHIL # 0.1 TH/MM3 (0-0.4); EOSINOPHIL % 0.3 % (0.0-4.0); LYMPH % 4.4 % (9.0-44.0); MEAN CELL VOLUME 94.6 FL (80.0-100.0); MEAN CORPUSCULAR HEMOGLOBIN 29.5 PG (27.0-34.0); MEAN CORPUSCULAR HGB CONC 31.2 % (32.0-36.0); MONO % 2.1 % (0.0-8.0); PLATELET COUNT 298 TH/MM3 (150-450); RED BLOOD COUNT 2.22 MIL/MM3 (4.00-5.30); RED CELL DISTRIBUTION WIDTH 14.7 % (11.6-17.2); WHITE BLOOD COUNT 22.6 TH/MM3 (4.0-11.0)
[2017-05-12 04:29] LABS: HEMO FLAGS AUTO DIFF
--- NOTE | 2017-05-12 05:05 | RADRPT ---
EXAM DATE/TIME: 05/12/2017 04:19 [place] COMPARISON: CT BRAIN W/O CONTRAST, May 09, 2017, 8:46. INDICATIONS : Follow up cerebral edema. RADIATION DOSE: 31.92 CTDIvol (mGy) MEDICAL HISTORY : Cerebrovascular disease. SURGICAL HISTORY : Craniotomy. ENCOUNTER: Subsequent ACUITY: 2 weeks PAIN SCALE: Non-responsive LOCATION: cranial TECHNIQUE: Multiple contiguous axial images were obtained of the head. Using automated exposure control and adj ustment of the mA and/or kV according to patient size, radiation dose was kept as low as reasonably a chievable to obtain optimal diagnostic quality images. FINDINGS: Again noted is decompression craniotomy with encephalomalacia in the right frontal temporal and parietal lobes with extension into the basal ganglia and scattered areas of hemorrhage not significan tly changed. There is no mass effect. CONCLUSION: No appreciable change. Ct Serrano MD on May 12, 2017 at 5:01 Board Certified Radiologist. This report was verified electronically.
[2017-05-12 05:07] LABS: MAGNESIUM 2.2 MG/DL (1.5-2.5)
[2017-05-12] MEDS: AMANTADINE HCL SOLN 100 MG/10 ML UDC PO SCH ×2 (06:21→12:01)
[2017-05-12] MEDS: ACETAMINOPHEN 1000 MG/100 ML VIAL IV PRN ×3 (06:52→22:38)
[2017-05-12] MEDS: HYDROCORTISONE SOD SUCCINATE 100 MG VIAL IV PUSH SCH (07:40)
[2017-05-12] MEDS: DOCUSATE SODIUM 100 MG CAP PO SCH ×2 (07:40→21:00)
[2017-05-12] MEDS: FLUCONAZOLE 100 MG TAB OG-TUBE SCH (07:40)
[2017-05-12] MEDS: ASPIRIN 325 MG TAB PO SCH (07:40)
[2017-05-12] MEDS: levETIRAcetam INJ 500 MG in SODIUM CHLORIDE 0.9% INJ 100 ML IV SCH ×2 (07:41→19:51)
[2017-05-12] MEDS: PANTOPRAZOLE SODIUM 40 MG VIAL IV SCH (07:41)
[2017-05-12] MEDS: DOCUSATE SODIUM 50 MG/SENNA 8.6 MG TAB PO SCH ×2 (07:41→21:00)
[2017-05-12] MEDS: ARTIFICIAL TEARS OPTH OINT 3.5 APPLIC/3.5 GM TUBO EACH EYE SCH ×2 (07:42→21:00)
[2017-05-12] MEDS: CHLORHEXIDINE 0.12% (ORAL KIT) 15 ML CUP MT SCH ×2 (07:42→19:51)
[2017-05-12] MEDS: POTASSIUM CHLOR 40 MEQ PREMIX 100 ML IV SCH ×4 (08:51→22:43)
[2017-05-12 11:50] LABS: C. DIFF EPI 027 PRESUMPTIVE NEGATIVE (NEGATIVE); C. DIFF TOXIN PCR NEGATIVE (NEGATIVE)
--- NOTE | 2017-05-12 13:00 | HHI.CCPN ---
Subjective Remarks/Hospital Course This is a 42yF with unremarkable past medical history who presents to the [facility] emergency department with new-onset left-sided weakness and slurred speech. She is an employee of [employer] who had a witnessed onset of her symptoms at 12:45pm. In the [facility] ED she was immediately taken for non-contrasted head CT which was negative for acute hemorrhage. She was given iv tpa which was instituted 36 minutes after arrival, per my conversation with the household coordinator. She was then emergently transferred to [facility]. CT angiography demonstrated acute right m1 cut-off. She was taken by [facility] and arrived directly to the IR suite, where I met and evaluated the patient. Due to the acute nature of her illness and her dysarthria, a complete history is not obtainable. She does endorse right-sided headache, although denied any chest pain, shortness of breath. 04/27: Back from OR after right craniectomy for decompression s/p left MCA CVA. Heavily sedated. Some new history from a co-worker indicates that patient started taking oral contraceptive 2 months ago. 04/28: Continued problems with cerebral edema as expected. Push osmolality a little higher and restrict fluid. Tolerate pH mildly acidotic to avoid cerebral vascular constriction. 04/29: Osmolality in good range. ICP controlled. Hypothermia to 34 degrees. Raise to 35 slowly as long as ICP is acceptable. Unable to start tube feeds yet as gut motility will be poor at cooler temperature. 04/30: ICP control good. Osmolality acceptable. Temp to 35 degrees. 05/01: Raise temp to 36 degrees and hold. CXR with light basilar infiltrates, no leukocytosis. Heavily sedated for brain protection/ICP control. Persistent blood sugars 60s range - will start D5/NS at 30/hr. 05/02: vasopressor requirement uptrending. wbc uptrending as well. repeat head ct with persistent edema, although ICPs slightly improved. 05/03: slight improvement in vasopressors and lactate with ivf resuscitation. however, still persists on high doses of multiple vasopressors. ICPs stable. off versed. sputum growing chowdhury-sensitive e-coli. I performed critical care bedside echo this morning which demonstrated preserved biventricular function, no significant valvular lesions, ivc with 20% variability and measures at 1.6cm. by echo appears clinically euvolemic. 05/04: vasopressors significantly improved throughout the night. but remains on two vasopressors. this morning, cvp climbing. weaning off sedation. bolt removed. icp's controlled. still poor neurologic exam, despite weaning off sedation. (delayed note entry. seen and evaluated at 06:20am). 05/05: patient seen and evaluated at 06:15am. almost off vasopressors. however, renal function significantly worse. patient is non-oliguric, but failing to diurese fast enough for rising filling pressures. FIO2 up to 100% this morning. CXR with evidence of volume overload. bedside ultrasound of the lungs demonstrate trace pleural effusions with densely consolidated lung oquendo. echo with dilated ivc without respiratory variation, RVSP ~50 mmHg based on trace TR jet. preserved LV and RV function. neuro exam remains poor. 05/06: diuresed > 8L uop overnight. fio2 down to 60%. Cr stabilized. Nephrology consulted. neuro exam still poor. 05/07: continues to diurese, >7L/24h. fio2 still at 50%. Cr stable. neuro exam: starting to withdraw x 4. MRI today without evidence of new infarction on the left. 05/08: slowly improving neurologic exam. fio2 improved as well. continues to diurese, and almost at dry weight. wbc uptrending and low-grade fever. remains on broad spectrum abx. 05/09: Remains encephalopathic off sedation, orally intubated on mechanical ventilation. One unit PRBCs ordered this morning for hemoglobin 6.9. No melena or rectal bleeding per RN. 05/10: Remains encephalopathic off sedation. Withdraws all 4 extremities to pain. Remains orally intubated on mechanical ventilation. Tolerating tube feeds. 05/11: Started on propofol last evening as she began to hyperventilate and gets tachypneic while on mechanical ventilation. Currently sedated, orally intubated on mechanical ventilation. Awaiting tracheostomy and PEG tube placement. 05/12: Patient underwent tracheostomy and PEG tube placement on 05/11 which she tolerated well. Fentanyl was stopped last evening and propofol was stopped around midnight. Remains encephalopathic, on mechanical ventilation via tracheostomy. Hemoglobin dropped to 6.6, being transfused 2 units PRBCs ordered earlier. Objective Vital Signs Date Time Temp Pulse Resp B/P Pulse Ox O2 Delivery O2 Flow Rate FiO2 05/12/17 11:50 100 T-piece 6.00 40 05/12/17 10:50 99.4 72 19 148/88 Intake and Output 05/11/17 05/11/17 05/11/17 07:59 15:59 23:59 Intake Total 261 ml 589 ml 562 ml Output Total 400 ml 750 ml 600 ml Balance -139 ml -161 ml -38 ml Result Diagram: 05/12/17 0351 05/12/17 0351 Other Results Laboratory Tests Test 05/12/17 05/12/17 05/12/17 03:51 06:12 09:00 White Blood Count 22.6 TH/MM3 Red Blood Count 2.22 MIL/MM3 Hemoglobin 6.6 GM/DL Hematocrit 21.0 % Mean Corpuscular Volume 94.6 FL Mean Corpuscular Hemoglobin 29.5 PG Mean Corpuscular Hemoglobin 31.2 % Concent Red Cell Distribution Width 14.7 % Platelet Count 298 TH/MM3 Mean Platelet Volume 10.4 FL Neutrophils (%) (Auto) 93.0 % Lymphocytes (%) (Auto) 4.4 % Monocytes (%) (Auto) 2.1 % Eosinophils (%) (Auto) 0.3 % Basophils (%) (Auto) 0.2 % Neutrophils # (Auto) 21.0 TH/MM3 Lymphocytes # (Auto) 1.0 TH/MM3 Monocytes # (Auto) 0.5 TH/MM3 Eosinophils # (Auto) 0.1 TH/MM3 Basophils # (Auto) 0.0 TH/MM3 CBC Comment AUTO DIFF Differential Comment Sodium Level 153 MEQ/L Potassium Level 3.0 MEQ/L Chloride Level 124 MEQ/L Carbon Dioxide Level 20.0 MEQ/L Anion Gap 9 MEQ/L Blood Urea Nitrogen 33 MG/DL Creatinine 1.11 MG/DL Estimat Glomerular Filtration 53 ML/MIN Rate Random Glucose 85 MG/DL Calcium Level 8.4 MG/DL Magnesium Level 2.2 MG/DL Blood Type A POSITIVE Antibody Screen NEGATIVE Crossmatch Leukocyte-Reduced Red Blood Cells Blood Bank Comment Stool C. difficile Toxin (PCR) NEGATIVE Stl C. difficile Toxin PRESUMPTIVE Epiderm 027 NEGATIVE Microbiology Date/Time Procedure Status Source Growth 05/12/17 09:53 Aerobic Blood Culture Received Blood Line Pending 05/12/17 09:53 Anaerobic Blood Culture Received Blood Line Pending 05/10/17 16:30 Stool Occult Blood (MILO) - Final Complete Stool Stool HEMOCCULT NEGATIVE 05/09/17 17:51 Urine Culture - Final Complete Urine Catheterized Urine Tej Albicans 05/09/17 17:51 Gram Stain Ordered Sputum Endotracheal Pending 05/09/17 17:51 Sputum Culture Ordered Sputum Endotracheal Pending 05/09/17 17:10 Gram Stain - Final Complete Sputum Endotracheal 05/09/17 17:10 Sputum Culture - Final Complete Escherichia Coli Imaging Last [address] 05/09/17 0800 Signed Impressions: Service Date/Time: Tuesday, May 09, 2017 08:46 - CONCLUSION: 1. Stable areas of acute intraparenchymal hemorrhage within the right temporal and parietal lobes with the largest area measuring 3 cm. Extensive cytotoxic edema is also noted throughout the right middle cerebral artery distribution and is stable. There is persistent herniation of the right temporal, parietal and frontal lobes through the right craniectomy defect which is stable. Nam Rivas MD Head CT 05/08/17 0000 Signed Impressions: Service Date/Time: Monday, May 08, 2017 13:20 - CONCLUSION: Evolving subacute right middle cerebral artery distribution infarct. 3.2 cm acute parenchymal hemorrhage has developed within the infarcted and herniated right temporal lobe. Minimal midline shift. Juancho Dolan MD Chest X-Ray 05/08/17 0000 Signed Impressions: Service Date/Time: Monday, May 08, 2017 11:52 - CONCLUSION: 1. New right subclavian central venous catheter with tip at the atriocaval junction. No pneumothorax. 2. Unchanged other lines and tubes, including a left internal jugular central venous catheter with tip in the right atrium. 3. Left greater than right basilar consolidation, both sides improved. Juancho Dolan MD Last 24 hours Impressions Chest X-Ray 05/05/17 0000 Signed Impressions: Service Date/Time: April 03:59 - CONCLUSION: Prominent bibasilar infiltrates. Tubes and catheters are all in good position Bertin White MD Objective Remarks gen: middle-aged female, lying in bed, encephalopathic heent: Positive pallor, no icterus. Tongue moist. Pupils 3 members bilaterally reactive neck: Tracheostomy in place chest: On mechanical ventilation via tracheostomy. Good air entry bilaterally to decrease at bases, scattered rhonchi, no wheezing. cv: S1-S2 regular no gallop or murmur. abd: soft, nontender, nondistended. no guarding. extr: no peripheral edema. distal pulses palpable, well perfused. neuro: Remains encephalopathic, minimal eye opening occasionally, pupils are now 3mm, equal and reactive. withdraws x 4. Weak gag. Urinary Catheter: Yes Assessment to: Continue Vascular Central Line Catheter: Yes Assessment to: Continue A/P Assessment and Plan Assessment: 42yF with acute right M1 MCA CVA now s/p systemic TPA and attempted interventional mechanical thrombectomy. Her course is complicated by malignant cerebral edema requiring decompressive craniectomy and therapeutic hypothermia. She remains with cerebral edema, off pressors now. Plan by Systems: Neuro: Acute right M1 MCA CVA s/p systemic TPA and endovascular thrombectomy Dysarthria Left-sided hemiparesis Left-sided facial droop Malignant Cerebral Edema s/p Decompressive Craniectomy Elevated ICP -- Continue neuro checks -- Off fentanyl since 05/11 evening. Propofol off since midnight 05/11. -- repeat EEG 05/04: generalized slowing. ?ictal focus over right hemisphere. -- repeat head CT 05/02, 05/04: stable edema, slightly enlarged left lateral ventricle, evolving right hemispheric cva. Head CT 05/08 and 05/09 with right temporoparietal 3cm intraparenchymal hemorrhage in herniated area. Neurosurgery following. -- Off hyperosmolar therapy. slowly normalize sodium. -- Folow sodium levels -- SBP goal 110 - 160. -- keppra for seizure ppx -- Started on aspirin 325 mg daily on 05/12 (cleared by Dr. Nathan) Respiratory: Acute hypoxic and Hypercarbic respiratory failure --S/p perc tracheostomy on 05/11. Daily C Pap trials and if tolerated we will initiate T piece trials as tolerated. -- wean fio2 for goal spo2 > 90% -- vent bundle -- elevated HOB Cardiovascular Septic Shock- resolved Relative Adrenal Insufficiency Acute intravascular volume overload -- goal sbp 110 - 160 -- off vasopressors. Tapering hydrocortisone. Decreased to 50 mg IV daily on and will stop on 05/15. -- cvp monitoring. Renal: Acute Kidney Injury -- likely multifactorial at this point including ATN. -- continue ribera with strict i/o's -- Remains on free water via OGT. -- Off bumex drip/ Diamox since 05/08 -- Monitor and replete electrolytes, follow BUN/creatinine FEN/GI Acute protein calorie malnutrition- mild Hypernatremia Lactic Acidosis- resolved. Anion-gap metabolic acidosis- resolved. Metabolic Alkalosis secondary to intravascular contraction -- TF, nepro. -- ICU electrolyte protocol -- Monitor and replete electrolytes. -- diamox 500mg iv q8h - stopped 05/08 -- Free water per tube: 200 q6h. Nephrology started D5W on 05/09, stopped on 05/10 Heme/ID: Anemia secondary to acute blood loss Sepsis/Leukocytosis E. Coli Pneumonia, likely secondary to aspiration at time of stroke -- Completed 10 days of Zosyn on 05/11. -- sputum culture 05/01, 05/09: e.coli, chowdhury sensitive -- urine, blood cultures 05/02 NGTD. -- daily cbc. Labs suggest iron deficiency. Initiated iron sucrose 200 mg IV daily 3 days on 05/11. 2 units PRBCs being transfused on 05/12 for hemoglobin 6.6. No overt evidence of GI blood loss. No evidence of bleeding from tracheostomy or PEG tube site. -- leukocytosis is concerning, CVL replaced 05/08, urine culture with Tej from 05/08, replaced Ribera and resent urine culture on 05/09 which is also growing tej. Started fluconazole 100 mg via OG tube daily on 05/09. Completed Zosyn day #10 on 05/11. Leukocytosis noted. Blood cultures 2 repeated on 05/12. Stool for C. difficile negative on 05/12. Planning CT abdomen pelvis without contrast in view of drop in hemoglobin and leukocytosis. Lipase to be checked. Endo: Hypoglycemia- improved. Adrenal Insufficiency -- Off d10w, glycemic control improved. -- frequent glucose checks. -- out of shock. decrease hydrocortisone to 50 mg iv daily on 05/12, will stop hydrocortisone on 05/15 (Random cortisol while in shock was 6) Prophy: -- SCDs -- pepcid iv for gi prophylaxis Lines: -- LIJ TLC-discontinued 05/08. Right subclavian central line placed 05/08 -- right radial art line 05/05 Discussed with patient's mother at bedside in detail on 05/11, 05/12. Discussed current clinical status and plan of care and family voiced understanding and was agreeable. Casa Acuna MD May 12, 2017 13:00 discontinuously in the care and management of this patient. This time is exclusive of procedures, and includes, but is not limited to, evaluation of the patient, review of the medical record, discussions with family, consultants, nursing staff, or respiratory therapy, and documentation in the medical record. Casa Acuna MD May 12, 2017 13:00
[2017-05-12] MEDS: IRON SUCROSE INJ 200 MG in SODIUM CHLORIDE 0.9% INJ 100 ML IV SCH (13:17)
[2017-05-12] MEDS: ENOXAPARIN SODIUM 40 MG/0.4 ML SYRINGE SQ SCH (13:17)
--- NOTE | 2017-05-12 15:00 | HHI.GIFU ---
Subjective Remarks Resting in bed. Family at bedside. H/H 7.5/24.3-----> 6.6/21.0. No obvious bleeding. Tolerating TF. Febrile. WBC went up. (Maria R Roca) Objective Vitals I&O Vital Signs Date Time Temp Pulse Resp B/P Pulse Ox O2 Delivery O2 Flow Rate FiO2 05/12/17 12:00 66 05/12/17 12:00 99.3 66 22 135/77 99 05/12/17 11:50 100 T-piece 6.00 40 05/12/17 10:50 99.4 72 19 148/88 100 05/12/17 10:05 99.4 69 17 136/79 100 05/12/17 10:00 67 05/12/17 09:40 99.4 68 16 132/77 100 05/12/17 08:15 100 50 05/12/17 08:00 99.9 93 18 144/85 100 05/12/17 08:00 68 05/12/17 08:00 50 05/12/17 06:00 94 05/12/17 04:10 100 100 05/12/17 04:00 98.7 67 13 146/69 100 05/12/17 04:00 67 05/12/17 04:00 50 05/12/17 02:00 98 05/12/17 00:51 100 50 05/12/17 00:00 50 05/12/17 00:00 82 05/12/17 00:00 99.7 98 12 132/72 100 05/11/17 23:11 23 05/11/17 22:00 82 05/11/17 20:20 100 50 05/11/17 20:00 84 05/11/17 20:00 50 05/11/17 20:00 99.2 84 18 134/76 100 05/11/17 18:26 50 05/11/17 18:00 82 05/11/17 17:56 100 50 05/11/17 16:00 50 05/11/17 16:00 99.3 93 22 133/62 100 05/11/17 16:00 93 I/O 05/11/17 05/11/17 05/11/17 05/12/17 05/12/17 05/12/17 07:00 15:00 23:00 07:00 15:00 23:00 Intake Total 261 ml 589 ml 562 ml 688 ml 1438 ml Output Total 400 ml 750 ml 600 ml 400 ml 850 ml Balance -139 ml -161 ml -38 ml 288 ml 588 ml IV Total 168 ml 389 ml 462 ml 288 ml 738 ml Tube Feeding 0 ml 0 ml Lipid 93 ml Packed Cells 500 ml Other 200 ml 100 ml 400 ml 200 ml Output Urine Total 400 ml 450 ml 550 ml 200 ml 350 ml Stool Total 0 ml 300 ml 50 ml 200 ml 500 ml Laboratory Laboratory Tests Test 05/12/17 05/12/17 05/12/17 03:51 06:12 09:00 White Blood Count 22.6 Red Blood Count 2.22 Hemoglobin 6.6 Hematocrit 21.0 Mean Corpuscular Volume 94.6 Mean Corpuscular Hemoglobin 29.5 Mean Corpuscular Hemoglobin 31.2 Concent Red Cell Distribution Width 14.7 Platelet Count 298 Mean Platelet Volume 10.4 Neutrophils (%) (Auto) 93.0 Lymphocytes (%) (Auto) 4.4 Monocytes (%) (Auto) 2.1 Eosinophils (%) (Auto) 0.3 Basophils (%) (Auto) 0.2 Neutrophils # (Auto) 21.0 Lymphocytes # (Auto) 1.0 Monocytes # (Auto) 0.5 Eosinophils # (Auto) 0.1 Basophils # (Auto) 0.0 CBC Comment AUTO DIFF Differential Comment Sodium Level 153 Potassium Level 3.0 Chloride Level 124 Carbon Dioxide Level 20.0 Anion Gap 9 Blood Urea Nitrogen 33 Creatinine 1.11 Estimat Glomerular Filtration 53 Rate Random Glucose 85 Calcium Level 8.4 Magnesium Level 2.2 Blood Type A POSITIVE Antibody Screen NEGATIVE Crossmatch Leukocyte-Reduced Red Blood Cells Blood Bank Comment Stool C. difficile Toxin (PCR) NEGATIVE Stl C. difficile Toxin PRESUMPTIVE Epiderm 027 NEGATIVE Date/Time Procedure Status Source Growth 05/12/17 09:53 Aerobic Blood Culture Received Blood Line Pending 05/12/17 09:53 Anaerobic Blood Culture Received Blood Line Pending 05/10/17 16:30 Stool Occult Blood (MILO) - Final Complete Stool Stool HEMOCCULT NEGATIVE 05/09/17 17:51 Urine Culture - Final Complete Urine Catheterized Urine Myla Albicans 05/09/17 17:51 Gram Stain Ordered Sputum Endotracheal Pending 05/09/17 17:51 Sputum Culture Ordered Sputum Endotracheal Pending 05/09/17 17:10 Gram Stain - Final Complete Sputum Endotracheal 05/09/17 17:10 Sputum Culture - Final Complete Escherichia Coli Imaging Last Impressions Head CT 05/12/17 0600 Signed Impressions: Service Date/Time: April 04:19 - CONCLUSION: No appreciable change. Ct Serrano MD Chest X-Ray 05/11/17 0000 Signed Impressions: Service Date/Time: Thursday, May 11, 2017 10:36 - CONCLUSION: 1. Tracheostomy in good position. 2. Atelectatic changes in the lung bases. Olivier Younger MD Brain MRI 05/07/17 0000 Signed Impressions: Service Date/Time: Sunday, May 07, 2017 10:19 - CONCLUSION: Interval improvement. Significant hemorrhagic inversion remains in the deep white matter structures involving head of the caudate globus pallidus, anterior limb of internal capsule and part of the posterior limb. There are no new areas of ischemia. There are scattered areas of lenticular type hemorrhage involving the cortical surface of the left sylvian region that is new from the comparison study. There is no evidence for an evolving infarct in the left hemisphere. Phuc Younger MD FACR Neck CTA 04/26/17 1316 Signed Impressions: Service Date/Time: Wednesday, April 26, 2017 13:39 - CONCLUSION: 1. Standard 3 vessel arch anatomy. 2. Widely patent carotid arteries. 3. Dominant left vertebral artery. Vertebral arteries are patent bilaterally. 4. 5 mm right thyroid nodule. This can be further evaluated with ultrasound on an outpatient basis. Cyrus Orozco MD Head CTA 04/26/17 1316 Signed Impressions: Service Date/Time: Wednesday, April 26, 2017 13:39 - CONCLUSION: 1. Occlusion of the right M1 segment. Grossly intact mendoza-white matter differentiation with gross ASPECT score of 10/10. 2. Incidental finding of 5 mm right thyroid nodule. This can be further evaluated with ultrasound on an outpatient basis. Cyrus Orozco MD Cerebral Arteriogram 04/26/17 0000 Signed Impressions: Service Date/Time: Wednesday, April 26, 2017 14:57 - CONCLUSION: 1. Proximal right M1 occlusion consistent with findings on CT exam. 2. Numerous mechanical thrombectomy attempts due to challenging thrombus extraction and rethrombosis following thrombectomy. In total, ten separate thrombectomy attempts were performed yielding TICI 2b recanalization. Cyrus Orozco MD Physical Exam HEENT: Incision line right scalp CHEST: Course breath sounds, OETT to vent. CARDIAC: RRR ABDOMEN: Soft, nondistended, nontender; no hepatosplenomegaly; bowel sounds are present in all four quadrants. PEG tube site without redness or swelling. EXTREMITIES: No clubbing, cyanosis, or edema. SKIN: Normal; no rash; no jaundice. CORRECTIONS OFFICER: Pt eyes closed, does not follow commands, withdraws to pain. Moved bilateral upper extremities spontaneously. (Maria R Roca CARGO SURVEYOR) Assessment and Plan Plan ASSESSMENT: - Dysphagia, FEN. Currently hospitalized with acute right M1 MCA CVA, respiratory failure, adrenal insufficiency, acute kidney injury with electrolyte abnormalities, anemia, acute protein calorie malnutrition, and E. Coli pneumonia, who remains on the ventilator for airway protection. GI has been consulted for PEG tube placement. She has OGT and is receiving Nepro with a goal rate of 40 mls/hr, as recommended by the loom fixer helper. S/P EGD with PEG tube placement (05/12/17). Site looks well- no redness, swelling, or drainage. HH did drop to 6.6/21.0. No obvious bleeding. Also with fever, increase in WBC. Will get CT scan abdomen and pelvis today. NPO until CT scan done. - Anemia with drop in Hgb. HH 6.6/21.0. No obvious bleeding. Will get CT scan abdomen and pelvis today without contrast given drop in hgb and fever/ leukocytosis. - Leukocytosis/Fever. WBC 22.6. CT scan abdomen and pelvis. CDiff negative. D/W Dr. Acuna, will also check lipase as there is no obvious reason for her leukocytosis. - Acute right M1 MCA CVA, Cerebral edema, s/p TPA. S/P Decompressive craniectomy per NSx/Neurology - Respiratory failure, E. Coli Pneumonia. S/P Abx. S/P vent - FADUMO, electrolyte abnormalities. Creat 1.11, improving. Na 153, K+ 3.0 PLAN: - NPO for now - CT scan abdomen and pelvis without contrast - Lipase - Monitor HH - Transfuse as necessary - CBC, BMP in am - Supportive care - Further recommendations to follow based on results of above - PT seen and examined by Dr. Rich and myself and this note is written on his behalf (Maria R Roca) Physician Comments Seen and examined, no gross bleeding but decrease in H/H, and WBC went up. Check CT abd/pelvis. No bleeding in G tube , or at the site. (Francisco Rich MD ) Maria R Roca May 12, 2017 15:00 Francisco Rich MD May 12, 2017 15:33
[2017-05-12 17:35] LABS: HEMATOCRIT 26.8 % (35.0-46.0); REVIEW FLAG FINAL
--- NOTE | 2017-05-12 17:37 | EKG ---
Date Performed: 05/11/2017 Time Performed: 21:57:32 PTAGE: 42 years EKG: Sinus rhythm . Extensive T wave changes Suspect sinus rhythm, however baseline wandering artifact limits Accuracy of interpretation. Normal ECG PREVIOUS TRACING : 05/06/2017 21.24 DOCTOR: Hank Matute Interpretating Date/Time 05/12/2017 17:35:41
--- NOTE | 2017-05-12 17:47 | RADRPT ---
EXAM DATE/TIME: 05/12/2017 16:12 [place] COMPARISON: CT BRAIN W/O CONTRAST, May 12, 2017, 4:19. INDICATIONS : Drop in HGB ,increase in white blood count,evaluate for bleed. ORAL CONTRAST: No oral contrast ingested. RADIATION DOSE: 9.96 CTDIvol (mGy) MEDICAL HISTORY : Cerebrovascular disease. SURGICAL HISTORY : Craniotomy. ENCOUNTER: Initial ACUITY: 1 day PAIN SCALE: Non-responsive LOCATION: Abdomen TECHNIQUE: Volumetric scanning of the abdomen and pelvis was performed. Using automated exposure control and ad justment of the mA and/or kV according to patient size, radiation dose was kept as low as reasonably achievable to obtain optimal diagnostic quality images. FINDINGS: Imaging through the lower chest demonstrates consolidative changes in both lower lobes. There is no s ignificant pleural effusion. The appearance of the liver, spleen, pancreas, adrenal glands and kidneys is within normal limits by noncontrast CT imaging. There is a feeding tube in satisfactory position. The visualized loops of small and large bowel are u nremarkable. No free fluid is seen within the abdomen. Note is made of some punctate collections of free intraperitoneal air in the anterior upper abdomen. Presumably, this is from the patient's gastrostomy tube. There is no free fluid within the pelvis. No iliac or inguinal adenopathy is seen. Note is made of a rectal tube and Head catheter. Note is made of some punctate collections of air in the intra-abdominal wall presumably from Lovenox administration. CONCLUSION: 1. No findings to indicate acute intra-abdominal hemorrhage. 2. There are some punctate collections of free intraperitoneal air in the upper abdomen presumably fr om the patient's gastrostomy tube. 3. Consolidative changes in both lung bases. Olivier Younger MD on May 12, 2017 at 17:42 Board Certified Radiologist. This report was verified electronically.
[2017-05-12] MEDS: ARTIFICIAL TEARS OPTH OINT 3.5 APPLIC/3.5 GM TUBO EACH EYE PRN (19:52)
--- NOTE | 2017-05-12 20:30 | HHI.PR ---
Review/Management Diagnosis right MCA stroke, s/p iv tpa and thrombectomy of right M1 thrombus. , CT today stable Plan Diagnosis/Plan: Subjective Subjective Comments No acute events reported Active Medications Current Medications Medications (Trade) Dose Ordered Sig/Elida Route Start Time Stop Time Status Last Admin (D50w (Vial) Inj) 25 ml UNSCH PRN IV PUSH 04/26/17 14:15 05/11/17 15:45 (Protonix Inj) 40 mg DAILY IV 04/27/17 09:00 05/12/17 07:41 (Zofran Inj) 4 mg Q6H PRN IV 04/26/17 14:15 Miscellaneous Information 1 Q361D XX 04/26/17 14:15 (Chlorhexidine 2% Cloth) Taper DAILY@04 TOP 04/27/17 04:00 04/23/18 03:59 05/11/17 04:00 (Chlorhexidine 2% Cloth) 3 pack UNSCH PRN TOP 04/26/17 14:15 (Avelnia-Colace) 1 tab BID PO 04/26/17 21:00 05/10/17 08:17 (Trandate Inj) 20 mg Q15M PRN IV PUSH 04/26/17 15:30 05/09/17 22:57 Hydralazine HCl 10 mg 10 mg Q30M PRN IV PUSH 04/26/17 15:30 05/09/17 21:47 (Keppra Inj/NS Inj) 105 ml @ 400 mls/hr Q12H IV 04/27/17 21:00 05/12/17 19:51 (Dulcolax Supp) 10 mg DAILY PRN RECTAL 04/27/17 10:30 05/01/17 08:29 (Colace) 100 mg BID PO 04/27/17 21:00 05/12/17 07:40 Calcium Gluconate 1 gm 1 gm UNSCH PRN IV 04/27/17 10:30 04/30/17 19:04 Potassium Chloride 100 ml @ 50 mls/hr UNSCH PRN IV 04/27/17 10:30 05/08/17 14:40 (Magnesium Sulfate Inj/NS Inj) 108 ml @ 108 mls/hr UNSCH PRN IV 04/27/17 10:30 05/01/17 17:56 (Peridex 0.12% Liq) 15 ml BID@08,20 MT 04/27/17 20:00 05/12/17 19:51 (Lacrilube Opht Oint) APPLY UNDER BOTH EYELIDS BID EACH EYE 04/28/17 21:00 05/12/17 07:42 Lorazepam 1 mg 1 mg Q1H PRN IV 04/28/17 11:15 Miscellaneous Information ml @ 0 mls/hr UNSCH IV 04/28/17 11:15 (NS Flush) 2 ml UNSCH PRN IV FLUSH 04/28/17 11:15 05/08/17 08:47 (NS Flush) 2 ml UNSCH PRN IV FLUSH 04/28/17 11:15 Artificial Tears 1 applic 1 applic Q4H PRN EACH EYE 04/28/17 11:15 05/12/17 19:52 (Neosynephrine Inj/NS 500 ml Inj) 500 ml @ 0 mls/hr TITRATE IV 05/01/17 15:00 05/06/17 05:55 (Ofirmev Inj) 1,000 mg Q6H PRN IV 05/02/17 09:45 05/12/17 17:24 (Reglan Inj) 5 mg Q8H IV PUSH 05/06/17 00:00 05/12/17 07:41 (Symmetrel Liq) 200 mg BID@07,12 PO 05/07/17 07:00 05/12/17 12:01 (Free Water) 200 ml Q6HR PO 05/08/17 07:17 05/12/17 18:00 Fluconazole 100 mg 100 mg DAILY OG-TUBE 05/09/17 20:00 05/12/17 07:40 (Diprivan 1000 Mg/100ml Inj) 100 ml @ 0 mls/hr TITRATE IV 05/10/17 17:15 05/11/17 15:26 Aspirin 325 mg 325 mg DAILY PO 05/11/17 09:00 05/12/17 07:40 Iron Sucrose 200 mg/Sodium Chloride 110 ml @ 110 mls/hr Q24H IV 05/11/17 14:00 05/13/17 14:59 05/12/17 13:17 (D10w Inj) 1,000 ml @ 10 mls/hr Q24H IV 05/11/17 20:45 05/11/17 20:45 (Lovenox Inj) 40 mg Q24H SQ 05/12/17 13:00 05/12/17 13:17 Hydrocortisone Sodium Succinate 50 mg 50 mg DAILY IV PUSH 05/13/17 09:00 05/15/17 12:00 (KCl 40 Meq Premix Inj) 100 ml @ 50 mls/hr Q2H IV 05/12/17 20:00 05/12/17 23:59 05/12/17 19:53 Allergies Allergies Coded Allergies Shellfish (Verified Allergy, Unknown, 04/26/17) Exam I&O / VS 05/11/17 05/11/17 05/12/17 15:00 23:00 07:00 Intake Total 589 ml 562 ml 688 ml Output Total 750 ml 600 ml 400 ml Balance -161 ml -38 ml 288 ml IV Total 389 ml 462 ml 288 ml Tube Feeding 0 ml Other 200 ml 100 ml 400 ml Output Urine Total 450 ml 550 ml 200 ml Stool Total 300 ml 50 ml 200 ml Vital Signs Date Time Temp Pulse Resp B/P Pulse Ox O2 Delivery O2 Flow Rate FiO2 05/12/17 18:02 63 05/12/17 17:15 97 50 05/12/17 17:00 50 05/12/17 16:00 78 05/12/17 16:00 99.9 84 28 155/84 100 05/12/17 15:55 100 05/12/17 14:00 78 05/12/17 12:00 66 05/12/17 12:00 99.3 66 22 135/77 99 05/12/17 11:50 100 T-piece 6.00 40 05/12/17 10:50 99.4 72 19 148/88 100 05/12/17 10:05 99.4 69 17 136/79 100 05/12/17 10:00 67 05/12/17 09:40 99.4 68 16 132/77 100 05/12/17 09:32 100 50 05/12/17 08:15 100 50 05/12/17 08:00 99.9 93 18 144/85 100 05/12/17 08:00 68 05/12/17 08:00 50 05/12/17 06:00 94 05/12/17 04:10 100 100 05/12/17 04:00 98.7 67 13 146/69 100 05/12/17 04:00 67 05/12/17 04:00 50 05/12/17 02:00 98 05/12/17 00:51 100 50 05/12/17 00:00 50 05/12/17 00:00 82 05/12/17 00:00 99.7 98 12 132/72 100 05/11/17 23:11 23 05/11/17 22:00 82 Exam Comments nonresponsive pupils 3 mm right nonreactive, 2 mm left and reactive, disconjugate gaze improved today does withdraw BLE to tactile stim Objective Micro and Labs Laboratory Tests Test 05/12/17 05/12/17 05/12/17 05/12/17 03:51 06:12 09:00 17:10 White Blood Count 22.6 Red Blood Count 2.22 Hemoglobin 6.6 9.1 Hematocrit 21.0 26.8 Mean Corpuscular Volume 94.6 Mean Corpuscular Hemoglobin 29.5 Mean Corpuscular Hemoglobin 31.2 Concent Red Cell Distribution Width 14.7 Platelet Count 298 Mean Platelet Volume 10.4 Neutrophils (%) (Auto) 93.0 Lymphocytes (%) (Auto) 4.4 Monocytes (%) (Auto) 2.1 Eosinophils (%) (Auto) 0.3 Basophils (%) (Auto) 0.2 Neutrophils # (Auto) 21.0 Lymphocytes # (Auto) 1.0 Monocytes # (Auto) 0.5 Eosinophils # (Auto) 0.1 Basophils # (Auto) 0.0 CBC Comment AUTO DIFF Differential Comment Sodium Level 153 Potassium Level 3.0 3.2 Chloride Level 124 Carbon Dioxide Level 20.0 Anion Gap 9 Blood Urea Nitrogen 33 Creatinine 1.11 Estimat Glomerular Filtration 53 Rate Random Glucose 85 Calcium Level 8.4 Magnesium Level 2.2 Lipase 344 Blood Type A POSITIVE Antibody Screen NEGATIVE Crossmatch Leukocyte-Reduced Red Blood Cells Blood Bank Comment Stool C. difficile Toxin (PCR) NEGATIVE Stl C. difficile Toxin PRESUMPTIVE Epiderm 027 NEGATIVE Date/Time Procedure Status Source Growth 05/12/17 09:53 Aerobic Blood Culture Received Blood Line Pending 05/12/17 09:53 Anaerobic Blood Culture Received Blood Line Pending 05/10/17 16:30 Stool Occult Blood (MILO) - Final Complete Stool Stool HEMOCCULT NEGATIVE 05/09/17 17:51 Urine Culture - Final Complete Urine Catheterized Urine Myla Albicans 05/09/17 17:51 Gram Stain Ordered Sputum Endotracheal Pending 05/09/17 17:51 Sputum Culture Ordered Sputum Endotracheal Pending 05/09/17 17:10 Gram Stain - Final Complete Sputum Endotracheal 05/09/17 17:10 Sputum Culture - Final Complete Escherichia Coli Santana Gomez PhD May 12, 2017 20:30
[2017-05-13] VITALS (18 sets, daily range): BP systolic 143–152; BP diastolic 70–81; PULSE 66–111; RESP 20–28; TEMP 98.8–100.6; O2SAT 96–100
[2017-05-13] MEDS: INSULIN NovoLIN REGULAR SUPPLEMENTAL SCALE SQ SCH ×5 (03:00→21:00)
[2017-05-13] MEDS: ACETAMINOPHEN 1000 MG/100 ML VIAL IV PRN ×3 (03:35→20:55)
[2017-05-13] MEDS: CHLORHEXIDINE GLUCONATE 2 % 1 PACK (2 CLOTHS) TOP SCH (03:36)
[2017-05-13] MEDS: FREE WATER PO SCH ×5 (06:00→23:51)
[2017-05-13 06:07] LABS: AUTOMATED NEUTROPHIL # 12.7 TH/MM3 (1.8-7.7); BASOPHIL # 0.1 TH/MM3 (0-0.2); BASOPHIL % 0.5 % (0.0-2.0); EOSINOPHIL # 0.5 TH/MM3 (0-0.4); EOSINOPHIL % 3.2 % (0.0-4.0); HEMATOCRIT 24.5 % (35.0-46.0); HEMO FLAGS DIFF FINAL; LYMPH % 7.2 % (9.0-44.0); LYMPHOCYTE # 1.1 TH/MM3 (1.0-4.8); MEAN CELL VOLUME 90.1 FL (80.0-100.0); MEAN CORPUSCULAR HEMOGLOBIN 30.3 PG (27.0-34.0); MEAN CORPUSCULAR HGB CONC 33.6 % (32.0-36.0); MONO % 8.3 % (0.0-8.0); NEUT % 80.8 % (16.0-70.0); PLATELET COUNT 325 TH/MM3 (150-450); RED BLOOD COUNT 2.72 MIL/MM3 (4.00-5.30); RED CELL DISTRIBUTION WIDTH 15.7 % (11.6-17.2); WHITE BLOOD COUNT 15.7 TH/MM3 (4.0-11.0)
[2017-05-13] MEDS: AMANTADINE HCL SOLN 100 MG/10 ML UDC PO SCH ×2 (06:09→11:11)
[2017-05-13 06:27] LABS: ANION GAP 9 MEQ/L (5-15); BICARBONATE 18.9 MEQ/L (21.0-32.0); BLOOD UREA NITROGEN 24 MG/DL (7-18); CHLORIDE 122 MEQ/L (98-107); GLOMERULAR FILTRATION RATE 58 ML/MIN (>89); POTASSIUM 3.2 MEQ/L (3.5-5.1); SODIUM (NA) 150 MEQ/L (136-145)
[2017-05-13 06:31] LABS: ALKALINE PHOSPHATASE 157 U/L (45-117); ALT (GPT) 54 U/L (10-53); AST (GOT) 49 U/L (15-37); TOTAL BILIRUBIN ADULT 0.5 MG/DL (0.2-1.0)
[2017-05-13] MEDS: METOCLOPRAMIDE HCL 10 MG/2 ML VIAL IV PUSH SCH ×4 (07:36→23:48)
[2017-05-13] MEDS: HYDROCORTISONE SOD SUCCINATE 100 MG VIAL IV PUSH SCH (08:14)
[2017-05-13] MEDS: DOCUSATE SODIUM 50 MG/SENNA 8.6 MG TAB PO SCH ×2 (08:14→21:00)
[2017-05-13] MEDS: ASPIRIN 325 MG TAB PO SCH (08:14)
[2017-05-13] MEDS: PANTOPRAZOLE SODIUM 40 MG VIAL IV SCH (08:14)
[2017-05-13] MEDS: DOCUSATE SODIUM 100 MG CAP PO SCH ×2 (08:14→21:00)
[2017-05-13] MEDS: FLUCONAZOLE 100 MG TAB OG-TUBE SCH (08:14)
[2017-05-13] MEDS: ARTIFICIAL TEARS OPTH OINT 3.5 APPLIC/3.5 GM TUBO EACH EYE SCH ×2 (08:14→21:00)
[2017-05-13] MEDS: levETIRAcetam INJ 500 MG in SODIUM CHLORIDE 0.9% INJ 100 ML IV SCH ×2 (08:14→20:55)
[2017-05-13] MEDS: CHLORHEXIDINE 0.12% (ORAL KIT) 15 ML CUP MT SCH ×2 (08:14→23:51)
[2017-05-13] MEDS: POTASSIUM CHLOR 20 MEQ PREMIX 100 ML IV PRN (08:15)
[2017-05-13] MEDS: hydrALAZINE HCL 20 MG/ML VIAL IV PUSH PRN (11:11)
--- NOTE | 2017-05-13 11:32 | HHI.CCPN ---
Subjective Remarks/Hospital Course This is a 42yF with unremarkable past medical history who presents to the [facility] emergency department with new-onset left-sided weakness and slurred speech. She is an employee of [email or web address] who had a witnessed onset of her symptoms at 12:45pm. In the [facility] ED she was immediately taken for non-contrasted head CT which was negative for acute hemorrhage. She was given iv tpa which was instituted 36 minutes after arrival, per my conversation with the office coordinator. She was then emergently transferred to [facility]. CT angiography demonstrated acute right m1 cut-off. She was taken by [facility] and arrived directly to the IR suite, where I met and evaluated the patient. Due to the acute nature of her illness and her dysarthria, a complete history is not obtainable. She does endorse right-sided headache, although denied any chest pain, shortness of breath. 04/27: Back from OR after right craniectomy for decompression s/p left MCA CVA. Heavily sedated. Some new history from a co-worker indicates that patient started taking oral contraceptive 2 months ago. 04/28: Continued problems with cerebral edema as expected. Push osmolality a little higher and restrict fluid. Tolerate pH mildly acidotic to avoid cerebral vascular constriction. 04/29: Osmolality in good range. ICP controlled. Hypothermia to 34 degrees. Raise to 35 slowly as long as ICP is acceptable. Unable to start tube feeds yet as gut motility will be poor at cooler temperature. 04/30: ICP control good. Osmolality acceptable. Temp to 35 degrees. 05/01: Raise temp to 36 degrees and hold. CXR with light basilar infiltrates, no leukocytosis. Heavily sedated for brain protection/ICP control. Persistent blood sugars 60s range - will start D5/NS at 30/hr. 05/02: vasopressor requirement uptrending. wbc uptrending as well. repeat head ct with persistent edema, although ICPs slightly improved. 05/03: slight improvement in vasopressors and lactate with ivf resuscitation. however, still persists on high doses of multiple vasopressors. ICPs stable. off versed. sputum growing chowdhury-sensitive e-coli. I performed critical care bedside echo this morning which demonstrated preserved biventricular function, no significant valvular lesions, ivc with 20% variability and measures at 1.6cm. by echo appears clinically euvolemic. 05/04: vasopressors significantly improved throughout the night. but remains on two vasopressors. this morning, cvp climbing. weaning off sedation. bolt removed. icp's controlled. still poor neurologic exam, despite weaning off sedation. (delayed note entry. seen and evaluated at 06:20am). 05/05: patient seen and evaluated at 06:15am. almost off vasopressors. however, renal function significantly worse. patient is non-oliguric, but failing to diurese fast enough for rising filling pressures. FIO2 up to 100% this morning. CXR with evidence of volume overload. bedside ultrasound of the lungs demonstrate trace pleural effusions with densely consolidated lung oquendo. echo with dilated ivc without respiratory variation, RVSP ~50 mmHg based on trace TR jet. preserved LV and RV function. neuro exam remains poor. 05/06: diuresed > 8L uop overnight. fio2 down to 60%. Cr stabilized. Nephrology consulted. neuro exam still poor. 05/07: continues to diurese, >7L/24h. fio2 still at 50%. Cr stable. neuro exam: starting to withdraw x 4. MRI today without evidence of new infarction on the left. 05/08: slowly improving neurologic exam. fio2 improved as well. continues to diurese, and almost at dry weight. wbc uptrending and low-grade fever. remains on broad spectrum abx. 05/09: Remains encephalopathic off sedation, orally intubated on mechanical ventilation. One unit PRBCs ordered this morning for hemoglobin 6.9. No melena or rectal bleeding per RN. 05/10: Remains encephalopathic off sedation. Withdraws all 4 extremities to pain. Remains orally intubated on mechanical ventilation. Tolerating tube feeds. 05/11: Started on propofol last evening as she began to hyperventilate and gets tachypneic while on mechanical ventilation. Currently sedated, orally intubated on mechanical ventilation. Awaiting tracheostomy and PEG tube placement. 05/12: Patient underwent tracheostomy and PEG tube placement on 05/11 which she tolerated well. Fentanyl was stopped last evening and propofol was stopped around midnight. Remains encephalopathic, on mechanical ventilation via tracheostomy. Hemoglobin dropped to 6.6, being transfused 2 units PRBCs ordered earlier. 05/13: Encephalopathic on mechanical ventilation via tracheostomy. On C Pap trial currently. Did tolerate TPs for about 6 hours yesterday. Objective Vital Signs Date Time Temp Pulse Resp B/P Pulse Ox O2 Delivery O2 Flow Rate FiO2 05/13/17 11:13 98 40 05/13/17 10:00 75 05/13/17 08:00 99.7 25 151/79 05/12/17 11:50 T-piece 6.00 Intake and Output 05/12/17 05/12/17 05/13/17 08:00 16:00 00:00 Intake Total 688 ml 1438 ml 693 ml Output Total 400 ml 850 ml 500 ml Balance 288 ml 588 ml 193 ml Result Diagram: 05/13/17 0545 05/13/17 0545 Other Results Microbiology Date/Time Procedure Status Source Growth 05/10/17 16:30 Stool Occult Blood (MILO) - Final Complete Stool Stool HEMOCCULT NEGATIVE Imaging Last [address] 05/09/17 0800 Signed Impressions: Service Date/Time: Tuesday, May 09, 2017 08:46 - CONCLUSION: 1. Stable areas of acute intraparenchymal hemorrhage within the right temporal and parietal lobes with the largest area measuring 3 cm. Extensive cytotoxic edema is also noted throughout the right middle cerebral artery distribution and is stable. There is persistent herniation of the right temporal, parietal and frontal lobes through the right craniectomy defect which is stable. Nam Rivas MD Head CT 05/08/17 0000 Signed Impressions: Service Date/Time: Monday, May 08, 2017 13:20 - CONCLUSION: Evolving subacute right middle cerebral artery distribution infarct. 3.2 cm acute parenchymal hemorrhage has developed within the infarcted and herniated right temporal lobe. Minimal midline shift. Juancho Dolan MD Chest X-Ray 05/08/17 0000 Signed Impressions: Service Date/Time: Monday, May 08, 2017 11:52 - CONCLUSION: 1. New right subclavian central venous catheter with tip at the atriocaval junction. No pneumothorax. 2. Unchanged other lines and tubes, including a left internal jugular central venous catheter with tip in the right atrium. 3. Left greater than right basilar consolidation, both sides improved. Juancho Dolan MD Last 24 hours Impressions Chest X-Ray 05/05/17 0000 Signed Impressions: Service Date/Time: April 03:59 - CONCLUSION: Prominent bibasilar infiltrates. Tubes and catheters are all in good position Bertin White MD Objective Remarks gen: middle-aged female, lying in bed, encephalopathic heent: Positive pallor, no icterus. Tongue moist. Pupils 3 members bilaterally reactive neck: Tracheostomy in place chest: On mechanical ventilation via tracheostomy. Good air entry bilaterally, decreased at bases, scattered rhonchi, no wheezing. cv: S1-S2 regular no gallop or murmur. abd: soft, nontender, nondistended. no guarding. extr: no peripheral edema. distal pulses palpable, well perfused. neuro: Remains encephalopathic, minimal eye opening occasionally, pupils are now 3mm, equal and reactive. withdraws x 4. Weak gag. Urinary Catheter: Yes Assessment to: Continue Vascular Central Line Catheter: Yes Line: Central Venous Catheter A/P Assessment and Plan Assessment: 42yF with acute right M1 MCA CVA now s/p systemic TPA and attempted interventional mechanical thrombectomy. Her course is complicated by malignant cerebral edema requiring decompressive craniectomy and therapeutic hypothermia. She remains with cerebral edema, off pressors now. Plan by Systems: Neuro: Acute right M1 MCA CVA s/p systemic TPA and endovascular thrombectomy Dysarthria Left-sided hemiparesis Left-sided facial droop Malignant Cerebral Edema s/p Decompressive Craniectomy Elevated ICP -- Continue neuro checks -- Off fentanyl since 05/11 evening. Propofol off since midnight 05/11. -- repeat EEG 05/04: generalized slowing. ?ictal focus over right hemisphere. -- repeat head CT 05/02, 05/04: stable edema, slightly enlarged left lateral ventricle, evolving right hemispheric cva. Head CT 05/08 and 05/09 with right temporoparietal 3cm intraparenchymal hemorrhage in herniated area. Neurosurgery following. -- Off hyperosmolar therapy. slowly normalize sodium. -- Folow sodium levels -- SBP goal 110 - 160. -- keppra for seizure ppx -- Started on aspirin 325 mg daily on 05/12 (cleared by Dr. Nathan) Respiratory: Acute hypoxic and Hypercarbic respiratory failure --S/p perc tracheostomy on 05/11. Daily C Pap/ T piece trials as tolerated -- wean fio2 for goal spo2 > 90% -- vent bundle -- elevated HOB Cardiovascular Septic Shock- resolved Relative Adrenal Insufficiency Acute intravascular volume overload -- goal sbp 110 - 160 -- off vasopressors. Tapering hydrocortisone. Decreased to 50 mg IV daily on and will stop on 05/15. Renal: Acute Kidney Injury -- likely multifactorial at this point including ATN. -- continue ribera with strict i/o's -- Remains on free water via OGT. -- Off bumex drip/ Diamox since 05/08 -- Monitor and replete electrolytes, follow BUN/creatinine FEN/GI Acute protein calorie malnutrition- mild Hypernatremia Lactic Acidosis- resolved. Anion-gap metabolic acidosis- resolved. Metabolic Alkalosis secondary to intravascular contraction -- TF, Jevity -- ICU electrolyte protocol -- Monitor and replete electrolytes. -- diamox 500mg iv q8h - stopped 05/08 -- Free water per tube: 200 q6h. Nephrology started D5W on 05/09, stopped on 05/10 Heme/ID: Anemia secondary to acute blood loss Sepsis/Leukocytosis E. Coli Pneumonia, likely secondary to aspiration at time of stroke -- Completed 10 days of Zosyn on 05/11. -- sputum culture 05/01, 05/09: e.coli, chowdhury sensitive -- urine, blood cultures 05/02 NGTD. -- daily cbc. Labs suggest iron deficiency. Initiated iron sucrose 200 mg IV daily 3 days on 05/11. 2 units PRBCs being transfused on 05/12 for hemoglobin 6.6. No overt evidence of GI blood loss. No evidence of bleeding from tracheostomy or PEG tube site. CT abdomen pelvis done on 05/12 with no evidence of retroperitoneal bleed. -- leukocytosis is concerning, CVL replaced 05/08, urine culture with Tej from 05/08, replaced Ribera and resent urine culture on 05/09 which is also growing tej. Started fluconazole 100 mg via OG tube daily on 05/09. Completed Zosyn day #10 on 05/11. Leukocytosis noted. Blood cultures 2 repeated on 05/12. Stool for C. difficile negative on 05/12. CT abdomen pelvis without contrast(05/12) in view of drop in hemoglobin and leukocytosis did not reveal any evidence of retroperitoneal or intraperitoneal bleed. No fluid collections noted. Endo: Hypoglycemia- improved. Adrenal Insufficiency -- Off d10w, glycemic control improved. -- frequent glucose checks. -- out of shock. decrease hydrocortisone to 50 mg iv daily on 05/12, will stop hydrocortisone on 05/15 (Random cortisol while in shock was 6) Prophy: -- SCDs, lovenox for DVT prophylaxis started 05/12(cleared by Dr. Nathan) -- pepcid iv for gi prophylaxis Lines: -- LIJ TLC-discontinued 05/08. Right subclavian central line placed 05/08 -- right radial art line 05/05- discontinued 05/11 Discussed with patient's mother at bedside in detail on 05/11, 05/12. Discussed current clinical status and plan of care and family voiced understanding and was agreeable. Discussed current clinical status and plan of care with patient's brother at bedside on 05/13 and he voiced understanding and was agreeable. Family meeting planned for later today. Casa Acuna MD May 13, 2017 11:31
[2017-05-13] MEDS: ENOXAPARIN SODIUM 40 MG/0.4 ML SYRINGE SQ SCH (12:33)
[2017-05-13] MEDS: IRON SUCROSE INJ 200 MG in SODIUM CHLORIDE 0.9% INJ 100 ML IV SCH (13:56)
--- NOTE | 2017-05-13 14:03 | HHI.GIFU ---
Subjective Remarks Pt on vent. Per RN tolerating TF w/ no residual. Objective Vitals I&O Vital Signs Date Time Temp Pulse Resp B/P Pulse Ox O2 Delivery O2 Flow Rate FiO2 05/13/17 12:00 99.3 84 27 147/70 96 05/13/17 12:00 98 05/13/17 12:00 40 05/13/17 11:13 98 40 05/13/17 10:00 75 05/13/17 08:00 71 05/13/17 08:00 99.7 106 25 151/79 98 05/13/17 08:00 50 05/13/17 07:39 98 50 05/13/17 06:00 86 05/13/17 04:19 98 50 05/13/17 04:00 86 05/13/17 04:00 99.8 73 24 143/78 98 05/13/17 04:00 50 05/13/17 02:00 88 05/13/17 00:30 100 50 05/13/17 00:00 99.6 66 20 145/80 100 05/13/17 00:00 50 05/13/17 00:00 66 05/12/17 22:00 73 05/12/17 21:08 99 50 05/12/17 20:00 50 05/12/17 20:00 50 05/12/17 20:00 64 05/12/17 20:00 99.6 64 24 158/76 100 05/12/17 18:02 63 05/12/17 17:15 97 50 05/12/17 17:00 50 05/12/17 16:00 78 05/12/17 16:00 99.9 84 28 155/84 100 05/12/17 15:55 100 05/12/17 14:00 78 I/O 05/12/17 05/12/17 05/12/17 05/13/17 05/13/17 05/13/17 07:00 15:00 23:00 07:00 15:00 23:00 Intake Total 688 ml 1438 ml 693 ml 235 ml Output Total 400 ml 850 ml 500 ml 550 ml Balance 288 ml 588 ml 193 ml -315 ml IV Total 288 ml 738 ml 493 ml 235 ml Packed Cells 500 ml Other 400 ml 200 ml 200 ml Output Urine Total 200 ml 350 ml 350 ml 400 ml Stool Total 200 ml 500 ml 150 ml 150 ml Laboratory Laboratory Tests Test 05/12/17 05/13/17 17:10 05:45 Hemoglobin 9.1 8.2 Hematocrit 26.8 24.5 Potassium Level 3.2 3.2 White Blood Count 15.7 Red Blood Count 2.72 Mean Corpuscular Volume 90.1 Mean Corpuscular Hemoglobin 30.3 Mean Corpuscular Hemoglobin 33.6 Concent Red Cell Distribution Width 15.7 Platelet Count 325 Mean Platelet Volume 10.0 Neutrophils (%) (Auto) 80.8 Lymphocytes (%) (Auto) 7.2 Monocytes (%) (Auto) 8.3 Eosinophils (%) (Auto) 3.2 Basophils (%) (Auto) 0.5 Neutrophils # (Auto) 12.7 Lymphocytes # (Auto) 1.1 Monocytes # (Auto) 1.3 Eosinophils # (Auto) 0.5 Basophils # (Auto) 0.1 CBC Comment DIFF FINAL Differential Comment Sodium Level 150 Chloride Level 122 Carbon Dioxide Level 18.9 Anion Gap 9 Blood Urea Nitrogen 24 Creatinine 1.04 Estimat Glomerular Filtration 58 Rate Random Glucose 108 Calcium Level 8.3 Total Bilirubin 0.5 Aspartate Amino Transf 49 (AST/SGOT) Alanine Aminotransferase 54 (ALT/SGPT) Alkaline Phosphatase 157 Total Protein 6.2 Albumin 2.2 Date/Time Procedure Status Source Growth 05/12/17 09:53 Aerobic Blood Culture - Preliminary Resulted Blood Line NO GROWTH IN 1 DAY 05/12/17 09:53 Anaerobic Blood Culture - Preliminary Resulted Blood Line NO GROWTH IN 1 DAY 05/10/17 16:30 Stool Occult Blood (MILO) - Final Complete Stool Stool HEMOCCULT NEGATIVE 05/09/17 17:51 Urine Culture - Final Complete Urine Catheterized Urine Myla Albicans 05/09/17 17:51 Gram Stain Ordered Sputum Endotracheal Pending 05/09/17 17:51 Sputum Culture Ordered Sputum Endotracheal Pending 05/09/17 17:10 Gram Stain - Final Complete Sputum Endotracheal 05/09/17 17:10 Sputum Culture - Final Complete Escherichia Coli Imaging Last Impressions Head CT 05/12/17 0600 Signed Impressions: Service Date/Time: April 04:19 - CONCLUSION: No appreciable change. Ct Serrano MD Abdomen/Pelvis CT 05/12/17 0000 Signed Impressions: Service Date/Time: April 16:12 - CONCLUSION: 1. No findings to indicate acute intra-abdominal hemorrhage. 2. There are some punctate collections of free intraperitoneal air in the upper abdomen presumably from the patient's gastrostomy tube. 3. Consolidative changes in both lung bases. Olivier Younger MD Chest X-Ray 05/11/17 0000 Signed Impressions: Service Date/Time: Thursday, May 11, 2017 10:36 - CONCLUSION: 1. Tracheostomy in good position. 2. Atelectatic changes in the lung bases. Olivier Younger MD Brain MRI 05/07/17 Signed Impressions: Service Date/Time: Sunday, May 07, 2017 10:19 - CONCLUSION: Interval improvement. Significant hemorrhagic inversion remains in the deep white matter structures involving head of the caudate globus pallidus, anterior limb of internal capsule and part of the posterior limb. There are no new areas of ischemia. There are scattered areas of lenticular type hemorrhage involving the cortical surface of the left sylvian region that is new from the comparison study. There is no evidence for an evolving infarct in the left hemisphere. Phuc Younger MD FACR Neck CTA 04/26/176 Signed Impressions: Service Date/Time: Wednesday, April 26, 2017 13:39 - CONCLUSION: 1. Standard 3 vessel arch anatomy. 2. Widely patent carotid arteries. 3. Dominant left vertebral artery. Vertebral arteries are patent bilaterally. 4. 5 mm right thyroid nodule. This can be further evaluated with ultrasound on an outpatient basis. Cyrus Orozco MD Head CTA 04/26/176 Signed Impressions: Service Date/Time: Wednesday, April 26, 2017 13:39 - CONCLUSION: 1. Occlusion of the right M1 segment. Grossly intact mendoza-white matter differentiation with gross ASPECT score of 10/10. 2. Incidental finding of 5 mm right thyroid nodule. This can be further evaluated with ultrasound on an outpatient basis. Cyrus Orozco MD Cerebral Arteriogram 04/26/17 0000 Signed Impressions: Service Date/Time: Wednesday, April 26, 2017 14:57 - CONCLUSION: 1. Proximal right M1 occlusion consistent with findings on CT exam. 2. Numerous mechanical thrombectomy attempts due to challenging thrombus extraction and rethrombosis following thrombectomy. In total, ten separate thrombectomy attempts were performed yielding TICI 2b recanalization. Cyrus Orozco MD Physical Exam HEENT: Incision line right scalp CHEST: Course breath sounds, trach to vent. CARDIAC: RRR ABDOMEN: Soft, nondistended, nontender; no hepatosplenomegaly; bowel sounds are present in all four quadrants. PEG tube site without redness or swelling. EXTREMITIES: No clubbing, cyanosis, or edema. SKIN: Normal; no rash; no jaundice. [employer]: Pt eyes closed, does not follow commands, withdraws to pain. Moved bilateral lower extremities spontaneously. Assessment and Plan Plan ASSESSMENT: - Dysphagia, FEN. Currently hospitalized with acute right M1 MCA CVA, respiratory failure, adrenal insufficiency, acute kidney injury with electrolyte abnormalities, anemia, acute protein calorie malnutrition, and E. Coli pneumonia, who remains on the ventilator for airway protection. GI was consulted for PEG tube placement. Tolerating TF, no residuals. Site looks well- no redness, swelling, or drainage. HH did drop to 6.6/21.0. is now up to 8.2 No obvious bleeding. Also with fever, increase in WBC. Will get CT scan abdomen and pelvis today. NPO until CT scan done. - Anemia with drop in Hgb. Hgb 8.2. No obvious bleeding. CT --> 1. No findings to indicate acute intra-abdominal hemorrhage. 2. There are some punctate collections of free intraperitoneal air in the upper abdomen presumably from the patient's gastrostomy tube. 3. Consolidative changes in both lung bases. - Leukocytosis/Fever. WBC 15.7. CT scan abdomen and pelvis. CDiff negative. lipase 344. CT as above. - Acute right M1 MCA CVA, Cerebral edema, s/p TPA. S/P Decompressive craniectomy per NSx/Neurology - Respiratory failure, E. Coli Pneumonia. S/P Abx. S/P vent - FADUMO, electrolyte abnormalities. Creat 1.11, improving. Na 153, K+ 3.0 PLAN: - Monitor HH - Transfuse as necessary - Supportive care GI will sign off for now. Please reconsult if needed. - PT seen and examined by Dr. Rich and myself and this note is written on his behalf Sarahi Lorenzana May 13, 2017 14:03
--- NOTE | 2017-05-13 17:13 | PD.ID.CON ---
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 Zosyn was stopped 2 days ago She developped diarrhea after the abx, but her C.diff test was negative She has small amopunt of ETT secretions, Her urine clx is + for yeast. 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 No ETOH. No Illicit Drugs. Physical Exam Vital Signs Vital Signs Date Time Temp Pulse Resp B/P Pulse Ox O2 Delivery O2 Flow Rate FiO2 05/13/17 14:39 40 05/13/17 14:00 86 05/13/17 12:00 99.3 84 27 147/70 96 05/13/17 12:00 98 05/13/17 12:00 40 05/13/17 11:13 98 40 05/13/17 10:00 75 05/13/17 08:00 71 05/13/17 08:00 99.7 106 25 151/79 98 05/13/17 08:00 50 05/13/17 07:39 98 50 05/13/17 06:00 86 05/13/17 04:19 98 50 05/13/17 04:00 86 05/13/17 04:00 99.8 73 24 143/78 98 05/13/17 04:00 50 05/13/17 02:00 88 05/13/17 00:30 100 50 05/13/17 00:00 99.6 66 20 145/80 100 05/13/17 00:00 50 05/13/17 00:00 66 05/12/17 22:00 73 05/12/17 21:08 99 50 05/12/17 20:00 50 05/12/17 20:00 50 05/12/17 20:00 64 05/12/17 20:00 99.6 64 24 158/76 100 05/12/17 18:02 63 05/12/17 17:15 97 50 Physical Exam CONSTITUTIONAL/GENERAL: This is an adequately nourished patient, in no apparent distress. TUBES/LINES/DRAINS: SKIN: No jaundice, rashes, or lesions. Skin temperature appropriate. Not diaphoretic. HEAD: Buldging noted on R parieatal/temporal area clean, dry well approximated R pairieal inciosn. EYES: Pupils are reactive. Anizocoria, R>>L No injection or drainage. Fundi not examined. ENT: Hearing not tested. Nose without bleeding or purulent drainage. Oral mucosae with visible thrush NECK: Trachea midline. Supple, nontender. CARDIOVASCULAR: Regular rate and rhythm without murmurs, gallops, or rubs. No JVD. Peripheral pulses symmetric. RESPIRATORY/CHEST: Symmetric, unlabored respirations. Clear to auscultation. Breath sounds equal bilaterally. No wheezes, rales, or rhonchi. GASTROINTESTINAL: Abdomen soft, non-tender, mildly distended. No hepato- splenomegaly, or palpable masses. No guarding. Bowel sounds present. Fecal collection system in placwe with liquid brown stool GENITOURINARY: Without palpable bladder distension. Head catheter in place with clear yellow MUSCULOSKELETAL: Extremities without clubbing, cyanosis, or edema. No joint tenderness or effusion noted. No calf tenderness. No mottling or clubbing. LYMPHATICS: No palpable cervical or supraclavicular adenopathy. NEUROLOGICAL: Off sedateion. Obtunded, but reacts to touch Not follows commands. Noted to move spontaneously all extremities. Rigidity og LUE noted PSYCHIATRIC: unable to assess Laboratory Laboratory Tests Test 05/13/17 05:45 White Blood Count 15.7 Red Blood Count 2.72 Hemoglobin 8.2 Hematocrit 24.5 Mean Corpuscular Volume 90.1 Mean Corpuscular Hemoglobin 30.3 Mean Corpuscular Hemoglobin 33.6 Concent Red Cell Distribution Width 15.7 Platelet Count 325 Mean Platelet Volume 10.0 Neutrophils (%) (Auto) 80.8 Lymphocytes (%) (Auto) 7.2 Monocytes (%) (Auto) 8.3 Eosinophils (%) (Auto) 3.2 Basophils (%) (Auto) 0.5 Neutrophils # (Auto) 12.7 Lymphocytes # (Auto) 1.1 Monocytes # (Auto) 1.3 Eosinophils # (Auto) 0.5 Basophils # (Auto) 0.1 CBC Comment DIFF FINAL Differential Comment Sodium Level 150 Potassium Level 3.2 Chloride Level 122 Carbon Dioxide Level 18.9 Anion Gap 9 Blood Urea Nitrogen 24 Creatinine 1.04 Estimat Glomerular Filtration 58 Rate Random Glucose 108 Calcium Level 8.3 Total Bilirubin 0.5 Aspartate Amino Transf 49 (AST/SGOT) Alanine Aminotransferase 54 (ALT/SGPT) Alkaline Phosphatase 157 Total Protein 6.2 Albumin 2.2 Date/Time Procedure Status Source Growth 05/12/17 09:53 Aerobic Blood Culture - Preliminary Resulted Blood Line NO GROWTH IN 1 DAY 05/12/17 09:53 Anaerobic Blood Culture - Preliminary Resulted Blood Line NO GROWTH IN 1 DAY 05/10/17 16:30 Stool Occult Blood (MILO) - Final Complete Stool Stool HEMOCCULT NEGATIVE 05/09/17 17:51 Urine Culture - Final Complete Urine Catheterized Urine Myla Albicans 05/09/17 17:51 Gram Stain Ordered Sputum Endotracheal Pending 05/09/17 17:51 Sputum Culture Ordered Sputum Endotracheal Pending 05/09/17 17:10 Gram Stain - Final Complete Sputum Endotracheal 05/09/17 17:10 Sputum Culture - Final Complete Escherichia Coli Result Diagram: 05/13/17 0545 05/13/17 0545 Imaging Last Impressions Head CT 05/12/17 0600 Signed Impressions: Service Date/Time: April 04:19 - CONCLUSION: No appreciable change. Ct Serrano MD Abdomen/Pelvis CT 05/12/17 0000 Signed Impressions: Service Date/Time: April 16:12 - CONCLUSION: 1. No findings to indicate acute intra-abdominal hemorrhage. 2. There are some punctate collections of free intraperitoneal air in the upper abdomen presumably from the patient's gastrostomy tube. 3. Consolidative changes in both lung bases. Olivier Younger MD Chest X-Ray 05/11/17 0000 Signed Impressions: Service Date/Time: Thursday, May 11, 2017 10:36 - CONCLUSION: 1. Tracheostomy in good position. 2. Atelectatic changes in the lung bases. Olivier Younger MD Brain MRI 05/07/17 0000 Signed Impressions: Service Date/Time: Sunday, May 07, 2017 10:19 - CONCLUSION: Interval improvement. Significant hemorrhagic inversion remains in the deep white matter structures involving head of the caudate globus pallidus, anterior limb of internal capsule and part of the posterior limb. There are no new areas of ischemia. There are scattered areas of lenticular type hemorrhage involving the cortical surface of the left sylvian region that is new from the comparison study. There is no evidence for an evolving infarct in the left hemisphere. Phuc Younger MD FACR Neck CTA 04/26/[id number] Signed Impressions: Service Date/Time: Wednesday, April 26, 2017 13:39 - CONCLUSION: 1. Standard 3 vessel arch anatomy. 2. Widely patent carotid arteries. 3. Dominant left vertebral artery. Vertebral arteries are patent bilaterally. 4. 5 mm right thyroid nodule. This can be further evaluated with ultrasound on an outpatient basis. Cyrus Orozco MD Head CTA 04/26/171315 Signed Impressions: Service Date/Time: Wednesday, April 26, 2017 13:39 - CONCLUSION: 1. Occlusion of the right M1 segment. Grossly intact mendoza-white matter differentiation with gross ASPECT score of 10/10. 2. Incidental finding of 5 mm right thyroid nodule. This can be further evaluated with ultrasound on an outpatient basis. Cyrus Orozco MD Cerebral Arteriogram 04/26/17 0000 Signed Impressions: Service Date/Time: Wednesday, April 26, 2017 14:57 - CONCLUSION: 1. Proximal right M1 occlusion consistent with findings on CT exam. 2. Numerous mechanical thrombectomy attempts due to challenging thrombus extraction and rethrombosis following thrombectomy. In total, ten separate thrombectomy attempts were performed yielding TICI 2b recanalization. Cyrus Orozco MD Assessment and Plan Assessment and Plan Acute R MCA ischemic strokje with hemorrhagic transformation Fever ? centra Leukocytosis Recent PNA, sp treatment, E.coli Acute VDRF, failure to wean Fungria, oral thrush Abx asociated liquid diarrhea, C.diff negative - chk procalcitoninc - monitor temps, WBC - monitor clincially - cont fluconazole Discussed Condition With RN Dr Acuna mother @ b/s Larisa Matute MD May 13, 2017 17:13
--- NOTE | 2017-05-13 18:11 | HHI.PR ---
Review/Management Diagnosis right MCA stroke, s/p iv tpa and thrombectomy of right M1 thrombus. Plan Diagnosis/Plan: Subjective Subjective Comments No acute events reported Active Medications Current Medications Medications (Trade) Dose Ordered Sig/Elida Route Start Time Stop Time Status Last Admin (D50w (Vial) Inj) 25 ml UNSCH PRN IV PUSH 04/26/17 14:15 05/11/17 15:45 (Protonix Inj) 40 mg DAILY IV 04/27/17 09:00 05/13/17 08:14 (Zofran Inj) 4 mg Q6H PRN IV 04/26/17 14:15 Miscellaneous Information 1 Q361D XX 04/26/17 14:15 (Chlorhexidine 2% Cloth) Taper DAILY@04 TOP 04/27/17 04:00 04/23/18 03:59 05/13/17 03:36 (Chlorhexidine 2% Cloth) 3 pack UNSCH PRN TOP 04/26/17 14:15 (Avelina-Colace) 1 tab BID PO 04/26/17 21:00 05/10/17 08:17 (Trandate Inj) 20 mg Q15M PRN IV PUSH 04/26/17 15:30 05/09/17 22:57 Hydralazine HCl 10 mg 10 mg Q30M PRN IV PUSH 04/26/17 15:30 05/13/17 11:11 (Keppra Inj/NS Inj) 105 ml @ 400 mls/hr Q12H IV 04/27/17 21:00 05/13/17 08:14 (Dulcolax Supp) 10 mg DAILY PRN RECTAL 04/27/17 10:30 05/01/17 08:29 (Colace) 100 mg BID PO 04/27/17 21:00 05/12/17 07:40 Calcium Gluconate 1 gm 1 gm UNSCH PRN IV 04/27/17 10:30 04/30/17 19:04 Potassium Chloride 100 ml @ 50 mls/hr UNSCH PRN IV 04/27/17 10:30 05/13/17 08:15 (Magnesium Sulfate Inj/NS Inj) 108 ml @ 108 mls/hr UNSCH PRN IV 04/27/17 10:30 05/01/17 17:56 (Peridex 0.12% Liq) 15 ml BID@08,20 MT 04/27/17 20:00 05/13/17 08:14 (Lacrilube Opht Oint) APPLY UNDER BOTH EYELIDS BID EACH EYE 04/28/17 21:00 05/13/17 08:14 Lorazepam 1 mg 1 mg Q1H PRN IV 04/28/17 11:15 Miscellaneous Information ml @ 0 mls/hr UNSCH IV 04/28/17 11:15 (NS Flush) 2 ml UNSCH PRN IV FLUSH 04/28/17 11:15 05/08/17 08:47 (NS Flush) 2 ml UNSCH PRN IV FLUSH 04/28/17 11:15 Artificial Tears 1 applic 1 applic Q4H PRN EACH EYE 04/28/17 11:15 05/12/17 19:52 (Neosynephrine Inj/NS 500 ml Inj) 500 ml @ 0 mls/hr TITRATE IV 05/01/17 15:00 05/06/17 05:55 (Ofirmev Inj) 1,000 mg Q6H PRN IV 05/02/17 09:45 05/13/17 09:52 (Reglan Inj) 5 mg Q8H IV PUSH 05/06/17 00:00 05/12/17 07:41 (Symmetrel Liq) 200 mg BID@07,12 PO 05/07/17 07:00 05/13/17 11:11 (Free Water) 200 ml Q6HR PO 05/08/17 07:17 05/13/17 11:11 Fluconazole 100 mg 100 mg DAILY OG-TUBE 05/09/17 20:00 05/13/17 08:14 (Diprivan 1000 Mg/100ml Inj) 100 ml @ 0 mls/hr TITRATE IV 05/10/17 17:15 05/11/17 15:26 Aspirin 325 mg 325 mg DAILY PO 05/11/17 09:00 05/13/17 08:14 (D10w Inj) 1,000 ml @ 10 mls/hr Q24H IV 05/11/17 20:45 05/11/17 20:45 (Lovenox Inj) 40 mg Q24H SQ 05/12/17 13:00 05/13/17 12:33 (SoluCORTEF INJ) 50 mg DAILY IV PUSH 05/13/17 09:00 05/15/17 12:00 05/13/17 08:14 Allergies Allergies Coded Allergies Shellfish (Verified Allergy, Unknown, 04/26/17) Exam I&O / VS 05/12/17 05/12/17 05/13/17 15:00 23:00 07:00 Intake Total 1438 ml 693 ml 235 ml Output Total 850 ml 500 ml 550 ml Balance 588 ml 193 ml -315 ml IV Total 738 ml 493 ml 235 ml Packed Cells 500 ml Other 200 ml 200 ml Output Urine Total 350 ml 350 ml 400 ml Stool Total 500 ml 150 ml 150 ml Vital Signs Date Time Temp Pulse Resp B/P Pulse Ox O2 Delivery O2 Flow Rate FiO2 05/13/17 16:00 40 05/13/17 16:00 76 05/13/17 14:39 40 05/13/17 14:00 86 05/13/17 12:00 99.3 84 27 147/70 96 05/13/17 12:00 98 05/13/17 12:00 40 05/13/17 11:13 98 40 05/13/17 10:00 75 05/13/17 08:00 71 05/13/17 08:00 99.7 106 25 151/79 98 05/13/17 08:00 50 05/13/17 07:39 98 50 05/13/17 06:00 86 05/13/17 04:19 98 50 05/13/17 04:00 86 05/13/17 04:00 99.8 73 24 143/78 98 05/13/17 04:00 50 05/13/17 02:00 88 05/13/17 00:30 100 50 05/13/17 00:00 99.6 66 20 145/80 100 05/13/17 00:00 50 05/13/17 00:00 66 05/12/17 22:00 73 05/12/17 21:08 99 50 05/12/17 20:00 50 05/12/17 20:00 50 05/12/17 20:00 64 05/12/17 20:00 99.6 64 24 158/76 100 Exam Comments nonresponsive pupils 3 mm right nonreactive, 2 mm left and reactive, disconjugate gaze improved today does withdraw BLE to tactile stim and also with more movement of BUE Objective Micro and Labs Laboratory Tests Test 05/13/17 05:45 White Blood Count 15.7 Red Blood Count 2.72 Hemoglobin 8.2 Hematocrit 24.5 Mean Corpuscular Volume 90.1 Mean Corpuscular Hemoglobin 30.3 Mean Corpuscular Hemoglobin 33.6 Concent Red Cell Distribution Width 15.7 Platelet Count 325 Mean Platelet Volume 10.0 Neutrophils (%) (Auto) 80.8 Lymphocytes (%) (Auto) 7.2 Monocytes (%) (Auto) 8.3 Eosinophils (%) (Auto) 3.2 Basophils (%) (Auto) 0.5 Neutrophils # (Auto) 12.7 Lymphocytes # (Auto) 1.1 Monocytes # (Auto) 1.3 Eosinophils # (Auto) 0.5 Basophils # (Auto) 0.1 CBC Comment DIFF FINAL Differential Comment Sodium Level 150 Potassium Level 3.2 Chloride Level 122 Carbon Dioxide Level 18.9 Anion Gap 9 Blood Urea Nitrogen 24 Creatinine 1.04 Estimat Glomerular Filtration 58 Rate Random Glucose 108 Calcium Level 8.3 Total Bilirubin 0.5 Aspartate Amino Transf 49 (AST/SGOT) Alanine Aminotransferase 54 (ALT/SGPT) Alkaline Phosphatase 157 Total Protein 6.2 Albumin 2.2 Date/Time Procedure Status Source Growth 05/12/17 09:53 Aerobic Blood Culture - Preliminary Resulted Blood Line NO GROWTH IN 1 DAY 05/12/17 09:53 Anaerobic Blood Culture - Preliminary Resulted Blood Line NO GROWTH IN 1 DAY 05/10/17 16:30 Stool Occult Blood (MILO) - Final Complete Stool Stool HEMOCCULT NEGATIVE 05/09/17 17:51 Urine Culture - Final Complete Urine Catheterized Urine Myla Albicans 05/09/17 17:51 Gram Stain Ordered Sputum Endotracheal Pending 05/09/17 17:51 Sputum Culture Ordered Sputum Endotracheal Pending 05/09/17 17:10 Gram Stain - Final Complete Sputum Endotracheal 05/09/17 17:10 Sputum Culture - Final Complete Escherichia Coli Santana Gomez PhD May 13, 2017 18:11
[2017-05-13] MEDS ORDERED: SODIUM CHLORIDE 23.4% INJ 240 MEQ in SYRINGE/BAG 1 EA IV ONE (21:00)
[2017-05-13] MEDS: ARTIFICIAL TEARS OPTH OINT 3.5 APPLIC/3.5 GM TUBO EACH EYE PRN (23:49)
[2017-05-14] VITALS (22 sets, daily range): BP systolic 136–159; BP diastolic 64–89; PULSE 73–98; RESP 14–26; TEMP 98.8–99.6; O2SAT 97–100
[2017-05-14] MEDS: POTASSIUM CHLOR 20 MEQ PREMIX 100 ML IV PRN (00:45)
[2017-05-14] MEDS: INSULIN NovoLIN REGULAR SUPPLEMENTAL SCALE SQ SCH ×5 (03:00→21:00)
[2017-05-14] MEDS: ACETAMINOPHEN 1000 MG/100 ML VIAL IV PRN ×2 (03:40→17:05)
[2017-05-14] MEDS: CHLORHEXIDINE GLUCONATE 2 % 1 PACK (2 CLOTHS) TOP SCH (04:00)
[2017-05-14] MEDS: FREE WATER PO SCH ×2 (05:34→12:00)
[2017-05-14 06:08] LABS: HEMATOCRIT 24.2 % (35.0-46.0); MEAN CELL VOLUME 90.7 FL (80.0-100.0); MEAN CORPUSCULAR HEMOGLOBIN 30.1 PG (27.0-34.0); MEAN CORPUSCULAR HGB CONC 33.2 % (32.0-36.0); PLATELET COUNT 426 TH/MM3 (150-450); RED BLOOD COUNT 2.66 MIL/MM3 (4.00-5.30); RED CELL DISTRIBUTION WIDTH 15.6 % (11.6-17.2); REVIEW FLAG FINAL; WHITE BLOOD COUNT 15.7 TH/MM3 (4.0-11.0)
[2017-05-14] MEDS: AMANTADINE HCL SOLN 100 MG/10 ML UDC PO SCH ×2 (06:42→12:07)
[2017-05-14] MEDS: METOCLOPRAMIDE HCL 10 MG/2 ML VIAL IV PUSH SCH (08:00)
[2017-05-14] MEDS: CHLORHEXIDINE 0.12% (ORAL KIT) 15 ML CUP MT SCH ×2 (08:00→21:15)
[2017-05-14] MEDS: ASPIRIN 325 MG TAB PO SCH (08:57)
[2017-05-14] MEDS: PANTOPRAZOLE SODIUM 40 MG VIAL IV SCH (08:57)
[2017-05-14] MEDS: FLUCONAZOLE 100 MG TAB OG-TUBE SCH (08:57)
[2017-05-14] MEDS: levETIRAcetam INJ 500 MG in SODIUM CHLORIDE 0.9% INJ 100 ML IV SCH ×2 (08:57→21:15)
[2017-05-14] MEDS: DOCUSATE SODIUM 100 MG CAP PO SCH ×2 (08:57→21:00)
[2017-05-14] MEDS: HYDROCORTISONE SOD SUCCINATE 100 MG VIAL IV PUSH SCH (08:57)
[2017-05-14] MEDS: DOCUSATE SODIUM 50 MG/SENNA 8.6 MG TAB PO SCH (08:58)
[2017-05-14] MEDS: ARTIFICIAL TEARS OPTH OINT 3.5 APPLIC/3.5 GM TUBO EACH EYE SCH ×2 (08:58→21:00)
--- NOTE | 2017-05-14 09:05 | RADRPT ---
EXAM DATE/TIME: 05/14/2017 08:35 [facility] COMPARISON: CHEST SINGLE AP, May 11, 2017, 10:36. INDICATIONS : Shortness of breath MEDICAL HISTORY : None. SURGICAL HISTORY : None. ENCOUNTER: Subsequent ACUITY: 2 weeks PAIN SCORE: Non-responsive. LOCATION: Bilateral chest FINDINGS: Portable AP view of the chest demonstrates a normal-sized cardiac silhouette. Tracheostomy overlies t he tracheal air shadow. Right subclavian central line tip is in the SVC near the cavoatrial junction. There is patchy airspace opacity in the lower lung zones bilaterally, stable from the prior study. N o pneumothorax or pleural effusion is seen. Bones demonstrate no acute finding. CONCLUSION: Stable chest x-ray with patchy airspace opacity in lower lung zones bilaterally likely representing a irspace consolidation or less likely atelectasis. Juancho Mayo MD on May 14, 2017 at 9:01 Board Certified Radiologist. This report was verified electronically.
[2017-05-14] MEDS ORDERED: POTASSIUM CHLORIDE 25 MEQ EFFERVESCENT TAB PEG ONE (10:00)
[2017-05-14] MEDS ORDERED: POTASSIUM CHLOR 40 MEQ PREMIX 100 ML IV ONE (10:00)
[2017-05-14] MEDS: RESP: ALBUTEROL 2.5 MG/IPRATROPIUM 0.5 MG NEB (PRN) INH (10:22)
--- NOTE | 2017-05-14 10:33 | HHI.CCPN ---
Subjective Remarks/Hospital Course This is a 42yF with unremarkable past medical history who presents to the [facility] emergency department with new-onset left-sided weakness and slurred speech. She is an employee of [employer] who had a witnessed onset of her symptoms at 12:45pm. In the [facility] ED she was immediately taken for non-contrasted head CT which was negative for acute hemorrhage. She was given iv tpa which was instituted 36 minutes after arrival, per my conversation with the clinical resource coordinator. She was then emergently transferred to [facility]. CT angiography demonstrated acute right m1 cut-off. She was taken by [facility] and arrived directly to the IR suite, where I met and evaluated the patient. Due to the acute nature of her illness and her dysarthria, a complete history is not obtainable. She does endorse right-sided headache, although denied any chest pain, shortness of breath. 04/27: Back from OR after right craniectomy for decompression s/p left MCA CVA. Heavily sedated. Some new history from a co-worker indicates that patient started taking oral contraceptive 2 months ago. 04/28: Continued problems with cerebral edema as expected. Push osmolality a little higher and restrict fluid. Tolerate pH mildly acidotic to avoid cerebral vascular constriction. 04/29: Osmolality in good range. ICP controlled. Hypothermia to 34 degrees. Raise to 35 slowly as long as ICP is acceptable. Unable to start tube feeds yet as gut motility will be poor at cooler temperature. 04/30: ICP control good. Osmolality acceptable. Temp to 35 degrees. 05/01: Raise temp to 36 degrees and hold. CXR with light basilar infiltrates, no leukocytosis. Heavily sedated for brain protection/ICP control. Persistent blood sugars 60s range - will start D5/NS at 30/hr. 05/02: vasopressor requirement uptrending. wbc uptrending as well. repeat head ct with persistent edema, although ICPs slightly improved. 05/03: slight improvement in vasopressors and lactate with ivf resuscitation. however, still persists on high doses of multiple vasopressors. ICPs stable. off versed. sputum growing chowdhury-sensitive e-coli. I performed critical care bedside echo this morning which demonstrated preserved biventricular function, no significant valvular lesions, ivc with 20% variability and measures at 1.6cm. by echo appears clinically euvolemic. 05/04: vasopressors significantly improved throughout the night. but remains on two vasopressors. this morning, cvp climbing. weaning off sedation. bolt removed. icp's controlled. still poor neurologic exam, despite weaning off sedation. (delayed note entry. seen and evaluated at 06:20am). 05/05: patient seen and evaluated at 06:15am. almost off vasopressors. however, renal function significantly worse. patient is non-oliguric, but failing to diurese fast enough for rising filling pressures. FIO2 up to 100% this morning. CXR with evidence of volume overload. bedside ultrasound of the lungs demonstrate trace pleural effusions with densely consolidated lung oquendo. echo with dilated ivc without respiratory variation, RVSP ~50 mmHg based on trace TR jet. preserved LV and RV function. neuro exam remains poor. 05/06: diuresed > 8L uop overnight. fio2 down to 60%. Cr stabilized. Nephrology consulted. neuro exam still poor. 05/07: continues to diurese, >7L/24h. fio2 still at 50%. Cr stable. neuro exam: starting to withdraw x 4. MRI today without evidence of new infarction on the left. 05/08: slowly improving neurologic exam. fio2 improved as well. continues to diurese, and almost at dry weight. wbc uptrending and low-grade fever. remains on broad spectrum abx. 05/09: Remains encephalopathic off sedation, orally intubated on mechanical ventilation. One unit PRBCs ordered this morning for hemoglobin 6.9. No melena or rectal bleeding per RN. 05/10: Remains encephalopathic off sedation. Withdraws all 4 extremities to pain. Remains orally intubated on mechanical ventilation. Tolerating tube feeds. 05/11: Started on propofol last evening as she began to hyperventilate and gets tachypneic while on mechanical ventilation. Currently sedated, orally intubated on mechanical ventilation. Awaiting tracheostomy and PEG tube placement. 05/12: Patient underwent tracheostomy and PEG tube placement on 05/11 which she tolerated well. Fentanyl was stopped last evening and propofol was stopped around midnight. Remains encephalopathic, on mechanical ventilation via tracheostomy. Hemoglobin dropped to 6.6, being transfused 2 units PRBCs ordered earlier. 05/13: Encephalopathic on mechanical ventilation via tracheostomy. On C Pap trial currently. Did tolerate TPs for about 6 hours yesterday. 05/14: Remains encephalopathic on mechanical ventilation via tracheostomy. On C Pap overnight with pressure support +20, PEEP +5. Respiratory rate 28-30. Low- grade fevers. Tolerating tube feeds. Objective Vital Signs Date Time Temp Pulse Resp B/P Pulse Ox O2 Delivery O2 Flow Rate FiO2 05/14/17 10:00 87 05/14/17 08:31 98 40 05/14/17 08:00 98.8 14 153/86 05/12/17 11:50 T-piece 6.00 Intake and Output 05/13/17 05/13/17 05/14/17 08:00 16:00 00:00 Intake Total 964 ml 895 ml 707 ml Output Total 550 ml 1300 ml 400 ml Balance 414 ml -405 ml 307 ml Result Diagram: 05/14/17 0555 05/13/17 2330 Imaging Last [address] 05/09/17 0800 Signed Impressions: Service Date/Time: Tuesday, May 09, 2017 08:46 - CONCLUSION: 1. Stable areas of acute intraparenchymal hemorrhage within the right temporal and parietal lobes with the largest area measuring 3 cm. Extensive cytotoxic edema is also noted throughout the right middle cerebral artery distribution and is stable. There is persistent herniation of the right temporal, parietal and frontal lobes through the right craniectomy defect which is stable. Nam Rivas MD Head CT 05/08/17 0000 Signed Impressions: Service Date/Time: Monday, May 08, 2017 13:20 - CONCLUSION: Evolving subacute right middle cerebral artery distribution infarct. 3.2 cm acute parenchymal hemorrhage has developed within the infarcted and herniated right temporal lobe. Minimal midline shift. Juancho Dolan MD Chest X-Ray 05/08/17 0000 Signed Impressions: Service Date/Time: Monday, May 08, 2017 11:52 - CONCLUSION: 1. New right subclavian central venous catheter with tip at the atriocaval junction. No pneumothorax. 2. Unchanged other lines and tubes, including a left internal jugular central venous catheter with tip in the right atrium. 3. Left greater than right basilar consolidation, both sides improved. Juancho Dolan MD Last 24 hours Impressions Chest X-Ray 05/05/17 0000 Signed Impressions: Service Date/Time: April 03:59 - CONCLUSION: Prominent bibasilar infiltrates. Tubes and catheters are all in good position Bertin White MD Objective Remarks gen: middle-aged female, lying in bed, encephalopathic heent: Positive pallor, no icterus. Tongue moist. Pupils 3 members bilaterally reactive neck: Tracheostomy in place chest: On mechanical ventilation via tracheostomy. Good air entry bilaterally, decreased at bases, scattered rhonchi, no wheezing. cv: S1-S2 regular no gallop or murmur. abd: soft, nontender, nondistended. no guarding. extr: no peripheral edema. distal pulses palpable, well perfused. neuro: Remains encephalopathic, minimal eye opening occasionally, pupils are now 3mm, equal and reactive. withdraws x 4. Weak gag. Urinary Catheter: Yes Assessment to: Continue Line: Central Venous Catheter A/P Assessment and Plan Assessment: 42yF with acute right M1 MCA CVA now s/p systemic TPA and attempted interventional mechanical thrombectomy. Her course is complicated by malignant cerebral edema requiring decompressive craniectomy and therapeutic hypothermia. She remains with cerebral edema, off pressors now. Plan by Systems: Neuro: Acute right M1 MCA CVA s/p systemic TPA and endovascular thrombectomy Dysarthria Left-sided hemiparesis Left-sided facial droop Malignant Cerebral Edema s/p Decompressive Craniectomy Elevated ICP -- Continue neuro checks -- Off fentanyl since 05/11 evening. Propofol off since midnight 05/11. -- repeat EEG 05/04: generalized slowing. ?ictal focus over right hemisphere. -- repeat head CT 05/02, 05/04: stable edema, slightly enlarged left lateral ventricle, evolving right hemispheric cva. Head CT 05/08 and 05/09 with right temporoparietal 3cm intraparenchymal hemorrhage in herniated area. Neurosurgery following. -- Off hyperosmolar therapy. slowly normalize sodium. -- Folow sodium levels -- SBP goal 110 - 160. -- keppra for seizure ppx -- Started on aspirin 325 mg daily on 05/12 (cleared by Dr. Nathan) Respiratory: Acute hypoxic and Hypercarbic respiratory failure --S/p perc tracheostomy on 05/11. Daily C Pap/ T piece trials as tolerated -- wean fio2 for goal spo2 > 90% -- vent bundle -- elevated HOB Cardiovascular Septic Shock- resolved Relative Adrenal Insufficiency Acute intravascular volume overload -- goal sbp 110 - 160 -- off vasopressors. Tapering hydrocortisone. Decreased to 50 mg IV daily on and will stop on 05/15. Renal: Acute Kidney Injury -- likely multifactorial at this point including ATN. -- continue ribera with strict i/o's -- Remains on free water via OGT. -- Off bumex drip/ Diamox since 05/08 -- Monitor and replete electrolytes, follow BUN/creatinine FEN/GI Acute protein calorie malnutrition- mild Hypernatremia Lactic Acidosis- resolved. Anion-gap metabolic acidosis- resolved. Metabolic Alkalosis secondary to intravascular contraction -- TF, Jevity -- ICU electrolyte protocol -- Monitor and replete electrolytes. -- diamox 500mg iv q8h - stopped 05/08 -- Free water per tube: 200 q6h. Nephrology started D5W on 05/09, stopped on 05/10 Heme/ID: Anemia secondary to acute blood loss Sepsis/Leukocytosis E. Coli Pneumonia, likely secondary to aspiration at time of stroke -- Completed 10 days of Zosyn on 05/11. -- sputum culture 05/01, 05/09: e.coli, chowdhury sensitive -- urine, blood cultures 05/02 NGTD. -- daily cbc. Labs suggest iron deficiency. Initiated iron sucrose 200 mg IV daily 3 days on 05/11. 2 units PRBCs being transfused on 05/12 for hemoglobin 6.6. No overt evidence of GI blood loss. No evidence of bleeding from tracheostomy or PEG tube site. CT abdomen pelvis done on 05/12 with no evidence of retroperitoneal bleed. -- leukocytosis is concerning, CVL replaced 05/08, urine culture with Tej from 05/08, replaced Ribera and resent urine culture on 05/09 which is also growing tej. Started fluconazole 100 mg via OG tube daily on 05/09. Completed Zosyn day #10 on 05/11. Leukocytosis noted. Blood cultures 2 repeated on 05/12. Stool for C. difficile negative on 05/12. CT abdomen pelvis without contrast(05/12) in view of drop in hemoglobin and leukocytosis did not reveal any evidence of retroperitoneal or intraperitoneal bleed. No fluid collections noted. Endo: Hypoglycemia- improved. Adrenal Insufficiency -- Off d10w, glycemic control improved. -- frequent glucose checks. -- out of shock. decrease hydrocortisone to 50 mg iv daily on 05/12, will stop hydrocortisone on 05/15 (Random cortisol while in shock was 6) Prophy: -- SCDs, lovenox for DVT prophylaxis started 05/12(cleared by Dr. Nathan) -- Switch protonix IV to Pepcid via PEG for gi prophylaxis Lines: -- LIJ TLC-discontinued 05/08. Right subclavian central line placed 05/08 -- right radial art line 05/05- discontinued 05/11 Discussed with patient's mother at bedside in detail on 05/11, 05/12. Discussed current clinical status and plan of care and family voiced understanding and was agreeable. Discussed current clinical status and plan of care with patient's brother at bedside on 05/13 and he voiced understanding and was agreeable. Family meeting held on 05/13 and all questions and concerns were addressed. Explained that patient may need LTAC prior to rehab depending on neurologic recovery. Casa Acuna MD May 14, 2017 10:32
[2017-05-14] MEDS: ENOXAPARIN SODIUM 40 MG/0.4 ML SYRINGE SQ SCH (12:07)
--- NOTE | 2017-05-14 13:27 | HHI.IDPN ---
Subjective Subjective Remarks Pt remains encephalopathic on mechanical ventilation On C Pap overnight with pressure support +20, PEEP +5. Respiratory rate 28- 30. Low-grade fevers with T max 100.6 in th last 24 hrs. Tolerating tube feeds. Antibiotics fluconazole Allergies: Coded Allergies: Shellfish (Verified Allergy, Unknown, 04/26/17) Objective . Vital Signs Date Time Temp Pulse Resp B/P Pulse Ox O2 Delivery O2 Flow Rate FiO2 05/14/17 12:00 99.4 81 26 152/77 98 05/14/17 12:00 40 05/14/17 12:00 81 05/14/17 10:22 99 40 05/14/17 10:00 87 05/14/17 08:31 98 40 05/14/17 08:00 98.8 98 14 153/86 99 05/14/17 08:00 98 05/14/17 08:00 40 05/14/17 06:00 89 05/14/17 04:56 98 40 05/14/17 04:00 99.4 78 24 136/64 99 05/14/17 04:00 40 05/14/17 04:00 78 05/14/17 02:00 80 05/14/17 00:45 100 40 05/14/17 00:00 40 05/14/17 00:00 82 05/14/17 00:00 98.9 82 23 157/82 99 05/13/17 22:00 94 05/13/17 20:38 99 40 05/13/17 20:00 100.6 90 25 152/80 98 05/13/17 20:00 90 05/13/17 20:00 40 05/13/17 18:00 111 05/13/17 16:00 40 05/13/17 16:00 76 05/13/17 16:00 98.8 94 28 152/81 99 05/13/17 15:30 98 40 05/13/17 14:39 40 05/13/17 14:00 86 05/13/17 05/13/17 05/14/17 15:00 23:00 07:00 Intake Total 895 ml 707 ml 347 ml Output Total 1300 ml 400 ml 700 ml Balance -405 ml 307 ml -353 ml IV Total 389 ml 208 ml 347 ml Tube Feeding 306 ml 299 ml Other 200 ml 200 ml Output Urine Total 350 ml 300 ml 500 ml Stool Total 950 ml 100 ml 200 ml . Laboratory Tests Test 05/12/17 05/13/17 05/14/17 17:10 05:45 05:55 Hemoglobin 9.1 GM/DL 8.2 GM/DL 8.0 GM/DL Hematocrit 26.8 % 24.5 % 24.2 % White Blood Count 15.7 TH/MM3 15.7 TH/MM3 Red Blood Count 2.72 MIL/MM3 2.66 MIL/MM3 Mean Corpuscular Volume 90.1 FL 90.7 FL Mean Corpuscular Hemoglobin 30.3 PG 30.1 PG Mean Corpuscular Hemoglobin 33.6 % 33.2 % Concent Red Cell Distribution Width 15.7 % 15.6 % Platelet Count 325 TH/MM3 426 TH/MM3 Mean Platelet Volume 10.0 FL 9.5 FL Neutrophils (%) (Auto) 80.8 % Lymphocytes (%) (Auto) 7.2 % Monocytes (%) (Auto) 8.3 % Eosinophils (%) (Auto) 3.2 % Basophils (%) (Auto) 0.5 % Neutrophils # (Auto) 12.7 TH/MM3 Lymphocytes # (Auto) 1.1 TH/MM3 Monocytes # (Auto) 1.3 TH/MM3 Eosinophils # (Auto) 0.5 TH/MM3 Basophils # (Auto) 0.1 TH/MM3 CBC Comment DIFF FINAL Differential Comment Laboratory Tests Test 05/12/17 05/13/17 05/13/17 17:10 05:45 23:30 Potassium Level 3.2 MEQ/L 3.2 MEQ/L 3.0 MEQ/L Sodium Level 150 MEQ/L Chloride Level 122 MEQ/L Carbon Dioxide Level 18.9 MEQ/L Anion Gap 9 MEQ/L Blood Urea Nitrogen 24 MG/DL Creatinine 1.04 MG/DL Estimat Glomerular Filtration 58 ML/MIN Rate Random Glucose 108 MG/DL Calcium Level 8.3 MG/DL Total Bilirubin 0.5 MG/DL Aspartate Amino Transf 49 U/L (AST/SGOT) Alanine Aminotransferase 54 U/L (ALT/SGPT) Alkaline Phosphatase 157 U/L Total Protein 6.2 GM/DL Albumin 2.2 GM/DL Microbiology Date/Time Procedure Status Source Growth 05/12/17 09:49 Aerobic Blood Culture - Preliminary Resulted Blood Line NO GROWTH IN 2 DAYS 05/12/17 09:49 Anaerobic Blood Culture - Preliminary Resulted Blood Line NO GROWTH IN 2 DAYS 05/12/17 09:53 Aerobic Blood Culture - Preliminary Resulted Blood Line NO GROWTH IN 2 DAYS 05/12/17 09:53 Anaerobic Blood Culture - Preliminary Resulted Blood Line NO GROWTH IN 2 DAYS Imaging Last Impressions Chest X-Ray 05/14/17 0000 Signed Impressions: Service Date/Time: Sunday, May 14, 2017 08:35 - CONCLUSION: Stable chest x-ray with patchy airspace opacity in lower lung zones bilaterally likely representing airspace consolidation or less likely atelectasis. Juancho Mayo MD Head CT 05/12/17 0600 Signed Impressions: Service Date/Time: April 04:19 - CONCLUSION: No appreciable change. Ct Serrano MD Abdomen/Pelvis CT 05/12/17 0000 Signed Impressions: Service Date/Time: April 16:12 - CONCLUSION: 1. No findings to indicate acute intra-abdominal hemorrhage. 2. There are some punctate collections of free intraperitoneal air in the upper abdomen presumably from the patient's gastrostomy tube. 3. Consolidative changes in both lung bases. Olivier Younger MD Brain MRI 05/07/17 0000 Signed Impressions: Service Date/Time: Sunday, May 07, 2017 10:19 - CONCLUSION: Interval improvement. Significant hemorrhagic inversion remains in the deep white matter structures involving head of the caudate globus pallidus, anterior limb of internal capsule and part of the posterior limb. There are no new areas of ischemia. There are scattered areas of lenticular type hemorrhage involving the cortical surface of the left sylvian region that is new from the comparison study. There is no evidence for an evolving infarct in the left hemisphere. Phuc Younger MD FACR Neck CTA 04/26/17 1316 Signed Impressions: Service Date/Time: Wednesday, April 26, 2017 13:39 - CONCLUSION: 1. Standard 3 vessel arch anatomy. 2. Widely patent carotid arteries. 3. Dominant left vertebral artery. Vertebral arteries are patent bilaterally. 4. 5 mm right thyroid nodule. This can be further evaluated with ultrasound on an outpatient basis. Cyrus Orozco MD Head CTA 04/26/17 1316 Signed Impressions: Service Date/Time: Wednesday, April 26, 2017 13:39 - CONCLUSION: 1. Occlusion of the right M1 segment. Grossly intact mendoza-white matter differentiation with gross ASPECT score of 10/10. 2. Incidental finding of 5 mm right thyroid nodule. This can be further evaluated with ultrasound on an outpatient basis. Cyrus Orozco MD Cerebral Arteriogram 04/26/17 0000 Signed Impressions: Service Date/Time: Wednesday, April 26, 2017 14:57 - CONCLUSION: 1. Proximal right M1 occlusion consistent with findings on CT exam. 2. Numerous mechanical thrombectomy attempts due to challenging thrombus extraction and rethrombosis following thrombectomy. In total, ten separate thrombectomy attempts were performed yielding TICI 2b recanalization. Cyrus Orozco MD Physical Exam CONSTITUTIONAL/GENERAL: This is an adequately nourished patient, in no apparent distress. TUBES/LINES/DRAINS: SKIN: No jaundice, rashes, or lesions. Skin temperature appropriate. Not diaphoretic. HEAD: Buldging noted on R parieatal/temporal area clean, dry well approximated R pairieal inciosn. CARDIOVASCULAR: Regular rate and rhythm without murmurs, gallops, or rubs. No JVD. Peripheral pulses symmetric. RESPIRATORY/CHEST: Symmetric, unlabored respirations. Clear to auscultation. Breath sounds equal bilaterally. No wheezes, rales, or rhonchi. GASTROINTESTINAL: Abdomen soft, non-tender, mildly distended. No hepato- splenomegaly, or palpable masses. No guarding. Bowel sounds present. Fecal collection system in placwe with liquid brown stool GENITOURINARY: Without palpable bladder distension. Head catheter in place with clear yellow MUSCULOSKELETAL: Extremities without clubbing, cyanosis, or edema. No joint tenderness or effusion noted. No calf tenderness. No mottling or clubbing. LYMPHATICS: No palpable cervical or supraclavicular adenopathy. NEUROLOGICAL: Off sedateion. Obtunded, no interaction Not follows commands. Noted to move spontaneously all extremities. Rigidity og LUE noted PSYCHIATRIC: unable to assess Assessment & Plan Remarks Acute R MCA ischemic strokje with hemorrhagic transformation Fever ? central - BC neg @ 2 days Leukocytosis - persistent Recent PNA, sp treatment, E.coli Acute VDRF, failure to wean Fungria, oral thrush Abx asociated high volume liquid diarrhea, C.diff negative - fu procalcitonin - monitor temps, WBC - monitor clincially - cont fluconazole - rechk sputum clx - fu BC - rechk c.diff Larisa Matute MD May 14, 2017 13:27
[2017-05-14 14:12] LABS: ALT (GPT) 52 U/L (10-53); ANION GAP 8 MEQ/L (5-15); AST (GOT) 48 U/L (15-37); BICARBONATE 19.7 MEQ/L (21.0-32.0); BLOOD UREA NITROGEN 21 MG/DL (7-18); CHLORIDE 119 MEQ/L (98-107); GLOMERULAR FILTRATION RATE 71 ML/MIN (>89); POTASSIUM 3.7 MEQ/L (3.5-5.1); SODIUM (NA) 147 MEQ/L (136-145)
[2017-05-14 14:14] LABS: ALKALINE PHOSPHATASE 220 U/L (45-117); TOTAL BILIRUBIN ADULT 0.5 MG/DL (0.2-1.0)
[2017-05-14] MEDS: RESP: ALBUTEROL 2.5 MG/IPRATROPIUM 0.5 MG NEB (SCH) NEB ×2 (15:13→20:19)
[2017-05-14 21:03] LABS: C. DIFF EPI 027 PRESUMPTIVE NEGATIVE (NEGATIVE); C. DIFF TOXIN PCR NEGATIVE (NEGATIVE)
[2017-05-14] MEDS: FAMOTIDINE 20 MG TAB PEG SCH (21:15)
[2017-05-14] MEDS: ARTIFICIAL TEARS OPTH OINT 3.5 APPLIC/3.5 GM TUBO EACH EYE PRN (21:16)
[2017-05-15] VITALS (19 sets, daily range): BP systolic 138–156; BP diastolic 72–92; PULSE 59–103; RESP 11–31; TEMP 98.5–100.2; O2SAT 96–100
[2017-05-15] MEDS: ACETAMINOPHEN 1000 MG/100 ML VIAL IV PRN ×3 (02:39→21:45)
[2017-05-15] MEDS: INSULIN NovoLIN REGULAR SUPPLEMENTAL SCALE SQ SCH ×3 (03:00→11:00)
[2017-05-15] MEDS: RESP: ALBUTEROL 2.5 MG/IPRATROPIUM 0.5 MG NEB (SCH) NEB ×4 (03:22→20:10)
[2017-05-15] MEDS: CHLORHEXIDINE GLUCONATE 2 % 1 PACK (2 CLOTHS) TOP SCH (04:00)
[2017-05-15 06:05] LABS: AUTOMATED NEUTROPHIL # 11.3 TH/MM3 (1.8-7.7); BASOPHIL # 0.1 TH/MM3 (0-0.2); BASOPHIL % 0.5 % (0.0-2.0); EOSINOPHIL # 0.4 TH/MM3 (0-0.4); HEMATOCRIT 24.5 % (35.0-46.0); HEMO FLAGS DIFF FINAL; LYMPH % 8.6 % (9.0-44.0); LYMPHOCYTE # 1.3 TH/MM3 (1.0-4.8); MEAN CELL VOLUME 91.7 FL (80.0-100.0); MEAN CORPUSCULAR HEMOGLOBIN 29.8 PG (27.0-34.0); MEAN CORPUSCULAR HGB CONC 32.5 % (32.0-36.0); MONO % 11.1 % (0.0-8.0); NEUT % 76.8 % (16.0-70.0); PLATELET COUNT 494 TH/MM3 (150-450); RED BLOOD COUNT 2.67 MIL/MM3 (4.00-5.30); RED CELL DISTRIBUTION WIDTH 15.4 % (11.6-17.2); WHITE BLOOD COUNT 14.7 TH/MM3 (4.0-11.0)
[2017-05-15] MEDS: AMANTADINE HCL SOLN 100 MG/10 ML UDC PO SCH ×2 (06:18→11:40)
[2017-05-15 06:29] LABS: ALT (GPT) 73 U/L (10-53); ANION GAP 9 MEQ/L (5-15); AST (GOT) 75 U/L (15-37); BICARBONATE 19.6 MEQ/L (21.0-32.0); BLOOD UREA NITROGEN 20 MG/DL (7-18); CHLORIDE 117 MEQ/L (98-107); GLOMERULAR FILTRATION RATE 65 ML/MIN (>89); POTASSIUM 3.2 MEQ/L (3.5-5.1); SODIUM (NA) 146 MEQ/L (136-145)
[2017-05-15 06:31] LABS: ALKALINE PHOSPHATASE 279 U/L (45-117); TOTAL BILIRUBIN ADULT 0.4 MG/DL (0.2-1.0)
[2017-05-15] MEDS ORDERED: DOCUSATE SODIUM 50 MG/SENNA 8.6 MG TAB PO PRN (07:00)
[2017-05-15] MEDS: CHLORHEXIDINE 0.12% (ORAL KIT) 15 ML CUP MT SCH ×2 (08:00→20:24)
[2017-05-15] MEDS: HYDROCORTISONE SOD SUCCINATE 100 MG VIAL IV PUSH SCH (08:55)
[2017-05-15] MEDS: ASPIRIN 325 MG TAB PO SCH (08:56)
[2017-05-15] MEDS: levETIRAcetam INJ 500 MG in SODIUM CHLORIDE 0.9% INJ 100 ML IV SCH ×2 (08:56→20:24)
[2017-05-15] MEDS: FLUCONAZOLE 100 MG TAB OG-TUBE SCH (08:56)
[2017-05-15] MEDS: FAMOTIDINE 20 MG TAB PEG SCH ×2 (08:56→20:24)
[2017-05-15] MEDS: DOCUSATE SODIUM 100 MG CAP PO SCH ×2 (09:00→20:24)
[2017-05-15] MEDS: ARTIFICIAL TEARS OPTH OINT 3.5 APPLIC/3.5 GM TUBO EACH EYE SCH ×2 (09:00→20:24)
[2017-05-15] MEDS: POTASSIUM CHLOR 40 MEQ PREMIX 100 ML IV SCH ×2 (09:06→13:00)
--- NOTE | 2017-05-15 11:14 | HHI.CCPN ---
Subjective Remarks/Hospital Course This is a 42yF with unremarkable past medical history who presents to the [facility] emergency department with new-onset left-sided weakness and slurred speech. She is an employee of [employer] who had a witnessed onset of her symptoms at 12:45pm. In the [facility] ED she was immediately taken for non-contrasted head CT which was negative for acute hemorrhage. She was given iv tpa which was instituted 36 minutes after arrival, per my conversation with the hr coordinator. She was then emergently transferred to [facility]. CT angiography demonstrated acute right m1 cut-off. She was taken by [facility] and arrived directly to the IR suite, where I met and evaluated the patient. Due to the acute nature of her illness and her dysarthria, a complete history is not obtainable. She does endorse right-sided headache, although denied any chest pain, shortness of breath. 04/27: Back from OR after right craniectomy for decompression s/p left MCA CVA. Heavily sedated. Some new history from a co-worker indicates that patient started taking oral contraceptive 2 months ago. 04/28: Continued problems with cerebral edema as expected. Push osmolality a little higher and restrict fluid. Tolerate pH mildly acidotic to avoid cerebral vascular constriction. 04/29: Osmolality in good range. ICP controlled. Hypothermia to 34 degrees. Raise to 35 slowly as long as ICP is acceptable. Unable to start tube feeds yet as gut motility will be poor at cooler temperature. 04/30: ICP control good. Osmolality acceptable. Temp to 35 degrees. 05/01: Raise temp to 36 degrees and hold. CXR with light basilar infiltrates, no leukocytosis. Heavily sedated for brain protection/ICP control. Persistent blood sugars 60s range - will start D5/NS at 30/hr. 05/02: vasopressor requirement uptrending. wbc uptrending as well. repeat head ct with persistent edema, although ICPs slightly improved. 05/03: slight improvement in vasopressors and lactate with ivf resuscitation. however, still persists on high doses of multiple vasopressors. ICPs stable. off versed. sputum growing chowdhury-sensitive e-coli. I performed critical care bedside echo this morning which demonstrated preserved biventricular function, no significant valvular lesions, ivc with 20% variability and measures at 1.6cm. by echo appears clinically euvolemic. 05/04: vasopressors significantly improved throughout the night. but remains on two vasopressors. this morning, cvp climbing. weaning off sedation. bolt removed. icp's controlled. still poor neurologic exam, despite weaning off sedation. (delayed note entry. seen and evaluated at 06:20am). 05/05: patient seen and evaluated at 06:15am. almost off vasopressors. however, renal function significantly worse. patient is non-oliguric, but failing to diurese fast enough for rising filling pressures. FIO2 up to 100% this morning. CXR with evidence of volume overload. bedside ultrasound of the lungs demonstrate trace pleural effusions with densely consolidated lung oquendo. echo with dilated ivc without respiratory variation, RVSP ~50 mmHg based on trace TR jet. preserved LV and RV function. neuro exam remains poor. 05/06: diuresed > 8L uop overnight. fio2 down to 60%. Cr stabilized. Nephrology consulted. neuro exam still poor. 05/07: continues to diurese, >7L/24h. fio2 still at 50%. Cr stable. neuro exam: starting to withdraw x 4. MRI today without evidence of new infarction on the left. 05/08: slowly improving neurologic exam. fio2 improved as well. continues to diurese, and almost at dry weight. wbc uptrending and low-grade fever. remains on broad spectrum abx. 05/09: Remains encephalopathic off sedation, orally intubated on mechanical ventilation. One unit PRBCs ordered this morning for hemoglobin 6.9. No melena or rectal bleeding per RN. 05/10: Remains encephalopathic off sedation. Withdraws all 4 extremities to pain. Remains orally intubated on mechanical ventilation. Tolerating tube feeds. 05/11: Started on propofol last evening as she began to hyperventilate and gets tachypneic while on mechanical ventilation. Currently sedated, orally intubated on mechanical ventilation. Awaiting tracheostomy and PEG tube placement. 05/12: Patient underwent tracheostomy and PEG tube placement on 05/11 which she tolerated well. Fentanyl was stopped last evening and propofol was stopped around midnight. Remains encephalopathic, on mechanical ventilation via tracheostomy. Hemoglobin dropped to 6.6, being transfused 2 units PRBCs ordered earlier. 05/13: Encephalopathic on mechanical ventilation via tracheostomy. On C Pap trial currently. Did tolerate TPs for about 6 hours yesterday. 05/14: Remains encephalopathic on mechanical ventilation via tracheostomy. On C Pap overnight with pressure support +20, PEEP +5. Respiratory rate 28-30. Low- grade fevers. Tolerating tube feeds. 05/15: Remains encephalopathic on mechanical ventilation via tracheostomy. Opening eyes. Tolerating tube feeds. On C Pap trials. Objective Vital Signs Date Time Temp Pulse Resp B/P Pulse Ox O2 Delivery O2 Flow Rate FiO2 05/15/17 10:46 100 40 05/15/17 10:00 98 05/15/17 08:00 98.5 11 150/72 05/12/17 11:50 T-piece 6.00 Intake and Output 05/14/17 05/14/17 05/15/17 08:00 16:00 00:00 Intake Total 347 ml 682 ml Output Total 700 ml 600 ml Balance -353 ml 82 ml Result Diagram: 05/15/17 0520 05/15/17 0520 Imaging Last [address] 05/09/17 0800 Signed Impressions: Service Date/Time: Tuesday, May 09, 2017 08:46 - CONCLUSION: 1. Stable areas of acute intraparenchymal hemorrhage within the right temporal and parietal lobes with the largest area measuring 3 cm. Extensive cytotoxic edema is also noted throughout the right middle cerebral artery distribution and is stable. There is persistent herniation of the right temporal, parietal and frontal lobes through the right craniectomy defect which is stable. Nam Rivas MD Head CT 05/08/17 0000 Signed Impressions: Service Date/Time: Monday, May 08, 2017 13:20 - CONCLUSION: Evolving subacute right middle cerebral artery distribution infarct. 3.2 cm acute parenchymal hemorrhage has developed within the infarcted and herniated right temporal lobe. Minimal midline shift. Juancho Dolan MD Chest X-Ray 05/08/17 0000 Signed Impressions: Service Date/Time: Monday, May 08, 2017 11:52 - CONCLUSION: 1. New right subclavian central venous catheter with tip at the atriocaval junction. No pneumothorax. 2. Unchanged other lines and tubes, including a left internal jugular central venous catheter with tip in the right atrium. 3. Left greater than right basilar consolidation, both sides improved. Juancho Dolan MD Last 24 hours Impressions Chest X-Ray 05/05/17 0000 Signed Impressions: Service Date/Time: April 03:59 - CONCLUSION: Prominent bibasilar infiltrates. Tubes and catheters are all in good position Bertin White MD Objective Remarks gen: middle-aged female, lying in bed, encephalopathic heent: Positive pallor, no icterus. Tongue moist. Pupils 3 members bilaterally reactive neck: Tracheostomy in place chest: On mechanical ventilation via tracheostomy. Good air entry bilaterally, decreased at bases, scattered rhonchi, no wheezing. cv: S1-S2 regular no gallop or murmur. abd: soft, nontender, nondistended. no guarding. extr: no peripheral edema. distal pulses palpable, well perfused. neuro: Remains encephalopathic, minimal eye opening occasionally, pupils are now 3mm, equal and reactive. withdraws x 4. Weak gag. Urinary Catheter: Yes Assessment to: Continue Line: Central Venous Catheter A/P Assessment and Plan Assessment: 42yF with acute right M1 MCA CVA now s/p systemic TPA and attempted interventional mechanical thrombectomy. Her course is complicated by malignant cerebral edema requiring decompressive craniectomy and therapeutic hypothermia. She remains with cerebral edema, off pressors now. Plan by Systems: Neuro: Acute right M1 MCA CVA s/p systemic TPA and endovascular thrombectomy Dysarthria Left-sided hemiparesis Left-sided facial droop Malignant Cerebral Edema s/p Decompressive Craniectomy Elevated ICP -- Continue neuro checks -- Off fentanyl since 05/11 evening. Propofol off since midnight 05/11. -- repeat EEG 05/04: generalized slowing. ?ictal focus over right hemisphere. -- repeat head CT 05/02, 05/04: stable edema, slightly enlarged left lateral ventricle, evolving right hemispheric cva. Head CT 05/08 and 05/09 with right temporoparietal 3cm intraparenchymal hemorrhage in herniated area. Neurosurgery following. -- Off hyperosmolar therapy. slowly normalize sodium. -- Folow sodium levels -- SBP goal 110 - 160. -- keppra for seizure ppx -- Started on aspirin 325 mg daily on 05/12 (cleared by Dr. Nathan) Respiratory: Acute hypoxic and Hypercarbic respiratory failure --S/p perc tracheostomy on 05/11. Daily C Pap/ T piece trials as tolerated -- wean fio2 for goal spo2 > 90% -- vent bundle -- elevated HOB Cardiovascular Septic Shock- resolved Relative Adrenal Insufficiency Acute intravascular volume overload -- goal sbp 110 - 160 -- off vasopressors. Tapering hydrocortisone. Decreased to 50 mg IV daily on and stop on 05/15. Renal: Acute Kidney Injury -- continue ribera with strict i/o's -- Remains on free water via OGT. -- Off bumex drip/ Diamox since 05/08 -- Monitor and replete electrolytes, follow BUN/creatinine FEN/GI Acute protein calorie malnutrition- mild Hypernatremia Lactic Acidosis- resolved. Anion-gap metabolic acidosis- resolved. Metabolic Alkalosis secondary to intravascular contraction -- TF, Jevity -- ICU electrolyte protocol -- Monitor and replete electrolytes. -- diamox 500mg iv q8h - stopped 05/08 -- Stopped free water on 05/14. Heme/ID: Anemia secondary to acute blood loss/ iron deficiency Sepsis/Leukocytosis E. Coli Pneumonia, likely secondary to aspiration at time of stroke -- Completed 10 days of Zosyn on 05/11. -- sputum culture 05/01, 05/09: e.coli, chowdhury sensitive -- urine, blood cultures 05/02 NGTD. -- daily cbc. Labs suggest iron deficiency. Initiated iron sucrose 200 mg IV daily 3 days on 05/11. 2 units PRBCs being transfused on 05/12 for hemoglobin 6.6. No overt evidence of GI blood loss. No evidence of bleeding from tracheostomy or PEG tube site. CT abdomen pelvis done on 05/12 with no evidence of retroperitoneal bleed. Starting oral iron/ B12, folic acid on 05/15. -- leukocytosis is concerning, CVL replaced 05/08, urine culture with Tej from 05/08, replaced Ribera and resent urine culture on 05/09 which is also growing tej. Started fluconazole 100 mg via OG tube daily on 05/09. Completed Zosyn day #10 on 05/11. Leukocytosis noted. Blood cultures 2 repeated on 05/12. Stool for C. difficile negative on 05/12. CT abdomen pelvis without contrast(05/12) in view of drop in hemoglobin and leukocytosis did not reveal any evidence of retroperitoneal or intraperitoneal bleed. No fluid collections noted. Check right upper quadrant ultrasound on 05/15 for borderline elevation of LFTs and fevers. Awaiting pro-calcitonin level. Check LE venous dopplers to eval for DVT as cause of low grade fever. ID following Endo: Hypoglycemia- improved. Adrenal Insufficiency -- Off d10w, glycemic control improved. -- frequent glucose checks. -- out of shock. decrease hydrocortisone to 50 mg iv daily on 05/12, will stop hydrocortisone on 05/15 (Random cortisol while in shock was 6) Prophy: -- SCDs, lovenox for DVT prophylaxis started 05/12(cleared by Dr. Nathan) -- Switch protonix IV to Pepcid via PEG for gi prophylaxis on 05/14 Lines: -- LIJ TLC-discontinued 05/08. Right subclavian central line placed 05/08 - to be discontinued 05/15 after per IV placed. -- right radial art line 05/05- discontinued 05/11 Discussed with patient's mother at bedside in detail on 05/11, 05/12, 05/13. 05/14, 05/15. Discussed current clinical status and plan of care and family voiced understanding and was agreeable. Discussed current clinical status and plan of care with patient's brother at bedside on 05/13 and he voiced understanding and was agreeable. Family meeting held on 05/13 and all questions and concerns were addressed. Explained that patient may need LTAC prior to rehab depending on neurologic recovery. Casa Acuna MD May 15, 2017 11:14
[2017-05-15] MEDS: ENOXAPARIN SODIUM 40 MG/0.4 ML SYRINGE SQ SCH (13:08)
--- NOTE | 2017-05-15 16:38 | HHI.PR ---
Subjective Remarks s/p iv tpa and thrombectomy Objective Vital Signs Date Time Temp Pulse Resp B/P Pulse Ox O2 Delivery O2 Flow Rate FiO2 05/15/17 16:00 40 05/15/17 16:00 59 05/15/17 16:00 99.3 90 11 138/86 100 05/15/17 14:03 100 40 05/15/17 14:00 84 05/15/17 12:00 40 05/15/17 12:00 99.5 90 31 145/92 100 05/15/17 12:00 98 05/15/17 10:46 100 40 05/15/17 10:00 98 05/15/17 08:01 99 40 05/15/17 08:00 40 05/15/17 08:00 88 05/15/17 08:00 98.5 88 11 150/72 99 05/15/17 06:00 78 05/15/17 04:00 80 05/15/17 04:00 40 05/15/17 04:00 100.2 103 20 155/81 99 05/15/17 03:22 99 40 05/15/17 00:00 99.9 78 21 96 05/15/17 00:00 72 05/15/17 00:00 40 05/14/17 23:58 99 40 05/14/17 22:37 99 40 05/14/17 22:00 86 05/14/17 20:19 100 40 05/14/17 20:00 40 05/14/17 20:00 86 05/14/17 20:00 99.0 86 20 159/89 97 05/14/17 18:00 73 I/O 05/14/17 05/14/17 05/14/17 05/15/17 05/15/17 05/15/17 07:00 15:00 23:00 07:00 15:00 23:00 Intake Total 347 ml 682 ml 658 ml 682 ml Output Total 700 ml 600 ml 550 ml 350 ml Balance -353 ml 82 ml 108 ml 332 ml IV Total 347 ml 210 ml 130 ml 434 ml Tube Feeding 272 ml 328 ml 128 ml Other 200 ml 200 ml 120 ml Output Urine Total 500 ml 550 ml 450 ml 350 ml Stool Total 200 ml 50 ml 100 ml 0 ml nonverbal perrla disconjugate gaze spontaneous movement of mouth and extremities seen at bedside does not follow commands. Result Diagram: 05/15/17 0520 05/15/17 1438 Assessment and Plan Assessment and Plan right mca stroke iv tpa and embolectomy on asa qd fevers ?central -id on the case cont current management. Dr Gomez in the am. Yen Turner MD May 15, 2017 16:38
--- NOTE | 2017-05-15 16:59 | RADRPT ---
EXAM DATE/TIME: 05/15/2017 14:17 [place] COMPARISON: CT ABDOMEN & PELVIS W/O CONTRAST, May 12, 2017, 16:12. INDICATIONS : Abnormal lab values. MEDICAL HISTORY : Cerebrovascular accident. Cerebral edema. SURGICAL HISTORY : Right craniectomy. Tracheostomy. PEG tube placement. ENCOUNTER: Initial ACUITY: 1 day PAIN SCORE: Nonresponsive. LOCATION: Right upper quadrant MEASUREMENTS: LIVER: 19.3 cm length COMMON DUCT: 2 mm RIGHT KIDNEY: 11.7 x 5.3 x 4.5 cm FINDINGS: LIVER: Normal echotexture without focal lesion or ductal dilatation. COMMON DUCT: No intraluminal mass or stone visualized. GALLBLADDER: Mild diffuse wall thickening. No gallstones or pericholecystic fluid. Sonographic Holloway's sign is ne gative. PANCREAS: The visualized portions are within normal limits. RIGHT KIDNEY: No evidence of hydronephrosis, stone, or mass. There is echogenic linear structure within the IVC. CONCLUSION: 1. No abnormality is identified to explain the abnormal lab values. There is mild hepatomegaly. 2. There is a nonocclusive thrombus within the inferior vena cava. 3. Nonspecific gallbladder wall thickening. The above findings concerning the IVC thrombus were relayed to Dr. Acuna via telephone at 4: 57 PM on 05/15/2017. Juancho Mayo MD on May 15, 2017 at 16:44 Board Certified Radiologist. This report was verified electronically.
--- NOTE | 2017-05-15 17:51 | HHI.IDPN ---
Subjective Subjective Remarks On CPAP yellowish secretions Diarrhea markedly decreased, 2nd C.diff negative again Pt cont to w/d on all 4 extremeties and opens eyes spontaneously Growing GNB from repeat sputumm clx US of gallbladder showed nonocclusive thrombus within the inferior vena cava Antibiotics fluconazole Allergies: Coded Allergies: Shellfish (Verified Allergy, Unknown, 04/26/17) Objective . Vital Signs Date Time Temp Pulse Resp B/P Pulse Ox O2 Delivery O2 Flow Rate FiO2 05/15/17 17:09 99 40 05/15/17 16:00 40 05/15/17 16:00 59 05/15/17 16:00 99.3 90 11 138/86 100 05/15/17 14:03 100 40 05/15/17 14:00 84 05/15/17 12:00 40 05/15/17 12:00 99.5 90 31 145/92 100 05/15/17 12:00 98 05/15/17 10:46 100 40 05/15/17 10:00 98 05/15/17 08:01 99 40 05/15/17 08:00 40 05/15/17 08:00 88 05/15/17 08:00 98.5 88 11 150/72 99 05/15/17 06:00 78 05/15/17 04:00 80 05/15/17 04:00 40 05/15/17 04:00 100.2 103 20 155/81 99 05/15/17 03:22 99 40 05/15/17 00:00 99.9 78 21 96 05/15/17 00:00 72 05/15/17 00:00 40 05/14/17 23:58 99 40 05/14/17 22:37 99 40 05/14/17 22:00 86 05/14/17 20:19 100 40 05/14/17 20:00 40 05/14/17 20:00 86 05/14/17 20:00 99.0 86 20 159/89 97 05/14/17 18:00 73 05/14/17 05/14/17 05/15/17 15:00 23:00 07:00 Intake Total 682 ml 658 ml Output Total 600 ml 550 ml Balance 82 ml 108 ml IV Total 210 ml 130 ml Tube Feeding 272 ml 328 ml Other 200 ml 200 ml Output Urine Total 550 ml 450 ml Stool Total 50 ml 100 ml . Laboratory Tests Test 6/17/17 6/18/17 05:55 05:20 White Blood Count 15.7 TH/MM3 14.7 TH/MM3 Red Blood Count 2.66 MIL/MM3 2.67 MIL/MM3 Hemoglobin 8.0 GM/DL 8.0 GM/DL Hematocrit 24.2 % 24.5 % Mean Corpuscular Volume 90.7 FL 91.7 FL Mean Corpuscular Hemoglobin 30.1 PG 29.8 PG Mean Corpuscular Hemoglobin 33.2 % 32.5 % Concent Red Cell Distribution Width 15.6 % 15.4 % Platelet Count 426 TH/MM3 494 TH/MM3 Mean Platelet Volume 9.5 FL 9.5 FL Neutrophils (%) (Auto) 76.8 % Lymphocytes (%) (Auto) 8.6 % Monocytes (%) (Auto) 11.1 % Eosinophils (%) (Auto) 3.0 % Basophils (%) (Auto) 0.5 % Neutrophils # (Auto) 11.3 TH/MM3 Lymphocytes # (Auto) 1.3 TH/MM3 Monocytes # (Auto) 1.6 TH/MM3 Eosinophils # (Auto) 0.4 TH/MM3 Basophils # (Auto) 0.1 TH/MM3 CBC Comment DIFF FINAL Differential Comment Laboratory Tests Test 05/13/17 05/14/17 05/15/17 05/15/17 23:30 13:30 05:20 14:38 Potassium Level 3.0 MEQ/L 3.7 MEQ/L 3.2 MEQ/L 4.6 MEQ/L Sodium Level 147 MEQ/L 146 MEQ/L Chloride Level 119 MEQ/L 117 MEQ/L Carbon Dioxide Level 19.7 MEQ/L 19.6 MEQ/L Anion Gap 8 MEQ/L 9 MEQ/L Blood Urea Nitrogen 21 MG/DL 20 MG/DL Creatinine 0.87 MG/DL 0.94 MG/DL Estimat Glomerular Filtration 71 ML/MIN 65 ML/MIN Rate Random Glucose 112 MG/DL 97 MG/DL Calcium Level 8.3 MG/DL 8.2 MG/DL Total Bilirubin 0.5 MG/DL 0.4 MG/DL Aspartate Amino Transf 48 U/L 75 U/L (AST/SGOT) Alanine Aminotransferase 52 U/L 73 U/L (ALT/SGPT) Alkaline Phosphatase 220 U/L 279 U/L Total Protein 6.4 GM/DL 6.4 GM/DL Albumin 2.1 GM/DL 2.1 GM/DL Microbiology Date/Time Procedure Status Source Growth 05/14/17 17:00 Gram Stain - Final Resulted Sputum Endotracheal 05/14/17 17:00 Sputum Culture - Preliminary Resulted Gram Negative [facility] Imaging Last Impressions Gall Bladder Ultrasound 05/15/17 0000 Signed Impressions: Service Date/Time: Monday, May 15, 2017 14:17 - CONCLUSION: 1. No abnormality is identified to explain the abnormal lab values. There is mild hepatomegaly. 2. There is a nonocclusive thrombus within the inferior vena cava. 3. Nonspecific gallbladder wall thickening. The above findings concerning the IVC thrombus were relayed to Dr. Acuna via telephone at 4: 57 PM on 05/15/2017. Juancho Mayo MD Chest X-Ray 05/14/17 0000 Signed Impressions: Service Date/Time: Sunday, May 14, 2017 08:35 - CONCLUSION: Stable chest x-ray with patchy airspace opacity in lower lung zones bilaterally likely representing airspace consolidation or less likely atelectasis. Juancho Mayo MD Head CT 05/12/17 0600 Signed Impressions: Service Date/Time: April 04:19 - CONCLUSION: No appreciable change. Ct Serrano MD Abdomen/Pelvis CT 05/12/17 0000 Signed Impressions: Service Date/Time: April 16:12 - CONCLUSION: 1. No findings to indicate acute intra-abdominal hemorrhage. 2. There are some punctate collections of free intraperitoneal air in the upper abdomen presumably from the patient's gastrostomy tube. 3. Consolidative changes in both lung bases. Olivier Younger MD Brain MRI 05/07/17 0000 Signed Impressions: Service Date/Time: Sunday, May 07, 2017 10:19 - CONCLUSION: Interval improvement. Significant hemorrhagic inversion remains in the deep white matter structures involving head of the caudate globus pallidus, anterior limb of internal capsule and part of the posterior limb. There are no new areas of ischemia. There are scattered areas of lenticular type hemorrhage involving the cortical surface of the left sylvian region that is new from the comparison study. There is no evidence for an evolving infarct in the left hemisphere. Phuc Younger MD FACR Neck CTA 04/26/17 1316 Signed Impressions: Service Date/Time: Wednesday, April 26, 2017 13:39 - CONCLUSION: 1. Standard 3 vessel arch anatomy. 2. Widely patent carotid arteries. 3. Dominant left vertebral artery. Vertebral arteries are patent bilaterally. 4. 5 mm right thyroid nodule. This can be further evaluated with ultrasound on an outpatient basis. Cyrus Orozco MD Head CTA 04/26/17 1316 Signed Impressions: Service Date/Time: Wednesday, April 26, 2017 13:39 - CONCLUSION: 1. Occlusion of the right M1 segment. Grossly intact mendoza-white matter differentiation with gross ASPECT score of 10/10. 2. Incidental finding of 5 mm right thyroid nodule. This can be further evaluated with ultrasound on an outpatient basis. Cyrus Orozco MD Cerebral Arteriogram 04/26/17 0000 Signed Impressions: Service Date/Time: Wednesday, April 26, 2017 14:57 - CONCLUSION: 1. Proximal right M1 occlusion consistent with findings on CT exam. 2. Numerous mechanical thrombectomy attempts due to challenging thrombus extraction and rethrombosis following thrombectomy. In total, ten separate thrombectomy attempts were performed yielding TICI 2b recanalization. Cyrus Orozco MD Physical Exam CONSTITUTIONAL/GENERAL: This is an adequately nourished patient, in no apparent distress. TUBES/LINES/DRAINS: SKIN: No jaundice, rashes, or lesions. Skin temperature appropriate. Not diaphoretic. HEAD: Buldging noted on R parieatal/temporal area clean, dry well approximated R pairieal inciosn. CARDIOVASCULAR: Regular rate and rhythm without murmurs, gallops, or rubs. No JVD. Peripheral pulses symmetric. RESPIRATORY/CHEST: Symmetric, unlabored respirations. Clear to auscultation. Breath sounds equal bilaterally. No wheezes, rales, or rhonchi. GASTROINTESTINAL: Abdomen soft, non-tender, mildly distended. No hepato- splenomegaly, or palpable masses. No guarding. Bowel sounds present. Fecal collection system in placwe with liquid brown stool GENITOURINARY: Without palpable bladder distension. Head catheter in place with clear yellow MUSCULOSKELETAL: Extremities without clubbing, cyanosis, or edema. No joint tenderness or effusion noted. No calf tenderness. No mottling or clubbing. LYMPHATICS: No palpable cervical or supraclavicular adenopathy. NEUROLOGICAL: Off sedateion. Obtunded, no interaction Not follows commands. Noted to move spontaneously all extremities. Rigidity og LUE noted PSYCHIATRIC: unable to assess Assessment & Plan Remarks Acute R MCA ischemic strokje with hemorrhagic transformation Fever ? central - BC neg procalcitonin equivical Leukocytosis - persistent Recent PNA, sp treatment, E.coli Acute VDRF, failure to wean Fungria, oral thrush Abx asociated high volume liquid diarrhea, C.diff negative: improved -will start CFTX - cont fluconazole - fu sputum clx - fu BC dw Larisa Cid MD May 15, 2017 17:51
[2017-05-15] MEDS ORDERED: IOHEXOL 350 MG/ML 10 ML VIAL (for RAD DIAG) IV ONE (18:01)
--- NOTE | 2017-05-15 18:43 | RADRPT ---
EXAM DATE/TIME: 05/15/2017 17:56 [facility] COMPARISON: CT BRAIN W/O CONTRAST, May 12, 2017, 4:19. INDICATIONS : Stroke rescan RADIATION DOSE: 56.35 CTDIvol (mGy) MEDICAL HISTORY : Non-responsive. SURGICAL HISTORY : Non-responsive. ENCOUNTER: Subsequent ACUITY: 1 week PAIN SCALE: Non-responsive LOCATION: cranial TECHNIQUE: Multiple contiguous axial images were obtained of the head. Using automated exposure control and adj ustment of the mA and/or kV according to patient size, radiation dose was kept as low as reasonably a chievable to obtain optimal diagnostic quality images. FINDINGS: There has been prior right frontal craniectomy. The edematous right frontal lobe herniates through th e craniectomy defect and there is 5 mm of left or right midline shift, stable from the prior study. W ithin the area of cytotoxic edema there are stable blood products. Ventricles are normal in size. The re is no downward herniation. CONCLUSION: Stable noncontrast head CT with edematous right frontal lobe brain tissue herniating through the cran iectomy defect. There is stable a right frontal lobe blood products and there is stable 5 mm of right -to-left midline shift. Juancho aMyo MD on May 15, 2017 at 18:38 Board Certified Radiologist. This report was verified electronically.
--- NOTE | 2017-05-15 18:49 | RADRPT ---
EXAM DATE/TIME: 05/15/2017 18:01 [facility] COMPARISON: No previous studies available for comparison. INDICATIONS : Possible PE IV CONTRAST: 75 cc Omnipaque 350 (iohexol) IV RADIATION DOSE: 10.92 CTDIvol (mGy) MEDICAL HISTORY : Non-responsive. SURGICAL HISTORY : Non-responsive. ENCOUNTER: Subsequent ACUITY: 1 week PAIN SCALE: Non-responsive LOCATION: chest TECHNIQUE: Volumetric scanning of the chest was performed using a pulmonary embolism protocol MIP images were re constructed. Using automated exposure control and adjustment of the mA and/or kV according to patien t size, radiation dose was kept as low as reasonably achievable to obtain optimal diagnostic quality images. FINDINGS: PULMONARY ARTERIES: There is suboptimal bolus timing and the pulmonary arteries are only visualized to the very proximal segmental level. No intraluminal filling defect is noted. More distal segmental and subsegmental pulm onary arteries are not adequately visualized. LUNGS: Bilateral lower lobe airspace consolidation and patchy focal airspace disease in the peripheral right upper lobe consistent with aspiration versus pneumonia. PLEURAE: Very small left-sided pleural effusion. MEDIASTINUM: There is good visualization of the great vessels of the middle mediastinum. No evidence of mediastin al or hilar adenopathy/mass. MUSCULOSKELETAL: Within normal limits for patient age. MISCELLANEOUS: There is a tracheostomy in place. The visualized upper abdomen is grossly unremarkable. CONCLUSION: 1. Limited examination with visualization of the pulmonary arteries to the proximal segmental level o nly. No evidence for pulmonary embolism to the proximal segmental level. More distal emboli cannot be evaluated for. 2. Bilateral lower lobe air space consolidation and patchy focal airspace disease in the right upper lobe consistent with aspiration versus pneumonia. 3. Trace left pleural effusion. Cyrus Orozco MD on May 15, 2017 at 18:35 Board Certified Radiologist. This report was verified electronically.
[2017-05-15] MEDS: cefTRIAXone INJ 2,000 MG in SODIUM CHLORIDE 0.9% INJ 100 ML IV SCH (19:06)
--- NOTE | 2017-05-15 19:23 | RADRPT ---
EXAM DATE/TIME: 05/15/2017 18:37 [facility] COMPARISON: CT PULMONARY ANGIOGRAM, May 15, 2017, 18:01. INDICATIONS : Bilateral leg swelling. MEDICAL HISTORY : Unable to obtain. SURGICAL HISTORY : Unable to obtain. ENCOUNTER: Initial ACUITY: 1 day PAIN SCORE: Non-responsive LOCATION: Bilateral legs. TECHNIQUE: Venous ultrasound of the left and right leg was performed from the inguinal ligament to the proximal calf. Real-time, color Doppler and spectral tracing, compression and augmentation techniques were us ed. FINDINGS: RIGHT LEG: There is normal compressibility of the deep venous system from the inguinal region to the proximal ca lf. No echogenic clot is seen in the lumen of the common femoral, femoral, popliteal, and posterior tibial veins. There is a normal response of the venous system to proximal and distal augmentation an d respiration. LEFT LEG: There is lack of normal compression in the common femoral vein and there is partially occlusive throm bus in the visualized portion of the external iliac vein and common femoral vein and likely in the po rtions of the distal femoral vein as well. Remaining vessels are patent. CONCLUSION: 1. There is nonocclusive thrombus within the left lower extremity veins including the external iliac vein, common femoral vein, and distal femoral vein. 2. The right lower extremity is patent with no DVT. Findings were telephoned to Dr. Acuna. Juancho Mayo MD on May 15, 2017 at 19:15 Board Certified Radiologist. This report was verified electronically.
--- NOTE | 2017-05-15 20:01 | HHI.NSPN ---
History Chief Complaint: right hemisphere CVA status post right decompressive craniectomy Interval History 42-year-old female status post emergency decompressive craniotomy 04/27/17. Patient has developed extensive DVT diagnosed in the past day. Exam Results Vital Signs Date Time Temp Pulse Resp B/P Pulse Ox O2 Delivery O2 Flow Rate FiO2 05/15/17 18:00 59 05/15/17 17:50 100 100 05/15/17 16:00 99.3 11 138/86 05/12/17 11:50 T-piece 6.00 Intake and Output 05/14/17 05/14/17 05/15/17 08:00 16:00 00:00 Intake Total 347 ml 682 ml Output Total 700 ml 600 ml Balance -353 ml 82 ml Physical Examination Ms. Toledo is intubated, no IV sedatives. Right flap remains full, soft to palpate. Surgical wound healing well. clean and dry. Cranial Nerves: Left pupil 4, right pupil 6, b/l nonreactive. left disconjugate gaze. Motor: withdraws to all four extremities deep pain. Not following commands Bilateral plantar response silent. Lab, Micro, Other Results 05/15/17 CT scan head images reviewed by the undersigned. Agree with findings as noted below: Head CT 05/15/17 1707 Signed Impressions: Service Date/Time: Monday, May 15, 2017 17:56 - CONCLUSION: Stable noncontrast head CT with edematous right frontal lobe brain tissue herniating through the craniectomy defect. There is stable a right frontal lobe blood products and there is stable 5 mm of [id number] midline shift. Juancho Mayo MD Lower Extremity Ultrasound 05/15/17 0000 Signed Impressions: Service Date/Time: Monday, May 15, 2017 18:37 - CONCLUSION: 1. There is nonocclusive thrombus within the left lower extremity veins including the external iliac vein, common femoral vein, and distal femoral vein. 2. The right lower extremity is patent with no DVT. Findings were telephoned to Dr. Acuna. Juancho Mayo MD Gall Bladder Ultrasound 05/15/17 0000 Signed Impressions: Service Date/Time: Monday, May 15, 2017 14:17 - CONCLUSION: 1. No abnormality is identified to explain the abnormal lab values. There is mild hepatomegaly. 2. There is a nonocclusive thrombus within the inferior vena cava. 3. Nonspecific gallbladder wall thickening. The above findings concerning the IVC thrombus were relayed to Dr. Acuna via telephone at 4: 57 PM on 05/15/2017. Juancho Mayo MD CT Angiography 05/15/17 0000 Signed Impressions: Service Date/Time: Monday, May 15, 2017 18:01 - CONCLUSION: 1. Limited examination with visualization of the pulmonary arteries to the proximal segmental level only. No evidence for pulmonary embolism to the proximal segmental level. More distal emboli cannot be evaluated for. 2. Bilateral lower lobe air space consolidation and patchy focal airspace disease in the right upper lobe consistent with aspiration versus pneumonia. 3. Trace left pleural effusion. Cyrus Orozco MD Medical Decision Making Impression and Plan Impression: 1. Stable neurologic status following TBI. 2. Lower extremity DVT Plan: Findings were discussed with reference assistant. It is felt that the benefit of full anticoagulation with heparin outweighs the risks for further intracranial hemorrhage at this point. Continue close intensive surgical care neurologic checks Elliott Oviedo MD May 15, 2017 20:01
[2017-05-15 22:08] LABS: HEMATOCRIT 24.9 % (35.0-46.0); MEAN CORPUSCULAR HEMOGLOBIN 29.6 PG (27.0-34.0); MEAN CORPUSCULAR HGB CONC 32.2 % (32.0-36.0); PLATELET COUNT 482 TH/MM3 (150-450); RED CELL DISTRIBUTION WIDTH 15.7 % (11.6-17.2); REVIEW FLAG FINAL; WHITE BLOOD COUNT 12.4 TH/MM3 (4.0-11.0)
[2017-05-15 22:14] LABS: APTT (PATIENT) 27.1 SEC (24.3-30.1); PROTHROMBIN TIME - PATIENT 10.8 SEC (9.8-11.6)
[2017-05-15] MEDS: HEPARIN-D5W INJ 250 ML IV SCH (22:39)
[2017-05-16] VITALS (15 sets, daily range): BP systolic 130–167; BP diastolic 66–96; PULSE 64–122; RESP 25–29; TEMP 99.1–100; O2SAT 98–100
[2017-05-16] MEDS: RESP: ALBUTEROL 2.5 MG/IPRATROPIUM 0.5 MG NEB (SCH) NEB ×2 (03:59→09:32)
[2017-05-16] MEDS: CHLORHEXIDINE GLUCONATE 2 % 1 PACK (2 CLOTHS) TOP SCH (04:49)
[2017-05-16 05:21] LABS: APTT (PATIENT) 40.4 SEC (24.3-30.1)
[2017-05-16] MEDS: AMANTADINE HCL SOLN 100 MG/10 ML UDC PO SCH ×2 (06:14→11:00)
[2017-05-16] MEDS: CHLORHEXIDINE 0.12% (ORAL KIT) 15 ML CUP MT SCH ×2 (08:45→20:00)
[2017-05-16] MEDS: ARTIFICIAL TEARS OPTH OINT 3.5 APPLIC/3.5 GM TUBO EACH EYE SCH ×2 (08:46→20:01)
[2017-05-16] MEDS: DOCUSATE SODIUM 100 MG CAP PO SCH ×2 (08:46→20:00)
[2017-05-16] MEDS: FLUCONAZOLE 100 MG TAB OG-TUBE SCH (08:46)
[2017-05-16] MEDS: levETIRAcetam INJ 500 MG in SODIUM CHLORIDE 0.9% INJ 100 ML IV SCH ×2 (08:46→20:01)
[2017-05-16] MEDS: ASPIRIN 325 MG TAB PO SCH (08:46)
[2017-05-16] MEDS: FERROUS SULFATE 300 MG /5ML UDC PEG SCH (08:46)
[2017-05-16] MEDS: FOLIC ACID 1 MG TAB PEG SCH (08:46)
[2017-05-16] MEDS: VITAMIN B COMPLEX/VIT C TAB PEG SCH (08:46)
[2017-05-16] MEDS: FAMOTIDINE 20 MG TAB PEG SCH ×2 (08:46→20:00)
[2017-05-16] MEDS: ACETAMINOPHEN 1000 MG/100 ML VIAL IV PRN ×2 (09:45→19:01)
[2017-05-16] MEDS: HEPARIN-D5W INJ 250 ML IV SCH (10:59)
[2017-05-16 11:41] LABS: HEMATOCRIT 24.4 % (35.0-46.0); MEAN CELL VOLUME 92.7 FL (80.0-100.0); MEAN CORPUSCULAR HEMOGLOBIN 30.2 PG (27.0-34.0); MEAN CORPUSCULAR HGB CONC 32.6 % (32.0-36.0); PLATELET COUNT 516 TH/MM3 (150-450); RED BLOOD COUNT 2.63 MIL/MM3 (4.00-5.30); RED CELL DISTRIBUTION WIDTH 15.9 % (11.6-17.2); REVIEW FLAG FINAL; WHITE BLOOD COUNT 11.6 TH/MM3 (4.0-11.0)
[2017-05-16 12:38] LABS: BICARBONATE 18.2 MEQ/L (21.0-32.0); POTASSIUM 3.6 MEQ/L (3.5-5.1)
--- NOTE | 2017-05-16 13:06 | HHI.CCPN ---
Subjective Remarks/Hospital Course This is a 42yF with unremarkable past medical history who presents to the [facility] emergency department with new-onset left-sided weakness and slurred speech. She is an employee of [employer] who had a witnessed onset of her symptoms at 12:45pm. In the [facility] ED she was immediately taken for non-contrasted head CT which was negative for acute hemorrhage. She was given iv tpa which was instituted 36 minutes after arrival, per my conversation with the care transition coordinator. She was then emergently transferred to [facility]. CT angiography demonstrated acute right m1 cut-off. She was taken by [facility] and arrived directly to the IR suite, where I met and evaluated the patient. Due to the acute nature of her illness and her dysarthria, a complete history is not obtainable. She does endorse right-sided headache, although denied any chest pain, shortness of breath. 04/27: Back from OR after right craniectomy for decompression s/p left MCA CVA. Heavily sedated. Some new history from a co-worker indicates that patient started taking oral contraceptive 2 months ago. 04/28: Continued problems with cerebral edema as expected. Push osmolality a little higher and restrict fluid. Tolerate pH mildly acidotic to avoid cerebral vascular constriction. 04/29: Osmolality in good range. ICP controlled. Hypothermia to 34 degrees. Raise to 35 slowly as long as ICP is acceptable. Unable to start tube feeds yet as gut motility will be poor at cooler temperature. 04/30: ICP control good. Osmolality acceptable. Temp to 35 degrees. 05/01: Raise temp to 36 degrees and hold. CXR with light basilar infiltrates, no leukocytosis. Heavily sedated for brain protection/ICP control. Persistent blood sugars 60s range - will start D5/NS at 30/hr. 05/02: vasopressor requirement uptrending. wbc uptrending as well. repeat head ct with persistent edema, although ICPs slightly improved. 05/03: slight improvement in vasopressors and lactate with ivf resuscitation. however, still persists on high doses of multiple vasopressors. ICPs stable. off versed. sputum growing chowdhury-sensitive e-coli. I performed critical care bedside echo this morning which demonstrated preserved biventricular function, no significant valvular lesions, ivc with 20% variability and measures at 1.6cm. by echo appears clinically euvolemic. 05/04: vasopressors significantly improved throughout the night. but remains on two vasopressors. this morning, cvp climbing. weaning off sedation. bolt removed. icp's controlled. still poor neurologic exam, despite weaning off sedation. (delayed note entry. seen and evaluated at 06:20am). 05/05: patient seen and evaluated at 06:15am. almost off vasopressors. however, renal function significantly worse. patient is non-oliguric, but failing to diurese fast enough for rising filling pressures. FIO2 up to 100% this morning. CXR with evidence of volume overload. bedside ultrasound of the lungs demonstrate trace pleural effusions with densely consolidated lung oquendo. echo with dilated ivc without respiratory variation, RVSP ~50 mmHg based on trace TR jet. preserved LV and RV function. neuro exam remains poor. 05/06: diuresed > 8L uop overnight. fio2 down to 60%. Cr stabilized. Nephrology consulted. neuro exam still poor. 05/07: continues to diurese, >7L/24h. fio2 still at 50%. Cr stable. neuro exam: starting to withdraw x 4. MRI today without evidence of new infarction on the left. 05/08: slowly improving neurologic exam. fio2 improved as well. continues to diurese, and almost at dry weight. wbc uptrending and low-grade fever. remains on broad spectrum abx. 05/09: Remains encephalopathic off sedation, orally intubated on mechanical ventilation. One unit PRBCs ordered this morning for hemoglobin 6.9. No melena or rectal bleeding per RN. 05/10: Remains encephalopathic off sedation. Withdraws all 4 extremities to pain. Remains orally intubated on mechanical ventilation. Tolerating tube feeds. 05/11: Started on propofol last evening as she began to hyperventilate and gets tachypneic while on mechanical ventilation. Currently sedated, orally intubated on mechanical ventilation. Awaiting tracheostomy and PEG tube placement. 05/12: Patient underwent tracheostomy and PEG tube placement on 05/11 which she tolerated well. Fentanyl was stopped last evening and propofol was stopped around midnight. Remains encephalopathic, on mechanical ventilation via tracheostomy. Hemoglobin dropped to 6.6, being transfused 2 units PRBCs ordered earlier. 05/13: Encephalopathic on mechanical ventilation via tracheostomy. On C Pap trial currently. Did tolerate TPs for about 6 hours yesterday. 05/14: Remains encephalopathic on mechanical ventilation via tracheostomy. On C Pap overnight with pressure support +20, PEEP +5. Respiratory rate 28-30. Low- grade fevers. Tolerating tube feeds. 05/15: Remains encephalopathic on mechanical ventilation via tracheostomy. Opening eyes. Tolerating tube feeds. On C Pap trials. 05/16: neuro exam stable. trialed t-piece for 20 minutes, then became tachypneic and in distress. tolerating tube feeds. hgb stable. heparin drip continues. u/e doppler's with bilateral occlusive DVTs. Objective Vital Signs Date Time Temp Pulse Resp B/P Pulse Ox O2 Delivery O2 Flow Rate FiO2 05/16/17 12:00 40 05/16/17 12:00 107 05/16/17 12:00 99.9 25 130/86 99 05/16/17 09:33 T-piece 05/12/17 11:50 6.00 Intake and Output 05/15/17 05/15/17 05/16/17 08:00 16:00 00:00 Intake Total 658 ml 682 ml 648 ml Output Total 550 ml 350 ml 575 ml Balance 108 ml 332 ml 73 ml Result Diagram: 05/16/17 1116 05/16/17 1116 Other Results Microbiology Date/Time Procedure Status Source Growth 05/14/17 17:00 Gram Stain - Final Complete Sputum Endotracheal 05/14/17 17:00 Sputum Culture - Final Complete Escherichia Coli Imaging Last [address] 05/09/17 0800 Signed Impressions: Service Date/Time: Tuesday, May 09, 2017 08:46 - CONCLUSION: 1. Stable areas of acute intraparenchymal hemorrhage within the right temporal and parietal lobes with the largest area measuring 3 cm. Extensive cytotoxic edema is also noted throughout the right middle cerebral artery distribution and is stable. There is persistent herniation of the right temporal, parietal and frontal lobes through the right craniectomy defect which is stable. Nam Rivas MD Head CT 05/08/17 0000 Signed Impressions: Service Date/Time: Monday, May 08, 2017 13:20 - CONCLUSION: Evolving subacute right middle cerebral artery distribution infarct. 3.2 cm acute parenchymal hemorrhage has developed within the infarcted and herniated right temporal lobe. Minimal midline shift. Juancho Dolan MD Chest X-Ray 05/08/17 0000 Signed Impressions: Service Date/Time: Monday, May 08, 2017 11:52 - CONCLUSION: 1. New right subclavian central venous catheter with tip at the atriocaval junction. No pneumothorax. 2. Unchanged other lines and tubes, including a left internal jugular central venous catheter with tip in the right atrium. 3. Left greater than right basilar consolidation, both sides improved. Juancho Dolan MD Last 24 hours Impressions Chest X-Ray 05/05/17 0000 Signed Impressions: Service Date/Time: April 03:59 - CONCLUSION: Prominent bibasilar infiltrates. Tubes and catheters are all in good position Bertin White MD Objective Remarks gen: middle-aged female, lying in bed, encephalopathic heent: Positive pallor, no icterus. Tongue moist. Pupils 5 mm bilaterally reactive neck: Tracheostomy in place chest: On mechanical ventilation via tracheostomy. Good air entry bilaterally, decreased at bases, scattered rhonchi, no wheezing. cv: S1-S2 regular no gallop or murmur. abd: soft, nontender, nondistended. no guarding. extr: no peripheral edema. distal pulses palpable, well perfused. neuro: Remains encephalopathic, minimal eye opening occasionally, pupils are now 3mm, equal and reactive. withdraws x 4. Weak gag. A/P Assessment and Plan Assessment: 42yF with acute right M1 MCA CVA now s/p systemic TPA and attempted interventional mechanical thrombectomy. Her course is complicated by malignant cerebral edema requiring decompressive craniectomy and therapeutic hypothermia. She remains with cerebral edema, off pressors now. now with multiple venous thomboses, including intra-hepatic IVC, LEs, b/l UEs, requiring therapeutic anticoagulation. on heparin drip. plan for interval head CT in the AM. Highly complex patient with multiple medical comorbidities which require ongoing management, including hemorrhagic conversion of strokes, need for anticoagulation, DVTs, hypercoagulable state, s/p large MCA infarct, persistent chronic respiratory failure. Plan by Systems: Neuro: Acute right M1 MCA CVA s/p systemic TPA and endovascular thrombectomy Dysarthria Left-sided hemiparesis Left-sided facial droop Malignant Cerebral Edema s/p Decompressive Craniectomy Elevated ICP -- Continue neuro checks -- Off fentanyl since 05/11 evening. Propofol off since midnight 05/11. -- repeat EEG 05/04: generalized slowing. ?ictal focus over right hemisphere. -- repeat head CT 05/02, 05/04: stable edema, slightly enlarged left lateral ventricle, evolving right hemispheric cva. Head CT 05/08 and 05/09 with right temporoparietal 3cm intraparenchymal hemorrhage in herniated area. Neurosurgery following. -- Off hyperosmolar therapy. slowly normalize sodium. -- Folow sodium levels -- SBP goal 110 - 160. -- keppra for seizure ppx -- Started on aspirin 325 mg daily on 05/12 (cleared by Dr. Nathan) Respiratory: Acute hypoxic and Hypercarbic respiratory failure --S/p perc tracheostomy on 05/11. Daily C Pap/ T piece trials as tolerated, will attempt longer t-piece trials daily -- wean fio2 for goal spo2 > 90% -- vent bundle -- elevated HOB Cardiovascular Septic Shock- resolved Relative Adrenal Insufficiency Acute intravascular volume overload- resolved. -- goal sbp 110 - 160 -- off vasopressors. off hydrocortisone. Renal: Acute Kidney Injury- resolving. -- continue ribera with strict i/o's -- Remains on free water via OGT. -- Off bumex drip/ Diamox since 05/08 -- Monitor and replete electrolytes, follow BUN/creatinine FEN/GI Acute protein calorie malnutrition- moderate Hypernatremia Lactic Acidosis- resolved. Anion-gap metabolic acidosis- resolved. Metabolic Alkalosis secondary to intravascular contraction- improved. -- TF, Jevity -- ICU electrolyte protocol -- Monitor and replete electrolytes. -- diamox 500mg iv q8h - stopped 05/08 -- Stopped free water on 05/14. Heme/ID: Anemia secondary to acute blood loss/ iron deficiency Sepsis/Leukocytosis E. Coli Pneumonia, likely secondary to aspiration at time of stroke Hypercoagulability Multiple Upper and Lower extremity DVTs -- Completed 10 days of Zosyn on 05/11. -- sputum culture 05/01, 05/09: e.coli, chowdhury sensitive -- urine, blood cultures 05/02 NGTD. -- daily cbc. Labs suggest iron deficiency. Initiated iron sucrose 200 mg IV daily 3 days on 05/11. 2 units PRBCs being transfused on 05/12 for hemoglobin 6.6. No overt evidence of GI blood loss. No evidence of bleeding from tracheostomy or PEG tube site. CT abdomen pelvis done on 05/12 with no evidence of retroperitoneal bleed. Starting oral iron/ B12, folic acid on 05/15. -- leukocytosis is concerning, CVL replaced 05/08, urine culture with Tej from 05/08, replaced Ribera and resent urine culture on 05/09 which is also growing tej. Started fluconazole 100 mg via OG tube daily on 05/09. Completed Zosyn day #10 on 05/11. Leukocytosis noted. Blood cultures 2 repeated on 05/12. Stool for C. difficile negative on 05/12. CT abdomen pelvis without contrast(05/12) in view of drop in hemoglobin and leukocytosis did not reveal any evidence of retroperitoneal or intraperitoneal bleed. No fluid collections noted. Check right upper quadrant ultrasound on 05/15 for borderline elevation of LFTs and fevers. ID following on heparin drip for anticoagulation. repeat AM CT brain to eval for interval change in hemorrhage. very high risk patient for bleeding, but also high risk for clotting, as now has developed multiple left and right sided emboli. Endo: Hypoglycemia- improved. Adrenal Insufficiency -- Off d10w, glycemic control improved. -- frequent glucose checks. -- out of shock. decrease hydrocortisone to 50 mg iv daily on 05/12, d/c'd on (Random cortisol while in shock was 6) Prophy: -- SCDs, heparin drip --Pepcid via PEG for gi prophylaxis Lines: -- LIJ TLC-discontinued 05/08. Right subclavian central line placed 05/08 - to be discontinued 05/15 after per IV placed. -- right radial art line 05/05- discontinued 05/11 piv's ribera dispo: remain in the ICU. high risk for decompensation. I have spent in excess of 20 of a 35 minute visit in counseling and coordination of care with the patient and patient's family. Our discussion included new upper extremity DVTs and the tenuous balance medical regulation versus high risk of hemorrhagic conversion. This time also included coordination of care with neurology and neurosurgery. Remi Freeman MD May 16, 2017 13:06
--- NOTE | 2017-05-16 15:35 | RADRPT ---
EXAM DATE/TIME: 05/16/2017 14:01 [facility] COMPARISON: No previous studies available for comparison. INDICATIONS : Bilateral arm edema. MEDICAL HISTORY : Unablet to obtain. SURGICAL HISTORY : Unable to obtain. ENCOUNTER: Initial ACUITY: 1 week PAIN SCORE: Non-responsive LOCATION: Bilateral arm. FINDINGS: RIGHT UPPER EXTREMITY: There is occlusive thrombus in the right brachial and right basilic veins. There is spontaneous flow documented in the cephalic, axillary, and subclavian veins. The vesse ls are compressible and augmentation response is documented. No filling defects are seen. The flow is phasic with respiration. Direction of flow in the jugular vein is caudal. LEFT UPPER EXTREMITY: There is occlusive thrombus in the left cephalic vein. There is spontaneous flow documented in the brachial, basilic, axillary, and subclavian veins. The vessels are compressible and augmentation response is documented. No filling defects are seen. The flow is phasic with respiration. Direction of flow in the jugular vein is caudal. CONCLUSION: Thrombus in the right brachial and basilic veins and left cephalic vein. Juancho Wright MD on May 16, 2017 at 15:30 Board Certified Radiologist. This report was verified electronically.
--- NOTE | 2017-05-16 15:45 | HHI.IDPN ---
Subjective Subjective Remarks did not tolerate Tpiece, got tachypmneic and was pout back on the rate yellowish secretions Diarrhea resolved Pt cont to w/d on all 4 extremeties and opens eyes spontaneously Appears to start tracking Growing chowdhury S E.coli from repeat sputumm clx US of gallbladder showed nonocclusive thrombus within the inferior vena cava Antibiotics CFTX fluconazole Allergies: Coded Allergies: Shellfish (Verified Allergy, Unknown, 04/26/17) Objective . Vital Signs Date Time Temp Pulse Resp B/P Pulse Ox O2 Delivery O2 Flow Rate FiO2 05/16/17 14:00 64 05/16/17 13:52 100 40 05/16/17 12:00 40 05/16/17 12:00 107 05/16/17 12:00 99.9 66 25 130/86 99 05/16/17 11:27 40 05/16/17 11:20 99 40 05/16/17 10:00 70 05/16/17 10:00 40 05/16/17 09:40 40 05/16/17 09:33 98 T-piece 40 05/16/17 08:00 99.7 94 26 144/96 99 05/16/17 08:00 87 05/16/17 08:00 40 05/16/17 06:00 77 05/16/17 04:00 88 05/16/17 04:00 99 40 05/16/17 04:00 40 05/16/17 04:00 100.0 88 28 150/94 99 05/16/17 02:00 82 05/16/17 00:00 73 05/16/17 00:00 99.9 67 27 149/75 99 05/16/17 00:00 40 05/15/17 23:51 99 40 05/15/17 22:00 73 05/15/17 20:10 100 40 05/15/17 20:00 99.7 73 15 156/81 99 05/15/17 20:00 40 05/15/17 20:00 85 05/15/17 18:00 59 05/15/17 17:50 100 100 05/15/17 17:09 99 40 05/15/17 16:00 40 05/15/17 16:00 59 05/15/17 16:00 99.3 90 11 138/86 100 05/15/17 05/15/17 05/16/17 15:00 23:00 07:00 Intake Total 682 ml 648 ml 545 ml Output Total 350 ml 575 ml 400 ml Balance 332 ml 73 ml 145 ml IV Total 434 ml 314 ml 90 ml Tube Feeding 128 ml 294 ml 415 ml Other 120 ml 40 ml 40 ml Output Urine Total 350 ml 375 ml 350 ml Stool Total 0 ml 200 ml 50 ml . Laboratory Tests Test 05/15/17 05/15/17 05/16/17 05:20 21:37 11:16 White Blood Count 14.7 TH/MM3 12.4 TH/MM3 11.6 TH/MM3 Red Blood Count 2.67 MIL/MM3 2.70 MIL/MM3 2.63 MIL/MM3 Hemoglobin 8.0 GM/DL 8.0 GM/DL 8.0 GM/DL Hematocrit 24.5 % 24.9 % 24.4 % Mean Corpuscular Volume 91.7 FL 92.0 FL 92.7 FL Mean Corpuscular Hemoglobin 29.8 PG 29.6 PG 30.2 PG Mean Corpuscular Hemoglobin 32.5 % 32.2 % 32.6 % Concent Red Cell Distribution Width 15.4 % 15.7 % 15.9 % Platelet Count 494 TH/MM3 482 TH/MM3 516 TH/MM3 Mean Platelet Volume 9.5 FL 9.3 FL 9.5 FL Neutrophils (%) (Auto) 76.8 % Lymphocytes (%) (Auto) 8.6 % Monocytes (%) (Auto) 11.1 % Eosinophils (%) (Auto) 3.0 % Basophils (%) (Auto) 0.5 % Neutrophils # (Auto) 11.3 TH/MM3 Lymphocytes # (Auto) 1.3 TH/MM3 Monocytes # (Auto) 1.6 TH/MM3 Eosinophils # (Auto) 0.4 TH/MM3 Basophils # (Auto) 0.1 TH/MM3 CBC Comment DIFF FINAL Differential Comment Laboratory Tests Test 05/15/17 05/15/17 05/16/17 05:20 14:38 11:16 Sodium Level 146 MEQ/L 145 MEQ/L Potassium Level 3.2 MEQ/L 4.6 MEQ/L 3.6 MEQ/L Chloride Level 117 MEQ/L 114 MEQ/L Carbon Dioxide Level 19.6 MEQ/L 18.2 MEQ/L Anion Gap 9 MEQ/L 13 MEQ/L Blood Urea Nitrogen 20 MG/DL 19 MG/DL Creatinine 0.94 MG/DL 0.91 MG/DL Estimat Glomerular Filtration 65 ML/MIN 67 ML/MIN Rate Random Glucose 97 MG/DL 122 MG/DL Calcium Level 8.2 MG/DL 8.0 MG/DL Total Bilirubin 0.4 MG/DL Aspartate Amino Transf 75 U/L (AST/SGOT) Alanine Aminotransferase 73 U/L (ALT/SGPT) Alkaline Phosphatase 279 U/L Total Protein 6.4 GM/DL Albumin 2.1 GM/DL Microbiology Date/Time Procedure Status Source Growth 05/14/17 17:00 Gram Stain - Final Complete Sputum Endotracheal 05/14/17 17:00 Sputum Culture - Final Complete Escherichia Coli 05/16/17 13:38 Stool Occult Blood (MILO) Received Stool Stool Pending Imaging Last Impressions Head CT 05/15/17 1707 Signed Impressions: Service Date/Time: Monday, May 15, 2017 17:56 - CONCLUSION: Stable noncontrast head CT with edematous right frontal lobe brain tissue herniating through the craniectomy defect. There is stable a right frontal lobe blood products and there is stable 5 mm of [id number] midline shift. Juancho Mayo MD Lower Extremity Ultrasound 05/15/17 0000 Signed Impressions: Service Date/Time: Monday, May 15, 2017 18:37 - CONCLUSION: 1. There is nonocclusive thrombus within the left lower extremity veins including the external iliac vein, common femoral vein, and distal femoral vein. 2. The right lower extremity is patent with no DVT. Findings were telephoned to Dr. Acuna. Juancho Mayo MD Gall Bladder Ultrasound 05/15/17 0000 Signed Impressions: Service Date/Time: Monday, May 15, 2017 14:17 - CONCLUSION: 1. No abnormality is identified to explain the abnormal lab values. There is mild hepatomegaly. 2. There is a nonocclusive thrombus within the inferior vena cava. 3. Nonspecific gallbladder wall thickening. The above findings concerning the IVC thrombus were relayed to Dr. Acuna via telephone at 4: 57 PM on 05/15/2017. Juancho Mayo MD CT Angiography 05/15/17 0000 Signed Impressions: Service Date/Time: Monday, May 15, 2017 18:01 - CONCLUSION: 1. Limited examination with visualization of the pulmonary arteries to the proximal segmental level only. No evidence for pulmonary embolism to the proximal segmental level. More distal emboli cannot be evaluated for. 2. Bilateral lower lobe air space consolidation and patchy focal airspace disease in the right upper lobe consistent with aspiration versus pneumonia. 3. Trace left pleural effusion. Cyrus Orozco MD Chest X-Ray 05/14/17 0000 Signed Impressions: Service Date/Time: Sunday, May 14, 2017 08:35 - CONCLUSION: Stable chest x-ray with patchy airspace opacity in lower lung zones bilaterally likely representing airspace consolidation or less likely atelectasis. Juancho Mayo MD Abdomen/Pelvis CT 05/12/17 0000 Signed Impressions: Service Date/Time: April 16:12 - CONCLUSION: 1. No findings to indicate acute intra-abdominal hemorrhage. 2. There are some punctate collections of free intraperitoneal air in the upper abdomen presumably from the patient's gastrostomy tube. 3. Consolidative changes in both lung bases. Olivier Younger MD Brain MRI 05/07/17 0000 Signed Impressions: Service Date/Time: Sunday, May 07, 2017 10:19 - CONCLUSION: Interval improvement. Significant hemorrhagic inversion remains in the deep white matter structures involving head of the caudate globus pallidus, anterior limb of internal capsule and part of the posterior limb. There are no new areas of ischemia. There are scattered areas of lenticular type hemorrhage involving the cortical surface of the left sylvian region that is new from the comparison study. There is no evidence for an evolving infarct in the left hemisphere. Phuc Younger MD FACR Neck CTA [id number]/26/[id number] Signed Impressions: Service Date/Time: Wednesday, April 26, 2017 13:39 - CONCLUSION: 1. Standard 3 vessel arch anatomy. 2. Widely patent carotid arteries. 3. Dominant left vertebral artery. Vertebral arteries are patent bilaterally. 4. 5 mm right thyroid nodule. This can be further evaluated with ultrasound on an outpatient basis. Cyrus Orozco MD Head CTA [id number]/26/[id number] Signed Impressions: Service Date/Time: Wednesday, April 26, 2017 13:39 - CONCLUSION: 1. Occlusion of the right M1 segment. Grossly intact mendoza-white matter differentiation with gross ASPECT score of 10/10. 2. Incidental finding of 5 mm right thyroid nodule. This can be further evaluated with ultrasound on an outpatient basis. Cyrus Orozco MD Cerebral Arteriogram 04/26/17 0000 Signed Impressions: Service Date/Time: Wednesday, April 26, 2017 14:57 - CONCLUSION: 1. Proximal right M1 occlusion consistent with findings on CT exam. 2. Numerous mechanical thrombectomy attempts due to challenging thrombus extraction and rethrombosis following thrombectomy. In total, ten separate thrombectomy attempts were performed yielding TICI 2b recanalization. Cyrus Orozco MD Physical Exam CONSTITUTIONAL/GENERAL: This is an adequately nourished patient, in no apparent distress. TUBES/LINES/DRAINS: SKIN: No jaundice, rashes, or lesions. Skin temperature appropriate. Not diaphoretic. HEAD: Buldging noted on R parieatal/temporal area clean, dry well approximated R pairieal inciosn. CARDIOVASCULAR: Regular rate and rhythm without murmurs, gallops, or rubs. No JVD. Peripheral pulses symmetric. RESPIRATORY/CHEST: Symmetric, unlabored respirations. Clear to auscultation. Breath sounds equal bilaterally. No wheezes, rales, or rhonchi. GASTROINTESTINAL: Abdomen soft, non-tender, mildly distended. No hepato- splenomegaly, or palpable masses. No guarding. Bowel sounds present. Fecal collection system in place with liquid brown stool GENITOURINARY: Without palpable bladder distension. Head catheter in place with clear yellow MUSCULOSKELETAL: Extremities without clubbing, cyanosis, or edema. NEUROLOGICAL: Off sedation. Obtunded, no interaction Not follows commands. Noted to move spontaneously all extremities. PSYCHIATRIC: unable to assess Assessment & Plan Remarks Acute R MCA ischemic stroke with hemorrhagic transformation Fever ? central - BC neg procalcitonin equivical Leukocytosis - persistent Recent PNA, sp treatment, E.coli Acute VDRF, failure to wean Fungria, oral thrush Abx asociated high volume liquid diarrhea, C.diff negative: resolved -cont CFTX - cont fluconazole x 5 days - fu BC repeat procalcitonine kingsley RN dw family @ b/s Larisa Atkinson Dr, MD May 16, 2017 15:45
[2017-05-16] MEDS: hydrALAZINE HCL 20 MG/ML VIAL IV PUSH PRN (16:27)
--- NOTE | 2017-05-16 17:19 | HHI.PR ---
Review/Management Diagnosis right MCA stroke, s/p iv tpa and thrombectomy of right M1 thrombus. Plan repeat CT brain in am Diagnosis/Plan: Subjective Subjective Comments Pt developed extensive venous thrombosis in LLE, RUE and IVC . She is now on iv heparin due to risk of further thrombosis Active Medications Current Medications Medications (Trade) Dose Ordered Sig/Elida Route Start Time Stop Time Status Last Admin (D50w (Vial) Inj) 25 ml UNSCH PRN IV PUSH 04/26/17 14:15 05/11/17 15:45 (Zofran Inj) 4 mg Q6H PRN IV 04/26/17 14:15 Miscellaneous Information 1 Q361D XX 04/26/17 14:15 (Chlorhexidine 2% Cloth) 3 pack Taper DAILY@04 TOP 04/27/17 04:00 04/23/18 03:59 05/16/17 04:49 (Chlorhexidine 2% Cloth) 3 pack UNSCH PRN TOP 04/26/17 14:15 (Trandate Inj) 20 mg Q15M PRN IV PUSH 04/26/17 15:30 05/09/17 22:57 Hydralazine HCl 10 mg 10 mg Q30M PRN IV PUSH 04/26/17 15:30 05/16/17 16:27 (Keppra Inj/NS Inj) 105 ml @ 400 mls/hr Q12H IV 04/27/17 21:00 05/16/17 08:46 (Dulcolax Supp) 10 mg DAILY PRN RECTAL 04/27/17 10:30 05/01/17 08:29 (Colace) 100 mg BID PO 04/27/17 21:00 05/16/17 08:46 Calcium Gluconate 1 gm 1 gm UNSCH PRN IV 04/27/17 10:30 04/30/17 19:04 Potassium Chloride 100 ml @ 50 mls/hr UNSCH PRN IV 04/27/17 10:30 05/14/17 00:45 (Magnesium Sulfate Inj/NS Inj) 108 ml @ 108 mls/hr UNSCH PRN IV 04/27/17 10:30 05/01/17 17:56 (Peridex 0.12% Liq) 15 ml BID@08,20 MT 04/27/17 20:00 05/16/17 08:45 (Lacrilube Opht Oint) APPLY UNDER BOTH EYELIDS BID EACH EYE 04/28/17 21:00 05/16/17 08:46 Lorazepam 1 mg 1 mg Q1H PRN IV 04/28/17 11:15 Miscellaneous Information ml @ 0 mls/hr UNSCH IV 04/28/17 11:15 (NS Flush) 2 ml UNSCH PRN IV FLUSH 04/28/17 11:15 05/08/17 08:47 (NS Flush) 2 ml UNSCH PRN IV FLUSH 04/28/17 11:15 (Lacrilube Opht Oint) 1 applic Q4H PRN EACH EYE 04/28/17 11:15 05/14/17 21:16 (Ofirmev Inj) 1,000 mg Q6H PRN IV 05/02/17 09:45 05/16/17 09:45 (Symmetrel Liq) 200 mg BID@07,12 PO 05/07/17 07:00 05/16/17 11:00 Fluconazole 100 mg 100 mg DAILY OG-TUBE 05/09/17 20:00 05/16/17 08:46 (Diprivan 1000 Mg/100ml Inj) 100 ml @ 0 mls/hr TITRATE IV 05/10/17 17:15 05/11/17 15:26 (Aspirin) 325 mg DAILY PO 05/11/17 09:00 05/16/17 08:46 (Pepcid) 20 mg BID PEG 05/14/17 21:00 05/16/17 08:46 (Avelina-Colace) 1 tab BID PRN PO 05/15/17 07:00 (Ferrous Sulfate Liq) 300 mg DAILY PEG 05/16/17 09:00 05/16/17 08:46 (Folate) 1 mg DAILY PEG 05/16/17 09:00 05/16/17 08:46 Vitamin B Complex/ Vitamin C 1 tab 1 tab DAILY PEG 05/16/17 09:00 05/16/17 08:46 Ceftriaxone Sodium 2000 mg/ Sodium Chloride 100 ml @ 200 mls/hr Q24H IV 05/15/17 18:00 05/15/17 19:06 (Heparin-D5W Inj) 250 ml @ 0 mls/hr TITRATE IV 05/15/17 20:30 05/16/17 10:59 Allergies Allergies Coded Allergies Shellfish (Verified Allergy, Unknown, 04/26/17) Exam I&O / VS 05/15/17 05/15/17 05/16/17 15:00 23:00 07:00 Intake Total 682 ml 648 ml 545 ml Output Total 350 ml 575 ml 400 ml Balance 332 ml 73 ml 145 ml IV Total 434 ml 314 ml 90 ml Tube Feeding 128 ml 294 ml 415 ml Other 120 ml 40 ml 40 ml Output Urine Total 350 ml 375 ml 350 ml Stool Total 0 ml 200 ml 50 ml Vital Signs Date Time Temp Pulse Resp B/P Pulse Ox O2 Delivery O2 Flow Rate FiO2 05/16/17 16:00 99.1 84 29 167/96 100 05/16/17 16:00 40 05/16/17 16:00 66 05/16/17 14:00 64 05/16/17 13:52 100 40 05/16/17 12:00 40 05/16/17 12:00 107 05/16/17 12:00 99.9 66 25 130/86 99 05/16/17 11:27 40 05/16/17 11:20 99 40 05/16/17 10:00 70 05/16/17 10:00 40 05/16/17 09:40 40 05/16/17 09:33 98 T-piece 40 05/16/17 08:00 99.7 94 26 144/96 99 05/16/17 08:00 87 05/16/17 08:00 40 05/16/17 06:00 77 05/16/17 04:00 88 05/16/17 04:00 99 40 05/16/17 04:00 40 05/16/17 04:00 100.0 88 28 150/94 99 05/16/17 02:00 82 05/16/17 00:00 73 05/16/17 00:00 99.9 67 27 149/75 99 05/16/17 00:00 40 05/15/17 23:51 99 40 05/15/17 22:00 73 05/15/17 20:10 100 40 05/15/17 20:00 99.7 73 15 156/81 99 05/15/17 20:00 40 05/15/17 20:00 85 05/15/17 18:00 59 05/15/17 17:50 100 100 Exam Comments nonresponsive pupils 3 mm right nonreactive, 2 mm left and reactive, disconjugate gaze improved today. Has eye /head deviation to right does withdraw BLE to tactile stim and also with more movement of BUE Objective Micro and Labs Laboratory Tests Test 05/15/17 05/16/17 05/16/17 21:37 04:26 11:16 White Blood Count 12.4 11.6 Red Blood Count 2.70 2.63 Hemoglobin 8.0 8.0 Hematocrit 24.9 24.4 Mean Corpuscular Volume 92.0 92.7 Mean Corpuscular Hemoglobin 29.6 30.2 Mean Corpuscular Hemoglobin 32.2 32.6 Concent Red Cell Distribution Width 15.7 15.9 Platelet Count 482 516 Mean Platelet Volume 9.3 9.5 Prothrombin Time 10.8 Prothromb Time International 1.0 Ratio Activated Partial 27.1 40.4 38.0 Thromboplast Time Sodium Level 145 Potassium Level 3.6 Chloride Level 114 Carbon Dioxide Level 18.2 Anion Gap 13 Blood Urea Nitrogen 19 Creatinine 0.91 Estimat Glomerular Filtration 67 Rate Random Glucose 122 Calcium Level 8.0 Date/Time Procedure Status Source Growth 05/16/17 13:38 Stool Occult Blood (MILO) - Final Complete Stool Stool HEMOCCULT NEGATIVE 05/14/17 17:00 Gram Stain - Final Complete Sputum Endotracheal 05/14/17 17:00 Sputum Culture - Final Complete Escherichia Coli 05/12/17 09:53 Aerobic Blood Culture - Preliminary Resulted Blood Line NO GROWTH IN 4 DAYS 05/12/17 09:53 Anaerobic Blood Culture - Preliminary Resulted Blood Line NO GROWTH IN 4 DAYS Santana Gomez PhD May 16, 2017 17:19
[2017-05-16 17:22] LABS: APTT (PATIENT) 43.8 SEC (24.3-30.1)
[2017-05-16] MEDS: cefTRIAXone INJ 2,000 MG in SODIUM CHLORIDE 0.9% INJ 100 ML IV SCH (17:35)
[2017-05-16] MEDS: LABETALOL HCL 100 MG/20 ML VIAL IV PUSH PRN ×2 (18:38→22:50)
[2017-05-17] VITALS (17 sets, daily range): BP systolic 127–181; BP diastolic 59–79; PULSE 62–103; RESP 18–31; TEMP 98.6–99.7; O2SAT 96–100
[2017-05-17] MEDS: hydrALAZINE HCL 20 MG/ML VIAL IV PUSH PRN (01:06)
[2017-05-17] MEDS: LABETALOL HCL 100 MG/20 ML VIAL IV PUSH PRN (01:52)
[2017-05-17] MEDS: CHLORHEXIDINE GLUCONATE 2 % 1 PACK (2 CLOTHS) TOP SCH (04:00)
--- NOTE | 2017-05-17 04:59 | RADRPT ---
EXAM DATE/TIME: 05/17/2017 04:37 [facility] COMPARISON: CT BRAIN W/O CONTRAST, May 15, 2017, 17:56. INDICATIONS : Follow up stroke. RADIATION DOSE: 33.37 CTDIvol (mGy) MEDICAL HISTORY : Non-responsive. SURGICAL HISTORY : Non-responsive. ENCOUNTER: Subsequent ACUITY: 3 weeks PAIN SCALE: Non-responsive LOCATION: cranial TECHNIQUE: Multiple contiguous axial images were obtained of the head. Using automated exposure control and adj ustment of the mA and/or kV according to patient size, radiation dose was kept as low as reasonably a chievable to obtain optimal diagnostic quality images. FINDINGS: Large subacute infarct in the right middle cerebral artery distribution again noted with associated s eroma edema. Mild, patchy parenchymal hemorrhage within the infarcted area is unchanged. Right cranio kaitlin changes with herniated brain again seen and approximately 5-6 mm of rightward midline shift, unc hanged. No new hemorrhage. No evidence of an acute ischemic event. No perceptible mass lesion. CONCLUSION: No significant change subacute right middle cerebral artery distribution infarct with patchy parenchy mal hemorrhage. Please see above. Juancho Dolan MD on May 17, 2017 at 4:55 Board Certified Radiologist. This report was verified electronically.
[2017-05-17 05:48] LABS: HEMATOCRIT 25.6 % (35.0-46.0); MEAN CELL VOLUME 91.9 FL (80.0-100.0); MEAN CORPUSCULAR HEMOGLOBIN 30.5 PG (27.0-34.0); MEAN CORPUSCULAR HGB CONC 33.2 % (32.0-36.0); PLATELET COUNT 574 TH/MM3 (150-450); RED BLOOD COUNT 2.78 MIL/MM3 (4.00-5.30); RED CELL DISTRIBUTION WIDTH 15.9 % (11.6-17.2); REVIEW FLAG FINAL; WHITE BLOOD COUNT 12.7 TH/MM3 (4.0-11.0)
[2017-05-17 06:19] LABS: BICARBONATE 21.4 MEQ/L (21.0-32.0); POTASSIUM 3.4 MEQ/L (3.5-5.1)
[2017-05-17] MEDS: HEPARIN-D5W INJ 250 ML IV SCH ×2 (06:40→21:23)
[2017-05-17] MEDS: AMANTADINE HCL SOLN 100 MG/10 ML UDC PO SCH ×2 (06:40→11:05)
[2017-05-17] MEDS: CHLORHEXIDINE 0.12% (ORAL KIT) 15 ML CUP MT SCH ×2 (08:00→20:00)
[2017-05-17] MEDS: levETIRAcetam INJ 500 MG in SODIUM CHLORIDE 0.9% INJ 100 ML IV SCH ×2 (08:46→21:54)
[2017-05-17] MEDS: SODIUM CHLORIDE 0.9% FLUSH 10 ML FLUSH IV FLUSH PRN (08:47)
[2017-05-17] MEDS: DOCUSATE SODIUM 100 MG CAP PO SCH (09:00)
[2017-05-17] MEDS: FERROUS SULFATE 300 MG /5ML UDC PEG SCH (09:00)
[2017-05-17] MEDS: ASPIRIN 325 MG TAB PO SCH (09:01)
[2017-05-17] MEDS: VITAMIN B COMPLEX/VIT C TAB PEG SCH (09:01)
[2017-05-17] MEDS: FAMOTIDINE 20 MG TAB PEG SCH ×2 (09:01→21:54)
[2017-05-17] MEDS: ARTIFICIAL TEARS OPTH OINT 3.5 APPLIC/3.5 GM TUBO EACH EYE PRN (09:01)
[2017-05-17] MEDS: FLUCONAZOLE 100 MG TAB OG-TUBE SCH (09:01)
[2017-05-17] MEDS: ARTIFICIAL TEARS OPTH OINT 3.5 APPLIC/3.5 GM TUBO EACH EYE SCH ×2 (09:01→21:00)
[2017-05-17] MEDS: FOLIC ACID 1 MG TAB PEG SCH (09:01)
[2017-05-17] MEDS: POTASSIUM CHLOR 20 MEQ PREMIX 100 ML IV PRN (09:25)
[2017-05-17] MEDS: PROPRANOLOL HCL 10 MG TAB PO SCH ×3 (11:05→21:54)
[2017-05-17 13:56] LABS: APTT (PATIENT) 53.3 SEC (24.3-30.1)
--- NOTE | 2017-05-17 14:03 | HHI.IDPN ---
Subjective Subjective Remarks On CPAP + low grade fever up to 100.5 less responsive today W/u showed extensive venous thrombosis in LLE, RUE and IVC . Antibiotics CFTX fluconazole Allergies: Coded Allergies: Shellfish (Verified Allergy, Unknown, 04/26/17) Objective . Vital Signs Date Time Temp Pulse Resp B/P Pulse Ox O2 Delivery O2 Flow Rate FiO2 05/17/17 12:00 99.3 62 24 127/59 100 05/17/17 12:00 40 05/17/17 12:00 62 05/17/17 10:36 40 05/17/17 10:24 100 40 05/17/17 10:00 90 05/17/17 08:00 40 05/17/17 08:00 99.5 103 18 137/73 98 05/17/17 08:00 103 05/17/17 06:00 92 05/17/17 04:21 100 40 05/17/17 04:00 40 05/17/17 04:00 99.7 94 25 141/66 100 05/17/17 04:00 94 05/17/17 02:00 96 05/17/17 01:03 100 40 05/17/17 00:00 96 05/17/17 00:00 40 05/17/17 00:00 99.3 96 24 181/79 99 05/16/17 22:00 96 05/16/17 20:00 40 05/16/17 20:00 99.5 86 25 151/66 99 05/16/17 20:00 79 05/16/17 19:55 19 05/16/17 18:00 122 05/16/17 16:00 99.1 84 29 167/96 100 05/16/17 16:00 40 05/16/17 16:00 66 05/16/17 14:00 64 05/16/17 05/16/17 05/17/17 15:00 23:00 07:00 Intake Total 934 ml 919 ml 624 ml Output Total 825 ml 450 ml 600 ml Balance 109 ml 469 ml 24 ml IV Total 331 ml 466 ml 123 ml Tube Feeding 503 ml 413 ml 461 ml Other 100 ml 40 ml 40 ml Output Urine Total 425 ml 350 ml 500 ml Stool Total 400 ml 100 ml 100 ml . Laboratory Tests Test 05/15/17 05/16/17 05/17/17 21:37 11:16 05:22 White Blood Count 12.4 TH/MM3 11.6 TH/MM3 12.7 TH/MM3 Red Blood Count 2.70 MIL/MM3 2.63 MIL/MM3 2.78 MIL/MM3 Hemoglobin 8.0 GM/DL 8.0 GM/DL 8.5 GM/DL Hematocrit 24.9 % 24.4 % 25.6 % Mean Corpuscular Volume 92.0 FL 92.7 FL 91.9 FL Mean Corpuscular Hemoglobin 29.6 PG 30.2 PG 30.5 PG Mean Corpuscular Hemoglobin 32.2 % 32.6 % 33.2 % Concent Red Cell Distribution Width 15.7 % 15.9 % 15.9 % Platelet Count 482 TH/MM3 516 TH/MM3 574 TH/MM3 Mean Platelet Volume 9.3 FL 9.5 FL 9.5 FL Laboratory Tests Test 05/15/17 05/16/17 05/16/17 05/17/17 14:38 11:16 16:40 05:22 Potassium Level 4.6 MEQ/L 3.6 MEQ/L 3.4 MEQ/L Sodium Level 145 MEQ/L 145 MEQ/L Chloride Level 114 MEQ/L 112 MEQ/L Carbon Dioxide Level 18.2 MEQ/L 21.4 MEQ/L Anion Gap 13 MEQ/L 12 MEQ/L Blood Urea Nitrogen 19 MG/DL 17 MG/DL Creatinine 0.91 MG/DL 0.80 MG/DL Estimat Glomerular Filtration 67 ML/MIN 78 ML/MIN Rate Random Glucose 122 MG/DL 106 MG/DL Calcium Level 8.0 MG/DL 8.3 MG/DL Procalcitonin 0.36 ng/mL Microbiology Date/Time Procedure Status Source Growth 05/14/17 17:00 Gram Stain - Final Complete Sputum Endotracheal 05/14/17 17:00 Sputum Culture - Final Complete Escherichia Coli 05/16/17 13:38 Stool Occult Blood (MILO) - Final Complete Stool Stool HEMOCCULT NEGATIVE Imaging Last Impressions Head CT 05/17/17 0800 Signed Impressions: Service Date/Time: Wednesday, May 17, 2017 04:37 - CONCLUSION: No significant change subacute right middle cerebral artery distribution infarct with patchy parenchymal hemorrhage. Please see above. Juancho Dolan MD Upper Extremity Ultrasound 05/16/17 0000 Signed Impressions: Service Date/Time: Tuesday, May 16, 2017 14:01 - CONCLUSION: Thrombus in the right brachial and basilic veins and left cephalic vein. Juancho Wright MD Lower Extremity Ultrasound 05/15/17 Signed Impressions: Service Date/Time: Monday, May 15, 2017 18:37 - CONCLUSION: 1. There is nonocclusive thrombus within the left lower extremity veins including the external iliac vein, common femoral vein, and distal femoral vein. 2. The right lower extremity is patent with no DVT. Findings were telephoned to Dr. Acuna. Juancho Mayo MD Gall Bladder Ultrasound 05/15/17 Signed Impressions: Service Date/Time: Monday, May 15, 2017 14:17 - CONCLUSION: 1. No abnormality is identified to explain the abnormal lab values. There is mild hepatomegaly. 2. There is a nonocclusive thrombus within the inferior vena cava. 3. Nonspecific gallbladder wall thickening. The above findings concerning the IVC thrombus were relayed to Dr. Acuna via telephone at 4: 57 PM on 05/15/2017. Juancho Mayo MD CT Angiography 05/15/17 0000 Signed Impressions: Service Date/Time: Monday, May 15, 2017 18:01 - CONCLUSION: 1. Limited examination with visualization of the pulmonary arteries to the proximal segmental level only. No evidence for pulmonary embolism to the proximal segmental level. More distal emboli cannot be evaluated for. 2. Bilateral lower lobe air space consolidation and patchy focal airspace disease in the right upper lobe consistent with aspiration versus pneumonia. 3. Trace left pleural effusion. Cyrus Orozco MD Chest X-Ray 05/14/17 0000 Signed Impressions: Service Date/Time: Sunday, May 14, 2017 08:35 - CONCLUSION: Stable chest x-ray with patchy airspace opacity in lower lung zones bilaterally likely representing airspace consolidation or less likely atelectasis. Juancho Mayo MD Abdomen/Pelvis CT 05/12/17 0000 Signed Impressions: Service Date/Time: April 16:12 - CONCLUSION: 1. No findings to indicate acute intra-abdominal hemorrhage. 2. There are some punctate collections of free intraperitoneal air in the upper abdomen presumably from the patient's gastrostomy tube. 3. Consolidative changes in both lung bases. Olivier Younger MD Brain MRI 05/07/17 0000 Signed Impressions: Service Date/Time: Sunday, May 07, 2017 10:19 - CONCLUSION: Interval improvement. Significant hemorrhagic inversion remains in the deep white matter structures involving head of the caudate globus pallidus, anterior limb of internal capsule and part of the posterior limb. There are no new areas of ischemia. There are scattered areas of lenticular type hemorrhage involving the cortical surface of the left sylvian region that is new from the comparison study. There is no evidence for an evolving infarct in the left hemisphere. Phuc Younger MD FACR Neck CTA 04/26/[id number] Signed Impressions: Service Date/Time: Wednesday, April 26, 2017 13:39 - CONCLUSION: 1. Standard 3 vessel arch anatomy. 2. Widely patent carotid arteries. 3. Dominant left vertebral artery. Vertebral arteries are patent bilaterally. 4. 5 mm right thyroid nodule. This can be further evaluated with ultrasound on an outpatient basis. Cyrus Orozco MD Head CTA 04/26/[id number] Signed Impressions: Service Date/Time: Wednesday, April 26, 2017 13:39 - CONCLUSION: 1. Occlusion of the right M1 segment. Grossly intact mendoza-white matter differentiation with gross ASPECT score of 10/10. 2. Incidental finding of 5 mm right thyroid nodule. This can be further evaluated with ultrasound on an outpatient basis. Cyrus Orozco MD Cerebral Arteriogram 04/26/17 0000 Signed Impressions: Service Date/Time: Wednesday, April 26, 2017 14:57 - CONCLUSION: 1. Proximal right M1 occlusion consistent with findings on CT exam. 2. Numerous mechanical thrombectomy attempts due to challenging thrombus extraction and rethrombosis following thrombectomy. In total, ten separate thrombectomy attempts were performed yielding TICI 2b recanalization. Cyrus Orozco MD Physical Exam CONSTITUTIONAL/GENERAL: This is an adequately nourished patient, in no apparent distress. TUBES/LINES/DRAINS: SKIN: No jaundice, rashes, or lesions. Skin temperature appropriate. Not diaphoretic. HEAD: Buldging noted on R parieatal/temporal area clean, dry well approximated R pairieal inciosn. CARDIOVASCULAR: Regular rate and rhythm without murmurs, gallops, or rubs. No JVD. Peripheral pulses symmetric. RESPIRATORY/CHEST: Symmetric, unlabored respirations. Clear to auscultation. Breath sounds equal bilaterally. No wheezes, rales, or rhonchi. GASTROINTESTINAL: Abdomen soft, non-tender, mildly distended. No hepato- splenomegaly, or palpable masses. No guarding. Bowel sounds present. Fecal collection system in place with liquid brown stool GENITOURINARY: Without palpable bladder distension. Head catheter in place with clear yellow MUSCULOSKELETAL: Extremities without clubbing, cyanosis, or edema. NEUROLOGICAL: Eyes closed. Not following commnds PSYCHIATRIC: unable to assess Assessment & Plan Remarks Acute R MCA ischemic stroke with hemorrhagic transformation Fever: pofactoria - central, t2/2 DVT ? PNA 2/2 ? extensive venous thrombosis in LLE, RUE and IVC . ? central - BC neg procalcitonin trending down Leukocytosis - persistent Recent PNA, sp treatment, E.coli Acute VDRF, failure to wean Fungria, oral thrush Abx asociated high volume liquid diarrhea, C.diff negative: resolved -cont CFTX x 5 days - cont fluconazole x 5 days - fu BC fu clinically Larisa Matute MD May 17, 2017 14:03
--- NOTE | 2017-05-17 16:36 | HHI.PR ---
Review/Management Diagnosis right MCA stroke, s/p iv tpa and thrombectomy of right M1 thrombus. Plan I discussed case with Dr Freeman. I think it is reasonable to change anticoagulation to lovenox later this week and repeat CT brain next Tuesday and if stable consider transfer to rehab and transition to coumadin once at rehab. Diagnosis/Plan: Subjective Subjective Comments No acute events reported On iv heparin for extensive DVT Active Medications Current Medications Medications (Trade) Dose Ordered Sig/Elida Route Start Time Stop Time Status Last Admin (D50w (Vial) Inj) 25 ml UNSCH PRN IV PUSH 04/26/17 14:15 05/11/17 15:45 (Zofran Inj) 4 mg Q6H PRN IV 04/26/17 14:15 Miscellaneous Information 1 Q361D XX 04/26/17 14:15 (Chlorhexidine 2% Cloth) 3 pack Taper DAILY@04 TOP 04/27/17 04:00 04/23/18 03:59 05/17/17 04:00 (Chlorhexidine 2% Cloth) 3 pack UNSCH PRN TOP 04/26/17 14:15 (Trandate Inj) 20 mg Q15M PRN IV PUSH 04/26/17 15:30 05/17/17 01:52 Hydralazine HCl 10 mg 10 mg Q30M PRN IV PUSH 04/26/17 15:30 05/17/17 01:06 (Keppra Inj/NS Inj) 105 ml @ 400 mls/hr Q12H IV 04/27/17 21:00 05/17/17 08:46 (Dulcolax Supp) 10 mg DAILY PRN RECTAL 04/27/17 10:30 05/01/17 08:29 (Colace) 100 mg BID PO 04/27/17 21:00 05/16/17 20:00 Calcium Gluconate 1 gm 1 gm UNSCH PRN IV 04/27/17 10:30 04/30/17 19:04 Potassium Chloride 100 ml @ 50 mls/hr UNSCH PRN IV 04/27/17 10:30 05/17/17 09:25 (Magnesium Sulfate Inj/NS Inj) 108 ml @ 108 mls/hr UNSCH PRN IV 04/27/17 10:30 05/01/17 17:56 (Peridex 0.12% Liq) 15 ml BID@08,20 MT 04/27/17 20:00 05/17/17 08:00 (Lacrilube Opht Oint) APPLY UNDER BOTH EYELIDS BID EACH EYE 04/28/17 21:00 05/17/17 09:01 Lorazepam 1 mg 1 mg Q1H PRN IV 04/28/17 11:15 Miscellaneous Information ml @ 0 mls/hr UNSCH IV 04/28/17 11:15 (NS Flush) 2 ml UNSCH PRN IV FLUSH 04/28/17 11:15 05/17/17 08:47 (NS Flush) 2 ml UNSCH PRN IV FLUSH 04/28/17 11:15 (Lacrilube Opht Oint) 1 applic Q4H PRN EACH EYE 04/28/17 11:15 05/17/17 09:01 (Ofirmev Inj) 1,000 mg Q6H PRN IV 05/02/17 09:45 05/16/17 19:01 Amantadine HCl 200 mg 200 mg BID@07,12 PO 05/07/17 07:00 05/17/17 11:05 (Diprivan 1000 Mg/100ml Inj) 100 ml @ 0 mls/hr TITRATE IV 05/10/17 17:15 05/11/17 15:26 (Aspirin) 325 mg DAILY PO 05/11/17 09:00 05/17/17 09:01 (Pepcid) 20 mg BID PEG 05/14/17 21:00 05/17/17 09:01 (Ferrous Sulfate Liq) 300 mg DAILY PEG 05/16/17 09:00 05/17/17 09:00 (Folate) 1 mg DAILY PEG 05/16/17 09:00 05/17/17 09:01 Vitamin B Complex/ Vitamin C 1 tab 1 tab DAILY PEG 05/16/17 09:00 05/17/17 09:01 Ceftriaxone Sodium 2000 mg/ Sodium Chloride 100 ml @ 200 mls/hr Q24H IV 05/15/17 18:00 05/19/17 23:55 05/16/17 17:35 (Heparin-D5W Inj) 250 ml @ 0 mls/hr TITRATE IV 05/15/17 20:30 05/17/17 06:40 (Inderal) 10 mg Q6H PO 05/17/17 10:00 05/17/17 16:15 Allergies Allergies Coded Allergies Shellfish (Verified Allergy, Unknown, 04/26/17) Exam I&O / VS 05/16/17 05/16/17 05/17/17 15:00 23:00 07:00 Intake Total 934 ml 919 ml 624 ml Output Total 825 ml 450 ml 600 ml Balance 109 ml 469 ml 24 ml IV Total 331 ml 466 ml 123 ml Tube Feeding 503 ml 413 ml 461 ml Other 100 ml 40 ml 40 ml Output Urine Total 425 ml 350 ml 500 ml Stool Total 400 ml 100 ml 100 ml Vital Signs Date Time Temp Pulse Resp B/P Pulse Ox O2 Delivery O2 Flow Rate FiO2 05/17/17 16:00 98.8 85 31 141/73 96 05/17/17 16:00 85 05/17/17 14:00 90 05/17/17 12:00 99.3 62 24 127/59 100 05/17/17 12:00 40 05/17/17 12:00 62 05/17/17 10:36 40 05/17/17 10:24 100 40 05/17/17 10:00 90 05/17/17 08:00 40 05/17/17 08:00 99.5 103 18 137/73 98 05/17/17 08:00 103 05/17/17 06:00 92 05/17/17 04:21 100 40 05/17/17 04:00 40 05/17/17 04:00 99.7 94 25 141/66 100 05/17/17 04:00 94 05/17/17 02:00 96 05/17/17 01:03 100 40 05/17/17 00:00 96 05/17/17 00:00 40 05/17/17 00:00 99.3 96 24 181/79 99 05/16/17 22:00 96 05/16/17 20:00 40 05/16/17 20:00 99.5 86 25 151/66 99 05/16/17 20:00 79 05/16/17 19:55 19 05/16/17 18:00 122 Exam Comments nonresponsive pupils 3 mm right nonreactive, 2 mm left and reactive, disconjugate gaze improved today. Has eye /head deviation to right does withdraw BLE to tactile stim and also with more movement of BUE Objective Radiology Results CT brain this am shows stable right MCA stroke with severe edema and small amount of hemorrhage which is stable Micro and Labs Laboratory Tests Test 05/16/17 05/16/17 05/17/17 05/17/17 16:40 22:52 05:22 13:26 Activated Partial 43.8 53.0 33.0 53.3 Thromboplast Time Procalcitonin 0.36 White Blood Count 12.7 Red Blood Count 2.78 Hemoglobin 8.5 Hematocrit 25.6 Mean Corpuscular Volume 91.9 Mean Corpuscular Hemoglobin 30.5 Mean Corpuscular Hemoglobin 33.2 Concent Red Cell Distribution Width 15.9 Platelet Count 574 Mean Platelet Volume 9.5 Sodium Level 145 Potassium Level 3.4 Chloride Level 112 Carbon Dioxide Level 21.4 Anion Gap 12 Blood Urea Nitrogen 17 Creatinine 0.80 Estimat Glomerular Filtration 78 Rate Random Glucose 106 Calcium Level 8.3 Date/Time Procedure Status Source Growth 05/16/17 13:38 Stool Occult Blood (MILO) - Final Complete Stool Stool HEMOCCULT NEGATIVE 05/14/17 17:00 Gram Stain - Final Complete Sputum Endotracheal 05/14/17 17:00 Sputum Culture - Final Complete Escherichia Coli Santana Gomez PhD May 17, 2017 16:36
[2017-05-17] MEDS: cefTRIAXone INJ 2,000 MG in SODIUM CHLORIDE 0.9% INJ 100 ML IV SCH (18:11)
--- NOTE | 2017-05-17 18:13 | HHI.CCPN ---
Subjective Remarks/Hospital Course This is a 42yF with unremarkable past medical history who presents to the [facility] emergency department with new-onset left-sided weakness and slurred speech. She is an employee of [employer] who had a witnessed onset of her symptoms at 12:45pm. In the [facility] ED she was immediately taken for non-contrasted head CT which was negative for acute hemorrhage. She was given iv tpa which was instituted 36 minutes after arrival, per my conversation with the restorative coordinator. She was then emergently transferred to [facility]. CT angiography demonstrated acute right m1 cut-off. She was taken by [facility] and arrived directly to the IR suite, where I met and evaluated the patient. Due to the acute nature of her illness and her dysarthria, a complete history is not obtainable. She does endorse right-sided headache, although denied any chest pain, shortness of breath. 04/27: Back from OR after right craniectomy for decompression s/p left MCA CVA. Heavily sedated. Some new history from a co-worker indicates that patient started taking oral contraceptive 2 months ago. 04/28: Continued problems with cerebral edema as expected. Push osmolality a little higher and restrict fluid. Tolerate pH mildly acidotic to avoid cerebral vascular constriction. 04/29: Osmolality in good range. ICP controlled. Hypothermia to 34 degrees. Raise to 35 slowly as long as ICP is acceptable. Unable to start tube feeds yet as gut motility will be poor at cooler temperature. 04/30: ICP control good. Osmolality acceptable. Temp to 35 degrees. 05/01: Raise temp to 36 degrees and hold. CXR with light basilar infiltrates, no leukocytosis. Heavily sedated for brain protection/ICP control. Persistent blood sugars 60s range - will start D5/NS at 30/hr. 05/02: vasopressor requirement uptrending. wbc uptrending as well. repeat head ct with persistent edema, although ICPs slightly improved. 05/03: slight improvement in vasopressors and lactate with ivf resuscitation. however, still persists on high doses of multiple vasopressors. ICPs stable. off versed. sputum growing chowdhury-sensitive e-coli. I performed critical care bedside echo this morning which demonstrated preserved biventricular function, no significant valvular lesions, ivc with 20% variability and measures at 1.6cm. by echo appears clinically euvolemic. 05/04: vasopressors significantly improved throughout the night. but remains on two vasopressors. this morning, cvp climbing. weaning off sedation. bolt removed. icp's controlled. still poor neurologic exam, despite weaning off sedation. (delayed note entry. seen and evaluated at 06:20am). 05/05: patient seen and evaluated at 06:15am. almost off vasopressors. however, renal function significantly worse. patient is non-oliguric, but failing to diurese fast enough for rising filling pressures. FIO2 up to 100% this morning. CXR with evidence of volume overload. bedside ultrasound of the lungs demonstrate trace pleural effusions with densely consolidated lung oquendo. echo with dilated ivc without respiratory variation, RVSP ~50 mmHg based on trace TR jet. preserved LV and RV function. neuro exam remains poor. 05/06: diuresed > 8L uop overnight. fio2 down to 60%. Cr stabilized. Nephrology consulted. neuro exam still poor. 05/07: continues to diurese, >7L/24h. fio2 still at 50%. Cr stable. neuro exam: starting to withdraw x 4. MRI today without evidence of new infarction on the left. 05/08: slowly improving neurologic exam. fio2 improved as well. continues to diurese, and almost at dry weight. wbc uptrending and low-grade fever. remains on broad spectrum abx. 05/09: Remains encephalopathic off sedation, orally intubated on mechanical ventilation. One unit PRBCs ordered this morning for hemoglobin 6.9. No melena or rectal bleeding per RN. 05/10: Remains encephalopathic off sedation. Withdraws all 4 extremities to pain. Remains orally intubated on mechanical ventilation. Tolerating tube feeds. 05/11: Started on propofol last evening as she began to hyperventilate and gets tachypneic while on mechanical ventilation. Currently sedated, orally intubated on mechanical ventilation. Awaiting tracheostomy and PEG tube placement. 05/12: Patient underwent tracheostomy and PEG tube placement on 05/11 which she tolerated well. Fentanyl was stopped last evening and propofol was stopped around midnight. Remains encephalopathic, on mechanical ventilation via tracheostomy. Hemoglobin dropped to 6.6, being transfused 2 units PRBCs ordered earlier. 05/13: Encephalopathic on mechanical ventilation via tracheostomy. On C Pap trial currently. Did tolerate TPs for about 6 hours yesterday. 05/14: Remains encephalopathic on mechanical ventilation via tracheostomy. On C Pap overnight with pressure support +20, PEEP +5. Respiratory rate 28-30. Low- grade fevers. Tolerating tube feeds. 05/15: Remains encephalopathic on mechanical ventilation via tracheostomy. Opening eyes. Tolerating tube feeds. On C Pap trials. 05/16: neuro exam stable. trialed t-piece for 20 minutes, then became tachypneic and in distress. tolerating tube feeds. hgb stable. heparin drip continues. u/e doppler's with bilateral occlusive DVTs. 05/17: repeat interval head CT without significant change. OOB to chair today. hgb stable on heparin drip. family updated at bedside. full family meeting planned for afternoon. I talked with Dr. Gomez: plan will be tentatively to transition heparin drip to therapeutic lovenox on /tue of this week, repeat interval head CT tuesday, and plan for LTAC early next week if all remains stable. Objective Vital Signs Date Time Temp Pulse Resp B/P Pulse Ox O2 Delivery O2 Flow Rate FiO2 05/17/17 16:00 98.8 85 31 141/73 96 05/17/17 12:00 40 05/16/17 09:33 T-piece Intake and Output 05/16/17 05/16/17 05/17/17 08:00 16:00 00:00 Intake Total 545 ml 934 ml 919 ml Output Total 400 ml 825 ml 450 ml Balance 145 ml 109 ml 469 ml Result Diagram: 05/17/17 0522 05/17/17 0522 Other Results Microbiology Date/Time Procedure Status Source Growth 05/16/17 13:38 Stool Occult Blood (MILO) - Final Complete Stool Stool HEMOCCULT NEGATIVE Imaging Last [address] 05/09/17 0800 Signed Impressions: Service Date/Time: Tuesday, May 09, 2017 08:46 - CONCLUSION: 1. Stable areas of acute intraparenchymal hemorrhage within the right temporal and parietal lobes with the largest area measuring 3 cm. Extensive cytotoxic edema is also noted throughout the right middle cerebral artery distribution and is stable. There is persistent herniation of the right temporal, parietal and frontal lobes through the right craniectomy defect which is stable. Nam Rivas MD Head CT 05/08/17 0000 Signed Impressions: Service Date/Time: Monday, May 08, 2017 13:20 - CONCLUSION: Evolving subacute right middle cerebral artery distribution infarct. 3.2 cm acute parenchymal hemorrhage has developed within the infarcted and herniated right temporal lobe. Minimal midline shift. Juancho Dolan MD Chest X-Ray 05/08/17 0000 Signed Impressions: Service Date/Time: Monday, May 08, 2017 11:52 - CONCLUSION: 1. New right subclavian central venous catheter with tip at the atriocaval junction. No pneumothorax. 2. Unchanged other lines and tubes, including a left internal jugular central venous catheter with tip in the right atrium. 3. Left greater than right basilar consolidation, both sides improved. Juancho Dolan MD Last 24 hours Impressions Chest X-Ray 05/05/17 0000 Signed Impressions: Service Date/Time: April 03:59 - CONCLUSION: Prominent bibasilar infiltrates. Tubes and catheters are all in good position Bertin White MD Objective Remarks gen: middle-aged female, sitting in chair, encephalopathic heent: Positive pallor, no icterus. Tongue moist. Pupils 5 mm bilaterally reactive neck: Tracheostomy in place chest: On mechanical ventilation via tracheostomy. Good air entry bilaterally, decreased at bases, scattered rhonchi, no wheezing. cv: normal rate, regular rhythm. sinus by tele. abd: soft, nontender, nondistended. no guarding. extr: no peripheral edema. distal pulses palpable, well perfused. neuro: Remains encephalopathic, minimal eye opening occasionally, pupils are now 3mm, equal and reactive. withdraws x 4. Weak gag. A/P Assessment and Plan Assessment: 42yF with acute right M1 MCA CVA now s/p systemic TPA and attempted interventional mechanical thrombectomy. Her course is complicated by malignant cerebral edema requiring decompressive craniectomy and therapeutic hypothermia. She remains with cerebral edema, off pressors now. now with multiple venous thromboses, including intra-hepatic IVC, LEs, b/l UEs, requiring therapeutic anticoagulation. on heparin drip. plan for interval head CT in the AM. Highly complex patient with multiple medical comorbidities which require ongoing management, including hemorrhagic conversion of strokes, need for anticoagulation, DVTs, hypercoagulable state, s/p large MCA infarct, persistent chronic respiratory failure. Plan by Systems: Neuro: Acute right M1 MCA CVA s/p systemic TPA and endovascular thrombectomy Dysarthria Left-sided hemiparesis Left-sided facial droop Malignant Cerebral Edema s/p Decompressive Craniectomy Elevated ICP -- Continue neuro checks -- Off fentanyl since 05/11 evening. Propofol off since midnight 05/11. -- repeat EEG 05/04: generalized slowing. ?ictal focus over right hemisphere. -- repeat head CT 05/02, 05/04: stable edema, slightly enlarged left lateral ventricle, evolving right hemispheric cva. Head CT 05/08 and 05/09 with right temporoparietal 3cm intraparenchymal hemorrhage in herniated area. Neurosurgery following. -- Off hyperosmolar therapy. slowly normalize sodium. -- Folow sodium levels -- SBP goal 110 - 160. -- keppra for seizure ppx -- Started on aspirin 325 mg daily on 05/12 (cleared by Dr. Nathan) Respiratory: Acute hypoxic and Hypercarbic respiratory failure --S/p perc tracheostomy on 05/11. Daily C Pap/ T piece trials as tolerated, will attempt longer t-piece trials daily -- wean fio2 for goal spo2 > 90% -- vent bundle -- elevated HOB Cardiovascular Septic Shock- resolved Relative Adrenal Insufficiency Acute intravascular volume overload- resolved. -- goal sbp 110 - 160 -- off vasopressors. off hydrocortisone. Renal: Acute Kidney Injury- resolving. -- continue ribera with strict i/o's -- Remains on free water via OGT. -- Off bumex drip/ Diamox since 05/08 -- Monitor and replete electrolytes, follow BUN/creatinine FEN/GI Acute protein calorie malnutrition- moderate Hypernatremia Lactic Acidosis- resolved. Anion-gap metabolic acidosis- resolved. Metabolic Alkalosis secondary to intravascular contraction- improved. -- TF, Jevity -- ICU electrolyte protocol -- Monitor and replete electrolytes. -- diamox 500mg iv q8h - stopped 05/08 -- Stopped free water on 05/14. Heme/ID: Anemia secondary to acute blood loss/ iron deficiency Sepsis/Leukocytosis E. Coli Pneumonia, likely secondary to aspiration at time of stroke Hypercoagulability Multiple Upper and Lower extremity DVTs -- Completed 10 days of Zosyn on 05/11. -- sputum culture 05/01, 05/09: e.coli, chowdhury sensitive -- urine, blood cultures 05/02 NGTD. -- daily cbc. Labs suggest iron deficiency. Initiated iron sucrose 200 mg IV daily 3 days on 05/11. 2 units PRBCs being transfused on 05/12 for hemoglobin 6.6. No overt evidence of GI blood loss. No evidence of bleeding from tracheostomy or PEG tube site. CT abdomen pelvis done on 05/12 with no evidence of retroperitoneal bleed. Starting oral iron/ B12, folic acid on 05/15. -- leukocytosis is concerning, CVL replaced 05/08, urine culture with Tej from 05/08, replaced Ribera and resent urine culture on 05/09 which is also growing tej. Started fluconazole 100 mg via OG tube daily on 05/09. Completed Zosyn day #10 on 05/11. Leukocytosis noted. Blood cultures 2 repeated on 05/12. Stool for C. difficile negative on 05/12. CT abdomen pelvis without contrast(05/12) in view of drop in hemoglobin and leukocytosis did not reveal any evidence of retroperitoneal or intraperitoneal bleed. No fluid collections noted. Check right upper quadrant ultrasound on 05/15 for borderline elevation of LFTs and fevers. ID following on heparin drip for anticoagulation. repeat AM CT brain stable. Anticoagulation plan: Transition to therapeutic lovenox /tuesday and if stable, interval head CT on Tuesday. plan for LTAC with therapeutic lovenox early next week, and then plan to eventually transition to coumadin, once out of high-risk re-bleed window. very high risk patient for bleeding, but also high risk for clotting, as now has developed multiple left and right sided emboli. Endo: Hypoglycemia- improved. Adrenal Insufficiency -- Off d10w, glycemic control improved. -- frequent glucose checks. -- out of shock. decrease hydrocortisone to 50 mg iv daily on 05/12, d/c'd on (Random cortisol while in shock was 6) Prophy: -- SCDs, heparin drip --Pepcid via PEG for gi prophylaxis Lines: -- LIJ TLC-discontinued 05/08. Right subclavian central line placed 05/08 - to be discontinued 05/15 after per IV placed. -- right radial art line 05/05- discontinued 05/11 piv's ribera dispo: remain in the ICU. high risk for decompensation in this highly complex patient. Remi Freeman MD May 17, 2017 18:12
[2017-05-17 19:48] LABS: APTT (PATIENT) 50.5 SEC (24.3-30.1)
[2017-05-17] MEDS: NUTRISOURCE FIBER POWDER 1 PACK G-TUBE SCH (21:00)
[2017-05-18] VITALS (17 sets, daily range): BP systolic 136–144; BP diastolic 70–82; PULSE 52–97; RESP 24–30; TEMP 98.7–99.9; O2SAT 96–99
[2017-05-18] MEDS: CHLORHEXIDINE GLUCONATE 2 % 1 PACK (2 CLOTHS) TOP SCH (04:00)
[2017-05-18 04:19] LABS: HEMATOCRIT 22.8 % (35.0-46.0); MEAN CELL VOLUME 92.6 FL (80.0-100.0); MEAN CORPUSCULAR HEMOGLOBIN 31.8 PG (27.0-34.0); MEAN CORPUSCULAR HGB CONC 34.3 % (32.0-36.0); PLATELET COUNT 513 TH/MM3 (150-450); RED BLOOD COUNT 2.47 MIL/MM3 (4.00-5.30); RED CELL DISTRIBUTION WIDTH 17.1 % (11.6-17.2); REVIEW FLAG FINAL; WHITE BLOOD COUNT 10.3 TH/MM3 (4.0-11.0)
[2017-05-18 04:25] LABS: APTT (PATIENT) 61.3 SEC (24.3-30.1)
[2017-05-18 04:28] LABS: BICARBONATE 21.5 MEQ/L (21.0-32.0); POTASSIUM 3.3 MEQ/L (3.5-5.1)
[2017-05-18] MEDS: AMANTADINE HCL SOLN 100 MG/10 ML UDC PO SCH ×2 (04:55→12:04)
[2017-05-18] MEDS: POTASSIUM CHLOR 20 MEQ PREMIX 100 ML IV PRN (04:55)
[2017-05-18] MEDS: PROPRANOLOL HCL 10 MG TAB PO SCH ×4 (04:55→22:38)
[2017-05-18] MEDS: CHLORHEXIDINE 0.12% (ORAL KIT) 15 ML CUP MT SCH ×2 (08:00→20:33)
[2017-05-18] MEDS: NUTRISOURCE FIBER POWDER 1 PACK G-TUBE SCH ×2 (09:00→20:34)
[2017-05-18] MEDS: ARTIFICIAL TEARS OPTH OINT 3.5 APPLIC/3.5 GM TUBO EACH EYE SCH ×2 (09:00→20:33)
[2017-05-18] MEDS: levETIRAcetam INJ 500 MG in SODIUM CHLORIDE 0.9% INJ 100 ML IV SCH ×2 (09:08→20:59)
[2017-05-18] MEDS: FAMOTIDINE 20 MG TAB PEG SCH ×2 (09:09→21:00)
[2017-05-18] MEDS: FERROUS SULFATE 300 MG /5ML UDC PEG SCH (09:09)
[2017-05-18] MEDS: VITAMIN B COMPLEX/VIT C TAB PEG SCH (09:09)
[2017-05-18] MEDS: FOLIC ACID 1 MG TAB PEG SCH (09:09)
[2017-05-18] MEDS: ASPIRIN 325 MG TAB PO SCH (09:09)
--- NOTE | 2017-05-18 11:45 | HHI.CCPN ---
Subjective Remarks/Hospital Course This is a 42yF with unremarkable past medical history who presents to the [facility] emergency department with new-onset left-sided weakness and slurred speech. She is an employee of [employer] who had a witnessed onset of her symptoms at 12:45pm. In the [facility] ED she was immediately taken for non-contrasted head CT which was negative for acute hemorrhage. She was given iv tpa which was instituted 36 minutes after arrival, per my conversation with the international marketing coordinator. She was then emergently transferred to [facility]. CT angiography demonstrated acute right m1 cut-off. She was taken by [facility] and arrived directly to the IR suite, where I met and evaluated the patient. Due to the acute nature of her illness and her dysarthria, a complete history is not obtainable. She does endorse right-sided headache, although denied any chest pain, shortness of breath. 04/27: Back from OR after right craniectomy for decompression s/p left MCA CVA. Heavily sedated. Some new history from a co-worker indicates that patient started taking oral contraceptive 2 months ago. 04/28: Continued problems with cerebral edema as expected. Push osmolality a little higher and restrict fluid. Tolerate pH mildly acidotic to avoid cerebral vascular constriction. 04/29: Osmolality in good range. ICP controlled. Hypothermia to 34 degrees. Raise to 35 slowly as long as ICP is acceptable. Unable to start tube feeds yet as gut motility will be poor at cooler temperature. 04/30: ICP control good. Osmolality acceptable. Temp to 35 degrees. 05/01: Raise temp to 36 degrees and hold. CXR with light basilar infiltrates, no leukocytosis. Heavily sedated for brain protection/ICP control. Persistent blood sugars 60s range - will start D5/NS at 30/hr. 05/02: vasopressor requirement uptrending. wbc uptrending as well. repeat head ct with persistent edema, although ICPs slightly improved. 05/03: slight improvement in vasopressors and lactate with ivf resuscitation. however, still persists on high doses of multiple vasopressors. ICPs stable. off versed. sputum growing chowdhury-sensitive e-coli. I performed critical care bedside echo this morning which demonstrated preserved biventricular function, no significant valvular lesions, ivc with 20% variability and measures at 1.6cm. by echo appears clinically euvolemic. 05/04: vasopressors significantly improved throughout the night. but remains on two vasopressors. this morning, cvp climbing. weaning off sedation. bolt removed. icp's controlled. still poor neurologic exam, despite weaning off sedation. (delayed note entry. seen and evaluated at 06:20am). 05/05: patient seen and evaluated at 06:15am. almost off vasopressors. however, renal function significantly worse. patient is non-oliguric, but failing to diurese fast enough for rising filling pressures. FIO2 up to 100% this morning. CXR with evidence of volume overload. bedside ultrasound of the lungs demonstrate trace pleural effusions with densely consolidated lung oquendo. echo with dilated ivc without respiratory variation, RVSP ~50 mmHg based on trace TR jet. preserved LV and RV function. neuro exam remains poor. 05/06: diuresed > 8L uop overnight. fio2 down to 60%. Cr stabilized. Nephrology consulted. neuro exam still poor. 05/07: continues to diurese, >7L/24h. fio2 still at 50%. Cr stable. neuro exam: starting to withdraw x 4. MRI today without evidence of new infarction on the left. 05/08: slowly improving neurologic exam. fio2 improved as well. continues to diurese, and almost at dry weight. wbc uptrending and low-grade fever. remains on broad spectrum abx. 05/09: Remains encephalopathic off sedation, orally intubated on mechanical ventilation. One unit PRBCs ordered this morning for hemoglobin 6.9. No melena or rectal bleeding per RN. 05/10: Remains encephalopathic off sedation. Withdraws all 4 extremities to pain. Remains orally intubated on mechanical ventilation. Tolerating tube feeds. 05/11: Started on propofol last evening as she began to hyperventilate and gets tachypneic while on mechanical ventilation. Currently sedated, orally intubated on mechanical ventilation. Awaiting tracheostomy and PEG tube placement. 05/12: Patient underwent tracheostomy and PEG tube placement on 05/11 which she tolerated well. Fentanyl was stopped last evening and propofol was stopped around midnight. Remains encephalopathic, on mechanical ventilation via tracheostomy. Hemoglobin dropped to 6.6, being transfused 2 units PRBCs ordered earlier. 05/13: Encephalopathic on mechanical ventilation via tracheostomy. On C Pap trial currently. Did tolerate TPs for about 6 hours yesterday. 05/14: Remains encephalopathic on mechanical ventilation via tracheostomy. On C Pap overnight with pressure support +20, PEEP +5. Respiratory rate 28-30. Low- grade fevers. Tolerating tube feeds. 05/15: Remains encephalopathic on mechanical ventilation via tracheostomy. Opening eyes. Tolerating tube feeds. On C Pap trials. 05/16: neuro exam stable. trialed t-piece for 20 minutes, then became tachypneic and in distress. tolerating tube feeds. hgb stable. heparin drip continues. u/e doppler's with bilateral occlusive DVTs. 05/17: repeat interval head CT without significant change. OOB to chair today. hgb stable on heparin drip. family updated at bedside. full family meeting planned for afternoon. I talked with Dr. Gomez: plan will be tentatively to transition heparin drip to therapeutic lovenox on /tue of this week, repeat interval head CT tuesday, and plan for LTAC early next week if all remains stable. 05/18: hgb slight drop from 8.5 --> 7.8 today. otherwise neuro stable. no new complaints and nothing per nursing. Objective Vital Signs Date Time Temp Pulse Resp B/P Pulse Ox O2 Delivery O2 Flow Rate FiO2 05/18/17 11:13 96 40 05/18/17 06:00 62 05/18/17 04:00 98.7 25 141/70 05/17/17 20:25 T-piece Intake and Output 05/17/17 05/17/17 05/18/17 08:00 16:00 00:00 Intake Total 624 ml 905 ml 1108 ml Output Total 600 ml 900 ml 100 ml Balance 24 ml 5 ml 1008 ml Result Diagram: 05/18/17 0310 05/18/17 0310 Other Results Microbiology Date/Time Procedure Status Source Growth 05/16/17 13:38 Stool Occult Blood (MILO) - Final Complete Stool Stool HEMOCCULT NEGATIVE Imaging Last [address] 05/09/17 0800 Signed Impressions: Service Date/Time: Tuesday, May 09, 2017 08:46 - CONCLUSION: 1. Stable areas of acute intraparenchymal hemorrhage within the right temporal and parietal lobes with the largest area measuring 3 cm. Extensive cytotoxic edema is also noted throughout the right middle cerebral artery distribution and is stable. There is persistent herniation of the right temporal, parietal and frontal lobes through the right craniectomy defect which is stable. Nam Rivas MD Head CT 05/08/17 0000 Signed Impressions: Service Date/Time: Monday, May 08, 2017 13:20 - CONCLUSION: Evolving subacute right middle cerebral artery distribution infarct. 3.2 cm acute parenchymal hemorrhage has developed within the infarcted and herniated right temporal lobe. Minimal midline shift. Juancho Dolan MD Chest X-Ray 05/08/17 0000 Signed Impressions: Service Date/Time: Monday, May 08, 2017 11:52 - CONCLUSION: 1. New right subclavian central venous catheter with tip at the atriocaval junction. No pneumothorax. 2. Unchanged other lines and tubes, including a left internal jugular central venous catheter with tip in the right atrium. 3. Left greater than right basilar consolidation, both sides improved. Juancho Dolan MD Last 24 hours Impressions Chest X-Ray 05/05/17 0000 Signed Impressions: Service Date/Time: April 03:59 - CONCLUSION: Prominent bibasilar infiltrates. Tubes and catheters are all in good position Bertin White MD Objective Remarks gen: middle-aged female, sitting in chair, encephalopathic heent: Positive pallor, no icterus. Tongue moist. Pupils 5 mm bilaterally reactive neck: Tracheostomy in place chest: On mechanical ventilation via tracheostomy. Good air entry bilaterally, decreased at bases, scattered rhonchi, no wheezing. cv: normal rate, regular rhythm. sinus by tele. abd: soft, nontender, nondistended. no guarding. extr: no peripheral edema. distal pulses palpable, well perfused. neuro: Remains encephalopathic, minimal eye opening occasionally, pupils are now 3mm, equal and reactive. withdraws x 4. Weak gag. A/P Assessment and Plan Assessment: 42yF with acute right M1 MCA CVA now s/p systemic TPA and attempted interventional mechanical thrombectomy. Her course is complicated by malignant cerebral edema requiring decompressive craniectomy and therapeutic hypothermia. She remains with cerebral edema, off pressors now. now with multiple venous thromboses, including intra-hepatic IVC, LEs, b/l UEs, requiring therapeutic anticoagulation. on heparin drip. plan for interval head CT in the AM. Highly complex patient with multiple medical comorbidities which require ongoing management, including hemorrhagic conversion of strokes, need for anticoagulation, DVTs, hypercoagulable state, s/p large MCA infarct, persistent chronic respiratory failure. Plan by Systems: Neuro: Acute right M1 MCA CVA s/p systemic TPA and endovascular thrombectomy Dysarthria Left-sided hemiparesis Left-sided facial droop Malignant Cerebral Edema s/p Decompressive Craniectomy Elevated ICP -- Continue neuro checks -- Off fentanyl since 05/11 evening. Propofol off since midnight 05/11. -- repeat EEG 05/04: generalized slowing. ?ictal focus over right hemisphere. -- repeat head CT 05/02, 05/04: stable edema, slightly enlarged left lateral ventricle, evolving right hemispheric cva. Head CT 05/08 and 05/09 with right temporoparietal 3cm intraparenchymal hemorrhage in herniated area. Neurosurgery following. -- Off hyperosmolar therapy. slowly normalize sodium. -- Folow sodium levels -- SBP goal 110 - 160. -- keppra for seizure ppx -- Started on aspirin 325 mg daily on 05/12 (cleared by Dr. Nathan) Respiratory: Acute hypoxic and Hypercarbic respiratory failure --S/p perc tracheostomy on 05/11. Daily C Pap/ T piece trials as tolerated, will attempt longer t-piece trials daily -- wean fio2 for goal spo2 > 90% -- vent bundle -- elevated HOB -- continue OOB to chair daily. daily SBTs and t-piece as tolerated. Cardiovascular Septic Shock- resolved Relative Adrenal Insufficiency Acute intravascular volume overload- resolved. -- goal sbp 110 - 160 -- off vasopressors. off hydrocortisone. Renal: Acute Kidney Injury- resolved. -- removed ribera 05/17 and straight cath q6h. -- Remains on free water via OGT. -- Off bumex drip/ Diamox since 05/08 -- Monitor and replete electrolytes, follow BUN/creatinine FEN/GI Acute protein calorie malnutrition- moderate Hypernatremia Lactic Acidosis- resolved. Anion-gap metabolic acidosis- resolved. Metabolic Alkalosis secondary to intravascular contraction- improved. -- TF, Jevity -- ICU electrolyte protocol -- Monitor and replete electrolytes. -- diamox 500mg iv q8h - stopped 05/08 -- Stopped free water on 05/14. Heme/ID: Anemia secondary to acute blood loss/ iron deficiency Sepsis/Leukocytosis E. Coli Pneumonia, likely secondary to aspiration at time of stroke Hypercoagulability Multiple Upper and Lower extremity DVTs -- Completed 10 days of Zosyn on 05/11. -- sputum culture 05/01, 05/09: e.coli, chowdhury sensitive -- urine, blood cultures 05/02 NGTD. -- daily cbc. Labs suggest iron deficiency. Initiated iron sucrose 200 mg IV daily 3 days on 05/11. 2 units PRBCs being transfused on 05/12 for hemoglobin 6.6. No overt evidence of GI blood loss. No evidence of bleeding from tracheostomy or PEG tube site. CT abdomen pelvis done on 05/12 with no evidence of retroperitoneal bleed. Starting oral iron/ B12, folic acid on 05/15. -- leukocytosis is concerning, CVL replaced 05/08, urine culture with Tej from 05/08, replaced Ribera and resent urine culture on 05/09 which is also growing tej. Started fluconazole 100 mg via OG tube daily on 05/09. Completed Zosyn day #10 on 05/11. Leukocytosis noted. Blood cultures 2 repeated on 05/12. Stool for C. difficile negative on 05/12. CT abdomen pelvis without contrast(05/12) in view of drop in hemoglobin and leukocytosis did not reveal any evidence of retroperitoneal or intraperitoneal bleed. No fluid collections noted. Check right upper quadrant ultrasound on 05/15 for borderline elevation of LFTs and fevers. ID following slight Hgb drop today. will recheck this afternoon H&H. no signs of active bleeding. on heparin drip for anticoagulation. repeat AM CT brain stable. Anticoagulation plan: Transition to therapeutic lovenox /tuesday and if stable, interval head CT on Tuesday. plan for LTAC with therapeutic lovenox early next week, and then plan to eventually transition to coumadin, once out of high-risk re-bleed window. very high risk patient for bleeding, but also high risk for clotting, as now has developed multiple left and right sided emboli. Endo: Hypoglycemia- improved. Adrenal Insufficiency -- Off d10w, glycemic control improved. -- frequent glucose checks. -- out of shock. decrease hydrocortisone to 50 mg iv daily on 05/12, d/c'd on (Random cortisol while in shock was 6) Prophy: -- SCDs, heparin drip --Pepcid via PEG for gi prophylaxis Lines: -- LIJ TLC-discontinued 05/08. Right subclavian central line placed 05/08 - to be discontinued 05/15 after per IV placed. -- right radial art line 05/05- discontinued 05/11 piv's ribera removed 05/17, I/O straight cath q6h. dispo: remain in the ICU. high risk for decompensation in this highly complex patient. Remi Freeman MD May 18, 2017 11:45
[2017-05-18] MEDS: HEPARIN-D5W INJ 250 ML IV SCH (13:17)
[2017-05-18 13:34] LABS: HEMATOCRIT 24.7 % (35.0-46.0); REVIEW FLAG FINAL
[2017-05-18] MEDS: cefTRIAXone INJ 2,000 MG in SODIUM CHLORIDE 0.9% INJ 100 ML IV SCH (17:58)
--- NOTE | 2017-05-18 19:18 | HHI.IDPN ---
Subjective Subjective Remarks tolearting Tpiece + low grade fever < 100 Not opening eyes or following commands today W/u showed extensive venous thrombosis in LLE, RUE and IVC . Antibiotics CFTX fluconazole Allergies: Coded Allergies: Shellfish (Verified Allergy, Unknown, 04/26/17) Objective . Vital Signs Date Time Temp Pulse Resp B/P Pulse Ox O2 Delivery O2 Flow Rate FiO2 05/18/17 18:00 52 05/18/17 16:00 87 05/18/17 16:00 99.0 87 25 140/82 98 05/18/17 14:00 83 05/18/17 12:00 99.2 84 30 144/79 98 05/18/17 12:00 40 05/18/17 12:00 84 05/18/17 11:13 96 40 05/18/17 10:00 88 05/18/17 08:25 97 40 05/18/17 08:00 99.9 80 27 144/75 98 05/18/17 08:00 80 05/18/17 08:00 40 05/18/17 06:00 62 05/18/17 04:00 40 05/18/17 04:00 77 05/18/17 04:00 98.7 77 25 141/70 97 05/18/17 03:47 99 40 05/18/17 02:00 74 05/18/17 01:39 99 40 05/18/17 00:00 99.3 74 24 136/79 99 05/18/17 00:00 77 05/17/17 23:13 99 40 05/17/17 22:00 88 05/17/17 20:25 100 T-piece 40 05/17/17 20:00 98.6 74 26 148/79 98 05/17/17 20:00 76 05/17/17 05/17/17 05/18/17 15:00 23:00 07:00 Intake Total 905 ml 1108 ml 915 ml Output Total 900 ml 100 ml 250 ml Balance 5 ml 1008 ml 665 ml IV Total 397 ml 544 ml 449 ml Tube Feeding 448 ml 444 ml 346 ml Other 60 ml 120 ml 120 ml Output Urine Total 250 ml 250 ml Stool Total 650 ml 100 ml # Voids 1 . Laboratory Tests Test 05/17/17 05/18/17 05/18/17 05:22 03:10 13:17 White Blood Count 12.7 TH/MM3 10.3 TH/MM3 Red Blood Count 2.78 MIL/MM3 2.47 MIL/MM3 Hemoglobin 8.5 GM/DL 7.8 GM/DL 8.3 GM/DL Hematocrit 25.6 % 22.8 % 24.7 % Mean Corpuscular Volume 91.9 FL 92.6 FL Mean Corpuscular Hemoglobin 30.5 PG 31.8 PG Mean Corpuscular Hemoglobin 33.2 % 34.3 % Concent Red Cell Distribution Width 15.9 % 17.1 % Platelet Count 574 TH/MM3 513 TH/MM3 Mean Platelet Volume 9.5 FL 9.7 FL Laboratory Tests Test 05/17/17 05/17/17 05/18/17 05:22 18:33 03:10 Sodium Level 145 MEQ/L 146 MEQ/L Potassium Level 3.4 MEQ/L 3.5 MEQ/L 3.3 MEQ/L Chloride Level 112 MEQ/L 113 MEQ/L Carbon Dioxide Level 21.4 MEQ/L 21.5 MEQ/L Anion Gap 12 MEQ/L 12 MEQ/L Blood Urea Nitrogen 17 MG/DL 22 MG/DL Creatinine 0.80 MG/DL 0.70 MG/DL Estimat Glomerular Filtration 78 ML/MIN 91 ML/MIN Rate Random Glucose 106 MG/DL 117 MG/DL Calcium Level 8.3 MG/DL 8.0 MG/DL Microbiology Date/Time Procedure Status Source Growth 05/16/17 13:38 Stool Occult Blood (MILO) - Final Complete Stool Stool HEMOCCULT NEGATIVE Imaging Last Impressions Head CT 05/17/17 0800 Signed Impressions: Service Date/Time: Wednesday, May 17, 2017 04:37 - CONCLUSION: No significant change subacute right middle cerebral artery distribution infarct with patchy parenchymal hemorrhage. Please see above. Juancho Dolan MD Upper Extremity Ultrasound 05/16/17 0000 Signed Impressions: Service Date/Time: Tuesday, May 16, 2017 14:01 - CONCLUSION: Thrombus in the right brachial and basilic veins and left cephalic vein. Juancho Wright MD Lower Extremity Ultrasound 05/15/17 0000 Signed Impressions: Service Date/Time: Monday, May 15, 2017 18:37 - CONCLUSION: 1. There is nonocclusive thrombus within the left lower extremity veins including the external iliac vein, common femoral vein, and distal femoral vein. 2. The right lower extremity is patent with no DVT. Findings were telephoned to Dr. Acuna. Juancho Mayo MD Gall Bladder Ultrasound 05/15/17 0000 Signed Impressions: Service Date/Time: Monday, May 15, 2017 14:17 - CONCLUSION: 1. No abnormality is identified to explain the abnormal lab values. There is mild hepatomegaly. 2. There is a nonocclusive thrombus within the inferior vena cava. 3. Nonspecific gallbladder wall thickening. The above findings concerning the IVC thrombus were relayed to Dr. Acuna via telephone at 4: 57 PM on 05/15/2017. Juancho Mayo MD CT Angiography 05/15/17 0000 Signed Impressions: Service Date/Time: Monday, May 15, 2017 18:01 - CONCLUSION: 1. Limited examination with visualization of the pulmonary arteries to the proximal segmental level only. No evidence for pulmonary embolism to the proximal segmental level. More distal emboli cannot be evaluated for. 2. Bilateral lower lobe air space consolidation and patchy focal airspace disease in the right upper lobe consistent with aspiration versus pneumonia. 3. Trace left pleural effusion. Cyrus Orozco MD Chest X-Ray 05/14/17 0000 Signed Impressions: Service Date/Time: Sunday, May 14, 2017 08:35 - CONCLUSION: Stable chest x-ray with patchy airspace opacity in lower lung zones bilaterally likely representing airspace consolidation or less likely atelectasis. Juancho Mayo MD Abdomen/Pelvis CT 05/12/17 0000 Signed Impressions: Service Date/Time: April 16:12 - CONCLUSION: 1. No findings to indicate acute intra-abdominal hemorrhage. 2. There are some punctate collections of free intraperitoneal air in the upper abdomen presumably from the patient's gastrostomy tube. 3. Consolidative changes in both lung bases. Olivier Younger MD Brain MRI 05/07/17 0000 Signed Impressions: Service Date/Time: Sunday, May 07, 2017 10:19 - CONCLUSION: Interval improvement. Significant hemorrhagic inversion remains in the deep white matter structures involving head of the caudate globus pallidus, anterior limb of internal capsule and part of the posterior limb. There are no new areas of ischemia. There are scattered areas of lenticular type hemorrhage involving the cortical surface of the left sylvian region that is new from the comparison study. There is no evidence for an evolving infarct in the left hemisphere. Phuc Younger MD FACR Neck CTA [id number]/26/[id number] Signed Impressions: Service Date/Time: Wednesday, April 26, 2017 13:39 - CONCLUSION: 1. Standard 3 vessel arch anatomy. 2. Widely patent carotid arteries. 3. Dominant left vertebral artery. Vertebral arteries are patent bilaterally. 4. 5 mm right thyroid nodule. This can be further evaluated with ultrasound on an outpatient basis. Cyrus Orozco MD Head CTA [id number]/26/[id number] Signed Impressions: Service Date/Time: Wednesday, April 26, 2017 13:39 - CONCLUSION: 1. Occlusion of the right M1 segment. Grossly intact mendoza-white matter differentiation with gross ASPECT score of 10/10. 2. Incidental finding of 5 mm right thyroid nodule. This can be further evaluated with ultrasound on an outpatient basis. Cyrus Orozco MD Cerebral Arteriogram 04/26/17 0000 Signed Impressions: Service Date/Time: Wednesday, April 26, 2017 14:57 - CONCLUSION: 1. Proximal right M1 occlusion consistent with findings on CT exam. 2. Numerous mechanical thrombectomy attempts due to challenging thrombus extraction and rethrombosis following thrombectomy. In total, ten separate thrombectomy attempts were performed yielding TICI 2b recanalization. Cyrus Orozco MD Physical Exam CONSTITUTIONAL/GENERAL: This is an adequately nourished patient, in no apparent distress. TUBES/LINES/DRAINS: SKIN: No jaundice, rashes, or lesions. Skin temperature appropriate. Not diaphoretic. HEAD: Buldging noted on R parieatal/temporal area discongugated gaze, R pupil >L clean, dry well approximated R pairieal inciosn. CARDIOVASCULAR: Regular rate and rhythm without murmurs, gallops, or rubs. No JVD. Peripheral pulses symmetric. RESPIRATORY/CHEST: Symmetric, unlabored respirations. Clear to auscultation. Breath sounds equal bilaterally. No wheezes, rales, or rhonchi. GASTROINTESTINAL: Abdomen soft, non-tender, mildly distended. No hepato- splenomegaly, or palpable masses. No guarding. Bowel sounds present. Fecal collection system in place with liquid brown stool GENITOURINARY: Without palpable bladder distension. Head catheter in place with clear yellow MUSCULOSKELETAL: Extremities without clubbing, cyanosis, + BLE non pitting soft edema. NEUROLOGICAL: Eyes closed. Not following commands withdraws x 4 PSYCHIATRIC: unable to assess Assessment & Plan Remarks Acute R MCA ischemic stroke with hemorrhagic transformation Fever: polyfactorial - central, t2/2 DVT ? PNA 2/2 ? extensive venous thrombosis in LLE, RUE and IVC . ? central - BC neg procalcitonin trending down Leukocytosis - resolved Recent PNA, sp treatment, E.coli - improving resp status Acute VDRF, toleatring Tpiece Fungria, oral thrush sp tx Abx asociated high volume liquid diarrhea, C.diff negative: resolved -cont CFTX x 5 days - fu BC fu clinically dw mother dw Dr ePte Matute,Larisa Cervantes MD May 18, 2017 19:18
[2017-05-19] VITALS (13 sets, daily range): BP systolic 111–154; BP diastolic 67–92; PULSE 56–96; RESP 16–28; TEMP 98.4–99.2; O2SAT 95–99
[2017-05-19] MEDS: CHLORHEXIDINE GLUCONATE 2 % 1 PACK (2 CLOTHS) TOP SCH (03:52)
[2017-05-19] MEDS: PROPRANOLOL HCL 10 MG TAB PO SCH ×4 (03:52→21:04)
[2017-05-19 04:21] LABS: HEMATOCRIT 25.5 % (35.0-46.0); MEAN CORPUSCULAR HEMOGLOBIN 30.7 PG (27.0-34.0); MEAN CORPUSCULAR HGB CONC 32.7 % (32.0-36.0); PLATELET COUNT 505 TH/MM3 (150-450); RED BLOOD COUNT 2.71 MIL/MM3 (4.00-5.30); RED CELL DISTRIBUTION WIDTH 17.4 % (11.6-17.2); REVIEW FLAG FINAL
[2017-05-19 04:24] LABS: APTT (PATIENT) 59.5 SEC (24.3-30.1)
[2017-05-19 04:27] LABS: BICARBONATE 20.8 MEQ/L (21.0-32.0); POTASSIUM 3.6 MEQ/L (3.5-5.1)
[2017-05-19] MEDS: HEPARIN-D5W INJ 250 ML IV SCH ×2 (05:46→21:09)
[2017-05-19] MEDS: AMANTADINE HCL SOLN 100 MG/10 ML UDC PO SCH ×2 (06:22→14:04)
--- NOTE | 2017-05-19 06:46 | HHI.CCPN ---
Subjective Remarks/Hospital Course This is a 42yF with unremarkable past medical history who presents to the [facility] emergency department with new-onset left-sided weakness and slurred speech. She is an employee of [employer] who had a witnessed onset of her symptoms at 12:45pm. In the [facility] ED she was immediately taken for non-contrasted head CT which was negative for acute hemorrhage. She was given iv tpa which was instituted 36 minutes after arrival, per my conversation with the lactation coordinator. She was then emergently transferred to [facility]. CT angiography demonstrated acute right m1 cut-off. She was taken by [facility] and arrived directly to the IR suite, where I met and evaluated the patient. Due to the acute nature of her illness and her dysarthria, a complete history is not obtainable. She does endorse right-sided headache, although denied any chest pain, shortness of breath. 04/27: Back from OR after right craniectomy for decompression s/p left MCA CVA. Heavily sedated. Some new history from a co-worker indicates that patient started taking oral contraceptive 2 months ago. 04/28: Continued problems with cerebral edema as expected. Push osmolality a little higher and restrict fluid. Tolerate pH mildly acidotic to avoid cerebral vascular constriction. 04/29: Osmolality in good range. ICP controlled. Hypothermia to 34 degrees. Raise to 35 slowly as long as ICP is acceptable. Unable to start tube feeds yet as gut motility will be poor at cooler temperature. 04/30: ICP control good. Osmolality acceptable. Temp to 35 degrees. 05/01: Raise temp to 36 degrees and hold. CXR with light basilar infiltrates, no leukocytosis. Heavily sedated for brain protection/ICP control. Persistent blood sugars 60s range - will start D5/NS at 30/hr. 05/02: vasopressor requirement uptrending. wbc uptrending as well. repeat head ct with persistent edema, although ICPs slightly improved. 05/03: slight improvement in vasopressors and lactate with ivf resuscitation. however, still persists on high doses of multiple vasopressors. ICPs stable. off versed. sputum growing chowdhury-sensitive e-coli. I performed critical care bedside echo this morning which demonstrated preserved biventricular function, no significant valvular lesions, ivc with 20% variability and measures at 1.6cm. by echo appears clinically euvolemic. 05/04: vasopressors significantly improved throughout the night. but remains on two vasopressors. this morning, cvp climbing. weaning off sedation. bolt removed. icp's controlled. still poor neurologic exam, despite weaning off sedation. (delayed note entry. seen and evaluated at 06:20am). 05/05: patient seen and evaluated at 06:15am. almost off vasopressors. however, renal function significantly worse. patient is non-oliguric, but failing to diurese fast enough for rising filling pressures. FIO2 up to 100% this morning. CXR with evidence of volume overload. bedside ultrasound of the lungs demonstrate trace pleural effusions with densely consolidated lung oquendo. echo with dilated ivc without respiratory variation, RVSP ~50 mmHg based on trace TR jet. preserved LV and RV function. neuro exam remains poor. 05/06: diuresed > 8L uop overnight. fio2 down to 60%. Cr stabilized. Nephrology consulted. neuro exam still poor. 05/07: continues to diurese, >7L/24h. fio2 still at 50%. Cr stable. neuro exam: starting to withdraw x 4. MRI today without evidence of new infarction on the left. 05/08: slowly improving neurologic exam. fio2 improved as well. continues to diurese, and almost at dry weight. wbc uptrending and low-grade fever. remains on broad spectrum abx. 05/09: Remains encephalopathic off sedation, orally intubated on mechanical ventilation. One unit PRBCs ordered this morning for hemoglobin 6.9. No melena or rectal bleeding per RN. 05/10: Remains encephalopathic off sedation. Withdraws all 4 extremities to pain. Remains orally intubated on mechanical ventilation. Tolerating tube feeds. 05/11: Started on propofol last evening as she began to hyperventilate and gets tachypneic while on mechanical ventilation. Currently sedated, orally intubated on mechanical ventilation. Awaiting tracheostomy and PEG tube placement. 05/12: Patient underwent tracheostomy and PEG tube placement on 05/11 which she tolerated well. Fentanyl was stopped last evening and propofol was stopped around midnight. Remains encephalopathic, on mechanical ventilation via tracheostomy. Hemoglobin dropped to 6.6, being transfused 2 units PRBCs ordered earlier. 05/13: Encephalopathic on mechanical ventilation via tracheostomy. On C Pap trial currently. Did tolerate TPs for about 6 hours yesterday. 05/14: Remains encephalopathic on mechanical ventilation via tracheostomy. On C Pap overnight with pressure support +20, PEEP +5. Respiratory rate 28-30. Low- grade fevers. Tolerating tube feeds. 05/15: Remains encephalopathic on mechanical ventilation via tracheostomy. Opening eyes. Tolerating tube feeds. On C Pap trials. 05/16: neuro exam stable. trialed t-piece for 20 minutes, then became tachypneic and in distress. tolerating tube feeds. hgb stable. heparin drip continues. u/e doppler's with bilateral occlusive DVTs. 05/17: repeat interval head CT without significant change. OOB to chair today. hgb stable on heparin drip. family updated at bedside. full family meeting planned for afternoon. I talked with Dr. Gomez: plan will be tentatively to transition heparin drip to therapeutic lovenox on /tue of this week, repeat interval head CT tuesday, and plan for LTAC early next week if all remains stable. 05/18: hgb slight drop from 8.5 --> 7.8 today. otherwise neuro stable. no new complaints and nothing per nursing. 05/19: hgb stable. recheck yesterday was also stable. neuro exam stable. has been on t-piece x 24h now. doing well. resting comfortably on my exam this morning. Objective Vital Signs Date Time Temp Pulse Resp B/P Pulse Ox O2 Delivery O2 Flow Rate FiO2 05/19/17 06:00 65 05/19/17 04:00 98.5 26 154/70 97 05/18/17 20:32 T-piece 6.00 50 Intake and Output 05/18/17 05/18/17 05/19/17 08:00 16:00 00:00 Intake Total 915 ml 1100 ml 782 ml Output Total 250 ml 1025 ml 275 ml Balance 665 ml 75 ml 507 ml Result Diagram: 05/19/17 0258 05/19/17 0258 Other Results Microbiology Date/Time Procedure Status Source Growth 05/16/17 13:38 Stool Occult Blood (MILO) - Final Complete Stool Stool HEMOCCULT NEGATIVE Imaging Last [address] 05/09/17 0800 Signed Impressions: Service Date/Time: Tuesday, May 09, 2017 08:46 - CONCLUSION: 1. Stable areas of acute intraparenchymal hemorrhage within the right temporal and parietal lobes with the largest area measuring 3 cm. Extensive cytotoxic edema is also noted throughout the right middle cerebral artery distribution and is stable. There is persistent herniation of the right temporal, parietal and frontal lobes through the right craniectomy defect which is stable. Nam Rivas MD Head CT 05/08/17 0000 Signed Impressions: Service Date/Time: Monday, May 08, 2017 13:20 - CONCLUSION: Evolving subacute right middle cerebral artery distribution infarct. 3.2 cm acute parenchymal hemorrhage has developed within the infarcted and herniated right temporal lobe. Minimal midline shift. Juancho Dolan MD Chest X-Ray 05/08/17 0000 Signed Impressions: Service Date/Time: Monday, May 08, 2017 11:52 - CONCLUSION: 1. New right subclavian central venous catheter with tip at the atriocaval junction. No pneumothorax. 2. Unchanged other lines and tubes, including a left internal jugular central venous catheter with tip in the right atrium. 3. Left greater than right basilar consolidation, both sides improved. Juancho Dolan MD Last 24 hours Impressions Chest X-Ray 05/05/17 0000 Signed Impressions: Service Date/Time: April 03:59 - CONCLUSION: Prominent bibasilar infiltrates. Tubes and catheters are all in good position Bertin White MD Objective Remarks gen: middle-aged female, lying in bed, encephalopathic heent: Positive pallor, no icterus. Tongue moist. Pupils 5 mm bilaterally reactive neck: Tracheostomy in place chest: On mechanical ventilation via tracheostomy. Good air entry bilaterally, decreased at bases, scattered rhonchi, no wheezing. cv: normal rate, regular rhythm. sinus by tele. abd: soft, nontender, nondistended. no guarding. extr: no peripheral edema. distal pulses palpable, well perfused. neuro: Remains encephalopathic, minimal eye opening occasionally, pupils are now 3mm, equal and reactive. withdraws x 4. Weak gag. occasionally tracks with eyes. A/P Assessment and Plan Assessment: 42yF with acute right M1 MCA CVA now s/p systemic TPA and attempted interventional mechanical thrombectomy. Her course is complicated by malignant cerebral edema requiring decompressive craniectomy and therapeutic hypothermia. She remains with cerebral edema, off pressors now. now with multiple venous thromboses, including intra-hepatic IVC, LEs, b/l UEs, requiring therapeutic anticoagulation. on heparin drip. plan for interval head CT in the AM. Highly complex patient with multiple medical comorbidities which require ongoing management, including hemorrhagic conversion of strokes, need for anticoagulation, DVTs, hypercoagulable state, s/p large MCA infarct, persistent chronic respiratory failure. Plan by Systems: Neuro: Acute right M1 MCA CVA s/p systemic TPA and endovascular thrombectomy Dysarthria Left-sided hemiparesis Left-sided facial droop Malignant Cerebral Edema s/p Decompressive Craniectomy Elevated ICP -- Continue neuro checks -- Off fentanyl since 05/11 evening. Propofol off since midnight 05/11. -- repeat EEG 05/04: generalized slowing. ?ictal focus over right hemisphere. -- repeat head CT 05/02, 05/04: stable edema, slightly enlarged left lateral ventricle, evolving right hemispheric cva. Head CT 05/08 and 05/09 with right temporoparietal 3cm intraparenchymal hemorrhage in herniated area. Neurosurgery following. -- Off hyperosmolar therapy. slowly normalize sodium. -- Folow sodium levels -- SBP goal 110 - 160. -- keppra for seizure ppx -- Started on aspirin 325 mg daily on 05/12 (cleared by Dr. Nathan) Respiratory: Acute hypoxic and Hypercarbic respiratory failure --S/p perc tracheostomy on 05/11. Daily C Pap/ T piece trials as tolerated, will attempt longer t-piece trials daily -- wean fio2 for goal spo2 > 90% -- vent bundle -- elevated HOB -- continue OOB to chair daily. daily SBTs and t-piece as tolerated. Cardiovascular Septic Shock- resolved Relative Adrenal Insufficiency Acute intravascular volume overload- resolved. -- goal sbp 110 - 160 -- off vasopressors. off hydrocortisone. Renal: Acute Kidney Injury- resolved. -- removed ribera 05/17 and straight cath q6h. -- Remains on free water via OGT. -- Off bumex drip/ Diamox since 05/08 -- Monitor and replete electrolytes, follow BUN/creatinine FEN/GI Acute protein calorie malnutrition- moderate Hypernatremia Lactic Acidosis- resolved. Anion-gap metabolic acidosis- resolved. Metabolic Alkalosis secondary to intravascular contraction- improved. -- TF, Jevity -- ICU electrolyte protocol -- Monitor and replete electrolytes. -- diamox 500mg iv q8h - stopped 05/08 -- Stopped free water on 05/14. Heme/ID: Anemia secondary to acute blood loss/ iron deficiency Sepsis/Leukocytosis E. Coli Pneumonia, likely secondary to aspiration at time of stroke Hypercoagulability Multiple Upper and Lower extremity DVTs -- Completed 10 days of Zosyn on 05/11. -- sputum culture 05/01, 05/09: e.coli, chowdhury sensitive -- urine, blood cultures 05/02 NGTD. -- daily cbc. Labs suggest iron deficiency. Initiated iron sucrose 200 mg IV daily 3 days on 05/11. 2 units PRBCs being transfused on 05/12 for hemoglobin 6.6. No overt evidence of GI blood loss. No evidence of bleeding from tracheostomy or PEG tube site. CT abdomen pelvis done on 05/12 with no evidence of retroperitoneal bleed. Starting oral iron/ B12, folic acid on 05/15. -- leukocytosis is concerning, CVL replaced 05/08, urine culture with Tej from 05/08, replaced Ribera and resent urine culture on 05/09 which is also growing tej. Started fluconazole 100 mg via OG tube daily on 05/09. Completed Zosyn day #10 on 05/11. Leukocytosis noted. Blood cultures 2 repeated on 05/12. Stool for C. difficile negative on 05/12. CT abdomen pelvis without contrast(05/12) in view of drop in hemoglobin and leukocytosis did not reveal any evidence of retroperitoneal or intraperitoneal bleed. No fluid collections noted. Check right upper quadrant ultrasound on 05/15 for borderline elevation of LFTs and fevers. ID following hgb stable. resume daily cbc. on heparin drip for anticoagulation. Anticoagulation plan: Transition to therapeutic lovenox /tuesday and if stable, interval head CT on Tuesday. plan for LTAC with therapeutic lovenox early next week, and then plan to eventually transition to Coumadin, once out of high-risk re-bleed window. very high risk patient for bleeding, but also high risk for clotting, as now has developed multiple left and right sided emboli. Endo: Hypoglycemia- improved. Adrenal Insufficiency -- Off d10w, glycemic control improved. -- frequent glucose checks. -- out of shock. decrease hydrocortisone to 50 mg iv daily on 05/12, d/c'd on (Random cortisol while in shock was 6) Prophy: -- SCDs, heparin drip --Pepcid via PEG for gi prophylaxis Lines: piv's ribera removed 05/17, I/O straight cath q6h. dispo: remain in the ICU. high risk for decompensation in this highly complex patient. Remi Freeman MD May 19, 2017 06:46
[2017-05-19] MEDS: FAMOTIDINE 20 MG TAB PEG SCH ×2 (09:14→21:04)
[2017-05-19] MEDS: ASPIRIN 325 MG TAB PO SCH (09:14)
[2017-05-19] MEDS: FOLIC ACID 1 MG TAB PEG SCH (09:14)
[2017-05-19] MEDS: VITAMIN B COMPLEX/VIT C TAB PEG SCH (09:14)
[2017-05-19] MEDS: FERROUS SULFATE 300 MG /5ML UDC PEG SCH (09:15)
[2017-05-19] MEDS: levETIRAcetam INJ 500 MG in SODIUM CHLORIDE 0.9% INJ 100 ML IV SCH ×2 (09:15→21:05)
[2017-05-19] MEDS: CHLORHEXIDINE 0.12% (ORAL KIT) 15 ML CUP MT SCH ×2 (09:16→20:00)
[2017-05-19] MEDS: NUTRISOURCE FIBER POWDER 1 PACK G-TUBE SCH ×2 (09:16→21:00)
[2017-05-19] MEDS: ARTIFICIAL TEARS OPTH OINT 3.5 APPLIC/3.5 GM TUBO EACH EYE SCH ×2 (09:16→21:00)
[2017-05-19] MEDS: cefTRIAXone INJ 2,000 MG in SODIUM CHLORIDE 0.9% INJ 100 ML IV SCH (17:52)
--- NOTE | 2017-05-19 18:07 | HHI.PR ---
Review/Management Diagnosis right MCA stroke, s/p iv tpa and thrombectomy of right M1 thrombus. Plan I discussed case with Dr Freeman. I think it is reasonable to change anticoagulation to lovenox later this week and repeat CT brain next Tuesday and if stable consider transfer to rehab and transition to coumadin once at rehab. Diagnosis/Plan: Subjective Subjective Comments No acute events reported Active Medications Current Medications Medications (Trade) Dose Ordered Sig/Elida Route Start Time Stop Time Status Last Admin (D50w (Vial) Inj) 25 ml UNSCH PRN IV PUSH 04/26/17 14:15 05/11/17 15:45 (Zofran Inj) 4 mg Q6H PRN IV 04/26/17 14:15 Miscellaneous Information 1 Q361D XX 04/26/17 14:15 (Chlorhexidine 2% Cloth) 3 pack Taper DAILY@04 TOP 04/27/17 04:00 04/23/18 03:59 05/19/17 03:52 (Chlorhexidine 2% Cloth) 3 pack UNSCH PRN TOP 04/26/17 14:15 (Trandate Inj) 20 mg Q15M PRN IV PUSH 04/26/17 15:30 05/17/17 01:52 Hydralazine HCl 10 mg 10 mg Q30M PRN IV PUSH 04/26/17 15:30 05/17/17 01:06 (Keppra Inj/NS Inj) 105 ml @ 400 mls/hr Q12H IV 04/27/17 21:00 05/19/17 09:15 (Dulcolax Supp) 10 mg DAILY PRN RECTAL 04/27/17 10:30 05/01/17 08:29 Calcium Gluconate 1 gm 1 gm UNSCH PRN IV 04/27/17 10:30 04/30/17 19:04 Potassium Chloride 100 ml @ 50 mls/hr UNSCH PRN IV 04/27/17 10:30 05/18/17 04:55 (Magnesium Sulfate Inj/NS Inj) 108 ml @ 108 mls/hr UNSCH PRN IV 04/27/17 10:30 05/01/17 17:56 (Peridex 0.12% Liq) 15 ml BID@08,20 MT 04/27/17 20:00 05/19/17 09:16 Artificial Tears APPLY UNDER BOTH EYELIDS BID EACH EYE 04/28/17 21:00 05/19/17 09:16 Miscellaneous Information ml @ 0 mls/hr UNSCH IV 04/28/17 11:15 (NS Flush) 2 ml UNSCH PRN IV FLUSH 04/28/17 11:15 05/17/17 08:47 (NS Flush) 2 ml UNSCH PRN IV FLUSH 04/28/17 11:15 (Lacrilube Opht Oint) 1 applic Q4H PRN EACH EYE 04/28/17 11:15 05/17/17 09:01 (Ofirmev Inj) 1,000 mg Q6H PRN IV 05/02/17 09:45 05/16/17 19:01 (Symmetrel Liq) 200 mg BID@07,12 PO 05/07/17 07:00 05/19/17 14:04 (Aspirin) 325 mg DAILY PO 05/11/17 09:00 05/19/17 09:14 (Pepcid) 20 mg BID PEG 05/14/17 21:00 05/19/17 09:14 (Ferrous Sulfate Liq) 300 mg DAILY PEG 05/16/17 09:00 05/19/17 09:15 (Folate) 1 mg DAILY PEG 05/16/17 09:00 05/19/17 09:14 Vitamin B Complex/ Vitamin C 1 tab 1 tab DAILY PEG 05/16/17 09:00 05/19/17 09:14 Ceftriaxone Sodium 2000 mg/ Sodium Chloride 100 ml @ 200 mls/hr Q24H IV 05/15/17 18:00 05/19/17 23:55 05/19/17 17:52 (Heparin-D5W Inj) 250 ml @ 0 mls/hr TITRATE IV 05/15/17 20:30 05/19/17 05:46 (Inderal) 10 mg Q6H PO 05/17/17 10:00 05/19/17 17:51 (Nutrisource Fiber Powder) 2 pack BID G-TUBE 05/17/17 21:00 05/19/17 09:16 Allergies Allergies Coded Allergies Shellfish (Verified Allergy, Unknown, 04/26/17) Exam I&O / VS 05/18/17 05/18/17 05/19/17 15:00 23:00 07:00 Intake Total 1100 ml 782 ml 526 ml Output Total 1025 ml 275 ml Balance 75 ml 507 ml 526 ml IV Total 442 ml 340 ml 119 ml Tube Feeding 538 ml 322 ml 367 ml Other 120 ml 120 ml 40 ml Output Urine Total 225 ml 275 ml Stool Total 800 ml # Voids 1 # Bowel Movements 3 3 Vital Signs Date Time Temp Pulse Resp B/P Pulse Ox O2 Delivery O2 Flow Rate FiO2 05/19/17 16:00 98.4 64 24 132/92 98 05/19/17 16:00 73 05/19/17 14:00 63 05/19/17 12:00 99.2 56 16 111/67 97 05/19/17 12:00 85 05/19/17 10:00 70 05/19/17 08:00 98.7 96 19 114/79 99 05/19/17 08:00 70 05/19/17 06:00 65 05/19/17 04:00 98.5 83 26 154/70 97 05/19/17 04:00 83 05/19/17 02:00 68 05/19/17 00:00 98.8 69 28 138/72 98 05/19/17 00:00 69 05/18/17 22:00 71 05/18/17 20:32 97 T-piece 6.00 50 05/18/17 20:00 99.1 80 30 137/74 99 05/18/17 20:00 80 Exam Comments nonresponsive pupils 3 mm right nonreactive, 2 mm left and reactive, disconjugate gaze improved today. Has eye /head deviation to right does withdraw BLE to tactile stim and also with more movement of BUE Objective Micro and Labs Laboratory Tests Test 05/19/17 02:58 White Blood Count 10.0 Red Blood Count 2.71 Hemoglobin 8.3 Hematocrit 25.5 Mean Corpuscular Volume 94.0 Mean Corpuscular Hemoglobin 30.7 Mean Corpuscular Hemoglobin 32.7 Concent Red Cell Distribution Width 17.4 Platelet Count 505 Mean Platelet Volume 9.9 Activated Partial 59.5 Thromboplast Time Sodium Level 143 Potassium Level 3.6 Chloride Level 112 Carbon Dioxide Level 20.8 Anion Gap 10 Blood Urea Nitrogen 19 Creatinine 0.70 Estimat Glomerular Filtration 91 Rate Random Glucose 120 Calcium Level 8.5 Date/Time Procedure Status Source Growth 05/16/17 13:38 Stool Occult Blood (MILO) - Final Complete Stool Stool HEMOCCULT NEGATIVE Santana Gomez PhD May 19, 2017 18:07
[2017-05-19] MEDS: ARTIFICIAL TEARS OPTH OINT 3.5 APPLIC/3.5 GM TUBO EACH EYE PRN (21:03)
[2017-05-20] VITALS (13 sets, daily range): BP systolic 133–156; BP diastolic 69–92; PULSE 43–87; RESP 12–26; TEMP 98.4–99; O2SAT 95–100
[2017-05-20] MEDS: CHLORHEXIDINE GLUCONATE 2 % 1 PACK (2 CLOTHS) TOP SCH (04:00)
[2017-05-20] MEDS: PROPRANOLOL HCL 10 MG TAB PO SCH ×4 (05:18→22:00)
[2017-05-20] MEDS: AMANTADINE HCL SOLN 100 MG/10 ML UDC PO SCH ×2 (05:19→12:19)
[2017-05-20 06:26] LABS: MEAN CELL VOLUME 93.8 FL (80.0-100.0); MEAN CORPUSCULAR HEMOGLOBIN 31.3 PG (27.0-34.0); MEAN CORPUSCULAR HGB CONC 33.4 % (32.0-36.0); PLATELET COUNT 271 TH/MM3 (150-450); RED BLOOD COUNT 2.35 MIL/MM3 (4.00-5.30); RED CELL DISTRIBUTION WIDTH 17.5 % (11.6-17.2); REVIEW FLAG FINAL; WHITE BLOOD COUNT 8.2 TH/MM3 (4.0-11.0)
[2017-05-20 06:48] LABS: BICARBONATE 24.4 MEQ/L (21.0-32.0)
[2017-05-20 06:49] LABS: POTASSIUM 3.7 MEQ/L (3.5-5.1)
[2017-05-20] MEDS: levETIRAcetam INJ 500 MG in SODIUM CHLORIDE 0.9% INJ 100 ML IV SCH ×2 (08:05→20:41)
[2017-05-20] MEDS: ASPIRIN 325 MG TAB PO SCH (08:07)
[2017-05-20] MEDS: FOLIC ACID 1 MG TAB PEG SCH (08:07)
[2017-05-20] MEDS: FERROUS SULFATE 300 MG /5ML UDC PEG SCH (08:07)
[2017-05-20] MEDS: CHLORHEXIDINE 0.12% (ORAL KIT) 15 ML CUP MT SCH ×2 (08:07→20:00)
[2017-05-20] MEDS: FAMOTIDINE 20 MG TAB PEG SCH ×2 (08:07→20:41)
[2017-05-20] MEDS: VITAMIN B COMPLEX/VIT C TAB PEG SCH (08:07)
[2017-05-20] MEDS: ARTIFICIAL TEARS OPTH OINT 3.5 APPLIC/3.5 GM TUBO EACH EYE SCH ×2 (08:08→20:42)
[2017-05-20] MEDS: NUTRISOURCE FIBER POWDER 1 PACK G-TUBE SCH ×2 (08:08→20:42)
--- NOTE | 2017-05-20 08:41 | HHI.PR ---
Review/Management Diagnosis right MCA stroke, s/p iv tpa and thrombectomy of right M1 thrombus. Plan I discussed case with Dr Freeman. I think MATY would be indicated to be sure she does not have a PFO. I agree with changing to lovenox in preparation for transfer to rehab and then transition to coumadin once at rehab. Diagnosis/Plan: Subjective Subjective Comments No acute events reported Not following commands according to nursing staff Active Medications Current Medications Medications (Trade) Dose Ordered Sig/Elida Route Start Time Stop Time Status Last Admin (D50w (Vial) Inj) 25 ml UNSCH PRN IV PUSH 04/26/17 14:15 05/11/17 15:45 (Zofran Inj) 4 mg Q6H PRN IV 04/26/17 14:15 Miscellaneous Information 1 Q361D XX 04/26/17 14:15 (Chlorhexidine 2% Cloth) 3 pack Taper DAILY@04 TOP 04/27/17 04:00 04/23/18 03:59 05/20/17 04:00 (Chlorhexidine 2% Cloth) 3 pack UNSCH PRN TOP 04/26/17 14:15 (Trandate Inj) 20 mg Q15M PRN IV PUSH 04/26/17 15:30 05/17/17 01:52 Hydralazine HCl 10 mg 10 mg Q30M PRN IV PUSH 04/26/17 15:30 05/17/17 01:06 (Keppra Inj/NS Inj) 105 ml @ 400 mls/hr Q12H IV 04/27/17 21:00 05/20/17 08:05 (Dulcolax Supp) 10 mg DAILY PRN RECTAL 04/27/17 10:30 05/01/17 08:29 Calcium Gluconate 1 gm 1 gm UNSCH PRN IV 04/27/17 10:30 04/30/17 19:04 Potassium Chloride 100 ml @ 50 mls/hr UNSCH PRN IV 04/27/17 10:30 05/18/17 04:55 (Magnesium Sulfate Inj/NS Inj) 108 ml @ 108 mls/hr UNSCH PRN IV 04/27/17 10:30 05/01/17 17:56 (Peridex 0.12% Liq) 15 ml BID@08,20 MT 04/27/17 20:00 05/20/17 08:07 Artificial Tears APPLY UNDER BOTH EYELIDS BID EACH EYE 04/28/17 21:00 05/20/17 08:08 Miscellaneous Information ml @ 0 mls/hr UNSCH IV 04/28/17 11:15 (NS Flush) 2 ml UNSCH PRN IV FLUSH 04/28/17 11:15 05/17/17 08:47 (NS Flush) 2 ml UNSCH PRN IV FLUSH 04/28/17 11:15 (Lacrilube Opht Oint) 1 applic Q4H PRN EACH EYE 04/28/17 11:15 05/19/17 21:03 (Ofirmev Inj) 1,000 mg Q6H PRN IV 05/02/17 09:45 05/16/17 19:01 (Symmetrel Liq) 200 mg BID@07,12 PO 05/07/17 07:00 05/20/17 05:19 (Aspirin) 325 mg DAILY PO 05/11/17 09:00 05/20/17 08:07 (Pepcid) 20 mg BID PEG 05/14/17 21:00 05/20/17 08:07 (Ferrous Sulfate Liq) 300 mg DAILY PEG 05/16/17 09:00 05/20/17 08:07 (Folate) 1 mg DAILY PEG 05/16/17 09:00 05/20/17 08:07 Vitamin B Complex/ Vitamin C 1 tab 1 tab DAILY PEG 05/16/17 09:00 05/20/17 08:07 (Heparin-D5W Inj) 250 ml @ 0 mls/hr TITRATE IV 05/15/17 20:30 05/19/17 21:09 (Inderal) 10 mg Q6H PO 05/17/17 10:00 05/20/17 05:18 (Nutrisource Fiber Powder) 2 pack BID G-TUBE 05/17/17 21:00 05/20/17 08:08 Allergies Allergies Coded Allergies Shellfish (Verified Allergy, Unknown, 04/26/17) Exam I&O / VS 05/19/17 05/19/17 05/20/17 15:00 23:00 07:00 Intake Total 796 ml 793 ml 722 ml Output Total 150 ml 500 ml 500 ml Balance 646 ml 293 ml 222 ml Intake Oral 0 ml IV Total 261 ml 310 ml 210 ml Tube Feeding 475 ml 423 ml 452 ml Other 60 ml 60 ml 60 ml Output Urine Total 150 ml 500 ml 500 ml # Voids 1 # Bowel Movements 2 5 3 Vital Signs Date Time Temp Pulse Resp B/P Pulse Ox O2 Delivery O2 Flow Rate FiO2 05/20/17 06:00 67 05/20/17 04:00 98.8 67 21 150/75 96 05/20/17 04:00 67 05/20/17 02:00 87 05/20/17 00:00 68 05/20/17 00:00 98.7 75 26 156/89 95 05/19/17 22:00 66 05/19/17 20:00 98.7 58 20 142/84 95 05/19/17 20:00 67 05/19/17 20:00 68 05/19/17 19:25 95 T-piece 35 05/19/17 18:00 61 05/19/17 16:00 98.4 64 24 132/92 98 05/19/17 16:00 73 05/19/17 14:00 63 05/19/17 12:00 99.2 56 16 111/67 97 05/19/17 12:00 85 05/19/17 10:00 70 Exam Comments opens eyes to voice, but does not follow commands pupils 3 mm right nonreactive, 2 mm left and reactive, disconjugate gaze improved today. Has eye /head deviation to right withdraws slightly on right , not left. Increase tone left with flexor posturing LUE Objective Micro and Labs Laboratory Tests Test 05/20/17 05:24 White Blood Count 8.2 Red Blood Count 2.35 Hemoglobin 7.4 Hematocrit 22.0 Mean Corpuscular Volume 93.8 Mean Corpuscular Hemoglobin 31.3 Mean Corpuscular Hemoglobin 33.4 Concent Red Cell Distribution Width 17.5 Platelet Count 271 Mean Platelet Volume 10.0 Sodium Level 143 Potassium Level 3.7 Chloride Level 110 Carbon Dioxide Level 24.4 Anion Gap 9 Blood Urea Nitrogen 14 Creatinine 0.69 Estimat Glomerular Filtration 92 Rate Random Glucose 108 Calcium Level 8.3 Date/Time Procedure Status Source Growth 05/16/17 13:38 Stool Occult Blood (MILO) - Final Complete Stool Stool HEMOCCULT NEGATIVE Santana Gomez PhD May 20, 2017 08:41
--- NOTE | 2017-05-20 08:45 | HHI.CCPN ---
Subjective Remarks/Hospital Course This is a 42yF with unremarkable past medical history who presents to the [facility] emergency department with new-onset left-sided weakness and slurred speech. She is an employee of [employer] who had a witnessed onset of her symptoms at 12:45pm. In the [facility] ED she was immediately taken for non-contrasted head CT which was negative for acute hemorrhage. She was given iv tpa which was instituted 36 minutes after arrival, per my conversation with the registration coordinator. She was then emergently transferred to [facility]. CT angiography demonstrated acute right m1 cut-off. She was taken by [facility] and arrived directly to the IR suite, where I met and evaluated the patient. Due to the acute nature of her illness and her dysarthria, a complete history is not obtainable. She does endorse right-sided headache, although denied any chest pain, shortness of breath. 04/27: Back from OR after right craniectomy for decompression s/p left MCA CVA. Heavily sedated. Some new history from a co-worker indicates that patient started taking oral contraceptive 2 months ago. 04/28: Continued problems with cerebral edema as expected. Push osmolality a little higher and restrict fluid. Tolerate pH mildly acidotic to avoid cerebral vascular constriction. 04/29: Osmolality in good range. ICP controlled. Hypothermia to 34 degrees. Raise to 35 slowly as long as ICP is acceptable. Unable to start tube feeds yet as gut motility will be poor at cooler temperature. 04/30: ICP control good. Osmolality acceptable. Temp to 35 degrees. 05/01: Raise temp to 36 degrees and hold. CXR with light basilar infiltrates, no leukocytosis. Heavily sedated for brain protection/ICP control. Persistent blood sugars 60s range - will start D5/NS at 30/hr. 05/02: vasopressor requirement uptrending. wbc uptrending as well. repeat head ct with persistent edema, although ICPs slightly improved. 05/03: slight improvement in vasopressors and lactate with ivf resuscitation. however, still persists on high doses of multiple vasopressors. ICPs stable. off versed. sputum growing chowdhury-sensitive e-coli. I performed critical care bedside echo this morning which demonstrated preserved biventricular function, no significant valvular lesions, ivc with 20% variability and measures at 1.6cm. by echo appears clinically euvolemic. 05/04: vasopressors significantly improved throughout the night. but remains on two vasopressors. this morning, cvp climbing. weaning off sedation. bolt removed. icp's controlled. still poor neurologic exam, despite weaning off sedation. (delayed note entry. seen and evaluated at 06:20am). 05/05: patient seen and evaluated at 06:15am. almost off vasopressors. however, renal function significantly worse. patient is non-oliguric, but failing to diurese fast enough for rising filling pressures. FIO2 up to 100% this morning. CXR with evidence of volume overload. bedside ultrasound of the lungs demonstrate trace pleural effusions with densely consolidated lung oquendo. echo with dilated ivc without respiratory variation, RVSP ~50 mmHg based on trace TR jet. preserved LV and RV function. neuro exam remains poor. 05/06: diuresed > 8L uop overnight. fio2 down to 60%. Cr stabilized. Nephrology consulted. neuro exam still poor. 05/07: continues to diurese, >7L/24h. fio2 still at 50%. Cr stable. neuro exam: starting to withdraw x 4. MRI today without evidence of new infarction on the left. 05/08: slowly improving neurologic exam. fio2 improved as well. continues to diurese, and almost at dry weight. wbc uptrending and low-grade fever. remains on broad spectrum abx. 05/09: Remains encephalopathic off sedation, orally intubated on mechanical ventilation. One unit PRBCs ordered this morning for hemoglobin 6.9. No melena or rectal bleeding per RN. 05/10: Remains encephalopathic off sedation. Withdraws all 4 extremities to pain. Remains orally intubated on mechanical ventilation. Tolerating tube feeds. 05/11: Started on propofol last evening as she began to hyperventilate and gets tachypneic while on mechanical ventilation. Currently sedated, orally intubated on mechanical ventilation. Awaiting tracheostomy and PEG tube placement. 05/12: Patient underwent tracheostomy and PEG tube placement on 05/11 which she tolerated well. Fentanyl was stopped last evening and propofol was stopped around midnight. Remains encephalopathic, on mechanical ventilation via tracheostomy. Hemoglobin dropped to 6.6, being transfused 2 units PRBCs ordered earlier. 05/13: Encephalopathic on mechanical ventilation via tracheostomy. On C Pap trial currently. Did tolerate TPs for about 6 hours yesterday. 05/14: Remains encephalopathic on mechanical ventilation via tracheostomy. On C Pap overnight with pressure support +20, PEEP +5. Respiratory rate 28-30. Low- grade fevers. Tolerating tube feeds. 05/15: Remains encephalopathic on mechanical ventilation via tracheostomy. Opening eyes. Tolerating tube feeds. On C Pap trials. 05/16: neuro exam stable. trialed t-piece for 20 minutes, then became tachypneic and in distress. tolerating tube feeds. hgb stable. heparin drip continues. u/e doppler's with bilateral occlusive DVTs. 05/17: repeat interval head CT without significant change. OOB to chair today. hgb stable on heparin drip. family updated at bedside. full family meeting planned for . I talked with Dr. Gomez: plan will be tentatively to transition heparin drip to therapeutic lovenox on /tue of this week, repeat interval head CT tuesday, and plan for LTAC early next week if all remains stable. 05/18: hgb slight drop from 8.5 --> 7.8 today. otherwise neuro stable. no new complaints and nothing per nursing. 05/19: hgb stable. recheck yesterday was also stable. neuro exam stable. has been on t-piece x 24h now. doing well. resting comfortably on my exam this morning. 05/20: hgb dropped to 7.4, but no signs of active bleeding. neuro exam stable. per Dr. Gomez, he would prefer a formal MATY to rule out PFO. will talk with family today and plan for this today if possible. plan to transition to therapeutic lovenox today (will plan after MATY). Objective Vital Signs Date Time Temp Pulse Resp B/P Pulse Ox O2 Delivery O2 Flow Rate FiO2 05/20/17 06:00 67 05/20/17 04:00 98.8 21 150/75 96 05/19/17 19:25 T-piece 35 05/18/17 20:32 6.00 Intake and Output 05/19/17 05/19/17 05/20/17 08:00 16:00 00:00 Intake Total 526 ml 796 ml 793 ml Output Total 150 ml 500 ml Balance 526 ml 646 ml 293 ml Result Diagram: 6/23/17 0524 6/23/17 0524 Imaging Last [address] 05/09/17 0800 Signed Impressions: Service Date/Time: Tuesday, May 09, 2017 08:46 - CONCLUSION: 1. Stable areas of acute intraparenchymal hemorrhage within the right temporal and parietal lobes with the largest area measuring 3 cm. Extensive cytotoxic edema is also noted throughout the right middle cerebral artery distribution and is stable. There is persistent herniation of the right temporal, parietal and frontal lobes through the right craniectomy defect which is stable. Nam Rivas MD Head CT 05/08/17 0000 Signed Impressions: Service Date/Time: Monday, May 08, 2017 13:20 - CONCLUSION: Evolving subacute right middle cerebral artery distribution infarct. 3.2 cm acute parenchymal hemorrhage has developed within the infarcted and herniated right temporal lobe. Minimal midline shift. Juancho Dolan MD Chest X-Ray 05/08/17 0000 Signed Impressions: Service Date/Time: Monday, May 08, 2017 11:52 - CONCLUSION: 1. New right subclavian central venous catheter with tip at the atriocaval junction. No pneumothorax. 2. Unchanged other lines and tubes, including a left internal jugular central venous catheter with tip in the right atrium. 3. Left greater than right basilar consolidation, both sides improved. Juancho Dolan MD Last 24 hours Impressions Chest X-Ray 05/05/17 0000 Signed Impressions: Service Date/Time: April 03:59 - CONCLUSION: Prominent bibasilar infiltrates. Tubes and catheters are all in good position Bertin White MD Objective Remarks gen: middle-aged female, lying in bed, encephalopathic heent: Positive pallor, no icterus. Tongue moist. Pupils 5 mm bilaterally reactive neck: Tracheostomy in place chest: On t-piece currently. unlabored. cv: normal rate, regular rhythm. sinus by tele. abd: soft, nontender, nondistended. no guarding. extr: no peripheral edema. distal pulses palpable, well perfused. neuro: Remains encephalopathic, minimal eye opening occasionally, pupils are now 3mm, equal and reactive. withdraws x 4. Weak gag. occasionally tracks with eyes. A/P Assessment and Plan Assessment: 42yF with acute right M1 MCA CVA now s/p systemic TPA and attempted interventional mechanical thrombectomy. Her course is complicated by malignant cerebral edema requiring decompressive craniectomy and therapeutic hypothermia. She remains with cerebral edema, off pressors now. now with multiple venous thromboses, including intra-hepatic IVC, LEs, b/l UEs, requiring therapeutic anticoagulation. plan to transition to therapeutic lovenox today. per Dr. Gomez , would like MATY to completely r/o PFO. will talk with family and attempt to obtain today. Highly complex patient with multiple medical comorbidities which require ongoing management, including hemorrhagic conversion of strokes, need for anticoagulation, DVTs, hypercoagulable state, s/p large MCA infarct. Plan by Systems: Neuro: Acute right M1 MCA CVA s/p systemic TPA and endovascular thrombectomy Dysarthria Left-sided hemiparesis Left-sided facial droop Malignant Cerebral Edema s/p Decompressive Craniectomy Elevated ICP -- Continue neuro checks -- Off fentanyl since 05/11 evening. Propofol off since midnight 05/11. -- repeat EEG 05/04: generalized slowing. ?ictal focus over right hemisphere. -- repeat head CT 05/02, 05/04: stable edema, slightly enlarged left lateral ventricle, evolving right hemispheric cva. Head CT 05/08 and 05/09 with right temporoparietal 3cm intraparenchymal hemorrhage in herniated area. Neurosurgery following. -- SBP goal 110 - 160. -- keppra for seizure ppx -- Started on aspirin 325 mg daily on 05/12 (cleared by Dr. Nathan) Respiratory: Acute hypoxic and Hypercarbic respiratory failure --t-piece as tolerated. -- wean fio2 for goal spo2 > 90% -- vent bundle -- elevated HOB -- continue OOB to chair daily. daily SBTs and t-piece as tolerated. Cardiovascular Septic Shock- resolved Relative Adrenal Insufficiency- resolved. Acute intravascular volume overload- resolved. -- goal sbp 110 - 160 -- off vasopressors. off hydrocortisone. Renal: Acute Kidney Injury- resolved. -- removed ribera 05/17 and straight cath q6h. -- Remains on free water via OGT. -- Off bumex drip/ Diamox since 05/08 -- Monitor and replete electrolytes, follow BUN/creatinine FEN/GI Acute protein calorie malnutrition- moderate, ongoing. Hypernatremia Lactic Acidosis- resolved. Anion-gap metabolic acidosis- resolved. Metabolic Alkalosis secondary to intravascular contraction- improved. -- TF, Jevity -- ICU electrolyte protocol -- Monitor and replete electrolytes. Heme/ID: Anemia secondary to acute blood loss/ iron deficiency Sepsis/Leukocytosis E. Coli Pneumonia, likely secondary to aspiration at time of stroke Hypercoagulability Multiple Upper and Lower extremity DVTs -- Completed 10 days of Zosyn on 05/11. -- sputum culture 05/01, 05/09: e.coli, chowdhury sensitive -- urine, blood cultures 05/02 NGTD. -- daily cbc. Labs suggest iron deficiency. Initiated iron sucrose 200 mg IV daily 3 days on 05/11. 2 units PRBCs being transfused on 05/12 for hemoglobin 6.6. No overt evidence of GI blood loss. No evidence of bleeding from tracheostomy or PEG tube site. CT abdomen pelvis done on 05/12 with no evidence of retroperitoneal bleed. Starting oral iron/ B12, folic acid on 05/15. -- leukocytosis is concerning, CVL replaced 05/08, urine culture with Tej from 05/08, replaced Ribera and resent urine culture on 05/09 which is also growing tej. Started fluconazole 100 mg via OG tube daily on 05/09. Completed Zosyn day #10 on 05/11. Leukocytosis noted. Blood cultures 2 repeated on 05/12. Stool for C. difficile negative on 05/12. ID following continue daily cbc. on heparin drip for anticoagulation. will stop this and start therapeutic lovenox 1mg/kg SQ BID (73 kg, plan for 70 mg SQ BID.) will plan to start after MATY. will hold heparin drip now in anticipation of MATY. Anticoagulation plan: Transition to therapeutic lovenox 05/20 and if stable, interval head CT on Tuesday. plan for LTAC with therapeutic lovenox early next week, and then plan to eventually transition to Coumadin, once out of high-risk re-bleed window. very high risk patient for bleeding, but also high risk for clotting, as now has developed multiple left and right sided emboli. Endo: Hypoglycemia- improved. Adrenal Insufficiency- resolved. -- Off d10w, glycemic control improved. -- frequent glucose checks. -- out of shock. decrease hydrocortisone to 50 mg iv daily on 05/12, d/c'd on (Random cortisol while in shock was 6) Prophy: -- SCDs, heparin drip transitioning to lovenox today. --Pepcid via PEG for gi prophylaxis Lines: piv's ribera removed 05/17, I/O straight cath q6h. dispo: remain in the ICU. high risk for decompensation in this highly complex patient. Remi Freeman MD May 20, 2017 08:45
[2017-05-20 11:13] LABS: APTT (PATIENT) 33.3 SEC (24.3-30.1)
[2017-05-20] MEDS ORDERED: MIDAZOLAM HCL 5 MG/ML VIAL (1 ML) ONE (11:58)
[2017-05-20] MEDS ORDERED: MIDAZOLAM HCL 5 MG/ML VIAL (1 ML) IV PUSH ONE (12:30)
[2017-05-20] MEDS ORDERED: PROPOFOL 1000 MG/100 ML INJ 100 ML ONE (14:06)
--- NOTE | 2017-05-20 19:15 | PD.PROCEDR ---
Procedure Note Procedure Procedure: Transesophageal Echocardiography Diagnosis: Acute stroke Indications: Acute stroke with venous thromboemboli. Transthoracic echocardiogram has been negative for intra-atrial shunt. Need for thorough evaluation of the intra-atrial septum. Consent: Written consent was obtained Anesthesia: Versed 5 mg IV, propofol 30 mg IV Description of the Procedure: The patient was sedated and remained spontaneously breathing through tracheostomy. The patient was placed on 100% FIO2. The echo probe was inserted easily and without resistance. At the conclusion of the procedure, the echo probe was removed. Please see detailed echocardiogram report for formal findings. Preliminary Findings (not confirmed): 1. Normal Biventricular size and Function 2. LVEF > 55% 3. Trace mitral regurgitation 4. No pericardial effusion 5. No evidence of thrombus in the left atrial appendage 6. There is evidence of [id number] intra-atrial shunting by color flow doppler. Bubble study positive for [id number] shunting with coughing. The patient tolerated the procedure well with no hemodynamic instability or hypoxia. There were no immediate complications noted. There was minimal EBL. Please see formal dictated report by Dr. Fish Mccall for additional details. I personally performed the procedure. Remi Freeman MD May 20, 2017 19:15
[2017-05-20] MEDS: ENOXAPARIN SODIUM 80 MG/0.8 ML SYRINGE SQ SCH (20:41)
[2017-05-21] VITALS (13 sets, daily range): BP systolic 131–163; BP diastolic 75–87; PULSE 62–100; RESP 18–26; TEMP 97.6–98.8; O2SAT 95–100
[2017-05-21] MEDS: RESP: ALBUTEROL 2.5 MG/IPRATROPIUM 0.5 MG NEB (PRN) INH (00:09)
[2017-05-21] MEDS: PROPRANOLOL HCL 10 MG TAB PO SCH ×4 (03:24→20:13)
[2017-05-21] MEDS: CHLORHEXIDINE GLUCONATE 2 % 1 PACK (2 CLOTHS) TOP SCH (03:24)
[2017-05-21 04:37] LABS: HEMATOCRIT 24.5 % (35.0-46.0); MEAN CELL VOLUME 92.8 FL (80.0-100.0); MEAN CORPUSCULAR HEMOGLOBIN 31.8 PG (27.0-34.0); MEAN CORPUSCULAR HGB CONC 34.3 % (32.0-36.0); PLATELET COUNT 478 TH/MM3 (150-450); RED BLOOD COUNT 2.64 MIL/MM3 (4.00-5.30); RED CELL DISTRIBUTION WIDTH 17.2 % (11.6-17.2); REVIEW FLAG FINAL; WHITE BLOOD COUNT 8.7 TH/MM3 (4.0-11.0)
[2017-05-21 04:55] LABS: BICARBONATE 26.6 MEQ/L (21.0-32.0); POTASSIUM 3.4 MEQ/L (3.5-5.1)
[2017-05-21] MEDS: AMANTADINE HCL SOLN 100 MG/10 ML UDC PO SCH ×2 (06:16→12:03)
--- NOTE | 2017-05-21 06:59 | HHI.CCPN ---
Subjective Remarks/Hospital Course This is a 42yF with unremarkable past medical history who presents to the [facility] emergency department with new-onset left-sided weakness and slurred speech. She is an employee of [employer] who had a witnessed onset of her symptoms at 12:45pm. In the [facility] ED she was immediately taken for non-contrasted head CT which was negative for acute hemorrhage. She was given iv tpa which was instituted 36 minutes after arrival, per my conversation with the audio visual collections coordinator. She was then emergently transferred to [facility]. CT angiography demonstrated acute right m1 cut-off. She was taken by [facility] and arrived directly to the IR suite, where I met and evaluated the patient. Due to the acute nature of her illness and her dysarthria, a complete history is not obtainable. She does endorse right-sided headache, although denied any chest pain, shortness of breath. 04/27: Back from OR after right craniectomy for decompression s/p left MCA CVA. Heavily sedated. Some new history from a co-worker indicates that patient started taking oral contraceptive 2 months ago. 04/28: Continued problems with cerebral edema as expected. Push osmolality a little higher and restrict fluid. Tolerate pH mildly acidotic to avoid cerebral vascular constriction. 04/29: Osmolality in good range. ICP controlled. Hypothermia to 34 degrees. Raise to 35 slowly as long as ICP is acceptable. Unable to start tube feeds yet as gut motility will be poor at cooler temperature. 04/30: ICP control good. Osmolality acceptable. Temp to 35 degrees. 05/01: Raise temp to 36 degrees and hold. CXR with light basilar infiltrates, no leukocytosis. Heavily sedated for brain protection/ICP control. Persistent blood sugars 60s range - will start D5/NS at 30/hr. 05/02: vasopressor requirement uptrending. wbc uptrending as well. repeat head ct with persistent edema, although ICPs slightly improved. 05/03: slight improvement in vasopressors and lactate with ivf resuscitation. however, still persists on high doses of multiple vasopressors. ICPs stable. off versed. sputum growing chowdhury-sensitive e-coli. I performed critical care bedside echo this morning which demonstrated preserved biventricular function, no significant valvular lesions, ivc with 20% variability and measures at 1.6cm. by echo appears clinically euvolemic. 05/04: vasopressors significantly improved throughout the night. but remains on two vasopressors. this morning, cvp climbing. weaning off sedation. bolt removed. icp's controlled. still poor neurologic exam, despite weaning off sedation. (delayed note entry. seen and evaluated at 06:20am). 05/05: patient seen and evaluated at 06:15am. almost off vasopressors. however, renal function significantly worse. patient is non-oliguric, but failing to diurese fast enough for rising filling pressures. FIO2 up to 100% this morning. CXR with evidence of volume overload. bedside ultrasound of the lungs demonstrate trace pleural effusions with densely consolidated lung oquendo. echo with dilated ivc without respiratory variation, RVSP ~50 mmHg based on trace TR jet. preserved LV and RV function. neuro exam remains poor. 05/06: diuresed > 8L uop overnight. fio2 down to 60%. Cr stabilized. Nephrology consulted. neuro exam still poor. 05/07: continues to diurese, >7L/24h. fio2 still at 50%. Cr stable. neuro exam: starting to withdraw x 4. MRI today without evidence of new infarction on the left. 05/08: slowly improving neurologic exam. fio2 improved as well. continues to diurese, and almost at dry weight. wbc uptrending and low-grade fever. remains on broad spectrum abx. 05/09: Remains encephalopathic off sedation, orally intubated on mechanical ventilation. One unit PRBCs ordered this morning for hemoglobin 6.9. No melena or rectal bleeding per RN. 05/10: Remains encephalopathic off sedation. Withdraws all 4 extremities to pain. Remains orally intubated on mechanical ventilation. Tolerating tube feeds. 05/11: Started on propofol last evening as she began to hyperventilate and gets tachypneic while on mechanical ventilation. Currently sedated, orally intubated on mechanical ventilation. Awaiting tracheostomy and PEG tube placement. 05/12: Patient underwent tracheostomy and PEG tube placement on 05/11 which she tolerated well. Fentanyl was stopped last evening and propofol was stopped around midnight. Remains encephalopathic, on mechanical ventilation via tracheostomy. Hemoglobin dropped to 6.6, being transfused 2 units PRBCs ordered earlier. 05/13: Encephalopathic on mechanical ventilation via tracheostomy. On C Pap trial currently. Did tolerate TPs for about 6 hours yesterday. 05/14: Remains encephalopathic on mechanical ventilation via tracheostomy. On C Pap overnight with pressure support +20, PEEP +5. Respiratory rate 28-30. Low- grade fevers. Tolerating tube feeds. 05/15: Remains encephalopathic on mechanical ventilation via tracheostomy. Opening eyes. Tolerating tube feeds. On C Pap trials. 05/16: neuro exam stable. trialed t-piece for 20 minutes, then became tachypneic and in distress. tolerating tube feeds. hgb stable. heparin drip continues. u/e doppler's with bilateral occlusive DVTs. 05/17: repeat interval head CT without significant change. OOB to chair today. hgb stable on heparin drip. family updated at bedside. full family meeting planned for afternoon. I talked with Dr. Gomez: plan will be tentatively to transition heparin drip to therapeutic lovenox on /tue of this week, repeat interval head CT tuesday, and plan for LTAC early next week if all remains stable. 05/18: hgb slight drop from 8.5 --> 7.8 today. otherwise neuro stable. no new complaints and nothing per nursing. 05/19: hgb stable. recheck yesterday was also stable. neuro exam stable. has been on t-piece x 24h now. doing well. resting comfortably on my exam this morning. 05/20: hgb dropped to 7.4, but no signs of active bleeding. neuro exam stable. per Dr. Gomez, he would prefer a formal MATY to rule out PFO. will talk with family today and plan for this today if possible. plan to transition to therapeutic lovenox today (will plan after MATY). 05/21: no neuro changes. yesterday MATY with PFO with left-->right shunt which became bidirectional with coughing. + bubble study. Dr. Mccall consulted yesterday to weigh in on closure procedure vs. medical management. nursing noted increased spacticity and contractures, primarily of the LUE/LLE which are starting to limit PT. family specifically asked for probiotics. also has been having some ectopy overnight with frequent PVCs. Objective Vital Signs Date Time Temp Pulse Resp B/P Pulse Ox O2 Delivery O2 Flow Rate FiO2 05/21/17 06:00 77 05/21/17 04:00 98.5 24 148/77 96 05/20/17 19:57 T-piece 35 05/18/17 20:32 6.00 Intake and Output 05/20/17 05/20/17 05/20/17 07:59 15:59 23:59 Intake Total 722 ml 370 ml 595 ml Output Total 500 ml 0 ml Balance 222 ml 370 ml 595 ml Result Diagram: 05/21/17 0349 05/21/17 0349 Imaging Last [address] 05/09/17 0800 Signed Impressions: Service Date/Time: Tuesday, May 09, 2017 08:46 - CONCLUSION: 1. Stable areas of acute intraparenchymal hemorrhage within the right temporal and parietal lobes with the largest area measuring 3 cm. Extensive cytotoxic edema is also noted throughout the right middle cerebral artery distribution and is stable. There is persistent herniation of the right temporal, parietal and frontal lobes through the right craniectomy defect which is stable. Nam Rivas MD Head CT 05/08/17 0000 Signed Impressions: Service Date/Time: Monday, May 08, 2017 13:20 - CONCLUSION: Evolving subacute right middle cerebral artery distribution infarct. 3.2 cm acute parenchymal hemorrhage has developed within the infarcted and herniated right temporal lobe. Minimal midline shift. Juancho Dolan MD Chest X-Ray 05/08/17 0000 Signed Impressions: Service Date/Time: Monday, May 08, 2017 11:52 - CONCLUSION: 1. New right subclavian central venous catheter with tip at the atriocaval junction. No pneumothorax. 2. Unchanged other lines and tubes, including a left internal jugular central venous catheter with tip in the right atrium. 3. Left greater than right basilar consolidation, both sides improved. Juancho Dolan MD Last 24 hours Impressions Chest X-Ray 05/05/17 0000 Signed Impressions: Service Date/Time: April 03:59 - CONCLUSION: Prominent bibasilar infiltrates. Tubes and catheters are all in good position Bertin White MD Objective Remarks gen: middle-aged female, lying in bed, encephalopathic heent: Positive pallor, no icterus. Tongue moist. Pupils 5 mm bilaterally reactive neck: Tracheostomy in place chest: On t-piece currently. unlabored. cv: normal rate, regular rhythm. sinus by tele. abd: soft, nontender, nondistended. no guarding. extr: no peripheral edema. distal pulses palpable, well perfused. neuro: Remains encephalopathic, minimal eye opening occasionally, pupils are now 3mm, equal and reactive. withdraws x 4. Weak gag. occasionally tracks with eyes. A/P Assessment and Plan Assessment: 42yF with acute right M1 MCA CVA now s/p systemic TPA and attempted interventional mechanical thrombectomy. Her course is complicated by malignant cerebral edema requiring decompressive craniectomy and therapeutic hypothermia. She remains with cerebral edema, off pressors now. now with multiple venous thromboses, including intra-hepatic IVC, LEs, b/l UEs, requiring therapeutic anticoagulation. MATY with intraatrial shunt. Cardiology consulted to eval for closure vs. medical management. Highly complex patient with multiple medical comorbidities which require ongoing management, including hemorrhagic conversion of strokes, need for anticoagulation, DVTs, hypercoagulable state, s/ p large MCA infarct. Plan by Systems: Neuro: Acute right M1 MCA CVA s/p systemic TPA and endovascular thrombectomy Dysarthria Left-sided hemiparesis Left-sided facial droop Malignant Cerebral Edema s/p Decompressive Craniectomy Elevated ICP Spasticity -- Continue neuro checks -- Off fentanyl since 05/11 evening. Propofol off since midnight 05/11. -- repeat EEG 05/04: generalized slowing. ?ictal focus over right hemisphere. -- repeat head CT 05/02, 05/04: stable edema, slightly enlarged left lateral ventricle, evolving right hemispheric cva. Head CT 05/08 and 05/09 with right temporoparietal 3cm intraparenchymal hemorrhage in herniated area. Neurosurgery following. -- SBP goal 110 - 160. -- keppra for seizure ppx -- Started on aspirin 325 mg daily on 05/12 (cleared by Dr. Nathan) -- start baclofen 10mg po q12h for spaciticity Respiratory: Chronic hypoxic and Hypercarbic respiratory failure --t-piece as tolerated. -- wean fio2 for goal spo2 > 90% -- vent bundle -- elevated HOB -- continue OOB to chair daily. daily SBTs and t-piece as tolerated. Cardiovascular Septic Shock- resolved Relative Adrenal Insufficiency- resolved. Acute intravascular volume overload- resolved. PFO/Intra-atrial shunt -- goal sbp 110 - 160 -- off vasopressors. off hydrocortisone. -- cardiology: Dr. Mccall consulted to provide recommendations for closure vs. medical management. Renal: Acute Kidney Injury- resolved. -- removed ribera 05/17 and straight cath q6h. -- Remains on free water via OGT. -- Off bumex drip/ Diamox since 05/08 -- Monitor and replete electrolytes, follow BUN/creatinine FEN/GI Acute protein calorie malnutrition- moderate, ongoing. Hypernatremia Lactic Acidosis- resolved. Anion-gap metabolic acidosis- resolved. Metabolic Alkalosis secondary to intravascular contraction- improved. -- TF, Jevity -- ICU electrolyte protocol -- Monitor and replete electrolytes. -- start lactobacillus at the family's request. Heme/ID: Anemia secondary to acute blood loss/ iron deficiency Sepsis/Leukocytosis E. Coli Pneumonia, likely secondary to aspiration at time of stroke Hypercoagulability Multiple Upper and Lower extremity DVTs -- Completed 10 days of Zosyn on 05/11. -- sputum culture 05/01, 05/09: e.coli, chowdhury sensitive -- urine, blood cultures 05/02 NGTD. -- daily cbc. Labs suggest iron deficiency. Initiated iron sucrose 200 mg IV daily 3 days on 05/11. 2 units PRBCs being transfused on 05/12 for hemoglobin 6.6. No overt evidence of GI blood loss. No evidence of bleeding from tracheostomy or PEG tube site. CT abdomen pelvis done on 05/12 with no evidence of retroperitoneal bleed. Starting oral iron/ B12, folic acid on 05/15. -- leukocytosis is concerning, CVL replaced 05/08, urine culture with Tej from 05/08, replaced Ribera and resent urine culture on 05/09 which is also growing tej. Started fluconazole 100 mg via OG tube daily on 05/09. Completed Zosyn day #10 on 05/11. Leukocytosis noted. Blood cultures 2 repeated on 05/12. Stool for C. difficile negative on 05/12. ID following continue daily cbc. Therapeutic Lovenox 80mg SQ q12h started 05/20. Anticoagulation plan: Transition to therapeutic lovenox 05/20 and if stable, interval head CT on Wednesday 05/23. plan for LTAC with therapeutic lovenox Tuesday/ Tuesday, and then plan to eventually transition to Coumadin, once out of high- risk re-bleed window. very high risk patient for bleeding, but also high risk for clotting, as now has developed multiple left and right sided emboli. Endo: Hypoglycemia- improved. Adrenal Insufficiency- resolved. -- Off d10w, glycemic control improved. -- frequent glucose checks. -- out of shock. decrease hydrocortisone to 50 mg iv daily on 05/12, d/c'd on (Random cortisol while in shock was 6) Prophy: -- SCDs, heparin drip transitioning to lovenox today. --Pepcid via PEG for gi prophylaxis Lines: piv's ribera removed 05/17, I/O straight cath q6h. dispo: remain in the ICU. high risk for decompensation in this highly complex patient. Remi Freeman MD May 21, 2017 06:59
[2017-05-21] MEDS ORDERED: POTASSIUM CHLORIDE 25 MEQ EFFERVESCENT TAB PO ONE (07:00)
[2017-05-21] MEDS: CHLORHEXIDINE 0.12% (ORAL KIT) 15 ML CUP MT SCH ×2 (08:00→23:21)
[2017-05-21] MEDS: POTASSIUM CHLOR 20 MEQ PREMIX 100 ML IV SCH ×2 (08:23→08:25)
[2017-05-21] MEDS: MAGNESIUM SULFATE 1 GM PREMIX 100 ML IV SCH ×2 (08:23→08:46)
[2017-05-21] MEDS: FERROUS SULFATE 300 MG /5ML UDC PEG SCH (08:23)
[2017-05-21] MEDS: levETIRAcetam INJ 500 MG in SODIUM CHLORIDE 0.9% INJ 100 ML IV SCH ×2 (08:23→20:13)
[2017-05-21] MEDS: ENOXAPARIN SODIUM 80 MG/0.8 ML SYRINGE SQ SCH ×2 (08:23→20:14)
[2017-05-21] MEDS: BACLOFEN 10 MG TAB PO SCH ×2 (08:24→20:14)
[2017-05-21] MEDS: FOLIC ACID 1 MG TAB PEG SCH (08:24)
[2017-05-21] MEDS: LACTOBACILLUS ACIDOPHILUS TAB PO SCH ×2 (08:24→20:13)
[2017-05-21] MEDS: ASPIRIN 325 MG TAB PO SCH (08:24)
[2017-05-21] MEDS: FAMOTIDINE 20 MG TAB PEG SCH ×2 (08:24→20:13)
[2017-05-21] MEDS: VITAMIN B COMPLEX/VIT C TAB PEG SCH (08:24)
[2017-05-21] MEDS: ARTIFICIAL TEARS OPTH OINT 3.5 APPLIC/3.5 GM TUBO EACH EYE SCH ×2 (08:25→21:00)
[2017-05-21] MEDS: NUTRISOURCE FIBER POWDER 1 PACK G-TUBE SCH ×2 (08:47→20:14)
[2017-05-21] MEDS: hydrALAZINE HCL 20 MG/ML VIAL IV PUSH PRN (14:38)
[2017-05-22] VITALS (14 sets, daily range): BP systolic 129–166; BP diastolic 74–87; PULSE 55–92; RESP 21–25; TEMP 98.2–98.8; O2SAT 95–98
[2017-05-22] MEDS: CHLORHEXIDINE GLUCONATE 2 % 1 PACK (2 CLOTHS) TOP SCH (03:26)
[2017-05-22] MEDS: PROPRANOLOL HCL 10 MG TAB PO SCH ×4 (03:26→21:02)
[2017-05-22 04:08] LABS: HEMATOCRIT 27.1 % (35.0-46.0); MEAN CELL VOLUME 94.5 FL (80.0-100.0); MEAN CORPUSCULAR HGB CONC 32.8 % (32.0-36.0); PLATELET COUNT 461 TH/MM3 (150-450); RED BLOOD COUNT 2.86 MIL/MM3 (4.00-5.30); RED CELL DISTRIBUTION WIDTH 17.3 % (11.6-17.2); REVIEW FLAG FINAL; WHITE BLOOD COUNT 9.4 TH/MM3 (4.0-11.0)
[2017-05-22 04:34] LABS: BICARBONATE 27.7 MEQ/L (21.0-32.0); POTASSIUM 3.7 MEQ/L (3.5-5.1)
[2017-05-22] MEDS: AMANTADINE HCL SOLN 100 MG/10 ML UDC PO SCH ×2 (06:33→12:56)
[2017-05-22] MEDS: levETIRAcetam INJ 500 MG in SODIUM CHLORIDE 0.9% INJ 100 ML IV SCH ×2 (07:55→20:06)
[2017-05-22] MEDS: ENOXAPARIN SODIUM 80 MG/0.8 ML SYRINGE SQ SCH ×2 (07:55→20:06)
[2017-05-22] MEDS: FERROUS SULFATE 300 MG /5ML UDC PEG SCH (07:55)
[2017-05-22] MEDS: ARTIFICIAL TEARS OPTH OINT 3.5 APPLIC/3.5 GM TUBO EACH EYE SCH ×2 (07:55→20:07)
[2017-05-22] MEDS: CHLORHEXIDINE 0.12% (ORAL KIT) 15 ML CUP MT SCH ×2 (07:55→20:00)
[2017-05-22] MEDS: ASPIRIN 325 MG TAB PO SCH (07:56)
[2017-05-22] MEDS: LACTOBACILLUS ACIDOPHILUS TAB PO SCH ×2 (07:56→20:06)
[2017-05-22] MEDS: BACLOFEN 10 MG TAB PO SCH ×2 (07:56→20:06)
[2017-05-22] MEDS: FAMOTIDINE 20 MG TAB PEG SCH ×2 (07:56→20:06)
[2017-05-22] MEDS: FOLIC ACID 1 MG TAB PEG SCH (07:56)
[2017-05-22] MEDS: VITAMIN B COMPLEX/VIT C TAB PEG SCH (07:56)
[2017-05-22] MEDS: NUTRISOURCE FIBER POWDER 1 PACK G-TUBE SCH ×2 (07:57→20:07)
--- NOTE | 2017-05-22 12:31 | MB ---
cc: MIGUELINA GALAN DATE OF CONSULTATION: 05/21/2017 REASON FOR CONSULTATION: PFO DATE OF : 1975 HISTORY OF PRESENT ILLNESS 42-year-old female admitted with a stroke. She received TPA and underwent angiogram which showed proximal right M1 occlusion. Numerous mechanical thrombectomy attempts were done. Her stroke was complicated with severe mass effect and midline shift that required a compression craniotomy and cranioplasty. She has been found to have bilateral lower and upper extremity thrombus. On further evaluation a MATY revealed PFO with right to left flow on Valsalva. Interventional cardiology has been consulted for evaluation of PFO closure in the setting of possible paradoxical emboli and evidence of extensive extremities thrombus. She has been started on chronic anticoagulation. Per mother she was very active, exercised regularly and has never had significant illness. REVIEW OF SYSTEMS: Unobtainable PAST MEDICAL HISTORY None. PAST SURGICAL HISTORY None. ALLERGIES SHELL FISH CARDIAC MEDICATIONS AT HOME: 1. Aspirin. 2. Hydralazine 3. Labetalol. 4. Propranolol. FAMILY HISTORY Noncontributory SOCIAL HISTORY No smoking, no alcohol use. 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 PHYSICAL EXAMINATION: VITAL SIGNS: Temperature 98, respiratory rate 20, pulse 92, blood pressure 156/ 79, O2 sats 95% on FIO2 of 0.35. General: She is awake in no acute distress. Neck: No JVD, ET tube in place. Heart: Regular rate and rhythm. Lungs: Clear to auscultation bilaterally. Abdomen: Soft, nontender. Extremities: No cyanosis. DATA CBC, hemoglobin 8.9, hematocrit 27, platelet count 461. Electrolytes: sodium 143, potassium 3.7, chloride 107, bicarb 27, BUN 11, creatinine 0.7, glucose 113. Urinalysis unremarkable. The bilateral lower extremity ultrasound revealed thrombus. Chest CTA: No pulmonary emboli. EKG: normal sinus rhythm. ASSESSMENT/PLAN This is an unfortunate 42 year-old female who presents with a stroke. No past medical history, with a complicated hospital stay, significant neurological deficits that has been found to have extensive bilateral lower extremity thrombus and now with evidence of PFO that is positive for shunt, making the possibility of paroxysmal emboli reasonable in this setting. Current recommendations for closure vary according to different Medical Societies guidelines. However, given the patient's age and significant thrombus in her lower extremities, it would be reasonable to consider doing a PFO closure although as explained to family this may not prevent another event. I have had an extensive discussion with the family as well as the assistant librarian, regarding the risks and benefits of closing the PFO. The patient's mother, who is the guardian, would like to think about this and discuss it with family members before deciding. At this time, I recommend to continue chronic anticoagulation and if the family decided to do it, will try to schedule for early this week. Thank you for the opportunity to participate in the care of this patient. Further therapy to be determined. MD MARIAJOSE López/DORIAN /10:50 AM /11:59 AM MTDBrian
--- NOTE | 2017-05-22 15:25 | HHI.CCPN ---
Subjective Remarks/Hospital Course This is a 42yF with unremarkable past medical history who presents to the [facility] emergency department with new-onset left-sided weakness and slurred speech. She is an employee of [employer] who had a witnessed onset of her symptoms at 12:45pm. In the [facility] ED she was immediately taken for non-contrasted head CT which was negative for acute hemorrhage. She was given iv tpa which was instituted 36 minutes after arrival, per my conversation with the materials coordinator. She was then emergently transferred to [facility]. CT angiography demonstrated acute right m1 cut-off. She was taken by [facility] and arrived directly to the IR suite, where I met and evaluated the patient. Due to the acute nature of her illness and her dysarthria, a complete history is not obtainable. She does endorse right-sided headache, although denied any chest pain, shortness of breath. 04/27: Back from OR after right craniectomy for decompression s/p left MCA CVA. Heavily sedated. Some new history from a co-worker indicates that patient started taking oral contraceptive 2 months ago. 04/28: Continued problems with cerebral edema as expected. Push osmolality a little higher and restrict fluid. Tolerate pH mildly acidotic to avoid cerebral vascular constriction. 04/29: Osmolality in good range. ICP controlled. Hypothermia to 34 degrees. Raise to 35 slowly as long as ICP is acceptable. Unable to start tube feeds yet as gut motility will be poor at cooler temperature. 04/30: ICP control good. Osmolality acceptable. Temp to 35 degrees. 05/01: Raise temp to 36 degrees and hold. CXR with light basilar infiltrates, no leukocytosis. Heavily sedated for brain protection/ICP control. Persistent blood sugars 60s range - will start D5/NS at 30/hr. 05/02: vasopressor requirement uptrending. wbc uptrending as well. repeat head ct with persistent edema, although ICPs slightly improved. 05/03: slight improvement in vasopressors and lactate with ivf resuscitation. however, still persists on high doses of multiple vasopressors. ICPs stable. off versed. sputum growing chowdhury-sensitive e-coli. I performed critical care bedside echo this morning which demonstrated preserved biventricular function, no significant valvular lesions, ivc with 20% variability and measures at 1.6cm. by echo appears clinically euvolemic. 05/04: vasopressors significantly improved throughout the night. but remains on two vasopressors. this morning, cvp climbing. weaning off sedation. bolt removed. icp's controlled. still poor neurologic exam, despite weaning off sedation. (delayed note entry. seen and evaluated at 06:20am). 05/05: patient seen and evaluated at 06:15am. almost off vasopressors. however, renal function significantly worse. patient is non-oliguric, but failing to diurese fast enough for rising filling pressures. FIO2 up to 100% this morning. CXR with evidence of volume overload. bedside ultrasound of the lungs demonstrate trace pleural effusions with densely consolidated lung oquendo. echo with dilated ivc without respiratory variation, RVSP ~50 mmHg based on trace TR jet. preserved LV and RV function. neuro exam remains poor. 05/06: diuresed > 8L uop overnight. fio2 down to 60%. Cr stabilized. Nephrology consulted. neuro exam still poor. 05/07: continues to diurese, >7L/24h. fio2 still at 50%. Cr stable. neuro exam: starting to withdraw x 4. MRI today without evidence of new infarction on the left. 05/08: slowly improving neurologic exam. fio2 improved as well. continues to diurese, and almost at dry weight. wbc uptrending and low-grade fever. remains on broad spectrum abx. 05/09: Remains encephalopathic off sedation, orally intubated on mechanical ventilation. One unit PRBCs ordered this morning for hemoglobin 6.9. No melena or rectal bleeding per RN. 05/10: Remains encephalopathic off sedation. Withdraws all 4 extremities to pain. Remains orally intubated on mechanical ventilation. Tolerating tube feeds. 05/11: Started on propofol last evening as she began to hyperventilate and gets tachypneic while on mechanical ventilation. Currently sedated, orally intubated on mechanical ventilation. Awaiting tracheostomy and PEG tube placement. 05/12: Patient underwent tracheostomy and PEG tube placement on 05/11 which she tolerated well. Fentanyl was stopped last evening and propofol was stopped around midnight. Remains encephalopathic, on mechanical ventilation via tracheostomy. Hemoglobin dropped to 6.6, being transfused 2 units PRBCs ordered earlier. 05/13: Encephalopathic on mechanical ventilation via tracheostomy. On C Pap trial currently. Did tolerate TPs for about 6 hours yesterday. 05/14: Remains encephalopathic on mechanical ventilation via tracheostomy. On C Pap overnight with pressure support +20, PEEP +5. Respiratory rate 28-30. Low- grade fevers. Tolerating tube feeds. 05/15: Remains encephalopathic on mechanical ventilation via tracheostomy. Opening eyes. Tolerating tube feeds. On C Pap trials. 05/16: neuro exam stable. trialed t-piece for 20 minutes, then became tachypneic and in distress. tolerating tube feeds. hgb stable. heparin drip continues. u/e doppler's with bilateral occlusive DVTs. 05/17: repeat interval head CT without significant change. OOB to chair today. hgb stable on heparin drip. family updated at bedside. full family meeting planned for afternoon. I talked with Dr. Gomez: plan will be tentatively to transition heparin drip to therapeutic lovenox on /tue of this week, repeat interval head CT tuesday, and plan for LTAC early next week if all remains stable. 05/18: hgb slight drop from 8.5 --> 7.8 today. otherwise neuro stable. no new complaints and nothing per nursing. 05/19: hgb stable. recheck yesterday was also stable. neuro exam stable. has been on t-piece x 24h now. doing well. resting comfortably on my exam this morning. 05/20: hgb dropped to 7.4, but no signs of active bleeding. neuro exam stable. per Dr. Gomez, he would prefer a formal MATY to rule out PFO. will talk with family today and plan for this today if possible. plan to transition to therapeutic lovenox today (will plan after MATY). 05/21: no neuro changes. yesterday MATY with PFO with left-->right shunt which became bidirectional with coughing. + bubble study. Dr. Mccall consulted yesterday to weigh in on closure procedure vs. medical management. nursing noted increased spacticity and contractures, primarily of the LUE/LLE which are starting to limit PT. family specifically asked for probiotics. also has been having some ectopy overnight with frequent PVCs. 05/22: neuro stable. initially on my eval somnolent, but later on re-eval awake and tracking. cardiology consulted yesterday and they offered possible percutaneous ASD closure device. hgb stable. plan for ct brain in the AM. nearing readiness for select. Objective Vital Signs Date Time Temp Pulse Resp B/P Pulse Ox O2 Delivery O2 Flow Rate FiO2 05/22/17 14:00 55 05/22/17 12:00 98.2 21 129/74 96 05/22/17 07:48 T-piece 35 05/21/17 20:07 5.00 Intake and Output 05/21/17 05/21/17 05/21/17 07:59 15:59 23:59 Intake Total 521 ml 1198 ml 672 ml Output Total 0 ml Balance 521 ml 1198 ml 672 ml Result Diagram: 05/22/17 0331 05/22/17 0331 Imaging Last [address] 05/09/17 0800 Signed Impressions: Service Date/Time: Tuesday, May 09, 2017 08:46 - CONCLUSION: 1. Stable areas of acute intraparenchymal hemorrhage within the right temporal and parietal lobes with the largest area measuring 3 cm. Extensive cytotoxic edema is also noted throughout the right middle cerebral artery distribution and is stable. There is persistent herniation of the right temporal, parietal and frontal lobes through the right craniectomy defect which is stable. Nam Rivas MD Head CT 05/08/17 0000 Signed Impressions: Service Date/Time: Monday, May 08, 2017 13:20 - CONCLUSION: Evolving subacute right middle cerebral artery distribution infarct. 3.2 cm acute parenchymal hemorrhage has developed within the infarcted and herniated right temporal lobe. Minimal midline shift. Juancho Dolan MD Chest X-Ray 05/08/17 0000 Signed Impressions: Service Date/Time: Monday, May 08, 2017 11:52 - CONCLUSION: 1. New right subclavian central venous catheter with tip at the atriocaval junction. No pneumothorax. 2. Unchanged other lines and tubes, including a left internal jugular central venous catheter with tip in the right atrium. 3. Left greater than right basilar consolidation, both sides improved. Juancho Dolan MD Last 24 hours Impressions Chest X-Ray 05/05/17 0000 Signed Impressions: Service Date/Time: April 03:59 - CONCLUSION: Prominent bibasilar infiltrates. Tubes and catheters are all in good position Bertin White MD Objective Remarks gen: middle-aged female, lying in bed, encephalopathic heent: Positive pallor, no icterus. Tongue moist. neck: Tracheostomy in place chest: On t-piece currently. unlabored. cv: normal rate, regular rhythm. sinus by tele. abd: soft, nontender, nondistended. no guarding. extr: no peripheral edema. distal pulses palpable, well perfused. neuro: Remains encephalopathic, minimal eye opening occasionally, withdraws x 4. Weak gag. occasionally tracks with eyes. A/P Assessment and Plan Assessment: 42yF with acute right M1 MCA CVA now s/p systemic TPA and attempted interventional mechanical thrombectomy. Her course is complicated by malignant cerebral edema requiring decompressive craniectomy and therapeutic hypothermia. She remains with cerebral edema, off pressors now. now with multiple venous thromboses, including intra-hepatic IVC, LEs, b/l UEs, requiring therapeutic anticoagulation. MATY with intraatrial shunt. Cardiology consulted and offering percutaneous ASD closure vs. conservative management with anticoagulation if the family wants. Highly complex patient with multiple medical comorbidities which require ongoing management, including hemorrhagic conversion of strokes, need for anticoagulation, DVTs, hypercoagulable state, s/p large MCA infarct. Plan by Systems: Neuro: Acute right M1 MCA CVA s/p systemic TPA and endovascular thrombectomy Dysarthria Left-sided hemiparesis Left-sided facial droop Malignant Cerebral Edema s/p Decompressive Craniectomy Elevated ICP Spasticity -- Continue neuro checks -- Off fentanyl since 05/11 evening. Propofol off since midnight 05/11. -- repeat EEG 05/04: generalized slowing. ?ictal focus over right hemisphere. -- repeat head CT 05/02, 05/04: stable edema, slightly enlarged left lateral ventricle, evolving right hemispheric cva. Head CT 05/08 and 05/09 with right temporoparietal 3cm intraparenchymal hemorrhage in herniated area. Neurosurgery following. -- SBP goal 110 - 160. -- keppra for seizure ppx -- Started on aspirin 325 mg daily on 05/12 (cleared by Dr. Nathan) -- baclofen 10mg po q12h for spaciticity -- am head CT planned to eval for further signs of bleeding. Respiratory: Chronic hypoxic and Hypercarbic respiratory failure --t-piece as tolerated. -- wean fio2 for goal spo2 > 90% -- vent bundle -- elevated HOB -- continue OOB to chair daily. t-piece as tolerated. Cardiovascular Septic Shock- resolved Relative Adrenal Insufficiency- resolved. Acute intravascular volume overload- resolved. PFO/Intra-atrial shunt -- goal sbp 110 - 160 -- off vasopressors. off hydrocortisone. -- cardiology: Dr. Mccall consulted to provide recommendations for closure vs. medical management. family deciding. Renal: Acute Kidney Injury- resolved. -- removed ribera 05/17 and straight cath q6h. -- Remains on free water via OGT. -- Off bumex drip/ Diamox since 05/08 -- Monitor and replete electrolytes, follow BUN/creatinine FEN/GI Acute protein calorie malnutrition- moderate, ongoing. Hypernatremia Lactic Acidosis- resolved. Anion-gap metabolic acidosis- resolved. Metabolic Alkalosis secondary to intravascular contraction- improved. -- TF, Jevity -- ICU electrolyte protocol -- Monitor and replete electrolytes. -- lactobacillus at the family's request. Heme/ID: Anemia secondary to acute blood loss/ iron deficiency Sepsis/Leukocytosis E. Coli Pneumonia, likely secondary to aspiration at time of stroke Hypercoagulability Multiple Upper and Lower extremity DVTs -- Completed 10 days of Zosyn on 05/11. -- sputum culture 05/01, 05/09: e.coli, chowdhury sensitive -- urine, blood cultures 05/02 NGTD. -- daily cbc. Labs suggest iron deficiency. Initiated iron sucrose 200 mg IV daily 3 days on 05/11. 2 units PRBCs being transfused on 05/12 for hemoglobin 6.6. No overt evidence of GI blood loss. No evidence of bleeding from tracheostomy or PEG tube site. CT abdomen pelvis done on 05/12 with no evidence of retroperitoneal bleed. Starting oral iron/ B12, folic acid on 05/15. -- leukocytosis is concerning, CVL replaced 05/08, urine culture with Tej from 05/08, replaced Ribera and resent urine culture on 05/09 which is also growing tej. Started fluconazole 100 mg via OG tube daily on 05/09. Completed Zosyn day #10 on 05/11. Leukocytosis noted. Blood cultures 2 repeated on 05/12. Stool for C. difficile negative on 05/12. ID following continue daily cbc. Therapeutic Lovenox 80mg SQ q12h started 05/20. Anticoagulation plan: Transition to therapeutic lovenox 05/20 and if stable, interval head CT on Wednesday 05/23. plan for LTAC with therapeutic lovenox Tuesday/ Tuesday, and then plan to eventually transition to Coumadin, once out of high- risk re-bleed window. very high risk patient for bleeding, but also high risk for clotting, as now has developed multiple left and right sided emboli. Endo: Hypoglycemia- improved. Adrenal Insufficiency- resolved. -- Off d10w, glycemic control improved. -- frequent glucose checks. -- out of shock. decrease hydrocortisone to 50 mg iv daily on 05/12, d/c'd on (Random cortisol while in shock was 6) Prophy: -- SCDs, heparin drip transitioning to lovenox today. --Pepcid via PEG for gi prophylaxis Lines: piv's ribera removed 05/17, I/O straight cath q6h. dispo: remain in the ICU. high risk for decompensation in this highly complex patient. Remi Freeman MD May 22, 2017 15:24
[2017-05-22] MEDS: hydrALAZINE HCL 20 MG/ML VIAL IV PUSH PRN (22:09)
[2017-05-23] VITALS (10 sets, daily range): BP systolic 136–171; BP diastolic 72–88; PULSE 56–105; RESP 20–24; TEMP 97.4–98.9; O2SAT 95–97
[2017-05-23] MEDS: CHLORHEXIDINE GLUCONATE 2 % 1 PACK (2 CLOTHS) TOP SCH (02:50)
[2017-05-23] MEDS: PROPRANOLOL HCL 10 MG TAB PO SCH ×3 (03:02→15:05)
--- NOTE | 2017-05-23 05:11 | RADRPT ---
EXAM DATE/TIME: 05/23/2017 04:19 [place] COMPARISON: CT BRAIN W/O CONTRAST, May 12, 2017, 4:19. CT BRAIN W/O CONTRAST, May 15, 2017, 17:56. CT BRAIN W /O CONTRAST, May 17, 2017, 4:37. INDICATIONS : Follow up stroke. RADIATION DOSE: 52.23 CTDIvol (mGy) MEDICAL HISTORY : Non-responsive. SURGICAL HISTORY : Non-responsive. ENCOUNTER: Subsequent ACUITY: 1 month PAIN SCALE: Non-responsive LOCATION: cranial TECHNIQUE: Multiple contiguous axial images were obtained of the head. Using automated exposure control and adj ustment of the mA and/or kV according to patient size, radiation dose was kept as low as reasonably a chievable to obtain optimal diagnostic quality images. DICOM format image data is available electro nically for review and comparison. FINDINGS: The degree of herniation of brain through the right parietal craniotomy is similar to prior. The de geographic areas of hypodensity in the right parietal and occipital lobe extending to the high convex ity parasagittal right occipital lobe is stable in distribution. The ventricles are dilated and the midline shift has resolved. No new findings seen. The visualized portion of the orbits paranasal si nuses is unremarkable. CONCLUSION: Evolution of the hemorrhage along the anterior margin of the herniated right MCA infarction. Interva l resolution of midline shift. The distribution of hypodensity in the right hemisphere involving fro ntal, parietal, and occipital lobes, is stable when compared to 05/12/17. No new hemorrhage. Floyd Segovia MD on May 23, 2017 at 5:03 Board Certified Radiologist. This report was verified electronically.
[2017-05-23] MEDS: AMANTADINE HCL SOLN 100 MG/10 ML UDC PO SCH ×2 (06:03→11:36)
[2017-05-23 06:11] LABS: HEMATOCRIT 26.4 % (35.0-46.0); MEAN CELL VOLUME 93.3 FL (80.0-100.0); MEAN CORPUSCULAR HEMOGLOBIN 31.6 PG (27.0-34.0); MEAN CORPUSCULAR HGB CONC 33.9 % (32.0-36.0); PLATELET COUNT 438 TH/MM3 (150-450); RED BLOOD COUNT 2.83 MIL/MM3 (4.00-5.30); RED CELL DISTRIBUTION WIDTH 17.4 % (11.6-17.2); REVIEW FLAG FINAL; WHITE BLOOD COUNT 8.8 TH/MM3 (4.0-11.0)
[2017-05-23 06:39] LABS: BICARBONATE 29.1 MEQ/L (21.0-32.0); POTASSIUM 3.7 MEQ/L (3.5-5.1)
[2017-05-23] MEDS: ENOXAPARIN SODIUM 80 MG/0.8 ML SYRINGE SQ SCH (07:36)
[2017-05-23] MEDS: hydrALAZINE HCL 20 MG/ML VIAL IV PUSH PRN (07:36)
[2017-05-23] MEDS: CHLORHEXIDINE 0.12% (ORAL KIT) 15 ML CUP MT SCH (07:36)
[2017-05-23] MEDS: FAMOTIDINE 20 MG TAB PEG SCH (08:04)
[2017-05-23] MEDS: levETIRAcetam INJ 500 MG in SODIUM CHLORIDE 0.9% INJ 100 ML IV SCH (08:04)
[2017-05-23] MEDS: FOLIC ACID 1 MG TAB PEG SCH (08:04)
[2017-05-23] MEDS: LACTOBACILLUS ACIDOPHILUS TAB PO SCH (08:04)
[2017-05-23] MEDS: ASPIRIN 325 MG TAB PO SCH (08:04)
[2017-05-23] MEDS: FERROUS SULFATE 300 MG /5ML UDC PEG SCH (08:04)
[2017-05-23] MEDS: ARTIFICIAL TEARS OPTH OINT 3.5 APPLIC/3.5 GM TUBO EACH EYE SCH (08:04)
[2017-05-23] MEDS: VITAMIN B COMPLEX/VIT C TAB PEG SCH (08:04)
[2017-05-23] MEDS: BACLOFEN 10 MG TAB PO SCH (08:04)
[2017-05-23] MEDS: NUTRISOURCE FIBER POWDER 1 PACK G-TUBE SCH (08:04)
--- NOTE | 2017-05-23 13:18 | HHI.CCPN ---
Subjective Remarks/Hospital Course This is a 42yF with unremarkable past medical history who presents to the [facility] emergency department with new-onset left-sided weakness and slurred speech. She is an employee of [employer] who had a witnessed onset of her symptoms at 12:45pm. In the [facility] ED she was immediately taken for non-contrasted head CT which was negative for acute hemorrhage. She was given iv tpa which was instituted 36 minutes after arrival, per my conversation with the equipment coordinator. She was then emergently transferred to [facility]. CT angiography demonstrated acute right m1 cut-off. She was taken by [facility] and arrived directly to the IR suite, where I met and evaluated the patient. Due to the acute nature of her illness and her dysarthria, a complete history is not obtainable. She does endorse right-sided headache, although denied any chest pain, shortness of breath. 04/27: Back from OR after right craniectomy for decompression s/p left MCA CVA. Heavily sedated. Some new history from a co-worker indicates that patient started taking oral contraceptive 2 months ago. 04/28: Continued problems with cerebral edema as expected. Push osmolality a little higher and restrict fluid. Tolerate pH mildly acidotic to avoid cerebral vascular constriction. 04/29: Osmolality in good range. ICP controlled. Hypothermia to 34 degrees. Raise to 35 slowly as long as ICP is acceptable. Unable to start tube feeds yet as gut motility will be poor at cooler temperature. 04/30: ICP control good. Osmolality acceptable. Temp to 35 degrees. 05/01: Raise temp to 36 degrees and hold. CXR with light basilar infiltrates, no leukocytosis. Heavily sedated for brain protection/ICP control. Persistent blood sugars 60s range - will start D5/NS at 30/hr. 05/02: vasopressor requirement uptrending. wbc uptrending as well. repeat head ct with persistent edema, although ICPs slightly improved. 05/03: slight improvement in vasopressors and lactate with ivf resuscitation. however, still persists on high doses of multiple vasopressors. ICPs stable. off versed. sputum growing chowdhury-sensitive e-coli. I performed critical care bedside echo this morning which demonstrated preserved biventricular function, no significant valvular lesions, ivc with 20% variability and measures at 1.6cm. by echo appears clinically euvolemic. 05/04: vasopressors significantly improved throughout the night. but remains on two vasopressors. this morning, cvp climbing. weaning off sedation. bolt removed. icp's controlled. still poor neurologic exam, despite weaning off sedation. (delayed note entry. seen and evaluated at 06:20am). 05/05: patient seen and evaluated at 06:15am. almost off vasopressors. however, renal function significantly worse. patient is non-oliguric, but failing to diurese fast enough for rising filling pressures. FIO2 up to 100% this morning. CXR with evidence of volume overload. bedside ultrasound of the lungs demonstrate trace pleural effusions with densely consolidated lung oquendo. echo with dilated ivc without respiratory variation, RVSP ~50 mmHg based on trace TR jet. preserved LV and RV function. neuro exam remains poor. 05/06: diuresed > 8L uop overnight. fio2 down to 60%. Cr stabilized. Nephrology consulted. neuro exam still poor. 05/07: continues to diurese, >7L/24h. fio2 still at 50%. Cr stable. neuro exam: starting to withdraw x 4. MRI today without evidence of new infarction on the left. 05/08: slowly improving neurologic exam. fio2 improved as well. continues to diurese, and almost at dry weight. wbc uptrending and low-grade fever. remains on broad spectrum abx. 05/09: Remains encephalopathic off sedation, orally intubated on mechanical ventilation. One unit PRBCs ordered this morning for hemoglobin 6.9. No melena or rectal bleeding per RN. 05/10: Remains encephalopathic off sedation. Withdraws all 4 extremities to pain. Remains orally intubated on mechanical ventilation. Tolerating tube feeds. 05/11: Started on propofol last evening as she began to hyperventilate and gets tachypneic while on mechanical ventilation. Currently sedated, orally intubated on mechanical ventilation. Awaiting tracheostomy and PEG tube placement. 05/12: Patient underwent tracheostomy and PEG tube placement on 05/11 which she tolerated well. Fentanyl was stopped last evening and propofol was stopped around midnight. Remains encephalopathic, on mechanical ventilation via tracheostomy. Hemoglobin dropped to 6.6, being transfused 2 units PRBCs ordered earlier. 05/13: Encephalopathic on mechanical ventilation via tracheostomy. On C Pap trial currently. Did tolerate TPs for about 6 hours yesterday. 05/14: Remains encephalopathic on mechanical ventilation via tracheostomy. On C Pap overnight with pressure support +20, PEEP +5. Respiratory rate 28-30. Low- grade fevers. Tolerating tube feeds. 05/15: Remains encephalopathic on mechanical ventilation via tracheostomy. Opening eyes. Tolerating tube feeds. On C Pap trials. 05/16: neuro exam stable. trialed t-piece for 20 minutes, then became tachypneic and in distress. tolerating tube feeds. hgb stable. heparin drip continues. u/e doppler's with bilateral occlusive DVTs. 05/17: repeat interval head CT without significant change. OOB to chair today. hgb stable on heparin drip. family updated at bedside. full family meeting planned for afternoon. I talked with Dr. Gomez: plan will be tentatively to transition heparin drip to therapeutic lovenox on /tue of this week, repeat interval head CT tuesday, and plan for LTAC early next week if all remains stable. 05/18: hgb slight drop from 8.5 --> 7.8 today. otherwise neuro stable. no new complaints and nothing per nursing. 05/19: hgb stable. recheck yesterday was also stable. neuro exam stable. has been on t-piece x 24h now. doing well. resting comfortably on my exam this morning. 05/20: hgb dropped to 7.4, but no signs of active bleeding. neuro exam stable. per Dr. Gomez, he would prefer a formal MATY to rule out PFO. will talk with family today and plan for this today if possible. plan to transition to therapeutic lovenox today (will plan after MATY). 05/21: no neuro changes. yesterday MATY with PFO with left-->right shunt which became bidirectional with coughing. + bubble study. Dr. Mccall consulted yesterday to weigh in on closure procedure vs. medical management. nursing noted increased spacticity and contractures, primarily of the LUE/LLE which are starting to limit PT. family specifically asked for probiotics. also has been having some ectopy overnight with frequent PVCs. 05/22: neuro stable. initially on my eval somnolent, but later on re-eval awake and tracking. cardiology consulted yesterday and they offered possible percutaneous ASD closure device. hgb stable. plan for ct brain in the AM. nearing readiness for [facility]. 05/23: stable. CT head without significant change and without evidence of bleed. Mother looking into [facility] and deciding whether or not she would want ASD closure vs. conservative management. From a medical standpoint, if we do not pursue ASD closure, she is stable for transition to LTAC Objective Vital Signs Date Time Temp Pulse Resp B/P Pulse Ox O2 Delivery O2 Flow Rate FiO2 05/23/17 12:00 97.4 56 20 154/84 97 05/23/17 07:45 T-piece 5.00 35 Intake and Output 05/22/17 05/22/17 05/23/17 08:00 16:00 00:00 Intake Total 553 ml 518 ml 698 ml Output Total 0 ml 0 ml Balance 553 ml 518 ml 698 ml Result Diagram: 05/23/17 0601 05/23/17 0601 Imaging Last [address] 05/09/17 0800 Signed Impressions: Service Date/Time: Tuesday, May 09, 2017 08:46 - CONCLUSION: 1. Stable areas of acute intraparenchymal hemorrhage within the right temporal and parietal lobes with the largest area measuring 3 cm. Extensive cytotoxic edema is also noted throughout the right middle cerebral artery distribution and is stable. There is persistent herniation of the right temporal, parietal and frontal lobes through the right craniectomy defect which is stable. Nam Rivas MD Head CT 05/08/17 0000 Signed Impressions: Service Date/Time: Monday, May 08, 2017 13:20 - CONCLUSION: Evolving subacute right middle cerebral artery distribution infarct. 3.2 cm acute parenchymal hemorrhage has developed within the infarcted and herniated right temporal lobe. Minimal midline shift. Juancho Dolan MD Chest X-Ray 05/08/17 0000 Signed Impressions: Service Date/Time: Monday, May 08, 2017 11:52 - CONCLUSION: 1. New right subclavian central venous catheter with tip at the atriocaval junction. No pneumothorax. 2. Unchanged other lines and tubes, including a left internal jugular central venous catheter with tip in the right atrium. 3. Left greater than right basilar consolidation, both sides improved. Juancho Dolan MD Last 24 hours Impressions Chest X-Ray 05/05/17 0000 Signed Impressions: Service Date/Time: April 03:59 - CONCLUSION: Prominent bibasilar infiltrates. Tubes and catheters are all in good position Bertin White MD Objective Remarks gen: middle-aged female, lying in bed, encephalopathic heent: Positive pallor, no icterus. Tongue moist. neck: Tracheostomy in place chest: On t-piece currently. unlabored. cv: normal rate, regular rhythm. sinus by tele. abd: soft, nontender, nondistended. no guarding. extr: no peripheral edema. distal pulses palpable, well perfused. neuro: Remains encephalopathic, minimal eye opening occasionally, withdraws x 4. Weak gag. occasionally tracks with eyes. A/P Assessment and Plan Assessment: 42yF with acute right M1 MCA CVA now s/p systemic TPA and attempted interventional mechanical thrombectomy. Her course is complicated by malignant cerebral edema requiring decompressive craniectomy and therapeutic hypothermia. She remains with cerebral edema, off pressors now. now with multiple venous thromboses, including intra-hepatic IVC, LEs, b/l UEs, requiring therapeutic anticoagulation. MATY with intraatrial shunt. Cardiology consulted and offering percutaneous ASD closure vs. conservative management with anticoagulation if the family wants. Highly complex patient with multiple medical comorbidities which require ongoing management, including hemorrhagic conversion of strokes, need for anticoagulation, DVTs, hypercoagulable state, s/p large MCA infarct. Stable for transfer to LTAC. Plan by Systems: Neuro: Acute right M1 MCA CVA s/p systemic TPA and endovascular thrombectomy Dysarthria Left-sided hemiparesis Left-sided facial droop Malignant Cerebral Edema- resolved. s/p Decompressive Craniectomy Elevated ICP- resolved. Spasticity -- Continue neuro checks -- Off fentanyl since 05/11 evening. Propofol off since midnight 05/11. -- repeat EEG 05/04: generalized slowing. ?ictal focus over right hemisphere. -- repeat head CT 05/02, 05/04: stable edema, slightly enlarged left lateral ventricle, evolving right hemispheric cva. Head CT 05/08 and 05/09 with right temporoparietal 3cm intraparenchymal hemorrhage in herniated area. Neurosurgery following. -- SBP goal 110 - 160. -- keppra for seizure ppx -- Started on aspirin 325 mg daily on 05/12 (cleared by Dr. Nathan) -- baclofen 10mg po q12h for spaciticity -- head CT 05/23 without interval change. Respiratory: Chronic hypoxic and Hypercarbic respiratory failure --t-piece as tolerated. -- wean fio2 for goal spo2 > 90% -- vent bundle -- elevated HOB -- continue OOB to chair daily. t-piece as tolerated. Cardiovascular Septic Shock- resolved Relative Adrenal Insufficiency- resolved. Acute intravascular volume overload- resolved. PFO/Intra-atrial shunt -- goal sbp 110 - 160 -- off vasopressors. off hydrocortisone. -- cardiology: Dr. Mccall consulted to provide recommendations for closure vs. medical management. family deciding. Renal: Acute Kidney Injury- resolved. -- removed ribera 05/17 and straight cath q6h. -- Remains on free water via OGT. -- Off bumex drip/ Diamox since 05/08 -- Monitor and replete electrolytes, follow BUN/creatinine FEN/GI Acute protein calorie malnutrition- moderate, ongoing. Hypernatremia Lactic Acidosis- resolved. Anion-gap metabolic acidosis- resolved. Metabolic Alkalosis secondary to intravascular contraction- improved. -- TF, Jevity -- ICU electrolyte protocol -- Monitor and replete electrolytes. -- lactobacillus at the family's request. Heme/ID: Anemia secondary to acute blood loss/ iron deficiency Sepsis/Leukocytosis E. Coli Pneumonia, likely secondary to aspiration at time of stroke Hypercoagulability Multiple Upper and Lower extremity DVTs -- Completed 10 days of Zosyn on 05/11. -- sputum culture 05/01, 05/09: e.coli, chowdhury sensitive -- urine, blood cultures 05/02 NGTD. -- daily cbc. Labs suggest iron deficiency. Initiated iron sucrose 200 mg IV daily 3 days on 05/11. 2 units PRBCs being transfused on 05/12 for hemoglobin 6.6. No overt evidence of GI blood loss. No evidence of bleeding from tracheostomy or PEG tube site. CT abdomen pelvis done on 05/12 with no evidence of retroperitoneal bleed. Starting oral iron/ B12, folic acid on 05/15. -- leukocytosis is concerning, CVL replaced 05/08, urine culture with Tej from 05/08, replaced Ribera and resent urine culture on 05/09 which is also growing tej. Started fluconazole 100 mg via OG tube daily on 05/09. Completed Zosyn day #10 on 05/11. Leukocytosis noted. Blood cultures 2 repeated on 05/12. Stool for C. difficile negative on 05/12. ID following continue daily cbc. Therapeutic Lovenox 80mg SQ q12h started 05/20. Anticoagulation plan: Transition to therapeutic lovenox 05/20. plan for LTAC with therapeutic lovenox Tuesday/Tuesday, and then plan to eventually transition to Coumadin, once out of high-risk re-bleed window. very high risk patient for bleeding, but also high risk for clotting, as now has developed multiple left and right sided emboli. Endo: Hypoglycemia- improved. Adrenal Insufficiency- resolved. -- Off d10w, glycemic control improved. -- frequent glucose checks. -- out of shock. decrease hydrocortisone to 50 mg iv daily on 05/12, d/c'd on (Random cortisol while in shock was 6) Prophy: -- SCDs, heparin drip transitioning to lovenox today. --Pepcid via PEG for gi prophylaxis Lines: piv's ribera removed 05/17, I/O straight cath q6h. dispo: ready for transfer to [facility]. Remi Freeman MD May 23, 2017 13:18
--- NOTE | 2017-05-23 16:37 | HHI.DS ---
Discharge Summary Admission Date April 26, 2017 at 13:51 Admitting Diagnosis CVA Brief History This is a 42yF with unremarkable past medical history who presents to the [facility] emergency department with new-onset left-sided weakness and slurred speech. She is an employee of [employer] who had a witnessed onset of her symptoms at 12:45pm. In the [facility] ED she was immediately taken for non-contrasted head CT which was negative for acute hemorrhage. She was given iv tpa which was instituted 36 minutes after arrival, per my conversation with the residential program coordinator. She was then emergently transferred to [facility]. CT angiography demonstrated acute right m1 cut-off. She was taken by [facility] and arrived directly to the IR suite, where I met and evaluated the patient. Due to the acute nature of her illness and her dysarthria, a complete history is not obtainable. She does endorse right-sided headache, although denied any chest pain, shortness of breath. CBC/BMP: 05/23/17 0601 05/23/17 0601 Significant Findings Laboratory Tests Test 05/21/17 05/22/17 05/23/17 03:49 03:31 06:01 Red Blood Count 2.64 MIL/MM3 2.86 MIL/MM3 2.83 MIL/MM3 (4.00-5.30) (4.00-5.30) (4.00-5.30) Hemoglobin 8.4 GM/DL 8.9 GM/DL 9.0 GM/DL (11.6-15.3) (11.6-15.3) (11.6-15.3) Hematocrit 24.5 % 27.1 % 26.4 % (35.0-46.0) (35.0-46.0) (35.0-46.0) Platelet Count 478 TH/MM3 461 TH/MM3 (150-450) (150-450) Potassium Level 3.4 MEQ/L (3.5-5.1) Chloride Level 108 MEQ/L (98-107) Estimat Glomerular Filtration 85 ML/MIN (>89) 88 ML/MIN (>89) Rate Calcium Level 8.4 MG/DL (8.5-10.1) Red Cell Distribution Width 17.3 % 17.4 % (11.6-17.2) (11.6-17.2) Random Glucose 113 MG/DL (74-106) Hospital Course This is a 42yF with unremarkable past medical history who presents to the [facility] emergency department with new-onset left-sided weakness and slurred speech. She is an employee of [employer] who had a witnessed onset of her symptoms at 12:45pm. In the [facility] ED she was immediately taken for non-contrasted head CT which was negative for acute hemorrhage. She was given iv tpa which was instituted 36 minutes after arrival, per my conversation with the residential program coordinator. She was then emergently transferred to [facility]. CT angiography demonstrated acute right m1 cut-off. She was taken by [facility] and arrived directly to the IR suite, where I met and evaluated the patient. Due to the acute nature of her illness and her dysarthria, a complete history is not obtainable. She does endorse right-sided headache, although denied any chest pain, shortness of breath. 04/27: Back from OR after right craniectomy for decompression s/p left MCA CVA. Heavily sedated. Some new history from a co-worker indicates that patient started taking oral contraceptive 2 months ago. 04/28: Continued problems with cerebral edema as expected. Push osmolality a little higher and restrict fluid. Tolerate pH mildly acidotic to avoid cerebral vascular constriction. 04/29: Osmolality in good range. ICP controlled. Hypothermia to 34 degrees. Raise to 35 slowly as long as ICP is acceptable. Unable to start tube feeds yet as gut motility will be poor at cooler temperature. 04/30: ICP control good. Osmolality acceptable. Temp to 35 degrees. 05/01: Raise temp to 36 degrees and hold. CXR with light basilar infiltrates, no leukocytosis. Heavily sedated for brain protection/ICP control. Persistent blood sugars 60s range - will start D5/NS at 30/hr. 05/02: vasopressor requirement uptrending. wbc uptrending as well. repeat head ct with persistent edema, although ICPs slightly improved. 05/03: slight improvement in vasopressors and lactate with ivf resuscitation. however, still persists on high doses of multiple vasopressors. ICPs stable. off versed. sputum growing chowdhury-sensitive e-coli. I performed critical care bedside echo this morning which demonstrated preserved biventricular function, no significant valvular lesions, ivc with 20% variability and measures at 1.6cm. by echo appears clinically euvolemic. 05/04: vasopressors significantly improved throughout the night. but remains on two vasopressors. this morning, cvp climbing. weaning off sedation. bolt removed. icp's controlled. still poor neurologic exam, despite weaning off sedation. (delayed note entry. seen and evaluated at 06:20am). 05/05: patient seen and evaluated at 06:15am. almost off vasopressors. however, renal function significantly worse. patient is non-oliguric, but failing to diurese fast enough for rising filling pressures. FIO2 up to 100% this morning. CXR with evidence of volume overload. bedside ultrasound of the lungs demonstrate trace pleural effusions with densely consolidated lung oquendo. echo with dilated ivc without respiratory variation, RVSP ~50 mmHg based on trace TR jet. preserved LV and RV function. neuro exam remains poor. 05/06: diuresed > 8L uop overnight. fio2 down to 60%. Cr stabilized. Nephrology consulted. neuro exam still poor. 05/07: continues to diurese, >7L/24h. fio2 still at 50%. Cr stable. neuro exam: starting to withdraw x 4. MRI today without evidence of new infarction on the left. 05/08: slowly improving neurologic exam. fio2 improved as well. continues to diurese, and almost at dry weight. wbc uptrending and low-grade fever. remains on broad spectrum abx. 05/09: Remains encephalopathic off sedation, orally intubated on mechanical ventilation. One unit PRBCs ordered this morning for hemoglobin 6.9. No melena or rectal bleeding per RN. 05/10: Remains encephalopathic off sedation. Withdraws all 4 extremities to pain. Remains orally intubated on mechanical ventilation. Tolerating tube feeds. 05/11: Started on propofol last evening as she began to hyperventilate and gets tachypneic while on mechanical ventilation. Currently sedated, orally intubated on mechanical ventilation. Awaiting tracheostomy and PEG tube placement. 05/12: Patient underwent tracheostomy and PEG tube placement on 05/11 which she tolerated well. Fentanyl was stopped last evening and propofol was stopped around midnight. Remains encephalopathic, on mechanical ventilation via tracheostomy. Hemoglobin dropped to 6.6, being transfused 2 units PRBCs ordered earlier. 05/13: Encephalopathic on mechanical ventilation via tracheostomy. On C Pap trial currently. Did tolerate TPs for about 6 hours yesterday. 05/14: Remains encephalopathic on mechanical ventilation via tracheostomy. On C Pap overnight with pressure support +20, PEEP +5. Respiratory rate 28-30. Low- grade fevers. Tolerating tube feeds. 05/15: Remains encephalopathic on mechanical ventilation via tracheostomy. Opening eyes. Tolerating tube feeds. On C Pap trials. 05/16: neuro exam stable. trialed t-piece for 20 minutes, then became tachypneic and in distress. tolerating tube feeds. hgb stable. heparin drip continues. u/e doppler's with bilateral occlusive DVTs. 05/17: repeat interval head CT without significant change. OOB to chair today. hgb stable on heparin drip. family updated at bedside. full family meeting planned for . I talked with Dr. Gomez: plan will be tentatively to transition heparin drip to therapeutic lovenox on /tue of this week, repeat interval head CT tuesday, and plan for LTAC early next week if all remains stable. 05/18: hgb slight drop from 8.5 --> 7.8 today. otherwise neuro stable. no new complaints and nothing per nursing. 05/19: hgb stable. recheck yesterday was also stable. neuro exam stable. has been on t-piece x 24h now. doing well. resting comfortably on my exam this morning. 05/20: hgb dropped to 7.4, but no signs of active bleeding. neuro exam stable. per Dr. Gomez, he would prefer a formal MATY to rule out PFO. will talk with family today and plan for this today if possible. plan to transition to therapeutic lovenox today (will plan after MATY). 05/21: no neuro changes. yesterday MATY with PFO with left-->right shunt which became bidirectional with coughing. + bubble study. Dr. Mccall consulted yesterday to weigh in on closure procedure vs. medical management. nursing noted increased spacticity and contractures, primarily of the LUE/LLE which are starting to limit PT. family specifically asked for probiotics. also has been having some ectopy overnight with frequent PVCs. 05/22: neuro stable. initially on my eval somnolent, but later on re-eval awake and tracking. cardiology consulted yesterday and they offered possible percutaneous ASD closure device. hgb stable. plan for ct brain in the AM. nearing readiness for [facility]. 05/23: stable. CT head without significant change and without evidence of bleed. Mother looking into [facility] and deciding whether or not she would want ASD closure vs. conservative management. From a medical standpoint, if we do not pursue ASD closure, she is stable for transition to LTAC Pt Condition on Discharge: Stable Discharge Disposition: Trnsfr to Other Facility Discharge Instructions DIET: Follow Instructions for: On Tube Feeding Activities you can perform: See Additionl Instruction Other Activity Instructions: OOB to chair as tolerated. no medical restrictions. Remi Freeman MD May 23, 2017 16:37
[2017-05-23] MEDS ORDERED: hydrALAZINE HCL 20 MG/ML VIAL IV ONE (17:30)
== END 2017-05-23 18:05 | DRG 3 ==
LOC: PHED 12:59 → EEVIPCON 13:51 → PHEDA 13:51 → N03B 19:54
PROVIDERS: ADMIT Internal Medicine Critical Care Medicine; ATTEND Internal Medicine Critical Care Medicine
PROC: 5A1955Z Respiratory Ventilation, Greater than 96 Consecutive Hours (ICD-10-PCS; 2017-04-26)
PROC: 04QK0ZZ Repair Right Femoral Artery, Open Approach (ICD-10-PCS; 2017-04-26)
PROC: 3E03317 Introduction of Other Thrombolytic into Peripheral Vein, Percutaneous Approach (ICD-10-PCS; 2017-04-26)
PROC: 03CG3ZZ Extirpation of Matter from Intracranial Artery, Percutaneous Approach (ICD-10-PCS; 2017-04-27)
PROC: 009200Z Drainage of Dura Mater with Drainage Device, Open Approach (ICD-10-PCS; 2017-04-27)
PROC: 00N00ZZ Release Brain, Open Approach (ICD-10-PCS; 2017-04-27)
PROC: 00H032Z Insertion of Monitoring Device into Brain, Percutaneous Approach (ICD-10-PCS; 2017-04-27)
PROC: 4A107BD Monitoring of Intracranial Pressure, Via Natural or Artificial Opening (ICD-10-PCS; 2017-04-27)
PROC: 03HY32Z Insertion of Monitoring Device into Upper Artery, Percutaneous Approach (ICD-10-PCS; 2017-04-28)
PROC: 06HN33Z Insertion of Infusion Device into Left Femoral Vein, Percutaneous Approach (ICD-10-PCS; 2017-04-28)
PROC: B54CZZA Ultrasonography of Left Lower Extremity Veins, Guidance (ICD-10-PCS; 2017-04-28)
PROC: 6A4Z1ZZ Hypothermia, Multiple (ICD-10-PCS; 2017-04-29)
PROC: 30233N1 Transfusion of Nonautologous Red Blood Cells into Peripheral Vein, Percutaneous Approach (ICD-10-PCS; 2017-05-02)
PROC: 03HY32Z Insertion of Monitoring Device into Upper Artery, Percutaneous Approach (ICD-10-PCS; 2017-05-05)
PROC: 02HV33Z Insertion of Infusion Device into Superior Vena Cava, Percutaneous Approach (ICD-10-PCS; 2017-05-08)
PROC: 0DH64UZ Insertion of Feeding Device into Stomach, Percutaneous Endoscopic Approach (ICD-10-PCS; 2017-05-11)
PROC: 0BJ08ZZ Inspection of Tracheobronchial Tree, Via Natural or Artificial Opening Endoscopic (ICD-10-PCS; 2017-05-11)
PROC: 0DJ08ZZ Inspection of Upper Intestinal Tract, Via Natural or Artificial Opening Endoscopic (ICD-10-PCS; 2017-05-11)
PROC: 0B113F4 Bypass Trachea to Cutaneous with Tracheostomy Device, Percutaneous Approach (ICD-10-PCS; principal; 2017-05-11 11:20)
PROC: B246ZZ4 Ultrasonography of Right and Left Heart, Transesophageal (ICD-10-PCS; 2017-05-20)
DX: I63.311 Cerebral infarction due to thrombosis of right middle cerebral artery (principal); N17.0 Acute kidney failure with tubular necrosis; G93.6 Cerebral edema; R65.21 Severe sepsis with septic shock; I82.220 Acute embolism and thrombosis of inferior vena cava; A41.9 Sepsis, unspecified organism; G93.40 Encephalopathy, unspecified; J15.5 Pneumonia due to Escherichia coli; D68.69 Other thrombophilia; J96.01 Acute respiratory failure with hypoxia; J96.02 Acute respiratory failure with hypercapnia; S75.091A Other specified injury of femoral artery, right leg, initial encounter; E44.0 Moderate protein-calorie malnutrition; B37.0 Candidal stomatitis; E87.0 Hyperosmolality and hypernatremia; G81.94 Hemiplegia, unspecified affecting left nondominant side; Q21.1 Atrial septal defect; I82.422 Acute embolism and thrombosis of left iliac vein; I82.412 Acute embolism and thrombosis of left femoral vein; I82.621 Acute embolism and thrombosis of deep veins of right upper extremity; I82.612 Acute embolism and thrombosis of superficial veins of left upper extremity; E87.4 Mixed disorder of acid-base balance; D62 Acute posthemorrhagic anemia; E27.40 Unspecified adrenocortical insufficiency; B37.49 Other urogenital candidiasis; R13.10 Dysphagia, unspecified; E87.70 Fluid overload, unspecified; H57.04 Mydriasis; H57.02 Anisocoria; R47.1 Dysarthria and anarthria; R29.810 Facial weakness; R19.7 Diarrhea, unspecified; K29.70 Gastritis, unspecified, without bleeding; E16.2 Hypoglycemia, unspecified; E86.9 Volume depletion, unspecified; E87.6 Hypokalemia; I49.3 Ventricular premature depolarization; T45.615A Adverse effect of thrombolytic drugs, initial encounter; Y71.1 Therapeutic (nonsurgical) and rehabilitative cardiovascular devices associated with adverse incidents; Y84.2 Radiological procedure and radiotherapy as the cause of abnormal reaction of the patient, or of later complication, without mention of misadventure at the time of the procedure; Y92.239 Unspecified place in hospital as the place of occurrence of the external cause; Z91.013 Allergy to seafood
CPT/HCPCS: 31600; 31624; 36430; 36556; 36600; 36620; 51702; 61645; 70450; 70496; 70498; 70551; 71010; 71275; 74176; 76705; 76937; 80048; 80053; 80061; 80076; 80202; 80307; 81001; 81240; 81241; 82272; 82533; 82550; 82552; 82570; 82607; 82728; 82746; 82805; 82948; 83010; 83090; 83540; 83550; 83605; 83615; 83690; 83735; 83880; 83930; 83935; 84100; 84132; 84134; 84145; 84155; 84295; 84300; 84484; 84702; 85007; 85014; 85018; 85025; 85027; 85044; 85300; 85303; 85306; 85384; 85598; 85610; 85613; 85730; 86146; 86147; 86148; 86850; 86880; 86900; 86901; 86920; 87040; 87070; 87077; 87086; 87186; 87205; 87493; 87641; 93005; 93306; 93312; 93320; 93325; 93970; 94003; 94640; 94664; 94667; 94770; 95819; 96374; 96375; C1757; C1760; C1769; C1773; C1887; C9113; J0131; J0171; J0360; J0461; J0610; J0690; J0696; J1120; J1205; J1265; J1580; J1644; J1650; J1720; J1756; J1940; J1953; J2060; J2150; J2250; J2270; J2370; J2405; J2543; J2765; J2997; J3010; J3370; J3475; J3480; J7030; J7040; J7042; J7050; J7070; J7120; P9016; P9045; P9047; Q9967

== ENCOUNTER → 2017-08-22 | Outpatient (CLI) | payer OTHER ==
[~2017-08-22] MED LIST changes: +ASPI81TA11 PO; +BACL10TA; +BACL10TA PO; +CITA20TA4; +CITA20TA4 PO; +DICL1GEL7; +DOCU100C PO; +FERR325T8; +FERR325T8 PO; +FLUT1SPR5 EACH NARE; +FLUT50SP; +HYDR-3516; +HYDR-3516 PO; +LEVE500T8; +LEVE500T8 PO; -NORMOSOL R INJ 1,000 ML IV ONE; +ONDA1TAB16; -ONDANSETRON HCL 4 MG/2 ML VIAL IV PUSH ONE; +PANT40TA3; +PANT40TA3 PO; -PROPOFOL 200 MG/20 ML AMP IV ONE; +SUCR1TAB; +SUCR1TAB PO; +WARF-21; +WARF-21 PO; +WARF-22; +WARF-22 PO
[2017-08-22 16:32] LABS: INTERNATIONAL NORMALIZED RATIO 1.7 RATIO; PROTHROMBIN TIME - PATIENT 18.8 SEC (9.8-11.6)
== END ==
LOC: CLAB 15:26
DX: Z79.01 Long term (current) use of anticoagulants (principal)
CPT/HCPCS: 36415; 85610

== ENCOUNTER → 2017-09-12 | Outpatient (CLI) | payer OTHER ==
[2017-09-12 09:16] LABS: INTERNATIONAL NORMALIZED RATIO 2.6 RATIO; PROTHROMBIN TIME - PATIENT 30.1 SEC (9.8-11.6)
== END ==
LOC: CLAB 08:30
PROVIDERS: ATTEND Family Medicine
DX: Z86.73 Personal history of transient ischemic attack (TIA), and cerebral infarction without residual deficits (principal)
CPT/HCPCS: 36415; 85610

== ENCOUNTER 2017-09-16 08:47 | Day surgery (SDC) | payer OTHER ==
[2017-09-16] VITALS (12 sets, daily range): BP systolic 140–161; BP diastolic 57–100; PULSE 65–99; RESP 16; TEMP 98.1–99; O2SAT 95–98
[~2017-09-16] VITALS: Ht 157.5 cm; Wt 61.7 kg
[~2017-09-16 08:47] MED LIST changes: -ASPI81TA11 PO; -BACL10TA PO; -CITA20TA4 PO; -DOCU100C PO; -FERR325T8 PO; -FLUT1SPR5 EACH NARE; -HYDR-3516 PO; -LEVE500T8 PO; -PANT40TA3 PO; -SUCR1TAB PO; -WARF-21 PO; -WARF-22 PO
[2017-09-16] MEDS ORDERED: BACL10TA PO (10:39)
[2017-09-16] MEDS ORDERED: SODIUM CHLORID 0.9% 500 ML IV PRN (10:45)
[2017-09-16] MEDS ORDERED: CHLORHEXIDINE GLUCONATE 2 % 1 PACK (2 CLOTHS) TOPICAL PRN (10:45)
[2017-09-16] MEDS ORDERED: INSULIN HUMAN REGULAR 1,000 UNITS/10 ML VIAL SQ PRN (10:45)
[2017-09-16] MEDS ORDERED: METOPROLOL TARTRATE 25 MG TAB PO PRN (10:45)
[2017-09-16] MEDS ORDERED: LACTATED RINGER'S 1000 ML IV PRN (10:45)
[2017-09-16] MEDS ORDERED: POVIDONE IODINE 5% (ANTISEPSIS KIT) 4 APPLICATIONS EACH NARE PRN (10:45)
[2017-09-16] MEDS ORDERED: SUCR1TAB PO (10:53)
[2017-09-16] MEDS ORDERED: LEVE500T8 PO (10:53)
[2017-09-16] MEDS ORDERED: FERR325T8 PO (10:53)
[2017-09-16] MEDS ORDERED: CITA20TA4 PO (10:53)
[2017-09-16] MEDS ORDERED: HYDR-3516 PO (10:53)
[2017-09-16] MEDS ORDERED: FLUT1SPR5 EACH NARE (10:53)
[2017-09-16] MEDS ORDERED: DOCU100C PO (10:53)
[2017-09-16] MEDS ORDERED: PANT40TA3 PO (10:53)
[2017-09-16] MEDS ORDERED: WARF-21 PO (10:53)
[2017-09-16] MEDS ORDERED: WARF-22 PO (10:53)
[2017-09-16 11:15] LABS: INTERNATIONAL NORMALIZED RATIO 2.9 RATIO
[2017-09-16 11:24] LABS: AUTOMATED NEUTROPHIL # 4.3 TH/MM3 (1.8-7.7); BASOPHIL % 0.3 % (0.0-2.0); EOSINOPHIL # 0.2 TH/MM3 (0-0.4); EOSINOPHIL % 2.9 % (0.0-4.0); HEMATOCRIT 32.4 % (35.0-46.0); HEMO FLAGS DIFF FINAL; LYMPH % 20.4 % (9.0-44.0); LYMPHOCYTE # 1.3 TH/MM3 (1.0-4.8); MEAN CELL VOLUME 91.1 FL (80.0-100.0); MEAN CORPUSCULAR HEMOGLOBIN 30.2 PG (27.0-34.0); MEAN CORPUSCULAR HGB CONC 33.2 % (32.0-36.0); MONO % 9.7 % (0.0-8.0); NEUT % 66.7 % (16.0-70.0); PLATELET COUNT 398 TH/MM3 (150-450); RED BLOOD COUNT 3.55 MIL/MM3 (4.00-5.30); RED CELL DISTRIBUTION WIDTH 13.9 % (11.6-17.2); WHITE BLOOD COUNT 6.5 TH/MM3 (4.0-11.0)
[2017-09-16 11:45] LABS: ANION GAP 3 MEQ/L (5-15); BLOOD UREA NITROGEN 8 MG/DL (7-18); CHLORIDE 106 MEQ/L (98-107); GLOMERULAR FILTRATION RATE 123 ML/MIN (>89); POTASSIUM 3.2 MEQ/L (3.5-5.1); SODIUM (NA) 140 MEQ/L (136-145)
[2017-09-16 11:48] LABS: BETA HCG QUANT LESS THAN 1 MIU/ML (0-5)
[2017-09-16] MEDS ORDERED: HEPARIN-NS/PF INJ 1,000 ML ONE (12:19)
[2017-09-16] MEDS ORDERED: MIDAZOLAM HCL 2 MG/2 ML VIAL ONE (12:20)
[2017-09-16] MEDS ORDERED: HEPARIN SODIUM - IV 10,000 UNITS/10 ML VIAL ONE (13:16)
[2017-09-16] MEDS ORDERED: ceFAZolin INJ 1,000 MG VIAL ONE (13:46)
[2017-09-16] MEDS ORDERED: ACETAMINOPHEN 325 MG TAB PO PRN (14:15)
--- NOTE | 2017-09-16 14:19 | CATHPROC ---
Glow HIS Report Study Information Study Number Admission Scheduled Start Study Start [id number] Sep 16 2017 8:47AM 09/16/2017 Sep 16 2017 10:27AM Admit Source Facility Department Other [facility] Physician and Clinical Staff Initial Fish Singh Conveyor Tender Srinivas Wu,CLAY Additional Bertin Elkins Recorder Rizwan Maldonado,RT(R) Scrub Mickey Chung RCIS(BS) Procedures Performed Procedure Location (Site) Vessel Name ICE CATHETER INSERT RA Atruim Wire insertion Fem Vein (right) Femoral Vein Equipment Time Administrative Clerk Description Size Mfg Part Number Used/Scraped PERCLOSE, PRO GLIDE CLOSER 13:44 [employer] FR 6 [id number] *[id number] Used DEVICE PERCLOSE, PRO GLIDE CLOSER 13:44 [employer] FR 6 [address]7877 *[id number] Used DEVICE AMPLATZER [employer] [id number] 12:36 GUIDEWIRE, SUPERSTIFF 260CM Used 2can. *[id number] [employer]PL[employer] 13:36 SEPTAL OCCLUDER, 25MM FR12 [id number] Used 2can. AMPL[employer]ER [employer]ICAL 13:21 SEPTAL OCCLUDER, 30MM FR12 [id number] Used 2can. AMPLATZER MEDICAL SYSTEM, FR9 TORQUE DELIV 13:18 FR9 [id number] Used 2can. 80CM TRANSDUCER, TRUWAVE [id number] 12:20 IVEY DUQUE * Used W/STOCKCOCK *[id number] MPIS-502-10.0- INTRODUCER SET, 12:20 [employer]. FR 5 SC-NT-U-SST Used MICROPUNCTURE, STIFFENED *[id number] MPIS-502-10.0- INTRODUCER SET, 12:25 [employer]. FR 5 SC-NT-U-SST Used MICROPUNCTURE, STIFFENED *[id number] *[id number] *[id number] 13:42 CORDIS/PACER SHEATH, FR9 BOBBY 11CM FR 9 [id number] Used [id number] 12:20 TRUSTe PACK, CCL CUSTOM * Used *[id number] 12:20 Guides[employer]ob MEDICAL WIRE, 3MMJ .035 180CM 180CM Used *[id number] 12:20 NAMIC MANIFOLD, 4 PORT * Used *[id number] 12:20 NYCOMED OMNIPAQUE, 350 MG, 150ML 150ML [id number] Used [id number] 12:20 OLLA [employer] BLANKET,WARM AIR CCL * Used *[id number] CATHETER, ACUNAV FR10 ICE [id number] 13:10 SHAKIRA FR 10 Used (SHAKIRA) *[id number] 13:08 TERUMO MEDICAL SHEATH, FR6 TERUMO (10CM) FR 6 Used *[id number] TER[employer]O [employer]ICAL 12:36 SHEATH, FR11 TURUMO FR 11 [id number] Used COMPANY Equipment Model, Serial, Lot Number and Expiration Data Description Model Number Serial Number Lot Number Expiration Date INTRODUCER SET, [id number] 08-11-2020 MICROPUNCTURE, STIFFENED SEPTAL OCCLUDER, 25MM [id number] 06-27-2021 History: Allergies Allergy Reaction Shellfish shellfish derived kiwi History: Risk Factors Family History of Hypertension Dyslipidemia Previous OR Previous Heart Failure Premature CAD No No No No No Prior Valve Prior PCI Prior CABG Surgery No No No Cerebrovascular Peripheral Artery Chronic Lung On Dialysis Diabetes Disease Disease Disease No Yes No No No Labs Hgb (g/dl) Hct (%) RBC (MIL/MM3) WBC (l/cumm) Platelets (thousands) 11.60-17.00 35.00-51.00 4.00-5.90 4.00-11.00 150.00-450.00 10.7 32.4 3.5 6.5 398 Glucose (mg/dl) BUN (mg/dl) Creatinine (mg/dl) BUN:Creatinine (1:x) 74.00-106.00 7.00-18.00 0.50-1.30 10.00-20.00 82 8 0.5 16 Na (meq/l) K (meq/l) Cl (meq/l) Ca (mg/dl) 136.00-145.00 3.50-5.10 98.00-107.00 8.50-10.10 140 3.2 106 8.8 PT (sec) INR (PTT:PT) 9.80-11.60 0.90-1.10 33 2.9 CPK-MB (ng/ML) 0.50-3.60 Not Drawn Medication Medication Total Dose (Bolus/Oral) Medication Total Dosage/Unit 1% XYLOCAINE 20 mL FENTANYL 200 mcg HEPARIN 3000 units VERSED 2 mg Medications (Bolus/Oral) Medication Time Given Dosage/Unit Administered By Reason 09/16/2017 12:54:42 VERSED 1 mg Srinivas Wu PM 1 mg VERSED given in lab by Srinivas Wu RN in Right Forearm via Peripheral IV. Ordered by Fish Sanford. 09/16/2017 12:55:28 FENTANYL 50 mcg Srinivas Wu PM 50 mcg FENTANYL given in lab by Srinivas Wu RN in Right Forearm via Peripheral IV. Ordered by Fish Hall. 1% XYLOCAINE 09/16/2017 1:00:25 PM 20 mL Fish Osei 20 mL 1% XYLOCAINE given in lab by Fish Osei in Right Groin via Subcutaneous. Ordered by Fish Vick. VERSED 09/16/2017 1:13:10 PM 1 mg Srinivas Wu 1 mg VERSED given in lab by Srinivas Wu RN in Right Forearm via Peripheral IV. Ordered by Fish Sanford. FENTANYL 09/16/2017 1:13:56 PM 25 mcg Srinivas Wu 25 mcg FENTANYL given in lab by Srinivas Wu RN in Right Forearm via Peripheral IV. Ordered by Fish Hall. HEPARIN 09/16/2017 1:17:30 PM 3000 units Srinivas Wu Patient arrived on 3000 units HEPARIN given by Srinivas Wu RN in Right Forearm via Peripheral IV. Ordered by Fihs Osei. FENTANYL 09/16/2017 1:21:05 PM 25 mcg Srinivas Wu Patient arrived on 25 mcg FENTANYL given by Srinivas Wu RN in Right Forearm via Peripheral IV. Or dered by Fish Osei. FENTANYL 09/16/2017 1:29:53 PM 50 mcg Srinivas Wu Patient arrived on 50 mcg FENTANYL given by Srinivas Wu RN in Right Forearm via Peripheral IV. Or dered by Fish Osei. FENTANYL 09/16/2017 1:40:31 PM 50 mcg Srinivas Wu Patient arrived on 50 mcg FENTANYL given by Srinivas Wu RN in Right Forearm via Peripheral IV. Or dered by Fish Osei. Medication (Drip) Medication Time Given Dosage/Unit Concentration/Unit Diluent (ml) Solution 09/16/2017 12:19:27 IV Solutions 0 mL (IV) 500 NaCl .9 PM Patient arrived on IV Solutions given by Fish Osei in Right Forearm via Peripheral IV. Pump/D rip Flow = 20 ml/hr using NaCl .9. Ordered by Fish Osei. Initial Case Assessment Cardiovascular HR Rhythm NIBP Chest Pain 75 sr 153/98 0 Edema Present Skin color Skin None Normal Warm Dry Circulatory - Right Pulses Dorsalis Pedis Femoral 3 3 Scale (0,1,2,3,4,d) Circulatory - Left Pulses Dorsalis Pedis Femoral 3 3 Scale (0,1,2,3,4,d) Neurological State Oriented to time-place- Alert Moves all extremities person Respiration - General Respiration Rate SpO2 (%) O2 (lpm) (B/min) 18 98 0 Chronological Log Time Study Chronological Log 12:01:20 Patient arrived via Bed. 12:01:21 Patient Name, D.O.B, / Armband Verified By R.N. 12:01:23 Consent signed by the physician and the patient and verified by the [facility] staff. 12:01:24 Pre-op and post- op instructions given; patient acknowledges understanding of instructions. 12:02:33 Verbal Stimulation=2 Physical Stimulation=2 Airway=2 Respiration=2 TOTAL=8. (0=absent, 1=li mited, 2=present) 12:02:44 Presedation assessment performed by [facility] RN. 12:02:45 Patient has been NPO for More than 6Hrs. 12:02:47 Skin Breakdown-none present per patient. Vitals capture started with the following parameters, Patient=Adult, Interval=5 min, Initial Pr ncavry=804 mmHg, 12:14:18 Deflation Rate=5 mmHg 12:14:53 HR=73 bpm, CAXV=790/92 mmhg, Resp=14 B/min, Klein=2 12:19:18 A # 20 IV was noted in the Forearm (right). Grade = 0 Patient arrived on IV Solutions given by Fish Osei in Right Forearm via Peripheral IV. Pump/Drip Flow = 20 12:19:27 ml/hr using NaCl .9. Ordered by Fish Osei. 12:19:54 ZP=494 bpm, VBGW=752/98 mmhg, Resp=13 B/min, Klein=2 12:19:59 History and physical on the chart or being dictated. Assessment: Initial Case, HR=75 BPM, Rhythm=sr, VOAN=692/98 mmhg, Chest Pain=0, Edema=None, Col or=Normal, Skin = Warm, Dry Right Pulses: Mook Ped=3, Femoral=3 12:20:38 Left Pulses: Mook Ped=3, Femoral=3 Neurological: State=Alert, Ox3, ROSARIO Respiration: Resp=18 B/min, SpO2=98 %, O2=0 lpm 12:24:32 Reference ECG taken 12:24:55 HR=70 bpm, LOLL=794/94 mmhg, SpO2=96.0 %, Resp=21 B/min, Klein=2 12:29:56 HR=68 bpm, KJJU=109/92 mmhg, SpO2=95.0 %, Resp=20 B/min, Klein=2 12:34:47 Bilateral groins prepped with 2% chlorhexidine, and draped after a 3 minute waiting time. 12:34:53 HR=72 bpm, OHDF=115/97 mmhg, SpO2=97.0 %, Resp=12 B/min, Klein=2 12:39:57 HR=71 bpm, TSMB=046/95 mmhg, SpO2=94.0 %, Resp=21 B/min, Klein=2 12:45:28 HR=70 bpm, PLCL=257/90 mmhg, SpO2=95.0 %, Resp=21 B/min, Klein=2 12:49:57 HR=73 bpm, JUJV=975/95 mmhg, SpO2=96.0 %, Resp=30 B/min, Klein=2 12:54:42 1 mg VERSED given in lab by Srinivas Wu, RN in Right Forearm via Peripheral IV. Ordered by Fish Osei. 12:54:58 HR=73 bpm, TRFK=484/93 mmhg, SpO2=95.0 %, Resp=16 B/min 12:54:59 MD arrived. 12:55:09 Pressure channel 1 zeroed. 12:55:28 50 mcg FENTANYL given in lab by Srinivas Wu, CLAY in Right Forearm via Peripheral IV. Orde red by Fish Osei. Time Out. Correct patient, correct procedure, correct physician, power injector not loaded with contrast with surgical 12::57 team present. Time Out Concurred by MD and individual staff in procedure. 12:59:57 HR=69 bpm, FUCO=407/94 mmhg, SpO2=99.0 %, Resp=18 B/min 13:00:13 Presedation re-assessment performed by [facility] RN. 13:00:15 Case Start 13:00:16 Verbal Stimulation=2 Physical Stimulation=2 Airway=2 Respiration=2 TOTAL=8. (0=absent, 1=li mited, 2=present) 20 mL 1% XYLOCAINE given in lab by Fish Osei in Right Groin via Subcutaneous. Ordered b y Farnaz, 13:00:25 Fish. 13:01:15 Access site was Right Femoral Vein. A INTRODUCER SET, MICROPUNCTURE, STIFFENED FR 5 was advanced into the Fem Vein (right) using e 13:01:50 Percutaneous technique. 13:03:58 A WIRE, 3MMJ .035 180CM 180CM was inserted via Fem Vein (right). 13:04:51 Access site was Right Femoral Vein. 13:04:58 HR=67 bpm, NMMA=289/98 mmhg, SpO2=96.0 %, Resp=21 B/min, Klein=2 A INTRODUCER SET, MICROPUNCTURE, STIFFENED FR 5 was advanced into the Fem Vein (right) using th e 13:05:04 ~TECHNIQUE~ technique. A SHEATH, FR6 TERUMO (10CM) FR 6 was advanced into the Fem Vein (right) using the Percutaneous technique. 13:05:55 25cm 11french sheath Terumo [id number] 13:08:17 A SHEATH, FR6 TERUMO (10CM) FR 6 was advanced into the Fem Vein (right) using the Percutane ous technique. 13:09:55 HR=67 bpm, OQRE=484/93 mmhg, SpO2=96.0 %, Resp=15 B/min, Klein=2 13:11:20 CATHETER, ACUNAV FR10 ICE (SHAKIRA) FR 10 Was Postioned. 13:13:10 1 mg VERSED given in lab by Srinivas Wu RN in Right Forearm via Peripheral IV. Ordered by Fish Osei. 13:13:56 25 mcg FENTANYL given in lab by Srinivas Wu RN in Right Forearm via Peripheral IV. Orde red by Fish Osei. 13:14:58 HR=66 bpm, IQRW=782/100 mmhg, SpO2=94.0 %, Resp=27 B/min, Klein=2 A MPA-2 INFINITI CATHETER FR 5 was advanced over a wire. OMNIPAQUE, 350 MG, 150ML 150ML was use d for 13:15:14 injections. 13:15:38 A GUIDEWIRE, SUPERSTIFF 260CM was inserted via Fem Vein (right). Patient arrived on 3000 units HEPARIN given by Srinivas Wu RN in Right Forearm via Peripher al IV. Ordered by Mccall- 13:17:30 EduardoFish santana. A SYSTEM, FR9 TORQUE DELIV 80CM FR9 was exchanged in the Fem Vein (right). This was necessary i n order to 13:19:02 accomodate a larger catheter. 13:19:57 HR=75 bpm, YOQJ=346/99 mmhg, SpO2=95.0 %, Resp=14 B/min, Klein=2 Patient arrived on 25 mcg FENTANYL given by Srinivas Wu RN in Right Forearm via Peripheral IV. Ordered by Mccall- 13:21:05 Fish Clark. 13:22:36 30mm Septal Occluder inserted in delivery sheath. 13:24:56 HR=87 bpm, IYPD=212/105 mmhg, SpO2=95.0 %, Resp=13 B/min, Klein=2 13:25:51 Deploying 30mm Septal Occluder at this time. Patient arrived on 50 mcg FENTANYL given by Srinivas Wu RN in Right Forearm via Peripheral IV. Ordered by Mccall- 13:29:53 Fish Clark. 13:30:30 HR=81 bpm, PLDH=700/96 mmhg, SpO2=90.0 %, Resp=15 B/min, Klein=2 13:31:24 Retrieving 30mm Septal Occluder. Not deployed. 13:34:42 25mm Septal Occluder inserted in Delivery Sheath. 13:35:33 Deploying 25mm Septal Occluder 13:35:35 HR=66 bpm, OXDA=110/99 mmhg, SpO2=89.0 %, Resp=10 B/min, Klein=2 13:37:49 25mm Septal Occluder deployed. 13:40:01 HR=71 bpm, OXXB=632/94 mmhg, SpO2=92.0 %, Resp=11 B/min, Klein=2 13:40:24 ICE Catheter was removed Patient arrived on 50 mcg FENTANYL given by Srinivas Wu RN in Right Forearm via Peripheral IV. Ordered by Gretta 13:40:31 Fish Clark. A SHEATH, FR9 BOBBY 11CM FR 9 was exchanged in the Fem Vein (right). This was necessary in ord er to achieve 13:42:00 vascular hemostasis. 9 danish delivery sheath exchanged for short 9fr sheath A SHEATH, FR11 TURUMO FR 11 was exchanged in the Fem Vein (right). This was necessary in order ~REASON~. 13:43:00 11fr 25cm sheath exchanged for 11fr short sheath 13:44:58 HR=78 bpm, QPCU=145/96 mmhg, SpO2=88.0 %, Resp=18 B/min, Klein=2 13:50:11 PERCLOSE, PRO GLIDE CLOSER DEVICE FR 6 placement in the Fem Vein (right)11 fr sheath 13:50:40 HR=78 bpm, VBBI=489/98 mmhg, SpO2=90.0 %, Resp=15 B/min, Klein=2 13:52:17 PERCLOSE, PRO GLIDE CLOSER DEVICE FR 6 placement in the Fem Vein (right) 9fr sheath 13:55:02 HR=80 bpm, IXRB=613/99 mmhg, SpO2=92.0 %, Resp=23 B/min, Klein=2 13:55:51 Case End 13:56:32 Sterile dressing applied to site 13:56:34 No case complications noted. 13:56:35 Cine recording checked. 13:56:37 Bedside Report will be given. 13:58:38 Implantable Device card placed in patient's chart. 14:00:04 HR=81 bpm, PAAA=606/96 mmhg, SpO2=92.0 %, Resp=18 B/min, Klein=2 14:03:24 Vitals capture stopped. 14:03:58 [facility] - Cont[facility] Media Used In Study Contrast Total Opened (mL) Total Used (mL) Total Wasted (mL) Omnipaque 0 0 0 End Study - Maximum Contrast Load Max Contrast Load (mL) 564.1 End Study - Radiation Exposure Fluoro Time (minutes) 17.8 End Study - Patient Disposition Complications Transferred To No Critical Care Bed
--- NOTE | 2017-09-16 14:33 | MA ---
cc: MIGUELINA GALAN DATE: 09/16/2017. PROCEDURE PERFORMED: Percutaneous PFO closure. Quoter: Dr. Miguelina Galan Center Lead Consultant: Dr. Denton Minor INDICATIONS FOR THE PROCEDURE: Cryptogenic stroke, recurrent TIAs, evidence of PFO with [id number] shunt on echocardiogram. POSTPROCEDURE DIAGNOSES: Successful PFO closure with a 25 mm Amplatz device. DESCRIPTION OF THE PROCEDURE IN DETAIL: Once consent was signed, the patient was brought into the cardiac lab rn in fasting state. Her groin was prepped and draped in sterile fashion using 1% lidocaine for local anesthesia and a micropuncture kit. A long 11-Dominican sheath was put in the right femoral vein as well as a 6-Dominican sheath then intracardiac ultrasound was inserted and positioned in the right atrium under fluoroscopic guidance and images of the PFO were obtained. This was followed by insertion of a multipurpose diagnostic catheter over the wire that was positioned in the intraatrial septum followed by advancing the 0.05 wire through the PFO and positioning the pulmonary vein. The multipurpose catheter then was positioned over the wire into the pulmonary vein. Then the J wire was exchanged for a stiff Amplatz wire and the 6-Dominican sheath was exchanged for a delivery sheath of the Amplatz device. A 25 mm 25 mm Amplatz device was prepared on the table and secured into the delivery device. This was followed by insertion of the delivery sheath into the right atrium and the left atrium followed by deployment under fluoroscopy and intracoronary echocardiogram guidance in the PFO. Final echocardiogram views showed successful deployment of the device and after confirmation of position of the device, it was released from the delivery system. The patient tolerated the procedure well without complications. The estimated blood loss was less than 30 cc. Total contrast used was - none. The two sheaths were closed with the Perclose devices. CONCLUSIONS: Successful PFO closure with a 25 mm Amplatz device. RECOMMENDATIONS: 1. The patient will be admitted for observation overnight. 2. Home medications will be continued. 3. IV antibiotics x 3 doses. 4. Continue anticoagulation. 5. Chest x-ray in the morning Miguelina Galan MD, MPH, FACC SLEEP LAB TECHNICIAN/JCC /1:56 PM /2:17 PM SERGE
[2017-09-16] MEDS: ACETAMINOPHEN/HYDROcodone 325 MG/5 MG TAB PO PRN ×2 (14:52→18:48)
[2017-09-16] MEDS: CYCLOBENZAPRINE HCL 10 MG TAB PO SCH (16:31)
[2017-09-16] MEDS: FERROUS SULFATE 325 MG (65 MG ELEMENTAL IRON) TAB PO SCH (17:22)
[2017-09-16] MEDS: BACLOFEN 10 MG TAB PO SCH (17:22)
[2017-09-16] MEDS ORDERED: KETOROLAC TROMETHAMINE 30 MG/ML (IVP) VIAL IM ONE (19:00)
[2017-09-16] MEDS ORDERED: SUCRALFATE 1 GM TAB PO SCH (20:00)
[2017-09-16] MEDS: FLUTICASONE PROPIONATE 50 MCG/ACT 16 GM NASAL SPRAY EACH NARE SCH (21:01)
[2017-09-16] MEDS: PANTOPRAZOLE SOD 40 MG DELAYED RELEASE TAB PO SCH (21:02)
[2017-09-16] MEDS: levETIRAcetam 500 MG TAB PO SCH (21:02)
[2017-09-16] MEDS: DOCUSATE SODIUM 100 MG CAP PO SCH (21:02)
[2017-09-16] MEDS: ceFAZolin 2 GM PREMIX 50 ML IV SCH (21:03)
[2017-09-17] VITALS (15 sets, daily range): BP systolic 138–165; BP diastolic 83–90; PULSE 65–90; RESP 16–18; TEMP 97.5–98.9; O2SAT 94–96
[2017-09-17] MEDS: ceFAZolin 2 GM PREMIX 50 ML IV SCH ×2 (06:07→12:14)
[2017-09-17] MEDS: ACETAMINOPHEN/HYDROcodone 325 MG/5 MG TAB PO PRN (06:07)
--- NOTE | 2017-09-17 07:50 | HHI.DS ---
Discharge Summary Admission Date Admitting Diagnosis Procedures PFO Closure Brief History 42 y/o F with hx of cryptogenic stroke, PFO with ASA admitted for PFO Closure CBC/BMP: 09/16/17 1040 09/16/17 1040 Significant Findings Laboratory Tests Test 09/16/17 09:55 09/16/17 10:40 Prothrombin Time 33.0 SEC (9.8-11.6) Red Blood Count 3.55 MIL/MM3 (4.00-5.30) Hemoglobin 10.7 GM/DL (11.6-15.3) Hematocrit 32.4 % (35.0-46.0) Monocytes (%) (Auto) 9.7 % (0.0-8.0) Potassium Level 3.2 MEQ/L (3.5-5.1) Anion Gap 3 MEQ/L (5-15) PE at Discharge GENERAL: Well-nourished, well-developed patient. SKIN: Warm and dry. HEAD: Normocephalic. EYES: No scleral icterus. No injection or drainage. NECK: Supple, trachea midline. No JVD or lymphadenopathy. CARDIOVASCULAR: Regular rate and rhythm without murmurs, gallops, or rubs. RESPIRATORY: Breath sounds equal bilaterally. No accessory muscle use. GASTROINTESTINAL: Abdomen soft, non-tender, nondistended. EXTREMITIES: No cyanosis, or edema. NEUROLOGICAL: Awake, alert, and oriented x 3. Hospital Course Ms. Toledo underwent successful percutaneous closure of PFO with a 25mm Amplatz Device thru the left femoral vein. The procedure was guided by Fluoroscopy and ICE. No Complications. Pt Condition on Discharge: Good Discharge Disposition: Discharge Home Discharge Instructions DIET: Follow Instructions for: As Tolerated, No Restrictions Speech Therapy-Diet Recommenda: Regular Activities you can perform: Regular-No Restrictions Continued Medications: Baclofen (Baclofen) 10 Mg Tab 10 MG PO TID for Muscle Spasm, TAB 0 Refills Citalopram (Citalopram) 20 Mg Tab 20 MG PO DAILY for Control Depression, TAB 0 Refills Docusate Sodium (Docusate Sodium) 100 Mg Cap 100 MG PO BID for Prevent Constipation, CAP 0 Refills Ferrous Sulfate (Ferrous Sulfate) 325 Mg (65 Mg Iron) Tablet 325 MG PO BIDPC for Nutritional Supplement, TAB 0 Refills Fluticasone Nasal [place] (Flonase Nasal [place]) 50 Mcg/Act [place] 50 MCG EACH NARE BID for Allergies, BOTTLE 0 Refills Hydrocodone-Acetaminophen (Hydrocodone-Acetaminophen) 5-325 mg Tab 1 TAB PO Q4H PRN for PAIN, TAB 0 Refills Levetiracetam (Levetiracetam) 500 Mg Tab 500 MG PO BID for Control Seizures, TAB 0 Refills Pantoprazole (Pantoprazole) 40 Mg Tab 40 MG PO BID for Reflux, TAB 0 Refills Sucralfate (Sucralfate) 1 Gram Tab 1 GM PO DAILY@1999 for Duodenal ulcer, #120 TAB 0 Refills on empty stomach Warfarin (Warfarin) 10 Mg Tab 10 MG PO WEEKLY for Blood Clot Prevention, TAB 0 Refills Warfarin (Warfarin) 7.5 Mg Tab 7.5 MG PO DAILYEXCEPTMONDAY for Blood Clot Prevention, TAB 0 Refills Fish Osei MD Sep 17, 2017 07:50
[2017-09-17] MEDS ORDERED: CITALOPRAM HYDROBROMIDE 20 MG TAB PO SCH (09:00)
[2017-09-17] MEDS ORDERED: ASPIRIN EC 325 MG TABEC PO SCH (09:00)
--- NOTE | 2017-09-17 09:07 | PD.CARD.PN ---
Subjective Subjective Remarks no complaints no overnight events Objective Medications Current Medications Medications (Trade) Dose Ordered Sig/Elida Route Start Time Stop Time Status Last Admin Lactated Ringer's 1,000 ml @ 30 mls/hr Q24H PRN IV 09/16/17 10:45 09/19/17 10:44 Sodium Chloride 500 ml @ 30 mls/hr [id number] PRN IV 09/16/17 10:45 09/19/17 10:44 (Lopressor) 25 mg BANQUET LINE COOK PRN PO 09/16/17 10:45 09/19/17 10:44 (Betadine 5% Antisepsis Kit) 1 applic BANQUET LINE COOK PRN EACH NARE 09/16/17 10:45 09/19/17 10:44 (Chlorhexidine 2% Cloth) 3 pack BANQUET LINE COOK PRN TOPICAL 09/16/17 10:45 09/19/17 10:44 (NovoLIN R INJ) See Protocol Table ... BANQUET LINE COOK PRN SQ 09/16/17 10:45 09/19/17 10:44 Cefazolin Sodium/ Dextrose 50 ml @ 100 mls/hr Q8H IV 09/16/17 21:00 09/17/17 13:29 09/17/17 06:07 (Tylenol) 650 mg Q4H PRN PO 09/16/17 14:15 (Lioresal) 10 mg TID PO 09/16/17 18:00 09/16/17 17:22 (CeleXA) 20 mg DAILY PO 09/17/17 09:00 (Colace) 100 mg BID PO 09/16/17 21:00 09/16/17 21:02 (Ferrous Sulfate) 325 mg BIDPC PO 09/16/17 18:00 09/16/17 17:22 (Jackson 5-325 Mg) 1 tab Q4H PRN PO 09/16/17 14:15 09/17/17 06:07 (Keppra) 500 mg BID PO 09/16/17 21:00 09/16/17 21:02 (Protonix) 40 mg BID PO 09/16/17 21:00 09/16/17 21:02 (Carafate) 1 gm DAILY@2000 PO 09/16/17 20:00 09/16/17 21:13 (Coumadin) 7.5 mg DAILY@1600 PO 09/17/17 16:00 (Flonase Hever Spr) 1 spray BID EACH NARE 09/16/17 21:00 09/16/17 21:01 (Flexeril) 10 mg TID PO 09/16/17 18:00 09/16/17 16:31 (Ecotrin Ec) 325 mg DAILY PO 09/17/17 09:00 Vital Signs / I&O Vital Signs Date Time Temp Pulse Resp B/P (MAP) Pulse Ox O2 Delivery O2 Flow Rate FiO2 09/17/17 08:00 68 09/17/17 07:00 97.5 78 16 139/90 (106) 95 09/17/17 07:00 80 09/17/17 06:13 98.3 84 16 165/90 (115) 94 09/17/17 06:00 76 09/17/17 05:00 88 09/17/17 04:00 72 09/17/17 03:00 65 09/17/17 02:00 68 09/17/17 01:00 80 09/17/17 00:30 98.9 80 16 139/83 (101) 96 09/17/17 00:00 66 09/16/17 23:00 66 09/16/17 22:00 84 09/16/17 21:00 84 09/16/17 20:05 99.0 88 16 140/89 (106) 95 09/16/17 20:00 88 09/16/17 19:00 84 09/16/17 18:00 99 09/16/17 17:00 79 09/16/17 16:00 82 09/16/17 15:15 98.1 89 16 161/100 (120) 95 09/16/17 15:00 76 09/16/17 10:00 65 16 158/57 (90) 98 I/O 09/16/17 09/16/17 09/16/17 09/17/17 09/17/17 09/17/17 07:00 15:00 23:00 07:00 15:00 23:00 Intake Total 290 ml 510 ml Output Total 0 ml Balance 290 ml 510 ml Intake Oral 240 ml 460 ml IV Total 50 ml 50 ml Output Stool Total 0 ml # Voids 1 3 Physical Exam GENERAL: Well-nourished, well-developed patient. SKIN: Warm and dry. HEAD: Normocephalic. EYES: No scleral icterus. No injection or drainage. NECK: Supple, trachea midline. No JVD or lymphadenopathy. CARDIOVASCULAR: Regular rate and rhythm without murmurs, gallops, or rubs. RESPIRATORY: Breath sounds equal bilaterally. No accessory muscle use. GASTROINTESTINAL: Abdomen soft, non-tender, nondistended. EXTREMITIES: No cyanosis, or edema. NEUROLOGICAL: Awake, alert, and oriented x 3. Non-focal. Laboratory Laboratory Tests Test 09/16/17 09:55 09/16/17 10:40 Prothrombin Time 33.0 SEC Prothromb Time International Ratio 2.9 RATIO White Blood Count 6.5 TH/MM3 Red Blood Count 3.55 MIL/MM3 Hemoglobin 10.7 GM/DL Hematocrit 32.4 % Mean Corpuscular Volume 91.1 FL Mean Corpuscular Hemoglobin 30.2 PG Mean Corpuscular Hemoglobin Concent 33.2 % Red Cell Distribution Width 13.9 % Platelet Count 398 TH/MM3 Mean Platelet Volume 7.5 FL Neutrophils (%) (Auto) 66.7 % Lymphocytes (%) (Auto) 20.4 % Monocytes (%) (Auto) 9.7 % Eosinophils (%) (Auto) 2.9 % Basophils (%) (Auto) 0.3 % Neutrophils # (Auto) 4.3 TH/MM3 Lymphocytes # (Auto) 1.3 TH/MM3 Monocytes # (Auto) 0.6 TH/MM3 Eosinophils # (Auto) 0.2 TH/MM3 Basophils # (Auto) 0.0 TH/MM3 CBC Comment DIFF FINAL Differential Comment Blood Urea Nitrogen 8 MG/DL Creatinine 0.54 MG/DL Random Glucose 82 MG/DL Calcium Level 8.8 MG/DL Sodium Level 140 MEQ/L Potassium Level 3.2 MEQ/L Chloride Level 106 MEQ/L Carbon Dioxide Level 31.0 MEQ/L Anion Gap 3 MEQ/L Estimat Glomerular Filtration Rate 123 ML/MIN Human Chorionic Gonadotropin, Quant LESS THAN 1 MIU/ML Assessment and Plan Problem List: (1) PFO (patent foramen ovale) ICD Codes: Q21.1 - Atrial septal defect Status: Resolved Plan: s/p Closure PFO Doing well this am No complaints After discussion with Dr. Gomez (Neurology). She will continue on Coumadin. Will add ASA 81mg PO daily. She will follow up with Neurology and Neurosurgery Follow up with me in 1 week. (2) CVA (cerebral vascular accident) ICD Codes: I63.9 - Cerebral infarction, unspecified Status: Acute Fish Osei MD Sep 17, 2017 09:07
--- NOTE | 2017-09-17 09:35 | RADRPT ---
EXAM DATE/TIME: 09/17/2017 09:14 [place] COMPARISON: CHEST SINGLE AP, May 14, 2017, 8:35. INDICATIONS : Cardiomyopathy. Post PFO closure. MEDICAL HISTORY : Stroke. SURGICAL HISTORY : Craniotomy. ENCOUNTER: Initial ACUITY: 1 day PAIN SCORE: 0/10 LOCATION: Bilateral chest FINDINGS: The heart size is normal. There is increased density at the left base. The right lung is clear. No ef fusion is seen. CONCLUSION: Left base atelectasis or consolidation. Juancho Wright MD on September 17, 2017 at 9:32 Board Certified Radiologist. This report was verified electronically.
[2017-09-17] MEDS: PANTOPRAZOLE SOD 40 MG DELAYED RELEASE TAB PO SCH (10:16)
[2017-09-17] MEDS: levETIRAcetam 500 MG TAB PO SCH (10:16)
[2017-09-17] MEDS: FERROUS SULFATE 325 MG (65 MG ELEMENTAL IRON) TAB PO SCH (10:17)
[2017-09-17] MEDS: CYCLOBENZAPRINE HCL 10 MG TAB PO SCH (10:17)
[2017-09-17] MEDS: DOCUSATE SODIUM 100 MG CAP PO SCH (10:17)
[2017-09-17] MEDS: BACLOFEN 10 MG TAB PO SCH ×2 (10:17→13:11)
[2017-09-17] MEDS: FLUTICASONE PROPIONATE 50 MCG/ACT 16 GM NASAL SPRAY EACH NARE SCH (10:18)
[2017-09-17] MEDS ORDERED: ASPI81TA11 PO (12:30)
[2017-09-17] MEDS ORDERED: WARFARIN SOD 7.5 MG TAB PO SCH (16:00)
--- NOTE | 2017-09-17 17:02 | EKG ---
Date Performed: 09/17/2017 Time Performed: 06:38:08 PTAGE: 42 years EKG: Sinus rhythm rSr'(V1) - probable normal variant Extensive T wave changes are nonspecific Borderline ECG PREVIOUS TRACING : 05/11/2017 21.57 Compared to prior tracing no significant change DOCTOR: Milton Montalvo Interpretating Date/Time 09/17/2017 17:00:39
== END 2017-09-17 14:08 | disposition home or self-care (01) ==
LOC: HDOC 08:47 → HDIC 08:48 → HCPC 14:37 → HDOC 09-17 14:08
PROVIDERS: ATTEND Radiology Vascular & Interventional Radiology
DX: Q21.1 Atrial septal defect (principal); Z86.718 Personal history of other venous thrombosis and embolism; Z86.73 Personal history of transient ischemic attack (TIA), and cerebral infarction without residual deficits; Z87.891 Personal history of nicotine dependence
CPT/HCPCS: 71010; 80048; 84702; 85025; 85610; 86850; 86900; 86901; 93005; 93580; 93662; 99152; 99153; C1759; C1769; C1817; C1893; J0690; J1644; J1885; J2250; J3010

== ENCOUNTER → 2017-09-26 | Outpatient (CLI) | payer OTHER, MEDICAID ==
[~2017-09-26] MED LIST changes: +ASPI81TA23 PO; -BACL10TA; +BACL10TA PO; -CITA20TA4; +CITA20TA4 PO; +CYCL10TA PO; -DICL1GEL7; +DOCU100C15 PO; +FERR325T18 PO; -FERR325T8; +FLUT1SPR5 EACH NARE; -FLUT50SP; -HYDR-3516; +HYDR-3516 PO; -LEVE500T8; +LEVE500T8 PO; -ONDA1TAB16; -PANT40TA3; +PANT40TA3 PO; -SUCR1TAB; +SUCR1TAB PO; -WARF-21; +WARF-21 PO; -WARF-22; +WARF-22 PO; +ZOFR4TAB PO
== END ==
LOC: CLAB 08:22
PROVIDERS: ATTEND Family Medicine
DX: Z00.00 Encounter for general adult medical examination without abnormal findings (principal)
CPT/HCPCS: 36415; 85610

== ENCOUNTER → 2017-10-12 | Outpatient (CLI) | payer OTHER, MEDICAID ==
[2017-10-12 12:46] LABS: INTERNATIONAL NORMALIZED RATIO 8.3 RATIO
== END ==
LOC: CLAB 11:43
PROVIDERS: ATTEND Family Medicine
DX: Z86.73 Personal history of transient ischemic attack (TIA), and cerebral infarction without residual deficits (principal)
CPT/HCPCS: 36415; 85610

== ENCOUNTER 2017-10-14 10:40 | Emergency (ER) | payer OTHER, MEDICAID ==
[~2017-10-14] VITALS: Ht 160 cm; Wt 56.5 kg
[2017-10-14 10:40] VITALS: BP 132/79; PULSE 82; RESP 16; TEMP 98.8; O2SAT 99
[~2017-10-14 10:40] MED LIST changes: -CYCL10TA PO; -ZOFR4TAB PO
--- NOTE | 2017-10-14 10:53 | PD ---
HPI Chief Complaint: right elbow pain Time Seen by Provider: 10:52 Travel History International Travel<30 days: No Contact w/Intl Traveler<30days: No History of Present Illness HPI Patient is a 42-year-old female with recent history of masses right-sided stroke leaving left-sided deficits presents emergency department for evaluation of right elbow pain. I did discuss this patient with Dr. Gomez her neurologist prior to arrival apparently patient had complained of some right sided weakness to him over the phone. She has been going to physical therapy and states that she thinks she injured it during physical therapy but does not think that her symptoms are neurologic in nature. Patient states symptoms been going on for the past day or so, gradually worsening. She also recently had her Coumadin held because of an INR axis of 8. Discussed with her primary care physician she had orders for a dose of vitamin K but the dose. Otherwise she states she feels well and is in good spirits. Denies any chest pain shortness of breath the new weakness, or direct injury. PFSH Past Medical History Cancer: No Cardiovascular Problems: Yes (PFO) Cerebrovascular Accident: Yes (March 2017) Endocrine: No Genitourinary: No Hypertension: No Immune Disorder: No Musculoskeletal: No Neurologic: Yes Psychiatric: No Reproductive: No Respiratory: No Social History Alcohol Use: No Tobacco Use: No Substance Use: No Allergies-Medications (Allergen,Severity, Reaction): Coded Allergies: kiwi (Verified Allergy, Unknown, 09/05/17) shellfish derived (Unverified Allergy, Unknown, 09/05/17) Reported Meds & Prescriptions Reported Meds & Active Scripts Active Reported Zofran (Ondansetron HCl) 4 Mg Tab 4 Mg PO Q12HR PRN Flexeril (Cyclobenzaprine HCl) 10 Mg Tab 10 Mg PO TID Aspirin EC (Aspirin) 81 Mg Tabdr 81 Mg PO DAILY Hydrocodone-Acetaminophen 5-325 mg Tab 1 Tab PO Q4H PRN Docusate Sodium 100 Mg Cap 100 Mg PO BID Levetiracetam 500 Mg Tab 500 Mg PO BID Warfarin 7.5 Mg Tab 7.5 Mg PO DAILYEXCEPTMONDAY Warfarin 10 Mg Tab 10 Mg PO WEEKLY Sucralfate 1 Gram Tab 1 Gm PO DAILY@2000 on empty stomach Pantoprazole (Pantoprazole Sodium) 40 Mg Tab 40 Mg PO BID Flonase Nasal [place] (Fluticasone Nasal [place]) 50 Mcg/Act [place] 50 Mcg EACH NARE BID Ferrous Sulfate 325 Mg (65 Mg Iron) Tablet 325 Mg PO BIDPC Citalopram (Citalopram Hydrobromide) 20 Mg Tab 20 Mg PO DAILY Baclofen 10 Mg Tab 10 Mg PO TID Review of Systems Except as stated in HPI: all other systems reviewed are Neg Physical Exam Narrative GENERAL: Well-developed well-nourished, quite pleasant in no distress. SKIN: Focused skin assessment warm/dry. HEAD: Atraumatic. Evidence of prior craniotomy EYES: Pupils equal and round. No scleral icterus. No injection or drainage. ENT: No nasal bleeding or discharge. Mucous membranes pink and moist. NECK: Trachea midline. No JVD. CARDIOVASCULAR: Regular rate and rhythm. No murmur appreciated. RESPIRATORY: No accessory muscle use. Clear to auscultation. Breath sounds equal bilaterally. GASTROINTESTINAL: Abdomen soft, non-tender, nondistended. Hepatic and splenic margins not palpable. MUSCULOSKELETAL: No obvious deformities. No clubbing. No cyanosis. No edema. The right elbow is minimally tender over the lateral aspect. Perhaps minimally swollen. There is range of motion intact but somewhat tender. Wrist and shoulder negative. No overlying bruising. 2+ bilateral equal pulses felt in all 4 extremities. NEUROLOGICAL: Awake alert and pleasant. There is some subtle weakness of left cranial nerve VII region. Is also a dense weakness of the left upper and left lower extremity. 5 out of 5 strength in the right upper and right lower extremity. PSYCHIATRIC: Appropriate mood and affect; insight and judgment normal. Data Data Last Documented VS Vital Signs Date Time Temp Pulse Resp B/P (MAP) Pulse Ox O2 Delivery O2 Flow Rate FiO2 10/14/17 16:16 86 16 113/53 (73) 99 Room Air 10/14/17 10:40 98.8 Orders Orders Complete Blood Count With Diff (10/14/17 10:52) Comprehensive Metabolic Panel (10/14/17 10:52) Prothrombin Time / Inr (Pt) (10/14/17 10:52) Act Partial Throm Time (Ptt) (10/14/17 10:52) Ct Brain W/O Iv Contrast(Rout) (10/14/17 10:52) Blood Glucose (10/14/17 10:52) Ecg Monitoring (10/14/17 10:52) Iv Access Insert/Monitor (10/14/17 10:52) Oximetry (10/14/17 10:52) Sodium Chloride 0.9% Flush (Ns Flush) (10/14/17 11:00) Elbow, Complete (4 Vws) (10/14/17 ) Ct Elbow W/O Contrast (10/14/17 ) Zaheer Bandage (10/14/17 15:02) Ed Discharge Order (10/14/17 15:08) Labs Laboratory Tests Test 10/14/17 12:00 White Blood Count 5.0 TH/MM3 Red Blood Count 2.81 MIL/MM3 Hemoglobin 8.5 GM/DL Hematocrit 25.3 % Mean Corpuscular Volume 90.1 FL Mean Corpuscular Hemoglobin 30.2 PG Mean Corpuscular Hemoglobin Concent 33.6 % Red Cell Distribution Width 13.3 % Platelet Count 337 TH/MM3 Mean Platelet Volume 7.5 FL Neutrophils (%) (Auto) 56.5 % Lymphocytes (%) (Auto) 27.0 % Monocytes (%) (Auto) 10.2 % Eosinophils (%) (Auto) 5.5 % Basophils (%) (Auto) 0.8 % Neutrophils # (Auto) 2.8 TH/MM3 Lymphocytes # (Auto) 1.3 TH/MM3 Monocytes # (Auto) 0.5 TH/MM3 Eosinophils # (Auto) 0.3 TH/MM3 Basophils # (Auto) 0.0 TH/MM3 CBC Comment DIFF FINAL Differential Comment Prothrombin Time 37.1 SEC Prothromb Time International Ratio 3.2 RATIO Activated Partial Thromboplast Time 61.9 SEC Blood Urea Nitrogen 11 MG/DL Creatinine 0.60 MG/DL Random Glucose 89 MG/DL Total Protein 7.2 GM/DL Albumin 3.0 GM/DL Calcium Level 8.7 MG/DL Alkaline Phosphatase 91 U/L Aspartate Amino Transf (AST/SGOT) 19 U/L Alanine Aminotransferase (ALT/SGPT) 16 U/L Total Bilirubin 0.3 MG/DL Sodium Level 139 MEQ/L Potassium Level 3.5 MEQ/L Chloride Level 104 MEQ/L Carbon Dioxide Level 27.8 MEQ/L Anion Gap 7 MEQ/L Estimat Glomerular Filtration Rate 109 ML/MIN MDM Medical Decision Making Medical Screen Exam Complete: Yes Emergency Medical Condition: Yes Differential Diagnosis Elbow contusion, elbow sprain, hemarthrosis, fracture. Narrative Course After discussion with the patient's neurologist Dr. Gomez at her tests were ordered including CAT scan of the head. INR is now down to 3. I agree with the patient's assessment that these symptoms are unlikely to be neurologic in origin. The patient did have anterior posterior fat pad signs and x-ray of her right elbow. Given this is the only functioning, this patient CAT scan of her elbow was obtained which shows no acute fracture. Hemarthrosis is a possibility but at this point after discussion with Dr. Faust's PA we would do conservative management. Patient was placed in Zaheer wrap with instructions for restless compression and elevation. The patient was again discussed with Dr. Gomez who agrees with the assessment and follow-up as scheduled. The patient was then discussed with Dr. Villalba to start Coumadin today at her new dosing regimen. Patient is stable for discharge. Diagnosis Primary Impression: Elbow pain, right Referrals: Reynold Faust MD Patient Instructions: General Instructions, RICE Therapy (GEN) Disposition: 01 DISCHARGE HOME Condition: Stable Nam Atkinson MD Oct 14, 2017 10:53
[2017-10-14] MEDS ORDERED: SODIUM CHLORIDE 0.9% FLUSH 5 ML FLUSH IV FLUSH PRN (11:00)
[2017-10-14] MEDS ORDERED: ZOFR4TAB PO (11:18)
[2017-10-14] MEDS ORDERED: CYCL10TA PO (11:18)
--- NOTE | 2017-10-14 11:44 | RADRPT ---
EXAM DATE/TIME: 10/14/2017 11:16 [facility] COMPARISON: No previous studies available for comparison. INDICATIONS : Right elbow pain. Patient has difficulty moving her arm, very painful. Patient states no known trauma . MEDICAL HISTORY : Stroke. Cerebrovascular disease. SURGICAL HISTORY : Craniotomy. ENCOUNTER: Initial ACUITY: 4 - 6 days PAIN SCORE: 10/10 LOCATION: Right Elbow. FINDINGS: A standard 4 view examination of the right elbow was obtained and demonstrates an anterior posterior fat pad sign consistent with a joint effusion. There is no definite visualized fracture. The radial h ead appears intact. The soft tissues are otherwise unremarkable. CONCLUSION: Anterior and posterior fat-pad signs consistent with a joint effusion. Marco Antonio Mao MD on October 14, 2017 at 11:41 Board Certified Radiologist. This report was verified electronically.
--- NOTE | 2017-10-14 11:49 | RADRPT ---
EXAM DATE/TIME: 10/14/2017 11:31 [facility] COMPARISON: CT BRAIN W/O CONTRAST, May 23, 2017, 4:19. INDICATIONS : Altered mental status. Past craniotomy. RADIATION DOSE: 28.07 CTDIvol (mGy) MEDICAL HISTORY : Cerebrovascular disease. Cardiovascular disease DVT,PFO,CVA SURGICAL HISTORY : Craniotomy. Cranioplasty. ENCOUNTER: Initial ACUITY: 1 day PAIN SCALE: 0/10 LOCATION: cranial TECHNIQUE: Multiple contiguous axial images were obtained of the head. Using automated exposure control and adj ustment of the mA and/or kV according to patient size, radiation dose was kept as low as reasonably a chievable to obtain optimal diagnostic quality images. DICOM format image data is available electro nically for review and comparison. FINDINGS: Extensive postsurgical changes are again noted status post right frontal parietal and temporal c raniotomy. There is a large area of encephalomalacia and portions of the brain again herniated throug h the large craniotomy defect there is improved with decreased edema. There is no acute hemorrhage or mass effect. Ex vacuo changes noted involving portions of the right lateral ventricle with dilatatio n of the occipital horn. There is a focal area encephalomalacia involving the right occipital lobe. T he posterior fossa and brainstem remain unremarkable. CONCLUSION: 1. No acute hemorrhage or mass effect. 2. Extensive postsurgical changes with interval improvement with decreased edema and herniation of th e brain through the craniotomy defect. Marco Antonio Mao MD on October 14, 2017 at 11:42 Board Certified Radiologist. This report was verified electronically.
[2017-10-14 12:13] LABS: AUTOMATED NEUTROPHIL # 2.8 TH/MM3 (1.8-7.7); BASOPHIL % 0.8 % (0.0-2.0); EOSINOPHIL # 0.3 TH/MM3 (0-0.4); EOSINOPHIL % 5.5 % (0.0-4.0); HEMATOCRIT 25.3 % (35.0-46.0); HEMO FLAGS DIFF FINAL; LYMPHOCYTE # 1.3 TH/MM3 (1.0-4.8); MEAN CELL VOLUME 90.1 FL (80.0-100.0); MEAN CORPUSCULAR HEMOGLOBIN 30.2 PG (27.0-34.0); MEAN CORPUSCULAR HGB CONC 33.6 % (32.0-36.0); MONO % 10.2 % (0.0-8.0); NEUT % 56.5 % (16.0-70.0); PLATELET COUNT 337 TH/MM3 (150-450); RED BLOOD COUNT 2.81 MIL/MM3 (4.00-5.30); RED CELL DISTRIBUTION WIDTH 13.3 % (11.6-17.2)
[2017-10-14 12:26] LABS: APTT (PATIENT) 61.9 SEC (24.3-30.1); INTERNATIONAL NORMALIZED RATIO 3.2 RATIO; PROTHROMBIN TIME - PATIENT 37.1 SEC (9.8-11.6)
[2017-10-14 12:29] LABS: ALT (GPT) 16 U/L (10-53); ANION GAP 7 MEQ/L (5-15); AST (GOT) 19 U/L (15-37); BICARBONATE 27.8 MEQ/L (21.0-32.0); BLOOD UREA NITROGEN 11 MG/DL (7-18); CHLORIDE 104 MEQ/L (98-107); GLOMERULAR FILTRATION RATE 109 ML/MIN (>89); POTASSIUM 3.5 MEQ/L (3.5-5.1); SODIUM (NA) 139 MEQ/L (136-145)
[2017-10-14 12:32] LABS: ALKALINE PHOSPHATASE 91 U/L (45-117); TOTAL BILIRUBIN ADULT 0.3 MG/DL (0.2-1.0)
[2017-10-14 12:50] VITALS: BP 122/71; PULSE 78; RESP 16; O2SAT 99
--- NOTE | 2017-10-14 14:59 | RADRPT ---
EXAM DATE/TIME: 10/14/2017 14:06 [facility] COMPARISON: ELBOW RIGHT COMPLETE (4 VWS), October 14, 2017, 11:16. CT BRAIN W/O CONTRAST, October 14, 2017, 11 :31. INDICATIONS : Right arm pain for one day, joint effusion. RADIATION DOSE: 13.92 CTDIvol (mGy) MEDICAL HISTORY : Stroke. Diverticulosis. CVA. SURGICAL HISTORY : Craniotomy. ENCOUNTER: Initial ACUITY: 1 day PAIN SCALE: 4/10 LOCATION: Right elbow. TECHNIQUE: Volumetric scanning of the elbow was performed. Using automated exposure control and adjustment of t he mA and/or kV according to patient size, radiation dose was kept as low as reasonably achievable to obtain optimal diagnostic quality images. DICOM format image data is available electronically for r eview and comparison. FINDINGS: BONES: No evidence of fracture. Alignment is within normal limits. JOINTS: No evidence of joint narrowing or effusion. SOFT TISSUES: Muscles, tendons and neurovascular structures are grossly unremarkable. No evidence of mass, organize d fluid collection, or foreign body. CONCLUSION: 1. No occult fracture identified. Olivier Younger MD on October 14, 2017 at 14:51 Board Certified Radiologist. This report was verified electronically.
[2017-10-14 16:16] VITALS: BP 113/53; PULSE 86; RESP 16; O2SAT 99
== END 2017-10-14 16:09 | disposition home or self-care (01) ==
LOC: NEPE 10:40
DX: M25.521 Pain in right elbow (principal); Z79.01 Long term (current) use of anticoagulants; Z86.73 Personal history of transient ischemic attack (TIA), and cerebral infarction without residual deficits
CPT/HCPCS: 70450; 73080; 73200; 80053; 85025; 85610; 85730; 99285

== ENCOUNTER → 2017-10-17 | Outpatient (CLI) | payer OTHER, MEDICAID ==
[~2017-10-17] MED LIST changes: +CYCL10TA PO; +ZOFR4TAB PO
[2017-10-17 12:57] LABS: MEAN CELL VOLUME 89.6 FL (80.0-100.0); MEAN CORPUSCULAR HEMOGLOBIN 30.8 PG (27.0-34.0); MEAN CORPUSCULAR HGB CONC 34.3 % (32.0-36.0); PLATELET COUNT 462 TH/MM3 (150-450); RED BLOOD COUNT 3.01 MIL/MM3 (4.00-5.30); RED CELL DISTRIBUTION WIDTH 13.6 % (11.6-17.2); REVIEW FLAG FINAL; WHITE BLOOD COUNT 7.7 TH/MM3 (4.0-11.0)
[2017-10-17 13:07] LABS: INTERNATIONAL NORMALIZED RATIO 4.1 RATIO; PROTHROMBIN TIME - PATIENT 47.6 SEC (9.8-11.6)
[2017-10-17 13:23] LABS: FOLLICLE STIMULATING HORMONE 7.1 mIU/mL; FREE T4 1.09 NG/DL (0.76-1.46)
== END ==
LOC: CLAB 12:29
PROVIDERS: ATTEND Family Medicine
DX: D68.59 Other primary thrombophilia (principal); N92.1 Excessive and frequent menstruation with irregular cycle; D64.9 Anemia, unspecified; Z13.29 Encounter for screening for other suspected endocrine disorder
CPT/HCPCS: 36415; 83001; 84439; 84443; 84480; 85027; 85610

== ENCOUNTER → 2017-10-24 | Outpatient (CLI) | payer OTHER, MEDICAID ==
[2017-10-24 14:13] LABS: INTERNATIONAL NORMALIZED RATIO 4.1 RATIO; PROTHROMBIN TIME - PATIENT 48.4 SEC (9.8-11.6)
== END ==
LOC: CLAB 13:41
PROVIDERS: ATTEND Family Medicine
DX: Z86.73 Personal history of transient ischemic attack (TIA), and cerebral infarction without residual deficits (principal)
CPT/HCPCS: 36415; 85610

== ENCOUNTER → 2017-10-31 | Outpatient (CLI) | payer OTHER, MEDICAID ==
[2017-10-31 14:13] LABS: INTERNATIONAL NORMALIZED RATIO 3.1 RATIO; PROTHROMBIN TIME - PATIENT 30.8 SEC (9.8-11.6)
== END ==
LOC: CLAB 13:16
PROVIDERS: ATTEND Family Medicine
DX: Z86.73 Personal history of transient ischemic attack (TIA), and cerebral infarction without residual deficits (principal)
CPT/HCPCS: 36415; 85610

== ENCOUNTER → 2017-11-14 | Outpatient (CLI) | payer OTHER, MEDICAID ==
[2017-11-14 14:30] LABS: INTERNATIONAL NORMALIZED RATIO 1.9 RATIO; PROTHROMBIN TIME - PATIENT 19.5 SEC (9.8-11.6)
== END ==
LOC: CLAB 14:03
PROVIDERS: ATTEND Family Medicine
DX: Z86.73 Personal history of transient ischemic attack (TIA), and cerebral infarction without residual deficits (principal)
CPT/HCPCS: 36415; 85610

== ENCOUNTER → 2017-11-29 | Outpatient (CLI) | payer OTHER, MEDICAID ==
[2017-11-29 14:13] LABS: INTERNATIONAL NORMALIZED RATIO 2.1 RATIO; PROTHROMBIN TIME - PATIENT 20.8 SEC (9.8-11.6)
== END ==
LOC: CLAB 13:42
PROVIDERS: ATTEND Family Medicine
DX: Z86.73 Personal history of transient ischemic attack (TIA), and cerebral infarction without residual deficits (principal)
CPT/HCPCS: 36415; 85610

== ENCOUNTER → 2017-12-12 | Outpatient (CLI) | payer OTHER ==
[2017-12-12 15:21] LABS: INTERNATIONAL NORMALIZED RATIO 1.6 RATIO
== END ==
LOC: CLAB 14:38
PROVIDERS: ATTEND Family Medicine
DX: Z86.73 Personal history of transient ischemic attack (TIA), and cerebral infarction without residual deficits (principal)
CPT/HCPCS: 36415; 85610

== ENCOUNTER → 2017-12-26 | Outpatient (CLI) | payer OTHER ==
[2017-12-26 10:48] LABS: PROTHROMBIN TIME - PATIENT 19.8 SEC (9.8-11.6)
== END ==
LOC: CLAB 10:22
PROVIDERS: ATTEND Family Medicine
DX: Z86.73 Personal history of transient ischemic attack (TIA), and cerebral infarction without residual deficits (principal)
CPT/HCPCS: 36415; 85610

== ENCOUNTER → 2018-01-11 | Outpatient (CLI) | payer OTHER, MEDICAID ==
[2018-01-11 15:34] LABS: INTERNATIONAL NORMALIZED RATIO 2.3 RATIO; PROTHROMBIN TIME - PATIENT 23.4 SEC (9.8-11.6)
== END ==
LOC: CLAB 14:25
PROVIDERS: ATTEND Family Medicine
DX: Z86.73 Personal history of transient ischemic attack (TIA), and cerebral infarction without residual deficits (principal)
CPT/HCPCS: 36415; 85610

== ENCOUNTER → 2018-01-23 | Outpatient (CLI) | payer OTHER, MEDICAID ==
[2018-01-23 12:38] LABS: INTERNATIONAL NORMALIZED RATIO 2.1 RATIO; PROTHROMBIN TIME - PATIENT 21.7 SEC (9.8-11.6)
== END ==
LOC: CLAB 10:40
PROVIDERS: ATTEND Family Medicine
DX: Z86.73 Personal history of transient ischemic attack (TIA), and cerebral infarction without residual deficits (principal)
CPT/HCPCS: 36415; 85610

== ENCOUNTER → 2018-02-06 | Outpatient (CLI) | payer OTHER, MEDICAID ==
[2018-02-06 12:35] LABS: INTERNATIONAL NORMALIZED RATIO 1.8 RATIO; PROTHROMBIN TIME - PATIENT 18.7 SEC (9.8-11.6)
== END ==
LOC: CLAB 12:07
PROVIDERS: ATTEND Family Medicine
DX: Z86.73 Personal history of transient ischemic attack (TIA), and cerebral infarction without residual deficits (principal)
CPT/HCPCS: 36415; 85610

== ENCOUNTER 2018-02-25 17:59 | Emergency (ER) | payer OTHER ==
[~2018-02-25 17:59] MED LIST changes: +CETI10; +VITA500T83 PO
--- NOTE | 2018-02-25 18:19 | PD ---
HPI Chief Complaint: NEAR SYNCOPE Time Seen by Provider: 18:05 Travel History International Travel<30 days: No Contact w/Intl Traveler<30days: No Traveled to known affect area: No History of Present Illness HPI 42-year-old female with history of acute right MCA stroke that occurred last April 272016 with residual left-sided hemiparesis presents to the emergency department today for evaluation of lightheaded sensation when following by vomiting when transitioning from sitting to standing. Patient was seen and evaluated approximately a week ago for a syncopal episode. She states that over the course the day she has felt more tired and worn out with these episodes occurring with almost every transition. She states after she vomits she feels better. She denies any other obvious focal deficits weakness. She is concerned that it might be all of the medications that she is on. She denies any other illnesses, fever, or chills. Denies any new headache. No other symptoms to report. PFSH Past Medical History Hx Anticoagulant Therapy: Yes (COUMADIN ) Depression: Yes Cancer: No Cardiovascular Problems: Yes (PFO) Cerebrovascular Accident: Yes (L SIDED DEFICITS ) Diabetes: No Diminished Hearing: No Endocrine: No Genitourinary: No Hypertension: No Immune Disorder: No Implanted Vascular Access Dvce: No Musculoskeletal: No Neurologic: Yes Psychiatric: No Reproductive: No Respiratory: No Past Surgical History Neurologic Surgery: Yes (CRANIOTOMY) Other Surgery: Yes (TRACHEOSTOMY ) Social History Alcohol Use: No Tobacco Use: No Substance Use: No Allergies-Medications (Allergen,Severity, Reaction): Coded Allergies: kiwi (Verified Allergy, Unknown, 09/05/17) shellfish derived (Unverified Allergy, Unknown, 09/05/17) Reported Meds & Prescriptions Reported Meds & Active Scripts Active Reported Celexa (Citalopram Hydrobromide) 20 Mg Tab 20 Mg PO DAILY Cetirizine (Cetirizine HCl) 10 Mg Tab 10 Mg DAILY Vitamin C ER (Ascorbic Acid) 500 Mg Maged 500 Mg PO BID Zofran (Ondansetron HCl) 4 Mg Tab 4 Mg PO Q12HR PRN Flexeril (Cyclobenzaprine HCl) 10 Mg Tab 10 Mg PO TID Aspirin EC (Aspirin) 81 Mg Tabdr 81 Mg PO DAILY Hydrocodone-Acetaminophen 5-325 mg Tab 1 Tab PO Q4H PRN Docusate Sodium 100 Mg Cap 100 Mg PO BID Levetiracetam 500 Mg Tab 500 Mg PO BID Warfarin 7.5 Mg Tab 7.5 Mg PO DAILYEXCEPTMONDAY Warfarin 10 Mg Tab 5 Mg PO WEEKLY Sucralfate 1 Gram Tab 1 Gm PO DAILY@2000 on empty stomach Pantoprazole (Pantoprazole Sodium) 40 Mg Tab 40 Mg PO BID Flonase Nasal [place] (Fluticasone Nasal [place]) 50 Mcg/Act [place] 50 Mcg EACH NARE BID Ferrous Sulfate 325 Mg (65 Mg Iron) Tablet 325 Mg PO BIDPC Citalopram (Citalopram Hydrobromide) 20 Mg Tab 20 Mg PO DAILY Baclofen 10 Mg Tab 10 Mg PO TID Review of Systems Except as stated in HPI: all other systems reviewed are Neg Physical Exam Narrative GENERAL: Well-nourished female patient, in no acute distress. SKIN: Focused skin assessment warm/dry. HEAD: Atraumatic. Normocephalic. EYES: Pupils equal and round. No scleral icterus. No injection or drainage. ENT: No nasal bleeding or discharge. Mucous membranes pink and moist. NECK: Trachea midline. No JVD. CARDIOVASCULAR: Tachycardic rate and rhythm. RESPIRATORY: No accessory muscle use. Clear to auscultation. Breath sounds equal bilaterally. GASTROINTESTINAL: Abdomen soft, non-tender, nondistended. Hepatic and splenic margins not palpable. MUSCULOSKELETAL: No obvious deformities. No clubbing. No cyanosis. No edema. NEUROLOGICAL: Awake and alert. No obvious cranial nerve deficits. Left-sided hemiparesis. Normal speech. PSYCHIATRIC: Appropriate mood and affect; insight and judgment normal. Data Data Last Documented VS Vital Signs Date Time Temp Pulse Resp B/P (MAP) Pulse Ox O2 Delivery O2 Flow Rate FiO2 02/25/18 19:33 16 95 02/25/18 19:28 103 124 120 02/25/18 18:59 100.2 Orders Orders Electrocardiogram (02/25/18 18:18) Complete Blood Count With Diff (02/25/18 18:18) Comprehensive Metabolic Panel (02/25/18 18:18) Magnesium (Mg) (02/25/18 18:18) Act Partial Throm Time (Ptt) (02/25/18 18:18) Prothrombin Time / Inr (Pt) (02/25/18 18:18) Urinalysis - C+S If Indicated (02/25/18 18:18) Ecg Monitoring (02/25/18 18:18) Iv Access Insert/Monitor (02/25/18 18:18) Oximetry (02/25/18 18:18) Sodium Chloride 0.9% Flush (Ns Flush) (02/25/18 18:30) Sodium Chlor 0.9% 1000 Ml Inj (Ns 1000 M (02/25/18 18:30) Orthostatic Vital Signs (02/25/18 18:33) Acetaminophen (Tylenol) (02/25/18 20:15) Ed Discharge Order (02/25/18 22:36) Labs Laboratory Tests Test 02/25/18 19:00 02/25/18 21:55 White Blood Count 11.3 TH/MM3 Red Blood Count 4.47 MIL/MM3 Hemoglobin 13.3 GM/DL Hematocrit 38.4 % Mean Corpuscular Volume 85.8 FL Mean Corpuscular Hemoglobin 29.7 PG Mean Corpuscular Hemoglobin Concent 34.6 % Red Cell Distribution Width 14.3 % Platelet Count 378 TH/MM3 Mean Platelet Volume 7.6 FL CBC Comment AUTO DIFF Differential Total Cells Counted 100 Neutrophils % (Manual) 87 % Band Neutrophils % 4 % Lymphocytes % 7 % Monocytes % 1 % Eosinophils % 1 % Neutrophils # (Manual) 10.3 TH/MM3 Differential Comment FINAL DIFF MANUAL Platelet Estimate NORMAL Platelet Morphology Comment NORMAL Red Cell Morphology Comment NORMAL Prothrombin Time 24.4 SEC Prothromb Time International Ratio 2.4 RATIO Activated Partial Thromboplast Time 27.1 SEC Blood Urea Nitrogen 15 MG/DL Creatinine 0.74 MG/DL Random Glucose 86 MG/DL Total Protein 7.3 GM/DL Albumin 2.8 GM/DL Calcium Level 8.1 MG/DL Magnesium Level 1.9 MG/DL Alkaline Phosphatase 84 U/L Aspartate Amino Transf (AST/SGOT) 16 U/L Alanine Aminotransferase (ALT/SGPT) 27 U/L Total Bilirubin 0.4 MG/DL Sodium Level 137 MEQ/L Potassium Level 3.9 MEQ/L Chloride Level 102 MEQ/L Carbon Dioxide Level 26.5 MEQ/L Anion Gap 9 MEQ/L Estimat Glomerular Filtration Rate 85 ML/MIN Urine Color LIGHT-YELLOW Urine Turbidity CLEAR Urine pH 8.5 Urine Specific [place] 1.017 Urine Protein TRACE mg/dL Urine Glucose (UA) NEG mg/dL Urine Ketones NEG mg/dL Urine Occult Blood NEG Urine Nitrite NEG Urine Bilirubin NEG Urine Urobilinogen LESS THAN 2.0 MG/DL Urine Leukocyte Esterase NEG Urine WBC LESS THAN 1 /hpf Urine Squamous Epithelial Cells 1 /hpf Urine Mucus FEW /lpf Microscopic Urinalysis Comment CULT NOT INDICATED MDM Medical Decision Making Medical Screen Exam Complete: Yes Emergency Medical Condition: Yes Medical Record Reviewed: Yes Differential Diagnosis Syncope versus near syncope versus electrolyte abnormality versus dehydration versus anemia versus infectious etiology Narrative Course 42-year-old female presents emergency department for evaluation following near syncopal episodes that have been occurring throughout the day with transitioning. Patient appears without distress. She has a low-grade temperature is mildly tachycardic. Laboratory Tests Test 02/25/18 19:00 White Blood Count 11.3 TH/MM3 Red Blood Count 4.47 MIL/MM3 Hemoglobin 13.3 GM/DL Hematocrit 38.4 % Mean Corpuscular Volume 85.8 FL Mean Corpuscular Hemoglobin 29.7 PG Mean Corpuscular Hemoglobin Concent 34.6 % Red Cell Distribution Width 14.3 % Platelet Count 378 TH/MM3 Mean Platelet Volume 7.6 FL CBC Comment AUTO DIFF Differential Total Cells Counted 100 Neutrophils % (Manual) 87 % Band Neutrophils % 4 % Lymphocytes % 7 % Monocytes % 1 % Eosinophils % 1 % Neutrophils # (Manual) 10.3 TH/MM3 Differential Comment FINAL DIFF MANUAL Platelet Estimate NORMAL Platelet Morphology Comment NORMAL Red Cell Morphology Comment NORMAL Prothrombin Time 24.4 SEC Prothromb Time International Ratio 2.4 RATIO Activated Partial Thromboplast Time 27.1 SEC Blood Urea Nitrogen 15 MG/DL Creatinine 0.74 MG/DL Random Glucose 86 MG/DL Total Protein 7.3 GM/DL Albumin 2.8 GM/DL Calcium Level 8.1 MG/DL Magnesium Level 1.9 MG/DL Alkaline Phosphatase 84 U/L Aspartate Amino Transf (AST/SGOT) 16 U/L Alanine Aminotransferase (ALT/SGPT) 27 U/L Total Bilirubin 0.4 MG/DL Sodium Level 137 MEQ/L Potassium Level 3.9 MEQ/L Chloride Level 102 MEQ/L Carbon Dioxide Level 26.5 MEQ/L Anion Gap 9 MEQ/L Estimat Glomerular Filtration Rate 85 ML/MIN Patient is given IV normal saline bolus. She is given Tylenol by mouth. With orthostatic vital signs, patient blood pressure has a very mild drop in heart rate does increase into the 120s. Urinalysis is unremarkable. Discussed the patient with my attending physician. We have reviewed everything together. Patient discussed with the patient and her fianc at bedside that we feel it is appropriate for disposition home to follow-up with Dr. Perera her marketing co op and Dr. Gomez her neurologist. Patient is in agreement this plan of care. She agrees to return immediately with any acute worsening symptoms. Diagnosis Primary Impression: Near syncope Referrals: Jr Perera James A. MD PhD Patient Instructions: General Instructions, Lightheadedness (ED) Additional Instructions: Maintain adequate oral hydration Follow-up with a primary care provider Return immediately with any acute worsening symptoms Med/Other Pt SpecificInfo: No Change to Meds Disposition: 01 DISCHARGE HOME Condition: Stable BranchRebekah phillip TYRONE Feb 25, 2018 18:19
[2018-02-25] MEDS ORDERED: SODIUM CHLORIDE 0.9% FLUSH 10 ML FLUSH IVF PRN (18:30)
[2018-02-25] MEDS ORDERED: SODIUM CHLOR 0.9% 1000 ML INJ 1,000 ML IV ONE (18:30)
[2018-02-25 18:59] VITALS: BP 139/74; PULSE 104; RESP 16; TEMP 100.2; O2SAT 99
[2018-02-25] MEDS ORDERED: CELE20TA PO (19:09)
[2018-02-25 19:28] VITALS: BP_SYST 118; BP_SYST 124; BP_SYST 132; BP_DIAS 72; BP_DIAS 74; BP_DIAS 80; RESP 16
[2018-02-25 19:33] VITALS: RESP 16; O2SAT 95
[2018-02-25] MEDS ORDERED: ACETAMINOPHEN 325 MG TAB PO ONE (20:15)
[2018-02-25 20:18] LABS: HEMATOCRIT 38.4 % (35.0-46.0); HEMOGLOBIN 13.3 GM/DL (11.6-15.3); MEAN CELL VOLUME 85.8 FL (80.0-100.0); MEAN CORPUSCULAR HEMOGLOBIN 29.7 PG (27.0-34.0); MEAN CORPUSCULAR HGB CONC 34.6 % (32.0-36.0); MEAN PLATELET VOLUME 7.6 FL (7.0-11.0); PLATELET COUNT 378 TH/MM3 (150-450); RED BLOOD COUNT 4.47 MIL/MM3 (4.00-5.30); RED CELL DISTRIBUTION WIDTH 14.3 % (11.6-17.2); WHITE BLOOD COUNT 11.3 TH/MM3 (4.0-11.0)
[2018-02-25 20:24] LABS: INTERNATIONAL NORMALIZED RATIO 2.4 RATIO; PROTHROMBIN TIME - PATIENT 24.4 SEC (9.8-11.6)
[2018-02-25 20:39] LABS: ALBUMIN 2.8 GM/DL (3.4-5.0); AST (GOT) 16 U/L (15-37); BICARBONATE 26.5 MEQ/L (21.0-32.0); BLOOD UREA NITROGEN 15 MG/DL (7-18); CALCIUM 8.1 MG/DL (8.5-10.1); CHLORIDE 102 MEQ/L (98-107); CREATININE 0.74 MG/DL (0.50-1.00); GLOMERULAR FILTRATION RATE 85 ML/MIN (>89); GLUCOSE,RANDOM 86 MG/DL (74-106); MAGNESIUM 1.9 MG/DL (1.5-2.5); SODIUM (NA) 137 MEQ/L (136-145)
[2018-02-25 20:40] LABS: ALT (GPT) 27 U/L (10-53)
[2018-02-25 20:42] LABS: ALKALINE PHOSPHATASE 84 U/L (45-117); TOTAL BILIRUBIN ADULT 0.4 MG/DL (0.2-1.0); TOTAL PROTEIN 7.3 GM/DL (6.4-8.2)
[2018-02-25 21:20] LABS: BANDS 4 % (0-6); LYMPHOCYTES 7 % (9-44); MONOCYTES 1 % (0-8); NEUTROPHIL # MANUAL DIFF 10.3 TH/MM3 (1.8-7.7); POLYS (SEG NEUTROPHILS) 87 % (16-70)
[2018-02-25 22:15] LABS: BILIRUBIN, URINE NEG (NEG); BLOOD, URINE NEG (NEG); GLUCOSE,URINE NEG (NEG); KETONE, URINE NEG (NEG); MUCUS URINE FEW /lpf (OCC); NITRITE,URINE NEG (NEG); PH, URINE 8.5 (5.0-8.5); SQUAMOUS EPITHELIAL CELL URINE 1 /hpf (0-5); URINE COLOR LIGHT-YELLOW (YELLW/STRAW); URINE LEUKOCYTE ESTERASE NEG (NEG)
--- NOTE | 2018-02-26 12:29 | EKG ---
Date Performed: 02/25/2018 Time Performed: 19:21:32 PTAGE: 42 years EKG: SINUS TACHYCARDIA POSSIBLE LEFT ATRIAL ENLARGEMENT POSSIBLE RIGHT VENTRICULAR CONDUCTION DE LAY Nonspecific T-wave changes ABNORMAL RHYTHM ECG Since PREVIOUS TRACING , no significant change noted PREVIOUS TRACIN02/17/2018 07.42 DOCTOR: Win Domínguez Interpretating Date/Time 02/26/2018 12:27:31
== END 2018-02-25 22:48 | disposition home or self-care (01) ==
LOC: NEPE 17:59
DX: R55 Syncope and collapse (principal); R94.31 Abnormal electrocardiogram [ECG] [EKG]; I69.354 Hemiplegia and hemiparesis following cerebral infarction affecting left non-dominant side; F32.9 Major depressive disorder, single episode, unspecified
CPT/HCPCS: 80053; 81001; 83735; 85007; 85027; 85610; 85730; 93005; 99284; J7030

== ENCOUNTER 2018-03-06 08:09 | Day surgery (SDC) | payer OTHER ==
[~2018-03-06] VITALS: Ht 157.5 cm; Wt 56.3 kg
[~2018-03-06 08:09] MED LIST changes: +CELE20TA PO; +NS 1000P @30 MLS/HR (KVO) IV SCH
[2018-03-06] MEDS ORDERED: IOHEXOL 350 MG/ML 50 ML BTL (for Cath Lab) OTHER ONE (08:10)
[2018-03-06] MEDS ORDERED: WARF-20 PO (08:47)
[2018-03-06 09:08] LABS: AUTOMATED NEUTROPHIL # 5.1 TH/MM3 (1.8-7.7); BASOPHIL # 0.1 TH/MM3 (0-0.2); EOSINOPHIL # 0.3 TH/MM3 (0-0.4); EOSINOPHIL % 3.9 % (0.0-4.0); HEMATOCRIT 36.9 % (35.0-46.0); HEMOGLOBIN 12.4 GM/DL (11.6-15.3); LYMPH % 19.5 % (9.0-44.0); LYMPHOCYTE # 1.5 TH/MM3 (1.0-4.8); MEAN CELL VOLUME 87.3 FL (80.0-100.0); MEAN CORPUSCULAR HEMOGLOBIN 29.4 PG (27.0-34.0); MEAN CORPUSCULAR HGB CONC 33.7 % (32.0-36.0); MEAN PLATELET VOLUME 7.4 FL (7.0-11.0); MONO % 9.8 % (0.0-8.0); MONOCYTE # 0.8 TH/MM3 (0-0.9); NEUT % 65.8 % (16.0-70.0); PLATELET COUNT 408 TH/MM3 (150-450); RED BLOOD COUNT 4.22 MIL/MM3 (4.00-5.30); RED CELL DISTRIBUTION WIDTH 14.9 % (11.6-17.2); WHITE BLOOD COUNT 7.8 TH/MM3 (4.0-11.0)
[2018-03-06 09:16] LABS: INTERNATIONAL NORMALIZED RATIO 1.1 RATIO; PROTHROMBIN TIME - PATIENT 11.3 SEC (9.8-11.6)
[2018-03-06] MEDS ORDERED: methylPREDNISolone SOD SUCC 125 MG/2 ML VIAL ONE (09:19)
[2018-03-06] MEDS ORDERED: diphenhydrAMINE HCL 50 MG/ML VIAL ONE (09:19)
[2018-03-06] MEDS ORDERED: FAMOTIDINE 20 MG/2 ML VIAL IV PUSH ONE (09:30)
[2018-03-06] MEDS ORDERED: diphenhydrAMINE HCL 50 MG/ML VIAL IV PUSH ONE (09:30)
[2018-03-06] MEDS ORDERED: methylPREDNISolone SOD SUCC 125 MG/2 ML VIAL IV PUSH ONE (09:30)
[2018-03-06 09:36] LABS: BICARBONATE 24.7 MEQ/L (21.0-32.0); BLOOD UREA NITROGEN 12 MG/DL (7-18); CALCIUM 8.6 MG/DL (8.5-10.1); CHLORIDE 107 MEQ/L (98-107); CREATININE 0.75 MG/DL (0.50-1.00); GLOMERULAR FILTRATION RATE 84 ML/MIN (>89); GLUCOSE,RANDOM 83 MG/DL (74-106); SODIUM (NA) 139 MEQ/L (136-145)
[2018-03-06] MEDS ORDERED: MIDAZOLAM HCL 2 MG/2 ML VIAL ONE (12:05)
[2018-03-06] MEDS ORDERED: HEPARIN-NS/PF FLUSH BAG 2,000 ML IV FLUSH ONE (12:06)
[2018-03-06] MEDS ORDERED: LIDOCAINE HCL 1% PF 30 ML VIAL ONE (12:08)
[2018-03-06] MEDS ORDERED: VERAPAMIL HCL 5 MG/2 ML VIAL ONE (12:10)
[2018-03-06] MEDS ORDERED: HEPARIN SODIUM - IV 10,000 UNITS/10 ML VIAL ONE (12:11)
[2018-03-06] MEDS ORDERED: NITROGLYCERIN INJ 5 ML ONE (12:11)
--- NOTE | 2018-03-06 12:55 | CATHPROC ---
[place] HIS Report Study Information Study Number Admission Scheduled Start Study Start [id number] Mar 06 2018 8:09AM 03/06/2018 Mar 06 2018 11:47AM [place] [facility] Cardiac Catheterization Admit Source Facility Department Other [facility] - Administrative Manager Physician and Clinical Staff Initial Jr [place] Corporate Travel Manager Srinivas Wu,CLAY Recorder Edna Guzmán,RT(R) Scrub Sera MullerRT(R) (BS) Procedures Performed Procedure Location (Site) Vessel Name Coronary Angiograms LCA Left Coronary Coronary Angiograms RCA Right Coronary L Heart Cath Wire insertion Radial (right) Radial Art. Equipment Time Electrician Radio Description Size Mfg Part Number Used/Scraped TRANSDUCER, TRUWAVE [id number] 11:51 IVEY DUQUE * Used W/STOCKCOCK *[id number] *[id number] *[id number] 11:51 [employer] PACK, CCL CUSTOM * Used *[id number] 11:51 [employer] SUPPORT, ARTERIAL ADULT 79215 *[id number] Used BAND, RADIAL COMPRESSION TR [id number] 12:40 [employer] MEDICAL 24CM Used SHORT 24 *[id number] 11:51 [employer] MEDICAL WIRE, EXCHANGE 260CM 3MMJ 260CM Used *[id number] 11:51 NAMIC MANIFOLD, 4 PORT * Used *[id number] 11:51 [employer] OMNIPAQUE, 350 MG, 150ML 150ML [id number] Used [id number] 11:51 [employer],WARM AIR CCL * Used *[id number] SHEATH, FR6 TRANSRADIAL [id number] 11:51 [employer] FR 6 Used SLENDER 10CM *[id number] History: Allergies Allergy Reaction Shellfish shellfish derived kiwi History: Risk Factors Family History of Hypertension Dyslipidemia Previous MO Previous Heart Failure Premature CAD No No Yes No No Prior Valve Prior PCI Prior CABG Surgery No No No Cerebrovascular Peripheral Artery Chronic Lung On Dialysis Diabetes Disease Disease Disease No Yes No No No History: Stress Tests Stress or Imaging Studies Performed Yes Standard Exercise Stress Test No Stress Echo No Stress Test SPECT Stress Test SPECT Result Stress Test SPECT Ischemia Risk/Extent Yes Positive Intermediate Stress Test CMR No Cardiac CTA Coronary Calcium Score No No History: Other Current Smoker No Labs Hgb (g/dl) Hct (%) WBC (l/cumm) Platelets (thousands) 11.60-17.00 35.00-51.00 4.00-11.00 150.00-450.00 12.4 36.5 7.8 408 Glucose (mg/dl) BUN (mg/dl) Creatinine (mg/dl) BUN:Creatinine (1:x) 74.00-106.00 7.00-18.00 0.50-1.30 10.00-20.00 83 12 0.7 17.1 Na (meq/l) K (meq/l) 136.00-145.00 3.50-5.10 139 3.9 INR (PTT:PT) 0.90-1.10 1.1 CPK-MB (ng/ML) 0.50-3.60 Not Drawn Medication Medication Total Dose (Bolus/Oral) Medication Total Dosage/Unit 1% XYLOCAINE 10 mL FENTANYL 25 mcg RADIAL COCKTAIL 5 mL (Bolus) VERSED 1 mg Medications (Bolus/Oral) Medication Time Given Dosage/Unit Administered By Reason VERSED 03/06/2018 12:23:15 PM 0.5 mg Srinivas Wu 0.5 mg VERSED given in lab by Srinivas Wu RN in Left Forearm via Peripheral IV. Ordered by Jr Plascenica FENTANYL 03/06/2018 12:23:45 PM 25 mcg Srinivas Wu 25 mcg FENTANYL given in lab by Srinivas Wu RN in Left Forearm via Peripheral IV. Ordered by Jr Sung 1% XYLOCAINE 03/06/2018 12:24:04 PM 10 mL Jr Perera Patient arrived on 10 mL 1% XYLOCAINE given by Jr Perera in Right Radial via Subcutaneous. Ordered by Jr Perera RADIAL COCKTAIL 03/06/2018 12:27:25 PM 5 mL (Bolus) Jr Perera 5 mL (Bolus) RADIAL COCKTAIL given in lab by Jr Perera in Right Radial via Radial. Using [S olution Name]. Ordered by Jr Perera 2.5 verapamil, 2300 units heparin, 200 nitro VERSED 03/06/2018 12:31:45 PM 0.5 mg Srinivas Wu 0.5 mg VERSED given in lab by Srinivas Wu RN in Left Forearm via Peripheral IV. Ordered by Jr Plascencia Medication (Drip) Medication Time Given Dosage/Unit Concentration/Unit Diluent (ml) Solution IV Solutions 03/06/2018 12:01:10 PM 0 mL (IV) 500 NaCl .9 Patient arrived on IV Solutions given by Srinivas Wu RN in Left Forearm via Peripheral IV. Pump/D rip Flow = 20 ml/hr using NaCl .9. Ordered by Jr Perera Initial Case Assessment Cardiovascular HR NIBP Chest Pain 74 139/77 0 Edema Present Skin color Skin None Normal Warm Dry Circulatory - Right Pulses Dorsalis Pedis Femoral Brachial 2 2 2 Scale (0,1,2,3,4,d) Circulatory - Left Pulses Dorsalis Pedis Femoral Brachial 2 2 Scale (0,1,2,3,4,d) Neurological State Oriented to time-place- Alert Moves all extremities person Respiration - General Respiration Rate SpO2 (%) (B/min) 15 96 Final Case Assessment Cardiovascular HR NIBP Chest Pain 73 142/82 0 Edema Present Skin color Skin None Normal Warm Dry Circulatory - Right Pulses Dorsalis Pedis Femoral Brachial 2 2 2 Scale (0,1,2,3,4,d) Circulatory - Left Pulses Dorsalis Pedis Femoral Brachial 2 2 Scale (0,1,2,3,4,d) Neurological State Oriented to time-place- Alert Moves all extremities person Respiration - General Respiration Rate SpO2 (%) (B/min) 9 96 Chronological Log Time Study Chronological Log 11:53:47 Patient arrived via Bed. 11:53:50 Patient Name, D.O.B, / Armband Verified By R.N. 11:57:21 Consent signed by the physician and the patient and verified by the Administrative Manager staff. 11:57:27 Allens test performed on the left radial and ulnar artery. 11:57:33 Patient has been NPO for More than 6Hrs. 11:57:34 Skin Breakdown- None 11:58:24 A # 20 IV was noted in the Forearm (left). Grade = 0 Patient arrived on IV Solutions given by Srinivas Wu RN in Left Forearm via Peripheral IV. Pump/Drip Flow = 20 ml/hr 12:01:10 using NaCl .9. Ordered by Jr Perera Vitals capture started with the following parameters, Patient=Adult, Interval=5 min, Initial Pr xjewhm=995 mmHg, 12:02:04 Deflation Rate=5 mmHg, Cuff placed on Unknown 12:02:31 History and physical on the chart or being dictated. Assessment: Initial Case, HR=74 BPM, TUNK=986/77 mmhg, Chest Pain=0, Edema=None, Color=Normal, Skin = Warm, Dry Right Pulses: Mook Ped=2, Femoral=2, Brachial=2 12:02:34 Left Pulses: Mook Ped=2, Brachial=2 Neurological: State=Alert, Ox3, ROSARIO Respiration: Resp=15 B/min, SpO2=96 % 12:02:38 Reference ECG taken 12:03:08 HR=74 bpm, KOCQ=534/77 mmhg, SpO2=97.0 %, Resp=18 B/min, Pain=0, Payam=10, Klein=2 12:07:41 HR=75 bpm, LLXM=566/87 mmhg, SpO2=98.0 %, Resp=16 B/min, Pain=0, Payam=10, Klein=2 12:09:21 Right Radial and groin(s) prepped with 2% chlorhexidine, and draped after a 3 min. waiting time. 12:12:42 HR=75 bpm, LUSN=599/84 mmhg, SpO2=95.0 %, Resp=19 B/min, Pain=0, Payam=10, Klein=2 12:16:20 Pressure channel 1 zeroed. 12:16:37 MD arrived. 12:17:43 HR=76 bpm, JJXK=812/84 mmhg, SpO2=96.0 %, Resp=18 B/min, Pain=0, Payam=10, Klein=2 12:22:40 HR=68 bpm, XLVJ=469/89 mmhg, SpO2=94.0 %, Resp=18 B/min, Pain=0, Payam=10, Klein=2 Time Out. Correct patient, correct procedure, correct physician, power injector not loaded with contrast with surgical 12:22:54 team present. Time Out Concurred by MD and individual staff in procedure. 12:23:11 Case Start 12:23:15 0.5 mg VERSED given in lab by Ferlitto, Srinivas, RN in Left Forearm via Peripheral IV. Ordered by Jr Perera 12:23:45 25 mcg FENTANYL given in lab by Srinivas Wu RN in Left Forearm via Peripheral IV. Order ed by Jr Perera. Patient arrived on 10 mL 1% XYLOCAINE given by Jr Perera in Right Radial via Subcutan eous. Ordered by 12:24:04 Jr Perera ::25 Access site was Radial Artery. A SHEATH, FR6 TRANSRADIAL SLENDER 10CM FR 6 was advanced into the Radial (right) using the Adelaida fied Seldinger 12::45 technique. 5 mL (Bolus) RADIAL COCKTAIL given in lab by Jr Perera in Right Radial via Radial. Us ing [Solution Name]. 12::25 Ordered by Jr Perera. 2.5 verapamil, 2300 units heparin, 200 nitro 12:27:41 HR=80 bpm, OMRK=054/100 mmhg, SpO2=95.0 %, Resp=13 B/min, Pain=0, Payam=10, Klein=2 A JR 4.0 INFINITI CATHETER FR 5 was advanced over a wire. OMNIPAQUE, 350 MG, 150ML 150ML was us ed for 12:29:02 injections. 12:29:30 NIBP STAT measurement started. 12:30:06 HR=72 bpm, MMNH=589/86 mmhg, SpO2=95.0 %, Resp=14 B/min, Pain=0, Payam=10, Klein=2 Recorded Pressure: LV, HR=79, Condition=Condition 1 12:30:20 (Left Ventricle) LV 144/2/7 Recorded Pressure: LV, Ao, HR=85, Condition=Condition 1 12:30:36 (Left Ventricle) LV 140/5/8, (Aorta) Ao 160/106/130 Recorded Pressure: Ao, HR=84, Condition=Condition 1 12:30:48 (Aorta) Ao 145/94/118 12:31:45 0.5 mg VERSED given in lab by Srinivas Wu, CLAY in Left Forearm via Peripheral IV. Ordered by Jr Perera 12:32:45 The RCA was injected and visualized at various angles. OMNIPAQUE, 350 MG, 150ML 150ML used . 12:32:46 HR=80 bpm, OYBE=376/91 mmhg, SpO2=93.0 %, Resp=17 B/min, Pain=0, Payam=10, Klein=2 After removing the current catheter a JL 3.5 INFINITI CATHETER FR 5 was advanced over a WIRE, E XCHANGE 260CM 12:34:30 3MMJ 260CM. 12:37:45 HR=79 bpm, LCIH=723/86 mmhg, SpO2=95.0 %, Resp=17 B/min, Pain=0, Payam=10, Klein=2 12:37:50 The LCA was injected and visualized at various angles. OMNIPAQUE, 350 MG, 150ML 150ML used . 12:39:30 A WIRE, EXCHANGE 260CM 3MMJ 260CM was inserted via Radial (right). 12:39:42 Catheter was removed 12:40:18 Case End 12:40:37 Catheter(s) removed without difficulty Radial Compression Device Used. 9 mLs of air placed in BAND, RADIAL COMPRESSION TR SHORT 24 24C M. Affected 12:40:40 hand 96 % O2 saturation. 12:42:46 HR=73 bpm, HOXO=412/82 mmhg, SpO2=96.0 %, Resp=9 B/min, Pain=0, Payam=10, Klein=2 12:44:30 No case complications noted. 12:44:33 Cine recording checked. 12:44:36 Bedside Report will be given. 12:44:46 A Left Heart Cath was performed. 12:47:25 Vitals capture stopped. Assessment: Final Case, HR=73 BPM, GSEC=415/82 mmhg, Chest Pain=0, Edema=None, Color=Normal, S kin = Warm, Dry Right Pulses: Mook Ped=2, Femoral=2, Brachial=2 12:47:30 Left Pulses: Mook Ped=2, Brachial=2 Neurological: State=Alert, Ox3, ROSARIO Respiration: Resp=9 B/min, SpO2=96 % 12:48:27 Patient moved to stretcher End Study - Contrast Media Used In Study Contrast Total Opened (mL) Total Used (mL) Total Wasted (mL) Omnipaque 40 40 0 End Study - Maximum Contrast Load Max Contrast Load (mL) 402.3 End Study - Radiation Exposure Fluoro Time (minutes) 3.0 End Study - Patient Disposition Complications Transferred To No Telemetry Bed
[2018-03-06] MEDS ORDERED: MISC INFORMATION XX ONE (13:00)
--- NOTE | 2018-03-06 15:51 | EKG ---
Date Performed: 03/06/2018 Time Performed: 09:07:58 PTAGE: 42 years EKG: Sinus rhythm with interpolated PVC(s). rSr'(V1) - probable normal variant Extensive ST-T changes may be due to my ocardial ischemia Compared to previous tracing, patient is now in a sinus rhythm with occasional PVCs Abnormal ECG PREVIOUS TRACING : 02/25/2018 19.21 DOCTOR: Milton Montalvo Interpretating Date/Time 03/06/2018 15:49:38
--- NOTE | 2018-03-07 09:35 | MA ---
cc: Jr Perera DO DATE: 03/06/2018 PROCEDURE PERFORMED: Left heart catheterization, coronary angiogram, moderate sedation 15 minutes. PREPROCEDURE DIAGNOSIS: Abnormal stress test, preoperative cardiovascular exam. POSTPROCEDURE DIAGNOSIS: Mild coronary artery disease. MEDICATIONS: Versed 1 mg, fentanyl 25 mcg, nitroglycerine 200 mcg, verapamil 2.5 mg, heparin. CONTRAST USED: 40 mL. FLUOROSCOPY: 3.0 minutes. SEDATION: Moderate sedation 15 minutes. ESTIMATED BLOOD LOSS: 10 mL. PROCEDURAL SUMMARY: Linda Toledo is a pleasant 42-year-old female whom I see in the office and was evaluated for preop risk assessment. She underwent stress testing, which showed apical ischemia and she was recommended cardiac catheterization. Risks, benefits and alternatives were explained to her and she consented to such. She was brought to the lab and prepped in the usual sterile fashion. The right radial artery was accessed using a modified Seldinger technique and placement of a 5/6-Indonesian slender sheath. This is easily aspirated and flushed. A JR4 was advanced over a J-wire to the ascending aorta and across the aortic valve for measurement of left ventricular pressure. This is pulled back across the aortic valve, showing no significant gradient of aortic stenosis. JR4 was then used for selective angiography of the right coronary artery system. This is exchanged out for a JL 3.5, which was used for selective angiography of the left coronary artery system. JL 3.5 was removed over a J-wire. Radial band was placed over the arteriotomy site for hemostasis. The patient left the lab tester cardiovascularly stable. FINDINGS: Left main normal size vessel with adequate reflux. It bifurcates into an LAD and circumflex. LAD normal size vessel, with no significant disease. Distally, it has mild luminal irregularities, with some tortuosity. It gives off multiple small diagonals. Left circumflex normal size vessel with no significant disease. It gives off 2 major obtuse marginals with no significant disease. RCA normal size vessel, with no disease noted. It is a dominant vessel and supplies the PDA with no significant disease. LVEDP 8. IMPRESSION: 1. Abnormal stress test. 2. Minimal coronary artery disease. 3. Preoperative cardiovascular exam. RECOMMENDATIONS: 1. Ms. Toledo appears to have no significant coronary artery disease. 2. She will be discharged home today. 3. She will be restarted on her Coumadin therapy tonight. 4. She may proceed for her procedure as an intermediate cardiovascular risk. Thank you for allowing me to see Linda Toledo. If there are any questions, please do not hesitate to call. DO KELLY Magaña/BÁRBARA , 12:55 AM , 01:22 AM
== END 2018-03-06 15:49 | disposition home or self-care (01) ==
LOC: HDIC 08:09 → HDOC 08:09
PROVIDERS: ATTEND Nuclear Medicine Nuclear Cardiology
DX: I25.10 Atherosclerotic heart disease of native coronary artery without angina pectoris (principal); Q21.1 Atrial septal defect; Z79.01 Long term (current) use of anticoagulants
CPT/HCPCS: 80048; 84702; 85025; 85610; 85730; 93005; 93458; 99152; C1769; C1893; J1200; J1644; J2250; J2930; J3010; Q9967

== ENCOUNTER → 2018-03-13 | Outpatient (CLI) | payer OTHER ==
[~2018-03-13] MED LIST changes: -ASPI81TA23 PO; -CETI10; -CITA20TA4 PO; -CYCL10TA PO; -DOCU100C15 PO; -HYDR-3516 PO; -NS 1000P @30 MLS/HR (KVO) IV SCH; -VITA500T83 PO; +WARF-20 PO; -WARF-21 PO; -WARF-22 PO; -ZOFR4TAB PO
[2018-03-13 13:11] LABS: INTERNATIONAL NORMALIZED RATIO 2.2 RATIO; PROTHROMBIN TIME - PATIENT 22.2 SEC (9.8-11.6)
== END ==
LOC: CLAB 12:36
PROVIDERS: ATTEND Family Medicine
DX: Z86.73 Personal history of transient ischemic attack (TIA), and cerebral infarction without residual deficits (principal)
CPT/HCPCS: 36415; 85610

== ENCOUNTER → 2018-03-20 | Outpatient (CLI) | payer OTHER, MEDICAID ==
[~2018-03-20] MED LIST changes: +HYDR-3583 PO; +WARF-21 PO; +WARF-23 PO
[2018-03-20 10:53] LABS: PROTHROMBIN TIME - PATIENT 9.9 SEC (9.8-11.6)
== END ==
LOC: CPRE 09:59
PROVIDERS: ATTEND Neurological Surgery
DX: Z01.812 Encounter for preprocedural laboratory examination (principal); I61.9 Nontraumatic intracerebral hemorrhage, unspecified
CPT/HCPCS: 36415; 85610; 85730; 87640; 87641

== ENCOUNTER 2018-03-21 06:43 | Inpatient (IN) | payer OTHER ==
--- NOTE | 2018-03-20 14:14 | MH ---
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 She had t-PA, Coumadin and a craniectomy to relieve pressure at [facility]. Because this was felt to be due to a patent foramen ovale, it has since been repaired. Due to Coumadin therapy her cycles have been very heavy leading to severe anemia. Her endometrial biopsy from 11/03/2017 was benign. Her Pap smear from 05/04/2016 was benign. Her vaginal ultrasound from 10/18/2017 showed a uterus which measured 8.3 cm and normal-appearing ovaries. She is now admitted for cranioplasty with Dr. Nathan. I will perform a NovaSure ablation while she is off anticoagulant therapy. MEDICATIONS: She has a list. ALLERGIES: NONE. OB HISTORY: Three vaginal deliveries. SOCIAL HISTORY: He has had 3 vaginal deliveries. 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 She is . Alcohol, tobacco and drugs are none. FAMILY HISTORY: Noncontributory. R RECENT PROCEDURE: Had cardiac catheterization on 03/06/2018. PHYSICAL EXAMINATION: GENERAL: Reveals a well-developed, white female. VITAL SIGNS: Stable. HEENT: Shows the effect of the craniectomy. EXTREMITIES: Normal. HEART: Regular rate. CHEST: Clear. BREASTS: Symmetrical. ABDOMEN: Benign. PELVIC: Normal external genitalia and BUS. Vagina is normal. Cervix normal. Uterus is normal in size and shape. Adnexa is nonpalpable. ASSESSMENT: As above. PLAN: She is now admitted for a NovaSure ablation and Dr. Nathan will follow that with a cranioplasty. While in the office, I explained the procedure, its risks, benefits and complications including infection, injury, bleeding, and recurrent bleeding. She would like to proceed. MD ASHLEY Wild/RAJ , 01:50 PM , 02:13 PM
[~2018-03-21] VITALS: Ht 157.5 cm; Wt 76.0 kg
[~2018-03-21 06:43] MED LIST changes: -HYDR-3583 PO; -WARF-21 PO; -WARF-23 PO
[2018-03-21] MEDS ORDERED: ACETAMINOPHEN 1000 MG/100 ML 100 ML IV ONE (07:01)
[2018-03-21] MEDS ORDERED: VANCOMYCIN 1 GM/200 ML PREMIX ON-CALL IV SCH (07:30)
[2018-03-21] MEDS ORDERED: POVIDONE IODINE 5% (ANTISEPSIS KIT) 4 APPLICATIONS EACH NARE PRN (07:30)
[2018-03-21] MEDS ORDERED: SODIUM CHLOR 0.9% 1000 ML INJ 1,000 ML IV SCH (07:30)
[2018-03-21] MEDS ORDERED: CHLORHEXIDINE GLUCONATE 2 % 1 PACK (2 CLOTHS) TOPICAL PRN (07:30)
[2018-03-21] MEDS ORDERED: SODIUM CHLORID 0.9% 500 ML IV PRN (07:30)
[2018-03-21] MEDS ORDERED: LACTATED RINGER'S 1000 ML IV PRN (07:30)
[2018-03-21] MEDS ORDERED: METOPROLOL TARTRATE 25 MG TAB PO PRN (07:30)
[2018-03-21] MEDS ORDERED: GELFOAM SIZE 100 ONE (08:28)
[2018-03-21] MEDS ORDERED: GENTAMICIN SULFATE 80 MG/2 ML VIAL ONE ×2 (08:28→10:25)
[2018-03-21] MEDS ORDERED: THROMBIN (TOPICAL) 5,000 UNIT VIAL ONE (08:28)
[2018-03-21] MEDS ORDERED: ceFAZolin 2 GM PREMIX 50 ML ONE (08:37)
[2018-03-21] MEDS ORDERED: levETIRAcetam 500 MG/5 ML VIAL IV ONE (09:26)
[2018-03-21] MEDS ORDERED: MANNITOL INJ 100 ML ONE (09:27)
[2018-03-21] MEDS ORDERED: LIDOCAINE 1%/EPINEPHrine 1:100,000 SOLN 30 ML VIAL ONE (09:29)
[2018-03-21] MEDS ORDERED: BACITRACIN TOP OINT 15 GM TUBE ONE (09:29)
[2018-03-21] MEDS ORDERED: ONDANSETRON HCL 4 MG/2 ML VIAL IV PUSH PRN (09:30)
[2018-03-21] MEDS ORDERED: BISACODYL 10 MG SUPP RECTAL PRN (09:30)
[2018-03-21] MEDS ORDERED: BUPIVACAINE/EPINEPHRINE 0.5% PF 30 ML VIAL ONE (09:30)
[2018-03-21] MEDS ORDERED: CALCIUM GLUCONATE 10% 1 GM/10 ML VIAL IV PRN (09:30)
[2018-03-21] MEDS ORDERED: MAGNESIUM SULFATE INJ 4 GM in SODIUM CHLORIDE 0.9% INJ 100 ML IV PRN (09:30)
[2018-03-21] MEDS ORDERED: MORPHINE SULFATE 4 MG/ML INJ IV PUSH PRN ×2 (09:30)
[2018-03-21] MEDS ORDERED: ACETAMINOPHEN 325 MG TAB PO PRN (09:30)
[2018-03-21] MEDS ORDERED: POTASSIUM CHLOR 20 MEQ PREMIX 100 ML IV PRN (09:30)
[2018-03-21] MEDS ORDERED: ACETAMINOPHEN/HYDROcodone 325 MG/10 MG TAB PO PRN (09:30)
--- NOTE | 2018-03-21 09:32 | MP ---
cc: Juancho Glover MD, Federico C MD DATE OF OPERATION: 03/21/2018 PREOPERATIVE DIAGNOSES: Menorrhagia and anemia secondary to anticoagulant therapy. POSTOPERATIVE DIAGNOSES: Menorrhagia and anemia secondary to anticoagulant therapy. PROCEDURE PERFORMED: NovaSure ablation with hysteroscopy. ANESTHESIA: General, ET. SURGEON: Juancho Glover MD. STRANDING MACHINE OPERATOR: Sophia. ESTIMATED BLOOD LOSS: Less than 5 mL. FLUIDS: About 200 mL of crystalloid. OBJECTIVE FINDINGS: Following induction of adequate general endotracheal anesthesia, the patient was prepped and draped supine on the operating table in the dorsal lithotomy position. The right leg suspended in hanging stirrup. The left leg was held by the nurse perioperative assistant to ensure proper positioning and avoid over extension due to her previous changes from her CVA. She was prepped and draped with the bladder being drained with Head catheterization. Exam under anesthesia revealed a normal size and shape anterior uterus. A heavy weighted speculum was placed in the posterior fornix of the vagina. The anterior lip of the cervix grasped with a single-tooth tenaculum. The cervix sounded to 2.5 cm internal os, 9 to the fundus. Cervix dilated with a #20 Hanks dilator. NovaSure wand was deployed for a cavity length of 6.5 and a cavity width of 4.1. The device was then enabled. When complete, the wand extracted intact. The hysteroscope was passed and revealed completion of the procedure. The tenaculum site was sutured with 3-0 chromic with good hemostasis. All instruments were removed. All counts were correct. The patient's legs were placed supine on the table. The patient was now prepared for Dr. Nathan' portion of the surgery. Juancho Glover MD JAW/DL , 09:09 AM , 09:32 AM
[2018-03-21] MEDS ORDERED: HYDR-3583 PO (09:38)
--- NOTE | 2018-03-21 09:39 | HHI.DS ---
Discharge Summary Admission Date Mar 21, 2018 at 06:43 Discharge Date: Mar 22, 2018 Admitting Diagnosis (1) CVA (cerebral vascular accident) Diagnosis: Secondary ICD Code: I63.9 - Cerebral infarction, unspecified Status: Chronic Procedures Right frontotemporal parietal cranioplasty Brief History 43 yo female, status npost CVA with large cranial skull defect. She underwent an elective reconstructive cranioplasty Hospital Course Stable, unremarkable Pt Condition on Discharge: Good Discharge Disposition: Discharge Home Discharge Instructions DIET: Follow Instructions for: As Tolerated, No Restrictions Speech Therapy-Diet Recommenda: Regular ACTIVITIES You can perform: Weight Bearing As Nicholas Activities to Avoid: Strenuous Activity ADDITIONAL Activity Instructio: Avoid strenuous activity, avoid falls Garry Nathan MD Mar 21, 2018 09:39
--- NOTE | 2018-03-21 09:42 | HHI.DS ---
Discharge Summary Admission Date Mar 21, 2018 at 06:43 Discharge Date: Mar 22, 2018 Admitting Diagnosis Cranial skull defect (1) Spastic hemiparesis affecting nondominant side Diagnosis: Principal ICD Code: G81.10 - Spastic hemiplegia affecting unspecified side Status: Chronic Procedures Cranioplasty Brief History 43 year old female admitted with a large cranial skull defect. Elective cranioplasty8 done Hospital Course Stable Pt Condition on Discharge: Good Discharge Disposition: Discharge Home Discharge Instructions DIET: Follow Instructions for: As Tolerated, No Restrictions Speech Therapy-Diet Recommenda: Regular ACTIVITIES You can perform: Weight Bearing As Nicholas, Shower Only-No Bath Activities to Avoid: Concussion Sports, Contact Sports, Lifting/Bending, Strenuous Activity, Bathing, Driving, Sexual Activity ADDITIONAL Activity Instructio: Avoid strenuous activity, avoid falls Garry Nathan MD Mar 21, 2018 09:42
--- NOTE | 2018-03-21 10:54 | PD.OP ---
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 A cranioplasty was indicated. The jvsr-jt-meed details of the procedure, indications, alternatives , risks and potential complications were fully discussed with the patient and her mother. The patient fully understood. All his questions were answered. No guarantees were given. The patient voiced requesting the procedure and provided informed consents. He was offered the alternative of delaying the procedure and continuing with nonsurgical management. DETAILS OF THE SURGICAL PROCEDURE The patient was endotracheally intubated and mechanically ventilated. A Head catheter, bilateral ADDIE hose and sequential compression devices were placed and kept throughout the procedure. The patient was positioned supine on a 3080 table over a soft mattress. The head was placed on a gel doughnut. All pressure points were carefully padded with egg crate mattress. The eyes were tapped shut after ointment was applied by the nesthesiologist to prevent corneal abrasion. A Jose Rafael hugger was placed over the exposed lower body to maintain control of the core body temperature. The old incision was marked and infiltrated with 1% lidocaine with epinephrine 1:100, 000 dilution. The skin incision was made on the right frontotemporoparietal region with a #10 blade. Small cranial bleeders were controlled with the bipolar and Selin clips were applied to the scalp edges. Then, the scalp flap was carefully dissected, elevated and retracted anteriorly , exposing the edges of the craniectomy defect. Hemostasis was secured and the incision was irrigated with a large amount of antibiotic solution. Then, the scalp was covered with a moist Ray-Lizabeth soaked in antibiotic solution and fishhooks were applied to the incision. The patient's craniotomy flap was carefully washed with antibiotic solution and a reconstructive cranioplasty was performed by carefully placing autologous bone carefully secured using striker plates and screws. The flap was secured using Roberto plates and 4 and 5 mm screws. A solid placement of the bone was achieved with good very cosmetic result. The incision was thoroughly irrigated with antibiotic solution. The closure was then performed in layers. The temporalis fascia was closed with interrupted 0 Vicryl sutures. The galea was closed with interrupted 3-0 Vicryl sutures. Kinnear were applied to the skin. A 7 mm Pavan-Ariza drain was left in the subgaleal space and externalized through the a separate stab incision and secured with 3-0 nylon. A sterile dressing was placed. At the end of the procedure the sponge, needle and instrument counts were all correct. Estimated blood loss was 80-100 cc. No blood transfusion was given. No intraoperative complications occurred. The patient received prophylactic antibiotics. The patient was then transferred to the recovery room in stable condition. Garry Nathan MD Mar 21, 2018 10:54
[2018-03-21] MEDS ORDERED: CALCIUM GLUCONATE INJ 1 GM in SODIUM CHLORIDE 0.9% INJ 100 ML IV PRN (11:15)
[2018-03-21] MEDS ORDERED: MEPERIDINE HCL 50 MG/ML VIAL ONE (11:48)
[2018-03-21] MEDS ORDERED: DO NOT ADM ANY ANTICOAGULANT DRUGS PRN (11:52)
[2018-03-21] MEDS ORDERED: LIDOCAINE HCL 1% PF 5 ML SYRINGE OTHER ONE (12:00)
[2018-03-21] MEDS ORDERED: ROCURONIUM INJ 50 MG/5 ML SYRINGE IV PUSH ONE (12:00)
[2018-03-21] MEDS ORDERED: GLYCOPYRROLATE 1 MG/5 ML SYRINGE IV PUSH ONE (12:00)
[2018-03-21] MEDS ORDERED: NEOSTIGMINE 5 MG/5 ML SYRINGE IV PUSH ONE (12:00)
[2018-03-21] MEDS ORDERED: DEXAMETHASONE SOD PHOS 4 MG/ML VIAL IV ONE (12:00)
[2018-03-21] MEDS ORDERED: LACTATED RINGER'S 1000 ML INJ 2,000 ML IV ONE (12:00)
[2018-03-21] MEDS ORDERED: ONDANSETRON HCL 4 MG/2 ML VIAL IV ONE (12:00)
[2018-03-21] MEDS ORDERED: PROPOFOL 200 MG/20 ML AMP IV ONE (12:00)
[2018-03-21] MEDS ORDERED: MIDAZOLAM HCL 2 MG/2 ML VIAL ONE (12:08)
[2018-03-21] MEDS ORDERED: MORPHINE SULFATE 4 MG/ML INJ ONE (12:09)
[2018-03-21] MEDS ORDERED: *morphine SULFATE 4 MG/ML PERIprocedure ONLY ONE ×2 (12:47→13:26)
[2018-03-21] MEDS: NS + KCL 20 MEQ INJ 1,000 ML IV SCH ×2 (13:00→22:55)
--- NOTE | 2018-03-21 13:58 | PD.CONS ---
[facility] Service Critical Care Medicine Consult Requested By Dr. Nathan Reason for Consult Critical care medicine management Primary Care Physician Tenzin Villalba MD History of Present Illness This is a 43-year-old female. Date of admission 03/21/2018. Date of consultation 03/21/2018. Past medical history includes acute CVA with residual left-sided weakness with craniotomy with right-sided cranioplasty 2016, PFO closure 2016. She has history of gastroesophageal disease, depression and allergic rhinitis, seizures and chronic anticoagulation with warfarin. Patient was cleared preoperatively by Dr. Villalba. Was recently admitted 02/12 with syncope. Patient had an echocardiogram at that time which revealed EF around 70 % with appropriate placement of PFO closure device. Patient had a cardiac catheterization by Dr. Perera 03/06/18. Today, patient underwent a NovaSure ablation with hysteroscopy by Dr. Glover and right frontotemporoparietal cranioplasty bone flap replaced with Dr. Nathan. 2000 cc crystalloid. 100 cc EBL. 400 cc urine output. Patient is currently awake and alert and seen in PACU requesting ice chips. Receiving morphine sulfate for headache at the present time. Review of Systems Constitutional: DENIES: Fatigue, Fever, Weight gain, Weight loss Endocrine: DENIES: Polydipsia, Polyuria Eyes: DENIES: Blurred vision, Eye pain Ears, nose, mouth, throat: DENIES: Tinnitus Respiratory: DENIES: Apneas Cardiovascular: DENIES: Chest pain, Claudication Gastrointestinal: DENIES: Nausea, Vomiting Genitourinary: COMPLAINS OF: Dysmenorrhea, DENIES: Urinary frequency, Urinary incontinence Musculoskeletal: DENIES: Joint pain Integumentary: DENIES: Abnormal pigmentation Hematologic/lymphatic: DENIES: Bruising Immunologic/allergic: DENIES: Eczema Neurologic: COMPLAINS OF: Headache, Localized weakness, DENIES: Seizures, Speech Problems Psychiatric: DENIES: Anxiety, Confusion Past Family Social History Allergies: Coded Allergies: kiwi (Verified Allergy, Unknown, 03/21/18) shellfish derived (Unverified Allergy, Unknown, 03/21/18) Past Medical History History of right CVA with left-sided residual weakness History of PFO Depression Gastroesophageal reflux disease Seizure disorder Chronic warfarin use Allergic rhinitis Iron deficiency anemia Past Surgical History Status post decompressive craniotomy with right cranioplasty PFO closure Reported Medications Baclofen 10 mg p.o. 3 times daily Citalopram 20 mg p.o. daily Ferrous fumarate 324 mg p.o. twice daily Fluticasone 50 mcg/actuation nasal spray suspension daily Levetiracetam 5 mg p.o. twice daily Pantoprazole 40 mg p.o. twice daily Sucralfate 1 g by mouth twice daily Warfarin 7.5 mg daily except Tuesday 10 mg daily Aspirin 81 mg p.o. daily Active Ordered Medications Reviewed in EMR Family History Mother and father are intact and is noncontributory. Denies family history Social History Former tobacco use. Quit. Former alcohol use but not current. No documentation of illicit drug use. Physical Exam Vital Signs Vital Signs Date Time Temp Pulse Resp B/P (MAP) Pulse Ox O2 Delivery O2 Flow Rate FiO2 03/21/18 07:30 97.8 57 20 122/81 (95) 98 Physical Exam GENERAL: 43-year-old female currently resting in bed in no acute distress SKIN: Warm and dry. No rash HEAD: Status post right cranioplasty with PJ currently in place with sanguinous output EYES: Pupils equal and round. No scleral icterus. No injection or drainage. ENT: No nasal bleeding or discharge. Mucous membranes pink and moist. NECK: Trachea midline. No JVD. CARDIOVASCULAR: Regular rate and rhythm. S1, S2. No S4. Without murmur RESPIRATORY: No accessory muscle use. Clear to auscultation. Breath sounds equal bilaterally. GASTROINTESTINAL: Abdomen soft, non-tender, nondistended. Hepatic and splenic margins not palpable. MUSCULOSKELETAL: Extremities without significant peripheral edema. No obvious deformities. NEUROLOGICAL: Awake and alert. No obvious cranial nerve deficits. Left upper l and ower extremity subjectively weaker compared to right. PSYCHIATRIC: Appropriate mood and affect; insight and judgment normal. Septic Shock Reassessment Septic shock perfusion: reassessment completed Assessment and Plan Assessment and Plan Neuro/Psych: Postop day #0 right frontotemporal parietal cranioplasty with bone flap placement History of right CVA with left-sided residual weakness Seizure disorder Currently on hydrocodone/acetaminophen 10/325 1-2 tablets every 4 hours as needed pain 1 through 10 Continue levetiracetam 500 mg twice daily/home medication Currently holding baclofen 10 mg 3 times daily for muscle relaxant. Resume clinically indicated Resume citalopram 20 milligrams p.o. daily for depression. Acetaminophen 650 mg as needed for fever CV: Status post PFO closure 09/13 Currently normal saline with 20 mEq KCl at 100 cc an hour Currently not requiring vasopressors and/or antihypertensives Recent cardiac catheterization 03/06/[address] Perera 2D echocardiogram 02/12 revealed EF around 70%. 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 Glover for menorrhagia Postop management per EXECUTIVE DIRECTOR CONTRACT SHOP Endo: Sliding scale insulin if indicated to maintain euglycemia Renal: Follow-up a.m. laboratories with creatinine. Baseline within normal limits Monitor urine output Accurate I's and O's Heme: Chronic warfarin use Previously on warfarin 7.5 mg daily exception of Tuesday which is 10 mg daily. Previously bridge with heparin? Per neurology for history of CVA ID: Postoperative antibiotics with cefazolin 2 g IV every 8 hours 2 dosages per surgery Monitor for infection FEN: Replace electrolytes as clinically indicated MSK: PT evaluate and treat Access -Utilize peripheral IV. Central line if indicated Prophylaxis -GI -pantoprazole -DVT -SCD/pharmacologic prophylaxis when okay with neurosurgery/EXECUTIVE DIRECTOR CONTRACT SHOP Level 2 consult Code Status Full code Discussed Condition With Patient. Care plan discussed and all questions answered. Jamison Purcell MD Mar 21, 2018 13:58
[2018-03-21 16:00] VITALS: BP 121/71; PULSE 70; PULSE 85; RESP 14; TEMP 98.6; O2SAT 95
[2018-03-21] MEDS: ceFAZolin 2 GM PREMIX 50 ML IV SCH (16:11)
[2018-03-21] MEDS: FERROUS SULFATE 325 MG (65 MG ELEMENTAL IRON) TAB PO SCH (16:11)
[2018-03-21 16:31] VITALS: O2SAT 96
[2018-03-21 18:00] VITALS: PULSE 93
[2018-03-21 20:00] VITALS: BP 107/59; PULSE 78; PULSE 82; RESP 22; TEMP 98.3; O2SAT 94
[2018-03-21] MEDS: DOCUSATE SODIUM 100 MG CAP PO SCH (20:11)
[2018-03-21] MEDS: ACETAMINOPHEN/HYDROcodone 325 MG/10 MG TAB PO PRN (20:11)
[2018-03-21] MEDS: SUCRALFATE 1 GM TAB PO SCH (20:11)
[2018-03-21 20:55] VITALS: O2SAT 95
[2018-03-21 22:00] VITALS: PULSE 70
[2018-03-21] MEDS: levETIRAcetam INJ 500 MG in SODIUM CHLORIDE 0.9% INJ 100 ML IV SCH (22:55)
[2018-03-22] VITALS (11 sets, daily range): BP systolic 102–125; BP diastolic 52–69; PULSE 57–85; RESP 12–16; TEMP 98–98.5; O2SAT 94–98
[2018-03-22] MEDS: ceFAZolin 2 GM PREMIX 50 ML IV SCH ×2 (00:12→09:35)
[2018-03-22] MEDS: ACETAMINOPHEN/HYDROcodone 325 MG/10 MG TAB PO PRN ×2 (00:12→16:59)
[2018-03-22 04:47] LABS: AUTOMATED NEUTROPHIL # 10.3 TH/MM3 (1.8-7.7); BASOPHIL % 0.1 % (0.0-2.0); HEMATOCRIT 29.6 % (35.0-46.0); HEMOGLOBIN 10.2 GM/DL (11.6-15.3); LYMPH % 11.4 % (9.0-44.0); LYMPHOCYTE # 1.5 TH/MM3 (1.0-4.8); MEAN CELL VOLUME 89.7 FL (80.0-100.0); MEAN CORPUSCULAR HEMOGLOBIN 30.9 PG (27.0-34.0); MEAN CORPUSCULAR HGB CONC 34.4 % (32.0-36.0); MEAN PLATELET VOLUME 7.6 FL (7.0-11.0); MONO % 8.3 % (0.0-8.0); MONOCYTE # 1.1 TH/MM3 (0-0.9); NEUT % 80.2 % (16.0-70.0); PLATELET COUNT 414 TH/MM3 (150-450); WHITE BLOOD COUNT 12.8 TH/MM3 (4.0-11.0)
[2018-03-22 05:11] LABS: BICARBONATE 27.2 MEQ/L (21.0-32.0); CREATININE 0.68 MG/DL (0.50-1.00)
--- NOTE | 2018-03-22 06:38 | HHI.CCPN ---
Subjective Remarks/Hospital Course This is a 43-year-old female. Date of admission 03/21/2018. Date of consultation 03/21/2018. Past medical history includes acute CVA with residual left-sided weakness with craniotomy with right-sided cranioplasty 2016, PFO closure 2016. She has history of gastroesophageal disease, depression and allergic rhinitis, seizures and chronic anticoagulation with warfarin. Patient was cleared preoperatively by Dr. Villalba. Was recently admitted 02/12 with syncope. Patient had an echocardiogram at that time which revealed EF around 70 % with appropriate placement of PFO closure device. Patient had a cardiac catheterization by Dr. Perera 03/06/18. Today, patient underwent a NovaSure ablation with hysteroscopy by Dr. Glover and right frontotemporoparietal cranioplasty bone flap replaced with Dr. Nathan. 2000 cc crystalloid. 100 cc EBL. 400 cc urine output. Patient is currently awake and alert and seen in PACU requesting ice chips. Receiving morphine sulfate for headache at the present time. SUBJECTIVE: 03/22: Afebrile. Remains on 2 L nasal cannula. PJ 130 cc SS overnight. Complaining of pruritus with morphine sulfate. Requesting Vistaril. Objective Vital Signs Date Time Temp Pulse Resp B/P (MAP) Pulse Ox O2 Delivery O2 Flow Rate FiO2 03/22/18 04:00 98.2 67 12 123/60 (81) 98 03/21/18 20:55 Nasal Cannula 2.00 Intake and Output 03/22/18 03/22/18 03/22/18 07:59 15:59 23:59 Intake Total 540 ml Output Total 750 ml Balance -210 ml Result Diagram: 03/22/18 0348 03/22/18 0348 Objective Remarks GENERAL: 43-year-old female currently resting in bed in no acute distress SKIN: Warm and dry. No rash HEAD: Status post right cranioplasty with PJ currently in place with sanguinous output EYES: Pupils equal and round. No scleral icterus. No injection or drainage. ENT: No nasal bleeding or discharge. Mucous membranes pink and moist. NECK: Trachea midline. No JVD. CARDIOVASCULAR: Regular rate and rhythm. S1, S2. No S4. Without murmur RESPIRATORY: No accessory muscle use. Clear to auscultation. Breath sounds equal bilaterally. GASTROINTESTINAL: Abdomen soft, non-tender, nondistended. Hepatic and splenic margins not palpable. MUSCULOSKELETAL: Extremities without significant peripheral edema. No obvious deformities. NEUROLOGICAL: Awake and alert. No obvious cranial nerve deficits. Left upper l and ower extremity subjectively weaker compared to right. Left upper lower extremity contracted left lower extremity is currently in a Multi-Podus device PSYCHIATRIC: Appropriate mood and affect; insight and judgment normal. Vascular Central Line Catheter: No Assessment to: Continue A/P Assessment and Plan Neuro/Psych: Postop day #1 right frontotemporal parietal cranioplasty with bone flap placement History of right CVA with left-sided residual weakness Seizure disorder Currently on hydrocodone/acetaminophen 10/325 1-2 tablets every 4 hours as needed pain 1 through 10 Continue levetiracetam 500 mg twice daily/home medication Currently holding baclofen 10 mg 3 times daily for muscle relaxant. Resume clinically indicated Resume citalopram 20 milligrams p.o. daily for depression. Acetaminophen 650 mg as needed for fever CV: Status post PFO closure 09/13 Currently normal saline with 20 mEq KCl at 100 cc an hour Currently not requiring vasopressors and/or antihypertensives Recent cardiac catheterization 03/06/[address] Perera 2D echocardiogram 02/12 revealed EF around 70%. Adequate positioning of intra- atrial septal occluder closure device Resp: Nasal cannula to maintain saturations greater than equal to 92%. Currently on 2 L. 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 Glover for menorrhagia Postop management per BIOMETRICIAN Endo: Sliding scale insulin if indicated to maintain euglycemia Renal: Follow-up a.m. laboratories with creatinine. Baseline within normal limits Monitor urine output Accurate I's and O's Heme: Chronic warfarin use Leukocytosis likely leukemoid type reaction Normocytic anemia Previously on warfarin 7.5 mg daily exception of Tuesday which is 10 mg daily. Previously bridge with heparin? Per neurology for history of CVA. Resume anticoagulation with okay with BIOMETRICIAN and neurosurgery Monitor CBC. ID: Postoperative antibiotics with cefazolin 2 g IV every 8 hours 2 dosages per surgery Monitor for infection FEN: Replace electrolytes as clinically indicated MSK: PT evaluate and treat Access -Utilize peripheral IV. Central line if indicated Prophylaxis -GI -pantoprazole -DVT -SCD/pharmacologic prophylaxis when okay with neurosurgery/BIOMETRICIAN Level 2 follow up Okay to discharge from critical care medicine standpoint Jamison Purcell MD Mar 22, 2018 06:38
[2018-03-22] MEDS ORDERED: PANTOPRAZOLE SOD 40 MG DELAYED RELEASE TAB PO SCH (09:00)
[2018-03-22] MEDS ORDERED: hydrOXYzine PAMOATE 25 MG CAP PO PRN (09:00)
[2018-03-22] MEDS ORDERED: PANTOPRAZOLE SODIUM 40 MG VIAL IVP SCH (09:00)
[2018-03-22] MEDS: FERROUS SULFATE 325 MG (65 MG ELEMENTAL IRON) TAB PO SCH ×2 (09:35→17:49)
[2018-03-22] MEDS: levETIRAcetam INJ 500 MG in SODIUM CHLORIDE 0.9% INJ 100 ML IV SCH ×2 (09:35→22:31)
[2018-03-22] MEDS: CITALOPRAM HYDROBROMIDE 20 MG TAB PO SCH (09:35)
[2018-03-22] MEDS: DOCUSATE SODIUM 100 MG CAP PO SCH ×2 (09:35→19:48)
--- NOTE | 2018-03-22 09:55 | HHI.NSPN ---
(Jarrell Fitzgerald) History Chief Complaint: Incisional pain and headache. (Jarrell Fitzgerald) Interval History 03/22/18: Pt awake and alert. Complains of incisional pain and headache but responds to medication. No nausea vomiting. Patient has chronic left hemiparesis with flexion contractures in the left upper extremity and left lower extremity is in a brace. (Jarrell Fitzgerald) Review of Systems General: Negative for: fever, chills, insomnia Respiratory: Negative for: shortness of breath, cough, sputum Cardiovascular: Negative for: chest pain Gastrointestinal: Negative for: nausea, vomitting, diarrhea, constipation ( Jarrell Fitzgerald) Exam Results Vital Signs Date Time Temp Pulse Resp B/P (MAP) Pulse Ox O2 Delivery O2 Flow Rate FiO2 03/22/18 06:00 57 03/22/18 04:00 98.2 12 123/60 (81) 98 03/21/18 20:55 Nasal Cannula 2.00 Intake and Output 03/22/18 03/22/18 03/23/18 08:00 16:00 00:00 Intake Total 540 ml Output Total 750 ml Balance -210 ml (Jarrell Fitzgerald) Physical Examination General: Pt awake and alert resting in ICU in NAD. Eyes: Pupils equal. Sclera anicteric. Resp: CTA bilaterally Heart: NSR no murmurs Abd: Soft positive bs Skin: Incision clean and dry. PJ drain in place. Muscle: Moves right side well. Left side with flexion contractures in LUE and LLE in brace. Neuro: Pt awake and alert. Follows commands well. Pupils equal and reactive. Speech fluent comprehension good. (Jarrell Fitzgerald) Lab, Micro, Other Results Laboratory Tests Test 03/22/18 03:48 White Blood Count 12.8 TH/MM3 Red Blood Count 3.30 MIL/MM3 Hemoglobin 10.2 GM/DL Hematocrit 29.6 % Mean Corpuscular Volume 89.7 FL Mean Corpuscular Hemoglobin 30.9 PG Mean Corpuscular Hemoglobin Concent 34.4 % Red Cell Distribution Width 15.0 % Platelet Count 414 TH/MM3 Mean Platelet Volume 7.6 FL Neutrophils (%) (Auto) 80.2 % Lymphocytes (%) (Auto) 11.4 % Monocytes (%) (Auto) 8.3 % Eosinophils (%) (Auto) 0.0 % Basophils (%) (Auto) 0.1 % Neutrophils # (Auto) 10.3 TH/MM3 Lymphocytes # (Auto) 1.5 TH/MM3 Monocytes # (Auto) 1.1 TH/MM3 Eosinophils # (Auto) 0.0 TH/MM3 Basophils # (Auto) 0.0 TH/MM3 CBC Comment DIFF FINAL Differential Comment Blood Urea Nitrogen 11 MG/DL Creatinine 0.68 MG/DL Random Glucose 102 MG/DL Calcium Level 8.0 MG/DL Sodium Level 144 MEQ/L Potassium Level 4.1 MEQ/L Chloride Level 109 MEQ/L Carbon Dioxide Level 27.2 MEQ/L Anion Gap 8 MEQ/L Estimat Glomerular Filtration Rate 94 ML/MIN (Jarrell Fitzgerald) Medical Decision Making Impression and Plan A: 43-year-old female status post right cranioplasty Plan: continue to monitor neuro exam follow up CT head tomorrow am. D/C ribera in am. Discharge tomorrow if CT stable and pt does well over night without drain. Addendum: The PJ site was cleaned with ChloraPrep. Lidocaine 1% with epi was used for local anesthesias 2cc. The PJ drain suction was released. The drain was removed. Sterile field and gloves were used and 1 staple was placed with no further drainage. Pt tolerated very well. Sharps were accounted for and placed in sharps container. (Jarrell Fitzgerald) Attending Statement The exam, history, and the medical decision-making described in the above note were completed with the assistance of the mid-level provider. I reviewed and agree with the findings presented. I attest that I had a [id number] encounter with the patient on the same day, and personally performed and documented my assessment and findings in the medical record. (Sher Delgado MD) Jarrell Fitzgerald Mar 22, 2018 9:55 am Sher Delgado MD Mar 22, 2018 5:39 pm
[2018-03-22] MEDS: NS + KCL 20 MEQ INJ 1,000 ML IV SCH (11:00)
[2018-03-22] MEDS ORDERED: LIDOCAINE 1%/EPINEPHrine 1:100,000 SOLN 30 ML VIAL INFIL ONE (14:30)
[2018-03-22] MEDS: SUCRALFATE 1 GM TAB PO SCH (19:48)
[2018-03-23] VITALS (7 sets, daily range): BP systolic 124–136; BP diastolic 66–83; PULSE 58–86; RESP 16–22; TEMP 97.6–98.4; O2SAT 94–96
[2018-03-23] MEDS: ACETAMINOPHEN/HYDROcodone 325 MG/10 MG TAB PO PRN ×4 (03:45→12:08)
[2018-03-23 03:48] LABS: HEMATOCRIT 26.9 % (35.0-46.0); MEAN CELL VOLUME 90.6 FL (80.0-100.0); MEAN CORPUSCULAR HEMOGLOBIN 30.4 PG (27.0-34.0); MEAN CORPUSCULAR HGB CONC 33.5 % (32.0-36.0); MEAN PLATELET VOLUME 7.4 FL (7.0-11.0); PLATELET COUNT 319 TH/MM3 (150-450); RED BLOOD COUNT 2.96 MIL/MM3 (4.00-5.30); WHITE BLOOD COUNT 8.6 TH/MM3 (4.0-11.0)
[2018-03-23 03:58] LABS: INTERNATIONAL NORMALIZED RATIO 0.9 RATIO; PROTHROMBIN TIME - PATIENT 9.4 SEC (9.8-11.6)
[2018-03-23 04:00] LABS: BICARBONATE 27.9 MEQ/L (21.0-32.0); CALCIUM 7.7 MG/DL (8.5-10.1); CREATININE 0.59 MG/DL (0.50-1.00)
--- NOTE | 2018-03-23 04:35 | RADRPT ---
EXAM DATE/TIME: 03/23/2018 03:29 [place] COMPARISON: CT BRAIN W/O CONTRAST, February 17, 2018, 7:58. INDICATIONS : Cephalgia; post bone flap repair. RADIATION DOSE: 56.35 CTDIvol (mGy) MEDICAL HISTORY : Stroke. SURGICAL HISTORY : Craniotomy. ENCOUNTER: Initial ACUITY: 1 day PAIN SCALE: 5/10 LOCATION: cranial TECHNIQUE: Multiple contiguous axial images were obtained of the head. Using automated exposure control and adj ustment of the mA and/or kV according to patient size, radiation dose was kept as low as reasonably a chievable to obtain optimal diagnostic quality images. DICOM format image data is available electro nically for review and comparison. FINDINGS: CEREBRUM: Right cerebral hemisphere infarct again seen. Status post craniotomy with bone flap. No midline shift or mass effect. The ventricles are mildly prominent. No evidence of midline shift, mass lesion, hemo rrhage. No extra-axial fluid collections are seen. POSTERIOR FOSSA: The cerebellum and brainstem are intact. The 4th ventricle is midline. The cerebellopontine angle i s unremarkable. EXTRACRANIAL: The visualized portion of the orbits is intact. SKULL: Right craniotomy. CONCLUSION: Large right MCA distribution infarct.. Jarrell Jason MD on March 23, 2018 at 4:31 Board Certified Radiologist. This report was verified electronically.
[2018-03-23] MEDS ORDERED: POTASSIUM CHLORIDE 20 MEQ CONTROLLED RELEASE TAB PO ONE (07:15)
[2018-03-23] MEDS ORDERED: MAGNESIUM SULFATE 1 GM PREMIX 100 ML IV ONE (07:15)
[2018-03-23] MEDS ORDERED: LORATADINE 10 MG TAB PO ONE (08:00)
[2018-03-23] MEDS: CITALOPRAM HYDROBROMIDE 20 MG TAB PO SCH (08:37)
[2018-03-23] MEDS: DOCUSATE SODIUM 100 MG CAP PO SCH (08:37)
[2018-03-23] MEDS: FERROUS SULFATE 325 MG (65 MG ELEMENTAL IRON) TAB PO SCH (08:37)
[2018-03-23] MEDS ORDERED: FAMOTIDINE 20 MG TAB PO SCH (09:00)
[2018-03-23] MEDS ORDERED: levETIRAcetam 500 MG TAB PO SCH (09:00)
--- NOTE | 2018-03-23 09:03 | HHI.CCPN ---
Subjective Remarks/Hospital Course This is a 43-year-old female. Date of admission 03/21/2018. Date of consultation 03/21/2018. Past medical history includes acute CVA with residual left-sided weakness with craniotomy with right-sided cranioplasty 2016, PFO closure 2016. She has history of gastroesophageal disease, depression and allergic rhinitis, seizures and chronic anticoagulation with warfarin. Patient was cleared preoperatively by Dr. Villalba. Was recently admitted 02/12 with syncope. Patient had an echocardiogram at that time which revealed EF around 70 % with appropriate placement of PFO closure device. Patient had a cardiac catheterization by Dr. Perera 03/06/18. Today, patient underwent a NovaSure ablation with hysteroscopy by Dr. Glover and right frontotemporoparietal cranioplasty bone flap replaced with Dr. Nathan. 2000 cc crystalloid. 100 cc EBL. 400 cc urine output. Patient is currently awake and alert and seen in PACU requesting ice chips. Receiving morphine sulfate for headache at the present time. 03/22: Afebrile. Remains on 2 L nasal cannula. PJ 130 cc SS overnight. Complaining of pruritus with morphine sulfate. Requesting Vistaril. SUBJECTIVE: 03/23: Resting comfortably in bed. Right lower eye is swollen. Discussed with Dr. Delgado. No unusual effects from this type of surgery. Patient denies any vision changes, eye pain. PJ drain has been removed. Objective Vital Signs Date Time Temp Pulse Resp B/P (MAP) Pulse Ox O2 Delivery O2 Flow Rate FiO2 03/23/18 07:00 16 03/23/18 06:00 67 03/23/18 04:00 98.4 129/74 (92) 95 03/22/18 20:35 21 03/22/18 20:00 Room Air 03/21/18 20:55 2.00 Intake and Output 03/23/18 03/23/18 03/24/18 08:00 16:00 00:00 Intake Total 420 ml Output Total 400 ml Balance 20 ml Result Diagram: 03/23/18 0325 03/23/18 0325 Objective Remarks GENERAL: 43-year-old female currently resting in bed in no acute distress SKIN: Warm and dry. No rash HEAD: Status post right cranioplasty with PJ currently in place with sanguinous output EYES: Pupils equal and round. No scleral icterus. Right lower eyelid is swollen with clear drainage. ENT: No nasal bleeding or discharge. Mucous membranes pink and moist. NECK: Trachea midline. No JVD. CARDIOVASCULAR: Regular rate and rhythm. S1, S2. No S4. Without murmur RESPIRATORY: No accessory muscle use. Clear to auscultation. Breath sounds equal bilaterally. GASTROINTESTINAL: Abdomen soft, non-tender, nondistended. Hepatic and splenic margins not palpable. MUSCULOSKELETAL: Extremities without significant peripheral edema. No obvious deformities. NEUROLOGICAL: Awake and alert. No obvious cranial nerve deficits. Left upper l and ower extremity subjectively weaker compared to right. Left upper lower extremity contracted left lower extremity is currently in a Multi-Podus device PSYCHIATRIC: Appropriate mood and affect; insight and judgment normal. Urinary Catheter: No Assessment to: Continue Vascular Central Line Catheter: No Assessment to: Continue A/P Assessment and Plan Neuro/Psych: Postop day #2 right frontotemporal parietal cranioplasty with bone flap placement History of right CVA with left-sided residual weakness Seizure disorder Currently on hydrocodone/acetaminophen 10/325 1-2 tablets every 4 hours as needed pain 1 through 10 Continue levetiracetam 500 mg twice daily/home medication Currently holding baclofen 10 mg 3 times daily for muscle relaxant. Resume clinically indicated Resume citalopram 20 milligrams p.o. daily for depression. Acetaminophen 650 mg as needed for fever CV: Status post PFO closure 09/13 Currently normal saline with 20 mEq KCl at 100 cc an hour can be discontinued Currently not requiring vasopressors and/or antihypertensives Recent cardiac catheterization 03/06/[address] Perera 2D echocardiogram 02/12 revealed EF around 70%. Adequate positioning of intra- atrial septal occluder closure device Resp: Nasal cannula to maintain saturations greater than equal to 92%. 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 Glover for menorrhagia Postop management per AUDIO RECORDING ENGINEER Endo: Sliding scale insulin if indicated to maintain euglycemia Renal: Follow-up a.m. laboratories with creatinine. Baseline within normal limits Monitor urine output Accurate I's and O's Heme: Chronic warfarin use Normocytic anemia Previously on warfarin 7.5 mg daily exception of Tuesday which is 10 mg daily. Previously bridge with heparin? Per neurology for history of CVA. Resume anticoagulation with okay with AUDIO RECORDING ENGINEER and neurosurgery Monitor CBC. ID: Postoperative antibiotics with cefazolin 2 g IV every 8 hours 3 dosages per surgery has been completed Monitor for infection FEN: Replace electrolytes as clinically indicated. Received 40 mg KCl was 1 now MSK: PT evaluate and treat Access -Utilize peripheral IV. Central line if indicated Prophylaxis -GI -famotidine -DVT -SCD/pharmacologic prophylaxis when okay with neurosurgery/AUDIO RECORDING ENGINEER Level 2 follow up Okay to discharge from critical care medicine standpoint Jamison Purcell MD Mar 23, 2018 09:03
--- NOTE | 2018-03-23 09:48 | HHI.NSPN ---
History Chief Complaint: Incisional pain and headache. Interval History Patient is postop day #2 right cranioplasty. Patient has history of decompressive craniotomy for CVA. Today she is awake and alert, no complaints of headache. No nausea or vomiting. Exam Results Vital Signs Date Time Temp Pulse Resp B/P (MAP) Pulse Ox O2 Delivery O2 Flow Rate FiO2 03/23/18 07:00 16 03/23/18 06:00 67 03/23/18 04:00 98.4 129/74 (92) 95 03/22/18 20:35 21 03/22/18 20:00 Room Air 03/21/18 20:55 2.00 Intake and Output 03/23/18 03/23/18 03/24/18 08:00 16:00 00:00 Intake Total 420 ml Output Total 400 ml Balance 20 ml Physical Examination General: Pt awake and alert resting in ICU in NAD. Eyes: Pupils equal. Sclera anicteric. Resp: CTA bilaterally Heart: NSR no murmurs Abd: Soft positive bs Skin: Incision clean and dry. The drain has been removed Muscle: Moves right side well. Left side with flexion contractures in LUE and LLE in brace. Neuro: Pt awake and alert. Follows commands well. Pupils equal and reactive. Speech fluent comprehension good. Lab, Micro, Other Results Head CT 03/23/18 0600 Signed Impressions: Service Date/Time: February 03:29 - CONCLUSION: Large right MCA distribution infarct.. Jarrell Jason MD Laboratory Tests Test 03/23/18 03:25 White Blood Count 8.6 TH/MM3 Red Blood Count 2.96 MIL/MM3 Hemoglobin 9.0 GM/DL Hematocrit 26.9 % Mean Corpuscular Volume 90.6 FL Mean Corpuscular Hemoglobin 30.4 PG Mean Corpuscular Hemoglobin Concent 33.5 % Red Cell Distribution Width 15.0 % Platelet Count 319 TH/MM3 Mean Platelet Volume 7.4 FL Prothrombin Time 9.4 SEC Prothromb Time International Ratio 0.9 RATIO Activated Partial Thromboplast Time 22.6 SEC Blood Urea Nitrogen 11 MG/DL Creatinine 0.59 MG/DL Random Glucose 101 MG/DL Calcium Level 7.7 MG/DL Sodium Level 144 MEQ/L Potassium Level 3.5 MEQ/L Chloride Level 110 MEQ/L Carbon Dioxide Level 27.9 MEQ/L Anion Gap 6 MEQ/L Estimat Glomerular Filtration Rate 110 ML/MIN Medical Decision Making Impression and Plan Impression: 1. Doing well following replacement right craniotomy bone flap. Postoperative CT scan 03/23/2018 satisfactory. No significant midline shift. No postoperative hematoma noted. Mild to moderate residual ventriculomegaly- stable Plan: Findings discussed with patient She is stable for discharge home from a neurosurgical standpoint. May resume Coumadin postoperative. She will follow-up with Dr. Nathan outpatient for staple removal Elliott Oviedo MD Mar 23, 2018 09:48
--- NOTE | 2018-03-23 09:49 | HHI.DCPOC ---
Discharge Care Plan Your Health Problems Are: Difficulty with ADL Incision/Drains Loss of Movements Goals to Promote Your Health * To prevent worsening of your condition and complications * To maintain your health at the optimal level Directions to Meet Your Goals Take your medications as prescribed Follow your dietary instruction Follow activity as directed Keep your appointments as scheduled Take your immunizations and boosters as scheduled If your symptoms worsen call your PCP, if no PCP go to Urgent Care Center or Emergency Room Smoking is Dangerous to Your Health. Avoid second hand smoke Call the 24-hour hour crisis hotline for domestic abuse at Elliott Oviedo MD Mar 23, 2018 09:49
[2018-03-23] MEDS ORDERED: WARF-21 PO (10:31)
[2018-03-23] MEDS ORDERED: WARF-23 PO (10:31)
== END 2018-03-23 12:28 | disposition home or self-care (01) | DRG 516 ==
LOC: HSDI 06:43 → N03A 14:21
PROVIDERS: ADMIT Neurological Surgery; ATTEND Neurological Surgery
PROC: 0NS Head and Facial Bones, Reposition (ICD-10-PCS; 2018-03-21)
PROC: 0U598ZZ Destruction of Uterus, Via Natural or Artificial Opening Endoscopic (ICD-10-PCS; 2018-03-21)
PROC: 0NS104Z Reposition Frontal Bone with Internal Fixation Device, Open Approach (ICD-10-PCS; principal; 2018-03-21 08:33)
PROC: 0NS504Z Reposition Right Temporal Bone with Internal Fixation Device, Open Approach (ICD-10-PCS; 2018-03-21 08:33)
DX: M95.2 Other acquired deformity of head (principal); I69.354 Hemiplegia and hemiparesis following cerebral infarction affecting left non-dominant side; G93.89 Other specified disorders of brain; N92.0 Excessive and frequent menstruation with regular cycle; T40.2X5A Adverse effect of other opioids, initial encounter; L29.9 Pruritus, unspecified; D64.9 Anemia, unspecified; Z87.74 Personal history of (corrected) congenital malformations of heart and circulatory system; Z87.891 Personal history of nicotine dependence; G40.909 Epilepsy, unspecified, not intractable, without status epilepticus; K21.9 Gastro-esophageal reflux disease without esophagitis; F32.9 Major depressive disorder, single episode, unspecified; T45.515A Adverse effect of anticoagulants, initial encounter
CPT/HCPCS: 70450; 80048; 85025; 85027; 85610; 85730; 94150; C1713; J0131; J0690; J1100; J1580; J1953; J2150; J2175; J2250; J2270; J2405; J2710; J3010; J3370; J3475; J3480; J7120; Q0177

== ENCOUNTER → 2018-04-03 | Outpatient (CLI) | payer OTHER, MEDICAID ==
[2018-04-03 12:58] LABS: INTERNATIONAL NORMALIZED RATIO 1.5 RATIO; PROTHROMBIN TIME - PATIENT 15.2 SEC (9.8-11.6)
== END ==
LOC: CLAB 12:22
DX: Z86.73 Personal history of transient ischemic attack (TIA), and cerebral infarction without residual deficits (principal)
CPT/HCPCS: 36415; 85610

== ENCOUNTER → 2018-04-17 | Outpatient (CLI) | payer OTHER, MEDICAID ==
[~2018-04-17] MED LIST changes: +HYDR-3583 PO; -WARF-20 PO; +WARF-21 PO; +WARF-23 PO
[2018-04-17 14:32] LABS: INTERNATIONAL NORMALIZED RATIO 2.7 RATIO; PROTHROMBIN TIME - PATIENT 27.1 SEC (9.8-11.6)
== END ==
LOC: CLAB 13:37
PROVIDERS: ATTEND Family Medicine
DX: Z86.73 Personal history of transient ischemic attack (TIA), and cerebral infarction without residual deficits (principal)
CPT/HCPCS: 36415; 85610

== ENCOUNTER → 2018-05-01 | Outpatient (CLI) | payer OTHER, MEDICAID ==
[2018-05-01 13:15] LABS: INTERNATIONAL NORMALIZED RATIO 1.8 RATIO; PROTHROMBIN TIME - PATIENT 17.8 SEC (9.8-11.6)
== END ==
LOC: CLAB 12:29
PROVIDERS: ATTEND Family Medicine
DX: Z86.73 Personal history of transient ischemic attack (TIA), and cerebral infarction without residual deficits (principal)
CPT/HCPCS: 36415; 85610

== ENCOUNTER → 2018-05-15 | Outpatient (CLI) | payer OTHER, MEDICAID ==
[2018-05-15 13:58] LABS: INTERNATIONAL NORMALIZED RATIO 2.4 RATIO; PROTHROMBIN TIME - PATIENT 24.1 SEC (9.8-11.6)
== END ==
LOC: CLAB 12:36
PROVIDERS: ATTEND Family Medicine
DX: Z86.73 Personal history of transient ischemic attack (TIA), and cerebral infarction without residual deficits (principal)
CPT/HCPCS: 36415; 85610